=== PATIENT | female | born 1995 | race Caucasian/White ===

== ENCOUNTER 2023-02-02 08:04 | Outpatient (OUT) | payer MEDICAID, SELFPAY ==
--- NOTE | 2023-02-02 08:09 | US_ITS ---
The [address] [address] Patient Name: ROSALVA HARDIN MRN: [id number] date: 1995 Sex: F Assigned Patient Location: US Current Patient Location: US Accession/Order Number: [id number] Exam Date: 02/02/2023 08:20 Report Date: 02/02/2023 08:58 At the request of: SUZANNE JON Procedure: US OB transvaginal EXAMINATION: US OB transvaginal HISTORY: POSITIVE PREG TEST COMPARISON: No relevant comparison available. FINDINGS: GESTATIONAL SAC: Present and normal appearing. YOLK SAC: Present and normal appearing. POLE: Present and normal appearing. CARDIAC: Present. UTERUS: Normal size and appearance. OVARIES: Right: Normal. Left: Normal. CERVIX: 3.4 cm in length and closed. CUL-DE-SAC: Normal. OTHER: None. AGE BY LMP: 9 weeks 2 days HOLDEN BY LMP: 09/05/2023 AGE BY US CRL: 8 weeks 2 days HOLDEN BY US CRL: 09/12/2023 IMPRESSION: 1. Single live intrauterine . Electronically authenticated by: BRYAN ESPINO Date: 02/02/2023 08:58
== END 2023-02-02 08:05 ==
PROVIDERS: Visit Provider Obstetrics & Gynecology
DX: Z34.91 Encounter for supervision of normal pregnancy, unspecified, first trimester (principal); Z3A.09 9 weeks gestation of pregnancy
CPT/HCPCS: 76817

== ENCOUNTER 2023-02-09 16:27 | Outpatient (OUT) | payer MEDICAID, SELFPAY ==
[2023-02-09 17:11] LABS: Basophils Percent Auto 0.3 % (0.2-2.0); Eosinophils Absolute Auto 0.3 10^3/uL (0.0-0.7); Eosinophils Percent Auto 3.4 % (0.9-7.0); Hematocrit 36.3 % (36.0-48.0); Hemoglobin 12.2 g/dL (12.0-16.0); Immature Granulocytes Abs Auto 0.04 10^3/uL (0.00-0.03); Immature Granulocytes Pct Auto 0.4 % (0.0-0.5); Lymphocytes Absolute Auto 1.7 10^3/uL (1.2-3.8); Lymphocytes Percent Auto 17.6 % (20.5-60.0); Mean Corpuscular HGB Conc 33.6 g/dL (29.9-35.2); Mean Corpuscular Hemoglobin 30.5 pg (26.7-34.0); Mean Corpuscular Volume 90.8 fL (81.0-99.0); Mean Platelet Volume 9.6 fL (9.5-13.5); Monocytes Absolute Auto 0.9 10^3/uL (0.3-0.8); Monocytes Percent Auto 8.6 % (1.7-12.0); Neutrophils Absolute Auto 6.9 10^3/uL (1.4-6.5); Neutrophils Percent Auto 69.7 % (43.0-75.0); Platelet Count 225 10^3/uL (150-450); Red Cell Distribution Width 11.9 % (11.0-15.0); White Blood Count 9.9 10^3/uL (4.0-11.0)
[2023-02-09 17:33] LABS: Estimated Average Glucose 77 mg/dL; Glycohemoglobin A1C 4.3 % (4.5-6.2)
[2023-02-09 17:42] LABS: Thyroid Stimulating Hormone 1.029 uIU/mL (0.358-3.740)
[2023-02-11 07:07] LABS: Rubella Antibodies, IgG 2.44 index (Immune >0.99)
[2023-02-11 08:09] LABS: HBsAg Screen Negative (Negative); HCV Ab Non Reactive (Non Reactive); HIV Ab/p24 Ag Screen Non Reactive (Non Reactive)
[2023-02-11 09:09] LABS: Rapid Plasma Reagin, Quant Non Reactive (NonRea<1:1)
== END 2023-02-09 16:28 ==
PROVIDERS: Visit Provider Obstetrics & Gynecology
DX: Z34.01 Encounter for supervision of normal first pregnancy, first trimester (principal); N92.6 Irregular menstruation, unspecified
CPT/HCPCS: 36415; 83036; 84443; 85025; 86592; 86762; 86803; 86850; 86900; 86901; 87340; 87389

== ENCOUNTER 2023-03-08 16:21 | Emergency (ER) | payer MEDICAID, SELFPAY ==
[2023-03-08 16:25] VITALS: BP 135/90; PULSE 135; RESP 18; TEMP 36.7; O2SAT 100; BMI 25.7
[2023-03-08 16:29] VITALS: O2SAT 100
[2023-03-08 16:31] VITALS: BP 135/90; PULSE 77; PULSE 87; RESP 14; RESP 16; O2SAT 100; O2SAT 99
--- NOTE | 2023-03-08 16:33 | ECG_ITS ---
[facility] Test Date: 2023-03-08 Pat Name: Priyanka Shukla Department: Room: - Gender: Female [employer]ter: : 1995 Requested By: [id number] Order Number: [id number] Reading MD: KAYLEEN EISENBERG Measurements Intervals [place] Rate: 91 P: 58 NH: 130 QRS: 68 QRSD: 88 T: -9 QT: 336 QTc: 385 Interpretive Statements 1100 Sinus rhythm [address] depression [address] & [place] abnormality 9150 abnormal ECG No previous ECG available for comparison Electronically Signed On 03-09-2023 7:14:41 EDT by KAYLEEN EISENBERG
--- NOTE | 2023-03-08 16:34 | ED.GENADUL1 ---
HPI - General Adult General Chief complaint: Arrhythmia/Palpitations Stated complaint: HEART PALPITATIONS, 13 WEEKS Time Seen by Provider: 03/08/23 16:24 Source: patient Mode of arrival: walk-in Limitations: no limitations History of Present Illness HPI narrative: 27-year-old female who is thirteen weeks presents for palpitations. She feels an extra beat occasionally, about once an hour and she's had this for about a week. She doesn't drink much caffeine in all, she states she keeps an eye on that. No syncope or presyncope. No fever or vomiting. No vaginal bleeding. Related Data Allergies Allergy/AdvReac Type Severity Reaction Status Date / Time No Known Drug Allergies Allergy Verified 03/08/23 16:25 Review of Systems ROS Narrative A ten point review of systems is negative except as noted above. PFSH PFSH Social History Smoking status: Current every day smoker Exam Narrative Exam Narrative: Nurses note and vital signs reviewed and patient is not hypoxic. General: The patient appears well and in no apparent distress. Patient is resting comfortably on cart. Skin: Warm, dry, no pallor noted. There is no rash noted. Head: Normocephalic, atraumatic Eye: Normal conjunctiva, no drainage Ears, Nose, Mouth, and Throat: oral mucosa is moist. Nares patent. Cardiovascular: Regular Rate and Rhythm Respiratory: Patient is in no distress, no accessory muscle use, lungs are clear to auscultation, no wheezing, rales or rhonchi Back: non-tender GI: soft Musculoskeletal: The patient has no evidence of calf tenderness, no pitting edema, symmetrical pulses noted bilaterally Neurological: A&O, normal speech Psychiatric: Cooperative Constitutional Vital Signs - 24 hr 03/08/23 16:25 03/08/23 16:29 03/08/23 16:31 Temperature 98.1 F Pulse Rate 87 Pulse Rate [Monitor] 135 H Respiratory Rate 18 14 Blood Pressure 135/90 H Blood Pressure [Left Arm] 135/90 H Pulse Oximetry 100 100 99 Oxygen Delivery Method Room Air Course Vital Signs Vital signs: Vital Signs Temperature 98.1 F 03/08/23 16:25 Pulse Rate 135 H 03/08/23 16:25 Respiratory Rate 18 03/08/23 16:25 Blood Pressure 135/90 H 03/08/23 16:25 Pulse Oximetry 100 03/08/23 16:25 Oxygen Delivery Method Room Air 03/08/23 16:25 Temperature 98.1 F 03/08/23 16:25 Pulse Rate 87 03/08/23 16:31 Respiratory Rate 14 03/08/23 16:31 Blood Pressure 135/90 H 03/08/23 16:31 Pulse Oximetry 99 03/08/23 16:31 Oxygen Delivery Method Room Air 03/08/23 16:25 Medical Decision Making MDM Narrative Medical decision making narrative: we've had the patient on heart monitor and she's had no dysrhythmias and she hasn't had any symptoms either. Blood work is essentially normal and she'll be discharged home. Treatment diagnosis and follow-up were discussed with the patient. Differential Diagnosis Differential Diagnosis: PVCs, anxiety Lab Data Lab results reviewed: Yes I reviewed the patient's lab results Labs: Lab Results 03/08/23 Range/Units 16:42 WBC 10.0 (4.0-11.0) 10^3/uL RBC 3.61 L (4.20-5.40) 10^6/uL Hgb 11.1 L (12.0-16.0) g/dL Hct 31.9 L (36.0-48.0) % MCV 88.4 (81.0-99.0) fL MCH 30.7 (26.7-34.0) pg MCHC 34.8 (29.9-35.2) g/dL RDW 12.1 (11.0-15.0) % Plt Count 235 (150-450) 10^3/uL MPV 9.5 (9.5-13.5) fL Neut % (Auto) 65.1 (43.0-75.0) % Lymph % (Auto) 21.0 (20.5-60.0) % Taylor % (Auto) 8.5 (1.7-12.0) % Eos % (Auto) 4.6 (0.9-7.0) % Baso % (Auto) 0.3 (0.2-2.0) % Neut # (Auto) 6.5 (1.4-6.5) 10^3/uL Lymph # (Auto) 2.1 (1.2-3.8) 10^3/uL Taylor # (Auto) 0.9 H (0.3-0.8) 10^3/uL Eos # (Auto) 0.5 (0.0-0.7) 10^3/uL Baso # (Auto) 0.0 (0.0-0.1) 10^3/uL Abs Immat Gran (auto) 0.05 H (0.00-0.03) 10^3/uL Imm/Tot Granulo (auto) 0.5 (0.0-0.5) % Sodium 136 (136-145) mmol/L Potassium 3.9 (3.5-5.1) mmol/L Chloride 103 (98-107) mmol/L Carbon Dioxide 26.9 (21.0-32.0) mmol/L Anion Gap 10.0 BUN 9.0 (7.0-18.0) mg/dL Creatinine 0.52 L (0.55-1.02) mg/dL Est GFR ( Amer) >60 (>=60) Est GFR (Non-Af Amer) >60 (>=60) BUN/Creatinine Ratio 17.3 Glucose 90 (74-106) mg/dL Calcium 8.9 (8.5-10.1) mg/dL ECG Data Attestation: I personally reviewed and interpreted this ECG as follows: ( EKG on my interpretation shows sinus rhythm with a rate of 91) Discharge Plan Discharge Chief Complaint: Arrhythmia/Palpitations Clinical Impression: Palpitations Patient Disposition: Home, Self-Care Time of Disposition Decision: 17:16 Condition: Good Mode of Transportation: Private Vehicle Instructions: Heart Palpitations (ED) Stand Alone Forms: Portal Instructions Referrals: [facility] [Primary Care Provider] - 1 week
[2023-03-08 16:58] LABS: Basophils Percent Auto 0.3 % (0.2-2.0); Eosinophils Absolute Auto 0.5 10^3/uL (0.0-0.7); Eosinophils Percent Auto 4.6 % (0.9-7.0); Hematocrit 31.9 % (36.0-48.0); Hemoglobin 11.1 g/dL (12.0-16.0); Immature Granulocytes Abs Auto 0.05 10^3/uL (0.00-0.03); Immature Granulocytes Pct Auto 0.5 % (0.0-0.5); Lymphocytes Absolute Auto 2.1 10^3/uL (1.2-3.8); Mean Corpuscular HGB Conc 34.8 g/dL (29.9-35.2); Mean Corpuscular Hemoglobin 30.7 pg (26.7-34.0); Mean Corpuscular Volume 88.4 fL (81.0-99.0); Mean Platelet Volume 9.5 fL (9.5-13.5); Monocytes Absolute Auto 0.9 10^3/uL (0.3-0.8); Monocytes Percent Auto 8.5 % (1.7-12.0); Neutrophils Absolute Auto 6.5 10^3/uL (1.4-6.5); Neutrophils Percent Auto 65.1 % (43.0-75.0); Platelet Count 235 10^3/uL (150-450); Red Blood Count 3.61 10^6/uL (4.20-5.40); Red Cell Distribution Width 12.1 % (11.0-15.0)
[2023-03-08] MEDS: 0.9 % SODIUM CHLORIDE 1,000 ML 1000 ML IV (16:59)
[2023-03-08 17:02] LABS: BUN Creatinine Ratio 17.3; Calcium 8.9 mg/dL (8.5-10.1); Carbon Dioxide 26.9 mmol/L (21.0-32.0); Chloride 103 mmol/L (98-107); Estimated GFR (African America >60 (>=60); Estimated GFR (Non-African Ame >60 (>=60); Glucose 90 mg/dL (74-106); Potassium 3.9 mmol/L (3.5-5.1); Sodium 136 mmol/L (136-145)
[2023-03-08 17:36] VITALS: BP 107/66
== END 2023-03-08 18:03 | disposition home or self-care (01) ==
PROVIDERS: Emergency Provider Emergency Medicine
DX: O26.891 Other specified pregnancy related conditions, first trimester (principal); R00.2 Palpitations; O99.331 Smoking (tobacco) complicating pregnancy, first trimester; F17.210 Nicotine dependence, cigarettes, uncomplicated; Z3A.12 12 weeks gestation of pregnancy
CPT/HCPCS: 36415; 80048; 85025; 93005; 99284

== ENCOUNTER 2023-03-14 10:50 | Outpatient (RCR) | payer OTHER, SELFPAY | END 2023-04-14 15:56 | disposition home or self-care (01) | LOC: PT 10:50 | PROVIDERS: Visit Provider Nurse Practitioner Family | DX: S83.282D Other tear of lateral meniscus, current injury, left knee, subsequent encounter (principal) | CPT/HCPCS: 97110; 97162 ==

== ENCOUNTER 2023-04-16 21:37 | Outpatient (REF) | payer BC, SELFPAY ==
[2023-04-20 14:14] LABS: Age Gdln ACOG Testing Note (.); IGP, rfx Aptima HPV ASCU Note (.)
== END 2023-04-16 21:38 | disposition home or self-care (01) ==
LOC: LAB 21:37
PROVIDERS: Visit Provider Physician Assistant
DX: Z01.419 Encounter for gynecological examination (general) (routine) without abnormal findings (principal)
CPT/HCPCS: G0145

== ENCOUNTER 2023-04-19 16:32 | Outpatient (OUT) | payer BC, SELFPAY ==
[2023-04-26 00:07] LABS: AFP Value 60.8 ng/mL (.); Gestat. Age Based On As provided (.); Maternal Age At EDD 26.5 yr (.); OSBR Risk 1 IN See interpretation. (.); Results Report (.)
== END 2023-04-19 16:33 | disposition home or self-care (01) ==
PROVIDERS: Visit Provider Obstetrics & Gynecology
DX: Z34.92 Encounter for supervision of normal pregnancy, unspecified, second trimester (principal)
CPT/HCPCS: 36415; 82105

== ENCOUNTER 2023-05-18 09:58 | Outpatient (OUT) | payer BC, SELFPAY ==
--- NOTE | 2023-05-18 10:03 | US_ITS ---
[address] [address] Patient Name: ROSALVA HARDIN MRN: [id number] date: 1995 Sex: F Assigned Patient Location: US Current Patient Location: Accession/Order Number: [id number] Exam Date: 05/18/2023 10:04 Report Date: 05/18/2023 18:14 At the request of: PONCE ADLER Procedure: US OB cervical length EXAMINATION: US OB anatomy, US OB cervical length HISTORY: Second trimester Z34.92 COMPARISON: No relevant comparison available. TECHNIQUE: Transabdominal sonographic examination was performed for obstetrical and evaluation. FINDINGS: Number: 1 Heart Rate: 146.7 bpm H.B. /min Amniotic Fluid Volume: position: Cephalic presentation, longitudinal lie Placental Location: ANTERIOR, grade 0. Placental edge is 4.2 cm from the internal os Cervix Length: 4.4 cm , closed Normal anatomy: Lateral ventricles, cerebellum, posterior fossa, nose, lips, orbits, four-chamber heart, RVOT, LVOT, diaphragm, stomach, kidneys, abdominal cord insertion, bladder, umbilical arteries, three-vessel cord, spine, extremities BIOMETRY: BPD: 5.6 cm 23 weeks 1 days , 40% HC: 21.8 cm 23 weeks 6 days, 59% AC: 20.4 cm 25 weeks 0 days, 88% FL: 4.2 cm 23 weeks 4 days, 47% EFW:676.5 grams; 1 lb. 8 oz., 86% FL/AC: 20.4 FL/BPD: 74.1 HC/AC: 1.1 GESTATIONAL AGE: Age by EDC: 23 weeks 2 days Age by current US: 23 weeks 6 days HOLDEN by current US: 09/08/2023 HOLDEN by EDC: 09/12/2023 US/US OB cervical length IMPRESSION: Normal anatomy scan Closed cervix measuring 4.4 cm *Reference: [employer] Practice Guideline for the performance of Obstetric Ultrasound Examinations, June 03, 2007. Electronically authenticated by: RONNY NARANJO Date: 05/18/2023 18:14
--- NOTE | 2023-05-18 10:03 | US_ITS ---
[address] [address] Patient Name: ROSALVA HARDIN MRN: [id number] date: 1995 Sex: F Assigned Patient Location: US Current Patient Location: US Accession/Order Number: [id number] Exam Date: 05/18/2023 10:04 Report Date: 05/18/2023 18:14 At the request of: PONCE ADLER Procedure: US OB anatomy EXAMINATION: US OB anatomy, US OB cervical length HISTORY: Second trimester Z34.92 COMPARISON: No relevant comparison available. TECHNIQUE: Transabdominal sonographic examination was performed for obstetrical and evaluation. FINDINGS: Number: 1 Heart Rate: 146.7 bpm H.B. /min Amniotic Fluid Volume: position: Cephalic presentation, longitudinal lie Placental Location: ANTERIOR, grade 0. Placental edge is 4.2 cm from the internal os Cervix Length: 4.4 cm , closed Normal anatomy: Lateral ventricles, cerebellum, posterior fossa, nose, lips, orbits, four-chamber heart, RVOT, LVOT, diaphragm, stomach, kidneys, abdominal cord insertion, bladder, umbilical arteries, three-vessel cord, spine, extremities BIOMETRY: BPD: 5.6 cm 23 weeks 1 days , 40% HC: 21.8 cm 23 weeks 6 days, 59% AC: 20.4 cm 25 weeks 0 days, 88% FL: 4.2 cm 23 weeks 4 days, 47% EFW:676.5 grams; 1 lb. 8 oz., 86% FL/AC: 20.4 FL/BPD: 74.1 HC/AC: 1.1 GESTATIONAL AGE: Age by EDC: 23 weeks 2 days Age by current US: 23 weeks 6 days HOLDEN by current US: 09/08/2023 HOLDEN by EDC: 09/12/2023 US/US OB anatomy IMPRESSION: Normal anatomy scan Closed cervix measuring 4.4 cm *Reference: [employer] Practice Guideline for the performance of Obstetric Ultrasound Examinations, June 03, 2007. Electronically authenticated by: RONNY NARANJO Date: 05/18/2023 18:14
== END 2023-05-18 09:59 | disposition home or self-care (01) ==
LOC: US 09:59
PROVIDERS: Visit Provider Physician Assistant
DX: Z34.92 Encounter for supervision of normal pregnancy, unspecified, second trimester (principal)
CPT/HCPCS: 76805; 76817

== ENCOUNTER 2023-05-21 12:51 | Outpatient (RCR) | payer OTHER, SELFPAY | END 2023-06-01 15:02 | disposition home or self-care (01) | LOC: PT 12:51 | DX: S83.92XD Sprain of unspecified site of left knee, subsequent encounter (principal); M79.605 Pain in left leg | CPT/HCPCS: 97110; 97161 ==

== ENCOUNTER 2023-06-13 08:19 | Outpatient (OUT) | payer BC, SELFPAY ==
[2023-06-13 09:40] LABS: Basophils Percent Auto 0.2 % (0.2-2.0); Eosinophils Absolute Auto 0.3 10^3/uL (0.0-0.7); Eosinophils Percent Auto 2.2 % (0.9-7.0); Hematocrit 31.4 % (36.0-48.0); Hemoglobin 10.5 g/dL (12.0-16.0); Immature Granulocytes Abs Auto 0.13 10^3/uL (0.00-0.03); Lymphocytes Absolute Auto 1.7 10^3/uL (1.2-3.8); Lymphocytes Percent Auto 13.4 % (20.5-60.0); Mean Corpuscular HGB Conc 33.4 g/dL (29.9-35.2); Mean Corpuscular Hemoglobin 31.4 pg (26.7-34.0); Mean Platelet Volume 9.5 fL (9.5-13.5); Monocytes Absolute Auto 0.9 10^3/uL (0.3-0.8); Neutrophils Absolute Auto 9.5 10^3/uL (1.4-6.5); Neutrophils Percent Auto 76.2 % (43.0-75.0); Platelet Count 207 10^3/uL (150-450); Red Blood Count 3.34 10^6/uL (4.20-5.40); Red Cell Distribution Width 13.1 % (11.0-15.0); White Blood Count 12.5 10^3/uL (4.0-11.0)
[2023-06-13 09:52] LABS: Glucose 1 Hour 89 mg/dL
== END 2023-06-13 08:20 | disposition home or self-care (01) ==
LOC: LAB 08:21
PROVIDERS: Visit Provider Obstetrics & Gynecology
DX: Z34.92 Encounter for supervision of normal pregnancy, unspecified, second trimester (principal)
CPT/HCPCS: 36415; 82950; 85025

== ENCOUNTER 2023-08-16 20:35 | Outpatient (REF) | payer BC, SELFPAY | END 2023-08-16 20:36 | disposition home or self-care (01) | LOC: LAB 20:35 | PROVIDERS: Visit Provider Physician Assistant | DX: Z34.93 Encounter for supervision of normal pregnancy, unspecified, third trimester (principal) | CPT/HCPCS: 87081 ==

== ENCOUNTER 2023-08-17 11:05 | Outpatient (OUT) | payer BC, MEDICAID, SELFPAY ==
--- NOTE | 2023-08-17 11:12 | US_ITS ---
[address] [address] Patient Name: ROSALVA HARDIN MRN: [id number] date: 1995 Sex: F Assigned Patient Location: US Current Patient Location: Accession/Order Number: [id number] Exam Date: 08/17/2023 11:15 Report Date: 08/17/2023 12:08 At the request of: SUZANNE JON Procedure: US OB growth EXAMINATION: US OB growth HISTORY: Size Inconsistent With Dates COMPARISON: No relevant comparison available. TECHNIQUE: Transabdominal sonographic examination was performed for obstetrical and evaluation. FINDINGS: Number: 1 Heart Rate: 135.7 bpm H.B. /min position: Cephalic presentation, longitudinal lie Amniotic Fluid Volume: 10.2 cm. Largest fluid pocket 5.4 cm Placental Location: Blank BIOMETRY: BPD: 8.8 cm 35 weeks 5 days , 43% HC: 33.4 cm 38 weeks 1 days, 66% AC: 33.8 cm 37 weeks 5 days, 92% FL: 7.2 cm 36 weeks 5 days , 59% EFW:3171.1 grams; 7 lbs. 0 oz., 79% FL/AC: 21.2 FL/BPD: 81.2 HC/AC: 1.0 GESTATIONAL AGE: Age by EDC: 36 weeks 2 days Age by current US: 37 weeks 1 days HOLDEN by current US: 09/06/2023 HOLDEN by EDC: 09/12/2023 US/US OB growth IMPRESSION: Normal interval growth *Reference: [employer] Practice Guideline for the performance of Obstetric Ultrasound Examinations, June 03, 2007. Electronically authenticated by: RONNY NARANJO Date: 08/17/2023 12:08
== END 2023-08-17 11:06 | disposition home or self-care (01) ==
LOC: US 11:05
PROVIDERS: Visit Provider Obstetrics & Gynecology
DX: O26.849 Uterine size-date discrepancy, unspecified trimester (principal); Z3A.36 36 weeks gestation of pregnancy
CPT/HCPCS: 76816

== ENCOUNTER 2023-09-09 10:52 | Inpatient (IN) | payer MEDICAID, SELFPAY ==
[2023-09-09] VITALS (34 sets, daily range): BP systolic 98–143; BP diastolic 50–92; PULSE 86–118; RESP 15–32; TEMP 36.1–37.2; O2SAT 96–100
--- OUTSIDE RECORDS SUMMARY | 2023-09-09 10:57 | XMS_ITS | CCD ---
Author Name Unknown Address [address] [place] [address] Organization [facility] Care Team Providers Care Environmental Management Specialist Name Role Phone Kyle Pepe Attending Unavailable Kyle Pepe Admitting Unavailable Shannon Glez Primary Care Unavailable MD Shannon Glez Primary Care Provider [phone] MD Kyle Pepe Admit Provider MD Kyle Pepe Attending Provider FIONA GRIER Primary Care Unavailable LIZ, DR CRAVEN Admitting Unavailable LIZ, DR CRAVEN Attending Unavailable SRINIVAS, DR BRYAN Hernandez Consulting Unavailable INDIA SAGASTUME Consulting Unavailable LIZ, DR CRAVEN Consulting Unavailable DAMI CHAPIN Admitting Unavailable DAMI CHAPIN Attending Unavailable [facility] Primary Care Unavaila liz NARANJO, DR RONNY Gan Consulting Unavailable DAMI CHAPIN Consulting Unavailable DANAY, DR PALACIOS Admitting Unavailable DANAY, DR PALACIOS Attending Unavailable FIONA GRIER Primary Care Unavailable DANAY, DR PALACIOS Consulting Unavailable FIONA GRIER Primary Care Unavailable LIZ, DR CRAVEN Admitting Unavailable LIZ, DR CRAVEN Attending Unavailable SRINIVAS, DR BRYAN Hernandez Consulting Unavailable LIZ, DR CRAVEN Consulting Unavailable AUDREY MORGAN Referring Unavailable AUDREY MORGAN Attending Unavailable RONNY SAHA Attending Unavailable RONNY SAHA Attending Unavailable DAMI CHAPIN Referring Unavailable Elvis Quinn Referring Unavaila Elvis Perez Attending UnavailElvis Peterson Admitting Unavaila Sai Godoy Attending Unavailable ANN GRIERIN Maday Referring Unavailable FIONA GRIER Attending Unavailable ANNA, PEYTON Nassar Admitting Unavailable Sunshine Mejias Attending Unavailable Katherin PETERSEN Attending Unavailable Papi Lilly Attending Unavailable SUZANNE JON Attending Unavailable PONCE ADLER Attending Unavailable SUZANNE JON Attending Unavailable PONCE ADLER Attending Unavailable PONCE ADLER Attending Unavailable PONCE ADLER Attending Unavailable Medications Current Medications Medication Drug Class(es) Dates Sig (Normalized) Sig (Original) DULoxetine 30 mg delayed release oral capsule (1 source) Serotonin and Norepinephrine Reuptake Inhibitor Start: 07-03-2022 take 30 mg by mouth once daily at bedtime Duloxetine Active 30 MG PO Daily at bedtime July 03, 2022 12:00am 1.5 ml fremanezumab-vfrm 150 mg/ml prefilled syringe (1 source) Start: 06-30-2022 Fremanezumab-Vfr m (Ajovy Autoinjector) 225 mg/1.5 mL Auto-Injector Active 225 MG SUBCUT every week June 30, 2022 12:00am traZODone hydrochloride 50 mg oral tablet (1 source) Serotonin Reuptake Inhibitor Start: 07-03-2022 take 50 mg by mouth once daily at bedtime Trazodone Active 50 MG PO Daily at bedtime July 03, 2022 12:00am Problems Active Problems Problem Classification Problem Date Documented Da te Episodic/Chronic Anxiety disorders (3 sources) Anxiety disorder, unspecified; Translations: [Anxiety] Onset: 06-30-2022 06-30-2022 Chronic E Codes: Natural/environment (1 source) Exposure to other specified factors, initial encounter; Translations: [EXPOSURE OTHER SPEC FACTORS INITIAL] Onset: 09-08-2022 Episodic Joint disorders and dislocations; trauma-related (3 sources) Unspecified internal derangement of left knee; Translations: [Other disorders of patella, left knee] Onset: 11-13-2022 Chronic Mood disorders (1 source) Bipolar disorder, unspecified; Translations: [Bipolar disorder, unspecified] Onset: 06-30-2022 Chronic Other non-traumatic joint disorders (3 sources) Pain in left knee; Translations: [PAIN IN LEFT KNEE] Onset: 09-06-2022 Episodic Sprains and strains (4 sources) Sprain of unspecified site of left knee, initial encounter; Translations: [Unspecified sprain of right wrist, initial encounter] Onset: 04-06-2022 Episodic Suicide and intentional self-inflicted injury (6 sources) Poisoning by unspecified drugs, medicaments and biological substances, intentional self-harm, initial encounter; Translations: [Suicidal ideations] Onset: 06-30-2022 06-30-2022 Episodic Past or Other Problems Problem Classification Problem Date Documented Date Episodic/Chronic E Codes: Fall (1 source) Fall on same level from slipping, tripping and stumbling with subsequent striking against unspecified object, initial encounter; Translations: [FALL SAME LVL SLIP STRK UNS OBJ INT] Onset: 04-06-2022 Episodic Immunizations and screening for infectious disease (1 source) Encounter for screening for human papillomavirus (HPV); Translations: [ENC SCREENING HUMAN PAPILLOMAVIRUS] Onset: 03-21-2022 Episodic Other non-traumatic joint disorders (4 sources) Pain in left wrist; Translations: [PAIN IN LEFT WRIST] Onset: 04-04-2022 Episodic Other screening for suspected conditions (not mental disorders or infectious disease) (4 sources) Encounter for screening for malignant neoplasm of cervix; Translations: [ENC SCREENING MALIG NEOPLASM CERV] Onset: 03-20-2022 Episodic Results Test Name Value Interpretation Reference Range Facility Family Medicine Office/Clini c Noteon 06-06-2023 Family Medicine Office/Clinic Note Chief Complaint EST cough congestion HPI Staff 28 year old female presents with being 26 weeks with congestion cough and sore throat states she is so congested that she hears it from her ears?! states she doesnt know what to take due to started a week ago History of Present Illness I have reviewed and verified the staff HPI to be accurate for this encounter. Portions of this record have been created with voice recognition software. Occasional wrong-word or ?fpgga-o-eyos? substitutions may have occurred due to the inherent limitations of voice recognition software. 28-year-old female who is currently 26 weeks gestation G2, P0 states 1 prior which she states she had a blighted ovum. Patient complaint today of sinus congestion cough in which she states she has been intermittent over the past several weeks. She states in the past 6 to 7 days she has noted sinus congestion and pressure in bilateral ears. She states initially she had sore throat however that resolved. She does note cough. Patient states she was coughing more so this morning but improves throughout the course of the day. She states some sinus pressure and bilateral ear pressure. She wants to make sure that she does not have a sinus infection but also states she does not know what xege-yrm-abuybuu medications she is able to take. She denies any abdominal pain nausea vomiting or diarrhea denies any pelvic pain vaginal pain or vaginal bleeding. She states overall she has felt pretty good so far during this . She denies any nausea vomiting diarrhea or abdominal pain. She states at the time of symptom onset her boss had similar symptoms but denies any other recent sick contacts or recent travel. She does note she did take a home COVID-19 test a couple days ago that was negative and she does not have concern for COVID-19 today. She denies fever chills or weakness. She has no other concerns at this time. Review of Systems PHQ Score Initial Depression Screen Score: 0 ROS negative unless otherwise stated in HPI. Physical Exam Vitals & Measurements T: 37 ?C(Oral) HR: 84(Peripheral) BP: 114/76 SpO2: 99% HT: 63 in HT: 159 cm WT: 76 kg WT: 167.2 lb BMI: 30.06 General: Pleasant female, no acute distress Eyes: Bilateral conjunctival within normal limits no injection Ears: Bilateral tympanic membranes are within normal limits no erythema or bulging. Bilateral external auditory canals are within normal limits no erythema or edema. Nose: mild nasal mucosa inflammation and edema Mouth: No tonsillar erythema or exudate. Uvula is midline. No signs of peritonsillar abscess. No trismus or drooling. Neck: no adenopathy Lungs: Lung sounds are clear bilaterally. No wheezing rhonchi or crackles on exam. Cardio: S1, S2, regular rhythm. No murmurs gallops or rubs. Abdomen: abdomen soft Musculoskeletal: not assessed Extremity: not assessed Neurologic: not assessed Skin: No rashes, ulcerations, or suspicious lesions Mental Status: Alert and oriented x3. Normal mood and affect Assessment/Plan I discussed with pt that flonase is safe in , but to always confirm with OB, in addition to asking about plain robitussin for cough. Pt is of understanding. She understands to return if needed for any worsening or concerning symptoms. Seek OB if spike high fever, develop chest pain, SOB, or trouble breathing. 1. Viral URI with cough (J06.9: Acute upper respiratory infection, unspecified) Discussed exam and hx are consistent with viral illness. Advised of typical duration. Discussed antibiotics unfortunately do not treat viral illnesses, it will take time to run course- usually 7-14 days. Fluids/rest encouraged, PRN tylenol/ibuprofen for any pain. May use flonase for symptomatic tx. Contact round cutter operator to confirm flonase is safe usage in addition to plain robitussin. Follow up with PCP if not improving over next --- days or significantly worsening symptoms. Patient verbalized understanding of tx plan. Ordered: fluticasone nasal, 1 spray(s), Nasal, BID for 7 day(s), 16 gm, Refill(s) 0, each nostril, [facility], 159, cm, 06/06/23 11:45:00 EDT, Height/Length Dosing, 76, kg, 06/06/23 11:45:00 EDT, Weight Dosing Follow-up With When Contact Information Newton DUNCAN, Shannon [address] [place] [address]- Additional Instructions: Patient Education Upper Respiratory Infection, Adult Problem List/Past Medical History Ongoing Acute medial meniscus tear of left knee Anxiety Chlamydia Episodic mood disorder. Lower back pain Posttraumatic stress disorder Suicide attempt Historical No qualifying data Procedure/Surgical History Dilation and curettage. Medications Flonase 0.05 mg/inh [place], 1 spray(s), Nasal, BID Allergies No Known Allergies Social History Alcohol - Low Risk, 12/09/2022 Current, 1-2 times per month, Household alcohol concerns: No., 12/09/2022 Substance Abuse - Low Risk, 12/09/2022 (more content not included)... Normal [facility] Comment on above: Result Comment: Elec tronically Signed By: Maxx WHALEN, Papi Green\.br\Date and Time Signed: 06/06/23 13:07 EDT Patient Educationon 06-06-20 Patient Education Infectious Disease Upper Respiratory Infection, Adult An upper respiratory infection (URI) is a common viral infection of the nose, throat, and upper air passages that lead to the lungs. The most common type of URI is the common cold. URIs usually get better on their own, without medical treatment. What are the causes? A URI is caused by a virus. You may catch a virus by: ? Breathing in droplets from an infected person's cough or sneeze. ? Touching something that has been exposed to the virus (is contaminated) and then touching your mouth, nose, or eyes. What increases the risk? You are more likely to get a URI if: ? You are very young or very old. ? You have close contact with others, such as at work, school, or a health care facility. ? You smoke. ? You have long-term (chronic) heart or lung disease. ? You have a weakened disease-fighting system (immune system). ? You have nasal allergies or asthma. ? You are experiencing a lot of stress. ? You have poor nutrition. What are the signs or symptoms? A URI usually involves some of the following symptoms: ? Runny or stuffy (congested) nose. ? Cough. ? Sneezing. ? Sore throat. ? Headache. ? Fatigue. ? Fever. ? Loss of appetite. ? Pain in your forehead, behind your eyes, and over your cheekbones (sinus pain). ? Muscle aches. ? Redness or irritation of the eyes. ? Pressure in the ears or face. How is this diagnosed? This condition may be diagnosed based on your medical history and symptoms, and a physical exam. Your health care provider may use a swab to take a mucus sample from your nose (nasal swab). This sample can be tested to determine what virus is causing the illness. How is this treated? URIs usually get better on their own within 7?10 days. Medicines cannot cure URIs, but your health care provider may recommend certain medicines to help relieve symptoms, such as: ? Usdx-yjb-wnoysuw cold medicines. ? Cough suppressants. Coughing is a type of defense against infection that helps to clear the respiratory system, so take these medicines only as recommended by your health care provider. ? Fever-reducing medicines. Follow these instructions at home: Activity ? Rest as needed. ? If you have a fever, stay home from work or school until your fever is gone or until your health care provider says your URI cannot spread to other people (is no longer contagious). Your health care provider may have you wear a face mask to prevent your infection from spreading. Relieving symptoms ? Gargle with a mixture of salt and water 3?4 times a day or as needed. To make salt water, completely dissolve ??1 tsp (3?6 g) of salt in 1 cup (237 mL) of warm water. ? Use a cool-mist humidifier to add moisture to the air. This can help you breathe more easily. Eating and drinking ? Drink enough fluid to keep your urine pale yellow. ? Eat soups and other clear broths. General instructions ? Take hkoe-fik-qojyjnz and prescription medicines only as told by your health care provider. These include cold medicines, fever reducers, and cough suppressants. ? Do not use any products that contain nicotine or tobacco. These products include cigarettes, chewing tobacco, and vaping devices, such as e-cigarettes. If you need help quitting, ask your health care provider. ? Stay away from secondhand smoke. ? Stay up to date on all immunizations, including the yearly (annual) flu vaccine. ? Keep all follow-up visits. This is important. How to prevent the spread of infection to others URIs can be contagious. To prevent the infection from spreading: ? Wash your hands with soap and water for at least 20 seconds. If soap and water are not available, use hand general inspector. ? Avoid touching your mouth, face, eyes, or nose. ? Cough or sneeze into a tissue or your sleeve or elbow instead of into your hand or into the air. Contact a health care provider if: ? You are getting worse instead of better. ? You have a fever or chills. ? Your mucus is brown or red. ? You have yellow or brown discharge coming from your nose. ? You have pain in your face, especially when you bend forward. ? You have swollen neck glands. ? You have pain while swallowing. ? You have white areas in the back of your throat. Get help right away if: ? You have shortness of breath that gets worse. ? You have severe or persistent: ? Headache. ? Ear pain. ? Sinus pain. ? Chest pain. ? You have chronic lung disease along with any of the following: ? Making high-pitched whistling sounds when you breathe, most often when you breathe out (wheezing). ? Prolonged cough (more than 14 days). ? Coughing up blood. ? A change in your usual mucus. ? You have a stiff neck. ? You have changes in your: ? Vision. ? Hearing. ? Thinking. ? Mood. These symptoms may be an emergency. Get help (more content not included)... Normal [facility] Follow-Upon 06-04-2023 Follow-Up [id number] Priyanka Hardin 1995 F Date Provider Department Center 06/04/2023 RONNY AZAR MP ORTHO MPORTHO No family history on file Level of Service:07879 [place] OFFICE/OUTPATIENT ESTABLISHED MOD MDM 30-39 MIN () Reason for Visit and Comments: Pain [136] Normal [facility] Office Visiton 04-24-2023 Follow-up visit [id number] Priyanka Hardin 1995 F Date Provider Department Center 04/24/2023 RONNY AZAR MP No family history on file Level of Service:39773 [place] OFFICE/OUTPATIENT NEW MODERATE MDM 45-59 MINUTES Reason for Visit and Comments: Pain [136] - BWC Injury, meniscus tear injured 09/06/2022 [facility] ST - Assessments[facility] ST - Assessments [id number] #1.00CD:127 Normal [facility] Coding Summary.on 01-01-2023 Coding Summary. CD:[id number] W w+PGhlYWQ+VK7QKUMaR60 dlHXryC6uD9BWZMfQOeom SJRAMLlSOcHbdyOgZA9mp XNjZXJu IC8+LG4pESJiZnyvwRXve 9Z6wZX0D71hth2jOQdbzJ I4GEXzQvEmvyjgd2zyrKx 6IDcuNmluOyBt OHWjvA98DVW8eK33Ox47e CTsiKWez1gacMa1TdAiKL NnLJX8kEjvLPawn2XhDRQ vB77xpEEiv4W4 GMJkoHtgoWCwGrVtsYU6c F4zKPzkaqwrk7knnzroEg b7kf09rNSas6W9hPF8S9Q jwcY9LNQdnBAq TklvwCZErV3cjdhkg3tiq gbrAoNnDKAhZPr3HMz9JJ OxnLmmKjViKK73IKM9CRC fzoJoS2XeNKOa cQzzCnR2f8O9Hi0FC7ERU haaI4LIHMRHXJovqFZ+PC 34el35R0AvUceeFgk3LJK rHHI8pVY9vW8q CRByYExvv3A9vQD0J0Xyz rNjiy4gx0vmEELmRUrhN2 8gxEVvq8M5MJTlsPD5XUY wbViePgZpxS52 Oyc+WJRzlRnnt6WyKxlqz 7ohd7dcuBt7OgktUMCnqh MlyXoiWQU9e6WgRu7uXBC klFC1iJH4cG0q JrSsRmT5NTsnX101BcDkd WTzZbazI40zK3CgyRR+PH RlZej4VDZmpQwaPX1eU0N hZGRpbmctbGVm jKxdGL2lEPQdfozaKENgu L2jPPItY8u2ViFeZsE2EE ppH7NtCQFmvbdkGp73zV2 dCfJiIiB4JHjh I0SgeaG8GYAkiUIeHWuxU TS4A97sr8O7IKCnYAZdCZ T7yPY1tH5buXhapdcryPD mdDsgdmVydGlj BRaaYJvyI640WSYhkWysT kNvZGluZyBEYXRlOiAgMD UvMDEvMjAyMzwvdGQ+PHR sSZQ5oNzrZJYc iIVnWJnuMy3ahVcxqFhtV X4sXGDeybilQBZqaC3nKQ BqjFLwtHyrRJ2uYQGmctm yc831ScCfGAJ5 JFIjpKGuA2GsnV1lUeRvO QGxLOKuY8MbdBHjBJpkU4 14XBrnAzT2RDTptjDtD6X sLWFsaWduOiB0 w8S1Go3Pw4IsmjgqK8Gln SCtNaJxOlzrBEx7O8PxMw wvdHI+JA29QUPrVQ79CUr 0IIS1lVsyXXru BBJrF6JruL8fBnLbOZCrQ GRkOyc+PHRhYmxlIHdpZH RoPScxMDAlJyBzdHlsZT0 wFf4sDZCzYEJt mKgtbIErFrGax3rkTNZtP GqhTH0raRtnO4RvsDI7BF Kzg7b9Wa19M37nP3BzqSV +MPXjoSP0qHX0 dY5jSsMaVuK1CMlkZ401I vUyxZIaHdiwp6rfn1sfhJ q9AyV7DBTsqhIziJdiVDD 8m9KkBr74U21m IHdpZHRoPSIxNSUiIHZhb Pilxx0bdK7dJl6+PGNvbC M7sDH0rI9sZqXzZjD9JXh eP264AxRprBTq Kmulp2bop2nozMy5HdXbS HFobvRagRccRXZ1p1ElNu 43K8UjhGeuu7DsUuo1gb5 4sBXvl7W8hIL6 Y1KaTBEhjvjktDKffXljM D1bHIFudwdaNQHnsR3rKI XjB2i9JsTqVrL1LWfsB3Z phvP1KRLhsNCs RGNymXNKpX4ajzamq3nvn zopYbDdWKUeWKt1OYi4EK AhsXuuUrUdJIJ1NyS8BTS 0rAKogJ5rrEsv djzozM5yQgw+GGD1rELlg UHPCD8wMdhhjCU+PHRkIH I6nOcsXMimBPWrnW7tYDN cK2o9KzYySwN7 XBkwU0KmjxF0YYBqqBXnU FTxxBQFmK3ukivty7sltq boAsMiLLRkYBq7AAn5ZZN saWduOiBsZWZ0 PpS9YMW3mZFzxM3enPzct yllpU4tXrb+QmlydGggRG D0RKt2B6KlDnf7AVLrsUr xHX1utGHbYYyp Cc9baMfvpOagXI6kSBUox lcuo631AeNix1lvNEIvoW IjFShbYTN2Q22zr4V4XLJ pHPQsSSG4jZB3 iA0ujIqzgecxjOTgeTiep aVfuGywXAtyEVotI557VB CbhNkhNbOoXAa2G4DsYlr 2NQVojSseJV7t uMHvZTgiNe6hlRmriVfvP I7hBMMrkibne080GeWcj2 faTSIooZYiOPitIYY8R95 eq4Z2SLAiGSYk YYV7fHV7gF5xsKomelwrb GVmdDsgdmVydGljYWwtYW yvL381VSLgfJzhNgYeiZm 2D9BvDue9XAPj zOrnNJ4dxOPlJRgeHi7jv IhodShnWA1mEEIzxayhi3 30XhKyj3zbJMDnpETfQSd bLDP3T63rz8X8 KVLvGOHiHJU4iKU3cS0zh GlnbjogbGVmdDsgdmVydG sbQDasUJmrG303DMAtyVx nPlBhdGllbnQg AVtaNGc2J3ZjLntgvAU+P R76JCPtTN06zBNniXZuo9 taaIe2UuEcQEEqRZP1pFx mZWqjq2JjJIPi F66uaKRwe4A3IIVjbSdnp HQuAaKyqMQ0iV0iOTdzar tgq9wzeqsaAibqe1fcdn4 9rF40L98fKFvk ZHRoPSIzMCUiIHZhbGlnb q4bfI3dHg6+YMSpeQC5oB L3mO6lRRLiCbV4XXzfX72 9InRvcCIvPjxj x2xrx8njoPx2FxX8NQCee oTxyWatOXP0n4TgYo64T3 9sIHdpZHRoPSIyMCUiIHZ shLmjxk4rxX3k Ii8+GEFbjRK2oQH0uL8zR jHvIeU9HFwfJ751HnGrpP HiXeikX28dL8QqxYK+PHR uKhr3DPDehRer KD9wbFBlUMejHl4sEAY5E pZfOnOdTZeyB3BcCRDwkp pyfyrqhMK1QCIoLXRboM6 1Kq9kiAssGYQv gCOKgI2eylwad5iisnhoZ wUcWSZdEZn8ILo2VYKzdF xzXqYuTWU8UdB0YPD9uYY nwO3wwHptzmpz gK3bE0DvZARqkihtWn48h O0pZzHhMyN3IHbcBbh+Sk 8XRURfPHNRJPIMPCMUEU8 7EX08xWNgw7V1 fCT2G1VnRODqhshbjwlsq QE3WPZsADQshF83cIFuSX mrXx5ru2T2w314FGIyOPN jiZ43Ky9ntKmc DBFqzLNNlP3gmkbdy3nty qwmEvDnPTEkBFa9FMy0BV WwbMdbYwFuGCZ2EnT7SWT 6vMBrzJ9fdDeh nqcloV6xHkk+MDcvMjcvM Fx6MgnkbED+SNTzQQC8iK zuRZvcIMZoqC9oNUHzT7n 5LbCmRyZ5FUeu P8GnCYTexoolIk35vI2lN oYoFbX1ZDvlS3UqeiV9RS HxmPRvWYsnXQR9K11qt8D 2KJMnGBKhVPU8 mSO6qB1pnOyxbglwaQCdg DsgdmVydGljYWwtYWxpZ2 62IOHraSedHdF6XSugXDU nEQ27GU48pQSw m1F7eSH4Q8DcPBIlsfwjp oreqBU3LDDrOLMhmA02jG WiNRncWj8jf9P2e292YIJ oCSGqlA98Ta9i kTjiVWSlvXTYqR5coaxdo 9byrgxvNfJtEXHmAZu6SK u6QMAifResBaExTHW4BsH 1FNF0cWAdrA3o hGpcuiviiB1dOhx+RmVtY RedNS08VK98kIKmu4L7sE Y0G9OeCSVrymceegqkaYG 5JDLiFDQtuY32 rMKnVXzbLl3wo1O3j936I NKuGVHcvG13Wi1ijQlgUF PooMXGfS3yaathk5doaoy gIzAwMDAwMDt0 IAm3QQPmnGivTbQaWWE1L bS6OUH7iLAymM9wfXplek svmU0kNxg+UmVjdXJyaW5 bFZ52KE16L6Ul PjwvdGFibGU+PHRhYmxlI HdpZHRoPScxMDAlJyBzdH hiUZ7wRd6kQCDwXYBjeAf nwKCnDoCgl9dn ZBVwRMylXZ0nzVslL7Mpl BG9GKFbl3n5Si28R00eW5 JvdXA+YPYlgYH6aTT2tH4 sIvXwHvW0ZObc I909BmKmdMTdNejla6wgr 0porJm6IfYrMRZyiuXzfG qoVHM4a7DyRs86F66iXSt pZHRoPSIyMCUi FKUnmAsabs7pnT7kPc6+P NBnnCU2aFT7dH6fYxNeEm Y9ROvgM842MbBxzFEwJuk vB36tQ1WtqTK+ BGPnNdo6TMMdlDiyJH3fg BEgDTptXp5nGOJ5KcHrZj MkSEwoS4MrPAJrjtyyhvf yhOF9EIFuYLQa lL73Ae3mqJqcQk7cZSFxS JD0XCHtoZDiJ5FwgK7yHn ByJBOkQXVjP4IotOVeCWi fG409DGvsCxA9 SEGeuhKpK6YzSDSbtCecE oA6s9L5Mx6YcQcuuSIcAF 2vJhGdPVk3K4OkRyv3OLB ciKokEI4xiNBt TFsoNr0gkCsppCdaUQ4zP QBdexqda692BqNwy7hmQL AcwSKuVDeaKRW8E22du4N 4IOUnIJXpUEN8 rVM5aJ2jqLhtjhgkiVRce DsgdmVydGljYWwtYWxpZ2 45WSXxnBcjLcISYmu2P9Q vYlp5PVLbnHfg PJ2hnLJcBOsdFf2mlTfqb EvaJU5tKUGngbqlw762Om Art0usHTIykUOsCUfvFIB 1E65co1D1NOKm CLLqNDE5pKT0hE5bbIiow jogbGVmdDsgdmVydGljYW jqSZwxZ798GVDoiAwdRw5 JOmr3H6LfMtg7 HBRxoKhtKF4neBJoWKxrO q9woSryiVudUR6oVZZjcp gqo211CuAex1ycZYBcfOL sNXsoMYZ4P36h j1C7KBFxHMErPTK1bCJ5g C7hvQjavvxylFEvfRdyer ClyHepBGyaHRnqX458AXJ vcDsnPlBheWVy OjwvdGQ+IO37ok26B2DbA zmbCwc6KDDpLYF1qXD6jJ 5xTLBeLPatn1F8dPD1W1Y qcgBwou4sf7tb YXBzZTog (more content not included)... Normal [facility] Consent for Treatmenton 12-03 Consent for Treatment [id number]#1 .00CD:127 Normal [facility] ST - Orderson 12-22-2022 ST - Orders [id number]# 1.00CD:127 Normal [facility] ST - Otheron 12-22-2022 ST - Other [id number]# 1.00CD:127 Normal [facility] Family Medicine Office/Clini c Noteon 12-09-2022 Family Medicine Office/Clinic Note Chief Complaint EST muffled hearing, ear pain and pressure HPI Staff Priyanka is a 27 year old female who presents today for muffled hearing, ear pain, and pressure. Symptoms started- 10 days ago Headache- yes Body aches-no Earache- present in left ear as well as a lot of pressure in her nasal passages and eyes Runny/stuffy nose- present Sore throat- not any longer Cough- present Scratchy tickly throat- tickly yes Chest symptoms- congested yes ARGUELLO- yes Orthopnea- sometimes per pt Lung Hx asthma, bronchitis, chest colds- pt has a family hx of asthma between her dad and sister but she has never been tested. Fever/chills- present GI symptoms- nausea and a little bit of diarrhea COVID exposure- no Pt was seen by Sunshine Mejias on 12/04/22 for cold symptoms and dx with acute nasopharyngitis. Pt was advised to f/u with PCP if sx were not improving. Pt was also advised she could use Mucinex DM and Claritin-D for symptom management. AILYN 7 score - 15 History of Present Illness I have reviewed and verified the staff HPI to be accurate for this encounter. Patient presents in office for concern of ongoing nasal congestion, nasal drainage, sinus pressure. Symptoms started 1-1/2 weeks ago. Had sore throat at start of illness but not currently. Has had cough. Denies fever or chills. Denies GI symptoms. Patient complains of left ear pain and pressure, muffled hearing. Patient was seen 5 days ago at 5 days of symptoms and diagnosed with upper respiratory infection. Has been using Mucinex DM and Claritin-D as discussed at that appointment without improvement of symptoms. Physical Exam Vitals & Measurements T: 36.9 ?C(Oral) HR: 83(Peripheral) BP: 114/70 SpO2: 99% HT: 63 in HT: 160 cm WT: 58.9 kg WT: 129.58 lb BMI: 23.01 General: Well developed, well nourished, in no acute distress Ears: Bilateral canals without erythema or edema. Bilateral TMs clear, pearly, intact, without erythema. Moderate clear effusion posterior to left TM. Nose: moderate nasal mucosa inflammation and edema mild yellow nasal drainage. Positive maxillary sinus tenderness with palpation Mouth: Mild pharyngeal erythema, no tonsillar enlargement, no exudate, no petechiae, no palatal inflammation Neck: no adenopathy Lungs: clear to auscultation throughout, no wheezing, no rales. No respiratory distress Cardio: regular rate and rhythm, no murmur Mental Status: Alert and oriented x3. Normal mood and affect Assessment/Plan 1. Acute maxillary sinusitis, unspecified (J01.00: Acute maxillary sinusitis, unspecified) Given duration of symptoms and exam, will cover for sinusitis with augmentin, probiotic supp encouraged. Finish entire course. Fluids/rest, PRN tylenol/ibuprofen for pain and/or fever encouraged. May use claritin D, flonase for symptomatic tx. Follow up with PCP if not improving over next 5-7 days with ATB or significantly worsening. Patient and/or parent verbalized understanding of treatment plan. Ordered: amoxicillin-clavulana te, = 1 tab(s), Oral, q12hr, X 7 day(s), # 14 tab(s), Refills(s) 0, Pharmacy: [facility], 160, cm, 12/09/22 13:50:00 EDT, Height/Length Dosing, 58.9, kg, 12/09/22 13:50:00 EDT, Weight Dosing Follow-up No qualifying data available Patient Education Sinusitis, Adult Problem List/Past Medical History Ongoing Acute medial meniscus tear of left knee Anxiety Chlamydia Episodic mood disorder. Lower back pain Posttraumatic stress disorder Suicide attempt Historical No qualifying data Procedure/Surgical History Dilation and curettage. Medications Augmentin 875 mg oral tablet, 1 tab(s), Oral, q12hr duloxetine 30 mg oral delayed release capsule traZODONE 50 mg Tab Allergies No Known Allergies Social History Alcohol - Low Risk, 12/09/2022 Current, 1-2 times per month, Household alcohol concerns: No., 12/09/2022 Substance Abuse - Low Risk, 12/09/2022 Current, Marijuana, 12/09/2022 Tobacco - Denies Tobacco Use, 06/01/2015 Never (less than 100 in lifetime) Tobacco Use:. Never Smokeless Tobacco Use:. Household tobacco concerns: No., 12/09/2022 Never (less than 100 in lifetime) Tobacco Use:. Never Smokeless Tobacco Use:., 12/04/2022 Family History Asthma: Father and Sister. Ovarian cancer: Aunt. Immunizations Vaccine Date Status Comments influenza virus vaccine, inactivated - Not Given Postpone due to refusal SARS-CoV-2 mRNA (tozinameran 5y-11y) vac - Not Given Postpone due to refusal SARS-CoV-2 (COVID-19) Ad26 vaccine - Not Given Postpone due to refusal influenza, whole 07/29/2013 Recorded diphtheria/pertussis, acel/tetanus adult 02/12/2009 Recorded meningococcal conjugate vaccine 02/12/2009 Recorded human papillomavirus vaccine 02/12/2009 Recorded influenza, whole 08/13/2008 Recorded hepatitis A adult vaccine 08/13/2008 Recorded Hep A, unspecified formulation 03/20/2007 Recorded poliovirus vaccine, inactivated 04/01/2002 Recorded measles/mumps/rubella virus vacci (more content not included)... Normal [facility] Comment on above: Result Comment: Elec tronically Signed By: TRINITY TODD, Katherin Murphy\.br\Date and Time Signed: 12/09/22 14:16 EDT Patient Educationon 12-10-19 Patient Education Infectious Disease Sinusitis, Adult Sinusitis is inflammation of your sinuses. Sinuses are hollow spaces in the bones around your face. Your sinuses are located: ? Around your eyes. ? In the middle of your forehead. ? Behind your nose. ? In your cheekbones. Mucus normally drains out of your sinuses. When your nasal tissues become inflamed or swollen, mucus can become trapped or blocked. This allows bacteria, viruses, and fungi to grow, which leads to infection. Most infections of the sinuses are caused by a virus. Sinusitis can develop quickly. It can last for up to 4 weeks (acute) or for more than 12 weeks (chronic). Sinusitis often develops after a cold. What are the causes? This condition is caused by anything that creates swelling in the sinuses or stops mucus from draining. This includes: ? Allergies. ? Asthma. ? Infection from bacteria or viruses. ? Deformities or blockages in your nose or sinuses. ? Abnormal growths in the nose (nasal polyps). ? Pollutants, such as chemicals or irritants in the air. ? Infection from fungi (rare). What increases the risk? You are more likely to develop this condition if you: ? Have a weak body defense system (immune system). ? Do a lot of swimming or diving. ? Overuse nasal sprays. ? Smoke. What are the signs or symptoms? The main symptoms of this condition are pain and a feeling of pressure around the affected sinuses. Other symptoms include: ? Stuffy nose or congestion. ? Thick drainage from your nose. ? Swelling and warmth over the affected sinuses. ? Headache. ? Upper toothache. ? A cough that may get worse at night. ? Extra mucus that collects in the throat or the back of the nose (postnasal drip). ? Decreased sense of smell and taste. ? Fatigue. ? A fever. ? Sore throat. ? Bad breath. How is this diagnosed? This condition is diagnosed based on: ? Your symptoms. ? Your medical history. ? A physical exam. ? Tests to find out if your condition is acute or chronic. This may include: ? Checking your nose for nasal polyps. ? Viewing your sinuses using a device that has a light (endoscope). ? Testing for allergies or bacteria. ? Imaging tests, such as an MRI or CT scan. In rare cases, a bone biopsy may be done to rule out more serious types of fungal sinus disease. How is this treated? Treatment for sinusitis depends on the cause and whether your condition is chronic or acute. ? If caused by a virus, your symptoms should go away on their own within 10 days. You may be given medicines to relieve symptoms. They include: ? Medicines that shrink swollen nasal passages (topical intranasal decongestants). ? Medicines that treat allergies (antihistamines). ? A spray that eases inflammation of the nostrils (topical intranasal corticosteroids). ? Rinses that help get rid of thick mucus in your nose (nasal saline washes). ? If caused by bacteria, your health care provider may recommend waiting to see if your symptoms improve. Most bacterial infections will get better without antibiotic medicine. You may be given antibiotics if you have: ? A severe infection. ? A weak immune system. ? If caused by narrow nasal passages or nasal polyps, you may need to have surgery. Follow these instructions at home: Medicines ? Take, use, or apply rxgm-ybo-ybxhygt and prescription medicines only as told by your health care provider. These may include nasal sprays. ? If you were prescribed an antibiotic medicine, take it as told by your health care provider. Do not stop taking the antibiotic even if you start to feel better. Hydrate and humidify ? Drink enough fluid to keep your urine pale yellow. Staying hydrated will help to thin your mucus. ? Use a cool mist humidifier to keep the humidity level in your home above 50%. ? Inhale steam for 10?15 minutes, 3?4 times a day, or as told by your health care provider. You can do this in the bathroom while a hot shower is running. ? Limit your exposure to cool or dry air. Rest ? Rest as much as possible. ? Sleep with your head raised (elevated). ? Make sure you get enough sleep each night. General instructions ? Apply a warm, moist washcloth to your face 3?4 times a day or as told by your health care provider. This will help with discomfort. ? Wash your hands often with soap and water to reduce your exposure to germs. If soap and water are not available, use hand general inspector. ? Do not smoke. Avoid being around people who are smoking (secondhand smoke). ? Keep all follow-up visits as told by your health care provider. This is important. Contact a health care provider if: ? You have a fever. ? Your symptoms get worse. ? Your symptoms do not improve within 10 days. Get help right away if: ? You have a severe headache. ? You have persistent vomiting. ? You have severe pain or swell (more content not included)... Normal [facility] Provider Letteron 12-09-2022 Provider Letter December 09, 2022 PRIYANKA HARDIN [address] [place] [address] PRIYANKA HARDIN 1995 To Whom It May Concern, Please excuse above patient from work. Date of Illness:12-09-2022 May Return to Work On:next scheduled work day Restrictions: _ Comments: _ Sincerely, [facility] [address] [place] [address], [place] [address] [facility] Family Medicine Office/Clini c Noteon 12-04-2022 Family Medicine Office/Clinic Note Chief Complaint EST cough, sore throat, headache, sinus congestion, diarrhea, chills HPI Staff Pt 27 yo female presents with sore throat, cough, eye/ear pain, drainage Onset- , x5 days. Headache- yes pressure Earache- yes both muffled Sinus Congestion- yes Rhinorrhea- yes Sore Throat- yes, a lot of PND Cough- yes productive wheezing- no Dyspnea on exertion- yes due to coughing spells Lung Hx (asthma, recurring bronchitis/chest colds, COPD)- no Fevers/chills- no chills GI symptoms- yes diarrhea 1-2x daily appetite decreased tolerating fluids Treatment- dayquil/nyquil, cough drops History of Present Illness I have reviewed and verified the staff HPI to be accurate for this encounter. Physical Exam Vitals & Measurements T: 36.8 ?C(Oral) HR: 63(Peripheral) BP: 100/74 SpO2: 99% HT: 63 in HT: 160 cm WT: 59.6 kg WT: 131.12 lb BMI: 23.28 General: Well developed, well nourished, in no acute distress Ears: not assessed Nose: not addressed Mouth: not assessed Neck: not assessed Lungs: not assessed Cardio: not assessed Abdomen: not assessed Mental Status: Alert and oriented x3. Normal mood and affect Assessment/Plan 1. Acute nasopharyngitis (J00: Acute nasopharyngitis [common cold]) Rapid strep test negative in office. Discussed exam and hx are consistent with viral illness. Advised of typical duration. Discussed antibiotics unfortunately do not treat viral illnesses, it will take time to run course- usually 7-14 days. Fluids/rest encouraged, PRN tylenol/ibuprofen for any pain. May use Mucinex DM and Claritin-D for symptomatic tx. Follow up with PCP if not improving over next 7-10 days or significantly worsening symptoms. Patient verbalized understanding of tx plan. Sore throat (J02.9: Acute pharyngitis, unspecified) Ordered: Rapid Strep POC 60084 Follow-up With When Contact Information Shannon Glez [place] [address]- Additional Instructions: Patient Education Antibiotic Resistance Upper Respiratory Infection, Adult Problem List/Past Medical History Ongoing Anxiety Chlamydia Episodic mood disorder. Lower back pain None Posttraumatic stress disorder Suicide attempt Historical No qualifying data Procedure/Surgical History Dilation and curettage. Medications duloxetine 30 mg oral delayed release capsule traZODONE 50 mg Tab Allergies No Known Allergies Social History Alcohol - Denies Alcohol Use, 06/01/2015 Current, 1-2 times per month, 11/08/2020 Substance Abuse - Denies Substance Abuse, 06/01/2015 Marijuana, 06/29/2022 Tobacco - Denies Tobacco Use, 06/01/2015 Never (less than 100 in lifetime) Tobacco Use:. Never Smokeless Tobacco Use:., 12/04/2022 Never (less than 100 in lifetime) Tobacco Use:. Never Smokeless Tobacco Use:., 12/27/2021 Family History Ovarian cancer: Aunt. Immunizations Vaccine Date Status Comments influenza virus vaccine, inactivated - Not Given Postpone due to refusal SARS-CoV-2 mRNA (tozinameran 5y-11y) vac - Not Given Postpone due to refusal SARS-CoV-2 (COVID-19) Ad26 vaccine - Not Given Postpone due to refusal influenza, whole 07/29/2013 Recorded diphtheria/pertussis, acel/tetanus adult 02/12/2009 Recorded meningococcal conjugate vaccine 02/12/2009 Recorded human papillomavirus vaccine 02/12/2009 Recorded influenza, whole 08/13/2008 Recorded hepatitis A adult vaccine 08/13/2008 Recorded Hep A, unspecified formulation 03/20/2007 Recorded poliovirus vaccine, inactivated 04/01/2002 Recorded measles/mumps/rubella virus vaccine 04/01/2002 Recorded DTaP, unspecified formulation 04/01/2002 Recorded varicella virus vaccine 03/02/2000 Recorded poliovirus vaccine, inactivated 03/02/2000 Recorded measles/mumps/rubella virus vaccine 03/02/2000 Recorded haemophilus b conj (PRP-OMP) vaccine 03/02/2000 Recorded DTaP, unspecified formulation 03/02/2000 Recorded hepatitis B pediatric vaccine 1997 Recorded haemophilus b conj (PRP-OMP) vaccine 1997 Recorded DTaP, unspecified formulation 1997 Recorded poliovirus vaccine, inactivated 1997 Recorded Hib, unspecified formulation 1997 Recorded DTaP, unspecified formulation 1997 Recorded poliovirus vaccine, inactivated 1997 Recorded hepatitis B pediatric vaccine 1997 Recorded haemophilus b conj (PRP-OMP) vaccine 1997 Recorded DTaP, unspecified formulation 1997 Recorded hepatitis B adult vaccine 1997 Recorded Lab Results Ambulatory Point of Care Results Rapid Strep POC Result: Negative (12/04/22 12:18:00) SUBMITTED BEFORE PE DONE General: Well developed, well nourished, in no acute distress Ears: No deformity or lesion of external ear. Canals and TM appear normal bilaterally. TM?s intact, not inflamed, with normal light reflex. Hearing grossly normal to conversational speech Nose: mild nasal mucosa inflammation and edema mild discomfort o (more content not included)... Normal [facility] Comment on above: Result Comment: Elec tronically Signed By: EFRA Mejias APRN, [place] X\.br\Date and Time Signed: 12/04/22 12:31 EDT Patient Educationon 12-05-19 Patient Education Infectious Disease Antibiotic Resistance Antibiotics are medicines used to treat infections that are caused by bacteria. Antibiotic resistance means that the medicine no longer works against the bacteria. Resistance can develop if you use antibiotics the wrong way. When antibiotics are given in response to illnesses caused by viruses, like colds or the flu, many normal bacteria in the body are killed. Some bacteria that are not killed may develop resistance to the antibiotic. These bacteria may grow and cause infections that are resistant to some other antibiotics. If this happens, the bacteria can continue to grow and cause infection. What are the causes? Antibiotic resistance happens when bacteria come into contact with an antibiotic over and over again. Over time, the bacteria become resistant to the antibiotic. What increases the risk? This condition is more likely to develop in people who: ? Are repeatedly given antibiotics to treat viral infections. ? Do not take their antibiotic medicine as prescribed, such as not finishing all of the medicine. ? Need to take antibiotics often because of a long-term medical condition. ? Take medicines that weaken their body's defense system (immune system). ? Have surgery. ? Are elderly. ? Need a procedure that replaces some of the work that healthy kidneys do (dialysis). ? Have an organ transplant. ? Are being treated for cancer. ? Have a type of infection that is more likely to be caused by resistant bacteria. These include certain: ? Skin infections. ? STIs (sexually transmitted infections). ? Respiratory infections. ? Infections of the lining of the brain and spinal cord (meningitis). ? Gastrointestinal infections. ? Eat foods from animals that were treated with antibiotics. Antibiotic-resistant bacteria can be passed through the food. ? Live with or care for someone with an antibiotic-resistant infection. ? Are hospitalized for a long time?or live in a long-term care facility. What are the signs or symptoms? The main symptom of this condition is having an infection that does not improve with normal treatment. The specific signs and symptoms that you have will depend on the type of infection, but they may include: ? A fever. ? Warmth, redness, and tenderness around a wound or incision. ? Brown, yellow, or green drainage from a wound or incision. ? A bad smell coming from a wound or incision. ? Nausea, vomiting, and abdominal pain. How is this diagnosed? This condition may be diagnosed by: ? Your medical history. Your health care provider may suspect antibiotic resistance if your condition does not improve after you have been treated for an infection. ? You may also have other tests, including: ? Analysis of a fluid or stool sample. This is done to identify bacteria under a microscope and determine what type of antibiotic will work against them (culture and sensitivity). ? Other blood tests and imaging tests. These are done to check if your infection has spread or has become more serious. How is this treated? Treatment for this condition depends on the nature of the specific infection. ? Treatment may include oral antibiotics that kill more types of bacteria (broad spectrum). ? Serious antibiotic-resistant infections may need to be treated in the hospital. In severe cases, this may include: ? Surgery to remove infected or damaged tissue. ? Antibiotics or other medicines given through an IV tube. Follow these instructions at home: Taking antibiotics correctly ? Understand when antibiotics are needed and when they are not needed. ? Do not ask for an antibiotic prescription if you have been diagnosed with a viral illness. Antibiotic medicine will not make your illness go away faster. Common viral illnesses include an ear infection, a sinus infection, the stomach flu, or bronchitis. ? Do not take antibiotics that are left over from a previous prescription. ? Do not take antibiotics that were prescribed for someone else. ? If you are prescribed an antibiotic: ? Take it exactly as told by your health care provider. Do not stop taking the medicine even if you start to feel better. ? If you have been taking it for more than 10 days, ask your health care provider or pharmacist if you should keep taking it. ? Do not save unused antibiotics to use at a later date. Get rid of unused medicine as told by your health care provider or pharmacist. Preventing infection ? If you have an infection, avoid close contact with people around you. ? Avoid using personal items that are used by other people, such as towels, razors, or bedding. ? Regularly disinfect doorknobs, food preparation surfaces, and bathrooms with bleach-containing products or solutions. ? Wash your hands with soap and water: ? After using the bathroom. ? Before and after caring for a wound or incision. ? Before and after (more content not included)... [facility] Patient Letter FTon 2022 Patient Letter [facility] December 04, 2022 PRIYANKA HARDIN [address] [place] [id number] Please excuse PRIYANKA HARDIN from work . Date and/or Time of Absence: From: 12/04/22 To: 12/05/22 Restrictions: None Comments: Please excuse due to an acute illness. Provider Signature: Sunshine Mejias APRN, PRODUCTION SOUND MIXER-C Nurse Practitioner [address] [place] [address] [facility] CNOVon 11-13-2022 [facility] Office Visit (LOORRM ) PRIYANKA HARDIN ([id number]) 1995 F Date Time Provider Department 11/13/22 9:30 AM AUDREY MORGAN During your visit today, we recorded the following information about you: Weight Height 59 kg 1.6 m Allergies As of Date: 11/13/2022 (Not on File) Date Reviewed: 11/13/2022 Reviewed by: Monie Salmon MA - Fully Assessed Reason for Visit: New [[id number]] Primary Visit Diagnosis:Acute pain of left knee [M25.562] Other Visit Diagnosis:Internal derangement of left knee [M23.92] Problem List As Of Date: 11/13/2022 (None) Encounter Status:Closed by AUDREY MORGAN II on 11/14/22 Normal [facility] XR KNEE 4V AP/PA BOTH+LAT/ME R LTon 11-13-2022 XR KNEE 4V AP/PA BOTH+LAT/LETHA LT * * *Final Report* * * DATE OF EXAM: Nov 13 2022 9:44AM LZX 5202 - XR KNEE 4V AP/PA BOTH+LAT/LETHA LT / PROCEDURE REASON: Internal derangement of left knee * * * * Physician Interpretation * * * * EXAMINATION / TECHNIQUE: XR KNEE 4V AP/PA BOTH+LAT/LETHA LT PATIENT/TECHNOLOGIST PROVIDED HISTORY: Recent fall on steps, unable to fully straighten the knee CLINICAL INFORMATION ( PROVIDED BY ORDERING CLINICIAN) : Internal derangement of left knee COMPARISON: None RESULT: Left knee: Medial Compartment: Subjective: No degenerative changes. KL Grade 0: No radiographic features of OA are present. Lateral Compartment: Subjective: No degenerative changes. KL Grade 0: No radiographic features of OA are present. Patellofemoral Compartment: Subjective: No degenerative changes. KL Grade 0: No radiographic features of OA are present. Other: No acute fracture or dislocation. No joint effusion. IMPRESSION: Normal radiographs. 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 TECHNIQUE: A complete multi-planar MRI was performed. FINDINGS: MEDIAL COMPARTMENT MEDIAL MENISCUS: No visible tear or significant degeneration. CARTILAGE: No visible defect. BONES: 3.3 x 1.1 x 3.2 cm area of bone edema in the lateral femoral condyle MCL AND MEDIAL CAPSULE: Normal medial collateral ligament and medial capsule. LATERAL COMPARTMENT LATERAL MENISCUS: Oblique tear anterior horn extending to the inferior articular surface best seen on sagittal image 8. CARTILAGE: No visible defect. BONES: No marrow pathology, fracture, or significant arthropathy. LCL/POSTEROLAT COMPLEX: Normal lateral collateral ligament, fascicles, lateral capsule and ligaments. ANTERIOR COMPARTMENT PATELLA: 0.8 cm area of bone edema inferior medial patella CARTILAGE: No visible defect. TENDONS: Normal. EFFUSION: Small joint effusion. ACL: Increased signal distal insertion consistent with stranding PCL: Normal appearing ligament. MENISCOFEMORAL: Normal meniscofemoral ligaments. OTHER: Negative. IMPRESSION: Bone edema pattern consistent with transient lateral patellar subluxation Small joint effusion Oblique tear anterior horn of the lateral meniscus extending to the inferior articular surface Electronically authenticated by: RONNY NARANJO Date: 2022-10-11 19:17 Normal [facility] ED Noteon 07-12-2022 ED Note [id number]# 1.00CD:127 Normal [facility] Comment on above: Other Comment: WRONG FOLDER Outside Recordson 07-12-2022 Outside Records [id number]# 1.00CD:127 Normal [facility] Coding Summary.on 07-03-2022 Coding Summary. CD:[id number] G h0bWw+PGhlYWQ+LC7RLKB uF56ttEWjtN4DO2pYXQ5O CLRPXQKQMS7ZNZ4rkWC4K WumB7YfwaBj VnnppDYvAY50VLv6QRB3k BiwYCmwrM4aiVSfE4s1Gu RcZI74zX70JFanJSGaRcJ 3LjZpbjsgbWFy Q4ecXgTrsKPfWza+PHRhY mxlIHdpZHRoPScxMDAlJy YnkBfxOK2tZg4aONNzHPI vbGxhcHNlOiBj p3zfZJRvJVotQH3naAvxH 0HksXY5SOVou6n7Mx93iR I+LUJeUEW1fUtrNOvgd26 3XmHuo8miXLH7 zVXkOYotOLM1X96sv0T0N BSuDMBzDHY0uEE3qW0cjH yppsfxG2EgmHWnLhZ1KLB 8jSAwqV8ybDwh dwmdlV1tXhw+P65JMD3HA ZOPJF2XUzq8X8ZuSyoeuQ I+QU21SUYqVE83dGLysMK sd6kvmKe7NeAu JGEbTWJ2sIavIUwcf4TfZ IEaX23ziWWym1G5EOLuhM kckLQvDxKvjKS2yD2rVOo ksbqmi6azesof Eyjdi6ruzo03tG36V09iP QwkQLPbBAD3FKTcRLZqoH cqrg8veA3aAa6+UTodf7s ry5sgaXx3ZhMk PUFjdaTorEfsDMZ9p7IuD v17G7CfjKaan3IqOiq4ur 77xNYlo0Z5fKH0SDslQQP uaR6pTGviYpS2 VUOeCvWfxG40nZNoBTsiP j6gjHndmAbpJU3fSAUjsf xmVKScfZ4hRMUciCRvaNe wWL3tRUOygxmy w710MaTsNNL2CCEzsRRgK 5ZsxQ4gCbNaZBJvGOGpV6 ShsZYvBSxzL906RUgkIzV 6ECAtexVcX4At PAAseUsoHwH3q2D4Rw3Dm 1UktaqySGP7WZjuYJZtZg GsSlCsRwQ5N9OtYwv1ZVK aiMxyBE2tU8De BVNlyghwohvzlVQ3TBRmQ NBfnD51gTHiSHbkMh9vo1 D6x731RIBlQVLwtB53Zt4 udDogMTBwdCBU vM7scblhr7aukcvoXuElB UBfXLk5JDp7CWPpzNihQl NaRHL3UsR0SFY2qXVioU2 jaTamhiqvwE5w Oyc+E00hlN9yAWN7FPH6j hdoTQEimdMmHT70EU71H0 RyPjwvdGFibGU+PGRpdiB hoWrnJW9tMmPt c5uhs0OgQUwbV1BxQLTaD NmzFkl1TFCtZZZ4aBA4tP 8nNPLnTChgh5R3jXA7N8D wanBnxg0kc9kp VZFtYLlaA18smAMbf6L5P NCxyCR6EKQvgJjcAgLznZ 93Oyc+PZJpzGotg3UfPep jf2nxb2iwvWr4 MbHrPABytnRgaFluLXJ8r 6DvHn41B17eOIncEWKuBW AyIQQaNCKkpEnxvl5qlR3 wIi8+PGNvbCB3 zHY0dX8wKDIoAlI5ASomX 648MeYvmKFjLihpm2ufe5 greCc3BuXyOKEtskZzwGm yBQG7t0ScWp39 O15fFYmuBGUzDKPjXMDoU ZYeoIperh7xsJ0uLb2+PC 8hp3zmmc95aF35dCH+PHR sOXG1aBdePYdj QOCheB4xBFnkLkT8KNXwX hDvuX55qCMoUOnrWf9rsE gruNqpKM5zJBBrurrlg86 8RcWgb8gqFLEn nMBkYYleGWF9M74qe3V9A EHcENHaACY5fLF5fA3paM lnbjogbGVmdDsgdmVydGl xXZguFIizB645 IHRvcDsnPlBhdGllbnQgT uYbUGz5X6PfUkd7OTXugK rzFL5hfXBzWXbsZr3vaRb kxBqoII7cWTYv cwrsi418DsCyt0wdDTTtm KUpPUuhFGU6U56qt0Q6NO XeVFZgOYR3zEH1aD2tzQz nbjogbGVmdDsg gsAlzYwiRZlyBFcgA159W HRvcDsnPkJpcnRoIERhdG D2JO25NX65sNVgg4V9vKQ 2S0QhTHMaovvs sdnuvST6HSOsINAkmT58C q9xbAauHe7rYWAeLFD7BA OfrIWxZ5NlnS6uBlAnJGY uYOTmY6DnhVWx CPvmV073IXmvKjV8ZJHqj sKlS5RaKGYehIxuDuV4j1 [id number] vg0J3qKR9W5Rh QWJwoefwzsaatBA3JYIrN TUnaL13It6zfLhyUy6yHA HeCDV3SOCczDBlS3SkfE9 yOiAjMDAwMDAw K1KjwXHwTDhvF514YWavO cD4JFVzwsYlJ0FgJYZogF ozSgZ4x8Z9Hv7MDJh9KX5 9CA83gKJyx1R0 rMZ2B4OcDVLthyoflvqot DL4LVHxKHAtpR30Bu8zoV tpQo0cFXXzVAH9MNYhvIP zT7VsdH4hAcSf BMVxIERgX8YeoOXkEJtaS 383CAyyFsZ3XPGtcbUpZ6 NrPEFczFsvChW9m8C3Nh5 WQHLpHW72LID8 wIH1QF50GL64R9ZuOfcmb GFibGU+PHRhYmxlIHdpZH RoPScxMDAlJyBzdHlsZT0 nSl5tNUWkMVZu jPyugJYbIiEyl3ufMBLhB AchBE5eaImeZ8QqoFO1AQ Fso7z6Au21F40dL3BlxLT +NHKiwXM5bHG2 yV4eZvBxKqA9JSnsK589Q wOiuUKwTiifd8isy9fzyR m3XoE6IAHemxLymLysWNE 0t1RaXn96X37s IHdpZHRoPSIxNSUiIHZhb Oeamt8glQ8kTi8+PGNvbC F3dOW3bW6cLsCfVtK2BMp dU663BeDxxNXw Lxaaw3fdy6pbqUl0PbHnV LGopyUauAyoBUA3x7BxKu 13Q7BnvDnwv4UpThb7mw1 6eWJej0C3xCZ7 T8KqHBJcffljuYZkjEzfP Q9nNSRxwotaNZAnqN3xGX VlP1d9HiLjMsF8JOlgQ7D usiH8GKIjuOYx AGvkDMK9Y48gb1C1TRMkO SVoJWH6qRZ8dB9heAmohd ogbGVmdDsgdmVydGljYWw aZItaS663ZKVx oJdnSAEeqZ0zSVHluYWxe OsuUU8fVURevdgsNzvZOa YSDUJRRNdVO8DlERyrrKM +DJZpMUB9wPfa AJxdRTIuhE4rZDVuQ0k0U kLlIpG8EKzfP1HpTGFykr otBq14qC0lUeGiTtH5EBg eX8SzmpW9QOFm vNMaYXqiCGA4D16sv6P6U WOrEJPrMVU3wHQ0iS8buD lnbjogbGVmdDsgdmVydGl xVAevEEyzK992 IYJlnSngWyB4SzN3ZiN9F Hh6N4RtLkx0CZGyiBgjMQ 4ufVQzRJcjTf8dgIelqDn rOU4eZCLfvwii OKFpeG7bUXTitXSweXafA S9aHIKcfqqcl245QcInTY Q9PCAczPElZ2TqfX5cAcX cESPsYXYkI1Aq pTGiXUxzG556AWzwHvI8Q IPfndUxP2ZuTTMozUfaYx P6m2Y0Xs1gZQZEHUAzmld vdGQ+PHRkIHN0 mPlfELawSNOyrQ7dWOOaM 8p1EkFbAqN0SHvaT8FtPG MslhvvOs77bQ7dOhHoRpF 1TTonB0GzjoP4 APSdmYIwCRbdUDH3K63ab 7A6IUCfIBWwIIY8fTJ0hG 1hbGlnbjogbGVmdDsgdmV ydGljYWwtYWxp B396GPPfkWviObMpqGHqA TwvdGQ+SPCjUCO3hIyxIH heOOUelB1lBIVhD3e8ScS rIgJ9VEzxC6Xq DJHophttSz99cA1kNzRjF yO9ERnwE5ZmfmQ9TXWmaT QcMVmcNRK2K26qi9V6RCC kXIPpXVA9qYQ1 lE1svMojmcfasTHsfUkqs cNpmGknZBxqFAokS473AI DteJzxKrGtHWCuNV5ffVb vdGQ+IA39tw32 C0TdNxbnZsw7KLTvNDV4o XT5qP5hZQXjMPwit5U8lW D8G8JxxaVzmj2eg3seHFV bVScoF00gkOMk i8M2RHIspSN8EXXavFtiO lSvvD75Vyb+PGNvbGdyb3 CjPdwxr2ate4oszZf0KsO wJSIgdmFsaWdu EJZ8l3YoSj81K20iJNqdI HRoPSIzMCUiIHZhbGlnbj 5qzR8eFi0+LSGplGP0zDE 1cF1kVpNiYoB5 CYzpK338TqUtiEKjCaght 0srt6ivsGp3FvVzOXEkgk GfmPgcLBI3k7PfLh91U3J hbIbjv5QwIol8 fq98uMTnd5M7cZQ7I4ElN JYsxbeklTScfZtmVB3iUG VvhekwNDAklP2hHQXyP0e 7YuQjKnE1MXjl K3MglvW8SZKbtINwUNHvs ZFXyZ8vjtimu0jhrgtbUk FmHUIlCYq3IMd6CEWvzUi oUaUsKAP9EpP0 QWO7cISanZ7ibCqhgguqj G9wOyc+ZIb5j8gcnXIgUM 0bhQV2RN90DP24nORmi0C 3eOO2G6JgKOVg rssirxjcbHJ2CWLfFKCmb J04Nx8gaGppDk9gVKIhOG N2GUHngRRtY5IgrS0jAmM yGQEvKRLsQ2Im oWZvCKcdW065NKbjKdZ9X MNqaaBoY9KvWPHnoPxhPj Q7h0W0Lz7UCA47BS99LG1 4xDOvt2J2yCS7 U6DpXTBjguwqwbujaCO7Y IJkTEBoiD88Ii0uqMgdVa 7hIHScXPM8BBYvuJAxD7M vfB3fIpEuVJOg DGQwR5TooPFvVKhnM497P SekSbI0AAConoZxF9VrSG CknIhnLuP5f3M3Wm9TRh7 7JI04IC34aFZc d8I2nTZ7B5QzEPQqylxeu fpofQK4OQTsQFVwnQ31Nm 2pmWwrIq9yYVZsQRC2KEE jgOObQ1JpmO4t HeAxLXOuFOMoP7ZamDGxL YcnA656NFpdUqH4VFAvwe WnI9RhRRPquVktQgZ4y3M 9Dw8LHNjguwm6 P0FfYfpylRH+CP33FNIeR K16sSTonXJol3drkBr3Ia WmZOIxDJS9aOimSZoip5C dAGIdP81mhBAa c2U6 (more content not included)... Normal [facility] Cholesterol [Mass/volume] in Serum or PlasmaOrdered By: Kyle Pepe on 06-30-2022 Cholesterol [Mass/Vol] 135 mg/dL 140-200 [facility] Comment on above: Chol less than 200 m g/dl low riskChol 201-239 mg/dl borderline riskChol 240 mg/dl and greater high risk Cholesterol in LDL Calc [Mas s/Vol]Ordered By: Kyle Pepe on 06-30-2022 Cholesterol in LDL [Mass/Vol] 66 mg/dL 0-100 [facility] Comment on above: LDL ATP III CLASSIFI CATIONLDL less than 100 mg/dL OptimalLDL 100-129 mg/dL Near or above optimalLDL 130-159 mg/dL Borderline highLDL 160-189 mg/dL HighLDL greater than 189 mg/dL Very high Cholesterol in VLDL Calc [Ma ss/Vol]Ordered By: Kyle Pepe on 06-30-2022 Cholesterol in VLDL [Mass/Vol] 4 mg/dL [facility] ED Clinical Summaryon 2021 ED Clinical Summary [place] [id number] ED Clinical Summary Person Information Name: PRIYANKA HARDIN [facility] Age: 27 Years : 1995 Sex: Female Language: Cymro PCP: Shannon Glez MD Marital Status: Single Visit Id: Visit Reason: Suicidal ideation; SI Speciality: Acuity: 2 Enc Type: Emergency Med Service: Emergency Arrival: 06/29/2022 17:33:15 Discharge: 06/29/2022 23:40:23 LOS: 000 06:07 Checkin: 06/29/2022 17:33:15 Checkout: 06/29/2022 23:40:23 [facility] Type[facility] EVENTS: Event Name Event Status Request Date/Time Start Date/Time Complete Date/Time Arrive Complete 06/29/2022 17:33:15 06/29/2022 17:33:15 06/29/2022 17:33:15 Document Home Meds Request 06/29/2022 17:33:15 Triage Complete 06/29/2022 17:33:15 06/29/2022 17:40:51 06/29/2022 17:40:51 Bed Assign Complete 06/29/2022 17:33:48 06/29/2022 17:33:48 06/29/2022 17:33:48 Dr Exam Complete 06/29/2022 17:33:48 06/29/2022 17:39:41 06/29/2022 17:39:41 RN Exam Complete 06/29/2022 17:33:48 06/29/2022 17:46:34 06/29/2022 17:46:34 Registration Complete 06/29/2022 17:39:41 06/29/2022 18:34:54 06/29/2022 18:34:54 Dr Exam Complete 06/29/2022 17:44:19 06/29/2022 17:44:19 06/29/2022 17:44:19 Consult Request 06/29/2022 17:47:41 EKG Complete 06/29/2022 17:47:41 06/29/2022 19:06:29 Pending Labs Complete 06/29/2022 17:47:41 06/29/2022 18:53:47 Lab Complete 06/29/2022 17:47:41 06/29/2022 18:53:47 Urine Collect Complete 06/29/2022 17:47:41 06/29/2022 18:08:44 Patient Care Request 06/29/2022 17:47:41 Pending Labs Complete 06/29/2022 18:08:17 06/29/2022 18:08:17 06/29/2022 18:31:26 Lab Complete 06/29/2022 18:08:17 06/29/2022 18:08:17 06/29/2022 18:31:26 Pending Labs Complete 06/29/2022 18:13:49 06/29/2022 18:13:49 06/29/2022 18:13:55 Lab Complete 06/29/2022 18:13:49 06/29/2022 18:13:49 06/29/2022 18:13:55 Reg Complete Request 06/29/2022 18:34:54 Reg Bed Request Complete 06/29/2022 18:34:54 06/29/2022 18:34:54 06/29/2022 18:34:54 Pending Labs Complete 06/29/2022 18:46:06 06/29/2022 19:32:35 Lab Complete 06/29/2022 18:46:06 06/29/2022 19:32:35 Discharge Complete 06/29/2022 23:43:15 06/29/2022 23:43:15 06/29/2022 23:43:15 Transfer Complete 06/29/2022 23:43:15 06/29/2022 23:43:15 06/29/2022 23:43:15 ADDRESS: [address] [facility] [id number] PHYS DOC NOTES: MEDICAL INFORMATION: Prescriptions Given: Medications to Continue with No Changes Other Medications diphenhydrAMINE (Benadryl 25 mg Cap) 1-2 cap(s) By Mouth 3 times a day as needed as needed for itching. Refills: 0. famotidine (Pepcid 20 mg Tab) 1 Tablets By Mouth 2 times a day. Refills: 0. PATIENT EDUCATION INFORMATION: Instructions: Follow up: DIAGNOSIS: 1:Suicidal ideation Normal [facility] ED Patient Education Noteon 06-30-2022 ED Patient Education Note Normal [facility] ED Patient Summaryon 022 ED Patient Summary [address] [address] Patient Discharge Instructions Person Information Name: PRIYANKA HARDIN Age: 27 Years Arrival Date: 06/29/2022 17:33:15 Discharge Diagnosis: 1:Suicidal ideation Primary Care Physician: Shannon Glez MD Provider Information Primary Provider: Sai Vasquez DO Advanced Screed Person:Arnoldo Wellington PA-C The exam and treatment you received in the Emergency Department were for an urgent problem and are not intended as complete care. It is important that you follow up with a doctor, nurse practitioner, or physician?s finance assistant for ongoing care. If your symptoms become worse or you do not improve as expected and you are unable to reach your usual health care provider, you should return to the Emergency Department. We are available 24 hours a day. PRIYANKA HARDIN has been given the following list of patient education materials, prescriptions and follow-up instructions: Follow-up Instructions: In the event that this physician does not participate in your insurance network, please consult with your insurance company to find a nearby participating provider. Patient Education Materials: A MESSAGE TO ALL PATIENTS REGARDING OPIOIDS PRESCRIPTION OPIOIDS: WHAT YOU NEED TO KNOW Prescription opioids can be used to help relieve rsbghpgz-nc-usqsms pain and are often prescribed following a surgery or injury, or for certain health conditions. These medications can be an important part of the treatment but also come with serious risks. It is important to work with your healthcare provider to make sure you are getting the safest, most effective care. WHAT ARE THE RISKS AND SIDE EFFECTS OF OPIOID USE? Prescription opioids carry serious risks of addiction and overdose, especially with prolonged use. An opioid overdose, often marked by slowed breathing, can cause sudden . The use of prescription opioids can have a number of side effects as well, even when taken as directed: ? Tolerance?meaning you might need to take more of the medication for the same pain relief ? Physical dependence?meaning you have symptoms of withdrawal when a medication is stopped ? Increased sensitivity to pain ? Constipation ? Nausea, vomiting, and dry mouth ? Sleepiness and dizziness ? Confusion ? Depression ? Low levels of testosterone that can result in lower sex drive, energy, and strength ? Itching and sweating RISKS ARE GREATER WITH: ? History of drug misuse, substance use disorder, or overdose ? Mental health conditions (such as depression or anxiety) ? Sleep apnea ? Older age (65 years and older) ? Avoid alcohol while taking prescription opioids. Also, unless specifically advised by your health care provider, medications to avoid include: ? Benzodiazepines (such as Xanax or Valium) ? Muscle relaxants (such as Soma or Flexeril) ? Hypnotics (such as Ambien or Lunesta) ? Other prescription opioids KNOW YOUR OPTIONS Talk to your health care provider about ways to manage your pain that don?t involve prescription opioids. Some of these options may actually work better and have fewer risks and side effects. Options may include: ? Pain relievers such as acetaminophen, ibuprofen, and naproxen ? Some medication that are also used for depression or seizures ? Physical therapy and exercise ? Cognitive behavioral therapy, a psychological, goal-directed approach, in which patients learn how to modify physical, behavioral, and emotional triggers of pain and stress. IF YOU ARE PRESCRIBED OPIOIDS FOR PAIN: ? Never take opioids in greater amounts or more often than prescribed. ? Follow up with your primary health care provider. o Work together to create a plan on how to manage your pain. o Talk about ways to help manage your pain that don?t involve prescription opioids. o Talk about any and all concerns and side effects. ? Help prevent misuse and abuse o Never sell or share prescription opioids. o Never use another person?s prescription opioids. ? Store prescription opioids in a secure place and out of reach of others (this may include visitors, children, friends, and family). ? Safely dispose of unused prescription opioids: Find your community drug take-back program or your pharmacy mail-back program, or flush them down the toilet, following guidance from the Food and Drug Administration (www.fda.gov/Drugs/Re sourcesForYou). ? Visit www.cdc.gov/drugoverd ose to learn about the risks of opioids abuse and overdose. ? If you believe you may be struggling with addiction, tell your health primary care nurse practitioner and ask for guidance or call [facility]?S netFactor Helpline at 1-639-132-CTHJ. n Source: US Department of Health and Human Services/Center for Disease Control & Prevention [facility] Medications Given: Medication Dose Rou (more content not included)... Normal [facility] EMS Documentationon 06-30-20 EMS Documentation [id number]#1 .00CD:127 Normal [facility] Lipid Panelon 06-30-2022 Cholesterol [Mass/Vol] 135 mg/dL Low 140-200 [facility] Comment on above: Result Comment: Chol less than 200 mg/dl low risk Chol 201-239 mg/dl borderline risk Chol 240 mg/dl and greater high risk Performed By: #### T SH3 wRFLX, [id number], LIPID #### [facility] [address] [place] [id number] [place] Cholesterol in HDL [Mass/Vol] 65 mg/dL Normal 35-85 [facility] Comment on above: Result Comment: HDL CHOL ATP-III CLASSIFICATION Cardiovascular Risk HDL > or equal to 60 mg/dL LOW HDL < 40 mg/dL HIGH Performed By: #### T SH3 wRFLX, [id number], LIPID #### [facility] [address] [place] [id number] [facility] Cholesterol.total/Choles terol in HDL [Mass ratio] 2.1 {ratio} Normal <5.0 [facility] Comment on above: Performed By: #### T SH3 wRFLX, [id number], LIPID #### [facility] [address] LDL Cholesterol,Calculated 66 mg/dL Normal 0-100 [facility] Comment on above: Result Comment: LDL ATP III CLASSIFICATION LDL less than 100 mg/dL Optimal LDL 100-129 mg/dL Near or above optimal LDL 130-159 mg/dL Borderline high LDL 160-189 mg/dL High LDL greater than 189 mg/dL Very high Performed By: #### T SH3 wRFLX, [id number], LIPID #### [facility] [address] Triglyceride w/Reflex 20 mg/dL Low 35-149 [facility] Comment on above: Result Comment: TRIG ATP III CLASSIFICATION TRIG less than 150 mg/dL Normal TRIG 150-199 mg/dL Borderline high TRIG 200-500 mg/dL High TRIG greater than 500 mg/dL Very high Standard traceable to the Center for Disease Conrtrol and Prevention (CDC) test method. Performed By: #### T SH3 wRFLX, [id number], LIPID #### [facility] [address] VLDL CHOLESTEROL 4 mg/dL Normal [facility] Comment on above: Performed By: #### T SH3 wRFLX, [id number], LIPID #### [facility] [address] No Panel InformationOrdered By: Kyle Pepe on 06-30-2022 25-Hydroxy Vitamin D Total 22.3 ng/mL 30-100 [facility] Comment on above: VITAMIN D STATUS 25( [place])VITAMIN D RANGE (ng/mL) Deficient <20 Insufficient 20 to <30Sufficient 30 to 100Reference: Constantino MF,Claudio NC, Martin IBRAHIM, et al. Evaluation,treatment, and prevention of vitamin D deficiency; an Endocrine Society clinical practice guideline. JCEM. 2010; 96(7):1911-30. Serum or plasma high density lipoprotein (HDL) cholesterol measurementOrdered By: Kyle Pepe on 06-30-2022 Cholesterol in HDL [Mass/Vol] 65 mg/dL 35-85 [facility] Comment on above: HDL CHOL ATP-III CLA SSIFICATION Cardiovascular RiskHDL > or equal to 60 mg/dL LOWHDL < 40 mg/dL HIGH Serum or plasma total choles terol/high density lipoprotein (HDL) cholesterol mass ratOrdered By: Kyle Pepe on 06-30-2022 Cholesterol.total/Choles terol in HDL [Mass ratio] 2.1 {ratio} <5.0 [facility] TSH DL <= 0.005 mIU/L QnOrde red By: Kyle Pepe on 06-30-2022 TSH Qn 1.66 m[IU]/L 0.45-5.33 [facility] Thyroid Stim Hormone w/Rflxo n 06-30-2022 Thyroid Stim Hormone w/Rflx 1.66 u[iU]/mL Normal 0.45-5.33 [facility] Comment on above: Performed By: #### T SH3 wRFLX, [id number], LIPID #### [address] Transfer Documentson 022 Transfer Documents [id number]# 1.00CD:127 Normal [facility] Triglyceride [Mass/volume] i n Serum or PlasmaOrdered By: Kyle Pepe on 06-30-2022 Triglyceride [Mass/Vol] 20 mg/dL 35-149 [facility] Comment on above: TRIG ATP III CLASSIF ICATIONTRIG less than 150 mg/dL NormalTRIG 150-199 mg/dL Borderline highTRIG 200-500 mg/dL High TRIG greater than 500 mg/dL Very highStandard traceable to the Center for Disease Conrtrol and Prevention (CDC) test method. Valuables Checkliston 2021 Valuables Checklist [id number]# 1.00CD:127 Normal [facility] Vitamin D 25 Hydroxy Totalon 06-30-2022 Vitamin D 25 Hydroxy Total 22.3 ng/mL Low 30-100 [facility] Comment on above: Result Comment: NOEMÍ MIN D STATUS 25([place])VITAMIN D RANGE (ng/mL) Deficient <20 Insufficient 20 to <30 Sufficient 30 to 100 Reference: Constantino MF,Claudio NC, Martin IBRAHIM, et al. Evaluation,treatment, and prevention of vitamin D deficiency; an Endocrine Society clinical practice guideline. JCEM. 2010; 96(7):1911-30. PERFORMED BY: [facility] [address] [place] [id number] PATHOLOGIST LAY OUT INSPECTOR JUNIE ARMENDARIZ M.D. Performed By: #### T SH3 wRFLX, [id number], LIPID #### [facility] [address] [place] [address] [facility] Acetamnphn Lvlon 06-29-2022 Acetaminophen [Mass/Vol] ug/mL Low 15-30 [facility] Comment on above: Performed By: #### 2 113902, 2184854, 6740642, 16835298, 4916700, 6330836 ####[facility] [address] [place] [address] Auto Diffon 06-29-2022 Basophils/100 WBC (Bld) 0.6 % Normal 0.0-2.0 F [facility] Comment on above: Order Comment: Order Added by Discern Expert. Performed By: #### 2 659761, 3214125, 5811119, 78730351, 1708442, 9753581 ####[facility] [address] [place] [address] Basophils/Leukocytes Auto (Bld) [Pure # fraction] 0.1 E9/L Normal 0.0-0.2 [facility] Comment on above: Order Comment: Order Added by Discern Expert. Performed By: #### 2 389999, 7831873, 6819008, 66138330, 3008242, 2338167 ####[facility] [address] [place] [address] Eosinophils/100 WBC (Bld) 2.9 % Normal 0.0-8.0 [facility] Comment on above: Order Comment: Order Added by Discern Expert. Performed By: #### 2 008087, 7152772, 6816109, 03242622, 6180729, 4372032 ####[facility] [address] [place] [address] Eosinophils/Leukocytes Auto (Bld) [Pure # fraction] 0.3 E9/L Normal 0.0-0.5 [facility] Comment on above: Order Comment: Order Added by Discern Expert. Performed By: #### 2 092167, 4824226, 5237181, 70745547, 6591512, 8813794 ####[place] [address] [place] [address] Lymphocytes/100 WBC (Bld) 24.2 % Normal 14.0-50.0 [facility] Comment on above: Order Comment: Order Added by Discern Expert. Performed By: #### 2 075984, 8997877, 1696125, 95763740, 6887973, 6516877 ####[address] [address] Lymphocytes/Leukocytes Auto (Bld) [Pure # fraction] 2.3 E9/L Normal 1.0-4.0 [facility] Comment on above: Order Comment: Order Added by Discern Expert. Performed By: #### 2 073060, 7831979, 8268569, 87707255, 8725130, 8429947 ####[place] [address] [place] [address] Monocytes/100 WBC (Bld) 6.5 % Normal 4.0-14.0 [facility] Comment on above: Order Comment: Order Added by Discern Expert. Performed By: #### 2 988997, 8225474, 3644395, 20622656, 6483008, 0551230 ####[place] [address] [place] [address] Monocytes/Leukocytes Auto (Bld) [Pure # fraction] 0.6 E9/L Normal 0.2-1.0 [facility] Comment on above: Order Comment: Order Added by Discern Expert. Performed By: #### 2 051316, 8001593, 5243108, 02576301, 4070092, 9923196 ####[place] [address] [place] [address] Neutrophils/100 WBC (Bld) 65.8 % Normal 36.0-75.0 [facility] Comment on above: Order Comment: Order Added by Discern Expert. Performed By: #### 2 051272, 2472080, 2586056, 09902938, 9614432, 4211949 ####[place] [address] [place] [address] Neutrophils/Leukocytes Auto (Bld) [Pure # fraction] 6.4 E9/L Normal 2.0-7.5 [facility] Comment on above: Order Comment: Order Added by Discern Expert. Performed By: #### 2 584058, 2532207, 0230775, 79346552, 8402510, 0879791 ####[address] [address] CBC w/ Auto Diffon Erythrocyte distribution width (RBC) [Ratio] 11.9 % Normal 10.9-14.2 [facility] Comment on above: Performed By: #### 2 427342, 5465372, 7008544, 81190755, 9006973, 1300832 ####[address] [address] Hematocrit (Bld) [Volume fraction] 37.9 % Normal 34.0-46.0 [facility] Comment on above: Performed By: #### 2 393599, 8875518, 9006077, 38613996, 1904560, 9345163 ####[place] [address] [place] [address] Hemoglobin (Bld) [Mass/Vol] 13.2 g/dL Normal 12.0-16.0 [facility] Comment on above: Performed By: #### 2 774569, 0147061, 0587827, 56035173, 4153105, 4931911 ####[place] [address] [place] [address] MCH (RBC) [Entitic mass] 30.8 pg Normal 27.0-34.0 [facility] Comment on above: Performed By: #### 2 187864, 4973362, 6500898, 69923281, 3355548, 3048482 ####[place] [address] [place] [id number] MCHC (RBC) [Mass/Vol] 34.8 g/dL Normal 31.4-36.0 [facility] Comment on above: Performed By: #### 2 761276, 9480546, 0097661, 57373858, 3614457, 9683990 ####[place] [address] [place] [id number] MCV (RBC) [Entitic vol] 88.4 fL Normal 80.0-100.0 F [facility] Comment on above: Performed By: #### 2 468671, 0826324, 3034621, 97478635, 9198556, 4620904 ####[place] [id number] Platelet mean volume (Bld) [Entitic vol] 8.7 fL Normal 6.4-10.8 [facility] Comment on above: Performed By: #### 2 469556, 3952002, 7393708, 61402489, 6492338, 3566678 ####[place] [id number] Platelets (Bld) [#/Vol] 256.0 E9/L Normal 150.0-500.0 [facility] Comment on above: Performed By: #### 2 401918, 3719285, 7288484, 48182203, 0412197, 6215526 ####[place] [address] RBC (Bld) [#/Vol] 4.3 E12/L Normal 4.3-5.9 [facility] Comment on above: Performed By: #### 2 635932, 6223683, 0762604, 06237903, 1897881, 6705260 ####[place] [address] WBC corrected for nucl RBC Auto (Bld) [#/Vol] 9.7 E9/L Normal 4.0-11.0 [facility] Comment on above: Performed By: #### 2 227076, 4522325, 4153650, 91258808, 6694512, 3855220 ####[facility] [address] [place] [address] CMPon 06-29-2022 Albumin [Mass/Vol] 4.7 g/dL Normal 3.3-5.0 [facility] Comment on above: Performed By: #### 2 855326, 1146253, 5485555, 46955200, 7688110, 9935307 ####[facility] [address] [place] [address] Albumin/Globulin (S) [Mass conc ratio] 1.3 Normal 1.1-2.2 [facility] Comment on above: Performed By: #### 2 363318, 6669577, 7589705, 47316314, 2360936, 8982098 ####[facility] [address] [place] [address] ALP [Catalytic activity/Vol] 59 Int._Unit/L Normal 21-98 [facility] Comment on above: Performed By: #### 2 861450, 7989210, 3967035, 25892889, 5019141, 7982662 ####[facility] [address] [place] [address] ALT No additional P-5'-P [Catalytic activity/Vol] 17 Int._Unit/L Normal 6-46 [facility] Comment on above: Performed By: #### 2 [id number], 9621186, 0192089, 14388838, 1535925, 7651346 ####[facility] [address] [place] [address] AST [Catalytic activity/Vol] 20 Int._Unit/L Normal 5-43 [facility] Comment on above: Performed By: #### 2 136487, 7790309, 8365674, 03505684, 5618954, 7311749 ####[facility] [address] [place] [address] Bilirubin [Mass/Vol] 1.1 mg/dL Normal 0.0-1.1 [facility] Comment on above: Performed By: #### 2 676967, 3779442, 0926832, 84512966, 3054637, 7797826 ####[facility] [address] [place] [address] Creatinine [Mass/Vol] 0.7 mg/dL Normal 0.5-1.3 [facility] Comment on above: Performed By: #### 2 369528, 0745159, 7458121, 06519206, 5970347, 3831796 ####[facility] [address] [place] [address] Globulin (S) [Mass/Vol] 3.6 g/dL Normal 1.4-4.0 [facility] Comment on above: Performed By: #### 2 305768, 7756224, 2983323, 19885164, 6275629, 7046687 ####[facility] [address] [place] [address] Protein [Mass/Vol] 8.3 g/dL High 6.0-7.8 [facility] Comment on above: Performed By: #### 2 356135, 6619301, 5407979, 60437064, 2147792, 1264209 ####[facility] [address] [place] [address] Urea nitrogen [Mass/Vol] 9 mg/dL Normal 5-21 [facility] Comment on above: Performed By: #### 2 181011, 9780486, 1939996, 46298021, 5825372, 2508035 ####[facility] [address] [place] [address] Urea nitrogen/Creatinine [Mass ratio] 13 No Units Normal 10-20 [facility] Comment on above: Performed By: #### 2 267108, 5131060, 1149505, [id number], 0938554, [id number] ####[facility] [address] [place] [place] [address] Anion gap [Moles/Vol] 14 mmol/L Normal 6-16 [facility] Comment on above: Performed By: #### 2 876824, 0928491, 3958791, 16686430, 6682517, 9772079 ####[facility] [address] [place] [address] Calcium [Mass/Vol] 9.9 mg/dL Normal 8.9-11.1 [facility] Comment on above: Performed By: #### 2 287326, 8105497, 9014057, 67947360, 4243543, 5263068 ####[facility] [address] [place] [address] Chloride [Moles/Vol] 102 mmol/L Normal 101-111 [facility] Comment on above: Performed By: #### 2 513117, 5614332, 6770361, 23870236, 4843871, 8362999 ####[facility] [address] [facility] [place] [address] CO2 [Moles/Vol] 24 mmol/L Normal 21-31 [facility] Comment on above: Performed By: #### 2 583033, 6167636, 8011784, 66504130, 2823113, 3166012 ####[facility] [address] [facility] [place] [address] Glucose [Mass/Vol] 103 mg/dL Normal 55-199 [facility] Comment on above: Result Comment: If t his glucose result represents a fasting glucose, interpretation should refer to the following reference range: 55-99 mg/dL Performed By: #### 2 311431, 9374061, 7065439, 90479014, 8789730, 0126501 ####[facility] [address] [place] [address] Potassium [Moles/Vol] 4.1 mmol/L Normal 3.5-5.3 [facility] Comment on above: Performed By: #### 2 359565, 7822279, 5671191, 54657201, 4672298, 3396584 ####[facility] [address] [place] [address] Sodium [Moles/Vol] 136 mmol/L Normal 135-145 [facility] Comment on above: Performed By: #### 2 399137, 4921734, 7078347, 66700263, 6963233, 3441417 ####[facility] [address] [place] [address] Consent for Treatmenton 06-04 Consent for Treatment [id number]:127 Normal [facility] ED Note-Physicianon 06-29-20 ED Note-Physician Basic Information Time Seen: Arnoldo Wellington PA-C 06/29/2022 17:39 Chief Complaint pt arrives via [facility] for suicidal ideations. pt states she took 6 200mg ibuprofen around History of Present Illness 27-year-old female comes to the ED for evaluation of suicidal ideation. She has a history of depression. States she has tried to harm her self in the past. She describes increased stress recently and today she took 6 200 mg ibuprofen tablets. When asked if she was try to harm herself she states sort of . She does follow with counseling. She denies any acute medical complaints. She has no chest pain, abdominal pain, nausea or vomiting. She denies any other coingestions. Review of Systems A 10 point review of systems is negative except as noted above. Medical and Surgical History: Reviewed and noted Social history: Lives at home Tobacco: Denies Physical Exam Vitals & Measurements T: 37.0 ?C(Oral) HR: 78(Peripheral) BP: 129/75 SpO2: 100% HT: 160 cm WT: 59.5 kg BMI: 23.24 Nurses notes and vital signs reviewed and patient is not hypoxic. General: The patient appears well, resting comfortably. Skin: Warm, dry. Head: Atraumatic. Neck: No JVD. Eye: Normal conjunctiva. Ears, Nose, Mouth, and Throat: Moist mucous membranes. Cardiovascular: Strong distal pulses. Chest wall: Respiratory: Respirations are nonlabored. Back: Normal range of motion. Musculoskeletal: Normal ROM with no gross deformity. Gastrointestinal: Urological: Neurological: Awake and alert. No focal deficits. Follows commands. Psychiatric: Cooperative. Suicidal Medical Decision Making Patient presents with suicidal ideations and drug ingestion taking a total of 1200 mg of ibuprofen prior to arrival. She is cooperative. Medical work-up ordered and pending, case discussed with the oncoming physician for follow-up and disposition. Patient was evaluated by [facility]. She was accepted for placement at [facility] by Dr. Pepe. Assessment/Plan 1. Suicidal ideation (R45.851: Suicidal ideations) Orders: Acetaminophen Level CBC w/ Auto Diff Communication Order Comprehensive Metabolic Panel Consult to Mental Health Drug Screen Urine ECG 12 Lead Adult Ethanol Level Salicylate Level U Beta Hcg Qual Disposition Plan Patient Discharge Condition Fair Discharge Disposition Transfer to Discharge Prescription List Prescriptions No active prescription medications Follow-up No qualifying data available Problem List/Past Medical History Ongoing Chlamydia Lower back pain None Historical No qualifying data Procedure/Surgical History Dilation and curettage. Medications Inpatient No active inpatient medications Home Abilify, Not taking Benadryl 25 mg Cap, 1-2 cap(s), Oral, TID, PRN, Not taking busPIRone 10 mg Tab Lamictal Latuda 40 mg oral tablet Pepcid 20 mg Tab, 20 mg= 1 tab(s), Oral, BID, Not taking Allergies No Known Allergies Social History Alcohol - Denies Alcohol Use, 06/01/2015 Current, 1-2 times per month, 11/08/2020 Substance Abuse - Denies Substance Abuse, 06/01/2015 Marijuana, 06/29/2022 Tobacco - Denies Tobacco Use, 06/01/2015 Never (less than 100 in lifetime) Tobacco Use:. Never Smokeless Tobacco Use:., 12/27/2021 Family History Ovarian cancer: Aunt. Lab Results WBC: 9.7 E9/L (06/29/22 18:01:00) RBC: 4.3 E12/L (06/29/22 18:01:00) HGB: 13.2 gm/dL (06/29/22 18:01:00) Hct: 37.9 % (06/29/22 18:01:00) MCV: 88.4 fL (06/29/22 18:01:00) MCH: 30.8 pg (06/29/22::00) MCHC: 34.8 gm/dL (06/29/22::00) RDW: 11.9 % (06/29/22::00) Platelet: 256 E9/L (06/29/22::00) MPV: 8.7 fL (06/29/22::) Neutro Auto: 65.8 % (06/29/22::) Lymph Auto: 24.2 % (06/29/22::00) Guthrie Auto: 6.5 % (06/29/22::) Eos Auto: 2.9 % (06/29/22::) Basophil Auto: 0.6 % (06/29/22:) Neutro Absolute: 6.4 E9/L (06/29/22::) Lymph Absolute: 2.3 E9/L (06/29/22::) Guthrie Absolute: 0.6 E9/L (06/29/22::00) Eos Absolute: 0.3 E9/L (06/29/22::00) Basophil Absolute: 0.1 E9/L (06/29/22:) Glucose Lvl: 103 mg/dL (06/29/22::00) BUN: 9 mg/dL (06/29/22::) Creatinine: 0.7 mg/dL (06/29/22::) eGFR: >60 (06/29/22:) eGFR AA: >60 (06/29/22::) BUN/Creat Ratio: 13 (06/29/22::) Sodium Lvl: 136 mmol/L (06/29/22::00) Potassium Lvl: 4.1 mmol/L (06/29/22::00) Chloride: 102 mmol/L (06/29/22::00) CO2: 24 mmol/L (06/29/22::00) AGAP: 14 mEq/L (06/29/22:01:00) Calcium Lvl: 9.9 mg/dL (06/29/22 18:01:00) Alk Phos: 59 Int._Unit/L (06/29/22 18:01:00) ALT: 17 Int._Unit/L (06/29/22 18:01:00) AST: 20 Int._Unit/L (06/29/22 18:01:00) Total Protein: 8.3 gm/dL High (06/29/22 18:01:00) Albumin Lvl: 4.7 gm/dL (06/29/22 18:01:00) Globulin: 3.6 gm/dL (06/29/22 18:01:00) A/G Ratio: 1.3 (06/29/22 18:01:00) Bili Total: 1.1 mg/dL (06/29/22 18:01:00) Acetaminoph Lvl: <10 Low (10 (more content not included)... Normal [facility] Comment on above: Result Comment: Elec tronically Signed By: Arnoldo Wellington PA-C\.br\Date and Time Signed: 06/29/22 18:19 EDT\.br\Electronically Co-Signed By: Lili Hollis DO\.br\Date and Time Co-Signed: 06/29/22 20:35 EDT\.br\Electronically Co-Signed By: Sai Vasquez DO\.br\Date and Time Co-Signed: 06/30/22 19:05 EDT Ethanolon 06-29-2022 Ethanol [Mass/Vol] mg/dL Normal <=7 [facility] Comment on above: Performed By: #### 2 [id number] ####[facility] [address] [place] [address] Rapid COVID Antigen ([facility])on 06-29-2022 Rapid COV Int NEG Ctl Pass Normal [facility] Comment on above: Performed By: #### 2 [id number] ####[facility] [address] [place] [address] Rapid COV Int POS Ctl Pass Normal [facility] Comment on above: Performed By: #### 2 [id number] ####[address] [place] [address] SARS-CoV+SARS-CoV-2 (COVID-19) Ag IA.rapid Ql (Resp) Not detected Normal Not Detected [facility] Comment on above: Result Comment: The [employer]? System for Rapid Detection of SARS-CoV-2 is a chromatographic digital immunoassay intended for the direct and qualitative detection of SARS-CoV-2 nucleocapsid antigens in nasal swabs from individuals who are suspected of COVID-19 by their healthcare provider within the first five days of the onset of symptoms. Negative results should be treated as presumptive, do not rule out SARS-CoV-2 infection and should not be used as the sole basis for treatment or patient management decisions, including infection control decisions. Negative results should be considered in the context of a patient?s recent exposures, history and the presence of clinical signs and symptoms consistent with COVID-19, and confirmed with a molecular assay, if necessary, for patient management. For in vitro diagnostic use. In the [place], only for use under an Emergency Use Authorization. In the [place], this test has not been FDA cleared or approved; this test has been authorized by FDA under an EUA for use by authorized laboratories; use by laboratories certified under the CLIA, 42 U.S.C. ?263a, that meet requirements to perform moderate, high, or waived complexity tests and at the Point of Care (POC), i.e., in patient care settings operating under a CLIA Certificate of Waiver, Certificate of Compliance, or Certificate of Accreditation. This test has been authorized only for the detection of proteins from SARS-CoV-2, not for any other viruses or pathogens; and, in the [place], this test is only authorized for the duration of the declaration that circumstances exist justifying the authorization of emergency use of in vitro diagnostics for detection and/or diagnosis of the virus that causes COVID-19 under Section 564(b)(1) of the Act, 21 U.S.C. ? 360bbb-3(b)(1), unless the authorization is terminated or revoked sooner. Performed By: #### 2 [id number] ####[address] [place] [address] ADMITTED TO INTENSIVE CARE UNIT FOR CONDITION OF INTEREST:FIND:PT: NO Normal [facility] Comment on above: Performed By: #### 2 [id number] ####[facility] [address] [place] [address] EMPLOYED IN A HEALTHCARE SETTING:FIND:PT: NO Normal [facility] Comment on above: Performed By: #### 2 [id number] ####[facility] [address] [place] [address] FIRST TEST FOR CONDITION OF INTEREST:FIND:PT: YES Normal [facility] Comment on above: Performed By: #### 2 [id number] ####[facility] [address] [place] [address] HAS SYMPTOMS RELATED TO CONDITION OF INTEREST:FIND:PT: NO Normal [facility] Comment on above: Performed By: #### 2 [id number] ####[facility] [address] [place] [address] HOSPITALIZED FOR CONDITION OF INTEREST:FIND:PT: NO Normal [facility] Comment on above: Performed By: #### 2 [id number] ####[facility] [address] [place] [address] STATUS:FIND:PT: NO Normal [facility] Comment on above: Performed By: #### 2 [id number] ####[facility] [address] [place] [address] RESIDES IN A CONGREGATE CARE SETTING:FIND:PT: NO Normal [facility] Comment on above: Performed By: #### 2 [id number] ####[facility] [address] [place] [address] Salicylateon 06-29-2022 Salicylates [Mass/Vol] mg/dL Low 6-29 [facility] Comment on above: Performed By: #### 2 595441, 8933989, 6039615, 93147344, 2178709, 3222860 ####[facility] [address] [place] [address] U BetaHcg Qualon 06-29-2022 HCG.beta subunit (U) [Moles/Vol] Negative Normal [facility] Comment on above: Performed By: #### 2 [id number] ####[facility] [address] [place] [address] U Drug Screenon 06-29-2022 Amphetamines Screen method >1000 ng/mL Ql (U) Negative Normal Negative [facility] Comment on above: Result Comment: Nega tive Cutoff: <1000 ng/mL Performed By: #### 2 [id number] ####[facility] [address] [place] [address] Barbiturates Screen Ql (U) Negative Normal Negative [facility] Comment on above: Result Comment: Nega tive Cutoff: <200 ng/mL Performed By: #### 2 [id number] ####[facility] [address] [place] [address] Benzodiazepines Ql (U) Negative Normal Negative [facility] Comment on above: Result Comment: Nega tive Cutoff: <200 ng/mL Performed By: #### 2 [id number] ####[facility] [address] [place] [address] Cocaine Ql (U) Negative Normal Negative [facility] Comment on above: Result Comment: Nega tive Cutoff: <300 ng/mL Performed By: #### 2 [id number] ####[facility] [address] [place] [address] Opiates Screen Ql (U) Negative Normal Negative [facility] Comment on above: Result Comment: Nega tive Cutoff: <300 ng/mL Performed By: #### 2 [id number] ####[facility] [address] [place] [address] Phencyclidine Screen method >25 ng/mL Ql (U) Negative Normal Negative [facility] Comment on above: Result Comment: Nega tive Cutoff: <25 ng/mL These drug screen results are to be used for medical (i.e., treatment) purposes only. Unconfirmed drug screening results must not be used for non-medical purposes (e.g., employment testing, legal testing). Performed By: #### 2 [id number] ####[facility] [address] [place] [address] Tetrahydrocannabinol Screen method >50 ng/mL Ql (U) Negative Normal Negative [facility] Comment on above: Result Comment: Nega tive Cutoff: <50 ng/mL Performed By: #### 2 [id number] ####[facility] [address] [place] [address] eGFRon 06-29-2022 GFR/1.73 sq M.predicted among blacks MDRD (S/P/Bld) [Vol rate/Area] mL/min/{1.73_m2} Normal >=59 [facility] Comment on above: Order Comment: Order added by Discern Expert. Result Comment: eGFR is race adjusted. AA=. Performed By: #### 2 185476, 2464076, 0535197, 95863698, 0615017, 2710228 ####[address] [place] [address] GFR/1.73 sq M.predicted among non-blacks MDRD (S/P/Bld) [Vol rate/Area] mL/min/{1.73_m2} Normal >=59 [facility] Comment on above: Order Comment: Order added by Discern Expert. Result Comment: [employer] vadim kidney disease could be indicated at eGFR's of less than 60 mL/min/1.73m2. Kidney failure is indicated at less than 15 mL/min/1.73m2. Performed By: #### 2 740328, 4951273, 6421919, 96454042, 7644837, 5964297 ####[facility] [address] [place] [address] Coding Summary.on 06-16-2022 Coding Summary. CD:[id number] G h0bWw+PGhlYWQ+WS9DVWG mT69gmZGnsD8KL1zUPT7L KUPBMWEJYU6MNW8zvVW9S SmnT9IzdnPa YvophKPfMS25IVx3OKL1m GchEJgcfN1qeMToY0q0Ia ZiHC21yB59EIdwRMHdEhJ 3LjZpbjsgbWFy X8ghEvGmtHMdHcj+PHRhY mxlIHdpZHRoPScxMDAlJy TdeJfaYF2dOm5uOEIiEYK vbGxhcHNlOiBj s9fjKGCfIIqoZV6buHgtE 1XosBG2JQLcv1n3Dv67iM I+CKVbCBT9wVdaYEvor97 6JaAga2raZDD7 xLMyDPooTBG6C61kf0Q3O BZpOZEfXJD2fAH7uH5agP wcgpopW8KeeGWePaW4ZSM 1vCOczC3gfKkz vkbciZ7hOgf+U90OZF4HE DNYWM5KRnv4R3BzJxsvjK I+NI87SFEkRH61iYDkgRK yv6yheCo1SaOf TXBaJRT5eYkmSGqts1RxL HQpH91edZMaz0H5MAHhqQ augBTuKuTubAD7cI6xXCc esswil2bylvyr Bekga8tvua83bI21J09mB OliJCWtBMV0OYLbYXGjaR uefb8zxD5nDo4+WRksw5u qz1xrtZu6WzBm QFHiiyIpyJyoVVD1l5BdE h62V1ZksDuvq2SkPuo5vs 71gILfj3P3aQK9UUxxZYG qaK2yHPqqNuG3 DONcZeBbwU87iVFmQOrsQ c0abGidaHvaJA9kWOTxku hfLBMikF7kBZKqsQVdrWx tDP0xNVVfewfe q561MeJvAIK7YBWxkBOnN 7FtlH0gAjUvFJJtWUMyL1 OexTFyXZjlY541QCwfStH 4HUOftpGqU7Va FHLnjDxaSyK3u6S5Dp3Pp 1QqgfaiXAC9ECivFECmEt L1CdLbNiB0L3ArSeo4HPG sqGkvLW8gB2Dz LJPttbfaqewyeIZ9NJEzH XRsuU54xFNqYZgdCp6gq6 Y1o960DPLjBQBbzA11Ym2 udDogMTBwdCBU yS8yeqvly4tsawsiVsBdZ VCqYKi7IQm5AZLxoCmzOf IqHQQ9XuR2BXI4xOSoaE0 xmUiibicusU2f Oyc+X37voH9ySQY1BWU0c jdoSXRoheVhBU54IG80J8 RyPjwvdGFibGU+PGRpdiB xjRlpIF9aPhRd v4bhj6CkEOcsZ3IyVVTgK NuqPzk9SFMzPYT5cLW8iJ 1vKZMmLGmip8P6lFC5B9P icrGaeq4lu4az TWNyGTouF61qiJIqp7Y8Q JRbjTQ5AJQvjZomVzLzbH 93Oyc+NCRqiNapd8QlCdb rj7npf4smsSo4 IxQkGMFlriMqxFuaRZZ0h 0UlKp12O58zQJymJFGaIQ WlUQSxJWNtyCwszr1sxI6 wIi8+PGNvbCB3 xLH5yE8hFUFsRiY3YHtgF 572GvVivVYuJudki5rrr7 ydfOv3UqKjVVOrucNqvRp xEWA3i6LmJc84 N68sDIpcXWHaDFMpGBQyU XQuoCqqgw1fzU8fSe2+PC 6fo6bzmf68fT30rXD+PHR lNQR6zTsuVMpw CFPgoO7jWEibVhQ2XTZzT nOhaO77gHYnELrbXn2nsI uqtRniBN6yYBJokbtdm06 7OkQuq7wzBRHa oCQhMAqsXMA4T61yz6V8U WZoQNUkXNZ1hYA4sC6fvP lnbjogbGVmdDsgdmVydGl rAZfyWSznQ014 IHRvcDsnPlBhdGllbnQgT zRnBEb0I3GkDhb3KEPeuI gwKN6wcEDwCMlxSx2mnVk geBibEK2gUGWk zuthn008AlIhj2tlJQRvs ZHdAWirSSF5K69yo4I6TX RzCUAnICC2dAI5wE4hmPy nbjogbGVmdDsg kiYbfRicNBiiVHvuH490X HRvcDsnPkJpcnRoIERhdG Z8HX73SN90rOOfs9M3wZC 8H6ThYWQifaid lwxkzEP3GOUbDKZnaG62K q9idLraMf2uDKSwRUL2YV MndSVxS0GqrP1wXbCgSJO zJIPwC5LhsOWe ZOcgA997FUvhIcJ5XEWwe gSnR7SdTSVtoWsrZuV4j3 N5Ee7EQ5C2YB48CF53gSP we0Y6hMX3N9Ni TYDrcbhyickefGW8DSCaD NNmeV12Zu6qrJppNn0tXZ GpKGU2WJPjlNKrW5RivP8 yOiAjMDAwMDAw J9TigTPkMWwaN296VZxaC tD4GWPdbaDhA5FzIUOqlG pjMkL9f6L3Jp3IQPq0SA2 1CQ02pHMdt2B4 iOJ1W1YmWTHjuspjpjfmu LB2NHJkAEOjiI99Ma6rdA ruHg8jVFPzQAO4NZCatZH nC1OmrG4tSpXj CYTaDDBmM8ImrTDhUJhjB 094SByhWuC2TJLquvNhY0 KmFONbyHwvQyA6h2J9Xt7 IPKKlJX64XRB3 sYE5EC97ZU88U1ZcSfutf GFibGU+PHRhYmxlIHdpZH RoPScxMDAlJyBzdHlsZT0 wUs9sGRWgQLMv oLuesRGtPkGuc9elYVDxO PqyES9egNhvH9LgaKI8MF Vop8s8Ws34N34wM0GleTS +TRZyaXU5zGQ3 jN1nFpAdCvU9UEtnN920Y wGaeRUuKgljp3jru2gbsP y3ErG8WDJslxSplKktNXW 8j7QcIm37G21l IHdpZHRoPSIxNSUiIHZhb Yukjt3isW4gHr6+PGNvbC O8bTK7cM2xElEcEnF3PRh oY628VcXbrGDh Ctwfo1pvf9ykcHj0MnMsC BLnmjPuxZhgSYZ8x5CqHj 04F6EtxTprx0CpLbm8xt2 2gDXjy2E4sPQ1 I6DkERTmewyxjMLvaOmjH S5hODOxzbcjDMCcsL9eDJ IhQ9n9YsNjZwA4GRfdW5N rozQ5YUCnmBYa YXngWRV4G78bi4H9JAUyQ TRdZAJ6bUF8nY0zqFzibp ogbGVmdDsgdmVydGljYWw nQKakP357FFRf cWcdSJKznK0jWXCcoXUvp EewUP6iHFKrxpxcKpzNTq FXBPZXKLwBY4VfWWkonLK +GLRoDAD3gRsc EDoiKLMgnR1gZNQdW1e9G kToCaJ0WGfyB7IkDJRbpe xbBw45fR8cWhCwWuM7CAv iZ2GfmaS3XZKf qRVdYZioJGP3D69sz9F5K STwYUOaOGO5xRT7wV4wqC lnbjogbGVmdDsgdmVydGl aYRksUVuyE811 NWIwgIooFmM7QiR4OpE3S Tr8I6RgIrb9YDMejOtkWT 7pwQFoTOxfSv2woWksjJs zLM1wXUPtylpn LYYczJ5eNPWljCGybFiuH Y4vYHQgotjar872XyIeZF N0DUKhsDDzD5KomJ3bTdR hWMOnGURqR0Dz mXNhWNzwW915BQxsOjB5L PUctcDvE8JiTMXzkUuuSw W1b6U8Sl2pQGTZBHScaou vdGQ+PHRkIHN0 cPtiBRpcNBHhcG3mQNRbQ 0l6SbEzMwR3UApaO4QaRB FiadbtXy58cQ4cDkSoYlC 4UMeoK1IvjkS8 NMIwzMKyGGgqBPZ6O19ih 7S0NDBjVHUhYEN5dHW3kK 1hbGlnbjogbGVmdDsgdmV ydGljYWwtYWxp Y183YMObyWemEpOdtWKxR TwvdGQ+OKOtNXD8xPfhIB cuBCXnkC5nWLEjM9i8SbE pHaM7SPnkT8Gm BXYewxbeBt51uE6vJxPbI oW6LLizU4JbdbL3QPUbqP EqDIlqULF2H78eq5I4DJV rIDTkIGK4lMI4 lE7qwKfykquebXNooExsn vJxjZcwRFmuMXywK146ZQ LueYkrIh93yXZpoJionfY 8T9YsEozwiUL+ MF62QMXsLL67eOCifRVvs 4flmOk8PlYpOBNqDQH3bX imGUbnm9MeIIQdT52cfKH yp5I9POWfdAem wVAuUxTkpVS1hL6dAFvyb cdem6efkfudXqqvv4vltx 69aN28J23yUArqVXRpEBO zMCUiIHZhbGln ux7vbA8tEt0+TAGwhOV5f XE3uU7bMrCfRcH9HPjqV5 41HnUbrCFeBuugb8pqm9o fkZi9FnSqBIMq yvDkyAavQGN9c0KgAv56L 29sIHdpZHRoPSIyMCUiIH YjjQpvtq6lyQ2nOu8+PC9 gl8abkh95vR25 dHI+VURdDMJ8uNdmZZjpN BKxhH2pXRdzXlF8DFDzCr KwxC14uOQrGXdxYq7piXa vtTmoQS8hRKXt bmvlh524MrOsh9puEVQmv NUdGIaqNUF1V54dc2C8PD OaGFZrHIU3aSG5qC2uuIq nbjogbGVmdDsg kyIsrVqqGYekAAozS304F RWwiYxyVrXlkINpC6huuq GLSN7zJaddnJF+PHRkIHN 0eWxlPSdwYWRk lA9bSLWhG4e1QzHnEbR0Z CiaL0FwdeY5HSXhrIZsDP CqzJGQyM6ficghu9ifjuc gIzAwMDAwMDt0 VMc6OJQmxHthByCmBLI6P eS5JNJ2jKLqrW9ctEmxsy eomS4aXyc+RklOOjwvdGQ +NUSrZLD9bQyh XBdwMUXvqL9vPJYgA6f6G yDeMsH9XTrdV6CkyqM7GO ZadCCvRZZeqYGVdD6tbib ca7yoqpjaLtCw EKOoCRq6IRq8AHPiuZexV eDgGCJ6HaK7IKK6nUUcpL 8sfKpwitnzlX3wKni+TVJ OOjwvdGQ+PHRk SBX6wEvaNLwkMTFwjC4jN CFuI3i1ScYmHbT7GAvdO7 JfhoQ3BMNakAYgOKDwfAZ CiU2pposey3yj jnhoDgErOULySZw9OVf6Q IJfqQhlEbWlSAQ7ScK2BZ E6hAPelQ9eeBtdrzitnS8 wOyc+RST9WEK1 DZ75BT33U5DhRahdwTVau +PHRhYmxlIHdpZHRoPS gfBEMgLdCmyDluWY5pXy6 yZGVyLWNvbGxh cHNl (more content not included)... Normal [facility] CT Head or Brain w/ + w/o Co ntraston 06-12-2022 CT Head or Brain w/ + w/o Contrast Exam Date/Time: 06/12/2022 11:32 EDT Reason for Exam: R27.0 Report IMPRESSION: NEGATIVE HEAD CT WITHOUT AND WITH CONTRAST. EXAM: CT Head or Brain w/ + w/o Contrast DATE: 06/12/2022 CLINICAL HISTORY: R27.0. COMPARISON: Maxillofacial CT 06/01/2015. TECHNIQUE: Spiral imaging was obtained of the head before and after uneventful intravenous administration of approximately 100 mL of Isovue [address] scans at this facility use dose modulation, iterative reconstruction, and/or weight based dosing when appropriate to reduce radiation dose to as low as reasonably achievable. FINDINGS: There is no intracranial hemorrhage, mass effect, abnormal enhancement, midline shift, extra-axial collection, evidence of hydrocephalus, skull fracture, or a recent ischemic infarct identified. There is no significant atrophy, or white matter changes, for age. The mastoid air cells and visualized paranasal sinuses are essentially clear. FINAL REPORT Dictated: 06/12/2022 11:37 am Calvin Christie MD Signed (Electronic Signature): 06/12/2022 11:37 am Signed by: Calvin Christie MD Transcribed by: PABLO Technologist: ANTHONY Technical Comments GFR (mL/min/1/73m2) n/a Contrast: Isovue 300 Contrast amount in ml's: 100 Normal [facility] Consent for Treatmenton 06-03 Consent for Treatment [id number] 210 [id number]:127 Normal [facility] URon 04-04-2022 , QUAL Negative Normal NEGATIVE [facility] Comment on above: Performed By: #### P REGU #### [facility] [address] [place], [place] [address] Dr. Jorge Perez PAP ACOG PANEL 2: 21 to 29on 03-24-2022 . . Normal [facility] Comment on above: Performed By: #### [id number] #### [facility] [address] [place] [address] Dr. Jorge Perez DIAGNOSIS: Comment Normal [facility] Comment on above: Result Comment: NEGA TIVE FOR INTRAEPITHELIAL LESION OR MALIGNANCY. THIS SPECIMEN WAS RESCREENED PART OF [employer] PROGRAM. Performed By: #### [id number] #### [facility] [address] [place] [address] [address] Jorge Perez Methodology: Comment Normal [facility] Comment on above: Result Comment: This liquid based ThinPrep(R) pap test was screened with the use of an image guided system. Performed By: #### [id number] #### [facility] [address] [place] [address] Dr. Jorge Perez Note: Comment Normal [facility] Comment on above: Result Comment: The Pap smear is a screening test designed to aid in the detection of premalignant and malignant conditions of the uterine cervix. It is not a diagnostic procedure and should not be used as the sole means of detecting cervical cancer. Both false-positive and false-negative reports do occur. . Performed By: #### [id number] #### [facility] [address] [place] [address] Dr. Jorge Perez Performed by: Comment Normal [facility] Comment on above: Result Comment: Reymundo Fraire Back Shoe Operator (ASCP) Performed By: #### [id number] #### [facility] [address] [place] [address] Dr. Jorge Perez QC reviewed by: Comment Normal [facility] Comment on above: Result Comment: Gurpreet Khanna Back Shoe Operator (ASCP) Performed By: #### [id number] #### [facility] [address] [place] [address] Dr. Jorge Perez Reflex Criteria: Comment Normal [facility] Comment on above: Result Comment: The HPV DNA reflex criteria were not met with this specimen result therefore, no HPV testing was performed. . Performed By: #### [id number] #### [facility] [address] [place] [address] Dr. Jorge Perez Specimen adequacy: Comment Normal [facility] Comment on above: Result Comment: Sati sfactory for evaluation. Endocervical and/or squamous metaplastic cells (endocervical component) are present. Performed By: #### [id number] #### [facility] [address] [place], [place] [address] Dr. Jorge Perez Age Gdln ACOG Testing 21-29 Normal [facility] Comment on above: Performed By: #### [id number] #### [facility] [address], [place] [address] Dr. Jorge Perez Vital Signs Date Time Vital Sign Value Performing Clinician Faci lity 07-03-2022 07:30-0400 Body temperature 97.8 [degF] MD Shannon Glez Work Phone: [facility] 07-03-2022 07:30-0400 Diastolic blood pressure 81 mm[Hg] MD Shannon Glez Work Phone: [facility] 07-03-2022 07:30-0400 Heart rate 93 /min MD Shannon Glez Work Phone: [facility] 07-03-2022 07:30-0400 Respiratory rate 16 /min MD Shannon Glez Work Phone: [facility] 07-03-2022 07:30-0400 SaO2% (BldA) [Mass fraction] 98 % MD Shannon Glez Work Phone: [facility] 07-03-2022 07:30-0400 Systolic blood pressure 120 mm[Hg] MD Shannon Glez Work Phone: [facility] 06-30-2022 15:55-0400 Body height 160.02 cm MD Shannon Glez Work Phone: [facility] 06-30-2022 03:18-0400 Body weight 57.15 kg MD Shannon Glez Work Phone: [facility] Encounters Encounter Date Encounter Type Care Provider Facility Start: 09-05-2023 End: 09-05-2023 ambulatory PONCE ADLER Not Available Start: 08-29-2023 End: 08-29-2023 ambulatory SUZANNE LIZO Not Available Start: 08-22-2023 End: 08-22-2023 ambulatory PONCE ADLER Not Available Start: 08-16-2023 End: 08-16-2023 ambulatory PONCE MÁRQUEZEY Not Available Start: 08-01-2023 End: 08-01-2023 ambulatory SUZANNE LIZO Not Available Start: 07-16-2023 End: 07-16-2023 ambulatory PONCE ADLER Not Available Start: 06-06-2023 End: 06-07-2023 ambulatory Papi Lilly Facility:[facility] [place] Start: 06-04-2023 ambulatory [facility] Start: 04-24-2023 End: 04-24-2023 ambulatory [facility] Start: 12-25-2022 End: 03-26-2023 ambulatory FIONA GRIER Facility:[facility] Start: 12-09-2022 End: 12-10-2022 ambulatory Katherin PETERSEN Facility:[facility] [place] Start: 12-04-2022 End: 12-05-2022 ambulatory Sunshine Mejias Facility:[facility] [place] Start: 11-13-2022 End: 11-13-2022 ambulatory AUDREY MORGAN Facility:[facility] Start: 10-11-2022 End: 10-12-2022 ambulatory DAMI CHAPIN Facility: Start: 09-06-2022 End: 09-06-2022 ambulatory FIONA GRIER Facility: Start: 06-30-2022 End: 07-03-2022 Evaluation and management of inpatient Kyle Pepe Facility:[facility] Start: 06-30-2022 End: 07-03-2022 Evaluation and management of inpatient MD Shannon Glez Work Phone: [facility] [place] [address] Start: 06-29-2022 End: 06-30-2022 Emergency department patient visit Sai Vasquez Facility:[facility] Start: 06-12-2022 End: 06-13-2022 ambulatory Elvis Quinn Facility:[facility] Start: 04-04-2022 End: 08-02-2022 ambulatory FIONA GRIER Facility:[facility] Start: 03-20-2022 End: 03-20-[address] PALACIOS DANAY Facility:[facility] Plan of Treatment Date Care Activity Detail Author Start: 07-03-2022 [facility] Start: 06-30-2022 Referral to Dryer Feeder [facility] Start: 06-30-2022 Hospital admission [facility] Patient Education Anxiety, Adult (DC) [facility] Behavioral Health [place] Instructions [facility] Work Phone: Patient referral [facility] Work Phone: Payers Date Payer Category Payer Unknown [id number] 2022 Medicaid [id number] 2022 Medicaid [id number] 2022 Unknown [id number] 2022 Self-pay 1995 Unknown [id number] 2.16.84 [id number] 1997 Unknown [id number] 2.16.84 0.1.321258.3.579.2.593 1997 Unknown [id number] 2.16.84 0.1.069577.3.579.2.593 1997 Unknown [id number] 2.16.84 0.1.515484.3.579.2.593 1997 Unknown [id number] 2.16.8 40.1.412463.3.579.2.727 1997 Unknown [id number] 2.16.8 40.1.588066.3.579.2.727 1997 Unknown [id number] 2.16.8 40.1.790200.3.579.2.727 1997 Unknown [id number] 2.16.8 40.1.976215.3.579.2.727 1997 Unknown [id number] 2.16.8 40.1.693756.3.579.2.727 1997 Unknown [id number] 2.16.8 40.1.824725.3.579.2.727 1997 Unknown [id number] 2.16.840 .1.052416.3.579.2.9 1997 Unknown [id number] 2.16.840 .1.965786.3.579.2.9 1997 Unknown [id number] 2.16.840 .1.480209.3.579.2.1258 1997 Unknown [id number] 2.16.840 .1.941557.3.579.2.9 1997 Unknown [id number] 2.16.840 .1.096270.3.579.2.9 1997 Unknown [id number] 2.16.840. 1.388057.3.579.2.1259 1959 Unknown [id number] 1959 Unknown [id number] Unknown [id number] 2.16.8 40.1.937456.3.579.2.531 Social History Date Type Detail Facility Start: 06-30-2022 Tobacco smoking stat us [facility] Never smoked tobacco (finding) [facility] Start: 1995 Sex Assigned At Female F [facility] Goals Date Patient Goal Desired Activity /State Functional Status Date Assessment Result Facility 07-03-2022 Functional status Patient at Baseline [facility] Work Phone: Mental Status Date Assessment Result Facility 07-03-2022 Cognitive function Cognitive Sta tus Patient at Baseline [facility] Work Phone: Clinical Notes 04-04-2022 to 06-04-2023 Note Date & Type Note Facility 06-04-2023 Note -------- Attestation signed by Ronny Saha MD at 06/04/2023 1:04 PM I personally saw and examined the patient on the same date of service as resident/fellow . I discussed the findings and therapeutic plan with the resident/fellow . I agree with the documentation, except for any edits/updates below. Teaching Physician's Revisions: No revisions -------- Subjective Chief complaint: Chief Complaint Patient presents with Left Knee - Pain 06/04/23 Patient returns today for follow up. She states that since her last appointment she started physical therapy, which provides minimal relief. She still endorses L knee swelling, worse at night. She denies another patellar dislocation event. She states her knee still feels difficult to straighten all of the way. ROS: Denies fevers, chills, and other constitutional symptoms. Denies shortness of breath. 04/24/23 Priyanka Hardin is a 28 y.o. year old female presenting for evaluation of left knee pain that first started after an injury in September. 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 On the way to ER is reduced on its own. Since then she has pain with ambulation and edema in the left knee worse with walking. She saw an Ortho in [facility] and MRI completed which she was informed read as bony contusion and small medial meniscus tear, which we could not see on review of films. She completed PT with no improvement in pain. She is 20 weeks at today's evaluation. ROS: Denies fevers, chills, and other constitutional symptoms. Denies shortness of breath. Patient History History reviewed. No pertinent surgical history. Past Medical History: Diagnosis Date Anxiety Objective General: There is no height or weight on file to calculate BMI. There were no vitals filed for this visit. No acute distress, comfortable Respiratory: Unlabored breathing with normal rate, no cough Cardiovascular: Warm well perfused extremities Psych: Appropriate mood behavior right knee exam: Inspection- Effusion: moderate suprapatellar effusion Palpation- Patellar tendon: not tender Quad tendon: not tender Patella: Stable, No crepitus Active ROM: L knee 20- 120 degrees Meniscal exam- Medial joint line: tender Lateral joint line: not tender Natalee: negative medial, lateral Stability- ACL: Marko negative Collateral Ligaments: Stable to varus and valgus stress at 0 and 30 degrees PCL: Posterior drawer negative Strength Quadriceps: 5/5 Imaging: Previous MRI reviewed MRI of left knee taken in October of 2022 which shows bony contusion over lateral femoral condyle consistent with knee dislocation. No other acute soft tissue or bony pathology noted. Assessment/Plan Priyanka Hardin is a 28 y.o. year old female with Patellar maltracking, left - with continued L knee effusion and symptoms despite conservative management, we recommend submitting a C9 for L knee lateral retinacular release to improve patellar tilt. -we will submit C9 for L knee lateral retinacular release -will contact patient once approved. Raúl Kline MD Orthopaedic Surgery PGY-2 06/04/23 11:41 AM By using the attestations below, the signing clinician agrees that I have read and verify that the documentation has been personally reviewed by me and ensure that the documentation accurately reflects the encounter. GC: I personally saw this patient on the day of the encounter, performed the dougherty portion(s) of the service and participated in the management and confirm the resident's documentation. Please note there may be an additional personal documentation from me. [facility] 04-24-2023 Note -------- Attestation signed by Ronny Saha MD at 04/24/2023 1:14 PM I personally saw and examined the patient on the same date of service as resident/fellow . I discussed the findings and therapeutic plan with the resident/fellow . I agree with the documentation, except for any edits/updates below. Teaching Physician's Revisions: No revisions Priyanka's MRI L knee shows 2 things: evidence of a recent dislocation, and lateral patellar maltracking. I would recommend PT. She also has a large effusion. I would recommend aspiration. C-9 for L knee PT C-9 for L knee aspiration -------- Subjective Chief complaint: Chief Complaint Patient presents with Left Knee - Pain [facility] Injury, meniscus tear injured 09/06/2022 04/24/23 Priyanka Hardin is a 28 y.o. year old female presenting for evaluation of left knee pain that first started after an injury in September. 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 On the way to ER is reduced on its own. Since then she has pain with ambulation and edema in the left knee worse with walking. She saw an Ortho in [facility] and MRI completed which she was informed read as bony contusion and small medial meniscus tear, which we could not see on review of films. She completed PT with no improvement in pain. She is 20 weeks at today's evaluation. ROS: Denies fevers, chills, and other constitutional symptoms. Denies shortness of breath. Patient History History reviewed. No pertinent surgical history. Past Medical History: Diagnosis Date Anxiety Objective General: Body mass index is 26.57 kg/m???. There were no vitals filed for this visit. No acute distress, comfortable Respiratory: Unlabored breathing with normal rate, no cough Cardiovascular: Warm well perfused extremities Psych: Appropriate mood behavior right knee exam: Inspection- Effusion: moderate Palpation- Patellar tendon: not tender Quad tendon: not tender Patella: Stable, No crepitus ROM: 90-160 degrees Meniscal exam- Medial joint line: tender Lateral joint line: not tender Natalee: negative medial, lateral Stability- ACL: Marko negative Collateral Ligaments: Stable to varus and valgus stress at 0 and 30 degrees PCL: Posterior drawer negative Strength Quadriceps: 5/5 Imaging: We have personally reviewed the following images and our independent interpretation is as follows: MRI of left knee taken in October of 2022 which shows bony contusion over lateral femoral condyle consistent with knee dislocation. No other acute soft tissue or bony pathology noted. Assessment/Plan Priyanka Hardin is a 28 y.o. year old female with Sprain of left knee, unspecified ligament, initial encounter Discussed the nature of the disease as well as treatment options including conservative vs surgical interventions Conservative interventions including: Physical therapy, ice, rest, and elevation -C9 for PT specifically to target lateral retinaculum stretching and L hip external rotator strengthening -C9 for dx patellar tracking disorder -C9 for dx recurrent left knee instability -C9 for aspiration of L knee -Return to clinic for aspiration when able By using the attestations below, the signing clinician agrees that I have read and verify that the documentation has been personally reviewed by me and ensure that the documentation accurately reflects the encounter. GC: I personally saw this patient on the day of the encounter, performed the dougherty portion(s) of the service and participated in the management and confirm the resident's documentation. Please note there may be an additional personal documentation from me. [facility] 11-13-2022 Note HNO ID: [id number] Author: RT Jarad(R) Service: ? Author Type: Technologist Type: Progress Notes Filed: 11/13/2022 9:43 AM Note Text: Radiology Service Progress Note PATIENT NAME: Priyanka Hardin DATE OF SERVICE: November 13, 2022 TIME: 9:43 AM PATIENT IDENTITY VERIFICATION COMPLETED USING TWO (2) IDENTIFIERS: Name and Date of confirmed by patient verbally. FALL SCREENING: Has the patient had 2 falls in the last year or 1 fall with injury or currently using an Ambulatory Assistive Device (Walker, Cane, Wheelchair, Crutches, etc.)? No PATIENT GENDER DATA: Female. status: : No status: NO. PATIENT RELEVANT IMPLANT DATA REVIEWED: Not Applicable RADIOLOGY DEPARTMENT: General X-ray: Exam(s) Completed: Lower Extremity X-Ray(s): Knee, AP / Lat / Tunne / Merchant Left and Wt. Bearing PERIPHERAL IV DATA: Not applicable SIGNED BY: RT Jarad(R) November 13, 2022 9:43 AM [facility] 09-06-2022 Note PROCEDURE: XR KNEE L T 4V or > HISTORY: Pain in left knee ; acute COMPARISON: None. FINDINGS: BONES:No fracture, acute abnormality, or significant arthropathy. SOFT TISSUES:No visible soft tissue swelling. EFFUSION:None visible. OTHER: Negative. IMPRESSION: 1. Normal examination. Electronically authenticated by: BRYAN ESPINO Date: 2022-09-06 13:41 [facility] 07-03-2022 Discharge summary Note Date/Time July 03, 2022 11:08am [facility] [address] [place] [address] Discharge Summary Signed Patient: Priyanka Hardin MR#: [id number] : 1995 Acct:[id number] Age/Sex: 27 / F Adm Date: 2 Loc: Room: [address] [place] [address]: Kyle Pepe MD Copies to: MD Shannon Gillespie MD~ Providers Date of Discharge: 07/03/22 Discharging Provider: Kyle Pepe Primary Care Provider: Shannon Glez Consults: 06/30/22 03:27 Consult to Case Management Routine Discharge Diagnosis (1) Suicide attempt by drug overdose: (2) Suicidal ideation: (3) Anxiety: Final Diagnosis Final Discharge Diagnosis: MDD, recurrent Summary Hospital Course Hospital course: According to admission note: Ms. Hardin is a 27 year old female that [facility]. Patient states she took 6 Motrin pills and called emergency services immediately after as she became afraid of what would happen.? Patient endorses suicidal ideation with multiple plans and history of self-harm by scratching herself.? She endorses several life stressors and statesher best friend of 13 years is no longer her friend.? She states her boyfriend is a good support system and waited in the emergency room with her last night.? Patient states she has had depression and anxiety on and off for years.? She reports history of paranoia and constantly feels like everyone is watching her talking about her.? When asked how she is feeling patient says tired and states she wants to feel better.? Patient was previously on Abilify, Lamictal, Latuda but did not take consistently and states she did not feel like they helped.? She last took medications in November. She sees Psych nurse practitioner and the therapist at [facility] in [place].Patient states she has been diagnosed with generalized anxiety disorder in the past.? She states her doctor is working her up for unspecified bipolar disorder.? Patient does endorse some manic symptoms but states they only last for short period of time. Past psych history: Anxiety, some discussion about possible bipolar diagnosis Past hospitalizations: Denies Past suicide attempts: Denies Previous medications: She was previously on Lamictal Latuda and Abilify.? She has also tried Zoloft in the past Medical history: Migraines Alcohol and drug use: Occasional social alcohol use Abuse/Childhood trauma: Reports childhood trauma Living: With boyfriend Employment: [employer] Patient was started on Cymbalta. She tolerated the medication without any problems and did not report any side effects. Her depression improved during hospitalization and she no longer reported any suicidal ideation. She did not exhibit any behavior concerning for suicidality. She did not have a complicatedstaff. She was visible in the common area and often seem to be in good spirits and socializing appropriately. She attended groups and learn coping skills during hospitalization. On the day of discharge she reported she is feeling better. She denied any depression or suicidality. She was comfortable discharge plan home and stated that she follow-up with outpatient services. Time spent discussing smoking cessation with patient: 3 to 10 minutes Condition Condition at Discharge: Stable Status at Discharge Cognitive/behavioral status at discharge: Mental Status Exam: Appearance: grossly normal Mental Status: mental status grossly normal Mood: Euthymic mood Affect: Normal affect Speech and Movement: speech and movement normal and speech clear Attitude: cooperative Thought Process: normal Thought Content: Denied hallucinations, no homicidality and no suicidality Insight: Good Judgment: Good Functional status at discharge: independent ambulation Overall status at discharge: patient is back to baseline Time Spent with Patient Time spent providing/coordinating discharge services (# min): 30 Exam Physical Exam Vital Signs: Temp Pulse Resp BP Pulse Ox O2 Del Method 97.8 F 93 H 16 120/81 98 Room Air 07/03/22 07:30 07/03/22 07:30 07/03/22 07:30 07/03/22 07:30 07/03/22 07:30 07/03/22 09:00 Discharge Plan Discharge Plan Patient Disposition: Home Activity: No Activity Restriction Diet: Regular Additional Instructions: Regular diet. No activity restrictions. Instructions: Anxiety, Adult (DC), [facility] Behavioral Health DC Instructions Stand Alone Forms: Work/School Release Form Prescriptions: New trazodone 50 mg Tablet 50 mg PO QHS PRN (Reason: Insomnia) Qty: 30 0RF duloxetine 30 mg Capsule,Delayed Release(Dr/Ec) 30 mg PO QHS 30 Days Qty: 30 0RF Continued Ajovy Autoinjector 225 mg/1.5 mL Auto-Injector 225 mg SUBCUT QWEEK Follow Up: Pending Sale To [facility] [Outside] [facility] [Outside] - 07/07/22 10:45 am (Psychiatry: 07/07/22 @ 10:45am with Fiona Grier CNP Therapy: Sunday07/14/22 @ 11:00am with [place] ) Documented By: Kyle Pepe MD 07/03/22 1106 Signed By: <Electronically signed by Kyle Pepe MD> 07/03/22 9262 [facility] Work Phone: 1(967) 585-331610-30-2022 Progress note Author Kyle Pepe [facility] July 02, 2022 12:56pm Note Date/Time July 02, 2022 1 2:55pm [facility] [address] [place] [address] Psychiatry Progress Note Signed Patient: Priyanka Hardin MR#: [id number] : 1995 Acct:[id number] Age/Sex: 27 / F Adm Date: 2 Loc: Room: [address] [place] [address] Type : ADM IN Attending Dr: Kyle Pepe MD Copies to: ~ Date of Service: 07/02/2022 Subjective Subjective Narrative: Ms. Hardin reported that she is doing okay. She reported that she slept fairly well last night. She denied any side effects from current medications. She denied any suicidal thoughts at this time. She stated that she lives with her boyfriend but her mom would be able to pick her up. Mental Status Exam: Appearance: grossly normal Mental Status: mental status grossly normal Mood: Euthymic mood Affect: Normal affect Speech and Movement: speech and movement normal and speech clear Attitude: cooperative Thought Process: normal Thought Content: Denied hallucinations, no homicidality and no suicidality Insight: Good Judgment: Good Exam Physical Exam Vital Signs: Temp Pulse Resp BP Pulse Ox O2 Del Method 98.8 F 67 16 98/64 L 99 Room Air 07/02/22 07:30 07/02/22 07:30 07/02/22 07:30 07/02/22 07:30 07/01/22 19:56 07/01/22 19:56 Assessment/Plan Assessment/Plan (1) Suicide attempt by drug overdose: Code(s): T50.902A - Poisoning by unspecified drugs, medicaments and biological substances, intentional self-harm, initial encounter Status: Acute (2) Suicidal ideation: Code(s): R45.851 - Suicidal ideations Status: Acute (3) Anxiety: Code(s): F41.9 - Anxiety disorder, unspecified Status: Acute Plan Patient doing better at this time. Reported that her mood has been stable Anticipate discharge tomorrow Continue Cymbalta 30 mg daily Monitor suicidal behaviors for safety of self (15-minute face check) Recommend attending groups and psychoeducation for building coping skills Risks, benefits and indications of medications were discussed with the patient Documented By: Kyle Pepe MD 07/02/221253 Signed By: <Electronically signed by Kyle Pepe MD> 07/02/224 [facility] Work Phone: 1(422) 620-807510-29-2022 Progress note Author Kyle Pepe [facility] July 01, 2022 12:46pm Note Date/Time July 01, 2022 9 :01am [facility] [address] [place] [address] Psychiatry Progress Note Signed Patient: Priyanka Hardin MR#: [id number] : 1995 Acct:[id number] Age/Sex: 27 / F Adm Date: 2 Loc: Room: 4Q2555-8 Type : ADM IN Attending Dr: Kyle Pepe MD Copies to: ~ Date of Service: 07/01/2022 Subjective Subjective Narrative: Ms. Hardin is states she is doing well today. Patient reports her depression andanxiety have improved and rates her depression a 1/10. Denies current suicidal thoughts. She was started on Cymbalta 30 mg yesterday and has been taking medication appropriately and denies side effects. Patient has been attending group therapy and mingling with other patients. She reports her appetite has been fine and she has been sleeping well. Mental status exam Appearance: Grossly normal, good hygiene, appropriate eye contact Mental status: Mental status grossly normal Mood: Dysthymic Affect: Flat affect Speech and movement: Speech and movement normal and speech clear Attitude: Cooperative, pleasant Thought process: Normal, linear, goal oriented Thought content: Denies hallucinations no homicidality and no suicidality Insight: Fair Judgment: Fair Patient was personally seen by me on the day of the encounter. I reviewed the history and performed the dougherty elements of the physical examination. I formulated the plan of care and confirmed this with the resident as noted below. Patient reported that she is tolerating the medications. She reported that her depression has been improving and is usually not too bad when she is around a lot of people. She currently lives at home with her boyfriend which she stated is safe and supportive. She stated that she slept okay overnight with trazodone. Denied any suicidality. Exam Physical Exam Vital Signs: Temp Pulse Resp BP Pulse Ox O2 Del Method 97.9 F 87 16 117/80 97 Room Air 07/01/22 07:30 07/01/22 07:30 07/01/22 07:30 07/01/22 07:30 07/01/22 07:30 07/01/22 07:30 Assessment/Plan Assessment/Plan (1) Suicide attempt by drug overdose: Code(s): T50.902A - Poisoning by unspecified drugs, medicaments and biological substances, intentional self-harm, initial encounter Status: Acute (2) Suicidal ideation: Code(s): R45.851 - Suicidal ideations Status: Acute (3) Anxiety: Code(s): F41.9 - Anxiety disorder, unspecified Status: Acute Plan Patient reports improvement in anxiety and depression and rates her anxiety 2/10. Denies current suicidal thoughts. She has been attending group therapy. She follows with outpatient counseling at [facility]. Continue Cymbalta 30 mg daily Monitor suicidal behaviors for safety of self (15-minute face check) Recommend attending groups and psychoeducation for building coping skills Risks, benefits and indications of medications were discussed with the patient Documented By: Areli Barbosa DO RES 07/01/22 0901 Signed By: <Electronically signed by DO CHERRY Barbosa> 07/01/22 1041 <Electronically signed by Kyle Pepe MD> 07/01/22 1246 [facility] Work Phone: [phone] History and physical note Author Kyle Pepe [facility] June 30, 2022 4:32pm Note Date/Time June 30, 2022 9 :25am [facility] [address] [place] [address] Psychiatry H&P Signed Patient: Priyanka Hardin MR#: [id number] : 1995 Acct:[id number] Age/Sex: 27 / F Adm Date: 2 Loc: Room: [address] [place] [address] Type: ADM IN Attending Dr: Kyle Pepe MD Copies to: MD Shannon Gillespie MD, DO, RES~ Date of Service: 06/30/2022 HPI History of Present Illness History of present illness: Ms. Hardin is a 27 year old female that was admitted to [facility] for attempted overdose. Patient states she took 6 Motrin pills and called emergency services immediately after as she became afraid of what would happen. Patient endorses suicidal ideation with multiple plans and history of self-harm by scratching herself. She endorses several life stressors and states her best friend of 13 years is no longer her friend. She states her boyfriend is a good support system and waited in the emergency room with her last night. Patient states shehas had depression and anxiety on and off for years. She reports history of paranoia and constantly feels like everyone is watching her talking about her. When asked how she is feeling patient says tired and states she wants to feel better. Patient was previously on Abilify, Lamictal, Latuda but did not take consistently and states she did not feel like they helped. She last took medications in November. She sees Psych nurse practitioner and the therapist at [facility].Patient states she has been diagnosed with generalized anxiety disorder in the past. She states her doctor is working her up for unspecified bipolar disorder. Patient does endorse some manic symptoms but states they onlylast for short period of time. Past psych history: Anxiety, some discussion about possible bipolar diagnosis Past hospitalizations: Denies Past suicide attempts: Denies Previous medications: She was previously on Lamictal Latuda and Abilify. She has also tried Zoloft in the past Medical history: Migraines Alcohol and drug use: Occasional social alcohol use Abuse/Childhood trauma: Reports childhood trauma Living: With boyfriend Employment: [employer] Mental status exam Appearance: Grossly normal Mental status: Mental status grossly normal Mood: Dysthymic Affect: Flat affect Speech and movement: Speech and movement normal and speech clear Attitude: Cooperative Thought process: Normal Thought content: Denies hallucinations no homicidality and no suicidality Insight: Fair Judgment: Fair Review of systems: Constitutional: Denies chills and denies fevers Eyes: Denies changes in vision ENT: Denies abnormal hearing Cardiovascular: Denies chest pain Respiratory: Denies chest congestion and cough Gastrointestinal: Denies changes in bowel movements Genitourinary: Denies dysuria Musculoskeletal: Denies myalgias Integumentary: Denies dry skin Neurologic: Denies abnormal gait denies abnormal movements Psychiatric: Denies depression, denies suicidal ideation, denies homicidal ideation Physical exam: General: No acute distress, comfortable, cooperative Nutritional: Normal weight Orientation: Alert, awake, oriented x3 Head: Normocephalic, atraumatic, hearing grossly normal bilaterally Eyes: No scleral icterus, conjunctive a normal, pupils equal Neck: Normal to visual inspection and full range of motion Respiratory: Speaking in complete sentences, no distress, symmetric chest rise Cardiovascular: Regular rate Skin: Intact, no rash, no trauma Neuro: Cranial nerves grossly intact, no focal deficit CNII: Visual walter intact CNIII,IV,: EOM intact, no nystagmus. Pupils equal, round, reactive to light and accommodation. CNV: Sensation intact to light touch. CNVII: Raises eyebrows, smile/frown, puff out cheeks symmetrically. CNVIII: Hearing intact bilaterally. CNIX,X: Voice normal, soft palate elevation normal, symmetrical. CNXI: Shoulder shrug strong, equal bilaterally. CNXII: Tongue protrusion midline, movement symmetrical. Psychiatric: Flat affect Patient was personally seen by me on the day of the encounter. I reviewed the history and performed the dougherty elements of the physical examination. I formulated the plan of care and confirmed this with the resident as noted below. Patient presenting due to concern for depression and suicidal ideation. She does report being on medications in the past that she stated were not helpful. She does not report any sustained periods of obie in the past. She is open to medications at this time. She reported that she saw neurologist in the past andhas been diagnosed with anxiety induced migraines. PMFSH Vaccinated for COVID-19?: No Medical History (Updated 06/30/22 @ 12:10 by Areli Barbosa DO, RES) No pertinent past medical history Surgical History H/O dilation and curettage Family History (Updated 06/30/22 @ 01:55 by Mary Gong RN) Other No significant family history Social History Smoking Status: Never smoker Substance Use Type: Marijuana Meds Medications and Allergies Allergies No Known Allergies Allergy (Verified 06/30/22 00:24) Home Medications fremanezumab-vfrm 225 mg/1.5 mL subcutaneous auto-injector (Ajovy) 225 mg subcutQWEEK 06/30/22 [History Confirmed 06/30/22] Exam Physical Exam Vital Signs: Temp Pulse Resp BP Pulse Ox O2 Del Method 97.8 F 55 L 18 100/61 98 Room Air 06/30/22 07:30 06/30/22 07:30 06/30/22 07:30 06/30/22 07:30 06/30/22 07:30 06/30/22 07:30 Assessment/Plan (1) Suicide attempt by drug overdose: Code(s): T50.902A - Poisoning by unspecified drugs, medicaments and biological substances, intentional self-harm, initial encounter Status: Acute (2) Suicidal ideation: Code(s): R45.851 - Suicidal ideations Status: Acute (3) Anxiety: Code(s): F41.9 - Anxiety disorder, unspecified Status: Acute Plan Patient admitted for attempted overdose. Denies suicidal thoughts at the moment. Patient states her doctor is working her up for possible bipolar diagnosis. Patient has questionable manic episodes but the sound like they onlylast 1 day. Does not seem to meet criteria for manic episode at this time We will start Cymbalta 30 mg at bedtime Admit to for management of depression to ensure safety due to SI Monitor suicidal behaviors for safety of self (15-minute face check) Recommend attending groups and psychoeducation for building coping skills Risks, benefits and indications of medications were discussed with the patient No abnormal movements noted on exam. AIMS is 0 Documented By: Areli Barbosa DO, RES 06/30/22 0922 Signed By: <Electronically signed by RES Areli Barbosa> 06/30/22 1211 <Electronically signed by Kyle Pepe MD> 06/30/22 1632 [facility] Work Phone: [phone]) 845-613708-02-2022 NotePROCEDURE: XR WRIST LT MIN 3 V HISTORY: Bone injury ; acute left wrist pain after falling COMPARISON: None. FINDINGS: BONES:No fracture, acute abnormality, or significant arthropathy. SOFT TISSUES:No visible soft tissue swelling. EFFUSION:None visible. OTHER: Negative. IMPRESSION: 1. No acute bone abnormality. Electronically authenticated by: BRYAN ESPINO Date: 2022-04-04 14:16[facility] Onset Date Resolution Status Anxiety acute Suicidal ideation acute Suicide attempt by drug overdose acute [facility] Work Phone: Hospital Discharge instructions Additional Instructions Regular diet. No activity restrictions.[facility] Work Phone: Summary Purpose Family History No Family History Records Found Relationship Condition Age at Onset Recorded Date/T bette Not Specified No pertinent family history Unknown Advance Directives No Advanced Directives Records Found Advance Directive Response Recorded Date/ Time Advance Directives No June 29, 2022 10:30pm Chief Complaint and Reason for Visit Chief Complaint Bipolar Reason for Visit Anxiety Suicidal ideation Suicide attempt by drug overdose Additional Source Comments INFORMATION SOURCE (unrecogn ized section and content) DATE CREATED AUTHOR 07/03/2022 [facility] DATE CREATED AUTHOR AUTHOR'S ORGANIZ ATION 10/12/2022 [facility] DATE CREATED AUTHOR AUTHOR'S ORGANIZ ATION 11/15/2022 [facility] DATE CREATED AUTHOR AUTHOR'S ORGANIZ ATION 06/09/2023 [facility] DATE CREATED AUTHOR AUTHOR'S ORGANIZ ATION 06/10/2023 Rex Ramos [facility] DATE CREATED AUTHOR AUTHOR'S ORGANIZ ATION 09/06/2023 [facility] Care Teams (unrecognized sec tion and content) Team Status: Inactive Member Role Status Dates Shannon Glez MD Primary Care Provider Active Kyle Pepe MD Admit Provider, Attending Provider Active Team Status: Active Member Role Status Dates Shannon Glez MD Primary Care Provider Active FOR RECORDS PERTAINING TO PATIENTS WHO ARE OR HAVE BEEN ENROLLED IN A CHEMICAL DEPENDENCY/SUBSTANCEABUSE PROGRAM, SOME INFORMATION MAY BE OMITTED. This clinical summary was aggregated from multiple sources. Caution should be exercised in using it in the provision of clinical care. This summary normalizes information from multiple sources, and as a consequence, information in this document may materially change the coding, format and clinical context of patient data. In addition, data may be omitted in some cases. CLINICAL DECISIONS SHOULD BE BASED ON THE PRIMARY CLINICAL RECORDS. [facility] provides no warranty or guarantee of the accuracy or completeness of information in this document.
--- NOTE | 2023-09-09 12:30 | PM.OBHP ---
OB - H&P: HPI History of Present Illness Chief complaint: 39 weeks, contractions : 2 Para: 0 Date of last menstrual period: LMP AGREES WITH 8 WEEK OB ULTRASOUND TO CONFIRM ED Gestational age based on last menstrual period: HOLDEN 09/12/23 EGA 39.4 Indications for induction: other Narrative: SROM, THICK MECONIUM History of Present Dating criteria: LMP confirmed by 1st trimester US care: good care Ultrasounds: normal 1st trimester US and normal mid trimester US Medical complications OB: none Labs Blood type: O (+) positive Rubella: immune RPR/VDLR: nonreactive GBS status: negative HBsAG: negative Narrative: HAD CT IN NOVEMBER 2022, HAD D AND C FOR BLIGHTED OVUM Review of Systems ROS PRESENTED WITH GROSS SROM, THICK MECONIUM, WAS A SCHEDULED INDUCTION FOR UPCOMING WEEK Status of ROS: 10 or more systems reviewed and unremarkable except as noted in history and below [facility] Social History Smoking status: Current every day smoker Meds Home Medications and Allergies Home Medications Medication Instructions Recorded Confirmed Type omeprazole 20 mg capsule,delayed 20 mg PO DAILY 09/09/23 09/09/23 History release vits no.130-ferrous fum 1 tab PO DAILY 09/09/23 09/09/23 History 27 mg iron-folic acid 800 mcg tablet ( Vitamin) Allergies Allergy/AdvReac Type Severity Reaction Status Date / Time No Known Drug Allergies Allergy Verified 03/08/23 16:25 Exam Constitutional Documenting provider has reviewed patient's vital signs: yes Common normals: no apparent distress, average body habitus, oriented x3, no limitations, healthy appearing and alert General appearance: cooperative and comfortable Orientation/consciousness: Yes awake, Yes oriented to person, Yes oriented to place and Yes oriented to time HENMT Common normals: normocephalic and head/scalp atraumatic Eye Pupil: PERRL and accommodation reflex normal Neck & C-Spine Common normals: full ROM and no meningeal signs Respiratory Common normals: normal respiratory effort and no retractions Cardio Common normals: regular rate and regular rhythm GI Common normals: Normal to inspection, nondistended, normoactive bowel sounds present, soft to palpation and non-tender Common normals: no CVA tenderness Back & Pelvis Common normals: thoracic and lumbar spine normal to inspection Extremity Common normals: normal to inspection, full ROM and no calf tenderness Neuro Common normals: CN's II-XII intact bilaterally, moves all extremities, no focal motor deficits and no sensory deficits noted Sensorium/orientation: awake, alert, oriented to person, oriented to place and oriented to time Psych Common normals: mental status grossly normal, thought process normal, cooperative, affect normal and speech normal OB - A/P Assessment and Plan (1) SROM (spontaneous rupture of membranes): Assessment and Plan: ADMIT FOR LABOR, GBS NEGATIVE (2) Meconium in amniotic fluid: Assessment and Plan: IN LATENT PHASE LABOR PRESENTLY, WANTS TO AVOID EPIDURAL IF ABLE (3) Uterine contractions: Assessment and Plan: TERM , LATENT PHASE, WILL NOT AUGMENT UNLESS INDICATED (4) Vaginal discharge during , antepartum: Assessment and Plan: WILL DO VAGINAL CULTURE FOR BACTERIA APPEARANCE NOT CLEAR BUT BROWN TINGED. LIKELY OLD BLOOD OR MECONIUM HOWEVER WANT DOCUMENTATION Plan ADMIT FOR LABOR PIT AUGMENATION IF INDICATED VAGINAL CULTURE FOR BACTERIA GBS NEGATIVE WOULD LIKE TO AVOID EPIDURAL IF ABLE TO
[2023-09-09 12:58] LABS: Basophils Percent Auto 0.2 % (0.2-2.0); Eosinophils Absolute Auto 0.1 10^3/uL (0.0-0.7); Eosinophils Percent Auto 0.5 % (0.9-7.0); Hematocrit 32.2 % (36.0-48.0); Hemoglobin 10.9 g/dL (12.0-16.0); Immature Granulocytes Abs Auto 0.09 10^3/uL (0.00-0.03); Immature Granulocytes Pct Auto 0.5 % (0.0-0.5); Lymphocytes Absolute Auto 1.4 10^3/uL (1.2-3.8); Lymphocytes Percent Auto 7.8 % (20.5-60.0); Mean Corpuscular HGB Conc 33.9 g/dL (29.9-35.2); Mean Corpuscular Hemoglobin 29.8 pg (26.7-34.0); Mean Platelet Volume 10.4 fL (9.5-13.5); Monocytes Absolute Auto 1.2 10^3/uL (0.3-0.8); Neutrophils Absolute Auto 14.8 10^3/uL (1.4-6.5); Platelet Count 268 10^3/uL (150-450); Red Blood Count 3.66 10^6/uL (4.20-5.40); Red Cell Distribution Width 13.1 % (11.0-15.0); White Blood Count 17.6 10^3/uL (4.0-11.0)
[2023-09-09 13:06] LABS: Amphetamine Screen Urine NEGATIVE (NEGATIVE); Barbiturates Screen Urine NEGATIVE (NEGATIVE); Benzodiazepines Screen Urine NEGATIVE (NEGATIVE); Buprenorphine Screen Urine NEGATIVE (NEGATIVE); Cannabinoid Screen Urine NEGATIVE (NEGATIVE); Cocaine Screen Urine NEGATIVE (NEGATIVE); Methadone Screen Urine NEGATIVE (NEGATIVE); Methamphetamines Screen Urine NEGATIVE (NEGATIVE); Opiate Screen Urine NEGATIVE (NEGATIVE); Oxycodone Screen Urine NEGATIVE (NEGATIVE); Phencyclidine Screen Urine NEGATIVE (NEGATIVE); Tricyclic Antidepressant Urine NEGATIVE (NEGATIVE)
[2023-09-09] MEDS: 0.9 % SODIUM CHLORIDE 1,000 ML 125 ML IV ×3 (18:55→21:14)
[2023-09-09] MEDS: ROPIVACAINE HCL/PF 400 MG/200 ML PREMIX 6 MG EPIDURAL (20:55)
--- NOTE | 2023-09-09 21:09 | PM.OBPN ---
OB - PN: Subj Subjective Interval history: This 28 year old presented this am with SROM and thick meconium. She was a scheduled induction for next week. At the initial evaluation, SROM was confirmed. In addition she had a vaginal discharge which was copious, brown wren mucoid in appearance though not foul smelling. Her GBS is neg. The heart tracing through most of the day has been CAT I. However, I was called by Karon when the patient was observed to have a low grade temp, she was flushed, and the tracing was demonstrating variables with accels however the baseline has significantly shifted upwards from 120 - 130's to 150's to 160's. Her contractions are every 2 min to five min and pitocin is not running. Her epidural was just placed. On my exam her cervix is 5 - 6 cm / 75 % / -1/ posterior/vertex. Even if pitocin is begun, she is remote from delivery and I am concerned chorioamnionitis is present as evidenced by maternal low grade temp, elevated WBC and significant rise in the baseline though it remains a CAT I. I discussed my findings and impressions with the patient and her . They understand that even if pitocin was started to augment labor, and the baby tolerated pitocin which is an unknown, we are likely many hours from delivery. My concern is that the baby will become impacted negatively by prolonged exposure to bacteria if chorio is present as I believe and the safest plan is to proceed with primary LTCS within the hour of being called. The patient and her stated understanding and agreement with plan and voiced no concerns or questions. Of note, the patient just prior to my arrival reported that she was naseous and vomited and just did not feel well . Patient comments: other (complains of nausea, vomiting and just doesn't feel well ) infant status: other (baby not born yet, tracing though reactive has demonstrated a marked increase in baseline in presence of low grade temp in mom and elevated WBC all concerning for chorioamnionitis) Exam Constitutional Vital Signs, click to edit/add: Last Vital Signs Temp 98.8 F 09/09/23 20:26 Pulse 105 H 09/09/23 21:06 Resp 18 09/09/23 20:26 BP 138/80 09/09/23 21:06 Pulse Ox 99 09/09/23 20:26 O2 Del Method Room Air 09/09/23 12:00 Documenting provider has reviewed patient's vital signs: yes Common normals: oriented x3 General appearance: other (mother reports not feeling well, has nausea and vomiting has low grade temp) Orientation/consciousness: Yes awake HENMT Common normals: normocephalic and head/scalp atraumatic Eye Pupil: PERRL and accommodation reflex normal Neck & C-Spine Common normals: full ROM and supple Respiratory Common normals: normal respiratory effort Cardio Common normals: regular rate and regular rhythm GI Common normals: soft to palpation and non-tender Common normals: no CVA tenderness Back & Pelvis Common normals: no thoracic nor lumbar tenderness Extremity Common normals: normal to inspection, full ROM and no calf tenderness Neuro Common normals: CN's II-XII intact bilaterally, moves all extremities, no focal motor deficits and no sensory deficits noted Psych Common normals: mental status grossly normal, thought process normal and cooperative Attitude: calm and engaged Speech: normal speech Mood and affect: euthymic mood Thought process: normal thought process Thought content: normal thought content Insight: insight good Judgement: judgment good Results Labs Labs: Short CBC 09/09/23 Range/Units 12:30 WBC 17.6 H (4.0-11.0) 10^3/uL Hgb 10.9 L (12.0-16.0) g/dL Hct 32.2 L (36.0-48.0) % Plt Count 268 (150-450) 10^3/uL OB - PN: A/P Assessment and Plan (1) SROM (spontaneous rupture of membranes): Assessment and Plan: GBS negative, thick meconium, in labor (2) Meconium in amniotic fluid: Assessment and Plan: Orthopedic Shoe Maker informed, continuous monitoring (3) Uterine contractions: Assessment and Plan: transitioning from latent to active phase labor likely, however not in good labor pattern, did request epidural (4) Vaginal discharge during , antepartum: Assessment and Plan: mom developed low grade temp, baby has had a marked increase in baseline, mom flush with nausea and vomiting, concerned chorioamnionitis present, remote from delivery even if pitocin was started and tolerated Plan Will proceed with a Class B primary LTCS. Dr. Mathews on his way. Surgical team en route. Anesthesia notified. Time Spent with Patient Time: Total time spent is greater than 50% in coordination of care (as documented) at patient's floor/unit and/or counseling patient: Total time spent with greater than 50% in coordination of care (as documented) at patient's floor/unit and/or counseling patient: 25 - 35 minutes
[2023-09-09] MEDS: FAMOTIDINE/PF 20 MG/2 ML VIAL IV (21:45)
[2023-09-09] MEDS: METOCLOPRAMIDE HCL 10 MG/2 ML VIAL IVP (21:45)
[2023-09-09] MEDS: CITRIC ACID/SODIUM CITRATE 30 ML SOLUTION ORACIT SHOHL'S SOLN PO (21:45)
[2023-09-09] MEDS: CEFAZOLIN SODIUM/DEXTROSE,ISO 2 GM/50 ML PIGGYBACK IV (22:10)
[2023-09-09] MEDS: LACTATED RINGER'S SOLUTION 1,000 ML 50 ML IV ×2 (22:30→23:07)
--- NOTE | 2023-09-09 23:04 | P.OBPRC_ITS ---
Procedure Pre-op/Post-op diagnoses: Pre-Op/Post-Op Diagnoses Operation Date: 09/09/23 22:00 <No data on this case meets the specified criteria> Procedure: Procedures Operation Date: 09/09/23 22:00 Actual Procedure Side Surgeon p with delivery of viable baby girl Not Applicable Niharika Dickerson MD Aircraft Electrician: Monie Danielson Estimated blood loss (mL): 500 Disposition: floor Anesthesia type: Epidural Complications: NONE Narrative: PATIENT HAD LUJAN AND OR PERINEAL PREP IN ROOM. SHE WAS BROUGHT TO OR, POSITIONED IN SUPINE POSITION WITH WEDGE UNDER RIGHT FLANK. MONITORS WERE PLACED, THE EPIDURAL WAS DOSED AND HEART TONES WERE ASSESSED. PATIENT WAS PREPPED AND DRAPED IN STERILE FASHION. TIME OUT WAS PERFORMED. A PFANNENSTIEL SKIN INCISION WAS MADE 2 FB'S ABOVE THE PUBIC BONE AND THIS INCISION WAS CARRIED DOWN TO THE FASCIA. THE FASCIA WAS NICKED IN THE MIDLINE WITH THE SCALPEL AND THE OPENING WIDENED TO THE FULL EXTENT OF THE SKIN INCISION WITH THE OLVERA SCISSORS. THE SUPERIOR AND INFERIOR FASCIAL BORDER WAS DISECTED AWAY FROM THE MUSCLE WITH THE BOVIE ON 40 CUTTING CURRENT AND BLUNT DISECTION. THE HEMOSTAT WAS USED TO SEPARATE THE RECTI, THE PERITONEUM WAS TENTED AND OPENED WITH THE TIPS OF THE HEMOSTAT AND BLUNTLY OPENED WITH THE FINGER. THIS OPENING WAS WIDENED MANUALLY AND THE BLADDER BLADE WAS POSITIONED. THE BLADDER WAS SAFELY UNDER THE BLADE AND THE LOWER UTERINE SEGMENT WAS INCISED TWO INCHES AND THIS OPENING WAS MANUALLY WIDENED. MECONIUM STAINED FLUID WAS OBSERVED. THERE WAS NO NUCHAL CORD. THE BABY WAS LARGE AND A VACUUM SUCTION NEEDED TO BE APPLIED T IMES ONE TIME. IT WAS POSITIONED IN THE MIDLINE ANTERIOR TO THE POSTERIOR FONTANELLE AND POSTERIOR TO THE ANTERIOR FONTANELLE AND THE HEAD WAS DELIVERED WITH ONE GENTLE TRACTION AND FUNDAL PRESSURE. THE SHOULDERS AND TORSO WERE THEN DELIVERED. THE WAS A SINGLE CRY THE UMBILICAL CORD WAS DOUBLY CLAMPED AND CUT. THE BABY WAS HANDED TO THE RN FOR THE HAND COOPER HELPER TO ASSESS IN THE OR. SEE THEIR RECORDS FOR THE SCORES OF 7 AND 9. A SAMPLE OF CORD WAS OBTAINED. CORD BLOOD WAS OBTAINED. THE PLACENTA WAS MANUALLY REMOVED INTACT AND SENT TO PATHOLOGY. THE INSTRUMENT, LAP SPONGE AND NEEDLE COUNT WERE CORRECT TIMES TWO. THE UTERUS WAS EXTERNALIZED AND THE HYSTEROTOMY WAS CLOSED IN A SINGLE LAYER USING O VICRYL SUTURE AND RUNNING LOCKED STITCH. DISCRETE BLEEDING POINTS WERE OVER SEWN WITH A MATTRESS STITCH OF THE SAME SUTURE. THE POSTERIOR CUL DE SAC WAS IRRIGATE AND SUCTION EVACUATED WERE THE LATERAL GUTTERS. THE ANTERIOR CUL DE SAC WAS ASSESSED AND CLEARED OF CLOT. THE UTERUS WAS RETURNED TO ITS NORMAL ANATOMIC POSITION AND REASSESSED. THE SURGICAL CLOSURE WAS HEMOSTATIC. COAGULATION POWDER WAS SPRINKLED OVER THE SURGICAL CLOSURE OF THE UTERUS. THE AMOUNT IN THE SMALL CONTAINER WAS USED. THE FASCIA WAS CLOSED WITH O VICRYL WITH A RUNNING STITCH LOCKING THE FIRST AND LAST STITCH. THE SUB CU FAT WAS CLOSED WITH 3 - 0 VICRYL USING SIMPLE INTERRUPTED STITCHES. THE SKIN WAS CLOSED WITH 4 - 0 VICRYL USING A SUBCUTICULAR STITCH. STERI STRIPS AND A STERILE DRESSING WAS APPLIED. THE PATIENT WAS BROUGHT BACK TO [facility] FOR RECOVERY IN HEMODYNAMICALLY STABLE CONDITION.
[2023-09-09] MEDS: BUPIVACAINE LIPOSOME/PF 266 MG/13.3 ML VIAL INJ (23:20)
[2023-09-09] MEDS: 0.9 % SODIUM CHLORIDE 10 ML VIAL IV (23:20)
[2023-09-09] MEDS: BUPIVACAINE HCL 0.5% PF 50 MG/10 ML VIAL INJ (23:20)
[2023-09-09] MEDS: OXYTOCIN/0.9 % SODIUM CHLORIDE 20 UNITS/1,000 ML PLAST..BAG 125 UNIT IV (23:48)
[2023-09-10] VITALS (37 sets, daily range): BP systolic 93–132; BP diastolic 50–81; PULSE 81–103; RESP 7–25; TEMP 36.2–38.2; O2SAT 97–99
--- NOTE | 2023-09-10 00:30 | PC.NURSE ---
Pt received a tap block procedure following section for pain control per PERSONAL DEVELOPMENT COACH. When RN received report, PERSONAL DEVELOPMENT COACH states pt feeling more numb is to be expected. Pt has feeling at umbilicus but was unable to feel touch at the thigh level.
--- NOTE | 2023-09-10 01:48 | PC.NURSE ---
Celia-care completed at this time. Pads changed. Pt able to lift in bottom when changing pads. Pt moving lower extremities at this time. Pt states her lower extremities feel tingling .
[2023-09-10] MEDS: CEFAZOLIN SODIUM/DEXTROSE,ISO 2 GM/50 ML PIGGYBACK IV (04:58)
[2023-09-10 06:28] LABS: Basophils Percent Auto 0.2 % (0.2-2.0); Hematocrit 25.9 % (36.0-48.0); Hemoglobin 8.6 g/dL (12.0-16.0); Immature Granulocytes Abs Auto 0.12 10^3/uL (0.00-0.03); Immature Granulocytes Pct Auto 0.6 % (0.0-0.5); Lymphocytes Absolute Auto 0.9 10^3/uL (1.2-3.8); Lymphocytes Percent Auto 4.5 % (20.5-60.0); Mean Corpuscular HGB Conc 33.2 g/dL (29.9-35.2); Mean Corpuscular Hemoglobin 29.8 pg (26.7-34.0); Mean Corpuscular Volume 89.6 fL (81.0-99.0); Mean Platelet Volume 10.3 fL (9.5-13.5); Monocytes Absolute Auto 1.3 10^3/uL (0.3-0.8); Monocytes Percent Auto 6.7 % (1.7-12.0); Neutrophils Absolute Auto 17.5 10^3/uL (1.4-6.5); Platelet Count 208 10^3/uL (150-450); Red Blood Count 2.89 10^6/uL (4.20-5.40); Red Cell Distribution Width 13.2 % (11.0-15.0); White Blood Count 19.9 10^3/uL (4.0-11.0)
[2023-09-10] MEDS: DOCUSATE SODIUM 100 MG CAPSULE PO ×2 (10:11→20:19)
[2023-09-10] MEDS: ENOXAPARIN SODIUM 40 MG/0.4 ML SYRINGE SUBQ (10:12)
[2023-09-10] MEDS: KETOROLAC TROMETHAMINE 30 MG/ML VIAL IVP ×2 (10:44→20:19)
[2023-09-10] MEDS: ACETAMINOPHEN 500 MG TABLET 1000 MG PO (14:42)
--- NOTE | 2023-09-10 15:54 | SWNOTE1 ---
SW consulted for mental health and financial concerns. SW met with pt, father of baby, and 2 sister in laws. Pt and father of baby live together and this is first child. They do have everything they need for baby at home. She is breast feeding and it is going well. They do have a good support system as well. No concerns at this time. SW did ask about any financial concerns and pt voiced they are figuring things out. SW let them know to reach out as SW could help with resources. Pt is going to think about it and let SW know. SW also asked about pt's mental health as well. Pt is going to resume her Cymbalta , as she was taking it before she was . Pt voiced she is feeling well. SW also spoke with her about post depression and reaching out to her support system, pt voiced understanding.
[2023-09-10] MEDS: SIMETHICONE 80 MG TAB.CHEW PO (16:08)
--- NOTE | 2023-09-10 16:12 | PC.NURSE ---
encouraged to ambulate hallway. simehicone given. pt reports passing gas couple times
--- NOTE | 2023-09-10 18:04 | PM.OBPN ---
OB - PN: Subj Subjective Interval history: This 28 year old presented this am with SROM and thick meconium. She was a scheduled induction for next week. At the initial evaluation, SROM was confirmed. In addition she had a vaginal discharge which was copious, brown wren mucoid in appearance though not foul smelling. Her GBS is neg. The heart tracing through most of the day has been CAT I. However, I was called by Karon when the patient was observed to have a low grade temp, she was flushed, and the tracing was demonstrating variables with accels however the baseline has significantly shifted upwards from 120 - 130's to 150's to 160's. Her contractions are every 2 min to five min and pitocin is not running. Her epidural was just placed. On my exam her cervix is 5 - 6 cm / 75 % / -1/ posterior/vertex. Even if pitocin is begun, she is remote from delivery and I am concerned chorioamnionitis is present as evidenced by maternal low grade temp, elevated WBC and significant rise in the baseline though it remains a CAT I. I discussed my findings and impressions with the patient and her . They understand that even if pitocin was started to augment labor, and the baby tolerated pitocin which is an unknown, we are likely many hours from delivery. My concern is that the baby will become impacted negatively by prolonged exposure to bacteria if chorio is present as I believe and the safest plan is to proceed with primary LTCS within the hour of being called. The patient and her stated understanding and agreement with plan and voiced no concerns or questions. Of note, the patient just prior to my arrival reported that she was naseous and vomited and just did not feel well . Patient comments: no complaints infant status: doing well Exam Constitutional Vital Signs, click to edit/add: Last Vital Signs Temp 97.2 F L 09/10/23 16:06 Pulse 81 09/10/23 05:30 Resp 16 09/10/23 16:06 BP 119/60 09/10/23 16:01 Pulse Ox 97 09/10/23 05:30 O2 Del Method Room Air 09/10/23 11:52 Documenting provider has reviewed patient's vital signs: yes Common normals: no apparent distress Respiratory Common normals: normal respiratory effort and clear to auscultation bilaterally Cardio Common normals: regular rate and regular rhythm GI Common normals: Normal to inspection, nondistended, normoactive bowel sounds present Extremity Common normals: no clubbing, cyanosis or edema Results Labs Labs: Short CBC 09/10/23 Range/Units 06:09 WBC 19.9 H (4.0-11.0) 10^3/uL Hgb 8.6 L (12.0-16.0) g/dL Hct 25.9 L (36.0-48.0) % Plt Count 208 (150-450) 10^3/uL Urinary Catheter Management Urinary Catheter Management Urethral: Cath placed during this visit: yes Urethral indwelling: No Insertion date: 09/09/23 Insertion time: 21:00 OB - PN: A/P Assessment and Plan (1) SROM (spontaneous rupture of membranes): (2) Meconium in amniotic fluid: (3) Uterine contractions: (4) Vaginal discharge during , antepartum: Plan - day: 1 Plan: routine postop care Time Spent with Patient Time: Total time spent is greater than 50% in coordination of care (as documented) at patient's floor/unit and/or counseling patient: Total time spent with greater than 50% in coordination of care (as documented) at patient's floor/unit and/or counseling patient: less than 15 minutes
[2023-09-11] VITALS (7 sets, daily range): BP systolic 96–117; BP diastolic 52–74; PULSE 91–93; RESP 16–18; TEMP 36.7–36.9
[2023-09-11] MEDS: KETOROLAC TROMETHAMINE 30 MG/ML VIAL IVP ×4 (01:56→22:56)
--- NOTE | 2023-09-11 07:32 | W.PC.ACHO ---
Registration Status: ADM IN Primary Language: Iranian Preferred Language: Iranian Active Medications Generic Name Dose Route Start Last Admin Trade Name Freq PRN Reason Stop Dose Admin Acetaminophen 1,000 mg 09/10/23 08:30 09/10/23 14:42 Acetaminophen 500 Mg Tablet PO 1,000 mg Q6H PRN Administration Pain Al Hydroxide/Mg Hydroxide 2,400 mg 09/09/23 23:29 Magnesium Hydroxide 2,400 Mg/10 Ml Oral.Susp PO Q6H PRN Dyspepsia Carboprost Tromethamine 250 mcg 09/09/23 12:46 Carboprost Tromethamine 250 Mcg/Ml 1 Ml Vial IM 09/11/23 12:46 Q15M PRN Bleeding Docusate Sodium 100 mg 09/10/23 09:00 09/10/23 20:19 Docusate Sodium 100 Mg Capsule PO 100 mg BID JACQUELINE Administration Duloxetine HCl 30 mg 09/10/23 09:00 Duloxetine Hcl 30 Mg Capsule.Dr PO QD JACQUELINE Enoxaparin Sodium 40 mg 09/10/23 10:30 09/10/23 10:12 Enoxaparin Sodium 40 Mg/0.4 Ml Syringe SUBQ 40 mg Q24H JACQUELINE Administration Fentanyl Citrate 100 mcg 09/09/23 19:46 Fentanyl Citrate/Pf 100 Mcg/2 Ml Vial EPIDURAL ONCE PRN epidural Fentanyl Citrate 100 mcg 09/09/23 19:46 Fentanyl Citrate/Pf 100 Mcg/2 Ml Vial EPIDURAL ONCE PRN epidural Sodium Chloride 1,000 mls @ 125 mls/hr 09/09/23 13:00 09/09/23 21:14 Sodium Chloride 0.9% 1,000 Ml IV 125 mls/hr .Q8H JACQUELINE Administration Oxytocin/Sodium Chloride 10 units in 500 mls @ 6 mls/hr 09/09/23 20:00 09/09/23 21:25 Pitocin 10 Unit/500 Ml-Ns IV Not Given CONT JACQUELINE Protocol 2 MILLIUNIT/MIN Ropivacaine/Sodium Chloride 400 mg in 200 mls @ 6 mls/hr 09/09/23 21:30 09/09/23 20:55 Naropin 0.2% 400 Mg/200 Ml Bag EPIDURAL 6 mls/hr Q24H JACQUELINE Administration Lactated Ringer's 1,000 mls @ 50 mls/hr 09/09/23 23:15 09/09/23 22:30 Lactated Ringers IV 50 mls/hr .Q20H JACQUELINE Administration Lactated Ringer's 1,000 mls @ 50 mls/hr 09/09/23 23:15 09/09/23 23:07 Lactated Ringers IV 50 mls/hr .Q20H JACQUELINE Administration Ibuprofen 800 mg 09/09/23 23:29 Ibuprofen 400 Mg Tablet PO Q8H PRN Pain Ketorolac Tromethamine 30 mg 09/10/23 08:30 09/11/23 01:56 Ketorolac Tromethamine 30 Mg/Ml Vial IVP 30 mg Q6H PRN Administration pain Lidocaine 5 ml 09/09/23 12:46 Lidocaine Viscous 2% 15 Ml Solution TOPICAL 09/11/23 12:47 ONCE PRN Pain Lidocaine 1 ml 09/09/23 12:46 Lidocaine Hcl 1% 200 Mg/20 Ml Mdv INJ 09/11/23 12:47 ONCE PRN Pain Methylergonovine Maleate 0.2 mg 09/09/23 12:46 Methylergonovine Maleate 0.2 Mg/Ml Ampule IM 09/11/23 12:46 ONCE PRN Uterine Contractility/Contract Methylergonovine Maleate 0.2 mg 09/09/23 12:46 Methylergonovine Maleate 0.2 Mg Tablet PO 09/11/23 12:46 Q4H PRN Uterine Contractility/Contract Misoprostol 600 mcg 09/09/23 12:46 Misoprostol 100 Mcg Tablet PO 09/11/23 12:46 ONCE PRN Uterine Bleeding Misoprostol 800 mcg 09/09/23 12:46 Misoprostol 100 Mcg Tablet SL 09/11/23 12:46 ONCE PRN Uterine Bleeding Misoprostol 1,000 mcg 09/09/23 12:46 Misoprostol 100 Mcg Tablet MT 09/11/23 12:46 ONCE PRN Uterine Bleeding Ondansetron HCl 4 mg 09/09/23 12:46 Ondansetron Pf 4 Mg/2 Ml Vial IV Q6H PRN Nausea And Vomiting Ondansetron HCl 4 mg 09/09/23 12:46 Ondansetron 4 Mg Rapdis Tablet SL Q6H PRN Nausea And Vomiting Ondansetron HCl 4 mg 09/09/23 23:29 Ondansetron Pf 4 Mg/2 Ml Vial IV Q6H PRN Nausea And Vomiting Oxycodone/Acetaminophen 1 tab 09/09/23 23:29 Oxycodone Hcl/Acetaminophen 5mg/325mg PO Q4H PRN Pain Scale 4-6 Oxytocin 10 unit 09/09/23 12:46 Oxytocin 10 Unit/Ml Vial IM 09/11/23 12:46 ONCE PRN Bleeding Simethicone 80 mg 09/09/23 23:29 09/10/23 16:08 Simethicone 80 Mg Tab.Chew PO 80 mg QID PRN Administration Abdominal Distention Respiratory Oxygen Delivery Method Room Air Oxygen Delivery Method Room Air Oxygen Delivery Method Room Air Oxygen Delivery Method Room Air Cardiology Heart Sounds Strong,Regular Heart Sounds Strong,Regular Bowels Bowel Pattern No Bowel Movement Bowel Pattern No Bowel Movement Bowel Pattern No Bowel Movement Bowel Pattern No Bowel Movement Renal Bladder Pattern Continent Bladder Pattern Continent Bladder Pattern Continent Catheter Urinary Catheter Date of 09/09/23 Insertion [Urethral] Urinary Catheter Time of 21:00 Insertion [Urethral]
--- NOTE | 2023-09-11 07:52 | PM.OBPN ---
OB - PN: Subj Subjective Interval history: This 28 year old presented this am with SROM and thick meconium. She was a scheduled induction for next week. At the initial evaluation, SROM was confirmed. In addition she had a vaginal discharge which was copious, brown wren mucoid in appearance though not foul smelling. Her GBS is neg. The heart tracing through most of the day has been CAT I. However, I was called by Karon when the patient was observed to have a low grade temp, she was flushed, and the tracing was demonstrating variables with accels however the baseline has significantly shifted upwards from 120 - 130's to 150's to 160's. Her contractions are every 2 min to five min and pitocin is not running. Her epidural was just placed. On my exam her cervix is 5 - 6 cm / 75 % / -1/ posterior/vertex. Even if pitocin is begun, she is remote from delivery and I am concerned chorioamnionitis is present as evidenced by maternal low grade temp, elevated WBC and significant rise in the baseline though it remains a CAT I. I discussed my findings and impressions with the patient and her . They understand that even if pitocin was started to augment labor, and the baby tolerated pitocin which is an unknown, we are likely many hours from delivery. My concern is that the baby will become impacted negatively by prolonged exposure to bacteria if chorio is present as I believe and the safest plan is to proceed with primary LTCS within the hour of being called. The patient and her stated understanding and agreement with plan and voiced no concerns or questions. Of note, the patient just prior to my arrival reported that she was naseous and vomited and just did not feel well . Patient comments: no complaints infant status: doing well Exam Constitutional Vital Signs, click to edit/add: Last Vital Signs Temp 97.8 F 09/10/23 19:55 Pulse 81 09/10/23 05:30 Resp 16 09/11/23 00:28 BP 96/52 09/11/23 00:25 Pulse Ox 97 09/10/23 05:30 O2 Del Method Room Air 09/11/23 00:28 Common normals: no apparent distress, oriented x3 and alert HENMT Common normals: normocephalic Eye Common normals: EOMs intact bilaterally Neck & C-Spine Common normals: full ROM Lymph Lymphatic: no lymphadenopathy noted Chest Common normals: inspection of chest normal Respiratory Common normals: normal respiratory effort and clear to auscultation bilaterally Auscultation: clear to auscultation bilaterally Cardio Common normals: regular rate and regular rhythm GI Common normals: Normal to inspection, nondistended, normoactive bowel sounds present and non-tender Common normals: no CVA tenderness Back & Pelvis Common normals: no CVA tenderness Extremity Common normals: normal to inspection and full ROM Neuro Common normals: oriented x3 and moves all extremities Sensorium/orientation: awake, alert, oriented to person, oriented to place and oriented to time Psych Common normals: mental status grossly normal, thought process normal and cooperative Urinary Catheter Management Urinary Catheter Management Urethral: Cath placed during this visit: yes Urethral indwelling: No Insertion date: 09/09/23 Insertion time: 21:00 OB - PN: A/P Assessment and Plan (1) SROM (spontaneous rupture of membranes): (2) Meconium in amniotic fluid: (3) Uterine contractions: (4) Vaginal discharge during , antepartum: Plan - Plan: routine postop care Time Spent with Patient Time: Total time spent is greater than 50% in coordination of care (as documented) at patient's floor/unit and/or counseling patient: Total time spent with greater than 50% in coordination of care (as documented) at patient's floor/unit and/or counseling patient: less than 15 minutes
[2023-09-11] MEDS: DOCUSATE SODIUM 100 MG CAPSULE PO ×2 (08:57→22:58)
[2023-09-11] MEDS: ACETAMINOPHEN 500 MG TABLET 1000 MG PO (13:19)
[2023-09-11] MEDS: ENOXAPARIN SODIUM 40 MG/0.4 ML SYRINGE SUBQ (17:07)
[2023-09-11] MEDS: DULOXETINE HCL 30 MG CAPSULE.DR PO (22:58)
[2023-09-12 00:49] VITALS: BP 124/69; PULSE 107; RESP 18; TEMP 36.6
[2023-09-12] MEDS: IBUPROFEN 400 MG TABLET 800 MG PO (04:46)
--- NOTE | 2023-09-12 08:06 | P.OBPN_ITS ---
OB - PN: Subj Subjective Interval history: This 28 year old presented this am with SROM and thick meconium. She was a scheduled induction for next week. At the initial evaluation, SROM was confirmed. In addition she had a vaginal discharge which was copious, brown wren mucoid in appearance though not foul smelling. Her GBS is neg. The heart tracing through most of the day has been CAT I. However, I was called by Karon when the patient was observed to have a low grade temp, she was flushed, and the tracing was demonstrating variables with accels however the baseline has significantly shifted upwards from 120 - 130's to 150's to 160's. Her contractions are every 2 min to five min and pitocin is not running. Her epidural was just placed. On my exam her cervix is 5 - 6 cm / 75 % / -1/ posterior/vertex. Even if pitocin is begun, she is remote from delivery and I am concerned chorioamnionitis is present as evidenced by maternal low grade temp, elevated WBC and significant rise in the baseline though it remains a CAT I. I discussed my findings and impressions with the patient and her . They understand that even if pitocin was started to augment labor, and the baby tolerated pitocin which is an unknown, we are likely many hours from delivery. My concern is that the baby will become impacted negatively by prolonged exposure to bacteria if chorio is present as I believe and the safest plan is to proceed with primary LTCS within the hour of being called. The pat richa and her stated understanding and agreement with plan and voiced no concerns or questions. Of note, the patient just prior to my arrival reported that she was naseous and vomited and just did not feel well . Patient comments: no complaints and pain well controlled [place] infant status: doing well Exam Constitutional Vital Signs, click to edit/add: Last Vital Signs Temp 97.9 F 09/12/23 00:49 Pulse 107 H 09/12/23 00:49 Resp 18 09/12/23 00:49 BP 124/69 09/12/23 00:49 Pulse Ox 97 09/10/23 05:30 O2 Del Method Room Air 09/12/23 00:49 Documenting provider has reviewed patient's vital signs: yes Common normals: no apparent distress Respiratory Common normals: normal respiratory effort and clear to auscultation bilaterally Cardio Common normals: regular rate and regular rhythm GI Common normals: Normal to inspection, nondistended, normoactive bowel sounds present Extremity Common normals: normal to inspection and no calf tenderness Urinary Catheter Management Urinary Catheter Management Urethral: Cath placed during this visit: yes Urethral indwelling: No Insertion date: 09/09/23 Insertion time: 21:00 OB - PN: A/P Assessment and Plan (1) SROM (spontaneous rupture of membranes): (2) Meconium in amniotic fluid: (3) Uterine contractions: (4) Vaginal discharge during , antepartum: Plan - day: 3 Plan: routine postop care, discharge home and follow up 6 weeks Time Spent with Patient Time: Total time spent is greater than 50% in coordination of care (as documented) at patient's floor/unit and/or counseling patient: Total time spent with greater than 50% in coordination of care (as documented) at patient's floor/unit and/or counseling patient: less than 15 minutes
[2023-09-12 08:21] VITALS: BP 132/71; PULSE 80; RESP 18; TEMP 36.7
[2023-09-12] MEDS: DOCUSATE SODIUM 100 MG CAPSULE PO (08:23)
--- NOTE | 2023-09-20 | DS_ITS ---
DISCHARGE DATE: 09/20/2023 PRIMARY DIAGNOSES: 1. Spontaneous rupture of membranes. 2. Meconium stained amniotic fluid. 3. Uterine contractions. PROCEDURE: section. HOSPITAL COURSE: As expected. Please see chart for full details. LABORATORY DATA: Please see chart. COMPLICATIONS: None. DISCHARGE CONDITION: Stable. CONSULTATION: Anesthesia. DISCHARGE INSTRUCTIONS: 1. Diet: Regular. 2. Medications: a. Percocet 5/325 one to two p.o. every 4-6 hours p.r.n. pain. b. Motrin 800 one p.o. every 8 hours p.r.n. pain. 3. Followup in one week. Restrictions: Pelvic rest for 6 weeks. No heavy lifting. May drive when pain free and no longer on narcotics. MTDD
== END 2023-09-12 12:30 | disposition home or self-care (01) | DRG 540 ==
PROVIDERS: Admitting Provider Obstetrics & Gynecology; Visit Provider Obstetrics & Gynecology
PROC: 10D00Z1 Extraction of Products of Conception, Low, Open Approach (ICD-10-PCS; CPT 59514; principal; 2023-09-09 22:00)
DX: O42.02 Full-term premature rupture of membranes, onset of labor within 24 hours of rupture (principal); O76 Abnormality in fetal heart rate and rhythm complicating labor and delivery; Z3A.39 39 weeks gestation of pregnancy; Z37.0 Single live birth; O75.2 Pyrexia during labor, not elsewhere classified; O99.334 Smoking (tobacco) complicating childbirth; O36.63X0 Maternal care for excessive fetal growth, third trimester, not applicable or unspecified; D72.829 Elevated white blood cell count, unspecified; N89.8 Other specified noninflammatory disorders of vagina; O99.892 Other specified diseases and conditions complicating childbirth; F17.200 Nicotine dependence, unspecified, uncomplicated; O77.0 Labor and delivery complicated by meconium in amniotic fluid
CPT/HCPCS: 36415; 51702; 59050; 64486; 80307; 85025; 86900; 86901; 87070; 88307; 96372; 96374; 96375; 96376; J0131; J0665; J0690; J1100; J1650; J1885; J2274; J2371; J2405; J2590; J2765; J2795

== ENCOUNTER 2023-09-14 07:52 | Outpatient (OUT) | payer MEDICAID, SELFPAY ==
--- OUTSIDE RECORDS SUMMARY | 2023-09-14 07:57 | XMS_ITS | CCD ---
Author Name Unknown Address [address] [place] [address] Organization [facility] Care Team Providers Care Jail Guard Name Role Phone Kyle Pepe Attending Unavailable Kyle Pepe Admitting Unavailable Shannon Glez Primary Care Unavailable MD Shannon Glez Primary Care Provider MD Kyle Pepe Admit Provider MD Kyle Pepe Attending Provider FIONA GRIER Primary Care Unavailable LIZ, DR CRAVEN Admitting Unavailable LIZ, DR CRAVEN Attending Unavailable SRINIVAS, DR BRYAN Hernandez Consulting Unavailable [place] SAGASTUME Consulting Unavailable LIZ, DR CRAVEN Consulting Unavailable DAMI CHAPIN Admitting Unavailable DAMI CHAPIN Attending Unavailable [facility] Primary Care Unavaila liz NARANJO, DR [...] with voice recognition software. Occasional wrong-word or ?ecazi-z-aava? substitutions may have occurred due to the [...] also states she does not know what ccmt-zzn-kilhxft medications she is able to take. She [...] May use flonase for symptomatic tx. Contact handkerchief maker to confirm flonase is safe usage in addition to plain robitussin. Follow up with PCP if not improving over next --- days or significantly worsening symptoms. Patient verbalized understanding of tx plan. Ordered: fluticasone nasal, 1 spray(s), Nasal, BID for 7 day(s), 16 gm, Refill(s) 0, each nostril, [facility], 159, cm, 06/06/23 11:45:00 EDT, Height/Length Dosing, 76, kg, 06/06/23 11:45:00 EDT, Weight Dosing Follow-up With When Contact Information Newton DUNCAN, Shannon Murphy [employer] [place] [address]- Additional Instructions: Patient Education Upper Respiratory Infection, Adult Problem List/Past Medical History Ongoing Acute medial meniscus tear of left knee Anxiety Chlamydia Episodic mood disorder. Lower back pain Posttraumatic stress disorder Suicide attempt Historical No qualifying data Procedure/Surgical History Dilation and curettage. Medications Flonase 0.05 mg/inh Reva, 1 spray(s), Nasal, BID Allergies No Known Allergies Social History Alcohol - Low Risk, 12/09/2022 Current, 1-2 times per month, Household alcohol concerns: No., 12/09/2022 Substance Abuse - Low Risk, 12/09/2022 (more content not included)... [facility] Comment on above: Result Comment: Elec [...] to help relieve symptoms, such as: ? Szfg-joc-jriwpmj cold medicines. ? Cough suppressants. Coughing is [...] other clear broths. General instructions ? Take poyx-itf-jhryumy and prescription medicines only as told by [...] and water are not available, use hand manager operations and procurement. ? Avoid touching your mouth, face, eyes, [...] Get help (more content not included)... [facility] Follow-Upon 06-04-2023 Follow-Up [id number] Priyanka Hardin 1995 F Date Provider Department Center 06/04/2023 RONNY AZAR MP ORTHO MPORTHO No family history on file Level of Service:22865 [place] OFFICE/OUTPATIENT ESTABLISHED MOD MDM 30-39 MIN () Reason for Visit and Comments: Pain [136] Normal [facility] Office Visiton 04-24-2023 Follow-up visit [id number] Priyanka Hardin 1995 F Date Provider Department Center 04/24/2023 RONNY AZAR MP No family history on file Level of Service:33391 [place] OFFICE/OUTPATIENT NEW MODERATE MDM 45-59 MINUTES Reason for Visit and Comments: Pain [136] - BWC Injury, meniscus tear injured 09/06/[address] [facility] ST - Assessmentson ST - Assessments [id number] #1.00CD:127 [facility] Coding Summary.on 01-01-2023 Coding Summary. CD:[id number] W w+PGhlYWQ+XZ0TZLPdD71 uvKLtrU9gP2EJKAjQJgbo WTCRYQhDPcCsjqWdQE7nq XNjZXJu IC8+TN8iCHZxIpdpfLFpj 1K2iES6V19sia1lAYrgeS T7LUBsSdYtmydot6sdhQp 6IDcuNmluOyBt DVAtwJ02JUG4wS89Ff33j NYxoWWzq4adiGh4EzHkAP XbUYO8sFzjCUyuj8EuGYK qF93fqMVgm5H1 YPGveMyeaYDsKvOxkKP5m Y5iMIgldbuyc2opkxlmPk j3bg36lLTix0P3pYE4P8D zbuH3NDQhxOKo MnokdNECqC3stltgw3kvf cdjDoZeAOJoZZy0UNk7AT FxrZmzMqDkRQ98DOF9NSB xapMoJ4BzUPPw nTodZuC3j9I0Ig7EP4YDS mbxO7YSNGIFOOgxlVD+PC 74jd94R9AwVgxiIww9SCW bVJF5qDX1tR5q PUEbXYhub4O2tSN3S8Gmi iHjpf8ud7smUBUkXAnvB7 0yxRHic0V7TTFjoRV6LAG uuJxtLoFfwY79 Oyc+RLSwdTczd7JgUqsql 5wcn7eqpMv6IsxaROAeyz VwdPpfZOM6h0HtHc0pYFB cuLZ4gHL6mJ5x GcHzCiS5QWbpF545FxKyy NMmYtfmK46cB7WyhZE+PH XdOyd2BHYioHgaWQ5uQ4C hZGRpbmctbGVm gZirKG1tBAXofnljEHNkt P5uPGVrT4q8TqCuFwI9ZQ wwX3VxKBNdarrkLh00cO9 qCsMyReQ1SRkg E6GbfwG5ZEUagAQiSOchO DR7Q20ld7H1LLMeBAQzJJ A3qQX3jC3awIlhjyfdqIV mdDsgdmVydGlj AUrmUJeqB820YLKolLpgX kNvZGluZyBEYXRlOiAgMD UvMDEvMjAyMzwvdGQ+PHR pAHG8rXlhDPSm hWRbWZelRd0aqVxgjFucO I7pHFMwhqbmEJIllG4oVQ UhyFTxiIzkLB7sHJKfpvn cs434UlWtDDK2 OCJumBWyJ0JiuR1nZqYcP PWtBHRkL9GyxGKiHAriL3 62RVbhUnW3FTBgtmEqW8P sLWFsaWduOiB0 a5S0Sv6Iq2FqwupeA4Pjv KVgGtItXljuFTr9B9FsBh wvdHI+ZP45WWUyMP49YBi 1TFS3aLosJVmv FBLkV9RnuA1uBmIvWYKxT GRkOyc+PHRhYmxlIHdpZH RoPScxMDAlJyBzdHlsZT0 wVf4uIIJsZBZj eOpqrWSfNfDkl6qaYZFxH LphZK0yzZorX8WbaWG1SF Tvz5t1Av61I98yN4YbfBA +ZVJrgUD3vNI1 fX5eOoBmYlE6WHunX669C kNqeMCgBtwwd2rar0zmbE d0TcL0QNOyjxJnkPovFKP 5c6LbVg30Y10a IHdpZHRoPSIxNSUiIHZhb Xbugr1rcC1aAd8+PGNvbC J6oDE9uK5uJpIbAvU5INs uS037IfTehRQt Soirw8dsd5vjiOe3SyEsD AWgsjPolYthLNQ4a8BdEd 38T9LubWwpt2DkPxe3kn1 2wQXpg0A5vIM7 C4PlDFAwsputvWIhuPyaH P7mBNEkwnydKFJywF5vTC YrL0x1JeAuEpM9GMimF2G asgD3GINfsJQm JLOanBABmW2snzhjt4mus ymyRaRjEUGuKQx5JId7VS PdsCxhMaWtNDN8WeR1UPK 8wERkjF4yhBmb wxmhbL6rBzu+DEU7fQLbv NLWFB7uProytMJ+PHRkIH Y7nIfqVJcuQBNoxQ2sEOE eD2h5GvOaOwP3 OLgrQ3NxzpK5ZTJibBPaW RXxvIWGpX7dojgxo1lowz ivEqGlKNNpPOs9UKj1YTR saWduOiBsZWZ0 ErW5XXA6qVDvlP4knQsan cqtyB1pGor+QmlydGggRG B0QFm6N4JhQfy8FBVrdMw pCO1iwYKrBRxp Fp7lsYanjUfnFN6aJRGwp qqtm100GvBor6xlGBSujF TjRSotPSH9D68uw7T1YVX zYSXqQHG9eQA5 zQ0joKwjpmqjuETduCxpq eJytOwtGHanREikL780PS OyjXhhUtDaSKb5Q5UhIjr 8QMAyxVxoYY7h kSSmBLcoIs7jaWkglBhtR F0vSZOgypnxn343OjPzs1 zhTVSwpSEmQTetIYF8W21 ih7O7SUEpMRQw RMP0iEK4vD4lsIolhodqn GVmdDsgdmVydGljYWwtYW bmF957VACvdKrsXqQrzEc 1G8HfOns6MGUy yQyrDM5drJPiFJhmEo6yw HhjtMzfFN7aWHWhvphdy4 10VoCxg1pyDBCptUWtPUd qUZZ9N83gw7W8 AWFgQOLaRUS5vNM0cK1ey GlnbjogbGVmdDsgdmVydG fvTUwbUQraD135FJNtmKp nPlBhdGllbnQg JVqlQZp0X7GyHzmrbMX+P X95GELpBF96dUYoiNLxd7 srqGl2FmOwFYHtWXU7uKx qASnol0IjBRHr C81fsZDaz3T7ADGknLclx PVqJoBtaKD6kI1nXIdjof dof0fynmuuJaxch7wzid5 8fW65D98pBItw ZHRoPSIzMCUiIHZhbGlnb q1auL6oMr0+TYBldCI8pS M4bO5mUQNaJuP4AZgtU56 9InRvcCIvPjxj k9pvr4qgfZm1NwM4RXZpp vEndEryWUN0c0LdMb95W8 9sIHdpZHRoPSIyMCUiIHZ gtCpvaf4zfE1i Ii8+MEYovML1mQY2hH3pY oWeVqZ9CDxwS984MrUssX IrOunbJ68tG5XakIR+PHR zVdn5DABklTwl IU5uiNXcCKjzWv8rZMM9J vPgKuPaRYdyG8FeTNNfup ctgnkmnAO4ZXFgIWQraQ5 7Lp0cgLabPZRn nSJUzG6feakrd8gzvonpA oJxXLErSTo5SHg3QFBoiG egGxLcCUG3JqO6LDO1sEA odL5vuTzqlbhd wZ3aN5AoPBTvsnluRs28a F1eTrCeSxD6KXclFqs+Sk 4YASKlSIVWSSCZQMEFUN7 6ZJ40lGIxg2T8 pHG0I3EpCXJsbnziuyzvi KC3ZUElKFLfaS37lLVqLA vgNi5nu9L7x497QKCgJRL asS77On5fmBtt ZGXnbAGBpW6redqte7kzg zwuFgWgVEJjSVr4XHx4BR YikZebXzNsTHH8TdL5GGR 7pEBzmG7wmDuq uenehB6vVnm+MDcvMjcvM Zb5XhkvzIU+FLHmPRG2tJ meALfkATHieV3hOTFoD7g 0NmLgQeL2CTwg Y2ZiCAFmabvgDm90pW6cH oMsOrW2ABjyK8BoqsH9HP TblPUxFYqvVVY9P30si7S 4IPLaBJZtNKU0 wTM7wZ6fyWuhfniudSFpp DsgdmVydGljYWwtYWxpZ2 53YOIrjNmlWkB9GXncMXW tNY95VP52yUOi p4N6pMQ7P1XrSUEkwkfnh eddkAP7MHFdZJUyfA38kM JeCIgwCp5ru9E0l847NLK iLOPjfK59Xw5j cUswSTUtaKPRvQ1gnqecb 6madewgGpQkTIJtSUf1YF f4NRRahNrhPjQeDIG2CtM 7ORC3qZUjcV5k tMsrrjeyeM5aOog+RmVtY GfcDA76AN14kWWyb4D2fX J4L5UxYAKigmjqcbmwfGD 3IUCmXAIhuC91 kDMlVWerTx8tc3L5n140F PUjEHRdtS39Uj9seDfeMA JupMUSrF9zrdfxs8sodvu gIzAwMDAwMDt0 OCs4QBXtdCryQuVuQEX6J nA1ZCE7nAWcnA6mcLembe aidV6jEfk+UmVjdXJyaW5 cCL10DV24O7Uz PjwvdGFibGU+PHRhYmxlI HdpZHRoPScxMDAlJyBzdH ytVE8yQy8iNODcJSDrdMn yoJZiIfLci3gr KCNsJMwyYZ0pjWfxR3Stg TV8VBMvj9j7Di64V37hG0 JvdXA+HXZcqPI5qPQ1zI9 gCuLbSlU6FWxp S084QnXckYPzOrunf4fwt 2hjnIk5GlGfHYHflrIxlH zhDLR2z0QfTh00J28yISr pZHRoPSIyMCUi YMQjpVtngr5peQ2kHk5+P YMpfBH0rFK7jG2hOyYlHu W5KAdfH265NpFgwWClMlc tZ75oM0DdvYI+ ABMzFjl2MPPeiCamMR7hy ICrYHipJd8xGMM2MyZlRc ZaMMgaG3UgRGSpcagfuti oyRL7OTJmOIAp jJ85Yp9xuWpnCo6vKULvG PJ3OKLtjYJwL3HmdD2gBs JrTYRiQKHrS2EkxFTpCKn xL844UEegKcQ2 INNfsgKrV2MbQFQkeYifC kX5x8W8Sr0NzOieuNCdZI 3sGdDaIMi3T5RfKjy4RUE mxMiyAY5rwOCj JWmzLw6rkTfouRpgPG8dS LWsrzvfo758LkYkg2dnGD YnfCAnRRgfLET2R73la0F 0RQJtYPMsJWS1 sXP5uB4txZoncrsjuBRdd DsgdmVydGljYWwtYWxpZ2 77AYEisZznXwCFNyk7A8Q gJkf3BEClpNrh QO7voHHvMPxoSg6whBksu RqvZK8oWJVbwtfzj331Yr Mqk8mkGYKgaBFbMVvdRBV 1S82oq4R5ZJEo JZCpHXD6fYZ0zR2gdMnjp jogbGVmdDsgdmVydGljYW roUEoaC421USTnqAgrDg4 EToo8H1TxPri0 KKJptIwyLJ4vpYBmADstT h7ilAzvkWixQM2vNPRgbn eun135JbNll0suWTPgfLG iXZlkAMI8Z79z d5F4VDRxOQDaAVL6kXI9p A2yfEslkawrvRZvxFzeev XeyHolOMnmIIgzO312IWO vcDsnPlBheWVy OjwvdGQ+MS79ni33D7IcZ tlpLtg0NRYsPTY6fOE8wG 0nVGYqFKami0H1hUW1S2F tppZbvv0gr8vj YXBzZTog (more content not included)... [facility] Consent for Treatmenton 12-03 Consent for Treatment [id number]#1 .00CD:[address] [facility] [address] - Orderson 12-22-2022 ST - Orders [id number]# 1.00CD:[address] [facility] [address] - Otheron 12-22-2022 ST - Other [id number]# 1.00CD:127 [facility] Family Medicine Office/Clini c Noteon 12-09-2022 [...] day(s), # 14 tab(s), Refills(s) 0, Pharmacy: [facility] 1985, 160, cm, 12/09/22 13:50:00 EDT, [...] virus vacci (more content not included)... [facility] Comment on above: Result Comment: Elec [...] home: Medicines ? Take, use, or apply eevi-obg-wztyqej and prescription medicines only as told by [...] and water are not available, use hand manager operations and procurement. ? Do not smoke. Avoid being around [...] or swell (more content not included)... [facility] Provider Letteron 12-09-2022 Provider Letter December 09, 2022 PRIYANKA HARDIN [address] [place] [address] PRIYANKA HARDIN 1995 To Whom It May Concern, Please excuse above patient from work. Date of Illness:12-09-2022 May Return to Work On:next scheduled work day Restrictions: _ Comments: _ Sincerely, [facility] [address] [place] [address], [place] [address] [facility] Family Medicine Office/Clini c Noteon 12-04-2022 Family [...] Acute pharyngitis, unspecified) Ordered: Rapid Strep POC 34280 Follow-up With When Contact Information Shannon [place] [address]- Additional Instructions: Patient Education Antibiotic Resistance Upper [...] o (more content not included)... [facility] Comment on above: Result Comment: Elec tronically [...] Before and after (more content not included)... [facility] Patient Letter FTon 2022 Patient Letter [facility] December 04, 2022 PRIYANKA HARDIN [address] [place] [id number] Please excuse PRIYANKA HARDIN from work . Date and/or Time of Absence: From: 12/04/22 To: 12/05/22 Restrictions: None Comments: Please excuse due to an acute illness. Provider Signature: Sunshine Mejias APRN, CONCESSION CASHIER-C Nurse Practitioner [address] [place] [address] [place] [address] [facility] CNOVon 11-13-2022 [facility] Office Visit (LOORRM ) PRIYANKA HARDIN ([id number]) 1995 F Date Time Provider Department 11/13/22 9:30 AM AUDREY MORGAN During your visit today, we recorded the following information about you: Weight Height 59 kg 1.6 m Allergies As of Date: 11/13/2022 (Not on File) Date Reviewed: 11/13/2022 Reviewed by: Monie Salmon MA - Fully Assessed Reason for Visit: New [[id number]] Primary Visit Diagnosis:Acute pain of left knee [M25.562] Other Visit Diagnosis:Internal derangement of left knee [M23.92] Problem List As Of Date: 11/13/2022 (None) Encounter Status:Closed by AUDREY MORGAN II on 11/14/22 Normal [facility] XR KNEE 4V AP/PA BOTH+LAT/ME R [...] dislocation. No joint effusion. IMPRESSION: Normal radiographs. Treating Engineer Helper[facility] Transcribe Date/Time: Nov 13 2022 9:55A Dictated by : EBENEZER HORAN MD This examination was interpreted and the report reviewed and electronically signed by: OPAL WARE MD on Nov 13 2022 9:51PM EST [id number] Normal [facility] MRI KNEE LT WO CONon 023 [...] by: RONNY NARANJO Date: 2022-10-11 19:17 Normal [facility] ED Noteon 07-12-2022 ED Note [id number]# 1.00CD:127 [facility] Comment on above: Other Comment: WRONG FOLDER Outside Recordson 07-12-2022 Outside Records [id number]# 1.00CD:127 [facility] Coding Summary.on 07-03-2022 Coding Summary. CD:[id number]:[id number] G h0bWw+PGhlYWQ+LD3PDLN oS91chFKnhE1DY3sSWI4G WCJMBVCYMC1RXJ7imHE8J FdvR5CjyeXm KnjfgMZcAA67NDq8MRK1u KroXPzabO3agEGqX7z1On AsRC12zT43MPqvNKAaAyP 3LjZpbjsgbWFy K4cqYiYzwVKaFdn+PHRhY mxlIHdpZHRoPScxMDAlJy PgpQslVD8wSy3mGWMlSKM vbGxhcHNlOiBj h8yiJJAaEBwiIJ2vuSksS 2HpmJV5ZPVru9b1Ba15nB I+XMSiBCY1bHkzUUvef59 9XrNml5irMRI0 kRKvZRyaFGP6B67lf9T1Y DTxKQBnVRO0ePU7dS4zpN mkznvnR0ZqfPRjJnR2NOG 2kSFizK6baMek lwnokT5yOdn+N07CHE7RI QRCYW9PUxg7N8HcOyoppA I+BW22IHZuOL98gEDnoXJ jy7gpzDx9LzCg AUJrIXG0iLxfJLngu0UnO QTkN37wnRBru5Y4PMTdxA rnmHQfMxMtiOV1nS0gFZd eubplq0wuauiz Cetkj5csfx09zU92C87dG UotKOMiZQJ1EMImCLMkuC cvhn9suH7mOa9+FInht0t lo2tfsLo1XbTo FBJtlrQsrUzoHAN1t6JbB n03G7FnfGqyz2OdQlz9sn 00yXTda7W0sPU3GDkqCKC acC2vIYlzLwE6 OGFeJnVypV73kBOxCZwgY w6qxNvjqDdvMN6yZXXuql ryHDFnlV4vLFCuaWSpsFw iBA0rQBJslvbr k406EjNnXWT8ARMfqPNsK 5AwmH2bRfTaOKWkIYNeC6 VbmMFoGTakX692OUtvKzI 7QWGvooBoM9Zc HFVwzXraGtX7g7X3Wo1Ni 8WsedhfPYN0YAbhKXDmDm QaFlCzPeB1M1AvFvj5IZM pwClzYJ5tD5If NJRntxkfcocdwCQ6EAQpP TJlqJ69xDGgUDwzUz7ti5 Y4z166IUTbFJNbsN83Xh7 udDogMTBwdCBU iZ7kqqehq4dvpxgoCiUuV XRdSDg1XMt7GNOygLzdOw TyZKP3WvJ9VSP5wPCulJ0 ziRxkkxycfB3s Oyc+U79mlQ8wAFH6NAZ2a jlvNLQyakXyTP76FL78C1 RyPjwvdGFibGU+PGRpdiB jfTwjUP8fPyOa o0bxu5SfLUptM9DkCVMbB VanHdy4SPVsKCV0kGW7rP 9aVXHhBKlxu1E0dFR5Q5R slgKrcy4ny3mt QDPrXCnxO63fdGOah1Y8S PRkqTV0EVXwfOphToOspU 93Oyc+YBXneYvto9KhAfd fa1ava6xcqUd6 OgMoBBKkjjUrpGpyCOK1b 9PtSj21Y53mOTgjNDMdSC McMNBnGSDbmMmnfz2hfL1 wIi8+PGNvbCB3 kQG3nE5xTCUwNjA2LSfaR 005LhJomOKgDvvsp7yqv6 vphEj6FwLiNPIypmGqaLm hGWM9q5PqTb46 O59lFXmyNDRcYOSeEVLiG LZmyOohhb4khQ9kSq7+PC 6tb5kash64hX85gXN+PHR nMNC1jUspAGsa OGSorY5dKRdfHrY3ZGLaC vOszE79vHLxNEmlHc8kjQ tzrQfoCV8kFDAzlgvyq80 5VkUyl9qpZRDp fUTxAXruYNC8M48jn3O9E RZaRQUaSQZ0xLW3oR3inL lnbjogbGVmdDsgdmVydGl jYAymAYrrB821 IHRvcDsnPlBhdGllbnQgT aPeOPo5R5JaKki0TWJqxI shAM2xoONiEQbzIk5xlOx kaCluTG7fVTId skdam386DbMwb5brHOQoo TVfPQunODW2L54yl5F1FK HuZFCvCWP4cZY9kR8hjPw nbjogbGVmdDsg qyOvjCoyRBetXJceA549V HRvcDsnPkJpcnRoIERhdG C1VC40MJ98hCEzt0J3vLQ 2O3UbBGNmuwws bouyrSW5GELcVZUxzL37Z q0ekIhhCb7pZDGgISC6TP JzaTTiC4NxrO2cMwDkBRC aWMZzI6DguOGc MGtgQ121NWwnJyP5GZCmm jXyA8ToYKUzsIshTlA1h6 N7Ve1KO4L6UP21NG93gJS an7G6eCT3W3Jj LEJkawiozqgtaZL7HGZuJ AHnaK96Fp0rlZqxCk0oXF BeDYY3TNHjaXRaG0TiiA8 yOiAjMDAwMDAw H9HkqZEiWOsjP392CVvhE yS8VPJkokOvJ3HhUOJwhG ctUoR2k8Y2Hk4LSIy0RT8 1ZD88jOKjg4O9 vXM4Q2XuEEWbcdnqxbwjp WZ5TMNoAVSfuH99Ss5dpH egIg6oICDmNBM9GHNhwFU jT1KkyI5tEjHk SGPsSGYlL3TwlUNgEQnrV 969BHijWkG6QXWmpbYhL6 GiZDAczYwvCzI5u7P8Wj4 MBBFaUP26VWH4 oUC2RI12OR44R6LzMphmi GFibGU+PHRhYmxlIHdpZH RoPScxMDAlJyBzdHlsZT0 aHm7fVFZiZXNp rDuiiJQgKxQlk8pwNGUbI SdpFJ6dwFvsZ2EprII4KE Tok4a4Hg01P18dE9RzaQS +KNGeaUG7bTX5 zM1oMoSdQyL5ZFtpK619H rWhrUXrTjbqx6otp9affT f0HkC5KBBdsaXxxQtjZES 8t0AxUy43K14i IHdpZHRoPSIxNSUiIHZhb Fexlj1ftP3nDd9+PGNvbC X8yCB4hI5hSmUdIfG0NGy zA052MlJbpURe Rmoab9zbb7bacIh0RqJaU TMryiTzrScaFIL7j3QeAd 03I9KkiEzke6ZtKqn3uv1 7vOXgq5G1uZP9 C0HpNQPrwwutqJLdgDecU X4nDHTibvoxPVHppK5uNT TnA2w3IcOzEjX3RNxpH0Z rdnP9ETClfJZw LXctHEF2F88hu4I4MRWlI SBfOVA2oCQ7aB3mhOpobj ogbGVmdDsgdmVydGljYWw cTFzyO213PUCa wOecMVUpbE9zGSUocTBjk XdlRT4qIOQgmcviLagRCa YEFULKDMcPP6DyGGzfhCZ +LGMqXQS2nYss IHeoKPJhxD3eYDQbZ7f8K cXlEuF5JKqgX3FiGVXuwf krVp23wL5aWoHmNrY9HHi pP8AqblS0TSVx qNYgXVvqPAD5J09rx4Y3T LGcJKNqLQR8zWW9sT2ynB lnbjogbGVmdDsgdmVydGl oEJnkELvgE805 NKWzeNsqUdS9RaH4DkF6S Qw7A9CxPzc6RQQptSrsAN 0tcPJoVMmlOg0onYwhlPx aSG6aYHLyjhnj FSRpjU0oWAPcdCVosUofD H1sCHQatezaq263KcTsDW U7BIBdrWGwL0OprU2tYvE zUVAeZCPpP4Nj gKGyGPaaT258HUueCpU9Z KSxreCsQ9QbMIUhxItbRl D3s6T4Fq3qZNPVIWHyzsh vdGQ+PHRkIHN0 hLlqJAmsCSTpcN7bTBRjT 0l3XoMqQnD3MOuyM2YoVA UsrxviOc04oQ1bFyIdJrT 1BFxaU8MqrdF1 QIKcqEKzNOpuKUU4T96fr 8P5TQRwVTRpIDL6vCV0vA 1hbGlnbjogbGVmdDsgdmV ydGljYWwtYWxp W829QKPimBuzVcUvyRJdN TwvdGQ+BNOyLZN9rIthVE tdALEykG4zSUAnS5i1OfV gYeU8PTnrS5Ty XDTlsgwnUi77fC4iMpJpB hY4CJytL4KrhhD1VQVtqF BhSQwnGRT5D51xe7N6SXY bOWUnDFT0cPB8 jR5keVzmcuusrOFogUnji pXjxXseWRwaSEnnP783MO VheVrlLaEbWBPwWS2fpVf vdGQ+HE88xs43 S9AlCfvzLmf5DVIhNNI6d IF8uZ7oMCZnBPuwz3P6iS I5E8RyjiIrpr5zd7iuDCP qYNznY40jsCOj x8H4GHZtaPO0SUPmnKbeM iRebQ55Lyf+PGNvbGdyb3 EqYjyzs0oej3toqIr9FdR wJSIgdmFsaWdu EZI4i2GlBo89D57rTEryA HRoPSIzMCUiIHZhbGlnbj 7qeL5rSi1+SKTydRI4sBM 3eK5eOqFaNuV8 EKgzI223OlLqtGRtZekna 8gjm9oscPb2TqHiYZYirx RsoZdnJVP5s9EpFb17V8J qnCgmo4JxGps4 xf04xHBfm0W3lBK0U7HiC LHjsnlbpNWgfMkvPN3aYV AprpchDHAozW5zHPOpC2l 1HdBpSsM8CKap B8SpglA5DANfgQDvTWGgr UROfP6yylmpy5qqzjgvLv DaQCYrXAc8LSm5IVSebYp eRgJuVYT8GzN4 JUZ2yUJytZ0miGzbyxzdr G9wOyc+GNu7c9qnlANoUL 0zlFR0KC40NO06jUXby0O 8bJH5E3GdELHk duxkqngjwOD8NEPkULOem U29Fq3dxOlsKa1fUVZeEW P6FDEctEKnU8QzxJ3tJkT vHOEhQMPwM5Dp gTNlPMhhZ709DMrtOrX3T MIszlObL1UkKELbyDygSz E4h4O9Yf4TJT86FF39XU9 3mLHrc9X6yXX3 L8SmTYYkwugbxvoeoKB8N UZzEQXrnT29Pw7ntTbiBj 1dZUHlWSN5FZSbvYJdK3D mrD8aAaVrHMKb DEVrI4XgeMBzFVpdS862Q GnuOsH6KYGplcPdC5TtCT QcfTsnDzM5s5A7Wp1IWd5 2UF22GD51cFEf h7K2iOR1G1MtZYQeftske bslgFC7QVMgNOVpkY09Ae 0jtGbfAj3mVKMjDOK8JMM oqMThK7ZfvV2s WsTqLRWgJXAzB4SffCJrS KpqZ955SNcyRdX2TZSfle UvX9JmNIWjrKcgWvB1j0F 6Jt7JKJleadp7 Q2PhRbmbsJJ+KQ53GHZbZ E71rUYqjOOma0gcaCd4Nc NbVVQqXHE2mRioFJrrv7D jHYQiX80pcLOp c2U6 (more content not included)... [facility] Cholesterol [Mass/volume] in Serum or PlasmaOrdered By: Kyle Pepe on 06-30-2022 Cholesterol [Mass/Vol] 135 mg/dL 140-200 [facility] Comment on above: Chol less than 200 m g/dl low riskChol 201-239 mg/dl borderline riskChol 240 mg/dl and greater high risk Cholesterol in LDL Calc [Mas s/Vol]Ordered By: Kyle Pepe on 06-30-2022 Cholesterol in LDL [Mass/Vol] 66 mg/dL 0-100 [facility] Comment on above: LDL ATP III CLASSIFI CATIONLDL less than 100 mg/dL OptimalLDL 100-129 mg/dL Near or above optimalLDL 130-159 mg/dL Borderline highLDL 160-189 mg/dL HighLDL greater than 189 mg/dL Very high Cholesterol in VLDL Calc [Ma ss/Vol]Ordered By: Kyle Pepe on 06-30-2022 Cholesterol in VLDL [Mass/Vol] 4 mg/dL [facility] ED Clinical Summaryon 2021 ED Clinical Summary [place] [id number] ED Clinical Summary Person Information Name: PRIYANKA HARDIN [facility] Age: 27 Years : 1995 Sex: Female Language: Yakut PCP: Shannon Glez MD Marital Status: Single [...] 06/29/2022 23:43:15 06/29/2022 23:43:15 ADDRESS: [place] [facility] [id number] PHYS DOC NOTES: MEDICAL INFORMATION: Prescriptions Given: Medications to Continue with No Changes Other Medications diphenhydrAMINE (Benadryl 25 mg Cap) 1-2 cap(s) By Mouth 3 times a day as needed as needed for itching. Refills: 0. famotidine (Pepcid 20 mg Tab) 1 Tablets By Mouth 2 times a day. Refills: 0. PATIENT EDUCATION INFORMATION: Instructions: Follow up: DIAGNOSIS: 1:Suicidal ideation [facility] ED Patient Education Noteon 06-30-2022 ED Patient Education Note [facility] ED Patient Summaryon 022 ED Patient Summary [address] [address] Patient Discharge Instructions Person Information Name: PRIYANKA HARDIN Age: 27 Years Arrival Date: 06/29/2022 17:33:15 Discharge Diagnosis: 1:Suicidal ideation Primary Care Physician: Shannon Glez MD Provider Information Primary Provider: Sai Vasquez DO Advanced Order Management Specialist:Arnoldo Wellington PA-C The exam and treatment you received in the Emergency Department were for an urgent problem and are not intended as complete care. It is important that you follow up with a doctor, nurse practitioner, or physician?s elder assistant for ongoing care. If your symptoms [...] opioids can be used to help relieve qgyvxemh-jf-tzbnwn pain and are often prescribed following a [...] be struggling with addiction, tell your health health care specialist and ask for guidance or call [facility]?S [employer] Helpline at [phone]. a Source: [place] Department of Health and Human Services/Center for Disease Control & Prevention [facility] Medications Given: Medication Dose Rou (more content not included)... [facility] EMS Documentationon 06-30-20 EMS Documentation [id number]#1 .00CD:127 [facility] Lipid Panelon 06-30-2022 Cholesterol [Mass/Vol] 135 mg/dL Low 140-200 [facility] Comment on above: Result Comment: Chol less than 200 mg/dl low risk Chol 201-239 mg/dl borderline risk Chol 240 mg/dl and greater high risk Performed By: #### T SH3 wRFLX, [id number], LIPID #### [facility] [address] [place] [id number] [place] Cholesterol in HDL [Mass/Vol] 65 mg/dL Normal 35-85 [facility] Comment on above: Result Comment: HDL CHOL ATP-III CLASSIFICATION Cardiovascular Risk HDL > or equal to 60 mg/dL LOW HDL < 40 mg/dL HIGH Performed By: #### T SH3 wRFLX, [id number], LIPID #### [facility] [address] [place] [id number] [facility] Cholesterol.total/Choles terol in HDL [Mass ratio] 2.1 {ratio} Normal <5.0 [facility] Comment on above: Performed By: #### T SH3 wRFLX, [id number], LIPID #### [facility] [address] LDL Cholesterol,Calculated 66 mg/dL Normal 0-100 [facility] Comment on above: Result Comment: LDL ATP III CLASSIFICATION LDL less than 100 mg/dL Optimal LDL 100-129 mg/dL Near or above optimal LDL 130-159 mg/dL Borderline high LDL 160-189 mg/dL High LDL greater than 189 mg/dL Very high Performed By: #### T SH3 wRFLX, [id number], LIPID #### [facility] [address] Triglyceride w/Reflex 20 mg/dL Low 35-149 [facility] Comment on above: Result Comment: TRIG ATP III CLASSIFICATION TRIG less than 150 mg/dL Normal TRIG 150-199 mg/dL Borderline high TRIG 200-500 mg/dL High TRIG greater than 500 mg/dL Very high Standard traceable to the Center for Disease Conrtrol and Prevention (CDC) test method. Performed By: #### T SH3 wRFLX, [id number], LIPID #### [facility] [address] VLDL CHOLESTEROL 4 mg/dL Normal [facility] Comment on above: Performed By: #### T SH3 wRFLX, [id number], LIPID #### [facility] [address] No Panel InformationOrdered By: Kyle Pepe on 06-30-2022 25-Hydroxy Vitamin D Total 22.3 ng/mL 30-100 [facility] Comment on above: VITAMIN D STATUS [...] HDL [Mass/Vol] 65 mg/dL 35-85 [facility] Comment on above: HDL CHOL ATP-III CLA SSIFICATION Cardiovascular RiskHDL > or equal to 60 mg/dL LOWHDL < 40 mg/dL HIGH Serum or plasma total choles terol/high density lipoprotein (HDL) cholesterol mass ratOrdered By: Kyle Pepe on 06-30-2022 Cholesterol.total/Choles terol in HDL [Mass ratio] 2.1 {ratio} <5.0 [facility] TSH DL <= 0.005 mIU/L QnOrde red By: Kyle Pepe on 06-30-2022 TSH Qn 1.66 m[IU]/L 0.45-5.33 [facility] Thyroid Stim Hormone w/Rflxo n 06-30-2022 Thyroid Stim Hormone w/Rflx 1.66 u[iU]/mL Normal 0.45-5.33 [facility] Comment on above: Performed By: #### T SH3 wRFLX, [id number], LIPID #### [address] Transfer Documentson 022 Transfer Documents [id number]# 1.00CD:127 [facility] Triglyceride [Mass/volume] i n Serum or PlasmaOrdered By: Kyle Pepe on 06-30-2022 Triglyceride [Mass/Vol] 20 mg/dL 35-149 [facility] Comment on above: TRIG ATP III CLASSIF ICATIONTRIG less than 150 mg/dL NormalTRIG 150-199 mg/dL Borderline highTRIG 200-500 mg/dL High TRIG greater than 500 mg/dL Very highStandard traceable to the Center for Disease Conrtrol and Prevention (CDC) test method. Valuables Checkliston 2021 Valuables Checklist [id number]# 1.00CD:127 Normal [facility] Vitamin D 25 Hydroxy Totalon 06-30-2022 Vitamin D 25 Hydroxy Total 22.3 ng/mL Low 30-100 [facility] Comment on above: Result Comment: NOEMÍ MIN D STATUS 25(OH)VITAMIN D RANGE (ng/mL) Deficient <20 Insufficient 20 to <30 Sufficient 30 to 100 Reference: Constantino MF,Claudio NC, Martin IBRAHIM, et al. Evaluation,treatment, and prevention of vitamin D deficiency; an Endocrine Society clinical practice guideline. JCEM. 2010; 96(7):1911-30. PERFORMED BY: [facility] [address] [id number] PATHOLOGIST HOG DROPPER JUNIE ARMENDARIZ M.D. Performed By: #### T SH3 wRFLX, [id number], LIPID #### [facility] [address] [place] [address] [facility] Acetamnphn Lvlon 06-29-2022 Acetaminophen [Mass/Vol] ug/mL Low 15-30 [facility] Comment on above: Performed By: #### 2 381747, 8428247, 6121474, 04923669, 7995980, 7522024 ####[facility] [address] [place] [address] Auto Diffon 06-29-2022 Basophils/100 WBC (Bld) 0.6 % Normal 0.0-2.[address] [facility] Comment on above: Order Comment: Order Added by Discern Expert. Performed By: #### 2 278094, 7361577, 5198738, 24068869, 8437969, 1320802 ####[facility] [address] [place] [address] Basophils/Leukocytes Auto (Bld) [Pure # fraction] 0.1 E9/L Normal 0.0-0.2 [facility] Comment on above: Order Comment: Order Added by Discern Expert. Performed By: #### 2 945049, 0351140, 9214835, 80571979, 8500963, 6684629 ####[facility] [address] [place] [address] Eosinophils/100 WBC (Bld) 2.9 % Normal 0.0-8.0 [facility] Comment on above: Order Comment: Order Added by Discern Expert. Performed By: #### 2 414801, 2692138, 6734930, 32627845, 1921318, 5050878 ####[facility] [address] [place] [address] Eosinophils/Leukocytes Auto (Bld) [Pure # fraction] 0.3 E9/L Normal 0.0-0.5 [facility] Comment on above: Order Comment: Order Added by Discern Expert. Performed By: #### 2 733190, 7083418, 2802635, 89190675, 6700789, 4200501 ####[address] [place] [address] Lymphocytes/100 WBC (Bld) 24.2 % Normal 14.0-50.0 [facility] Comment on above: Order Comment: Order Added by Discern Expert. Performed By: #### 2 734288, 6571302, 9706682, 41962244, 9541634, 7918182 ####[address] [address] Lymphocytes/Leukocytes Auto (Bld) [Pure # fraction] 2.3 E9/L Normal 1.0-4.0 [facility] Comment on above: Order Comment: Order Added by Discern Expert. Performed By: #### 2 570576, 3180111, 8510831, 08841177, 3928246, 5512992 ####[address] [place] [address] Monocytes/100 WBC (Bld) 6.5 % Normal 4.0-14.0 [facility] Comment on above: Order Comment: Order Added by Discern Expert. Performed By: #### 2 658095, 2868248, 3555132, 03298563, 6241739, 8015336 ####[address] [place] [address] Monocytes/Leukocytes Auto (Bld) [Pure # fraction] 0.6 E9/L Normal 0.2-1.0 [facility] Comment on above: Order Comment: Order Added by Discern Expert. Performed By: #### 2 374181, 1247607, 6899664, 42124887, 9561212, 8831866 ####[address] [place] [address] Neutrophils/100 WBC (Bld) 65.8 % Normal 36.0-75.0 [facility] Comment on above: Order Comment: Order Added by Discern Expert. Performed By: #### 2 656860, 9053165, 2575856, 31098804, 0290775, 5114720 ####[address] [place] [address] Neutrophils/Leukocytes Auto (Bld) [Pure # fraction] 6.4 E9/L Normal 2.0-7.5 [facility] Comment on above: Order Comment: Order Added by Discern Expert. Performed By: #### 2 845963, 6596070, 3181979, 11785613, 1806485, 1137258 ####[address] [address] CBC w/ Auto Diffon Erythrocyte distribution width (RBC) [Ratio] 11.9 % Normal 10.9-14.2 [facility] Comment on above: Performed By: #### 2 089409, 2468280, 4942225, 83991667, 9169179, 0095936 ####[address] [address] Hematocrit (Bld) [Volume fraction] 37.9 % Normal 34.0-46.0 [facility] Comment on above: Performed By: #### 2 128750, 1858153, 9511906, 83020502, 8928949, 9288543 ####[address] [place] [address] Hemoglobin (Bld) [Mass/Vol] 13.2 g/dL Normal 12.0-16.0 [facility] Comment on above: Performed By: #### 2 593081, 4403756, 0881428, 02099071, 0930929, 9375371 ####[address] [place] [address] MCH (RBC) [Entitic mass] 30.8 pg Normal 27.0-34.0 [facility] Comment on above: Performed By: #### 2 563646, 1333170, 4527410, 19337576, 2442713, 8130639 ####[address] [place] [id number] MCHC (RBC) [Mass/Vol] 34.8 g/dL Normal 31.4-36.0 [facility] Comment on above: Performed By: #### 2 026676, 3827346, 7660404, 44991286, 4024739, 5580249 ####[address] [place] [address] MCV (RBC) [Entitic vol] 88.4 fL Normal 80.0-100.[address] [facility] Comment on above: Performed By: #### 2 947413, 3171568, 8663967, 62886004, 8041176, 3349560 ####[address] Platelet mean volume (Bld) [Entitic vol] 8.7 fL Normal 6.4-10.8 [facility] Comment on above: Performed By: #### 2 738192, 8627042, 2405792, 36381739, 0128209, 9985071 ####[address] [address] Platelets (Bld) [#/Vol] 256.0 E9/L Normal 150.0-500.0 [facility] Comment on above: Performed By: #### 2 693274, 0363906, 0381079, 33797815, 0035268, 7999222 ####[address] [address] RBC (Bld) [#/Vol] 4.3 E12/L Normal 4.3-5.9 [facility] Comment on above: Performed By: #### 2 242423, 2228475, 6975527, 69032320, 7574753, 9274106 ####[address] [address] WBC corrected for nucl RBC Auto (Bld) [#/Vol] 9.7 E9/L Normal 4.0-11.0 [facility] Comment on above: Performed By: #### 2 847905, 8582368, 0973705, 78140587, 6883077, 2068406 ####[facility] [address] [place] [address] CMPon 06-29-2022 Albumin [Mass/Vol] 4.7 g/dL Normal 3.3-5.0 [facility] Comment on above: Performed By: #### 2 246748, 0658862, 3872152, 28407397, 0354057, 6387496 ####[facility] [address] [place] [address] Albumin/Globulin (S) [Mass conc ratio] 1.3 Normal 1.1-2.2 [facility] Comment on above: Performed By: #### 2 064792, 8431314, 9778316, 80040635, 9694618, 4646465 ####[facility] [address] [place] [address] ALP [Catalytic activity/Vol] 59 Int._Unit/L Normal 21-98 [facility] Comment on above: Performed By: #### 2 690502, 7164096, 5027219, 35378706, 3785442, 4603805 ####[facility] [address] [place] [address] ALT No additional P-5'-P [Catalytic activity/Vol] 17 Int._Unit/L Normal 6-46 [facility] Comment on above: Performed By: #### 2 874691, 9039382, 8973397, 07885207, 6802411, 2441288 ####[facility] [address] [place] [address] AST [Catalytic activity/Vol] 20 Int._Unit/L Normal 5-43 [facility] Comment on above: Performed By: #### 2 134613, 2162174, 6504389, 93854677, 9724183, 9535367 ####[facility] [address] [place] [address] Bilirubin [Mass/Vol] 1.1 mg/dL Normal 0.0-1.1 [facility] Comment on above: Performed By: #### 2 668460, 3025918, 3263102, 52082848, 5382297, 7555831 ####[facility] [address] [place] [address] Creatinine [Mass/Vol] 0.7 mg/dL Normal 0.5-1.3 [facility] Comment on above: Performed By: #### 2 046154, 4674319, 6551118, 01221328, 2343659, 4785904 ####[facility] [address] [place] [address] Globulin (S) [Mass/Vol] 3.6 g/dL Normal 1.4-4.[address] [facility] Comment on above: Performed By: #### 2 864530, 0916421, 2798301, 25190631, 5686922, 8860128 ####[facility] [address] [place] [address] Protein [Mass/Vol] 8.3 g/dL High 6.0-7.8 [facility] Comment on above: Performed By: #### 2 718458, 4948399, 2207160, 36276200, 7013117, 8665365 ####[facility] [address] [place] [address] Urea nitrogen [Mass/Vol] 9 mg/dL Normal 5-21 [facility] Comment on above: Performed By: #### 2 944458, 5840746, 4762088, 33880888, 1894763, 6398198 ####[facility] [address] [place] [address] Urea nitrogen/Creatinine [Mass ratio] 13 No Units Normal 10-20 [facility] Comment on above: Performed By: #### 2 694759, 4494383, 5457406, 59981056, 2098412, 5433650 ####[facility] [address] [place] [address] Anion gap [Moles/Vol] 14 mmol/L Normal 6-16 [facility] Comment on above: Performed By: #### 2 169010, 4151486, 7817695, 97494039, 6407775, 1490485 ####[facility] [address] [place] [address] Calcium [Mass/Vol] 9.9 mg/dL Normal 8.9-11.1 [facility] Comment on above: Performed By: #### 2 511598, 0863344, 5625188, 66434067, 3664476, 1314235 ####[facility] [address] [place] [address] Chloride [Moles/Vol] 102 mmol/L Normal 101-111 [facility] Comment on above: Performed By: #### 2 073671, 0397988, 1634120, 37192394, 8572405, 2134709 ####[facility] [address] [place] [address] CO2 [Moles/Vol] 24 mmol/L Normal 21-31 [facility] Comment on above: Performed By: #### 2 621482, 9100792, 3847521, 40197323, 3382999, 5118376 ####[facility] [address] [place] [address] Glucose [Mass/Vol] 103 mg/dL Normal 55-199 [facility] Comment on above: Result Comment: If t his glucose result represents a fasting glucose, interpretation should refer to the following reference range: 55-99 mg/dL Performed By: #### 2 534524, 9608465, 4004838, 68964210, 7672577, 6826364 ####[facility] [address] [place] [address] Potassium [Moles/Vol] 4.1 mmol/L Normal 3.5-5.3 [facility] Comment on above: Performed By: #### 2 775609, 4974964, 2472614, 03184288, 1912138, 7379533 ####[facility] [address] [place] [address] Sodium [Moles/Vol] 136 mmol/L Normal 135-145 [facility] Comment on above: Performed By: #### 2 074958, 5674042, 3803360, 67579436, 6105366, 9925540 ####[facility] [address] [place] [address] Consent for Treatmenton 06-04 Consent for Treatment [id number]#1 .00CD:127 Normal [facility] ED Note-Physicianon 06-29-20 ED Note-Physician Basic Information Time Seen: Arnoldo Wellington PA-C 06/29/2022 17:39 Chief Complaint pt arrives via [facility] for suicidal ideations. pt states she took [...] follow-up and disposition. Patient was evaluated by [facility]. She was accepted for placement at [facility] by Dr. Pepe. Assessment/Plan 1. Suicidal ideation [...] % (06/29/22::) Lymph Auto: 24.2 % (06/29/22::00) [place] Auto: 6.5 % (06/29/22::) Eos Auto: 2.9 % (06/29/22::) Basophil Auto: 0.6 % (06/29/22:) Neutro Absolute: 6.4 E9/L (06/29/22::) Lymph Absolute: 2.3 E9/L (06/29/22::) [place] Absolute: 0.6 E9/L (06/29/22::00) Eos Absolute: 0.3 [...] Low (10 (more content not included)... Normal [facility] Comment on above: Result Comment: Elec tronically Signed By: Arnoldo Wellington PA-C\.br\Date and Time Signed: 06/29/22 18:19 EDT\.br\Electronically Co-Signed By: Lili Hollis DO\.br\Date and Time Co-Signed: 06/29/22 20:35 EDT\.br\Electronically Co-Signed By: Sai Vasquez DO\.br\Date and Time Co-Signed: 06/30/22 19:05 EDT Ethanolon 06-29-2022 Ethanol [Mass/Vol] mg/dL Normal <=7 [facility] Comment on above: Performed By: #### 2 058894 ####[facility] [address] [place] [address] Rapid COVID Antigen ([facility])on 06-29-2022 Rapid COV Int NEG Ctl Pass Normal [facility] Comment on above: Performed By: #### 2 [id number] ####[facility] [address] [place] [address] Rapid COV Int POS Ctl Pass Normal [facility] Comment on above: Performed By: #### 2 [id number] ####[address] [place] [address] SARS-CoV+SARS-CoV-2 (COVID-19) Ag IA.rapid Ql (Resp) Not detected Normal Not Detected [facility] Comment on above: Result Comment: The POW? System for Rapid Detection of SARS-CoV-2 is [...] or revoked sooner. Performed By: #### 2 [id number] ####[address] [place] [address] ADMITTED TO INTENSIVE CARE UNIT FOR CONDITION OF INTEREST:FIND:PT: NO Normal [facility] Comment on above: Performed By: #### 2 [id number] ####[facility] [address] [place] [address] EMPLOYED IN A HEALTHCARE SETTING:FIND:PT: NO Normal [facility] Comment on above: Performed By: #### 2 [id number] ####[facility] [address] [place] [address] FIRST TEST FOR CONDITION OF INTEREST:FIND:PT: YES Normal [facility] Comment on above: Performed By: #### 2 [id number] ####[facility] [address] [place] [address] HAS SYMPTOMS RELATED TO CONDITION OF INTEREST:FIND:PT: NO Normal [facility] Comment on above: Performed By: #### 2 [id number] ####[facility] [address] [place] [address] HOSPITALIZED FOR CONDITION OF INTEREST:FIND:PT: NO Normal [facility] Comment on above: Performed By: #### 2 [id number] ####[facility] [address] [place] [address] STATUS:FIND:PT: NO Normal [facility] Comment on above: Performed By: #### 2 [id number] ####[facility] [address] [place] [address] RESIDES IN A CONGREGATE CARE SETTING:FIND:PT: NO Normal [facility] Comment on above: Performed By: #### 2 [id number] ####[facility] [address] [place] [address] Salicylateon 06-29-2022 Salicylates [Mass/Vol] mg/dL Low 6-29 [facility] Comment on above: Performed By: #### 2 374953, 9903585, 4263669, 54494065, 3292102, 5886534 ####[facility] [address] [place] [address] U BetaHcg Qualon 06-29-2022 HCG.beta subunit (U) [Moles/Vol] Negative Normal [facility] Comment on above: Performed By: #### 2 4558292 ####[facility] [address] [place] [address] U Drug Screenon 06-29-2022 Amphetamines Screen method >1000 ng/mL Ql (U) Negative Normal Negative [facility] Comment on above: Result Comment: Nega tive Cutoff: <1000 ng/mL Performed By: #### 2 123409 ####[facility] [address] [place] [address] Barbiturates Screen Ql (U) Negative Normal Negative [facility] Comment on above: Result Comment: Nega tive Cutoff: <200 ng/mL Performed By: #### 2 729216 ####[facility] [address] [place] [address] Benzodiazepines Ql (U) Negative Normal Negative [facility] Comment on above: Result Comment: Nega tive Cutoff: <200 ng/mL Performed By: #### 2 351657 ####[facility] [address] [place] [address] Cocaine Ql (U) Negative Normal Negative [facility] Comment on above: Result Comment: Nega tive Cutoff: <300 ng/mL Performed By: #### 2 1975[address] ####[facility] [address] [place] [address] Opiates Screen Ql (U) Negative Normal Negative [facility] Comment on above: Result Comment: Nega tive Cutoff: <300 ng/mL Performed By: #### 2 289995 ####[facility] [address] [place] [address] Phencyclidine Screen method >25 ng/mL Ql (U) Negative Normal Negative [facility] Comment on above: Result Comment: Nega tive Cutoff: <25 ng/mL These drug screen results are to be used for medical (i.e., treatment) purposes only. Unconfirmed drug screening results must not be used for non-medical purposes (e.g., employment testing, legal testing). Performed By: #### 2 173923 ####[facility] [address] [place] [address] Tetrahydrocannabinol Screen method >50 ng/mL Ql (U) Negative Normal Negative [facility] Comment on above: Result Comment: Nega tive Cutoff: <50 ng/mL Performed By: #### 2 491711 ####[facility] [address] [place] [address] eGFRon 06-29-2022 GFR/1.73 sq M.predicted among blacks MDRD (S/P/Bld) [Vol rate/Area] mL/min/{1.73_m2} Normal >=59 [facility] Comment on above: Order Comment: Order added by Discern Expert. Result Comment: eGFR is race adjusted. AA=. Performed By: #### 2 634158, 2605380, 4811842, 69633432, 2646642, 7360633 ####[address] [place] [address] GFR/1.73 sq M.predicted among non-blacks MDRD (S/P/Bld) [Vol rate/Area] mL/min/{1.73_m2} Normal >=59 [facility] Comment on above: Order Comment: Order added by Discern Expert. Result Comment: Womens Volleyball Coach vadim kidney disease could be indicated at eGFR's of less than 60 mL/min/1.73m2. Kidney failure is indicated at less than 15 mL/min/1.73m2. Performed By: #### 2 573973, 4401248, 4567743, 41394588, 8891244, 7206253 ####[facility] [address] [place] [address] Coding Summary.on 06-16-2022 Coding Summary. CD:[id number]:[id number] G h0bWw+PGhlYWQ+VX7WBLY zY95asLKrfC8PH2hTNA5G DFOSRZPXWG4OWA4bdQR4U HmxV4QmbvWs RfavyOZvLH36PPh5TFE5f VudOCbtlS0dgKUiB6j7Hb WkEE71mV90PTrcEXBvHfU 3LjZpbjsgbWFy L7kqHfUedQWyDam+PHRhY mxlIHdpZHRoPScxMDAlJy CnxVduJE7oWy3tSZOzMQX vbGxhcHNlOiBj z5oiSXNtGGufRJ3urGnfY 5GfqZB7XDAce4s2Sv46bP I+CVZlUGW5zWojCKacr38 2StWbj2wwOMT7 tCFsGUijXWM4A83cs0C6K FUuQFPdGQE0tUW1xF0giH krmzkzC9MiwPXfNsH0SVR 1kTLhmN3tnDvd klqtqT1wLuj+Q72ZUT9PK DYWKX3XUlb9T7YlOjhymJ I+TU61SADcVI43xRUbtDD sf1zgsIv8ZeNb WRPlFJP5qUmwSSywd0NbY EXeC92jhHIua3I7SCUepN nagCWyUyKeaSD5uT6cKBy nmhieq7fsojbv Rapdu2qjdt30gW30E39pK XdhPHNcQLX3ZUXgQOOigH cxat8piK8yIq9+CQasq5v to4jjlKz0SwMv MHUbtwFszCkoCEX8v1DmK n34P3AxkQnry2ZxQfy3wl 25zSVzf4I0bWA4XZqxYHI azZ4tBUntGdJ4 KLVzHpNcmK49wSSzGScdX y4etZlzeEzhRI2gDLJhke hqGNEkeZ3kLPCqlODiwJk vHC8aCZJbsxjf x639GqTmJGU7FKLrzOYdO 2YmgI0vPpAmJEXfZPEiZ9 HikNCkOZaiK863DAulPjX 5SDQtquHiM7Rx XHResVprCkT4z0S4Mv8Sw 6RyrgusGEQ3LWroYNQnMd G5QcRpJuH7A0AfWja5PCN wzOjjRZ7eK0Zd QXVyylstxilavAE7ELOeY TFcjV29mTQfMEosIb7ac3 W0y681YAYtARAnpS55Pu7 udDogMTBwdCBU fL5xxlgss0gixakqFsYkB KFpGKc9YCc8HFWspAfoOh ZuQST9PjE6FUV9fVOcrY3 naPlzkaeylM5o Oyc+B02rcL0pNZZ8IBJ1z oioDYFnbtCjXT73CE55A3 RyPjwvdGFibGU+PGRpdiB vsWtwYA2pXzRo k3gdb1SsOMxaQ0NhXJQwG WcfScs8UUSpUBY1hGP8fL 0yPITfLTfon6U3mGM0L9W uliGozb8rt9ia NJTuGOxeX10jsVAim6H2G ABdpND4QPJxwDfqIhKdqR 93Oyc+FWWoaIyoz2KpXkw ns8kcp6wwpOe4 QtDbFWSutjDrcHvqRDX0i 7RzJn84O34lKPelHYFyWY XbINAxQHGijQwdog3jjY2 wIi8+PGNvbCB3 pDN8cX3tQXZlHrI2ACcqZ 056JqAimMPqEsjva7tmy0 mewNq9JmCeYXMziqZbvFv rRBU7v3XyXu10 J01vJQxuMZQwZVQgJDWsV XLzfQyraf6gxZ0qNo9+PC 4yv1neqr68uC60qVH+PHR xXDZ5eXhnKRmt AXVxaQ2sDYusBjR9ZFRnX dAkbW00uTXxWQseNx5jrE aejHrhCR8rTVPbzomdc75 1KkBps0dfQDGg dTTeTZwiWOZ4X15pj8X0T CBfPQXfSKV5hBY6mE9xgH lnbjogbGVmdDsgdmVydGl fUBsqGJdlZ760 IHRvcDsnPlBhdGllbnQgT hAtUQp0G7FwNsk8EQZzpI baGW1geOBiKEwhFj5pbSa xkDzzNM2dIGAr jinpb019EqFdg8doHWPyw SBvEYozWAD4R03iq2I7NB XwWZGbDBE3zDR5vN0wvBu nbjogbGVmdDsg kpVpmSebYMwrMJqwM385S HRvcDsnPkJpcnRoIERhdG O6AZ92TB33tSPsn2N6rSV 0W3MlYKUfkxag qdkmrQF7VJHlHRDzwR03Q m2tlXvoVv6tDCGyIIA5EV FwkBBjU1LazH0tEiCqHRB eDJMaV9CvrVBs AHooN068PHwtAsJ0EGWpo dElS3JdXQIugCljIeK2a5 N8Dw5JT0W0JB28BG53cHG cn3U8xRK4R0Py LTTwpsxejicknUG9RQNeQ ULbfR45Fp3cnGznGj7rIQ IwAHY6WRNydAMrR8EmsD0 yOiAjMDAwMDAw J2PigKPzAKrtZ601YBdnF aD9ZLWbnkVqR1DiAMCqzU xyKkP8j5D7Bn0SMDx9JY4 5VW79qXEeg8Q8 dWC0F5OgJBAtuoquukehq XE4PIHgFTSksV79Dx2yuO hbZs3lHLKiWBG2ETClpPE vN6QmpX7cYwFe CUVwHOYyO6BrpTUjMMmcW 209SVkuDiK9FXRwvoMxM8 JnCJGweJpwEeR5u1G1Lb0 TVMQvGC84ZTF7 iPR6GU71RX86H2FhKrqyc GFibGU+PHRhYmxlIHdpZH RoPScxMDAlJyBzdHlsZT0 pXk4iFDUeNFPo uYwaiQJfEiQbs8itRREuU VhuMW0olIyrY9UzrXG9LS Uds7w6Jo62J00hU7StwDJ +YAEsbWI1uVT7 gD8oNjRyGaU6HYolS535R lIpzAUtOlzxt6jln0wzrE c9PpI1QPVjgbLcyBglKKC 0e7SbSk18D25k IHdpZHRoPSIxNSUiIHZhb Hwnrg9cfH2wEh3+PGNvbC T5jOZ6tO5sBiDvVmA2SLp vE356IqDzyWMb Qpexx1mcc6ikcIs9EsMyF IOgnxMjiKpxTAM6j7JhSr 35N0SlvUpic9ElSno7oa7 8hBWut1R9zJM9 D3LnDXQrevibrYTnwJbnT G7jVEHcmrhdNIQawI9aZI UgD6o8TcQhJxC6NMdgO0J juuD6PCUfuLPn KWfyUCD6N07dp5Z0YXBpY PYcYCU5hYK1gR2ntUouak ogbGVmdDsgdmVydGljYWw nFHrxK090PMSr yGxfMBNwwE4nTZOwbPShq HsqFH7hZLKhttyoUfuKMh MKEQWQIZvNL6KzLQynfLQ +ULWmSJK7uOpb OLorOXHptS3zSXKuT7u3H iLxTyV8NQgjY4ZoPSLnyo caKo17tL2zUsIsWfJ9IMa mV5BnxrW5UHIr sKVsKWkuEGN5Q92ds0Q9S ROiTTObVOT7zTG9hW2qaH lnbjogbGVmdDsgdmVydGl cLHsxYHmxJ085 UEBknSpgIrZ2RpB1JgC8T Nc9U0PfBvf4PAExkLzvUG 1eeAJdDQkoHz3poLkjcGm qOQ8wZSMojros NJQtvN4lYMAsvGHqwZvvW V1dDRDtdhvka929PbDxBP B4NEZtlDJpC2LcfX6iWvR uOQRqUTGkL8Tu wNTiSWwzT862LUegVxH7Z YKsdoDiB1LmDWPdyXfiCc R0e3U1Ts2aZHSATADbnqy vdGQ+PHRkIHN0 xQrnBBqgMCIkcO8pNNJwW 9v6DdAjZaW2PPteD4XbYQ GxrajpCt88eZ7hZlIfZwR 9WOjtP0JthgI1 DLMbwPAqQPewKAS3R54vd 6U1CQLsYVZvPDL9bTA4uD 1hbGlnbjogbGVmdDsgdmV ydGljYWwtYWxp B451DSDnoLrhJqDbcKKdG TwvdGQ+VXPaSUR1pLmhWP ahNKHgmB2jXMAwJ0l9TpJ bYvT5FSqfE0Ic RIIbptoiIv52mT5jOkTuO dV9XWdcJ3BmixI4JHUibY BhHOmlRPP0N01dn7Z1PHI wBULdBIX1bMX8 wQ1hnArooqvyoNQmmAxqb lWnrWpsQNpdBDzqJ244AH LxjIzyUf50dWBhhPmsznR 3P9GdYvhwrOI+ ST84YNAyTR48rGBlbWMom 1oshTm8UdRhSOLwUFO4wA bhHUaat1KaZVIhR03tzII fl9F5IKBpuJwl eOJlYiHqoVD0fP1uOBtru bdem6ghysfuCqxgy4vdaz 32vO99D44bOIbePUDpGBC zMCUiIHZhbGln ru6hnI6eIv6+AZAxkWC5p NC7xU3sEkXaMrL9YCctC9 84XgQqpFLqQebrt9wsg3i xvNf5OcDlMDIg vkUntZezUQX6i1XfYf37P 29sIHdpZHRoPSIyMCUiIH GdpOdtlh7lyI8lJu6+PC9 pp3vndy03iH76 dHI+ZKFvZQJ6jYgtDDwzE JPyhQ4mDBmgTsW1MGWbKk NntS08oUWuAQosEe0ceGj zoVofMF0rPDKc grxgz863AqEpr2iyEYMkl NQwZDxbGLH0U68el1U2AP ObCOLoTPZ9mVN1hM6moFp nbjogbGVmdDsg hfLjqQuiSZstKEigD814U WYzsHvsWlJcdPRjQ8lhbn EKNM7wDvdudZM+PHRkIHN 0eWxlPSdwYWRk pU9yLMPsX1a2NzViKwB2R VaeJ4PazoL7UGWtyFBdQC MdeLAYdY8eacohn1xzcfs gIzAwMDAwMDt0 FXa9WJOwcQscXgJhRSB9A qT6RXW7tRJslG7gfYxiwh awxP8sExx+RklOOjwvdGQ +WRZdUKJ5vXzc IMfxZJVscJ0dPVSiM1b7V rQjFaZ5VLphV1IehyA1YL PqaMRiIUSujRPDpF6ffel bo5rpqjhnTfHm SWDbVQa0XVk1WLUkvSmrM vJyDAY6IrL3ZQC8qEEdjQ 6snVlgdrdkrE9wZau+TVJ OOjwvdGQ+PHRk GON8hBjgIWpyPZAejO2yZ RMmP0c4ZyYzTgJ3QZzwS4 IkmvZ8YZLyrSRtRPLlbQK LxT8mzzget5ja fjqaOcVcMFGwZHr6QMp0X KSvcXydKrEsYMG0YtP6II O1oUSwoD3zmKzbpeifoD8 wOyc+YRW8VSY9 LX98BH57S4KgCljmjKLka +PHRhYmxlIHdpZHRoPS ufHPLeGyDxdDjxFA2rFa0 yZGVyLWNvbGxh cHNl (more content not included)... Normal [facility] CT Head or Brain w/ + [...] 300 Contrast amount in ml's: 100 Normal [facility] Consent for Treatmenton 06-03 Consent for Treatment [id number] 210 [id number] Normal [facility] URon 04-04-2022 , QUAL Negative Normal NEGATIVE [facility] Comment on above: Performed By: #### P REGU #### [facility] [address] [place], [place] [address] Dr. Jorge Perez PAP ACOG PANEL 2: 21 to 29on 03-24-2022 . . Normal [facility] Comment on above: Performed By: #### [id number] #### [facility] [address] [place] [address] Dr. Jorge Perez DIAGNOSIS: Comment Normal [facility] Comment on above: Result Comment: NEGA TIVE FOR INTRAEPITHELIAL LESION OR MALIGNANCY. THIS SPECIMEN WAS RESCREENED PART OF OUR WEAVING INSPECTOR PROGRAM. Performed By: #### [id number] #### [facility] [address] [place] [address] [address] Jorge Perez Methodology: Comment Normal [facility] Comment on above: Result Comment: This liquid based ThinPrep(R) pap test was screened with the use of an image guided system. Performed By: #### [id number] #### [facility] [address] [place] [address] Dr. Jorge Perez Note: Comment Normal [facility] Comment on above: Result Comment: The Pap smear is a screening test designed to aid in the detection of premalignant and malignant conditions of the uterine cervix. It is not a diagnostic procedure and should not be used as the sole means of detecting cervical cancer. Both false-positive and false-negative reports do occur. . Performed By: #### [id number] #### [facility] [address] [place] [address] Dr. Jorge Perez Performed by: Comment Normal [facility] Comment on above: Result Comment: [employer]ent ([employer]) Performed By: #### [id number] #### [facility] [address] [place] [address] Dr. Jorge Perez QC reviewed by: Comment Normal [facility] Comment on above: Result Comment: Gurpreet Khanna Entertainment & Media Correspondent (ASCP) Performed By: [id number] #### [facility] [address] [place] [address] Dr. Jorge Perez Reflex Criteria: Comment Normal [facility] Comment on above: Result Comment: The HPV DNA reflex criteria were not met with this specimen result therefore, no HPV testing was performed. . Performed By: #### [id number] #### [facility] [address] [place] [address] Dr. Jorge Perez Specimen adequacy: Comment Normal [facility] Comment on above: Result Comment: Sati sfactory for evaluation. Endocervical and/or squamous metaplastic cells (endocervical component) are present. Performed By: #### [id number] #### [facility] [address] [place], [place] [address] Dr. Jorge Perez Age Gdln ACOG Testing 21-29 Normal [facility] Comment on above: Performed By: #### [id number] #### [facility] [address] [place], [place] [address] Dr. Jorge Perez Vital Signs Date Time Vital Sign Value Performing Clinician Faci lity 07-03-2022 07:30-0400 Body temperature 97.8 [degF] MD Shannon Glez Work Phone: [facility] 07-03-2022 07:30-0400 Diastolic blood pressure 81 mm[Hg] MD Shannon Glez Work Phone: [facility] 07-03-2022 07:30-0400 Heart rate 93 /min MD Shannon Glez Work Phone: [facility] 07-03-2022 07:30-0400 Respiratory rate 16 /min MD Shannon Glez Work Phone: [facility] 07-03-2022 07:30-0400 SaO2% (BldA) [Mass fraction] 98 % MD Shannon Glez Work Phone: [facility] 07-03-2022 07:30-0400 Systolic blood pressure 120 mm[Hg] MD Shannon Glez Work Phone: [facility] 06-30-2022 15:55-0400 Body height 160.02 cm MD Shannon Glez Work Phone: [facility] 06-30-2022 03:18-0400 Body weight 57.15 kg MD Shannon Glez Work Phone: [facility] Encounters Encounter Date Encounter Type Care [...] 06-06-2023 End: 06-07-2023 ambulatory Papi Lilly Facility:[facility] [place] Start: 06-04-2023 ambulatory [facility] Start: 04-24-2023 End: 04-24-2023 ambulatory [facility] Start: 12-25-2022 End: 03-26-2023 ambulatory FIONA GRIER Facility:[facility] Start: 12-09-2022 End: 12-10-2022 ambulatory Katherin PETERSEN Facility:[facility] [place] Start: 12-04-2022 End: 12-05-2022 ambulatory Sunshine Mejias Facility:[facility] [place] Start: 11-13-2022 End: 11-13-2022 ambulatory AUDREY MORGAN Facility:[facility] Start: 10-11-2022 End: 10-12-2022 ambulatory DAMI CHAPIN Facility: Start: 09-06-2022 End: 09-06-2022 ambulatory FIONA GRIER Facility: Start: 06-30-2022 End: 07-03-2022 Evaluation and management of inpatient Kyle Pepe Facility:[facility] Start: 06-30-2022 End: 07-03-2022 Evaluation and management of inpatient MD Shannon Glez Work Phone: [facility] [place] [address] Start: 06-29-2022 End: 06-30-2022 Emergency department patient visit Sai Vasquez Facility:[facility] Start: 06-12-2022 End: 06-13-2022 ambulatory Elvis Quinn Facility:[facility] Start: 04-04-2022 End: 08-02-2022 ambulatory FIONA GRIER Facility:[facility] Start: 03-20-2022 End: 03-20-[address] PALACIOS DANAY Facility:[facility] Plan of Treatment Date Care Activity Detail Author Start: 07-03-2022 [facility] Start: 06-30-2022 Referral to Media/Instructional Designer [facility] Start: 06-30-2022 Hospital admission [facility] Patient Education Anxiety, Adult (DC) [facility] Behavioral Health DC Instructions [facility] Work Phone: Patient referral [facility] Work Phone: Payers Date Payer Category Payer Unknown [id number] 2022 Medicaid [id number] 2022 Medicaid [id number] 2022 Unknown [id number] 2022 Self-pay 1997 Unknown [id number] 2.16.84 [id number] 1997 Unknown [id number] 2.16.84 0.1.146795.3.579.2.593 1997 Unknown [id number] 2.16.84 0.1.581776.3.579.2.593 1997 Unknown [id number] 2.16.84 0.1.719696.3.579.2.593 1997 Unknown [id number] 2.16.8 40.1.423148.3.579.2.727 1997 Unknown [id number] 2.16.8 40.1.417944.3.579.2.727 1997 Unknown [id number] 2.16.8 40.1.758938.3.579.2.727 1997 Unknown [id number] 2.16.8 40.1.834835.3.579.2.727 1997 Unknown [id number] 2.16.8 40.1.459006.3.579.2.727 1997 Unknown [id number] 2.16.8 40.1.832648.3.579.2.727 1997 Unknown [id number] 2.16.840 .1.122353.3.579.2.9 1997 Unknown [id number] 2.16.840 .1.321592.3.579.2.9 1997 Unknown [id number] 2.16.840 .1.991571.3.579.2.1258 1997 Unknown [id number] 2.16.840 .1.236024.3.579.2.9 1997 Unknown [id number] 2.16.840 .1.685493.3.579.2.9 1997 Unknown [id number] 2.16.840. 1.344857.3.579.2.1259 1959 Unknown [id number] 1959 Unknown [id number] Unknown [id number] 2.16.8 40.1.413299.3.579.2.531 Social History Date Type Detail Facility Start: 06-30-2022 Tobacco smoking stat us MNIS Never smoked tobacco (finding) [facility] Start: 1995 Sex Assigned At Female F [facility] Goals Date Patient Goal Desired Activity /State Functional Status Date Assessment Result Facility 07-03-2022 Functional status Patient at Baseline [facility] Work Phone: Mental Status Date Assessment Result Facility 07-03-2022 Cognitive function Cognitive Sta tus Patient at Baseline [facility] Work Phone: Clinical Notes 04-04-2022 [...] an injury in September. 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 On the way to ER is reduced on its own. Since then she has pain with ambulation and edema in the left knee worse with walking. She saw an Ortho in [facility] and MRI completed which she was informed [...] be an additional personal documentation from me. [facility] 04-24-2023 Note -------- Attestation signed by Ronny [...] Patient presents with Left Knee - Pain [facility] Injury, meniscus tear injured 09/06/2022 04/24/23 Priyanka Hardin is a 28 y.o. year old female presenting for evaluation of left knee pain that first started after an injury in September. 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 On the way to ER is reduced on its own. Since then she has pain with ambulation and edema in the left knee worse with walking. She saw an Ortho in [facility] and MRI completed which she was informed [...] be an additional personal documentation from me. [facility] 11-13-2022 Note HNO ID: [id number] Author: RT Jarad(R) Service: ? Author Type: [...] RT Jarad(R) November 13, 2022 9:43 AM [facility] 09-06-2022 Note PROCEDURE: XR KNEE L T 4V or > HISTORY: Pain in left knee ; acute COMPARISON: None. FINDINGS: BONES:No fracture, acute abnormality, or significant arthropathy. SOFT TISSUES:No visible soft tissue swelling. EFFUSION:None visible. OTHER: Negative. IMPRESSION: 1. Normal examination. Electronically authenticated by: BRYAN ESPINO Date: 2022-09-06 13:41 [facility] 07-03-2022 Discharge summary Note Date/Time July 03, 2022 11:08am [facility] [address] [place] [address] Discharge Summary Signed Patient: Priyanka Hardin MR#: [id number] : 1995 Acct:[id number] Age/Sex: 27 / F Adm Date: 2 Loc: Room: [address] [place] [address]: Kyle Pepe MD Copies to: [...] 27 year old female that was admitted[facility] for attempted overdose. Patient states she took [...] Psych nurse practitioner and the therapist at [facility] in [place].Patient states she has been diagnosed with generalized [...] Reports childhood trauma Living: With boyfriend Employment: [employer] Patient was started on Cymbalta. She [...] No activity restrictions. Instructions: Anxiety, Adult (DC), [facility] Behavioral Health DC Instructions Stand Alone Forms: Work/School Release Form Prescriptions: New trazodone 50 mg Tablet 50 mg PO QHS PRN (Reason: Insomnia) Qty: 30 0RF duloxetine 30 mg Capsule,Delayed Release(Dr/Ec) 30 mg PO QHS 30 Days Qty: 30 0RF Continued Ajovy Autoinjector 225 mg/1.5 mL Auto-Injector 225 mg SUBCUT QWEEK Follow Up: [facility] [Outside] [facility] [Outside] - 07/07/22 10:45 am (Psychiatry: 07/07/22 @ 10:45am with Fiona Grier CNP Therapy: Sunday07/14/22 @ 11:00am with [place] ) Documented By: Kyle Pepe MD 07/03/22 110 Signed By: <Electronically signed by Kyle Pepe MD> 07/03/22 0169 [facility] Work Phone: 1(488) 945-349610-30-2022 Progress note Author Kyle Pepe [facility] July 02, 2022 12:56pm Note Date/Time July 02, 2022 1 2:55pm [facility] [address] [place] [address] Psychiatry Progress Note Signed Patient: Pryianka Hardin MR#: [id number] : 1995 Acct:[id number] Age/Sex: 27 / F Adm Date: 2 Loc: Room: [address] [place] [address] Type : ADM IN Attending Dr: Kyle [...] By: <Electronically signed by Kyle Pepe MD> 07/02/228 [facility] Work Phone: 1(450) 412-846710-29-2022 Progress note Author Kyle Pepe [facility] July 01, 2022 12:46pm Note Date/Time July 01, 2022 9 :01am [facility] [address] [place] [address] Psychiatry Progress Note Signed Patient: Priyanka Hardin MR#: [id number] : 1995 Acct:[id number] Age/Sex: 27 / F Adm Date: 2 Loc: Room: 1A8060-6 Type : ADM IN Attending Dr: Kyle [...] therapy. She follows with outpatient counseling at [facility]. Continue Cymbalta 30 mg daily Monitor suicidal behaviors for safety of self (15-minute face check) Recommend attending groups and psychoeducation for building coping skills Risks, benefits and indications of medications were discussed with the patient Documented By: Areli Barbosa DO RES 07/01/22 0901 Signed By: <Electronically signed by DO CHERRY Barbosa> 07/01/22 1041 <Electronically signed by Kyle Pepe MD> 07/01/22 1246 [facility] Work Phone: 1(802) 109-555110-28-2022 History and physical note Author Kyle Pepe [facility] June 30, 2022 4:32pm Note Date/Time June 30, 2022 9 :25am [facility] [address] [place] [address] Psychiatry H&P Signed Patient: Priyanka Hardin MR#: [id number] : 1995 Acct:[id number] Age/Sex: 27 / F Adm Date: 2 Loc: Room: [address] [place] [address] Type: ADM IN Attending Dr: Kyle Pepe MD Copies to: MD Shannon Gillespie MD, DO, RES~ Date of Service: 06/30/2022 HPI History of Present Illness History of present illness: Ms. Hardin is a 27 year old female that was admitted to [facility] for attempted overdose. Patient states she took [...] Psych nurse practitioner and the therapist at [facility].Patient states she has been diagnosed with [...] Reports childhood trauma Living: With boyfriend Employment: [employer] Mental status exam Appearance: Grossly normal [...] Documented By: Areli Barbosa DO, RES 06/30/22 0971 Signed By: <Electronically signed by RES Areli Barbosa> 06/30/22 1211 <Electronically signed by Kyle Pepe MD> 06/30/22 1632 [facility] Work Phone: 1(355) 689-726508-02-2022 NotePROCEDURE: XR WRIST LT MIN 3 V HISTORY: Bone injury ; acute left wrist pain after falling COMPARISON: None. FINDINGS: BONES:No fracture, acute abnormality, or significant arthropathy. SOFT TISSUES:No visible soft tissue swelling. EFFUSION:None visible. OTHER: Negative. IMPRESSION: 1. No acute bone abnormality. Electronically authenticated by: BRYAN ESPINO Date: 2022-04-04 [facility]16[facility] Onset Date Resolution Status Anxiety acute Suicidal ideation acute Suicide attempt by drug overdose acute [facility] Work Phone: Hospital Discharge instructions Additional Instructions Regular diet. No activity restrictions.[facility] Work Phone: Summary Purpose Family History [...] section and content) DATE CREATED AUTHOR 07/03/[address] [facility] DATE CREATED AUTHOR AUTHOR'S ORGANIZ ATION 10/12/2022 [facility] DATE CREATED AUTHOR AUTHOR'S ORGANIZ ATION 11/15/2022 [facility] DATE CREATED AUTHOR AUTHOR'S ORGANIZ ATION 06/09/2023 [facility] DATE CREATED AUTHOR AUTHOR'S ORGANIZ ATION 06/10/2023 Rex Ramos [facility] DATE CREATED AUTHOR AUTHOR'S ORGANIZ ATION 09/06/2023 [facility] Care Teams (unrecognized sec tion and [...] BE BASED ON THE PRIMARY CLINICAL RECORDS. [facility] [employer] provides no warranty or guarantee of the accuracy or completeness of information in this document.
--- NOTE | 2023-09-14 14:56 | PC.NURSE ---
Priyanka, S.O. and 5 day old daughter Rosanna arrive for follow up. Parents report we are doing ok Both tired but feeling better each day as new routine figured out. Priyanka doing well S/P C/S. States taking percocet every 8-9 hours. Denies use of motrin or Tylenol for pain control. Discussed use of both and appropriate dosing for each. Verbalized understanding. Incision clear, no redness or drainage noted. Slight edema noted above incision line, no redness or added warmth. States appetite could be better , encouraged to focus on protein, fruits and veggies for healing. Edema of lower legs evident. Encouraged left sided rest and increase in water intake. Verbalized understanding. Bilateral breasts tender, engorged today with noticed softening after feed. States feeds baby every 1-3 hours as demands, usually 1 breast per feed, occasionally both. Discussed complete emptying of breasts to aid in supply. Bilateral nipples tender with healing of excoriated areas evident. NB Rosanna quiet and content in car seat. Color slight jaundiced. Resp unlabored. Assessment WNL and VVS. Bili 11.1 by transcutaneous meter. Parents report 4 wets and 2 green stools today. Has previously been seen at PCP office with NB earlier today. No concerns noted. Baby to breast, off and on during latch until settles into feed. Slight lip tie noted, lip able to roll up easily. Does not appear to impact breast feeding at this time. Family to return 09/19/2023 for further support as requested. Leaves ambulatory without complaints.
[2023-09-14 15:02] VITALS: BP 134/81; PULSE 103; RESP 20; TEMP 36.9; O2SAT 97
== END 2023-09-14 14:50 | disposition home or self-care (01) ==
LOC: FBCO 07:54
PROVIDERS: Visit Provider Obstetrics & Gynecology
DX: Z39.2 Encounter for routine postpartum follow-up (principal)

== ENCOUNTER 2023-09-19 08:52 | Outpatient (OUT) | payer MEDICAID, SELFPAY ==
--- OUTSIDE RECORDS SUMMARY | 2023-09-19 09:00 | XMS_ITS | CCD ---
Author Name Unknown Address [address] [place] [address] Organization [facility] Care Team Providers Care Marble Installation Helper Name Role Phone Kyle Pepe Attending Unavailable Kyle Pepe Admitting Unavailable Shannon Glez Primary Care Unavailable MD Shannon Glez Primary Care Provider [phone] MD Kyle Pepe Admit Provider [phone] MD Kyle Pepe Attending Provider FIONA GRIER Primary Care Unavailable LIZ, DR CRAVEN Admitting Unavailable LIZ, DR CRAVEN Attending Unavailable SRINIVAS, DR BRYAN Hernandez Consulting Unavailable INDIA SAGASTUME Consulting Unavailable LIZ, DR CRAVEN Consulting Unavailable DAMI CHAPIN Admitting Unavailable DAMI CHAPIN Attending Unavailable [facility] Primary Care Unavaila liz [...] with voice recognition software. Occasional wrong-word or ?hdyyx-r-znds? substitutions may have occurred due to the [...] also states she does not know what fzmn-jcq-moiiteb medications she is able to take. She [...] May use flonase for symptomatic tx. Contact general medical practitioner to confirm flonase is safe usage in addition to plain robitussin. Follow up with PCP if not improving over next --- days or significantly worsening symptoms. Patient verbalized understanding of tx plan. Ordered: fluticasone nasal, 1 spray(s), Nasal, BID for 7 day(s), 16 gm, Refill(s) 0, each nostril, [facility], 159, cm, 06/06/23 11:45:00 EDT, Height/Length Dosing, 76, kg, 06/06/23 11:45:00 EDT, Weight Dosing Follow-up With When Contact Information Newton DUNCAN, Shannon [place] [address]- Additional Instructions: Patient Education Upper Respiratory Infection, Adult Problem List/Past Medical History Ongoing Acute medial meniscus tear of left knee Anxiety Chlamydia Episodic mood disorder. Lower back pain Posttraumatic stress disorder Suicide attempt Historical No qualifying data Procedure/Surgical History Dilation and curettage. Medications Flonase 0.05 mg/inh Oriska, 1 spray(s), Nasal, BID Allergies No Known Allergies Social History Alcohol - Low Risk, 12/09/2022 Current, 1-2 times per month, Household alcohol concerns: No., 12/09/2022 Substance Abuse - Low Risk, 12/09/2022 (more content not included)... Normal [facility] Comment on above: Result Comment: [...] to help relieve symptoms, such as: ? Ejrp-dnx-wxbrieo cold medicines. ? Cough suppressants. Coughing is [...] other clear broths. General instructions ? Take clui-zio-nppiivs and prescription medicines only as told by [...] and water are not available, use hand can filling and closing machine tender. ? Avoid touching your mouth, face, eyes, [...] Get help (more content not included)... Normal [facility] Follow-Upon 06-04-2023 Follow-Up [id number] Priyanka Hardin 1995 F Date Provider Department Center 06/04/2023 RONNY AZAR MP ORTHO MPORTHO No family history on file Level of Service:79042 MS OFFICE/OUTPATIENT ESTABLISHED MOD MDM 30-39 MIN () Reason for Visit and Comments: Pain [136] Normal [facility] Office Visiton 04-24-2023 Follow-up visit [id number] Priyanka Hardin 1995 F Date Provider Department Center 04/24/2023 RONNY AZAR MP No family history on file Level of Service:06344 MS OFFICE/OUTPATIENT NEW MODERATE MDM 45-59 MINUTES Reason for Visit and Comments: Pain [136] - BWC Injury, meniscus tear injured 09/06/2022 [facility] ST - Assessmentson ST - Assessments [id number] #1.00CD:127 Normal [facility] Coding Summary.on 01-01-2023 Coding Summary. CD:[id number] W w+PGhlYWQ+DA2CDVRsL01 ohZHatV5mP5KIQXoAYgmk XYABRLjGUxDhrhQkLO8rs XNjZXJu IC8+FL8zQEMrConhsVCil 9V4tCI2O11tjt2gVEnecR F5NXOjApCkcnfcf8gkdWu 6IDcuNmluOyBt KSOhuC52EBW5dG84Tq42i QSlcYDve5iktLo2BgWnEJ SqBPN4yAxaHOooz2RnPUC kT71rqQIcf1N0 WZUwsHvbjRGmAxDacJS6m F3qXCmwweqih2kqrimgHw x2qf49dDXxd7V1pJY2K1U rreY2DSWkzFMf XjuvjVWMeG9odkspw9tqx wljIeAgCEEoWYd0LBx7WV EdlLukCbPvEN01YYR6ZMM trqZuC0AfILXr cZaaGnR4u2F6Wm1GS9WYV yjlF0VIWDHBFHmsjVJ+PC 22ra81X3RdHlnaXcn8PIW fHLN9hJM5cS8x RHMlZXosg1M8mEK6D8Bfi xZiko2bh4fzSHDuMLxhE4 8ysRVsk0T5TGMgqGQ8TLI mfYzwZaXssN87 Oyc+JMZtlYfvm3DbSrpsn 5aim7ofaYz0NhqiSAVfln TcaRrbMZO7c7RdQp5tDQZ ujMF6vHD8xZ4h YjEtFlJ2ZJbxG468TfDye OToQtkjQ54dT7NjpVD+PH RnUbs0CCFdtMgsML5rL7F hZGRpbmctbGVm rEqdJX0zBTHecqddMRXvl S1aIKAlV0v1QmThZdW0ES icS3VfOMFkymktCo43bD0 nDnUuEjU0GFbe B2ZmrvT7UEXknSNkVZvxX BO0Y40wl4J7LWMcUQOhUW O8kIP2qL1yyZjrrnlyiQR mdDsgdmVydGlj JRpaOResO969QPJlnBnxQ kNvZGluZyBEYXRlOiAgMD UvMDEvMjAyMzwvdGQ+PHR kGLY7nYlaOJSj uCXkFBvmFa9gqNzxpCdeB A8kHCMdruehASWwkL1aKC HqsERsxVcjCS4tUTHpjky lm268VlHoVMV4 QIJpoWPkG2EdeE1pNpHmR TEeNUSfG8SevGOaCJmkN8 29TGldNhR2KGLslnAxA8H sLWFsaWduOiB0 p6D6Hr8Aq1HbktsnY3Uqn MIaLoSiPoikWEj8T4XkKe wvdHI+CC15NUOqUN10MFx 1OUM4xOxzLMod TWLyG7MxvZ4gLvNpGDLlC GRkOyc+PHRhYmxlIHdpZH RoPScxMDAlJyBzdHlsZT0 tLj8bPOEiEAKy dFcvxLZuQzUac5syMIJzG QfwOD6jyWesV0KvoLE7WS Qki8p9Xf52Q69dL5HuxYG +EWVzgBV4vLO4 zS8nYwBeBwQ7GPtlP647A sGhuKNpWocgv2wie9zkqZ l3BuW6TCFitwLhkLknCQO 1p4NtMa99E57l IHdpZHRoPSIxNSUiIHZhb Pnxef2ypU7bYl1+PGNvbC B7xWU8nG0kFnDlTqT2SSj gP497UcFtoLGx Rbacf4fpn5gdrIg2MvHqL GFwrxLlkJbwSAZ5m5WuTu 15Z3TliBhxi3IqTca8dq8 9oUCpu3U8hBA8 W4SmRUDevlybtHQefYatU O5tDSXppurcQVUliZ5bNU MbZ6h6TiWwKmV3GPgxO6K pegI1ZBNulZZg ETNepUXEyF0jxuzku1nkp ikvYiRlEOVkJOn7ZOn2UA ZrjFunUbYgIQQ9ErH1ORK 0kEMzpS4grEuw halvsO4mCva+BVG5iSKhc MRHUF0eBoekiIM+PHRkIH K8vRvqLBrxXRResD7oCWW aS6v0OhIjSiY6 FUepW8QlajJ9RAIlyXChE PWahNMOeP7ughcym0sugy feCbDcIFHqUXv4QLj5LGY saWduOiBsZWZ0 XbH4AAC1xTTxcY8zuZtfg iyppA7uHfe+QmlydGggRG V2FPb5Z7IsGhs3KURehNd gGS1ztJJaZKom Uw0osJpvzCetJS2vWFPuo qute701GgDhx1qcCEZptI HwHFluYAS8K46ct3M2VWJ hPYPnPGL2vXF5 mG5gbJarqpxmxAZdmLnam kBlkRizBRzqVFegB800AZ VapXvcXcGiQLz9A2VrXzx 8NPCumJzpRD4d kEUuFRwlZw0xlWlrjIebV X0nIYOwetxcn711QmVcx0 jsOOCioOEdHRxaTGN4E46 zg5Q3UNPcVPYm DTY9vFA4fZ2rtBrppbnji GVmdDsgdmVydGljYWwtYW zpM191EEXcbWzvSqKajTh 2U0UyHpu4LOMy cSfdVV5deEUaLAzwTg2bt BjftQpcKN8eMCImrrmco4 65LbPek5dpLEVeqMTrZEk jIXP1S66cf3G1 OKFiLVXhHSE6xQV1gX8zv GlnbjogbGVmdDsgdmVydG ddJUyvACbdB502FMIfkIj nPlBhdGllbnQg UHtmAKk9J2WrExpqpUM+P R02IZUzXC77lNKgbPZqh0 uvvXi3NlLbNQMsUTZ8oVn eMJtno9JaOHUe M90ucLKeu5G0ZRNbgXyvu EPwWdTvjGL5qM3dROepgb zod3mtgpzbSkhqt2iggn1 5nE08I48oXNtb ZHRoPSIzMCUiIHZhbGlnb v2qeV8sJi6+ANHlcRX9wC G7lM9iSZPiExW4VXabU93 9InRvcCIvPjxj w8tzc1zqwNc1SnZ4TAAhi bMluLyaLCG5i7BrWw24T3 9sIHdpZHRoPSIyMCUiIHZ yvLppbn4yjR6z Ii8+EVZvkUX4cPO5tS9oI fRkKiK0TPdiU399OmOhnB XrGdelD25hZ0VzhMG+PHR kZxp7HVHamBjg JE5pcFGtTTwbRb5kWJU7W xYaKzDvMLhbU0WeXMErta leamaymQA8RUYiIXRbcZ5 8Vw2qwNocQGRy vCUZsY3qmqomm6rdushoU bExFAJcMVj8ADt8BULfrQ dfZdTzWJN9KuO4ETE1iJY hlC3rbSfwhhpk pC9cP3IoBLMcmyptEj97p Q2oByXrAiV9JFljKtk+Sk 7TDONmEITPGQBGBSCEQE4 4CD73bGBit8D0 wFG1U2GbGZHgpranlqieg CD4ZMKaXUCskQ43dWIzUQ dzUg9wv1Y4r578ZYQsIKU meS03Jt4dbNqe PORlfVZHfB1rsgpel4gfg rmnFeDjSHSlORw7LAs7FD UmlBsjExPbOLA7QmW7NQH 3gMLldG0enRne bjxnnV1hMnd+MDcvMjcvM Uw0UgkhpMH+ARJlEEC4iK rsVJqeRWFixN5bZROeN1d 6IcAwQcP0LDlc B4XfFHLqvbftDh47aZ0aE nQmCaV5SLkzD8RkbrN6ME NwsAIlDXlnYMT5M44vp1J 9LCFmMJTfXZF7 xWF0zE4dtRmjkillxHBgy DsgdmVydGljYWwtYWxpZ2 66GJOspRaoKrN6WDokKHR lKT37JJ30gBFg z0Z5eAN3J3HjRTFsuvuqi nzraNN9LLVlJSBwqL11pF UoSDkbFq6pp2L2h878YXF gWHFlzK58Ra6r sGylCKAzoLNScA3jjizln 2ayltegIaBwZBAcFAa8IJ e4OXDijWhiVyIbOIJ3QrY 7WVD3dHXzwH9x lHberofziS0gYqj+RmVtY LfgJW68KD60rKYnl5F9bA T8N0OgRGTnwxasstankUK 9NCGyNIBnzU49 jWJnZFndCb6ih3P1m202H KAdTGTkhZ20Kt2jnXugEK SyaMZNmZ3wbpgdw5kujcn gIzAwMDAwMDt0 WOz9PDSpxNhnWtYxQDH6G aK3PXV1rQEptL6tbBnvcj egtM2hTaz+UmVjdXJyaW5 jTF93NU56V3Xo PjwvdGFibGU+PHRhYmxlI HdpZHRoPScxMDAlJyBzdH vtLU3bPn4sEKHrNXOmsVh vmPRiGbQjn0pp ATUiXRizNE9heImeW1Pgy VQ3FGMch3d4Nk08O00uG8 JvdXA+ICNqmVL2rVD4uD1 oEuDjZdK7PMbf C492ByZmbWToTkrgd2ccg 3jtgGx7BsOmLPWrjiJppW cqBON1r9EvAx71H89tWWo pZHRoPSIyMCUi OOFecEvfdq5wbH5tZv1+P WLhyIP0zHF1qQ9uYpSgRx X9OSoxQ493JiXprZXjIet wT81hU3DmwLM+ OSScEty7WEBprDwkGE3sj SIgEVawMq9eAWK8NoGkRq VsAEyhA1IqTRUjzhlkvyn vsLI3JXOsUNGd aH00Tx1obXjhQz5gRFHjX WC6JOHppQReN0OqvB3wEk CfCNVwBVRoS7OxeMUtCXy fL553KDrbRmV9 VAExhoYzX2SlICEtkYjgB eY2r2G0Ru1GdMityDGySA 1uEeElNGj1Z1LfOfu6TQJ okJcxXA5hlVGx QVnuVc8otJtclKjqXL0gV QKuohjoc977EcUkn8kzUW YblJSuFYpuJQV5I03ti1L 1LZIzAREbHJJ3 oWK1cC4jrKrfopmddIGxg DsgdmVydGljYWwtYWxpZ2 62JOFtkXabVtMPQwb3T9K dHxa3IOZqwFtq LW2xiFScBQxdOo6anVivu VrlSO4cBFZaoednl878Qq Usr0ayVSHcoNCuMNpzDIA 0J14zu6G9MBIs VPToBOQ7jJF9qV0okAsip jogbGVmdDsgdmVydGljYW laPGcrW450RCGfaPqrRm4 UIod8F6BzQhe2 JCCptChtXY5kwETtUFxbJ k1jjYrqgSmwJY1jUEZoaj voa748GpMgm9cxAKNjoVM gNMxmAUN5D20n b3I7TWJjAMPwUZY6bLM4m J0qgTsnsgkroCCvwGhnos LrvRvnAJayGPylY608CFP vcDsnPlBheWVy OjwvdGQ+XC29ex23E3ChW bpzEmn0TSQySYK3nQJ7wT 0qXUKtXMlwf0T8iHE1W0B khyZmqx3gn0wl YXBzZTog (more content not included)... Normal [facility] Consent for Treatmenton 12-03 Consent for Treatment [id number]#1 .00CD:127 Normal [facility] ST - Orderson 12-22-2022 ST - Orders [id number]# 1.00CD:127 Normal [facility] ST - Otheron 12-22-2022 ST - Other [id number]# 1.00CD:127 Normal [facility] Family Medicine Office/Clini c Noteon 12-09-2022 Family [...] day(s), # 14 tab(s), Refills(s) 0, Pharmacy: [facility] 1985, 160, cm, 12/09/22 13:50:00 [...] virus vacci (more content not included)... Normal [facility] Comment on above: Result Comment: [...] home: Medicines ? Take, use, or apply ygvk-cdg-larhung and prescription medicines only as told by [...] and water are not available, use hand can filling and closing machine tender. ? Do not smoke. Avoid being around [...] or swell (more content not included)... Normal [facility] Provider Letteron 12-09-2022 Provider Letter December 09, 2022 PRIYANKA HARDIN [address] [place] [address] PRIYANKA HARDIN 1995 To Whom It May Concern, Please excuse above patient from work. Date of Illness:12-09-2022 May Return to Work On:next scheduled work day Restrictions: _ Comments: _ Sincerely, [facility] [address] [place] [address], [place] [address] [facility] Family Medicine Office/Clini c Noteon 12-04-2022 Family [...] Acute pharyngitis, unspecified) Ordered: Rapid Strep POC 66391 Follow-up With When Contact Information [place] [address] [place] [address]- Additional Instructions: Patient Education Antibiotic Resistance Upper [...] o (more content not included)... Normal [facility] Comment on above: Result Comment: Elec tronically [...] Before and after (more content not included)... [facility] Patient Letter FTon 2022 Patient Letter [facility] December 04, 2022 PRIYANKA HARDIN [address] [place] [id number] Please excuse PRIYANKA HARDIN from work . Date and/or Time of Absence: From: 12/04/22 To: 12/05/22 Restrictions: None Comments: Please excuse due to an acute illness. Provider Signature: Sunshine Mejias APRN, LAW FIRM RECEPTIONIST-C Nurse Practitioner [address] [place] [address] [place] [address] [facility] CNOVon 11-13-2022 [facility] Office Visit (LOORRM ) PRIYANKA HARDIN ([id number]) 1995 F Date Time Provider Department 11/13/22 9:30 AM AUDREY MORGAN During your visit today, we recorded the following information about you: Weight Height 59 kg 1.6 m Allergies As of Date: 11/13/2022 (Not on File) Date Reviewed: 11/13/2022 Reviewed by: Monie Salmon MA - Fully Assessed Reason for Visit: New [[id number]] Primary Visit Diagnosis:Acute pain of left knee [M25.562] Other Visit Diagnosis:Internal derangement of left knee [M23.92] Problem List As Of Date: 11/13/2022 (None) Encounter Status:Closed by AUDREY MORGAN II on 11/14/22 Normal [facility] XR KNEE 4V AP/PA BOTH+LAT/ME R LTon [...] dislocation. No joint effusion. IMPRESSION: Normal radiographs. Flash Developer: [facility] Transcribe Date/Time: Nov 13 2022 9:55A Dictated by : EBENEZER HORAN MD This examination was interpreted and the report reviewed and electronically signed by: OPAL WARE MD on Nov 13 2022 9:51PM EST [id number] Normal [facility] MRI KNEE LT WO CONon 023 MRI [...] by: RONNY NARANJO Date: 2022-10-11 19:17 Normal [facility] ED Noteon 07-12-2022 ED Note [id number]# 1.00CD:127 Normal [facility] Comment on above: Other Comment: WRONG FOLDER Outside Recordson 07-12-2022 Outside Records [id number]# 1.00CD:127 Normal [facility] Coding Summary.on 07-03-2022 Coding Summary. CD:[id number] G h0bWw+PGhlYWQ+FP5HXFS wK01pqLZweN1GJ1dQIF7J ALSKNPNSVH6UBC3juTF4Y HdrC4ZehbXq PncrrNQsGM37UHx1JSO5s MbnQFefxD4yfJFlD5a2Wp KhWD39eV06FJukYNWySmM 3LjZpbjsgbWFy A4upUnGlvAOcLyt+PHRhY mxlIHdpZHRoPScxMDAlJy NpfYpeJB1lYk8eOHFzUAJ vbGxhcHNlOiBj b0dhKHMyHNvuHO5riYsbK 5JclEF2JRJcc3l1Bd36cS I+PJZkYZF2bRlgURngg38 8GcIan6mrNHL9 xHFjHSjtEAR9Q70im9Q0W MZiUTSoLJI5lWE4xR1kaY gypwgcM8MpzWHdYvZ7OIJ 7xCKmpH7wnBpc zqkqmP5fSud+W70VJG2WJ VGQOI4NSbf2F8HfDkgicO I+IM66FFQoPL40aVKztVA sn7xvxJa4XbKp QRDxPAW7gEwxNRquv3HdU QRbG94vtMZjk6H4AEEvcZ auxUOgFnWxrKH7hP2cGSm drhgnb4cfndiz Cfhkp2qxek68pK95S44xR JjuGYKlPPM9LKXoLELzaG bjnu9gzW4fEm8+MXkwn2u bn0scgBu3PvMs SFDdchLixWosIWC3o0EcM i86P4SisAwnu0HeFbl8tr 27cYWzl4Q7gMO3DUzrJKG vkP6tGRtoOtS9 LFGuAcUoyS41wWSrLIldA l6qrFiueBcnOR6vNBIifd zwVMAguV2qVMWgeETteXa tOF2yUJNkohxw u651GuPkZTC5YBZmuEKgS 4CybR2rCnCvTPDjTNBrU8 LzgPUbBCpvZ735UUqnXrS 8FLZbcrFmO6Bw NEFehDgdHaC8j1C7Xr7Cy 5FrghexJGZ0JPxrYKNlQf DfJhUqBaS8X6TwOik8MZO utVouBR3oW1Ii DTVaoivypbfgwHA3TMFhK NCtdO01zUWzAWqnDj0fb9 D0p377ERAgFPCbjZ15Mf4 udDogMTBwdCBU gT9ixlcgs6auyucpTmNqF YLhEOi1ZBk9PIKnfArqGz GwAXS2DfT9CYR0aPWrzQ5 vnTenafdzvQ2q Oyc+H13liC1wWZR9BNX1y zaxGDPqkvUzVI21NI20R8 RyPjwvdGFibGU+PGRpdiB tfTdhPB1qAhNd o6dxj3LqPCznU5KhKBBsG EkyYow8GVJiRRI4dWQ9nP 7qXNWuNQkzt6Y6yRS0Z3T fqaLbdr0zy9lz VFXeVPdlR36dkZNzu7H9E XDkiLZ8VPFcyAotUlWztW 93Oyc+NNFueOvtd5WrWeu jq9qnk8npsYb7 FtZzNGWtddSdiToyNGE1h 3AjAf21E51tXXeuGVIdEA ZsRMKpLISfzIelta9mqC4 wIi8+PGNvbCB3 yNT8aP7yUFTiDtX3NGusX 398QsEmmKLtWogrx0kde3 ihrMf0QbEuWVEwcaRdxEf mTMI9e6UwUc03 O96xUBbaFDMoHJHeEUFwU AJozLjrks9yjA0lJy6+PC 0rs4cild92kD92lLQ+PHR aPRU2qLvvMBbw RFMjeP3bJWjwYgT9BFTpF lGpmK31qNMyOGhjTl3iuY pazLkeJQ6kFAUppgpdk02 4JkWgv4usKIYk uGKbCPwcIXE0G94wz8Y2X NIjCMNrDFA1xJY3lU1xoC lnbjogbGVmdDsgdmVydGl qCFxzJAswH191 IHRvcDsnPlBhdGllbnQgT rKkAXf7O4HjUhh8YMMoyD siDI1cwLBtHTsdGk2zqSe uoZvxIG8bKUNn mfmnk649JtPfq1rkAMExo EDnTUluCSS7A64dd5V6RE BdDHHbQMT0gCD9fE4smWq nbjogbGVmdDsg fbNtvEitOIxoIYkrF765R HRvcDsnPkJpcnRoIERhdG Y5ZG86UM98cZLvx4D8eXF 6C0SfEWGlmliu fnnucHH9MZRxAJHdgX30M n2prSqvEk7tKRWiEYX2VK SzdZJtX1NoeE0nBmFgVWT kULAbD4JkmMOy YFggM115SVlxKoW5KUIxh aSqL6DwCJQnpQovIyR7k1 K9Jl2ZA6L7TK53GG69bZA zd0G4jAA7Q3Ly VGYqafdehzqgiRF3VDRgZ FVqyF64Lc9rgGdgCv4tHB UfRHB2XJAotEWwV3RgfS5 yOiAjMDAwMDAw X9EwaMJzXZifK029KYdnH wL2FSImktHgS3FyBLDtsF oqXqW9i4D4Eu0IKSy4CJ3 2BH95gYWit8T7 vZE5U5PvTHFvbnexmxevt AF9IIArFFFraH02Ik9szJ knEq3vDAXhECA8ESUtlEK fT6BeoS3aTcPo FXKfPQTrS7DvpKGmVCbxS 412AIdpXaC7WHXtawUkG9 TcCUQfiHfiQkE8x7J0Bb9 LTAKiMV89LQT6 vHL3HC17ZP24Z9WvUgusj GFibGU+PHRhYmxlIHdpZH RoPScxMDAlJyBzdHlsZT0 jFk4kUJKpWMBq pHtotXBtToToa6wdBOTeF UfvWO3fkZfzB7MomVH7XP Yut0e7Si06Q61wA1YkmPI +WGBzcQL5tAZ9 aE3bKcLbSxM9UYebA848C kOvcBDhVirnx2jbp7rivZ n7OqB1EFXqqzRelTxtVAL 9j1NuRm01O85o IHdpZHRoPSIxNSUiIHZhb Yqhuh3ocM9yTx5+PGNvbC K9eAR7wE1wZvDmLsY7YTw wL051RuLjvSMk Dkgdj4wde2oaxJw5MzUjV EOboxXxrHrhXFJ3w3CrNd 24M6YaqNryy2XeDnv2el8 1oBVja6H7iBG8 T3KxCQXnitsekMTblToqC Z3rBJWvwsqfAEQubV9gHH CaM2w4NnXrWqX9IPhtU7W hdzJ8GNQfdUEp ZHxmSTH1X53xt2G9BVZhS RXpARA7hEU3lH7leVlydj ogbGVmdDsgdmVydGljYWw mXDfvM543EPWu bUrrNQTjuI1jIXRiqRNdz VglWZ8tCYTvmakiByjMMc BSEPEAIIsCA6FnCInpcGO +RAMvZKL3bEqg KNfcVMBucH6oPWQqA3r9Y kLrArV1PDhrL4TjAHFmaq gyAl65vM5oWjHbToX5BYw gM6DqmbR4RPFu yPKbLXacUZU9L15pv4A6R ETgJROoXJO8oVK9vR0cbS lnbjogbGVmdDsgdmVydGl vWFygYHgkL133 YEYmyTwfHeJ9YxD4KkA3Q Rc5P3AbXnl7BIDvgRppTQ 7atOXeNGisNo1ayIphvNm pYD2fUCLehnwm VQPwhB0gISYsiXHauSxsM X1uCKNjyyzyl691AyElBA F1EUYglBJjF0BysL3rLhE fIVWbBBMzO3Iq uNZvYZyxS124GBccDvZ5A NRcfjQoS5ViZLHamCwlWg O1h9C1Wk2rVQGFCNXzkfk vdGQ+PHRkIHN0 gGlqOJhiVLPvlW7oRDDpN 5u4RjFoEmB4XEqnS9LtLW YsiwzhMs51cG6sEzUcTnZ 4KAsvW2DejcK6 QEEhcWFuZTetTWE4A37ih 9K3RHZoPUGbZRU0oWH7dT 1hbGlnbjogbGVmdDsgdmV ydGljYWwtYWxp S223MLWjdJfoTmGogVHaC TwvdGQ+DOXxJRE8dGzjUI hoVDZodH5vHQWbY7z2JzO kWzJ5NNzuY0Fv RLTsowayOk27qX0wVvLgH yK6CGpxX5YhpgP7ZFSijU KyYNnqMAL4Z12fv9W5QWQ pYXZmCCZ3gFY4 gU4drEfqbtkgmYHthAxws bMarHdmANscPNxoY863TX YuxVwsAiAjHUHpWB2jcVf vdGQ+DM62dx24 G2ZrApgpSuz5BAVcERS8x BQ2zL6jEXPgXRmqj0G2cM W1G5SniaVrud4et4yxYCU uXZlfI12xpFQm f7J5TJYueCJ3MCSqkPveO hJzdJ15Rfz+PGNvbGdyb3 YuRqodp8nry6xcwLk9PgO wJSIgdmFsaWdu ZGS5d3RwZr33E60lZSteK HRoPSIzMCUiIHZhbGlnbj 1pyA1uCp7+ZZMbdVC4zBI 2gN5mIjDuPvG4 BWrnT408HpYpsSGzVfhzs 2ula6eobEo8NpBoKZTjqz XbnZkgFEB7y1SlRx90Z9N ieHzed8UtSaf4 id99nZMrs5B8sHT0Z6PzI GAqnprxkYWhjFefJZ5nLD NvdxzwTCHldL1lZWShY6p 2SbShBiT6FVnt E1UbhyF8UISnpNJrPKKse VUVyS2anafcj1batglcIl NsIPPeFCe0KCh7OOPnsSa uUeMtPLS4SfJ3 LVO4nQSqzN5duQgorsfex G9wOyc+MIz5f0lzwYHjGS 1vqNL8VC76WV79iLQiu6U 5oUX8D2EiHKLd mrhzpspmqRG5LYZdRDOhh Z26Tu7slXshTs4yADHnES H3OOKntOJaC6NhuZ5cLqF lKBSiTQQxQ4Mj xFPzJHksC911BKzgCtK5H MPyqsKaK1JbUZTybVknKd E4m6N3De6UQF60TW22GH1 2dIKxo0S2uGO1 Q7VaZEGvwlvngtkmhHQ4R LFfGKSkwC17Ri1ktZynFy 5nQMVzMPE7XKAjjFElN2B yvL8gPaOmTKMv VVXlH0RrdYJdNCnbH380W DnaQcA1MRGgmhMsQ4VtDM XfcIcpUiN5l1O0Kf2PHa1 3SW05FT17eFJt j7O5sCW5J4KlADXkldxag jwmsIF8TBFpYRQztL58Kj 9xnIzbBn2qNHImDLU4RBD ryFJoI3XheA3m CrGbXQNlIJUyF3NdyZAyI LeaC333WMglIfZ4TXIvez OaN3YcXQXeiMcnCgE2l8Y 7Eg5FMFatkaw1 T7YzIxjwhOZ+JR61CICrP Z14eSWqyXDas1twrJp3Td CwVABuTWF0bYxoJQquu8H jWZVaW17czWZy c2U6 (more content not included)... Normal [facility] Cholesterol [Mass/volume] in Serum or PlasmaOrdered By: Kyle Pepe on 06-30-2022 Cholesterol [Mass/Vol] 135 mg/dL 140-200 [facility] Comment on above: Chol less than 200 m g/dl low riskChol 201-239 mg/dl borderline riskChol 240 mg/dl and greater high risk Cholesterol in LDL Calc [Mas s/Vol]Ordered By: Kyle Pepe on 06-30-2022 Cholesterol in LDL [Mass/Vol] 66 mg/dL 0-100 [facility] Comment on above: LDL ATP III CLASSIFI CATIONLDL less than 100 mg/dL OptimalLDL 100-129 mg/dL Near or above optimalLDL 130-159 mg/dL Borderline highLDL 160-189 mg/dL HighLDL greater than 189 mg/dL Very high Cholesterol in VLDL Calc [Ma ss/Vol]Ordered By: Kyle Pepe on 06-30-2022 Cholesterol in VLDL [Mass/Vol] 4 mg/dL [facility] ED Clinical Summaryon 2021 ED Clinical Summary [place] [id number] ED Clinical Summary Person Information Name: PRIYANKA HARDIN Amber/[facility] Age: 27 Years : 1995 Sex: Female Language: [place] Zealander PCP: Shannon Glez MD Marital Status: Single [...] 06/29/2022 23:43:15 06/29/2022 23:43:15 ADDRESS: [place] [facility] [id number] PHYS DOC NOTES: MEDICAL INFORMATION: Prescriptions Given: Medications to Continue with No Changes Other Medications diphenhydrAMINE (Benadryl 25 mg Cap) 1-2 cap(s) By Mouth 3 times a day as needed as needed for itching. Refills: 0. famotidine (Pepcid 20 mg Tab) 1 Tablets By Mouth 2 times a day. Refills: 0. PATIENT EDUCATION INFORMATION: Instructions: Follow up: DIAGNOSIS: 1:Suicidal ideation Normal [facility] ED Patient Education Noteon 06-30-2022 ED Patient Education Note Normal [facility] ED Patient Summaryon 022 ED Patient Summary [address] [address] Patient Discharge Instructions Person Information Name: PRIYANKA HARDIN Age: 27 Years Arrival Date: 06/29/2022 17:33:15 Discharge Diagnosis: 1:Suicidal ideation Primary Care Physician: Shannon Glez MD Provider Information Primary Provider: Sai Vasquez DO [employer]:Arnoldo Wellington PA-C The exam and treatment you received in the Emergency Department were for an urgent problem and are not intended as complete care. It is important that you follow up with a doctor, nurse practitioner, or physician?s hospital aides and assistants teacher for ongoing care. If your symptoms become [...] opioids can be used to help relieve tpcavmwe-em-cortgy pain and are often prescribed following a [...] be struggling with addiction, tell your health care companion and ask for guidance or call [facility]?S [employer] Helpline at [phone]. l Source: [place] Department of Health and Human Services/Center for Disease Control & Prevention [facility] Medications Given: Medication Dose Rou (more content not included)... Normal [facility] EMS Documentationon 06-30-20 EMS Documentation [id number]#1 .00CD:127 Normal [facility] Lipid Panelon 06-30-2022 Cholesterol [Mass/Vol] 135 mg/dL Low 140-200 [facility] Comment on above: Result Comment: Chol less than 200 mg/dl low risk Chol 201-239 mg/dl borderline risk Chol 240 mg/dl and greater high risk Performed By: #### T SH3 wRFLX, [id number], LIPID #### [facility] [address] [place] [id number] [place] Cholesterol in HDL [Mass/Vol] 65 mg/dL Normal 35-85 [facility] Comment on above: Result Comment: HDL CHOL ATP-III CLASSIFICATION Cardiovascular Risk HDL > or equal to 60 mg/dL LOW HDL < 40 mg/dL HIGH Performed By: #### T SH3 wRFLX, [id number], LIPID #### [facility] [address] [place] [id number] [facility] Cholesterol.total/Choles terol in HDL [Mass ratio] 2.1 {ratio} Normal <5.0 [facility] Comment on above: Performed By: #### T SH3 wRFLX, [id number], LIPID #### [facility] [address] LDL Cholesterol,Calculated 66 mg/dL Normal 0-100 [facility] Comment on above: Result Comment: LDL ATP III CLASSIFICATION LDL less than 100 mg/dL Optimal LDL 100-129 mg/dL Near or above optimal LDL 130-159 mg/dL Borderline high LDL 160-189 mg/dL High LDL greater than 189 mg/dL Very high Performed By: #### T SH3 wRFLX, [id number], LIPID #### [facility] [address] Triglyceride w/Reflex 20 mg/dL Low 35-149 [facility] Comment on above: Result Comment: TRIG ATP III CLASSIFICATION TRIG less than 150 mg/dL Normal TRIG 150-199 mg/dL Borderline high TRIG 200-500 mg/dL High TRIG greater than 500 mg/dL Very high Standard traceable to the Center for Disease Conrtrol and Prevention (CDC) test method. Performed By: #### T SH3 wRFLX, [id number], LIPID #### [facility] [address] VLDL CHOLESTEROL 4 mg/dL Normal [facility] Comment on above: Performed By: #### T SH3 wRFLX, [id number], LIPID #### [facility] [address] No Panel InformationOrdered By: Kyle Pepe on 06-30-2022 25-Hydroxy Vitamin D Total 22.3 ng/mL 30-100 [facility] Comment on above: VITAMIN D STATUS [...] Cholesterol in HDL [Mass/Vol] 65 mg/dL 35-85 [facility] Comment on above: HDL CHOL ATP-III CLA SSIFICATION Cardiovascular RiskHDL > or equal to 60 mg/dL LOWHDL < 40 mg/dL HIGH Serum or plasma total choles terol/high density lipoprotein (HDL) cholesterol mass ratOrdered By: Kyle Pepe on 06-30-2022 Cholesterol.total/Choles terol in HDL [Mass ratio] 2.1 {ratio} <5.0 [facility] TSH DL <= 0.005 mIU/L QnOrde red By: Kyle Pepe on 06-30-2022 TSH Qn 1.66 m[IU]/L 0.45-5.33 [facility] Thyroid Stim Hormone w/Rflxo n 06-30-2022 Thyroid Stim Hormone w/Rflx 1.66 u[iU]/mL Normal 0.45-5.33 [facility] Comment on above: Performed By: #### T SH3 wRFLX, [id number], LIPID #### [address] Transfer Documentson 022 Transfer Documents [id number]# 1.00CD:127 Normal [facility] Triglyceride [Mass/volume] i n Serum or PlasmaOrdered By: Kyle Pepe on 06-30-2022 Triglyceride [Mass/Vol] 20 mg/dL 35-149 [facility] Comment on above: TRIG ATP III CLASSIF ICATIONTRIG less than 150 mg/dL NormalTRIG 150-199 mg/dL Borderline highTRIG 200-500 mg/dL High TRIG greater than 500 mg/dL Very highStandard traceable to the Center for Disease Conrtrol and Prevention (CDC) test method. Valuables Checkliston 2021 Valuables Checklist [id number]# 1.00CD:127 Normal [facility] Vitamin D 25 Hydroxy Totalon 06-30-2022 Vitamin D 25 Hydroxy Total 22.3 ng/mL Low 30-100 [facility] Comment on above: Result Comment: NOEMÍ MIN D STATUS 25(OH)VITAMIN D RANGE (ng/mL) Deficient <20 Insufficient 20 to <30 Sufficient 30 to 100 Reference: Constantino MF,Claudio NC, Martin IBRAHIM, et al. Evaluation,treatment, and prevention of vitamin D deficiency; an Endocrine Society clinical practice guideline. JCEM. 2010; 96(7):1911-30. PERFORMED BY: [facility] [address] [id number] PATHOLOGIST ASSISTANT CORPORATE SECRETARY JUNIE ARMENDARIZ M.D. Performed By: #### T SH3 wRFLX, TBSD91DY, LIPID #### [facility] [address] [place] [address] [facility] Acetamnphn Lvlon 06-29-2022 Acetaminophen [Mass/Vol] ug/mL Low 15-30 [facility] Comment on above: Performed By: #### 2 239287, 2095579, 5987981, 12418276, 0762286, 8113156 ####[facility] [address] [place] [address] Auto Diffon 06-29-2022 Basophils/100 WBC (Bld) 0.6 % Normal 0.0-2.0 [facility] Comment on above: Order Comment: Order Added by Discern Expert. Performed By: #### 2 844510, 2755791, 6542696, 67427087, 1188845, 3218689 ####[facility] [address] [place] [address] Basophils/Leukocytes Auto (Bld) [Pure # fraction] 0.1 E9/L Normal 0.0-0.2 [facility] Comment on above: Order Comment: Order Added by Discern Expert. Performed By: #### 2 932577, 9555505, 3567810, 07153727, 7695443, 5183316 ####[facility] [address] [place] [address] Eosinophils/100 WBC (Bld) 2.9 % Normal 0.0-8.0 [facility] Comment on above: Order Comment: Order Added by Discern Expert. Performed By: #### 2 648485, 7017202, 8776207, 60324280, 4942850, 2963996 ####[facility] [address] [place] [address] Eosinophils/Leukocytes Auto (Bld) [Pure # fraction] 0.3 E9/L Normal 0.0-0.5 [facility] Comment on above: Order Comment: Order Added by Discern Expert. Performed By: #### 2 309737, 3404541, 2954596, 32114072, 0814529, 4293879 ####[address] [place] [address] Lymphocytes/100 WBC (Bld) 24.2 % Normal 14.0-50.0 [facility] Comment on above: Order Comment: Order Added by Discern Expert. Performed By: #### 2 704312, 2788576, 6347949, 95079660, 6259374, 4844735 ####[address] [address] Lymphocytes/Leukocytes Auto (Bld) [Pure # fraction] 2.3 E9/L Normal 1.0-4.0 [facility] Comment on above: Order Comment: Order Added by Discern Expert. Performed By: #### 2 957550, 8784376, 1174214, 97868847, 0021218, 4558632 ####[address] [place] [address] Monocytes/100 WBC (Bld) 6.5 % Normal 4.0-14.0 [facility] Comment on above: Order Comment: Order Added by Discern Expert. Performed By: #### 2 645008, 8278197, 4829963, 55275611, 1805801, 4699964 ####[address] [place] [address] Monocytes/Leukocytes Auto (Bld) [Pure # fraction] 0.6 E9/L Normal 0.2-1.0 [facility] Comment on above: Order Comment: Order Added by Discern Expert. Performed By: #### 2 891616, 2620746, 7041756, 82078176, 4799262, 4339841 ####[address] [place] [address] Neutrophils/100 WBC (Bld) 65.8 % Normal 36.0-75.0 [facility] Comment on above: Order Comment: Order Added by Discern Expert. Performed By: #### 2 879603, 4874393, 2497762, 38357563, 9775506, 0625067 ####[address] [place] [address] Neutrophils/Leukocytes Auto (Bld) [Pure # fraction] 6.4 E9/L Normal 2.0-7.5 [facility] Comment on above: Order Comment: Order Added by Discern Expert. Performed By: #### 2 448719, 4432998, 0311450, 34737043, 1175347, 0112131 ####[address] [address] CBC w/ Auto Diffon Erythrocyte distribution width (RBC) [Ratio] 11.9 % Normal 10.9-14.2 [facility] Comment on above: Performed By: #### 2 249489, 2608311, 0208373, 48755606, 2273781, 0333744 ####[address] [address] Hematocrit (Bld) [Volume fraction] 37.9 % Normal 34.0-46.0 [facility] Comment on above: Performed By: #### 2 763871, 0796623, 7339865, 29103632, 4107352, 9804289 ####[address] [place] [address] Hemoglobin (Bld) [Mass/Vol] 13.2 g/dL Normal 12.0-16.0 [facility] Comment on above: Performed By: #### 2 368933, 0312778, 6998803, 12881443, 6604262, 7362867 ####[address] [place] [address] MCH (RBC) [Entitic mass] 30.8 pg Normal 27.0-34.0 [facility] Comment on above: Performed By: #### 2 669409, 8736279, 2190683, 75674972, 2635502, 6611896 ####[address] [place] [address]457 MCHC (RBC) [Mass/Vol] 34.8 g/dL Normal 31.4-36.0 [facility] Comment on above: Performed By: #### 2 054604, 5282049, 6260770, 78269357, 9047983, 5364580 ####[address] [place] 9[address]457 MCV (RBC) [Entitic vol] 88.4 fL Normal 80.0-100.0 [facility] Comment on above: Performed By: #### 2 346994, 4577224, 2419393, 13377603, 1488215, 1542909 ####[place] [address] Platelet mean volume (Bld) [Entitic vol] 8.7 fL Normal 6.4-10.8 [facility] Comment on above: Performed By: #### 2 666392, 3168928, 8728735, 99108364, 9219755, 0126252 ####[place] [address] Platelets (Bld) [#/Vol] 256.0 E9/L Normal 150.0-500.0 [facility] Comment on above: Performed By: #### 2 457304, 4280023, 7147350, 24774177, 9334325, 8680594 ####[place] [address] RBC (Bld) [#/Vol] 4.3 E12/L Normal 4.3-5.9 [facility] Comment on above: Performed By: #### 2 934096, 7715036, 7434232, 91952466, 7265118, 8257732 ####[place] [address] WBC corrected for nucl RBC Auto (Bld) [#/Vol] 9.7 E9/L Normal 4.0-11.0 [facility] Comment on above: Performed By: #### 2 556547, 1427993, 1519465, 14329768, 3202512, 1808909 ####[facility] [address] [place] [address] CMPon 06-29-2022 Albumin [Mass/Vol] 4.7 g/dL Normal 3.3-5.0 [facility] Comment on above: Performed By: #### 2 526993, 8222697, 0365629, 11192874, 3114476, 0365340 ####[facility] [address] [place] [address] Albumin/Globulin (S) [Mass conc ratio] 1.3 Normal 1.1-2.2 [facility] Comment on above: Performed By: #### 2 469284, 7296508, 8957665, 45306481, 3609445, 5229486 ####[facility] [address] [place] [address] ALP [Catalytic activity/Vol] 59 Int._Unit/L Normal 21-98 [facility] Comment on above: Performed By: #### 2 527717, 4238026, 9997210, 38202378, 7227293, 4802473 ####[facility] [address] [place] [address] ALT No additional P-5'-P [Catalytic activity/Vol] 17 Int._Unit/L Normal 6-46 [facility] Comment on above: Performed By: #### 2 099649, 6604562, 9810370, 21243133, 1339208, 3269924 ####[facility] [address] [place] [address] AST [Catalytic activity/Vol] 20 Int._Unit/L Normal 5-43 [facility] Comment on above: Performed By: #### 2 866995, 2988485, 0991140, 06650486, 5161273, 1380842 ####[facility] [address] [place] [address] Bilirubin [Mass/Vol] 1.1 mg/dL Normal 0.0-1.1 [facility] Comment on above: Performed By: #### 2 067980, 3777776, 5177894, 66884189, 0147310, 4017544 ####[facility] [address] [place] [address] Creatinine [Mass/Vol] 0.7 mg/dL Normal 0.5-1.3 [facility] Comment on above: Performed By: #### 2 502774, 7033080, 3008263, 98222139, 5820900, 2327515 ####[facility] [address] [place] [address] Globulin (S) [Mass/Vol] 3.6 g/dL Normal 1.4-4.0 [facility] Comment on above: Performed By: #### 2 482006, 5568968, 4202340, 53388377, 7857817, 9186701 ####[facility] [address] [place] [address] Protein [Mass/Vol] 8.3 g/dL High 6.0-7.8 [facility] Comment on above: Performed By: #### 2 399251, 6122023, 0719540, 27226581, 2787645, 1351305 ####[facility] [address] [place] [address] Urea nitrogen [Mass/Vol] 9 mg/dL Normal 5-21 [facility] Comment on above: Performed By: #### 2 114028, 8744144, 3574317, 24448180, 2435503, 3235363 ####[facility] [address] [place] [address] Urea nitrogen/Creatinine [Mass ratio] 13 No Units Normal 10-20 [facility] Comment on above: Performed By: #### 2 674600, 6744346, 2164125, 43630853, 6641445, 5359714 ####[facility] [address] [place] [address] Anion gap [Moles/Vol] 14 mmol/L Normal 6-16 [facility] Comment on above: Performed By: #### 2 654414, 8772858, 7052911, 42446713, 7046779, 5941461 ####[facility] [address] [place] [address] Calcium [Mass/Vol] 9.9 mg/dL Normal 8.9-11.1 [facility] Comment on above: Performed By: #### 2 590221, 4614254, 6900023, 98019256, 7981738, 4846095 ####[facility] [address] [place] [address] Chloride [Moles/Vol] 102 mmol/L Normal 101-111 [facility] Comment on above: Performed By: #### 2 881885, 3008879, 3116208, 08405120, 3962224, 7984487 ####[facility] [address] [place] [address] CO2 [Moles/Vol] 24 mmol/L Normal 21-31 [facility] Comment on above: Performed By: #### 2 644857, 5561003, 8432490, 51680429, 6653345, 1346992 ####[facility] [address] [place] [address] Glucose [Mass/Vol] 103 mg/dL Normal 55-199 [facility] Comment on above: Result Comment: If t his glucose result represents a fasting glucose, interpretation should refer to the following reference range: 55-99 mg/dL Performed By: #### 2 966353, 6279424, 6405317, 84676325, 8311673, 7899225 ####[facility] [address] [place] [address] Potassium [Moles/Vol] 4.1 mmol/L Normal 3.5-5.3 [facility] Comment on above: Performed By: #### 2 187921, 7545211, 8774025, 82473256, 1866899, 3630928 ####[facility] [address] [place] [address] Sodium [Moles/Vol] 136 mmol/L Normal 135-145 [facility] Comment on above: Performed By: #### 2 041586, 5941086, 5071819, 75145387, 7440737, 9779843 ####[facility] [address] [place] [address] Consent for Treatmenton 06-04 Consent for Treatment [id number]#1 .00CD:127 Normal [facility] ED Note-Physicianon 06-29-20 ED Note-Physician Basic Information Time Seen: Arnoldo Wellington PA-C 06/29/2022 17:39 Chief Complaint pt arrives via [facility] for suicidal ideations. pt states she took [...] follow-up and disposition. Patient was evaluated by [facility]. She was accepted for placement at [facility] by Dr. Pepe. Assessment/Plan 1. Suicidal [...] % (06/29/22::) Lymph Auto: 24.2 % (06/29/22::00) Dickey Auto: 6.5 % (06/29/22::) Eos Auto: 2.9 % (06/29/22::) Basophil Auto: 0.6 % (06/29/22:) Neutro Absolute: 6.4 E9/L (06/29/22::) Lymph Absolute: 2.3 E9/L (06/29/22::) Dickey Absolute: 0.6 E9/L (06/29/22::00) Eos Absolute: 0.3 [...] Low (10 (more content not included)... Normal [facility] Comment on above: Result Comment: Elec tronically Signed By: Arnoldo Wellington PA-C\.br\Date and Time Signed: 06/29/22 18:19 EDT\.br\Electronically Co-Signed By: Lili Hollis DO\.br\Date and Time Co-Signed: 06/29/22 20:35 EDT\.br\Electronically Co-Signed By: Sai Vasquez DO\.br\Date and Time Co-Signed: 06/30/22 19:05 EDT Ethanolon 06-29-2022 Ethanol [Mass/Vol] mg/dL Normal <=7 [facility] Comment on above: Performed By: #### 2 146912 ####[facility] [address] [place] [address] Rapid COVID Antigen ([facility])on 06-29-2022 Rapid COV Int NEG Ctl Pass Normal [facility] Comment on above: Performed By: #### 2 [id number] ####[facility] [address] [place] [address] Rapid COV Int POS Ctl Pass Normal [facility] Comment on above: Performed By: #### 2 [id number] ####[address] [place] [address] SARS-CoV+SARS-CoV-2 (COVID-19) Ag IA.rapid Ql (Resp) Not detected Normal Not Detected [facility] Comment on above: Result Comment: [employer]? System for Rapid Detection of SARS-CoV-2 is [...] or revoked sooner. Performed By: #### 2 [id number] ####[address] [place] [address] ADMITTED TO INTENSIVE CARE UNIT FOR CONDITION OF INTEREST:FIND:PT: NO Normal [facility] Comment on above: Performed By: #### 2 [id number] ####[facility] [address] [place] [address] EMPLOYED IN A HEALTHCARE SETTING:FIND:PT: NO Normal [facility] Comment on above: Performed By: #### 2 701596009 ####[facility] [address] [place] [address] FIRST TEST FOR CONDITION OF INTEREST:FIND:PT: YES Normal [facility] Comment on above: Performed By: #### 2 [id number] ####[facility] [address] [place] [address] HAS SYMPTOMS RELATED TO CONDITION OF INTEREST:FIND:PT: NO Normal [facility] Comment on above: Performed By: #### 2 [id number] ####[facility] [address] [place] [address] HOSPITALIZED FOR CONDITION OF INTEREST:FIND:PT: NO Normal [facility] Comment on above: Performed By: #### 2 [id number] ####[facility] [address] [place] [address] STATUS:FIND:PT: NO Normal [facility] Comment on above: Performed By: #### 2 853283959 ####[facility] [address] [place] [address] RESIDES IN A CONGREGATE CARE SETTING:FIND:PT: NO Normal [facility] Comment on above: Performed By: #### 2 [id number] ####[facility] [address] [place] [address] Salicylateon 06-29-2022 Salicylates [Mass/Vol] mg/dL Low 6-29 [facility] Comment on above: Performed By: #### 2 209340, 0095739, 0665709, 26274108, 0691287, 0729339 ####[facility] [address] [place] [address] U BetaHcg Qualon 06-29-2022 HCG.beta subunit (U) [Moles/Vol] Negative Normal [facility] Comment on above: Performed By: #### 2 5209321 ####[facility] [address] [place] [address] U Drug Screenon 06-29-2022 Amphetamines Screen method >1000 ng/mL Ql (U) Negative Normal Negative [facility] Comment on above: Result Comment: Nega tive Cutoff: <1000 ng/mL Performed By: #### 2 435101 ####[facility] [address] [place] [address] Barbiturates Screen Ql (U) Negative Normal Negative [facility] Comment on above: Result Comment: Nega tive Cutoff: <200 ng/mL Performed By: #### 2 250190 ####[facility] [address] [facility] [place] [address] Benzodiazepines Ql (U) Negative Normal Negative [facility] Comment on above: Result Comment: Nega tive Cutoff: <200 ng/mL Performed By: #### 2 210608 ####[facility] [address] [facility] [place] [address] Cocaine Ql (U) Negative Normal Negative [facility] Comment on above: Result Comment: Nega tive Cutoff: <300 ng/mL Performed By: #### 2 652177 ####[facility] [address] [facility] [place] [address] Opiates Screen Ql (U) Negative Normal Negative [facility] Comment on above: Result Comment: Nega tive Cutoff: <300 ng/mL Performed By: #### 2 299329 ####[facility] [address] [place] [address] Phencyclidine Screen method >25 ng/mL Ql (U) Negative Normal Negative [facility] Comment on above: Result Comment: Nega tive Cutoff: <25 ng/mL These drug screen results are to be used for medical (i.e., treatment) purposes only. Unconfirmed drug screening results must not be used for non-medical purposes (e.g., employment testing, legal testing). Performed By: #### 2 427341 ####[facility] [address] [place] [address] Tetrahydrocannabinol Screen method >50 ng/mL Ql (U) Negative Normal Negative [facility] Comment on above: Result Comment: Nega tive Cutoff: <50 ng/mL Performed By: #### 2 402467 ####[facility] [address] [place] [address] eGFRon 06-29-2022 GFR/1.73 sq M.predicted among blacks MDRD (S/P/Bld) [Vol rate/Area] mL/min/{1.73_m2} Normal >=59 [facility] Comment on above: Order Comment: Order added by Discern Expert. Result Comment: eGFR is race adjusted. AA=. Performed By: #### 2 828639, 2474581, 7195027, 37085649, 8185396, 8046308 ####[address] [place] [address] GFR/1.73 sq M.predicted among non-blacks MDRD (S/P/Bld) [Vol rate/Area] mL/min/{1.73_m2} Normal >=59 [facility] Comment on above: Order Comment: Order added by Discern Expert. Result Comment: Bankruptcy Attorney vadim kidney disease could be indicated at eGFR's of less than 60 mL/min/1.73m2. Kidney failure is indicated at less than 15 mL/min/1.73m2. Performed By: #### 2 866784, 4994532, 5684800, 75055818, 6486976, 4759734 ####[facility] [address] [place] [address] Coding Summary.on 06-16-2022 Coding Summary. CD:[id number] G h0bWw+PGhlYWQ+EE1ZTYF sQ06jmQYmvZ2BT8wDAV2R YPMRNKYCJX4HFP6fyWQ4Y TbzZ6StwoXr MmojpQYlSQ94GIn1CFD3s DstFNzijH0gpCWmO9o2Dm PyHM69zZ28LWmxVPXkHoP 3LjZpbjsgbWFy A9zrYtNytFJgYdr+PHRhY mxlIHdpZHRoPScxMDAlJy LgjTzvRO2hJm1cSUAaHSM vbGxhcHNlOiBj m6ghKWUeLJcnJB0ypFciM 9ZjjXZ1UVAcw2v1Rz04lK I+JNQnXJQ4iTtjHCkgv60 9EoWyc5szNEB4 oSCaMPivTSG8R66xu7N0T PVfLDYwCAH8aGE2wK2ujU qjrmrvY4BjbLApQlZ5QYG 4nZUodC4emDcr thtqaU0jWjj+B65FHB9UM XVNTN4JWqe5Z7QxStlwqK I+HB00JOQdLI38pESbkTI om8wfkBy3OmUp MDZkIZE5qPebMLxog2JeH BQxQ95egWRfk0F6XBHpbK rfcABvYxRmxOZ7bS1jQLz rbmzgj9tbfwgx Werga3hzya60fH21S60mW GkgVBJxGQY8NLQqPPZrzH bgse8qpO5gVv2+IRash4a kr7mfwTs3LjJd WSSpghBhgYznHTO5t5NmS f65Q5XpkAqol0LsRya0qz 74hLTtg4Y6hDH2ZBitIYC buP0sHRgyRvL2 VSZrKiShmW76hAVyCIelN o6iuHizvMloZH0vKNPiaz qaOCVufL9dZYAnlQFpsJp hKL6dTNFosemm t856OvPfKUA7JYXolAOuD 0BrrF0cDbPxMMPfWCKwV6 MhvQNzWSuiA211YYozVhX 2EBZfpvFgD6Jt DASopXoeSvI6y9Z9Ei6Lg 9PbtmdxWRY9SYjdLGRiUp U5OoAkGcA9I3MdNan6BJH ieWsjAC8eE8Hk GNYjlcgpunaxwKG8KHMvB HOtvY51iCBqYJplBy6vr3 J9l545TBHcJSTevZ28Mz1 udDogMTBwdCBU wD8inqnzl2mektcbQkLmC VMlGGs3FAi0WUKgbJhiHh ByOKM6BxB2ZOK4aRNxcU9 ivEeyzmwldL1m Oyc+O30qcM8bYZR0ZOU9n ogcXARrvePqTZ79JJ85N9 RyPjwvdGFibGU+PGRpdiB juKlnFN0wFgRf x6zhj3CtYHlkB0VeZLBkL QyrOxo3RUCmYQW6hNG9tF 8mIDXgMVfkd7R8sRC6R9L iczDqvy2wf8ql DTOwEKvvN06vvDPuh1D8K TXawPF9YQRmxFplTzPzvE 93Oyc+VMKbgFpzr0CcYib xj8dyu6rejOc0 PfEiLLIgjaJmkRpcQVO8d 1CpPl68T25pQFepAEItYO BdIPNeSUTwxAmsda4lbP3 wIi8+PGNvbCB3 kTY9bK9wSRWuIpP2HLkdD 734KnEjvEHlNmbki4xgd9 hfwSf2EjXoEDKpbdAsiPq dBMW2j8FaUd59 Z93iUYsiGJTpVPIdSTYqN TYesUqanb2vlH3eFx6+PC 1fc1kqjz80eB50wLV+PHR rJNU9lHfnXPvq CZHlmB2lTMrqFeF4AFAvF hZfpL54nJCxVHhlVd4orS dpiBraWS2wZGNlkxhwv26 5CnLqc6lkQWTx zDJkTZaaPDK4N73ui4N5M LKzVSAoRAK3sFT9jJ6lvF lnbjogbGVmdDsgdmVydGl wLBbhZSdzJ743 IHRvcDsnPlBhdGllbnQgT fCdWHo2C4BpItx0QAZwbK owMV7qyIPqUVoiKd5ihMe dtYbdCP0pAVRh lbowy364ClHed4ctCGHps OXuKFdsFXL5G62ht0U6KT JoPRSsXAT7vNU4nM6tmBj nbjogbGVmdDsg apNirFmlLEriDZquM823Q HRvcDsnPkJpcnRoIERhdG X7IA33CM63kLDba0F7lIH 2J7ReCKIzinpu ierhnBQ5XFWrGDOgjL15X s3dyCqfBq9nRDGgKES0WB BizYIyV2SchX4pYmRvPNH aHFAlE9TfkBFj CZmvP875RUjxQhM7GWBft gJwD7QrLPLylDkiYoH0i1 F8Pz1BB9T4ST29CQ69tZB pz2E6lZG4K8Yi SEExqttytddftZE8EOFtE QRyyX58Ym7vuKauVv7iDY WkOQB0ZAKssFWzW2VhoA2 yOiAjMDAwMDAw Y7VlzKTvYNzmL576HTedU sR8YCWsfqWmU5VlVZLipZ xqQfA7e7D0Eb4IDQt4PP6 5AW83wMJrj9J5 xQD7N9EfRXFugofgakjtg SK2UWIzUSBhdN65Zm1pcY xqMo4eQZSdUVW0AEJbyTZ sE5QgcE6sIgOz FNEwDAKrR8PuqKSgUGitB 985VLmuUvW2YCAkrbAqC0 BnWMPeoAudDlJ1l6U3Cb5 JAHRkRK97VKF3 fSR5HV63OF84F4RlIhwcs GFibGU+PHRhYmxlIHdpZH RoPScxMDAlJyBzdHlsZT0 oYi3hVFLsLSBe rKggnQVsNtHpl4ehWZJrE CttDK0swRsdZ7KixAM8GL Lzg0g2Xi07Z13iL1BxuYS +MORiuZI1tFS1 kM2tHeTtAtM8WAixC326D dZioYNxSrvow5xyw6yvsA c3IrY0MHIwlxHcsZnnHRB 2u3HsDq24K13v IHdpZHRoPSIxNSUiIHZhb Weywk2voK4rGj6+PGNvbC X8aBH3cR8gAhZkSuN3ZVl pI495CsVvpIJu Lptnu7abx4lvfEd8DkFxA KYnohPhrUusWQT8n0DjIi 16V5WdgJzvy7HzVtq6br5 2bNNaa5N3zXT9 X4PrVWZnaxsfjEJqiHgxC U8gTJYitqgeRMTxrH3eJJ IgB7m6YySkUfN1ZQopQ9U lwtV6MHQatUHp RLwvFGC0A70il4J2QGAwQ KHnXAI1gIQ0wA7zbQhryn ogbGVmdDsgdmVydGljYWw yCAupZ812QWYs tLukXUPuzQ1yCMHcnNHps WzbMP9sWEMozfkrLhsLPr CJYIKTVFrTB5YtSHilvVP +ZBWwRVC1pYnq FHejIZFajM0qITZpB3f9B oOlUiO7QIuvS4FgWEAmhf xnYb26fG1xYrXuZrT8ZWd bY7NlpnE1JGJf gEGkIHdmJVC2S77tz5E3C VGrWLVfAZI3kAQ9gK4wiG lnbjogbGVmdDsgdmVydGl cSPneWNgcX443 ZMXalEcySlR7NbZ5JgO9V Gh4N8FxQpq7UTJfyOxrTI 7eqLQxDSnqPk1qeQimdFi yYJ3aOOBuligb ZLUgcG5gVUJkwRVihRseI Y7xABVcrpjld717FsUuMJ K5PKUwyQFhI2YyeU1oVoU xCZLkNHGcA3Ua rFHyVRsuB785RLwtAhR3I HCawbXyD3YjRPGwbIouLi N2d7Z0Ri0jNTNSWAYjgke vdGQ+PHRkIHN0 qEoqAHrzOOXdsR5rLWRaE 0b9JgLoMgC1LHbvT8YkPD DtuwlyTx99eZ4zZbUnNaN 0IOohT0PagwG9 NIQfdZOgLMkeLMK1L79ve 8W0WJAaLZRiRJX5qWS1pZ 1hbGlnbjogbGVmdDsgdmV ydGljYWwtYWxp B382CJZvxEkoZhBrmPLfL TwvdGQ+FVGtGTE1jMwyKW peVLJzwL9wHDAlI3v3RyR cXtO0HXogQ4Lk IMJjeizsCw75xC0lKyGrX eG7JRxnJ7IumuB6FRSoeS KkIYzqCUK8U32ys2Q2WIN uJWOfBFJ0pHG5 iP2fgNowfqpgtUThtZesz hQdzFeyIQiaXBqsO107AC RizUtfFw81tVAjyZubsbB 6T8HvIgloxBP+ EV70XPUhLV17oFNamFTjt 9gnxXz5SzFwOCEwJUU3bX qhOZrvn5HhOQUtM47yvLZ tz5U8WJBtqXuh kESuJxEbjGS4zM8nJZdez uhce5lassnoLcxrn0byhl 85iX04X82zFYceSXKqZXM zMCUiIHZhbGln zz9hyC7uXl4+IOVfgMP5b GL2rW0nMeLiMpU6DFywH0 33FiGpcEEmUxkro0ool5r ndCb7LtWcINLb bzFlxVppQOE1p3SrBy04P 29sIHdpZHRoPSIyMCUiIH BycJeeha5kuP9nQk8+PC9 se9hsgl93eM67 dHI+OHFsRBL6lMzhDVmvY XEskF7hWMwuCzH0MKHlQy TttN91fMXoPOttCl8kgRp olCbkMR8dYREf galzg267HmDob7viVMTwb SFiRAmsXIX0E03it1C7NV KtQVXiKJT0vYN5oK3hcTu nbjogbGVmdDsg niPrtEjeWMigSUdiF356Q GVajSmhWnFklYUxF2ecii PCIK3lXjhplYZ+PHRkIHN 0eWxlPSdwYWRk zV2sRHZjM8a7ZqZaHzE6A DmjT7DqukY2WXHqsBTbRI MbuIQVzO4vaucjg2kuupf gIzAwMDAwMDt0 KYc1XAHneDndNwMhLFU1Q dC4TPD4bCIruA0ltOwkgu bysU2jKko+RklOOjwvdGQ +VHCrXKU0aHoo UUayXGNdvP6jHCPpP8q9G gQoWlD3IJnyN6IlvxG5GI EawNKpAIOuqODDhZ8xqsq tf7prpgqrDnIi HVRyKQq0UVe4REBgbQxsS oGzTOV4SfM2OWD0vGCruX 4arUjcgaqzlK9gDku+TVJ OOjwvdGQ+PHRk ZSD8oPvkJWzoAMYawN5yD YHtD4k4UyLlGfU5VInuA8 HshkS4JMXjiEDpPZIezSA RsV1wymesn3gc tjtnTnPtTXBoXZs7XFc6J NUrxVysRqBsESB2SxS8TO I0aVAjpX7waSwjizqcrA9 wOyc+FTW0LHC5 OW51NU56Z2DfMasybITkh +PHRhYmxlIHdpZHRoPS ngILWjNzTjdTvpGO9iPp5 yZGVyLWNvbGxh cHNl (more content not included)... [facility] [facility] CT Head or Brain w/ + w/o [...] 300 Contrast amount in ml's: 100 Normal [facility] Consent for Treatmenton 06-03 Consent for Treatment [id number]:127 Normal [facility] URon 04-04-2022 , QUAL Negative Normal NEGATIVE [facility] Comment on above: Performed By: #### P REGU #### [facility] [address] [place], [place] [address] Dr. Jorge Perez PAP ACOG PANEL 2: 21 to 29on 03-24-2022 . . Normal [facility] Comment on above: Performed By: #### [id number] #### [facility] [address] [place] [address] Dr. Jorge Perez DIAGNOSIS: Comment Normal [facility] Comment on above: Result Comment: NEGA TIVE FOR INTRAEPITHELIAL LESION OR MALIGNANCY. THIS SPECIMEN WAS RESCREENED PART OF OUR PEER SPECIALIST PROGRAM. Performed By: #### 4 [id number] #### [facility] [address] [address] [address] Jorge Perez Methodology: Comment Normal [facility] Comment on above: Result Comment: This liquid based ThinPrep(R) pap test was screened with the use of an image guided system. Performed By: #### 4 [id number] #### [facility] [address] [place] [address] Dr. Jorge Perez Note: Comment Normal [facility] Comment on above: Result Comment: The Pap smear is a screening test designed to aid in the detection of premalignant and malignant conditions of the uterine cervix. It is not a diagnostic procedure and should not be used as the sole means of detecting cervical cancer. Both false-positive and false-negative reports do occur. . Performed By: #### 4 [id number] #### [facility] [address] [place] [address] Dr. Jorge Perez Performed by: Comment Normal [facility] Comment on above: Result Comment: Reymundo Fraire Heritage Consultant (ASCP) Performed By: #### 4 [id number] #### [facility] [address] [place] [address] Dr. Jorge Perez QC reviewed by: Comment Normal [facility] Comment on above: Result Comment: Gurpreet Khanna Heritage Consultant (ASCP) Performed By: #### 4 [id number] #### [facility] [address] [place] [address] Dr. Jorge Perez Reflex Criteria: Comment Normal [facility] Comment on above: Result Comment: The HPV DNA reflex criteria were not met with this specimen result therefore, no HPV testing was performed. . Performed By: #### 4 [id number] #### [facility] [address] [place] [address] Dr. Jorge Perez Specimen adequacy: Comment Normal [facility] Comment on above: Result Comment: Sati sfactory for evaluation. Endocervical and/or squamous metaplastic cells (endocervical component) are present. Performed By: #### 4 [id number] #### [facility] [address] [place], [place] [address] Dr. Jorge Perez Age Gdln ACOG Testing 21-29 Normal [facility] Comment on above: Performed By: #### 4 [id number] #### [facility] [address] [place], [place] [address] Dr. Jorge Perez Vital Signs Date Time Vital Sign Value Performing Clinician Faci lity 07-03-2022 07:30-0400 Body temperature 97.8 [degF] MD Shannon Glez Work Phone: [facility] 07-03-2022 07:30-0400 Diastolic blood pressure 81 mm[Hg] MD Shannon Glez Work Phone: [facility] 07-03-2022 07:30-0400 Heart rate 93 /min MD Shannon Glez Work Phone: [facility] 07-03-2022 07:30-0400 Respiratory rate 16 /min MD Shannon Glez Work Phone: [facility] 07-03-2022 07:30-0400 SaO2% (BldA) [Mass fraction] 98 % MD Shannon Glez Work Phone: [facility] 07-03-2022 07:30-0400 Systolic blood pressure 120 mm[Hg] MD Shannon Glez Work Phone: [facility] 06-30-2022 15:55-0400 Body height 160.02 cm MD Shannon Glez Work Phone: [facility] 06-30-2022 03:18-0400 Body weight 57.15 kg MD Shannon Glez Work Phone: [facility] Encounters Encounter Date Encounter Type Care [...] 06-06-2023 End: 06-07-2023 ambulatory Papi Lilly Facility:[facility] [place] Start: 06-04-2023 ambulatory [facility] Start: 04-24-2023 End: 04-24-2023 ambulatory [facility] Start: 12-25-2022 End: 03-26-2023 ambulatory FIONA GRIER Facility:[facility] Start: 12-09-2022 End: 12-10-2022 ambulatory Katherin PETERSEN Facility:[facility] [place] Start: 12-04-2022 End: 12-05-2022 ambulatory Sunshine Mejias Facility:[facility] [place] Start: 11-13-2022 End: 11-13-2022 ambulatory AUDREY MORGAN Facility:[facility] Start: 10-11-2022 End: 10-12-2022 ambulatory DAMI CHAPIN Facility: Start: 09-06-2022 End: 09-06-2022 ambulatory FIONA GRIER Facility: Start: 06-30-2022 End: 07-03-2022 Evaluation and management of inpatient Kyle Pepe Facility:[facility] Start: 06-30-2022 End: 07-03-2022 Evaluation and management of inpatient MD Shannon Glez Work Phone: [facility] [place] [address] Start: 06-29-2022 End: 06-30-2022 Emergency department patient visit Sai Vasquez Facility:[facility] Start: 06-12-2022 End: 06-13-2022 ambulatory Elvis Quinn Facility:[facility] Start: 04-04-2022 End: 08-02-2022 ambulatory FIONA GRIER Facility:[facility] Start: 03-20-2022 End: 03-20-[address] PALACIOS DANAY Facility:[facility] Plan of Treatment Date Care Activity Detail Author Start: 07-03-2022 [facility] Start: 06-30-[address] Operator [facility] Start: 06-30-2022 Hospital admission [facility] Patient Education Anxiety, Adult (DC) [facility] Behavioral Health [place] Instructions [facility] Work Phone: Patient referral [facility] Work Phone: Payers Date Payer Category Payer Unknown [id number] 2022 Medicaid [id number] 2022 Medicaid [id number] 2022 Unknown [id number] 2022 Self-pay 1997 Unknown [id number] 2.16.84 0.1.329728.3.579.2.593 1997 Unknown [id number] 2.16.84 0.1.302702.3.579.2.593 1997 Unknown [id number] 2.16.84 0.1.045706.3.579.2.593 1997 Unknown [id number] 2.16.84 0.1.434036.3.579.2.593 1997 Unknown [id number] 2.16.8 40.1.724345.3.579.2.727 1997 Unknown [id number] 2.16.8 40.1.278448.3.579.2.727 1997 Unknown [id number] 2.16.8 40.1.121188.3.579.2.727 1997 Unknown [id number] 2.16.8 40.1.082950.3.579.2.727 1997 Unknown [id number] 2.16.8 40.1.902631.3.579.2.727 1997 Unknown [id number] 2.16.8 40.1.996393.3.579.2.727 1997 Unknown [id number] 2.16.840 .1.666360.3.579.2.9 1997 Unknown [id number] 2.16.840 .1.185780.3.579.2.9 1997 Unknown [id number] 2.16.840 .1.498000.3.579.2.1258 1997 Unknown [id number] 2.16.840 .1.955944.3.579.2.9 1997 Unknown [id number] 2.16.840 .1.767426.3.579.2.9 1997 Unknown [id number] 2.16.840. 1.112863.3.579.2.1259 1959 Unknown [id number] 1959 Unknown [id number] Unknown [id number] 2.16.8 40.1.700241.3.579.2.531 Social History Date Type Detail Facility Start: 06-30-2022 Tobacco smoking stat us NCIS Never smoked tobacco (finding) [facility] Start: 1995 Sex Assigned At Female F [facility] Goals Date Patient Goal Desired Activity /State Functional Status Date Assessment Result Facility 07-03-2022 Functional status Patient at Baseline [facility] Work Phone: Mental Status Date Assessment Result Facility 07-03-2022 Cognitive function Cognitive Sta tus Patient at Baseline [facility] Work Phone: Clinical Notes 04-04-2022 [...] injury in September. 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 On the way to ER is reduced on its own. Since then she has pain with ambulation and edema in the left knee worse with walking. She saw an Ortho in [facility] and MRI completed which she was informed [...] be an additional personal documentation from me. [facility] 04-24-2023 Note -------- Attestation signed by [...] Patient presents with Left Knee - Pain [facility] Injury, meniscus tear injured 09/06/2022 04/24/23 Priyanka Hardin is a 28 y.o. year old female presenting for evaluation of left knee pain that first started after an injury in September. 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 On the way to ER is reduced on its own. Since then she has pain with ambulation and edema in the left knee worse with walking. She saw an Ortho in [facility] and MRI completed which she was informed [...] be an additional personal documentation from me. [facility] 11-13-2022 Note HNO ID: [id number] Author: RT Jarad(R) Service: ? Author Type: [...] RT Jarad(R) November 13, 2022 9:43 AM [facility] 09-06-2022 Note PROCEDURE: XR KNEE L T 4V or > HISTORY: Pain in left knee ; acute COMPARISON: None. FINDINGS: BONES:No fracture, acute abnormality, or significant arthropathy. SOFT TISSUES:No visible soft tissue swelling. EFFUSION:None visible. OTHER: Negative. IMPRESSION: 1. Normal examination. Electronically authenticated by: BRYAN ESPINO Date: 2022-09-06 13:41 [facility] 07-03-2022 Discharge summary Note Date/Time July 03, 2022 11:08am [facility] [address] [place] [address] Discharge Summary Signed Patient: Priyanka Hardin MR#: [id number] : 1995 Acct:[id number] Age/Sex: 27 / F Adm Date: 2 Loc: Room: [address] [place] [address]: Kyle Pepe MD Copies to: [...] 27 year old female that [facility] for [facility] overdose. Patient states she [...] Psych nurse practitioner and the therapist at [facility] in [place].Patient states she has been diagnosed with generalized [...] Reports childhood trauma Living: With boyfriend Employment: [employer] Patient was started on Cymbalta. She tolerated [...] No activity restrictions. Instructions: Anxiety, Adult (DC), [facility] Behavioral Health DC Instructions Stand Alone Forms: Work/School Release Form Prescriptions: New trazodone 50 mg Tablet 50 mg PO QHS PRN (Reason: Insomnia) Qty: 30 0RF duloxetine 30 mg Capsule,Delayed Release(Dr/Ec) 30 mg PO QHS 30 Days Qty: 30 0RF Continued Ajovy Autoinjector 225 mg/1.5 mL Auto-Injector 225 mg SUBCUT QWEEK Follow Up: [facility] [Outside] [facility] ([place]) [Outside] - 07/07/22 10:45 am (Psychiatry: 07/07/22 @ 10:45am with Fiona Grier CNP Therapy: Sunday07/14/22 @ 11:00am with Payton ) Documented By: Kyle Pepe MD 07/03/22 110 Signed By: <Electronically signed by Kyle Pepe MD> 07/03/22 1175 [facility] Work Phone: 1(301) 520-260610-30-2022 Progress note Author Kyle Pepe [facility] July 02, 2022 12:56pm Note Date/Time July 02, 2022 1 2:55pm [facility] [address] [place] [address] Psychiatry Progress Note Signed Patient: Priyanka Hardin MR#: [id number] : 1995 Acct:[id number] Age/Sex: 27 / F Adm Date: 2 Loc: Room: [address] [place] [address] Type : ADM IN Attending Dr: Kyle [...] By: <Electronically signed by Kyle Pepe MD> 07/02/223 [facility] Work Phone: 1(401) 469-729610-29-2022 Progress note Author Kyle Pepe [facility] July 01, 2022 12:46pm Note Date/Time July 01, 2022 9 :01am [facility] [address] [place] [address] Psychiatry Progress Note Signed Patient: Priyanka Hardin MR#: [id number] : 1995 Acct:[id number] Age/Sex: 27 / F Adm Date: 2 Loc: Room: 6O5647-5 Type : ADM IN Attending Dr: Kyle [...] therapy. She [facility] Continue Cymbalta 30 mg daily Monitor suicidal behaviors for safety of self (15-minute face check) Recommend attending groups and psychoeducation for building coping skills Risks, benefits and indications of medications were discussed with the patient Documented By: Areli Barbosa DO RES 07/01/22 0901 Signed By: <Electronically signed by DO CHERRY Barbosa> 07/01/22 1041 <Electronically signed by Kyle Pepe MD> 07/01/22 1246 [facility] Work Phone: 1([phone]) 876-900910-28-2022 History and physical note Author Kyle Pepe [facility] June 30, 2022 4:32pm Note Date/Time June 30, 2022 9 :25am [facility] [address] [place] [address] Psychiatry H&P Signed Patient: Priyanka Hardin MR#: [id number] : 1995 Acct:[id number] Age/Sex: 27 / F Adm Date: 2 Loc: Room: [address] [place] [address] Type: ADM IN Attending Dr: Kyle Pepe MD Copies to: MD Shannon Gillespie MD, DO, RES~ Date of Service: 06/30/2022 HPI History of Present Illness History of present illness: Ms. Hardin is a 27 year old female that was admitted to [facility] for attempted overdose. Patient states she [...] Psych nurse practitioner and the therapist at [facility].Patient states she has been diagnosed with [...] Reports childhood trauma Living: With boyfriend Employment: [employer] Mental status exam Appearance: Grossly normal Mental [...] Documented By: Areli Barbosa DO, RES 06/30/22 0954 Signed By: <Electronically signed by RES Areli Barbosa> 06/30/22 1211 <Electronically signed by Kyle Pepe MD> 06/30/22 1632 [facility] Work Phone: 1([phone]) 701-409108-02-2022 NotePROCEDURE: XR WRIST LT MIN 3 V HISTORY: Bone injury ; acute left wrist pain after falling COMPARISON: None. FINDINGS: BONES:No fracture, acute abnormality, or significant arthropathy. SOFT TISSUES:No visible soft tissue swelling. EFFUSION:None visible. OTHER: Negative. IMPRESSION: 1. No acute bone abnormality. Electronically authenticated by: BRYAN ESPINO Date: 2022-04-04 14:16[facility] Diagnosis Onset Date Resolution Status Anxiety acute Suicidal ideation acute Suicide attempt by drug overdose acute [facility] Work Phone: Hospital Discharge instructions Additional Instructions Regular diet. No activity restrictions.[facility] Work Phone: Summary Purpose Family History No [...] section and content) DATE CREATED AUTHOR 07/03/2022 [facility] DATE CREATED AUTHOR AUTHOR'S ORGANIZ ATION 10/12/2022 [facility] DATE CREATED AUTHOR AUTHOR'S ORGANIZ ATION 11/15/2022 [facility] DATE CREATED AUTHOR AUTHOR'S ORGANIZ ATION 06/09/2023 [facility] DATE CREATED AUTHOR AUTHOR'S ORGANIZ ATION 06/10/2023 Rex Ramos [facility] DATE CREATED AUTHOR AUTHOR'S ORGANIZ ATION 09/06/2023 [facility] Care Teams (unrecognized sec tion and content) Team Status: Inactive Member Role Status Dates Shannon Glez MD Primary Care Provider Active yKle Pepe MD Admit Provider, Attending Provider Active [...] BE BASED ON THE PRIMARY CLINICAL RECORDS. [facility] [employer] provides no warranty or guarantee of the accuracy or completeness of information in this document.
--- NOTE | 2023-09-19 16:21 | PC.NURSE ---
Wisam Mathew and 10 day old baby return for support. States feeding are much better, nipples almost healed and getting better sleep Breasts full, states at last feeding I dropped my cup to bra and milk just started spraying while trying to latch her Baby has weight gain and parents are proud of baby. Support and validation given to mom for efforts at . Heavy wet and mod yellow stool diaper changed. Baby to breast using good positioning and latching skills. Audible swallows noted as feeds well. Released latch after 22 min of active nursing. Parents state will call for further help as needed. Feels confident in ability to continue . Rosanna- BW 8-14, today's weight 8-10, doing well.
== END 2023-09-19 08:53 | disposition home or self-care (01) ==
LOC: FBCO 08:57
PROVIDERS: Visit Provider Obstetrics & Gynecology
DX: Z39.1 Encounter for care and examination of lactating mother (principal)

== ENCOUNTER 2024-02-25 21:29 | Emergency (ER) | payer MEDICAID, SELFPAY ==
[2024-02-25 21:39] VITALS: BP 130/78; PULSE 79; TEMP 37.4; O2SAT 98; BMI 24.8
--- OUTSIDE RECORDS SUMMARY | 2024-02-25 21:39 | XMS_ITS | CCD ---
Author Organization [facility] CliniSyct Care Team Providers Care Toggler Name Role Phone Kyle Pepe Attending Unavailable [...] CHAPIN Admitting Unavailable DAMI CHAPIN Attending Unavailable [facility] Primary Care Unavaila liz NARANJO, [...] MORGAN Referring Unavailable AUDREY MORGAN Attending Unavailable Elvis Quinn Referring Unavaila Elvis Perez Attending Unavaila Elvis Perez Admitting Unavaila Sai Godoy Attending Unavailable FIONA GRIER Referring Unavailable FIONA GRIER Attending Unavailable PEYTON GRIER Admitting Unavailable Sunshine Mejias Attending Unavailable Katherin PETERSEN Attending Unavailable Papi Lilly Attending Unavailable Unavailable Primary Care Provider UnavailSUZANNE Fleming Attending Unavailable MAMIE ADLER Attending Unavailable MAMIE ADLER Attending Unavailable MAMIE ADLER Attending Unavailable MAMIE ADLER Attending Unavailable SUZANNE JON Attending Unavailable NAYELY, MAMIE Attending Unavailable NAYELY, MAMIE Attending Unavailable MAMIE ADLER Attending Unavailable EMMIE, RONNY Attending Unavailable EMMIE, RONNY Attending Unavailable EMMIE, RONNY Attending Unavailable DAMI CHAPIN Referring Unavailable Medications Current Medications Medication Drug Class(es) Dates Sig (Normalized) Sig (Original) cephalexin 500 mg oral capsule (1 source) Cephalosporin Antibacterial Start: 10-11-2023 End: 10-16-2023 take 1 capsule by mouth in the morning cephalexin (Keflex) 500 MG capsule Indications: S/P Take 1 capsule (500 mg) by mouth in the morning and 1 capsule (500 mg) before bedtime. Do all this for 5 days. 10 capsule 0 10/11/2023 10/16/2023 Active DULoxetine 30 mg delayed release oral capsule (1 source) Serotonin and Norepinephrine Reuptake Inhibitor Start: 07-03-2022 take 30 mg by mouth once daily at bedtime Duloxetine Active 30 MG PO Daily at bedtime July 03, 2022 12:00am fluconazole 100 mg oral tablet (1 source) Azole Antifungal Start: 10-08-2023 End: 10-18-2023 take 1 tablet by mouth in the morning fluconazole (Diflucan) 100 MG tablet Indications: Thrush Take 1 tablet (100 mg) by mouth in the morning for 10 days. 10 tablet 0 10/08/2023 10/18/2023 Active 1.5 ml fremanezumab-vfrm 150 mg/ml prefilled syringe (1 source) Start: 06-30-2022 Fremanezumab-Vfrm (WavecraftovLiquidM Autoinjector) 225 mg/1.5 mL Auto-Injector Active 225 MG SUBCUT every week June 30, 2022 12:00am Pbkyfenj-Ydk-Zd-FA (, w/Iron & FA,) 27-0.8 MG tablet (1 source) Start: 01-01-2023 Qwwgyezj-Oks-Ew-F A (, w/Iron & FA,) 27-0.8 MG tablet 1 (one) time each day at the same time. 0 01/01/2023 Active traZODone hydrochloride 50 mg oral tablet (1 [...] Test Name Value Interpretation Reference Range Facility 36on 01-29-2024 36 Called and spoke keila h patient. Explained that we need to get the additional diagnosis approved first and that was uploaded to the [facility] website on 01/04/24 along with her medical. She stated that she will contact someone at the [facility] and confirmed that they received it. [facility] 36 Patient wants to kno w if her C-9 for knee surgery was approved? States she hasn't heard back,. I dont see any documentation in her chart please advise. [facility] Office Visiton 12-31-2023 Follow-up visit [id number] Priyanka Hardin 1995 F Date Provider Department Center 12/31/2023 RONNY AZAR MP ORTHO MPORTHO No family history on file Level of Service:35005 [place] OFFICE/OUTPATIENT ESTABLISHED MOD MDM 30 MIN () Reason for Visit and Comments: Follow-up [[id number]] [facility] Family Medicine Office/Clini c Noteon 06-06-2023 Family [...] with voice recognition software. Occasional wrong-word or ?gdfhc-v-gjic? substitutions may have occurred due to the [...] also states she does not know what ajwb-bmb-agzfpmq medications she is able to take. She [...] May use flonase for symptomatic tx. Contact toy packer to confirm flonase is safe usage in addition to plain robitussin. Follow up with PCP if not improving over next --- days or significantly worsening symptoms. Patient verbalized understanding of tx plan. Ordered: fluticasone nasal, 1 spray(s), Nasal, BID for 7 day(s), 16 gm, Refill(s) 0, each nostril, [facility], 159, cm, 06/06/23 11:45:00 EDT, Height/Length Dosing, 76, kg, 06/06/23 11:45:00 EDT, Weight Dosing Follow-up With When Contact Information Newton DUNCAN, [address] [place] [address]- Additional Instructions: Patient Education Upper Respiratory Infection, Adult Problem List/Past Medical History Ongoing Acute medial meniscus tear of left knee Anxiety Chlamydia Episodic mood disorder. Lower back pain Posttraumatic stress disorder Suicide attempt Historical No qualifying data Procedure/Surgical History Dilation and curettage. Medications Flonase 0.05 mg/inh Zelienople, 1 spray(s), Nasal, BID Allergies No Known Allergies Social History Alcohol - Low Risk, 12/09/2022 Current, 1-2 times per month, Household alcohol concerns: No., 12/09/2022 Substance Abuse - Low Risk, 12/09/2022 (more content not included)... [facility] Comment on above: Result Comment: Elec [...] to help relieve symptoms, such as: ? Dxwl-fzc-jqaqyxb cold medicines. ? Cough suppressants. Coughing is [...] other clear broths. General instructions ? Take zfil-kpa-yolclbb and prescription medicines only as told by [...] and water are not available, use hand tank tender. ? Avoid touching your mouth, face, [...] Get help (more content not included)... Normal [facility] Follow-Upon 06-04-2023 Follow-Up [id number] Priyanka Hardin 1995 F Date Provider Department Center 06/04/2023 RONNY AZAR MP ORTHO MPORTHO No family history on file Level of Service:46710 [place] OFFICE/OUTPATIENT ESTABLISHED MOD MDM 30-39 MIN () Reason for Visit and Comments: Pain [136] Normal [facility] Office Visiton 04-24-2023 Follow-up visit [id number] Priyanka Hardin 1995 F Date Provider Department Center 04/24/2023 RONNY AZAR MP No family history on file Level of Service:52241 [place] OFFICE/OUTPATIENT NEW MODERATE MDM 45-59 MINUTES Reason for Visit and Comments: Pain [136] - BWC Injury, meniscus tear injured 09/06/[address] [facility] [address] - Assessmentson ST - Assessments [id number] #1.00CD:127 Normal [facility] Coding Summary.on 01-01-2023 Coding Summary. CD:[id number] W w+PGhlYWQ+DH6UDVZpE21 oyADyhX0qV6ORDYhFRmqt JBASMQgGQzOaqmMwOE5dq XNjZXJu IC8+VG4iHRWwKyjebBTrz 1X1tAP6E57kcy2wNBuckV A0BWAaWkMputddb3zxuKd 6IDcuNmluOyBt PPBhzN82QPF6fV56In69h ZCteONrq3ketGv6EyQhLC YeWJE2yQebNDfnk0WyYFZ pU32qpOZci8L6 HNKlnOebpROoUaOrfDL8h J0oGEawahqch4jeehsbXx g5eg17mWYea3I4eVK2Q6E qxcQ5CGNlkRKi JvahbEMBnT4piwikd1qnd lsrEjZlENJdJHi0RHp0AW IhiUqrNfVpGA25NFQ0BMD zrhLkN4SbTCVs kRkcVmT2b6O4Uy9RF1EIX xarA1VFYSYNVMxjxFH+PC 92rk94E0TjSyfiPvk1UQL xMAU4sWF2qE3s EDLqZPvym0X4oKR0L1Rmo oYdui7ce4nxJMIuXElqZ8 0buFAzf0T3VDCxdKZ8PCK abWrfMtUiwD23 Oyc+HKLolWxvy3JtOdsca 3suk4tneYr4JviwHFBnni AevWtlPXR3i7KdUm8bAGY ifCU1uFA3vA5o QpTlQuX5SXeiV186MrLwz MGhMhevX70yE9DhaLB+PH FeBdv4JHEshTtoJC0jG0M hZGRpbmctbGVm gFknPG0eRLAflqkbHNNee H1wSEXyU6z3HhUyWgT5GX vjS8BnBFWluaruZb09mA1 hDyFiCyM1RUfl Y0HyaeD0KPXnnTZtXRyrU DA6A92xq9V5OVYaKKKyBO P5vJX8lY8otFxjfcpxyAY mdDsgdmVydGlj ZDjfPVnyM324SFZnoYwoX kNvZGluZyBEYXRlOiAgMD UvMDEvMjAyMzwvdGQ+PHR wLUS9tNifKZDs eNWsORmrMa0hvGtwvNwaA U1hZJKngcpeXKFogO6eHB VayTQpqMkjUJ5kYFHupjm sl027XxVtIRB9 SVSllUKjS7NssY7eSrLxW MNaHBMvU5AkkBHyLTycC3 54HOvdTgP9OVOvqxKaX1W sLWFsaWduOiB0 s6I2Fn6Bu0BmvyxpZ5Bah KAjTpBcPhmzWBu1R5EkMu wvdHI+DG79EJCvOS46OHb 5TMD0uLgiNRnp HOMqR2LcxD8dKpQoQPUlC GRkOyc+PHRhYmxlIHdpZH RoPScxMDAlJyBzdHlsZT0 dBp2lBGBaONGc iRzgiWCoDmYkt5idECFxQ VbwIC4nfJbvE1GkuUC5ZC Wds5p8Gf84E53pD0AtxIL +JRAyrCL9dBN4 zG4rBbUtWoX9JNbcX924A aNzcVZkAgsxj3uuz7nggM a2WoT8QLQgljPbbMtiSPW 3u2OiSg76B61u IHdpZHRoPSIxNSUiIHZhb Ember2pxU3iDi8+PGNvbC G1lTG5cX4pAdDbKhB2QQn mR340DfLspVDt Wjsoy5xnl2exgRt7UiNkO SNokmBtbKegTQA5i0EwDo 15H9WhsZfkq9XeVnt8cb1 5pFQxk5D2wQW5 R8LqCYJpmbxroULzqOelQ E5cEOBtsuaeXCMwbU8cHY SpT6j5TgGaEiV8KDgpI2Q gyzI8JOSthHVs OZHlzLIVeQ9lgslub4rmb iyiErJiRIJqMTj6RMk2YR YrqKqpMeTvCZP8XtS1FVO 3aJMcrA8veHry sitxyF1iHsg+RSJ2lPVay VOIDM6qCcoqlDL+PHRkIH Q7oPoaZHzeTCWjvN5nEPO hP8n0JlPoAhJ3 AWhcJ2UncxF4ZWUlzACgR WPjfVVQyR0sztszt5ovlh coNaFmBUBlZOg2OEl7YMD saWduOiBsZWZ0 AbQ1RXJ2dAMtcQ8cdJnso hyqgW6iXog+QmlydGggRG O6VPd7B3ClDrv3CBChvUr iUW9duVVxVFlx Bm2dzEsjcKufMV2aUCXlc eopj626CcHtr4vfSGVxtN IvKGskHPR4Q69tb4Q0HYN wCAYjHQY3aVV9 pR9rfFmoakvpcWSldKrgd vSxoQrbDEhvBIayK073PN EvjUpkOkJaDHo6H6ZoBav 9GKDbhSwvKA2r oAEvGLkjNv4etJxxzGbzS B0yOMYkymjji860BvUuk3 kvNZDuzKPsVRomZGM8G03 kw8R4TUXdARNg TXC2qUX9dW3dmUmedqdih GVmdDsgdmVydGljYWwtYW pkZ136SKIllNmvIaFriLa 3L7QiRhi6UCSe xDtnLZ9fnCTxYVccFi7ii FobtIteDR6iNEPflbyvo1 89JcHgt3aqGMBzgARnOUs aQKH0V81eq2R9 CZBjNFGfIKU4xBU1nO1fb GlnbjogbGVmdDsgdmVydG vxRWkzDStrH843FANrwTr nPlBhdGllbnQg YVspSAt1G5VeElnchYU+P A87MKKdUC98sDOqnQEuj6 bmaRd4FlYsAHFhCLM1uNx mTPwij3OcWUHb W74fwVWdg1U2MIIgbXuxx CKcOaEnbGI4hD1kILvnge cvo2jabeajXdhvb1bxnw0 3mQ96H79vREvj ZHRoPSIzMCUiIHZhbGlnb w8ywD8uNy7+RJIykKH8aN G2yY2yRUHfLeM8LXmhL89 9InRvcCIvPjxj j6man6oygJb5AaO9VGUjf mIveZltYGB3a6GhWr59M1 9sIHdpZHRoPSIyMCUiIHZ fcNedmv9zrP0y Ii8+VVNlnEJ5hPH4zY8mT nNoPyY3KBclB212YnGelP WhQoitP04aQ7DxvQX+PHR lLzx1ROUoeAvu ZP9loYNdYZstZd7fZYF9A iVkMxHaGLjcD7YpWVGccs uefwfykZD8SVWhPBTwcE1 9Dl9tpSxdVNSb dRSVnZ3srrvmv4hpyzkwE gLlBRTlQTw3DMu4QAOpqY zxMbOyIGB4NdX1EAQ5wUV wuE3utFcjarxa xI3vT7RlPFRdvzdgJc83h E3kTpWfZrW0BGghGro+Sk 2IKDQbFXYYDQCNVFGRWH9 3GA36pFOfm8Y5 fWG8R7UqLIOinwipphgee UF5KLRvOWEbmZ94cTHzSO yaUz4kd0H6v503UOBkRML fpL92Jb0rxFcf VWPqlNTFhN8qnhfhf5xpg tvxQbBdJNTwXPf2NRc9CC IttTziUcZmUGI4DjU1BGL 0hJEqfN4tlWqm yledpW7zPzk+MDcvMjcvM Zh5CmfozMH+THZtLYG1cS leCFgsQIKqeS4hFFIiZ1o 8QiKhXxO2NMin E1YoOFSmekyjBc32aU2cG hSuZkK2LUudQ4DudyD2WW SbxOYnVRtxUIL4E69fo4D 2ZLZnVPPmHMC7 aCI1bM9msTpasghhdWGch DsgdmVydGljYWwtYWxpZ2 84JYNuhSnpBhG2CRijBMW yCN14VL42tZNq v0K8mCM4X9MqCFZbbjifo fmurXK6PWZtKPKrzR15qH OaVParNz6kq4B5b434IPD aGSObeE89Ye5h yAblDFTkePPEhO8cuysjz 9zjvrpbOrGmEKAwCCy7LC c0KXHxaBpqRnHyAIC0OpY 7VZS7hFGcwM6w wEjxabnmvS0eIsy+RmVtY QwwEG64FH03vTJco7P5pW K9H2EjMSIdhbkypmdaaAF 2VURmGRRbvN72 nUHsQAuiYy8yr8K3b071Z GMkJCQyeN17Xq6utXasXA OckHZHgF4apgfdl9pddwy gIzAwMDAwMDt0 ABx0LQRdhCxvXtHjPOJ6G rC7UJP0tHVkuQ3bcBykhi uwnX1iKpg+UmVjdXJyaW5 uWZ99KE71E7Au PjwvdGFibGU+PHRhYmxlI HdpZHRoPScxMDAlJyBzdH ysBC4mGt2qZDEwGXVepWt flEXeTyVzh9se JRAtYBinZS3rjQrnV2Mjo LJ8CJOfu8l9Rd65V86hN4 JvdXA+VAXnlQE5pKA0tB8 yEePeNoQ2SVke Y070NrMtyRJmLsfcr5dej 6ilwWd7RwJfDGTxfyJlsU sdSZC0q3TnUx58W79tUIm pZHRoPSIyMCUi WLFsoFtzii4vyG0gPz1+P ABhgNN5bCQ2lN4mEoWsCv H6LYhmP654AdRggEVsFmq yC22dA4IzxCU+ OILsWbh0RHObfUvtIB1zm MBlJIdbJu4rVPP1KzJcWp ChQFotO5VyTQAxchnwbvl ezFN2TIXhGUOy lR96Gy0dlTiyUz3sKONnM YO8CMKpdSRcW7AnrN7eCa HnQBUbMAXcB4EuqPZyRGc hC523ODkuRuV5 UOQbwlSbK1QcMVUoiAewH dN0z4N9Nd5JhXkrqUXpQQ 7vGyEuUWh2M7KrFei2KRM piDpdNW8dqEAe BSbuGt5hjIvvxAzvPO3vZ DGhtzgfb403BuQag5vuJU UwyCRqMCpyOUP0N36qz5K 5AJUfUPDjNXZ4 bPN1yS6hcFayhqwnfSSez DsgdmVydGljYWwtYWxpZ2 48QDIzcEigZcPXKpf9J9F yCqk4BIGxcNdi WR4neUKnZSsyJu5qeQlde KtlNV3tRBNzuohdm777Jf Xoy5vvCOAinSQuCRhcZZT 6J47aq1P1OLRs UYOuIHD9hOQ7yS6wxLljo jogbGVmdDsgdmVydGljYW ahTCzuP249ICTyeJxcEz8 FFir2A3NyDuo9 EVDfgVfgYC1zgOAjDMpxG y9bqAereXjpEK0vAEUadk ggz078FdHdp4gwHNBadIR mJXnxVEI1L29u b9F9RIAvERCkYHZ0wJO0h X5amXytdcbyyZHmzXlakl JgdKjlLYebYAlbN436QZH vcDsnPlBheWVy OjwvdGQ+XL75df49Y1GmI auzLye5SDBiSNE6hNH7jK 9eFFLdRGjkb2T1zQJ9Z9Z qtbExzz8ua1ei YXBzZTog (more content not included)... Normal [facility] Consent for Treatmenton 12-03 Consent for Treatment [id number]#1 .00CD:127 Normal [facility] ST - Orderson 12-22-2022 ST - Orders [id number]# 1.00CD:127 Normal [facility] ST - Otheron 12-22-2022 ST - Other [id number]# 1.00CD:127 Normal [facility] Family Medicine Office/Clini c Noteon 12-09-2022 [...] day(s), # 14 tab(s), Refills(s) 0, Pharmacy: [facility] 1985, 160, cm, 12/09/22 13:50:00 [...] virus vacci (more content not included)... Normal [facility] Comment on above: Result Comment: Elec [...] home: Medicines ? Take, use, or apply xdvy-nkv-voqslve and prescription medicines only as told by [...] and water are not available, use hand tank tender. ? Do not smoke. Avoid being [...] or swell (more content not included)... Normal [facility] Provider Letteron 12-09-2022 Provider Letter December 09, 2022 PRIYANKA HARDIN [address] [place] [address] PRIYANKA HARDIN 1995 To Whom It May Concern, Please excuse above patient from work. Date of Illness:12-09-2022 May Return to Work On:next scheduled work day Restrictions: _ Comments: _ Sincerely, [facility] [address] [place] [address], [place] [address] [facility] Family Medicine Office/Clini c Noteon 12-04-2022 Family [...] Acute pharyngitis, unspecified) Ordered: Rapid Strep POC 80699 Follow-up With When Contact Information Shannon [place] [address]- Additional Instructions: Patient Education Antibiotic Resistance Upper [...] o (more content not included)... Normal [facility] Comment on above: Result Comment: Elec [...] Before and after (more content not included)... [facility] Patient Letter FTon 2022 Patient Letter [facility] [place] December 04, 2022 PRIYANKA HARDIN [address] [place] [id number] Please excuse PRIYANKA HARDIN from work . Date and/or Time of Absence: From: 12/04/22 To: 12/05/22 Restrictions: None Comments: Please excuse due to an acute illness. Provider Signature: Sunshine Mejias APRN, R DEVELOPER-C Nurse Practitioner [address] [place] [address] [facility] CNOVon 11-13-2022 [facility] Office Visit (LOORRM ) PRIYANKA HARDIN ([id number]) 1995 F Date Time Provider Department 11/13/22 9:30 AM AUDREY MORGAN During your visit today, we recorded the following information about you: Weight Height 59 kg 1.6 m Allergies As of Date: 11/13/2022 (Not on File) Date Reviewed: 11/13/2022 Reviewed by: Monie Salmon MA - Fully Assessed Reason for Visit: New [[id number]] Primary Visit Diagnosis:Acute pain of left knee [M25.562] Other Visit Diagnosis:Internal derangement of left knee [M23.92] Problem List As Of Date: 11/13/2022 (None) Encounter Status:Closed by AUDREY MORGAN II on 11/14/22 Normal [facility] XR KNEE 4V AP/PA BOTH+LAT/ME R [...] dislocation. No joint effusion. IMPRESSION: Normal radiographs. Machine Operators[facility] Transcribe Date/Time: Nov 13 2022 9:55A Dictated by : EBENEZER HORAN MD This examination was interpreted and the report reviewed and electronically signed by: OPAL WARE MD on Nov 13 2022 9:51PM EST [id number] Normal [facility] MRI KNEE LT WO CONon 023 [...] by: RONNY NARANJO Date: 2022-10-11 19:17 Normal [facility] ED Noteon 07-12-2022 ED Note [id number]# 1.00CD:127 Normal [facility] Comment on above: Other Comment: WRONG FOLDER Outside Recordson 07-12-2022 Outside Records [id number]# 1.00CD:127 Normal [facility] Coding Summary.on 07-03-2022 Coding Summary. CD:[id number] G h0bWw+PGhlYWQ+MW2BIGQ lZ96gtJAtnZ6AF5cLXO0N FGXZDKSJMY1QWL5xrLK5Q BknG1MjyaSi JwukyQSlBQ55KSo7NGO7e KkrCZpwqS6wgPZpF3l6An CnTN90xA04OSpgOJRaCaM 3LjZpbjsgbWFy T3nsLuIblYHfTdy+PHRhY mxlIHdpZHRoPScxMDAlJy HqwIdqUX7bFh4kYNDsAFX vbGxhcHNlOiBj z9ecTSFdQWehYG8ueTobT 8PliVZ0YJRlq5n4Cg30mP I+SBRpBJR6lUeyQFjnu19 4FrEkt9upVEF3 cJRvXYymAFN5S81gz7Z4A RMlQBJvGIK9vJX3uO6liB fkxqevD1WxtESkEnP9NVL 7yOQnwA2bsYyn zcouiE2sTec+H31XNO1DF XUUJF8IXql3U6PlNjeyeE I+FN39LIGdVO86pMCdnDB an1vdsQq2YpFl YVQuKIJ5jStaKSheq7YkF DPzL16haBAbd4U0QZTuyT jnzUCvIbVusUS2zR6uYTu mpaimb5vcvxzt Gpoub1rdjh71iI79V06pH WqzTZCjMTU4BJUuINFmcV dbll4dsW9xWn4+EMikx0q sd0wcfRh2TaBw NINvghGgyCfaIEO6g7XvS n78J9JafUsuh5SeCdq7kf 71bGAxf6B9iDI5CLjqBWB auO9hCFkuAjA6 FOCkNgPftX75yMVxAFexR x4peInukBnwVE3gKFMddx exNVUuhZ7jCDVlfROqtLi zHU0iIJQnetqx e791KpMfJUC2FDXcoVGrU 5HiyY3eQkQcBXAjRHDdE9 WlaBZwQQrgA187GAlpDtR 5JRFmghAdE9Dy KKStlVtqXyS9y1M6Us0Kl 8GhztyhGXT0GTgoBUTkPt PsCcYvRgW7F4SwXqd7RID udDylBX9jG1Zm UDMuxghfhamihLY5MCYhF HWrcI06eVKuJNmeOc8ss7 X4f278KXQfLRCwdS92Pw2 udDogMTBwdCBU wN6vxltsj0dghgrnJiPoF QBbDZm7UNo1RJZkdUysOu JbXCN6UlH6YRT1nTWlhE7 bhBabvuwscQ1x Oyc+T71asY4zAYM8KKG3w zxqOAXfhqPtUG63RY26I2 RyPjwvdGFibGU+PGRpdiB weWslIA7mIiVj f3bhj2IjLVzcV5EmXXNtL GrhZgf0BRXmHVI9yNH2kO 1uIEKtMQypk7F8uGW0O1N urxDfpw8mq6kp YPRaVSdsN46wlBTwu0V1C XQpoIN1LTEjmVkzAtXxaE 93Oyc+BHXfgRepv7BtXrv te3oui9cihHx0 GsLdTMRioeGnyZkoZLP0a 9WeCd09T98nFDidFBPaLS EwFFYlXMSnmUdlvp2nkR1 wIi8+PGNvbCB3 cRA9tI1bYPLcWcU3JOtgC 164MkQexKRaGcwze3rjy6 rgjUf4AcZkUMVqgiZlqYe jIOC2u8SoGf01 B67qLWzbDPUdASKaVPRtO LKaeDtbfr0jnH6hWg7+PC 0zu9fsxj64tG35iUV+PHR iDSX5aTrjDLyz KEUbqR3kTZcsWtQ4YZDsB jKoeD79bEJoHDfwLf1elF dguRowSX4rXVXspxobc59 2UlJii1bxYWMr dFQvTCyyDJM2L18cp9V8X KEkWQAjPCJ0zSB5fA5bfN lnbjogbGVmdDsgdmVydGl mORqhXQeuU961 IHRvcDsnPlBhdGllbnQgT pXcBCr3L7GgDnu8RNPqpU srAG0dvBBiMWbvWj9jlGj beKknCB0jBHOe hohpk316QbDaq7iaIQRmo XBsQTqlNNH2C24uk4S9IJ ZlUXHkMNC4nCK1jR1prFj nbjogbGVmdDsg kuPdiKoeYXgcAGrpD556V HRvcDsnPkJpcnRoIERhdG V9YC52HH12yQSzl7F2uXD 8T7QmDJFktzim tdbwlRN5XLXyRHKylG88G v5bhVxiRy0rFUPmEPN6VK JboNCaK4WwcV4oEzQkJIU nFKHvU1GpcFLv YHkwM745SPpuNmV8MORlk aKcH9RkAVNbtOroPtD2s6 V4Yl9JU9G5SJ01ZS16wOK pj2F5dPA2O1Zz PVUiaqxjyavgqJU8TIDmU BFxeJ91Qu4slZidFo8oII PjQFK5CVXwdNScH6XneN2 yOiAjMDAwMDAw N7QvnXIlDGazZ626MZhpP xU9EQJuytDfA5EaTFZavX egIfX3d5C8Dl9MKWb1YD6 2II25gNVfz3X2 lWT6W4RnUCRsreqrcyvwf ZQ8BOXmJEHrxZ23Oq6lqH ceFt7yJMVaWUR4CYZxwDT jV5PkpX1hBtHi MNFbOOAxT4AdmPCdGSgdD 219YGqpUjT0ZWKurqDmH4 ZbHRYulXwxFcD1g9S1Kd1 XGZVdCM52PNS8 tFJ5PO26DL15Q5MyGkwea GFibGU+PHRhYmxlIHdpZH RoPScxMDAlJyBzdHlsZT0 sEb4kFQRdKGMd wRiskNXeWoZgg0arIFRfF FizEH9yyIfdA4NxyRD9SE Rig0h9Mw29T43wW4VpaAY +VYZdpVH3cNM7 nV3tIhBmNkV9DBtyR492F rKiaGGmYkumc6ree2xhlX k0VbU3EBTgkpEhkFrcJNJ 4c4IwBr43T53f IHdpZHRoPSIxNSUiIHZhb Odjhe4ugS0iJt0+PGNvbC J8kQT0sJ4uBrApPfS1CVt pJ207NjBzoSYa Dtcrc3hee5xbyDg5YwQsX IWknuVnbDczYKI2x4MbGh 61C0GbdXpvn3YdGmp0md3 8kGAlr9F8sJN0 O6LzUYRbhfwgtVGlnVmwJ W4lOUSgktedRWIbfF0rZP KsT5s4VyLoAtQ3KHncB8J qdnT6PFKgqRUe UPohKCA9I10lz5E5CBJnS IWaYUD9cBK9gC4daRddeo ogbGVmdDsgdmVydGljYWw gTXxpF807VCOp dWieUDCdyE2zYNLeaAXke PrzSZ6tVIXfgbgjCjcIMa JFFGKCWAvUK4AdKGlfwUS +CPHaGZD1mZbr DBjdFOGbpL4tNGZyZ7v1C oBkAaA4YOkuI9CjXSTvpj hvSb52hD6yCcBiUfV8OTq uW4JhkuS5NWEi vDGdGVsrREW3Z56xk6R7W SHdEDAcCXZ6jTT3wJ2kdB lnbjogbGVmdDsgdmVydGl aKEwyKCznY303 PEUgnJtsWwN9BhM1WyM3D Dm4E8FnDze5NBDsjVvuTK 4gvJInJWtcKb5ouEufqFz wLF1cUDOzrieg VDGkyE0pJWMozCJmtWkzF X7bUWJhcdhjr744RbFgNZ S2UPJcxDMxO9ObbL9cSiC eGUMfKVPzN7Ly hOWjHEolX685MCgqKdB9X KUynuWfB5HzFRHdmSjkUn F7t8I2Lv7dJMRTALPttja vdGQ+PHRkIHN0 nKzzSSmlYXKgsE7lHYAvJ 4c3AyAkMkR9TBxxK1LwKY AbslzhEf25zX6hXdJaKxX 9NDadT7EvkgW4 CXNbbFJvZTgwFQF1D17jm 8T3QVJbYEZmWIR9pII7tI 1hbGlnbjogbGVmdDsgdmV ydGljYWwtYWxp H246ZBVplKeeDkNdlSJpE TwvdGQ+FXKsPVW2cTsyQM sfDPWfnF2sZEYjM4w6EkG aXpS9IFnhN2Ge QHHvbbtuWb35uV7rRgRxR mH4QBusK9SbpeE1UEPbiX TpPPhpGOV5M34fs5S8WBZ kNZNaKEL2mSA1 aN2sgFxaacovrIKciDhdi bGauAigOMmhXEdxP214MK GvpCznUxDmKXVhMN3mnJx vdGQ+OV83cn83 M6HuNuksLmi3FUWqDCZ9i AC4vN9lRYAyOTukq9D6jB P7X0NwuhAgik9eg3waUAV vNBndQ68xgTYs u8W0LBJgeXB3DKMqnSkcW pBdeZ37Ukv+PGNvbGdyb3 DyWlwdn4cns1ykuRv0KhA wJSIgdmFsaWdu FAQ8y2IjQj53F20lXXmvL HRoPSIzMCUiIHZhbGlnbj 0moK8gRt9+ASVekZY8dCB 5pH9pMeXhMdM3 HEmrF468XuXrhIXaPvsrx 2vsx8kupNf1EpFqSETmub HpsTmvROZ3d2YrMf02A5Q exLfbg4KpTmf2 ok87dCMez6L8oPL9D5AkB MRvjvmbuNHcmVosCG2lHO UxinmdUZCoiO9vEAPaB6b 3EfOxNlT4ZNdq K7TvcjB4MSYvlCZoPEYtb TISmP4wcnwfj8zqjdjpHr HxACYcCAx1VYq5MYNaeDv wFpZoCTO2TaL8 ZRF4fZYqaQ8siXesrjpxs G9wOyc+IJe0f5cccNBrPG 7czDG7SN83XR46vSSli7X 3kGO4H7OcZNNb bjkuqijtyII1MKKtECIlr F96Oe1ntUpiJo5aDMXjAI C2XBEqmGIxA3YasE6lNeL vRYEaUHZfC0Nq oKBpYEgcJ036FJieHfQ8P NBebzTcP6ApAJBsnKnzLo A6x4T1Cd8SOI72SC51MT5 8bZHha9G4lHE1 B0XuTAHnucheqdhoaPG5P YMxSAFkjM52Jh5inBxzLe 5yXKEgYPI3TJQdnFDnM4E joC0cFnOoLKUw QVBvP1YemYPlLRolR448X IbuXrR6BHZlzqDiF9BaOS DaaGjtEyE7c7C4Ms6BQf9 8IQ08CM28lXJu t0T9cZJ8R7UqXCEtixhgl yiodNY8TEJmPQSvkN04Nq 5gyFgjRf2zKPThUKU6TLR lmKUuQ2UddC2k KeOeBOAcAYKjG6SaxLQfL MmwD808NRgbNnN7SMJjti RhK3ZsAXSnsOryJzF2q6B 5Qc3OOTuoxti1 Y9QgLimdbCZ+WS03IHJcM Y52zNVhmADlk8brdDx5Us LsZEEiMMM8mXvlBQgzx6Y fQUSpN54xnGNp c2U6 (more content not included)... Normal [facility] Cholesterol [Mass/volume] in Serum or PlasmaOrdered By: Kyle Pepe on 06-30-2022 Cholesterol [Mass/Vol] 135 mg/dL 140-200 [facility] Comment on above: Chol less than 200 m g/dl low riskChol 201-239 mg/dl borderline riskChol 240 mg/dl and greater high risk Cholesterol in LDL Calc [Mas s/Vol]Ordered By: Kyle Pepe on 06-30-2022 Cholesterol in LDL [Mass/Vol] 66 mg/dL 0-100 [facility] Comment on above: LDL ATP III CLASSIFI CATIONLDL less than 100 mg/dL OptimalLDL 100-129 mg/dL Near or above optimalLDL 130-159 mg/dL Borderline highLDL 160-189 mg/dL HighLDL greater than 189 mg/dL Very high Cholesterol in VLDL Calc [Ma ss/Vol]Ordered By: Kyle Pepe on 06-30-2022 Cholesterol in VLDL [Mass/Vol] 4 mg/dL [facility] ED Clinical Summaryon 2021 ED Clinical Summary [place] [id number] ED Clinical Summary Person Information Name: PRIYANKA HARDIN [facility] Age: 27 Years : 1995 Sex: Female Language: Irish PCP: Shannon Glez MD Marital Status: Single [...] 06/29/2022 23:43:15 06/29/2022 23:43:15 ADDRESS: [place] [facility] [id number] PHYS DOC NOTES: MEDICAL INFORMATION: Prescriptions Given: Medications to Continue with No Changes Other Medications diphenhydrAMINE (Benadryl 25 mg Cap) 1-2 cap(s) By Mouth 3 times a day as needed as needed for itching. Refills: 0. famotidine (Pepcid 20 mg Tab) 1 Tablets By Mouth 2 times a day. Refills: 0. PATIENT EDUCATION INFORMATION: Instructions: Follow up: DIAGNOSIS: 1:Suicidal ideation Normal [facility] ED Patient Education Noteon 06-30-2022 ED Patient Education Note Normal [facility] ED Patient Summaryon 022 ED Patient Summary [address] [address] Patient Discharge Instructions Person Information Name: PRIYANKA HARDIN Age: 27 Years Arrival Date: 06/29/2022 17:33:15 Discharge Diagnosis: 1:Suicidal ideation Primary Care Physician: Shannon lGez MD Provider Information Primary Provider: Sai Vasquez DO Advanced Custodial Manager:Arnoldo Wellington PA-C The exam and treatment you received in the Emergency Department were for an urgent problem and are not intended as complete care. It is important that you follow up with a doctor, nurse practitioner, or physician?s res habilitation assistant for ongoing care. If your symptoms [...] opioids can be used to help relieve [id number] pain and are often prescribed following a [...] be struggling with addiction, tell your health healthcare administration intern and ask for guidance or call [facility] Helpline at [phone]. w Source: [place] Department of Health and Human Services/Center for Disease Control & Prevention [facility] Medications Given: Medication Dose Rou (more content not included)... Normal [facility] EMS Documentationon 06-30-20 EMS Documentation [id number] Normal [facility] Lipid Panelon 06-30-2022 Cholesterol [Mass/Vol] 135 mg/dL Low 140-200 [facility] Comment on above: Result Comment: Chol less than 200 mg/dl low risk Chol 201-239 mg/dl borderline risk Chol 240 mg/dl and greater high risk Performed By: #### T SH3 [id number], [id number], LIPID #### [facility] [address] [id number] [place] Cholesterol in HDL [Mass/Vol] 65 mg/dL Normal 35-85 [facility] Comment on above: Result Comment: HDL CHOL ATP-III CLASSIFICATION Cardiovascular Risk HDL > or equal to 60 mg/dL LOW HDL < 40 mg/dL HIGH Performed By: #### T SH3 wRFLX, [id number], LIPID #### [facility] [id number] [facility] Cholesterol.total/Choles terol in HDL [Mass ratio] 2.1 {ratio} Normal <5.0 [facility] Comment on above: Performed By: #### T SH3 wRFLX, [id number], LIPID #### [facility] [address] LDL Cholesterol,Calculated 66 mg/dL Normal 0-100 [facility] Comment on above: Result Comment: LDL ATP III CLASSIFICATION LDL less than 100 mg/dL Optimal LDL 100-129 mg/dL Near or above optimal LDL 130-159 mg/dL Borderline high LDL 160-189 mg/dL High LDL greater than 189 mg/dL Very high Performed By: #### T SH3 wRFLX, [id number], LIPID #### [facility] [address] Triglyceride w/Reflex 20 mg/dL Low 35-149 [facility] Comment on above: Result Comment: TRIG ATP III CLASSIFICATION TRIG less than 150 mg/dL Normal TRIG 150-199 mg/dL Borderline high TRIG 200-500 mg/dL High TRIG greater than 500 mg/dL Very high Standard traceable to the Center for Disease Conrtrol and Prevention (CDC) test method. Performed By: #### T SH3 wRFLX, [id number], LIPID #### [facility] [address] VLDL CHOLESTEROL 4 mg/dL Normal [facility] Comment on above: Performed By: #### T SH3 wRFLX, [id number], LIPID #### [facility] [address] No Panel InformationOrdered By: Kyle Pepe on 06-30-2022 25-Hydroxy Vitamin D Total 22.3 ng/mL 30-100 [facility] Comment on above: VITAMIN D STATUS [...] Cholesterol in HDL [Mass/Vol] 65 mg/dL 35-85 [facility] Comment on above: HDL CHOL ATP-III CLA SSIFICATION Cardiovascular RiskHDL > or equal to 60 mg/dL LOWHDL < 40 mg/dL HIGH Serum or plasma total choles terol/high density lipoprotein (HDL) cholesterol mass ratOrdered By: Kyle Pepe on 06-30-2022 Cholesterol.total/Choles terol in HDL [Mass ratio] 2.1 {ratio} <5.0 [facility] TSH DL <= 0.005 mIU/L QnOrde red By: Kyle Pepe on 06-30-2022 TSH Qn 1.66 m[IU]/L 0.45-5.33 [facility] Thyroid Stim Hormone w/Rflxo n 06-30-2022 Thyroid Stim Hormone w/Rflx 1.66 u[iU]/mL Normal 0.45-5.33 [facility] Comment on above: Performed By: #### T SH3 wRFLX, [id number], LIPID #### [address] Transfer Documentson 022 Transfer Documents [id number]# 1.00CD:127 Normal [facility] Triglyceride [Mass/volume] i n Serum or PlasmaOrdered By: Kyle Pepe on 06-30-2022 Triglyceride [Mass/Vol] 20 mg/dL 35-149 [facility] Comment on above: TRIG ATP III CLASSIF ICATIONTRIG less than 150 mg/dL NormalTRIG 150-199 mg/dL Borderline highTRIG 200-500 mg/dL High TRIG greater than 500 mg/dL Very highStandard traceable to the Center for Disease Conrtrol and Prevention (CDC) test method. Valuables Checkliston 2021 Valuables Checklist [id number]# 1.00CD:127 Normal [facility] Vitamin D 25 Hydroxy Totalon 06-30-2022 Vitamin D 25 Hydroxy Total 22.3 ng/mL Low 30-100 [facility] Comment on above: Result Comment: NOEMÍ MIN D STATUS 25(OH)VITAMIN D RANGE (ng/mL) Deficient <20 Insufficient 20 to <30 Sufficient 30 to 100 Reference: Constantino MF,Claudio NC, Martin IBRAHIM, et al. Evaluation,treatment, and prevention of vitamin D deficiency; an Endocrine Society clinical practice guideline. JCEM. 2010; 96(7):1911-30. PERFORMED BY: [facility] [address] [place] [address] PATHOLOGIST PLATE DRYING MACHINE TENDER JUNIE ARMENDARIZ M.D. Performed By: #### T SH3 wRFLX, [id number], LIPID #### [facility] [address] [place] [address] [facility] Acetamnphn Lvlon 06-29-2022 Acetaminophen [Mass/Vol] ug/mL Low 15-30 [facility] Comment on above: Performed By: #### 2 428922, 6319187, 6604759, 98576040, 1858021, 4553121 ####[facility] [address] [place] [address] Auto Diffon 06-29-2022 Basophils/100 WBC (Bld) 0.6 % Normal 0.0-2.0 [facility] Comment on above: Order Comment: Order Added by Discern Expert. Performed By: #### 2 776886, 6442433, 1123025, 61163409, 8913980, 4546325 ####[facility] [address] [place] [address] Basophils/Leukocytes Auto (Bld) [Pure # fraction] 0.1 E9/L Normal 0.0-0.2 [facility] Comment on above: Order Comment: Order Added by Discern Expert. Performed By: #### 2 911947, 9748680, 0955743, 49947763, 0334590, 8318232 ####[facility] [address] [place] [address] Eosinophils/100 WBC (Bld) 2.9 % Normal 0.0-8.0 [facility] Comment on above: Order Comment: Order Added by Discern Expert. Performed By: #### 2 632375, 6955757, 4552157, 27871831, 8041395, 6855585 ####[facility] [address] [place] [address] Eosinophils/Leukocytes Auto (Bld) [Pure # fraction] 0.3 E9/L Normal 0.0-0.5 [facility] Comment on above: Order Comment: Order Added by Discern Expert. Performed By: #### 2 755906, 9921225, 0552924, 08034589, 4104871, 3461221 ####[address] [place] [address] Lymphocytes/100 WBC (Bld) 24.2 % Normal 14.0-50.0 [facility] Comment on above: Order Comment: Order Added by Discern Expert. Performed By: #### 2 575955, 4634431, 6550626, 79627415, 6959003, 1139522 ####[address] [address] Lymphocytes/Leukocytes Auto (Bld) [Pure # fraction] 2.3 E9/L Normal 1.0-4.0 [facility] Comment on above: Order Comment: Order Added by Jey Expert. Performed By: #### 2 142400, 3059859, 3781455, 95595540, 5422046, 1568821 ####[address] [place] [address] Monocytes/100 WBC (Bld) 6.5 % Normal 4.0-14.0 [facility] Comment on above: Order Comment: Order Added by Discern Expert. Performed By: #### 2 900172, 6703921, 6790931, 48729712, 8698578, 6247632 ####[address] [place] [address] Monocytes/Leukocytes Auto (Bld) [Pure # fraction] 0.6 E9/L Normal 0.2-1.0 [facility] Comment on above: Order Comment: Order Added by Jey Expert. Performed By: #### 2 251201, 7954847, 7352526, 41915951, 2519466, 8613618 ####[address] [place] [address] Neutrophils/100 WBC (Bld) 65.8 % Normal 36.0-75.0 [facility] Comment on above: Order Comment: Order Added by Discern Expert. Performed By: #### 2 592795, 9908229, 1623631, 35690945, 1154912, 4732127 ####[address] [place] [address] Neutrophils/Leukocytes Auto (Bld) [Pure # fraction] 6.4 E9/L Normal 2.0-7.5 [facility] Comment on above: Order Comment: Order Added by Discern Expert. Performed By: #### 2 870705, 4011587, 1218895, 46510452, 5990541, 1152023 ####[address] [address] CBC w/ Auto Diffon Erythrocyte distribution width (RBC) [Ratio] 11.9 % Normal 10.9-14.2 [facility] Comment on above: Performed By: #### 2 131956, 7301532, 1188300, 71669396, 6533056, 1477856 ####[address] [place] [address] Hematocrit (Bld) [Volume fraction] 37.9 % Normal 34.0-46.0 [facility] Comment on above: Performed By: #### 2 027493, 7529707, 7079211, 64584866, 1827396, 4926490 ####[address] [place] [address] Hemoglobin (Bld) [Mass/Vol] 13.2 g/dL Normal 12.0-16.0 [facility] Comment on above: Performed By: #### 2 520134, 8407145, 8381588, 54459811, 7485422, 9307997 ####[address] [place] [address] MCH (RBC) [Entitic mass] 30.8 pg Normal 27.0-34.0 [facility] Comment on above: Performed By: #### 2 507940, 5697420, 7334967, 69700864, 5652414, 6704488 ####[address] [place] [id number] MCHC (RBC) [Mass/Vol] 34.8 g/dL Normal 31.4-36.0 [facility] Comment on above: Performed By: #### 2 582311, 7415066, 3389922, 87571146, 2789795, 8238493 ####[address] [place] [id number] MCV (RBC) [Entitic vol] 88.4 fL Normal 80.0-100.0 [facility] Comment on above: Performed By: #### 2 629518, 1949856, 4030616, 31267502, 6335970, 6137964 ####[address] Platelet mean volume (Bld) [Entitic vol] 8.7 fL Normal 6.4-10.8 [facility] Comment on above: Performed By: #### 2 260783, 2300923, 6483924, 35961002, 2986546, 2685902 ####[address] Platelets (Bld) [#/Vol] 256.0 E9/L Normal 150.0-500.0 [facility] Comment on above: Performed By: #### 2 990627, 6472039, 2720127, 15220235, 3288669, 9038756 ####[address] [place] [id number] RBC (Bld) [#/Vol] 4.3 E12/L Normal 4.3-5.9 [facility] Comment on above: Performed By: #### 2 698640, 4028914, 5632496, 72370233, 1913505, 6842456 ####[address] [address] WBC corrected for nucl RBC Auto (Bld) [#/Vol] 9.7 E9/L Normal 4.0-11.0 [facility] Comment on above: Performed By: #### 2 209895, 8059120, 2065642, 03413572, 3356802, 2509500 ####[facility] [address] [place] [address] CMPon 06-29-2022 Albumin [Mass/Vol] 4.7 g/dL Normal 3.3-5.0 [facility] Comment on above: Performed By: #### 2 744931, 0944776, 3449960, 26424275, 6976293, 4859795 ####[address] [place] [address] Albumin/Globulin (S) [Mass conc ratio] 1.3 Normal 1.1-2.2 [facility] Comment on above: Performed By: #### 2 540966, 6294989, 1343652, 46916812, 6743874, 6673491 ####[address] [place] [address] ALP [Catalytic activity/Vol] 59 Int._Unit/L Normal 21-98 [facility] Comment on above: Performed By: #### 2 060672, 8802990, 7062519, 05121663, 4368494, 6849822 ####[facility] [address] [place] [address] ALT No additional P-5'-P [Catalytic activity/Vol] 17 Int._Unit/L Normal 6-46 [facility] Comment on above: Performed By: #### 2 681164, 4009411, 5142573, 17321048, 7445930, 1945538 ####[facility] [address] [place] [address] AST [Catalytic activity/Vol] 20 Int._Unit/L Normal 5-43 [facility] Comment on above: Performed By: #### 2 097240, 7964518, 1677395, 08662718, 8205907, 1492769 ####[facility] [address] [place] [address] Bilirubin [Mass/Vol] 1.1 mg/dL Normal 0.0-1.1 [facility] Comment on above: Performed By: #### 2 302805, 7094052, 3767185, 62753479, 4382423, 7388417 ####[facility] [address] [place] [address] Creatinine [Mass/Vol] 0.7 mg/dL Normal 0.5-1.3 [facility] Comment on above: Performed By: #### 2 086268, 7218522, 4790370, 88738560, 3123547, 5464341 ####[facility] [address] [place] [address] Globulin (S) [Mass/Vol] 3.6 g/dL Normal 1.4-4.0 [facility] Comment on above: Performed By: #### 2 307526, 8413022, 9098837, 72078866, 8296268, 0505295 ####[facility] [address] [place] [address] Protein [Mass/Vol] 8.3 g/dL High 6.0-7.8 [facility] Comment on above: Performed By: #### 2 332956, 2983348, 7257279, 71645209, 1528071, 0932689 ####[facility] [address] [place] [address] Urea nitrogen [Mass/Vol] 9 mg/dL Normal 5-21 [facility] Comment on above: Performed By: #### 2 103935, 5989700, 2104596, 69433082, 7139761, 4951358 ####[facility] [address] [place] [address] Urea nitrogen/Creatinine [Mass ratio] 13 No Units Normal 10-20 [facility] Comment on above: Performed By: #### 2 203851, 0553819, 4914161, 96312491, 4713298, 3519020 ####[facility] [address] [place] [address] Anion gap [Moles/Vol] 14 mmol/L Normal 6-16 [facility] Comment on above: Performed By: #### 2 797896, 2598265, 6024541, 72457615, 5707999, 5792820 ####[facility] [address] [place] [address] Calcium [Mass/Vol] 9.9 mg/dL Normal 8.9-11.1 [facility] Comment on above: Performed By: #### 2 825053, 4753145, 1442172, 18574239, 0492969, 1175453 ####[facility] [address] [place] [address] Chloride [Moles/Vol] 102 mmol/L Normal 101-111 [facility] Comment on above: Performed By: #### 2 468162, 5384860, 4473825, 39311839, 9905026, 7614469 ####[facility] [address] [place] [address] CO2 [Moles/Vol] 24 mmol/L Normal 21-31 [facility] Comment on above: Performed By: #### 2 382380, 6358332, 9819686, 54038255, 7478805, 6568797 ####[facility] [address] [place] [address] Glucose [Mass/Vol] 103 mg/dL Normal 55-199 [facility] Comment on above: Result Comment: If t his glucose result represents a fasting glucose, interpretation should refer to the following reference range: 55-99 mg/dL Performed By: #### 2 596845, 3946636, 7687340, 18187942, 2890588, 0478911 ####[facility] [address] [place] [address] Potassium [Moles/Vol] 4.1 mmol/L Normal 3.5-5.3 [facility] Comment on above: Performed By: #### 2 349574, 2071256, 7639877, 93627542, 6933765, 6282961 ####[facility] [address] [place] [address] Sodium [Moles/Vol] 136 mmol/L Normal 135-145 [facility] Comment on above: Performed By: #### 2 120636, 9564124, 8243404, 45442396, 4832716, 5540653 ####[facility] [address] [place] [address] Consent for Treatmenton 06-04 Consent for Treatment [id number]#1 .00CD:127 Normal [facility] ED Note-Physicianon 06-29-20 ED Note-Physician Basic Information Time Seen: Arnoldo Wellington PA-C 06/29/2022 17:39 Chief Complaint pt arrives via [facility] for suicidal ideations. pt states she took [...] follow-up and disposition. Patient was evaluated by [facility]. She was accepted for placement at [facility] by Dr. Pepe. Assessment/Plan 1. Suicidal [...] % (06/29/22::) Lymph Auto: 24.2 % (06/29/22::00) [place] Auto: 6.5 % (06/29/22::) Eos Auto: 2.9 % (06/29/22) Basophil Auto: 0.6 % (06/29/22:) Neutro Absolute: 6.4 E9/L (06/29/22::) Lymph Absolute: 2.3 E9/L (06/29/22::) [place] Absolute: 0.6 E9/L (06/29/22:00) Eos Absolute: 0.3 E9/L (06/29/22::00) Basophil Absolute: 0.1 E9/L (06/29/22:) Glucose Lvl: 103 mg/dL (06/29/22::00) BUN: 9 mg/dL (06/29/22::) Creatinine: 0.7 mg/dL (06/29/22::) eGFR: >60 (06/29/22:) eGFR AA: >60 (06/29/22::) BUN/Creat Ratio: 13 (06/29/22::) Sodium Lvl: 136 mmol/L (06/29/22::00) Potassium Lvl: 4.1 mmol/L (06/29/22::00) Chloride: 102 mmol/L (06/29/22::00) CO2: 24 mmol/L (06/29/22::00) AGAP: 14 mEq/L (10/27/22 18:01:00) Calcium Lvl: 9.9 mg/dL (06/29/22 18:01:00) Alk Phos: 59 Int._Unit/L (06/29/22 18:01:00) ALT: 17 Int._Unit/L (06/29/22 18:01:00) AST: 20 Int._Unit/L (06/29/22 18:01:00) Total Protein: 8.3 gm/dL High (06/29/22 18:01:00) Albumin Lvl: 4.7 gm/dL (06/29/22 18:01:00) Globulin: 3.6 gm/dL (06/29/22 18:01:00) A/G Ratio: 1.3 (06/29/22 18:01:00) Bili Total: 1.1 mg/dL (06/29/22 18:01:00) Acetaminoph Lvl: <10 Low (10 (more content not included)... Normal [facility] Comment on above: Result Comment: Elec tronically Signed By: Arnoldo Wellington PA-C\.br\Date and Time Signed: 06/29/22 18:19 EDT\.br\Electronically Co-Signed By: Lili Hollis DO\.br\Date and Time Co-Signed: 06/29/22 20:35 EDT\.br\Electronically Co-Signed By: Sai Vasquez DO\.br\Date and Time Co-Signed: 06/30/22 19:05 EDT Ethanolon 06-29-2022 Ethanol [Mass/Vol] mg/dL Normal <=7 [facility] Comment on above: Performed By: #### 2 813750 ####[facility] [address] [place] [address] Rapid COVID Antigen ([facility])on 06-29-2022 Rapid COV Int NEG Ctl Pass Normal [facility] Comment on above: Performed By: #### 2 [id number] ####[facility] [address] [place] [address] Rapid COV Int POS Ctl Pass Normal [facility] Comment on above: Performed By: #### 2 [id number] ####[address] [place] [address] SARS-CoV+SARS-CoV-2 (COVID-19) Ag IA.rapid Ql (Resp) Not detected Normal Not Detected [facility] Comment on above: Result Comment: The [employer]? System for Rapid Detection of SARS-CoV-2 is [...] or revoked sooner. Performed By: #### 2 [id number] ####[facility] [address] [place] [id number] ADMITTED TO INTENSIVE CARE UNIT FOR CONDITION OF INTEREST:FIND:PT: NO Normal [facility] Comment on above: Performed By: #### 2 [id number] ####[facility] [address] [place] [address] EMPLOYED IN A HEALTHCARE SETTING:FIND:PT: NO Normal [facility] Comment on above: Performed By: #### 2 [id number] ####[facility] [address] [place] [address] FIRST TEST FOR CONDITION OF INTEREST:FIND:PT: YES Normal [facility] Comment on above: Performed By: #### 2 [id number] ####[facility] [address] [place] [address] HAS SYMPTOMS RELATED TO CONDITION OF INTEREST:FIND:PT: NO Normal [facility] Comment on above: Performed By: #### 2 [id number] ####[facility] [address] [place] [address] HOSPITALIZED FOR CONDITION OF INTEREST:FIND:PT: NO Normal [facility] Comment on above: Performed By: #### 2 [id number] ####[facility] [address] [place] [address] STATUS:FIND:PT: NO Normal [facility] Comment on above: Performed By: #### 2 [id number] ####[facility] [address] [place] [address] RESIDES IN [facility]:FIND:PT: NO Normal [facility] Comment on above: Performed By: #### 2 [id number] ####[facility] [address] [place] [address] Salicylateon 06-29-2022 Salicylates [Mass/Vol] mg/dL Low 6-29 [facility] Comment on above: Performed By: #### 2 328422, 7322058, 5380191, 44405538, 3354571, 9401974 ####[facility] [address] [place] [address] U BetaHcg Qualon 06-29-2022 HCG.beta subunit (U) [Moles/Vol] Negative Normal [facility] Comment on above: Performed By: #### 2 0548724 ####[facility] [address] [place] [address] U Drug Screenon 06-29-2022 Amphetamines Screen method >1000 ng/mL Ql (U) Negative Normal Negative [facility] Comment on above: Result Comment: Nega tive Cutoff: <1000 ng/mL Performed By: #### 2 963104 ####[facility] [address] [place] [address] Barbiturates Screen Ql (U) Negative Normal Negative [facility] Comment on above: Result Comment: Nega tive Cutoff: <200 ng/mL Performed By: #### 2 899190 ####[facility] [address] [facility] [place] [address] Benzodiazepines Ql (U) Negative Normal Negative [facility] Comment on above: Result Comment: Nega tive Cutoff: <200 ng/mL Performed By: #### 2 521609 ####[facility] [address] [place] [address] Cocaine Ql (U) Negative Normal Negative [facility] Comment on above: Result Comment: Nega tive Cutoff: <300 ng/mL Performed By: #### 2 434599 ####[facility] [address] [facility] [place] [address] Opiates Screen Ql (U) Negative Normal Negative [facility] Comment on above: Result Comment: Nega tive Cutoff: <300 ng/mL Performed By: #### 2 617985 ####[facility] [address] [place] [address] Phencyclidine Screen method >25 ng/mL Ql (U) Negative Normal Negative [facility] Comment on above: Result Comment: Nega tive Cutoff: <25 ng/mL These drug screen results are to be used for medical (i.e., treatment) purposes only. Unconfirmed drug screening results must not be used for non-medical purposes (e.g., employment testing, legal testing). Performed By: #### 2 730528 ####[facility] [address] [place] [address] Tetrahydrocannabinol Screen method >50 ng/mL Ql (U) Negative Normal Negative [facility] Comment on above: Result Comment: Nega tive Cutoff: <50 ng/mL Performed By: #### 2 099474 ####[facility] [address] [place] [address] eGFRon 06-29-2022 GFR/1.73 sq M.predicted among blacks MDRD (S/P/Bld) [Vol rate/Area] mL/min/{1.73_m2} Normal >=59 [facility] Comment on above: Order Comment: Order added by Discern Expert. Result Comment: eGFR is race adjusted. AA=. Performed By: #### 2 096444, 3513710, 5884823, 74121098, 5859593, 4443767 ####[facility] [address] [place] [address] GFR/1.73 sq M.predicted among non-blacks MDRD (S/P/Bld) [Vol rate/Area] mL/min/{1.73_m2} Normal >=59 [facility] Comment on above: Order Comment: Order added by Discern Expert. Result Comment: Stone Splitter vadim kidney disease could be indicated at eGFR's of less than 60 mL/min/1.73m2. Kidney failure is indicated at less than 15 mL/min/1.73m2. Performed By: #### 2 381149, 4062769, 1331332, 73174686, 1234649, 8648542 ####[facility] [address] [place] [address] Coding Summary.on 06-16-2022 Coding Summary. CD:[id number] G h0bWw+PGhlYWQ+UK6INRO lW69wzCJjlQ8QG9tCFU9G FVYIPMYFNP6ARH1rbJR0P VqrB0QmrvWc PrjabIXvRM07RXg2GFA9f NvgXSineA6gvNNdQ7f6Ph RpIS97fQ36XFwfIAZdKiX 3LjZpbjsgbWFy U0krUaQsfYSrEcl+PHRhY mxlIHdpZHRoPScxMDAlJy QaaFdpQZ6lWf7aRDEhOOP vbGxhcHNlOiBj m0vmGOKgDKazQB5ozGrtG 4GrmXT2LNJdq2v9Cr82lK I+UYCxMJT4xBjoGNzxy54 7BjMee5dqCWY9 sPYdQRjqUIB5G91xi7R6P BFxKLMrTZP4xAF0mD8vsH lydpkeH5XneGHlXwW9YVU 5dJWcqA1lvVnt wwitaF2cPiq+U32WCE1XM IRNZG8NCcz5Q2NsZuozeP I+VL44IAHyLA76mPRpfBB hk2gvkUs1VcBq SGZsZLW9rEwrZVeah4GzF VYdY74hlKFyn4F4WANayN mnsFKoPwJwzMS0hD1oRNq xfjzdm5zososq Kpkqw1yloy56yK39C51nR GroAHQmBPT5IHGpIWKjsZ xexz5ynR7pCf1+TRnnx3h ez7qdiBy2QdDm BDTgukKdiVanQOE4g1RmB m40U4BkvDxhx6YlAuk8ee 96mNVrb5Q2mZT6BXjvJZK nkU0tSWiwPiB9 FBLhNlAqcP78pRWaNPhaZ l3jvSscpXooVD2eJQRzvy npWPLggV9yRRDpfWRzvCc gCJ9iAUKquhly x815AqYkHCL5LMTmpFToE 3NwrB9pEzSmVOShBBJeY2 KyrRRuDQojQ258NWmtJwJ 5XAUayiPdJ1Bn UPOwjBguJeO0b2O3No6Xa 0BhqdvwOGN0OAkyALQcTg S4EzCmEbX6G4AqGqu8LFS sgQusHC8aA2Ko MMYjxkjwdfdweHC7SMFdG BLcvV09fNNySGdqOk7by1 Q5x172CTTcVNEteZ74Nu6 udDogMTBwdCBU pH4jcqjav8sbmdetFfKbT ELkLKj2DAq4KRFjhAovWx GtOAA7UnZ0RCC2uCGboT3 ooXhrcjyusF7v Oyc+P53niP5nBID1ITT0n bngHOPixrDlAR71XS92D2 RyPjwvdGFibGU+PGRpdiB ckLhjAQ5fWvPu h1epk1CzQWtuL3FeCSEaK JghNkw6AKQaFMJ2eLW1dG 3gGOHlMAahq6C6gGZ9M4L oikWlog1xp2xd IFYeHHnaW00hlRRlf5Y7D YFwtGS1LQHdzLyoOmBbqA 93Oyc+NTDpzOhxo5NoKws bw1cpn9zuvDq2 ExXrFSGasjQumFwmTNN7j 8VqCq99L55eFVsaANUrAG AiKTRzHWMrxEglic0ouN0 wIi8+PGNvbCB3 jYH8oA0rYHMvAsP4WOytD 916OjHytCCqBxxnx1mxk2 mbiNv5SjWoAJPidaOqnIl pIHG0z9PbEy97 S33dUTgnKNNlKWAvSCGoB AHtcGjvfg4cdG2jMq6+PC 3og2funn55aX70xSI+PHR yKHG6mCowJAwz IDRfwG7lLZpvEwO5FOZnJ tGtzM36vGJsFHmxGl8dzY fvmAtcIW4jBZNngoveo12 7NfGhf3tjYMLg tLPfGQyxBSB8B33wf1F4N PSsXUDdBNX0tZT8iA8bmM lnbjogbGVmdDsgdmVydGl bOVndDTnlA085 IHRvcDsnPlBhdGllbnQgT bZnFAf1F5ZgXpn9FJNbmL jeSC3lpISeUDlbNi2opCh neQkjPD3jUXCl mjwow869KfQjm3dmESDbo OZcABomTSU0Z10ey9S3HO XfNFHuWLK4dFG1jT3iwEp nbjogbGVmdDsg wuFeoDxoXCbaOSakN894Y HRvcDsnPkJpcnRoIERhdG C7HL66MQ06uYUld4F3sWW 4E1PkORUbkarl frafuHL5FGJkGLCrqN48U b2skUttUx9lGZPiDBZ1GR LpjPWeI8CgzI8rWzOjHXH tJZPoG7YfqPRe NAmnQ283CIofAuR4RYKzq cZfF4HpHAXwnGqbTzL1b4 Q9Fe0QS1Z5FX66BM88aZI ng7O4jKE3Z8Yf PYTgdsdfwaroeMW0IBBjD VQleR06Cc4lnIgvSb2uJH SvWFJ2INEmvFGsY5AwsE3 yOiAjMDAwMDAw I0ClnMUlFGqyE068MWrvQ sD3ZNCbmhTkJ8RoFMJcbR ovHyY4l8A3Lc0UEKy3FV5 0LN43fXXhk6R2 aWV4X3RsLXDjdarzgouab XX1FSNoTMDfeM74Ds9dvV uuQo5uOTHiXLF6SVWjdUD nC5RgwD8hVmZp SUQzHGCrT3VnnFLqUVxoX 215DLemXlY4HDFzizBcA7 OtABTwxBtmSrO9o6V9Tw2 VRDImUM11RGP3 oZG2DA06HF82L0JzJbdul GFibGU+PHRhYmxlIHdpZH RoPScxMDAlJyBzdHlsZT0 tKo3uNZEuFCKg kKfyqTKfBfYuc6tfIHOgM PpxQX6bkIspP9JtgEA4SE Svz6h4Ii99H77kV0BgwSA +YLBilGL2bSY0 pJ2xXnJyUvT0UVtzV616Z xVagGFeKypta5evo0dayQ p4WmI8PLWrziHwuJeuYMB 8w4AlTd73M17h IHdpZHRoPSIxNSUiIHZhb Gmimp3waT0xHm9+PGNvbC C9iEL9vH2yVjBwKbD0SDn dH201TgSdzWWo Xpboi7ssj5bcrAd2HoMxS DQrgcCamYcgHUP6n4CoMw 11W1NwbNjgm2BmGvc3iq0 7uRDro8U0nAJ1 Q3CvHUHeqcqlmTIhtFvqG H0lHSSooxffLRCdkY9sSE FhB5a3GnEySnK8FRtqH4W xpuI7STLwaRHc BAluQHL2W59eb9R3ECVwY ESpHTG7fGY4tY2hwIjjwl ogbGVmdDsgdmVydGljYWw yUIvqE015GACl yCeqVGDuoU3wMBCkxKLal AwuRI0eTCCsbbvjEdfLNg FMOYSNVHfSW7WqRKjwwAO +BAAvIRT0sExe URhbZEByrZ1bLWKxM9d5R fKuVkR3MXscY1ExPVCvpf elIn41nY0wGaNePwT2IAp jI2CzdrM9FVHo qCEjUNqrPIY3M05as2L9P WQePHAuSRZ3yTZ3qA7zcQ lnbjogbGVmdDsgdmVydGl uPWmiCUkcT329 ARGlsMaaYnF1GtQ3OyF5A Ou2U3RfNai5QLPvgDpgPW 2dsPKaEOcuGa5wgVhamEz qIC4kPJLnbzzh PICcqE3aCVFsrLNwiDxiA W3nROOfwyxdz114VtEjNX I0RWSpiVOwE5AgkX9pMtX yBIAkTJCpM5Fl iBSdVOiqC734OXzxWiW7M CZkmqVwT0ObTOQxlIriBf G4l1R0Bv3fKFPZTLEupjm vdGQ+PHRkIHN0 qZdfODfsCVNtzM3yJLWrI 3y1ScLnHnD4LXncI2JaZX RsdoyqSq06vW6lLxStYaQ 7EZdhP7UtnwV3 XBBdrXXnWYiaORL8I00qs 0R0ACErXMApJLJ2aMU9cX 1hbGlnbjogbGVmdDsgdmV ydGljYWwtYWxp S714EXSakHwhIaHdwYElS TwvdGQ+GTZyFEP4wMsbRE tpWJIizZ7fVPTlT4j9OsI oDlD4JNunU3Mj KWRzqbxkQy17eO2fXkEyO bG8EEliW5SuovB1EIJczE LsERlcXNS3F02ze2M1ZDU bCKPiQSN5hAA8 nZ4vkAdvaitijDIbvAifu yLytNavQFtkXYlgX580UH OccNdnSl10lUEayHkjuzD 0O4RjUtnldIX+ RB27FJZcTO47rGRqlQLnf 0zhhDi9FlBmHVYlNHC6zI ovHEoqk6PlOBCiC88oyCI ft1B7YNScoKim eEGxFlPqgRQ8bX2nLHuub kwsu7suryorBwcze8awyu 14sF53M33tQVpqIPAbWSU zMCUiIHZhbGln jj9jbQ2lUf2+DPUniEC3x VZ3yM5oGkLsMkO1KWhoT7 05PjJbzTBtEijfy5zqd3q njQx4QaDqVCUx shDpzVknSWT7z6VtOr98S 29sIHdpZHRoPSIyMCUiIH CfyIouyg7rqA0aOn4+PC9 sl4otwp77kI81 dHI+BDOaDCQ1vShuIOoyS MVbcB9nOKgbSbI9KGUeAs JzhI61sJBeRVvfJr4vcZx dgOgzGG3dELXj hqfga141XrZzx4fzZVIpl YCcZFxrAFR4P53rr9H4TY QxFITjSIL8vTO7kG3puPt nbjogbGVmdDsg yiUczDvmFDxxRPxeL664D ZXlhQyqLfFzyPXyN8tltq NPVI9nEanikDN+PHRkIHN 0eWxlPSdwYWRk pY6iWTBjS2p4LoLeGoR1C DhwL9PxugA4SECwuPQgBQ SbfYCFrC1uahouj4hwsfc gIzAwMDAwMDt0 HIg5DYOxxAjaExNpJGS5R mO9WXF8zKSgnT8vjFtopz fbwS2kRzf+RklOOjwvdGQ +KSSaRZB5rLwg JJoiEGFzxM9hJBAaB1r7V pPrYbW5HHccR7TmimJ1PU OalUNzWJLmpESPtN4aqhz tq6ocvqieSpHs EVWxAFf1HIb8AVYbmFymO eQaRCH2NrR1WUR4eIZxiC 0ueYospqmhpS5sJpu+TVJ OOjwvdGQ+PHRk IRD2wNktKRoxCXDjgC7tZ XLwZ2r0OuPdZwE5HCwoO7 TsajQ7BBLasXDxTQBotMP LtZ3xrksuh2ev jtrhGhViEMDbEIh6RKi5G OTqzJdpVwVbNIO0YpI9HV O5wJGxsV6toPnvabirqY7 wOyc+LEP7HBM2 GH40JA22J8ObTbdheBLnw +PHRhYmxlIHdpZHRoPS jsYBOqYzRopJifFW6xBk6 yZGVyLWNvbGxh cHNl (more content not included)... Normal [facility] CT Head or Brain w/ + [...] 300 Contrast amount in ml's: 100 Normal [facility] Consent for Treatmenton 06-03 Consent for Treatment [id number] Normal [facility] URon 04-04-2022 , QUAL Negative Normal NEGATIVE [facility] Comment on above: Performed By: #### P REGU #### [facility] [address] [place], [place] [address] Dr. Jorge Perez PAP ACOG PANEL 2: 21 to 29on 03-24-2022 . . Normal [facility] Comment on above: Performed By: #### [id number] #### [facility] [address] [place] [address] Dr. Jorge Perez DIAGNOSIS: Comment Normal [facility] Comment on above: Result Comment: NEGA TIVE FOR INTRAEPITHELIAL LESION OR MALIGNANCY. THIS SPECIMEN WAS RESCREENED PART OF OUR MORTGAGE OR LOAN UNDERWRITER PROGRAM. Performed By: #### [id number] #### [facility] [address] [place] [address] Dr. Jorge Perez Methodology: Comment Normal [facility] Comment on above: Result Comment: This liquid based ThinPrep(R) pap test was screened with the use of an image guided system. Performed By: #### 4 [id number] #### [facility] [address] [place] [address] Dr. Jorge Perez Note: Comment Normal [facility] Comment on above: Result Comment: The Pap smear is a screening test designed to aid in the detection of premalignant and malignant conditions of the uterine cervix. It is not a diagnostic procedure and should not be used as the sole means of detecting cervical cancer. Both false-positive and false-negative reports do occur. . Performed By: #### 4 [id number] #### [facility]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
--- NOTE | 2024-02-25 21:58 | ED_ITS ---
HPI - Skin/Abscess/Foreign Bdy General Chief complaint: Skin/Abscess/Foreign Body Stated complaint: LACERATION/PUNCTURE Time Seen by Provider: 02/25/24 21:36 Source: patient Mode of arrival: walk-in Limitations: no limitations History of Present Illness HPI narrative: This 28-year-old female who is right-hand dominant presents for evaluation of a laceration to the medial aspect of her left forearm. The patient states she was using a very sharp knife to cut an onion and the knife slipped and cut her on the left mid forearm. She has no numbness or tingling. She has an approximately 2 cm elliptical laceration to the skin only of the left medial forearm. There is no numbness or tingling in her hands or arms. She does not know the date of her last tetanus shot. Related Data Home Medications ?Medication ?Instructions ?Recorded ?Confirmed omeprazole 20 mg capsule,delayed 20 mg PO DAILY 09/09/23 09/09/23 release vits no.130-ferrous fum 1 tab PO DAILY 09/09/23 09/09/23 27 mg iron-folic acid 800 mcg tablet ( Vitamin) Previous Rx's ?Medication ?Instructions ?Recorded ibuprofen 800 mg tablet 800 mg PO Q8H PRN pain 14 days #40 09/12/23 tabs oxycodone-acetaminophen 5 mg-325 1 tab PO Q6H PRN pain 7 days #28 09/12/23 mg tablet (Percocet) tabs Allergies Allergy/AdvReac Type Severity Reaction Status Date / Time No Known Drug Allergies Allergy Verified 02/25/24 21:43 Review of Systems ROS Status of ROS 10 or more systems reviewed and unremark able except as noted in history and below PFSH COUNTS INCLUDE 234 BEDS AT THE [facility] Social History Smoking status: Current every day smoker Exam Narrative Exam Narrative: Vital signs and Nursing Notes reviewed: Patient is afebrile with a normal pulse, normal blood pressure, she is not hypoxic with pulse ox of 98% on room air General: Awake, alert, oriented, no acute distress, lying comfortably on the stretcher HEENT: Normocephalic atraumatic, mucous membranes are moist and pink, eyes are clear Chest: Lungs are clear to auscultation with good air entry, there is no wheezing rhonchi or rales appreciated no accessory muscle use, patient is speaking in complete sentences-no chest wall tenderness to palpation CVS: Regular rate and rhythm S1-S2, no murmurs rubs or gallops, pulses are brisk and equal bilaterally Extremities: 2 cm elliptical laceration to the medial aspect of the left mid forearm. No active bleeding noted Skin: 2 Centimeter elliptical laceration to the medial aspect of the left forearm without active bleeding. Patient is able to make a fist, distal sensation is intact. Pulses are brisk and equal Neuro: No focal deficits Constitutional Vital Signs, click to edit/add: Last Vital Signs Temp 99.3 F 02/25/24 21:39 Pulse 79 02/25/24 21:39 Resp 16 02/25/24 21:39 BP 130/78 02/25/24 21:39 Pulse Ox 98 02/25/24 21:39 O2 Del Method Room Air 02/25/24 21:39 Course Vital Signs Vital signs: Vital Signs Temperature 99.3 F 02/25/24 21:39 Pulse Rate 79 02/25/24 21:39 Respiratory Rate 16 02/25/24 21:39 Blood Pressure 130/78 02/25/24 21:39 Pulse Oximetry 98 02/25/24 21:39 Oxygen Delivery Method Room Air 02/25/24 21:39 Temperature 99.3 F 02/25/24 21:39 Pulse Rate 79 02/25/24 21:39 Respiratory Rate 16 02/25/24 21:39 Blood Pressure 130/78 02/25/24 21:39 Pulse Oximetry 98 02/25/24 21:39 Oxygen Delivery Method Room Air 02/25/24 21:39 MDM - Skin/Abscess/Foreign Bdy MDM Narrative Medical decision making narrative: Procedure note: Laceration repair left forearm. The skin was infiltrated with 1% lidocaine and the wound was irrigated with sterile saline. 6, 3-0 Ethilon sutures were placed into the wound edges with good wound edge approximation. Patient tolerated procedure well. Tetanus was updated. Bacitracin dressing was applied by the nursing staff. Wound care and suture care was explained to the patient. Discharge Plan Discharge Stand Alone Forms: Portal Instructions Chief Complaint: Skin/Abscess/Foreign Body Clinical Impression: Forearm laceration Patient Disposition: Home, Self-Care Time of Disposition Decision: 22:21 Condition: Good Prescriptions / Home Meds: No Action omeprazole 20 mg capsule,delayed release(DR/EC) 20 mg PO DAILY Vitamin 27 mg iron- 800 mcg tablet 1 tab PO DAILY ibuprofen 800 mg tablet 800 mg PO Q8H PRN (Reason: pain) 14 Days Qty: 40 0RF oxycodone-acetaminophen [Percocet] 5-325 mg tablet 1 tab PO Q6H PRN (Reason: pain) 7 Days Qty: 28 0RF Print Language: French Additional Instructions: Sutures can be removed in the next 10 to 12 days by your family physician, urgent care or return to the emergency department. Keep the laceration site covered with a clean dry dressing and apply topical antibiotic ointment once to twice a day Referrals: [facility] [Primary Care Provider] - 1 week
[2024-02-25] MEDS: ADACEL DIPH,PERTUSS(ACELL),TET VAC/PF 0.5 ML ADULT SYRINGE IM (22:06)
[2024-02-25] MEDS: BACITRACIN 0.9 GM PACKET 1 PACKET TOPICAL (22:39)
[2024-02-25] MEDS: LIDOCAINE HCL 2% 400 MG/20 ML MDV 5 ML INJ (22:39)
== END 2024-02-25 22:40 | disposition home or self-care (01) ==
PROVIDERS: Emergency Provider Emergency Medicine
DX: S51.812A Laceration without foreign body of left forearm, initial encounter (principal); Z23 Encounter for immunization; W26.0XXA Contact with knife, initial encounter; F17.200 Nicotine dependence, unspecified, uncomplicated
CPT/HCPCS: 12001; 90471; 90715; 99283

== ENCOUNTER 2024-11-09 18:22 | Emergency (ER) | payer MEDICAID, SELFPAY ==
--- OUTSIDE RECORDS SUMMARY | 2024-11-09 18:36 | XMS_ITS | CCD ---
Author Organization [facility] CliniSypa Care Team Providers Care Gmat Instructor Name Role Phone Kyle Pepe Attending Unavailable Kyle Pepe Admitting Unavailable Shannon Glez Primary Care Unavailable MD Shannon Glez Primary Care Provider MD Kyle Pepe Admit Provider [phone] MD Kyle Pepe Attending Provider [phone] FIONA GRIER Primary Care Unavailable LIZ, DR CRAVEN Admitting Unavailable LIZ, DR CRAVEN Attending Unavailable SRINIVAS, DR BRYAN Hernandez Consulting Unavailable INDIA SAGASTUME Consulting Unavailable LIZ, DR CRAVEN Consulting Unavailable DAMI CHAPIN Admitting Unavailable DAMI CHAPIN Attending Unavailable [facility] Primary Care Unavaila liz NARANJO, DR [...] ADLER Attending Unavailable SUZANNE JON Attending Unavailable MAMIE ADLER Attending Unavailable MAMIE ADLER Attending Unavailable MAMIE ADLER Attending Unavailable RONNY SAHA Attending Unavailable EMMIE, RONNY Attending Unavailable RONNY SAHA Attending Unavailable DAMI CHAPIN Referring Unavailable Unavailable Primary Care Provider Unavailabl e Medications Current Medications Medication Drug Class(es) Dates [...] prefilled syringe (1 source) Start: 06-30-2022 Fremanezumab-Vfrm (Ajovy Autoinjector) 225 mg/1.5 mL Auto-Injector Active 225 MG SUBCUT every week June 30, 2022 12:00am Xobhexqb-Kip-Yk-FA (, w/Iron & FA,) 27-0.8 MG tablet (1 source) Start: 01-01-2023 Gmodrqws-Lcl-Qk-F A (, w/Iron & FA,) 27-0.8 MG [...] 09-08-2022 Episodic Joint disorders and dislocations; trauma-related (4 sources) Unspecified internal derangement of left knee; [...] DOL and confirmed that they received it. [place] [facility] Patient wants to kno w if her C-9 for knee surgery was approved? States she hasn't heard back,. I dont see any documentation in her chart please advise. [place] Office Visiton 12-31-2023 Follow-up visit [id number] Priyanka Hardin 1995 F Date Provider Department Center 12/31/2023 RONNY AZAR MP ORTHO MPORTHO No family history on file Level of Service:61282 [place] OFFICE/OUTPATIENT ESTABLISHED MOD MDM 30 MIN () Reason for Visit and Comments: Follow-up [506000] [place] [facility]/Clini c Noteon 06-06-2023 Family [...] with voice recognition software. Occasional wrong-word or ?vtmtz-r-ikfz? substitutions may have occurred due to the [...] also states she does not know what jkrr-wpb-evllcaq medications she is able to take. She [...] May use flonase for symptomatic tx. Contact professional security officer to confirm flonase is safe usage in addition to plain robitussin. Follow up with PCP if not improving over next --- days or significantly worsening symptoms. Patient verbalized understanding of tx plan. Ordered: fluticasone nasal, 1 spray(s), Nasal, BID for 7 day(s), 16 gm, Refill(s) 0, each nostril, [facility], 159, cm, 06/06/23 11:45:00 EDT, Height/Length Dosing, 76, kg, 06/06/23 11:45:00 EDT, Weight Dosing Follow-up With When Contact Information Newton DUNCAN, Shannon Murphy [place] [address]- Additional Instructions: Patient Education Upper Respiratory Infection, Adult Problem List/Past Medical History Ongoing Acute medial meniscus tear of left knee Anxiety Chlamydia Episodic mood disorder. Lower back pain Posttraumatic stress disorder Suicide attempt Historical No qualifying data Procedure/Surgical History Dilation and curettage. Medications Flonase 0.05 mg/inh [place], 1 spray(s), Nasal, BID Allergies No Known Allergies Social History Alcohol - Low Risk, 12/09/2022 Current, 1-2 times per month, Household alcohol concerns: No., 12/09/2022 Substance Abuse - Low Risk, 12/09/2022 (more content not included)... [facility] Comment on above: Result [...] to help relieve symptoms, such as: ? Cmjr-ivm-xsatpsy cold medicines. ? Cough suppressants. Coughing is [...] other clear broths. General instructions ? Take uemq-hvn-flqvisr and prescription medicines only as told by [...] and water are not available, use hand computing architect. ? Avoid touching your mouth, face, eyes, [...] Get help (more content not included)... [facility] Follow-Upon 06-04-2023 Follow-Up [id number] HardinPriyanka 1995 F Date Provider Department Center 06/04/2023 RONNY AZAR MP ORTHO MPORTHO No family history on file Level of Service:33073 [place] OFFICE/OUTPATIENT ESTABLISHED MOD MDM 30-39 MIN () Reason for Visit and Comments: Pain [136] [facility] Office Visiton 04-24-2023 Follow-up visit [id number] Priyanka Hardin 1995 F Date Provider Department Center 04/24/2023 RONNY AZAR MP ORTHO MPORTHO No family history on file Level of Service:51922 [place] OFFICE/OUTPATIENT NEW MODERATE MDM 45-59 MINUTES Reason for Visit and Comments: Pain [136] - BWC Injury, meniscus tear injured 09/06/[address] [place] [address] - [facility] - Assessments [id number] #1.00CD:127 [facility] Coding Summary.on 01-01-2023 Coding Summary. CD:[id number] W w+PGhlYWQ+WH1ZTBLfC12 htFTyiP4iD1PWZSzCNfhd JCCPBLkDQrDvokXgNH0hq XNjZXJu IC8+RS7dMMXaTkyvuXCyf 0W2lWV2I13idq3hMZyycX K7GYMwIhMlrlsrk0wwuCm 6IDcuNmluOyBt YWLzpT45BAQ9tU80Ho66r EVveSTmx4ztqCu3XaCxDM YbPVN8jDwnKIrui6RvBGX dM80lzDOxe3O6 ZXAdbEckwXMgHaTfvZE9l Z1zCYywxlglz7htpnvsGk l3da60zMBpz1Z1lKX7V5K cedO8SSNkkBMa IcrclYTRgW8ahgpwd2xui pzgVgLxZBOgJFy0IAw4RI XzbScdKhLoPZ93PBO0GGY kkoPnX3YaVYRh cLhvMeA6b7Z3Qn7US8KAX zncA8ZAVRLCHTeoiSH+PC 36sj82K1ZbAtvfTeo6PLQ fFGC9dSR4sL8p WIEqISmhf1F7vOU5C3Gtw mJvuk9xw9frEOHgXMqvF8 2gnSAic8S2QDWpsAU6TMA ecDedXiWlzS63 Oyc+SOWqxBnub7RpQzvyb 5xiv5qmcOp5ImegYMKnti TrfYjySJO0b3ZeFr6aIWO ndAG1qIW3xQ5j UoYyCvG1BVppD621GyUtc WTxIhdfD70bV4YbsVV+PH TxEsu5TSVjvJvwOG5eV1H hZGRpbmctbGVm eJcoSM7gAQEucpltBTCvi Y5aXSVuR0t1GxPsEpR1OV ctV9HoKBHlqxobNp53hN7 iIwXsZpS4FMkp K9TsdfQ2NYPzyFTlOFowP XQ7M89bh4D2KDEgXLNnFA R4pRI3uG8xpImtctonuJW mdDsgdmVydGlj LQcuLDvbG721BZUeqCkbK kNvZGluZyBEYXRlOiAgMD UvMDEvMjAyMzwvdGQ+PHR jXLX5zKehLTOj jEWpBPimCx5yiWoluOmjA Z0hYBHshazgTIIuaB4aMP VtlAAbyBmyUS9pZEMtmgp ar088AxKxTMJ5 MYCglLOrX4SggN2sIgKjY SQjRKXxV3MmmOJbGXyrQ9 03HMpqUyA6CBHspnKeZ8D sLWFsaWduOiB0 p3M0Ke9Gu7SmhceeA7Kpt PBcXwRxUabdQLh3J3EhAk wvdHI+DM74AQXmXH89FBi 5LMW3cQnwPGyl WZJhL0OpxG3fAzIzMZCyH GRkOyc+PHRhYmxlIHdpZH RoPScxMDAlJyBzdHlsZT0 jKn6tGPEpRYSz wHktuGYyIeUvt6maJGZpF AgtKT0jnAsnY6GauQR6UC Xfq4u1Js15W09rO5XxbUQ +JAHayMT8xAA0 zX2mNpLxErF8NInmM758J yWugYLfFriis8wcp9ksqZ r3QzH6PPBvyiStiJmbAMR 1u9OpAx12G75r IHdpZHRoPSIxNSUiIHZhb Kmvtu7dfX0zTf1+PGNvbC K3nGE7lZ7eTwYwXjC5UQv cU789McZzcEEp Ldcpv3cxq9ckdOx7GmYpL ABcpiRdgOomCDI0p1EnOw 58C7AfaRstg5IoItm3uj6 3wETqu5X7kNV7 M6YjIZHajwipvORxrJiwH L0tPPPmnrlbLZMruQ0hHI SdG1f5EaBhMfL2IRrvA0S kmxV6PGYyhNVo GATsrLRCaE9yfrkqa9hjr sobAsUlEMDeCFl7QPo9EY QgfGdpDkTbINW1WiJ0WOH 9eNMkgM5lqQmd tdoxmV2vXme+SJS5bKVmu HLVJF9sSbvomCT+PHRkIH R0mHewYNqxGCRugM9xTUJ wH1v6XkKyZwB9 OKvaS1VyspS3KXTtdXBbB KAegBYIdI2qhkopi7etht dgAsNlVHHuAVo5ORy8UWR saWduOiBsZWZ0 VcR1FAY2kQHcuE4moAuuc gixwX3mHvw+QmlydGggRG F0MFn3Q5OzHac0PKFfeJm rYR1vqYRuNBlt Se8sfZlqmGsnCW2kXKIxq khac385FfHve5njKZAgiB AcAQwwZTL1Q18vx9C2SSV lXNQvIEZ4oLU9 oZ6drYtyqfsgzBNejZbko aSowIrfOBdmEDpeQ690HA GhjNquBaJoOPp0P2BoUkn 7IXFcfXlkRD7z mJXpBHvvAe1ziBvysGitH K5kNNKsofywr097RyEof4 zqDBZirUGsVPzuAJT3K15 em2B0GENqUOQc ZHZ2zQP9mJ9gwAybxfikx GVmdDsgdmVydGljYWwtYW wwP362GHEvuYvkOuFsyNh 3W9MiOhp6EBHh qWnrUD3qrFKwBCacKw3ve PoupIgaED7dPCBeawwet6 75YkIhh2znKICurGDjUMg dSEK9L77xa1T1 QKHgRRZoLXS8bLI1dD5uw GlnbjogbGVmdDsgdmVydG tsKJaqFZcrC857LVAzoJo nPlBhdGllbnQg EWqwGPj8J6PhAkxvcSL+P F21LKYbOU10yONctGEmm0 xelPl8GrGrUJZbVWQ6jVh dSByxq2BlDHSh I16pkOYug1Q7KLPfgNbjo TIeJbRzwXH8uX2hSJgmav nmt9jcbudmIjufo8bwdg3 6cW73A76cNPpl ZHRoPSIzMCUiIHZhbGlnb x5ouJ8xQt5+ZPEtjHN5cD Q9gZ3wFUYhNoT5GSyhK83 9InRvcCIvPjxj q3hid9cmnYe6RfX2SMCub eDhuMwvYZG1p9YiNr66T0 9sIHdpZHRoPSIyMCUiIHZ yfHsxbv0pwH7b Ii8+PPMwgZL2xDC0bE8hC oJjDmU6TXvcN640OvSwoM QpYlckL33oV5GfeVD+PHR jYff8CSNaaWud LX6fxYYtIOvgBd4jMSL4W jKxNdFoJPcsE1KgYMFqdv ugjquziML6ZAFfFVOyvL4 9Rj1avGokGCQl qIHByP5umzmhr0ojabmeD hRoBNRfADj0TIw9UPNnhM uhCvPuDJI0AxM0BLL5xCI gyH6cfVjqygqm yF3sF6ZaQFQekawoQg96j D3kTkCeCiJ8JGbuGln+Sk 0MNOEiUROSPEDEPAOSGK4 1SN94oXRqb6L9 uSN9P4SeTUHojapeupcyj BH8XWIuGBKdaS94jMGsND bjNw1ua2D4p890JSUwZHD nvA21Wv1irPgz IEAlbVSMnW7knyaec9mwn llzFtQwMPAcZCg2ALa6QN AyoZmyTeGmUWJ8KbF4IYD 6sRHceM3vnOjn tfsgpE1pYsn+MDcvMjcvM Ri4UfnppFO+RKRdAIH1aR mhYDagALVmjO3bBPGxA5m 0BmZcBaI4UHne B2JiIETdvqhmOu15nG9oY pUfGaT1JOimQ9BiqlB5CS KyeITvLCmuKKG6T77em4U 0AFAkTTPnKLQ0 fFF5hI3lgNwaokcecGUvk DsgdmVydGljYWwtYWxpZ2 04EYFqfAowAsJ2LVjcZQF qAG50QL56qSAr i9S6jHR8O0BkBJEyhnynr oqtuMZ8DCVrYOEkeC77mU SwSNidXv0ef4J9b126BGF fTRIssA48Xg3r oXogZVGbsNVSwQ6tywdxn 8cmrcwlXbUuVEEeXUx7BV b5XGWkkZfrRwHlZBS8IvW 8KNX6zKBxlL7j zCywmcpcjV8jUvq+RmVtY TmeQZ48IL07kSUet5H0bO S8R6BeECMmseyzdtiabUN 1NMMlVGZpiW45 uFCuDTpdRd2bb9K9l374X QKxZNFtcY14Jv6osLnrJE QcuDXMfN5tryhzt4wrjaj gIzAwMDAwMDt0 UKm7FKZhuEsuEwRuQFV5Q vX2KTH4bIUrgV2paWychg xwyP6uAex+UmVjdXJyaW5 vAR01JA39E3Mg PjwvdGFibGU+PHRhYmxlI HdpZHRoPScxMDAlJyBzdH kwUT7sMj1dRXGkWGGjsEv yoUOyIsRot4eb KDWvNYsxTI7lgPiuU8Kqm CV8NPVky2m1Rd00G65jX3 JvdXA+PCAcwOZ6jYB4sC4 mDaHdJzD5OEat I817VdIfhVLgXtnhz4skv 5mvqZe7SrEeUQEypoYtdP lhWAB7b7BlTr13O97gKOj pZHRoPSIyMCUi HHDsaFttos4jmQ3nIe2+P JQgqIQ3fCX2sI6wTyJiPo W2GBnbS652YiDmsMXrIdl bF66zI5NbtKT+ OYOrCwt7XUBztYvwGZ5gs KXhIAxvZy0xVER5LfYrDj KjIKyxO6ZfWLKekuvhbbh oqKD5LFBwXDAu wW11Mn7riZdbOd1lPMHdV LO9MPFmnEInV7SkuJ1yVt IuQYCcWPSlJ5ZdkGCyOEs gD188RPsfKqW0 XVSguaUuN7FzUVYejHzlF rF5a0T4Ck7HiIgkbYDtAR 5xOcMxQPe1G4OlWkq6OUQ yjOnmYD7bbJXq PVsrNb0eqHznhMhzMX8nG YGfukayv595TyAyn1yoSL UcuDPkDHyiPWK0V65bd6F 1SORkPGPgIGF3 kVF2hJ5rtAxbnefkdBNyn DsgdmVydGljYWwtYWxpZ2 39CQBvuLrbZyEXGet1L1B tKox3DQApkGxr PJ9cbJDzVQgdPb2mvOgcm ClxPE6bEAAlovcqc631Sk Zvd3yzXLAyqEFpLWejFRY 3P70nr6L9EIIb PNAlWKL5lIF0mY1nwIywp jogbGVmdDsgdmVydGljYW csINixN204PBApnLcgXi7 MIqe6S9HrBch0 RAUcbWsfYZ8hjRExNXqsX e2eeChxpYzsJT5pNSWadm jft259HaSrv6moCSAsgXK aZJuzGHQ1H21t d4Q9FHUeDWLaLDP3cJV3s A5uxQsqcyiwtMJwgNxbqp XjwLiwRUdpOQyzJ611DPX vcDsnPlBheWVy OjwvdGQ+TY89yo01W3NtO ayxHyw1FCOhTVK9eWG3wB 2kMTOpZDenb3M2wKM0Q8C eqoFczz9si5rv YXBzZTog (more content not included)... [facility] Consent for Treatmenton 12-03 Consent for Treatment [id number]#1 .00CD:127 [facility] [address] - Orderson 12-22-2022 ST - Orders [id number]# 1.00CD:127 [facility] ST - Otheron 12-22-2022 ST - Other [id number]# 1.00CD:[address] [facility] Family Medicine Office/Clini c Noteon 12-09-2022 [...] day(s), # 14 tab(s), Refills(s) 0, Pharmacy: [facility] 1985, 160, cm, 12/09/22 13:50:00 EDT, [...] virus vacci (more content not included)... [facility] Comment on above: Result [...] home: Medicines ? Take, use, or apply zejg-fku-ejjjogy and prescription medicines only as told by [...] and water are not available, use hand computing architect. ? Do not smoke. Avoid being around [...] or swell (more content not included)... [facility] Provider Letteron 12-09-2022 Provider Letter December 09, 2022 PRIYANKA HARDIN [address] [place] [address] PRIYANKA HARDIN 1995 To Whom It May Concern, Please excuse above patient from work. Date of Illness:12-09-2022 May Return to Work On:next scheduled work day Restrictions: _ Comments: _ Sincerely, [facility] [address] [place] [address], [place] [address] [facility] Family Medicine Office/Clini c Noteon 12-04-2022 [...] Acute pharyngitis, unspecified) Ordered: Rapid Strep POC 85194 Follow-up With When Contact Information Newton DUNCAN, [address] [place] [address]- Additional Instructions: Patient Education Antibiotic Resistance Upper [...] discomfort o (more content not included)... [facility] Comment on above: Result [...] Before and after (more content not included)... [facility] Patient Letter FTon 2022 Patient Letter [facility] [place] December 04, 2022 PRIYANKA HARDIN [address] [place] [id number] Please excuse PRIYANKA HARDIN from work . Date and/or Time of Absence: From: 12/04/22 To: 12/05/22 Restrictions: None Comments: Please excuse due to an acute illness. Provider Signature: Sunshine Mejias APRN, ANIMATION ARTIST-C Nurse Practitioner [address] [place] [address] [place] [address] [facility] CNOVon 11-13-2022 [facility] Office Visit (LOORRM ) PRIYANKA HARDIN ([id number]) 1995 F Date Time Provider Department 11/13/22 9:30 AM AUDREY MORGAN During your visit today, we recorded the following information about you: Weight Height 59 kg 1.6 m Allergies As of Date: 11/13/2022 (Not on File) Date Reviewed: 11/13/2022 Reviewed by: Monie Salmon MA - Fully Assessed Reason for Visit: New [192429] Primary Visit Diagnosis:Acute pain of left knee [M25.562] Other Visit Diagnosis:Internal derangement of left knee [M23.92] Problem List As Of Date: 11/13/2022 (None) Encounter Status:Closed by AUDREY MORGAN II on 11/14/22 [facility] XR KNEE 4V AP/PA BOTH+LAT/ME R [...] dislocation. No joint effusion. IMPRESSION: Normal radiographs. Manager Community Development[facility] Transcribe Date/Time: Nov 13 2022 9:55A Dictated by : EBENEZER HORAN MD This examination was interpreted and the report reviewed and electronically signed by: OPAL WARE MD on Nov 13 2022 9:51PM EST [id number] [facility] XR Knee - left 4 Viewson IMPRESSION: Normal radiographs. Manager Community Development: [facility] Transcribe Date/Time: Nov 13 2022 9:55A Dictated by : EBENEZER HORAN MD This examination was interpreted and the report reviewed and electronically signed by: OPAL WARE MD on Nov 13 2022 9:51PM EST DIVISION OF RADIOLOGY * * *Final Report* * * DATE [...] acute fracture or dislocation. No joint effusion. DIVISION OF RADIOLOGY Provider, [facility] - 11/13/2022 * * *Final Report* * * DATE [...] acute fracture or dislocation. No joint effusion. IMPRESSION IMPRESSION: Normal radiographs. Manager Community Development: [facility] Transcribe Date/Time: Nov 13 2022 9:55A Dictated by : EBENEZER HORAN MD This examination was interpreted and the report reviewed and electronically signed by: OPAL WARE MD on Nov 13 2022 9:51PM EST [facility] Radiology Study observation (narrative) [facility] X[facility] Knee - left 4 ViewsOrdere d By: [facility] Provider on 11-13-2022 [facility] MRI KNEE LT WO CONon 023 MRI [...] by: RONNY NARANJO Date: 2022-10-11 19:17 [facility] ED Noteon 07-12-2022 ED Note [id number]# 1.00CD:127 [facility] Comment on above: Other Comment: WRONG FOLDER Outside Recordson 07-12-2022 Outside Records [id number]# 1.00CD:127 [facility] Coding Summary.on 07-03-2022 Coding Summary. CD:[id number] G h0bWw+PGhlYWQ+TU5HMBB oV67zvDRcmN6XP2pKKP9L YYFUPDKTGA9HFZ2rhKX8V RnnC5DtfbWo AlvvxIJyIS89FMr1WOT7f GnuYVacwM7boUJcV7e1Et HvNL23sX11CAnvZDPrYqR 3LjZpbjsgbWFy T5xaHwWstJAkYoj+PHRhY mxlIHdpZHRoPScxMDAlJy ObfZnxOZ5iPu8vYFVcOFG vbGxhcHNlOiBj v0yyBTItZHtrZH4ohIwbY 4FxcGJ1UJNui5d3Hw89pY I+CYYiTXZ4kTrgOUraq46 9HzErj7nbZTM4 fKNpYEmcXMO3M77xv3C5L THbEDIcNPS0mSX3fZ2pxE fbgejqG5OcsJQiKwJ3BQR 5sOFvqM5hiCee mvcmxA7eAkw+J99VGQ1IZ JBKWX6GYkq4E0CeYotsfE I+UQ92ZZIyZA94oMScbAL qf6cjcUy6TeDm UISyYHV0pBmmCJzef0SfJ PFdT72hjVLfa8S4WTCtaG eyaCAjVyXysPK0mO1aNCq krlozg4elmqzb Qcmhc2jepi58tU00N42eC UcbWKCzPCP4KDVhGNJjlF xyxu0psQ8rQt5+QEznv0z mq1ezyUa7TlEm OYWwrhVpuNllNEA2q1HxD v80J7DivUrbb8FmOvc0ke 58fWFpw6E2yEA2XMqlNGR jqZ8wFElsWrI4 NTNfTgJdpN95eKOwSMhmC m1lxQdzmRzpFA6uPVJfik ciIRAqvL1mDIIvoMTbwOt sZT8pSDSfvvzh q640ZiWtJRE1NRJhkGXjT 3GenO1aPnHjETYmPREvD8 OnpGDqKZvwA748SWtsSsD 2ORQtuxZgQ2Zw PLNkzNjtAhL1s9T8Ik8Uw 8ScptufZOU5AVdkDAUrMo UvSiJaSjU2Q1OgJpz8TJR nnCneGE2cA3Oo VSVbvrrjywalmBF7NQMiF KDytB26oQMoDEymVi2ll0 N0o151JLQgECNumT22Yo9 udDogMTBwdCBU zF1nmgnsw2zyhyejTqSkP ZWmRLa2JDq7OTPgkYmwGf PxCGS4LtV1NOO5aFSnxP5 hmLoyswwbiY6f Oyc+F37yhG3tZVN4UFD4x xstSUDrpjWzID45GF86E0 RyPjwvdGFibGU+PGRpdiB nlHovWF1oGsXs s4ajx7PsIIrfD5UpVGEtP AbvOmh1GWLfCLY0zAK7rQ 6bLRWwONdqf1M2kHZ0X0K hvwHcvq1ii5vf DTViLUbsX45knYBnv6W0Q NZseIZ2BUGsnZwzSnUhyD 93Oyc+FKNjtBalo9JyMze tj8art3zorOl3 KmVyYUYvquRyoFdfABQ6j 6OjUs51K82cZMcgBYFpJQ JjNJAkDIYhcWacwe7coQ2 wIi8+PGNvbCB3 gGE5xA8jKIVaHpJ8RBnmQ 892XlAekYSvWzlrf7yck9 oiiPk8AjWjSPIcopAdwRc yILD5w7ZpZt92 P59dFOtyYJDpYBLwWFNgN MVguQhcin2wpK9wCj6+PC 8xv8lunk65kM44aMC+PHR zHTZ4xSmmQXqm UZCkuX4pHYhbOoT2PMPvJ jIcuF55qYEkEZuoOr0lyG pjjEnoFD1iMXQybjnim01 1MrFkh4pkNZFu vRKpXCflOKU4X27ss6J0W CBrLMUmQWB4bXF3qS9lsF lnbjogbGVmdDsgdmVydGl rTWfwKDlxA590 IHRvcDsnPlBhdGllbnQgT aPrOGx1A9JoGut8PJOcvU xyZK4koREqTUpsKe0tlZo dwXipTU6wKGTh hhqtr427JfOfu5gcYPWja IRvAWnkXEV7S65az2V0YP QvQMBkKFB2yDZ3pW7scTx nbjogbGVmdDsg aeIlmAkyFVcjTMrsA336Q HRvcDsnPkJpcnRoIERhdG A1EF78EK16qECin6G6qHO 5F5FqQWJwtfmo fbrlyTM0LZTzVFLyfM35G h1xuLgdPu9qIEZzLDT9MQ RxaNSwE0JzcN5lRjDjJFA lWYJsB7QfmCXd TPhdU304IIzmXrR8AXYsb rBeX3CjFAMujSryIsG5r4 D0Js9LE6N7MU71PV17oUB jb7Y5gCY8N9Qs DAWjezbtuaopzRL8TOMeU PFzoA51Mz5rbOknNl6vJT FnSHG7NKCyeBFmK0IhcX6 yOiAjMDAwMDAw I5TwfPTeGErxK519MGmlE qG9NGHuavKfG3CmMVJkoX fdXzK0k3P0Qt6FVAe9RR8 3UC73zJMgf0F7 tIT3S9DaRKJpwpwbstdvx WP6RWHmVNCqhQ13By4xgR fiXs6bDGRlAMR9YOKzlTC kG6XauE6oPyAg YUZwDTDpF2DdoZQkEOexU 233VXgvPlS4TZOwonHnO3 UjMABukUkfQbT9z5T4Or3 PALWrZL15WRG0 dQJ5AA26VK37T8JmWwzgy GFibGU+PHRhYmxlIHdpZH RoPScxMDAlJyBzdHlsZT0 vKd5lSABeOARb iLaxxFXoPqJoe2xcAFPcS KcuOX1aeEzqA8AvaTZ8TP Sci0r2Of35L74lK7ObmWZ +QNSdzYA7mHO7 iQ8oVeYiZlV7JWshH381N kEizYVvPkail9zbb5uidH o4MkX0EQSjrhDjlUpuKQR 9e6TbCt93Z44d IHdpZHRoPSIxNSUiIHZhb Adjcj2gdY9tRy0+PGNvbC R9fQN4zU4kGeRbLpJ6JPm tP085TwGpzGIp Qneis1yhs3jsqJu8UjUgV ELnruVgiDkxOJL1t2MnOk 94A5MtsVdle6HdTii5xg1 1vPYqy5C3tZM6 B6BhNZRkymgdyRMchVstQ N4mPDPauixpFKLpqR3rTZ YpL2q4NpRaSfG4MQcwH0Y bsvE7UKTmjTJn HSpuCOD9X55yl3U8RUJqY DQgEFJ4vMS6rB1hrBhoep ogbGVmdDsgdmVydGljYWw lVOzpO530ZMPn sCnaIIJfcI9jVIDcnNOse CffRW9hWIJxtrszSljSTl ZBHHQRRQyVR0HvHLykkOM +VWZkXVY8jSed XXhiUYKxjC1fVARaO2m4D ySaEeC0TGzgS3GrUMOisz thTb37gS6qXeLhUcF2RQe sE5TlhgS2SYUo jLXeJBlfQAQ5D07yv6Q2A CHpIWVdARI9hTH3jO1wnU lnbjogbGVmdDsgdmVydGl qOSyfTOyzD251 UAKxuVrvJvG9OfR1QoJ0K Ao6S3JvTdd5UDEopYcqNR 2jiPWlTYrlMf6bhZepfTi gOZ9cOBJsdnsn HXWvmN7mOECgyUPpxOjcM L6tJUMdkxnda556VbPzXU Q8RHKhpRCcU2BzzU7vYyK zSNMkAKFuP2Ly oGYaNBdxB833FOglLxL9G RVuqcPqC6UpGFFznPifSc U3e7D0Xx6jFRZZIEYnbai vdGQ+PHRkIHN0 jVkhOSucLQEpfU2bHERyI 9h6JtGkQiX7HAqeT6OoVA RqwwbbIc85nF4kSoTeSpU 5LGrkM9ZvkfK5 IFGajRGyYGkuLMS3V91ay 8V3WQQgKKEeRLT9nQE0aJ 1hbGlnbjogbGVmdDsgdmV ydGljYWwtYWxp C440TQVceZusVzRhoNIgA TwvdGQ+MEArQVU5eVhwFZ jqFHHgmP3dCYAbS1x4KsV iZdS6GZvvL1Fx ZTAhccrfZu55nX5vDmQpJ eW5EOyhV9GxvuT7FYEioT YuERxlHKK5E47pn5V0SVR vWVMxFVJ3jZH5 wV9kpLdqtpbzvXFrmVjtf kJbgFbvDLmvDOwjT491FW WfnOdjMyDpGPKkRG5zbTz vdGQ+SH37oj84 F9TyWgbzQay3EWClKVC1g XY9iO3aIXGcRNblu0G0fM P6L7UebjSjej3dh2roBBC cHSdbQ17rkSLw m6D3HCSeoNB8ZFQyvWlyV gKawE59Rts+PGNvbGdyb3 ZjLqvkv3mry5kvvUk0MhE wJSIgdmFsaWdu SUM7v6JoCr05I48aKPfoZ HRoPSIzMCUiIHZhbGlnbj 2kuK7tGv2+JCHdeDG6aYX 2lZ2gCnXgXyV3 CYvkY777QhEndPQwXfljj 9vse6icuOo5LsCvHCPcdg UugQbjTXK0l1ObOi47E7U kbZdbi3JgHrq3 sf85gIRhn7L0wYZ1R1WgW MPfywrgiFUowSjcBO1fBX MoitkzPFCluA4rVXPmH6k 1DmFjUeK6PJji J3CdvsM2DDJvaFYkGNLkg IVSdT1rkkgdl2gpdmpuEn DkMNUrSNp8LMd3XKNgbVv xKtYqDNX8IvD9 UVC8dNHmzB3ubAzmxkgvf G9wOyc+UAl3q7mnrKSxHL 8npPN8HZ62ZL79tMZtr5Y 9kGP9N0EnTLBu ohyzzfwblKV3CBWfMOVhd T74Se6tvKhmQn1xYYAfRS P5NVAloNGiK8WzfU3bZkP aPNKkFPVmX6Sn nXNrJHpeE872KJqkPwB6C HEqxaXaJ7LmGBFgrNecAz Z5f2T8Bi3PAT32AN43MS1 8hQIhe8W4rJX3 N4CsXEYyvkdoxsufzAF5M XVkZLCmxN98Qf1dyFyvAm 7sFCDpXKU4NUXjtQTfS1W coB6xNxPzKNNp YXDpG6YsyJYzOZimT088H VbqKtW0LIRsvgMwR2SaCZ ZrhEdvIwT3r2C6Dn5YXl8 4RA70BV46gFYz q6G2kPP7U8PrMECzqxqow yrxvKD9AGRtJIXirE56Jq 3uiRscPj6sJGJlUBW6CIO kgGPbZ7IfmX6x LrLoHPZfJKBaS4JdnOZwX PntD007QBtxNoB1CPTkpl ZbJ3HbQRUrlHnbCpX1l8I 1Eb5SZYwpdlk5 C1LuSlciuME+YF51RJNuV W75tZFauJKmn1idvMd5Sk AaFKOxHEW4fZnpTGgls1E qYGShS02xoQRx c2U6 (more content not included)... [facility] Cholesterol [Mass/volume] in Serum or PlasmaOrdered By: Kyle Pepe on 06-30-2022 Cholesterol [Mass/Vol] 135 mg/dL 140-200 [facility] Comment on above: Chol less than 200 m g/dl low riskChol 201-239 mg/dl borderline riskChol 240 mg/dl and greater high risk Cholesterol in LDL Calc [Mas s/Vol]Ordered By: Kyle Pepe on 06-30-2022 Cholesterol in LDL [Mass/Vol] 66 mg/dL 0-100 [facility] Comment on above: LDL ATP III CLASSIFI CATIONLDL less than 100 mg/dL OptimalLDL 100-129 mg/dL Near or above optimalLDL 130-159 mg/dL Borderline highLDL 160-189 mg/dL HighLDL greater than 189 mg/dL Very high Cholesterol in VLDL Calc [Ma ss/Vol]Ordered By: Kyle Pepe on 06-30-2022 Cholesterol in VLDL [Mass/Vol] 4 mg/dL [facility] ED Clinical Summaryon 2021 ED Clinical Summary [place] [id number] ED Clinical Summary Person Information Name: [facility] Age[facility] 27 [facility] : 1995 Sex: Female Language: Maltese PCP: Shannon Glez MD Marital Status: Single [...] 06/29/2022 23:43:15 06/29/2022 23:43:15 06/29/2022 23:43:15 ADDRESS: [address] [place] [id number] PHYS DOC NOTES: MEDICAL INFORMATION: Prescriptions Given: Medications to Continue with No Changes Other Medications diphenhydrAMINE (Benadryl 25 mg Cap) 1-2 cap(s) By Mouth 3 times a day as needed as needed for itching. Refills: 0. famotidine (Pepcid 20 mg Tab) 1 Tablets By Mouth 2 times a day. Refills: 0. PATIENT EDUCATION INFORMATION: Instructions: Follow up: DIAGNOSIS: 1:Suicidal ideation [facility] ED Patient Education Noteon 06-30-2022 ED Patient Education Note [facility] ED Patient Summaryon 022 ED Patient Summary [address] [address] Patient Discharge Instructions Person Information Name: PRIYANKA HARDIN Age: 27 Years Arrival Date: 06/29/2022 17:33:15 Discharge Diagnosis: 1:Suicidal ideation Primary Care Physician: Shannon Glez MD Provider Information Primary Provider: Sai Vasquez DO Advanced Editor:Arnoldo Wellington PA-C The exam and treatment you received in the Emergency Department were for an urgent problem and are not intended as complete care. It is important that you follow up with a doctor, nurse practitioner, or physician?s geriatric nursing assistant for ongoing care. If your symptoms become worse or you do not improve as expected and you are unable to reach your usual health care provider, you should return to the Emergency Department. We are available 24 hours a day. WILFRED PRIYANKA M has been given the following list of [...] opioids can be used to help relieve exouwyxg-yc-kllidw pain and are often prescribed following a [...] be struggling with addiction, tell your health day care teacher and ask for guidance or call [facility] National Helpline at 1-343-184-ZWRJ. e Source: [place] Department of Health and Human Services/Center for Disease Control & Prevention [facility] Medications Given: Medication Dose Rou (more content not included)... [facility] EMS Documentationon 06-30-20 EMS Documentation [id number] [email or web address] [facility] Lipid Panelon 06-30-2022 Cholesterol [Mass/Vol] 135 mg/dL Low 140-200 [facility] Comment on above: Result Comment: Chol less than 200 mg/dl low risk Chol 201-239 mg/dl borderline risk Chol 240 mg/dl and greater high risk Performed By: #### T SH3 wRFLX, [id number], LIPID #### [address] Cholesterol in HDL [Mass/Vol] 65 mg/dL Normal 35-85 [facility] Comment on above: Result Comment: HDL CHOL ATP-III CLASSIFICATION Cardiovascular Risk HDL > or equal to 60 mg/dL LOW HDL < 40 mg/dL HIGH Performed By: #### T SH3 wRFLX, [id number], LIPID #### [facility] [facility] [address] [place] [address] [place] Cholesterol.total/Choles terol in HDL [Mass ratio] 2.1 {ratio} Normal <5.0 [facility] Comment on above: Performed By: #### T SH3 wRFLX, [id number], LIPID #### [facility] [address] LDL Cholesterol,Calculated 66 mg/dL Normal 0-100 [facility] Comment on above: Result Comment: LDL ATP III CLASSIFICATION LDL less than 100 mg/dL Optimal LDL 100-129 mg/dL Near or above optimal LDL 130-159 mg/dL Borderline high LDL 160-189 mg/dL High LDL greater than 189 mg/dL Very high Performed By: #### T SH3 wRFLX, [id number], LIPID #### [facility] [address] [place] [address] [facility] Triglyceride w/Reflex 20 mg/dL Low 35-149 [facility] Comment on above: Result Comment: TRIG ATP III CLASSIFICATION TRIG less than 150 mg/dL Normal TRIG 150-199 mg/dL Borderline high TRIG 200-500 mg/dL High TRIG greater than 500 mg/dL Very high Standard traceable to the Center for Disease Conrtrol and Prevention (CDC) test method. Performed By: #### T SH3 wRFLX, [id number], LIPID #### [facility] [address] [place] [address] [place] VLDL CHOLESTEROL 4 mg/dL Normal [facility] Comment on above: Performed By: #### T SH3 wRFLX, [id number], LIPID #### [facility] [address] [place] [address] [facility] No Panel InformationOrdered By: Kyle Pepe on 06-30-2022 25-Hydroxy Vitamin D Total 22.3 ng/mL 30-100 [facility] Comment on above: VITAMIN D STATUS [...] Cholesterol in HDL [Mass/Vol] 65 mg/dL 35-85 [facility] Comment on above: HDL CHOL ATP-III CLA SSIFICATION Cardiovascular RiskHDL > or equal to 60 mg/dL LOWHDL < 40 mg/dL HIGH Serum or plasma total choles terol/high density lipoprotein (HDL) cholesterol mass ratOrdered By: Kyle Pepe on 06-30-2022 Cholesterol.total/Choles terol in HDL [Mass ratio] 2.1 {ratio} <5.0 [facility] TSH DL <= 0.005 mIU/L QnOrde red By: Kyle Pepe on 06-30-2022 TSH Qn 1.66 m[IU]/L 0.45-5.33 [facility] Thyroid Stim Hormone w/Rflxo n 06-30-2022 Thyroid Stim Hormone w/Rflx 1.66 u[iU]/mL Normal 0.45-5.33 [facility] Comment on above: Performed By: #### T SH3 wRFLX, [id number], LIPID #### [facility] [address] [place] [address] Transfer Documentson 022 Transfer Documents [id number]# 1.00CD:127 Normal [facility] Triglyceride [Mass/volume] i n Serum or PlasmaOrdered By: Kyle Pepe on 06-30-2022 Triglyceride [Mass/Vol] 20 mg/dL 35-149 [facility] Comment on above: TRIG ATP III CLASSIF ICATIONTRIG less than 150 mg/dL NormalTRIG 150-199 mg/dL Borderline highTRIG 200-500 mg/dL High TRIG greater than 500 mg/dL Very highStandard traceable to the Center for Disease Conrtrol and Prevention (CDC) test method. Valuables Checkliston 2021 Valuables Checklist [id number]# 1.00CD:127 Normal [facility] Vitamin D 25 Hydroxy Totalon 06-30-2022 Vitamin D 25 Hydroxy Total 22.3 ng/mL Low 30-100 [facility] Comment on above: Result Comment: NOEMÍ MIN D STATUS 25(OH)VITAMIN D RANGE (ng/mL) Deficient <20 Insufficient 20 to <30 Sufficient 30 to 100 Reference: Constantino MF,Claudio NC, Martin IBRAHIM, et al. Evaluation,treatment, and prevention of vitamin D deficiency; an Endocrine Society clinical practice guideline. JCEM. 2010; 96(7):1911-30. PERFORMED BY: [place] [address] PATHOLOGIST IRRADIATED [employer]UEL HANDLER JUNIE ARMENDARIZ M.D. Performed By: #### T SH3 wRFLX, [id number], LIPID #### [facility] [address] Acetamnphn Lvlon 06-29-2022 Acetaminophen [Mass/Vol] ug/mL Low 15-30 [facility] Comment on above: Performed By: #### 2 996178, 0326047, 2969440, 28044522, 9091257, 6649633 ####[facility] [address] [place] [address] Auto Diffon 06-29-2022 Basophils/100 WBC (Bld) 0.6 % Normal 0.0-2.0 [facility] Comment on above: Order Comment: Order Added by Discern Expert. Performed By: #### 2 815879, 7186174, 2453338, 29241938, 4822139, 4955901 ####[facility] [address] [place] [address] Basophils/Leukocytes Auto (Bld) [Pure # fraction] 0.1 E9/L Normal 0.0-0.2 [facility] Comment on above: Order Comment: Order Added by Discern Expert. Performed By: #### 2 345286, 5997459, 8886259, 16980017, 7370495, 7487498 ####[facility] [address] [place] [address] Eosinophils/100 WBC (Bld) 2.9 % Normal 0.0-8.0 [facility] Comment on above: Order Comment: Order Added by Discern Expert. Performed By: #### 2 411302, 0928835, 8827426, 67706752, 3179281, 7965525 ####[address] [place] [address] Eosinophils/Leukocytes Auto (Bld) [Pure # fraction] 0.3 E9/L Normal 0.0-0.5 [facility] Comment on above: Order Comment: Order Added by Jey Expert. Performed By: #### 2 835300, 2454839, 4218762, 42533898, 4446454, 6028004 ####[address] [place] [address] Lymphocytes/100 WBC (Bld) 24.2 % Normal 14.0-50.0 [facility] Comment on above: Order Comment: Order Added by Jey Expert. Performed By: #### 2 874839, 8386323, 3778829, 17301074, 8462006, 9442387 ####[address] [place] [address] Lymphocytes/Leukocytes Auto (Bld) [Pure # fraction] 2.3 E9/L Normal 1.0-4.0 [facility] Comment on above: Order Comment: Order Added by Jey Expert. Performed By: #### 2 644411, 6444911, 4430599, 07972677, 4016887, 2665824 ####[facility] [address] [place] [address] Monocytes/100 WBC (Bld) 6.5 % Normal 4.0-14.0 [facility] Comment on above: Order Comment: Order Added by Jey Expert. Performed By: #### 2 534215, 8209238, 2581541, 58351864, 5702699, 1285835 ####[address] [place] [address] Monocytes/Leukocytes Auto (Bld) [Pure # fraction] 0.6 E9/L Normal 0.2-1.0 [facility] Comment on above: Order Comment: Order Added by Discern Expert. Performed By: #### 2 866416, 0433492, 6864308, 27240832, 2792505, 6091997 ####[address] [place] [address] Neutrophils/100 WBC (Bld) 65.8 % Normal 36.0-75.0 [facility] Comment on above: Order Comment: Order Added by Discern Expert. Performed By: #### 2 731688, 0805203, 7445066, 38701102, 4009741, 5180846 ####[address] [address] Neutrophils/Leukocytes Auto (Bld) [Pure # fraction] 6.4 E9/L Normal 2.0-7.5 [facility] Comment on above: Order Comment: Order Added by Discern Expert. Performed By: #### 2 665754, 1393712, 3046798, 48158781, 3825603, 0787107 ####[address] [place] [address] CBC w/ Auto Diffon Erythrocyte distribution width (RBC) [Ratio] 11.9 % Normal 10.9-14.2 [facility] Comment on above: Performed By: #### 2 012764, 3435030, 7450418, 01034282, 2196847, 8684631 ####[address] [place] [address] Hematocrit (Bld) [Volume fraction] 37.9 % Normal 34.0-46.0 [facility] Comment on above: Performed By: #### 2 008279, 4009083, 9700268, 83290680, 3263439, 0679481 ####[facility] [address] [place] [address] Hemoglobin (Bld) [Mass/Vol] 13.2 g/dL Normal 12.0-16.0 [facility] Comment on above: Performed By: #### 2 146370, 0399367, 7715875, 40497640, 7247805, 1335173 ####[facility] [address] [place] [address] MCH (RBC) [Entitic mass] 30.8 pg Normal 27.0-34.0 [facility] Comment on above: Performed By: #### 2 198937, 9710113, 2686353, 96436502, 4166161, 0694966 ####[address] [address] MCHC (RBC) [Mass/Vol] 34.8 g/dL Normal 31.4-36.0 [facility] Comment on above: Performed By: #### 2 839803, 4149112, 4997580, 58012736, 6477925, 2419976 ####[address] [address] MCV (RBC) [Entitic vol] 88.4 fL Normal 80.0-100.0 [facility] Comment on above: Performed By: #### 2 367529, 2378877, 3463908, 24910257, 9084699, 1689688 ####[address] [address] Platelet mean volume (Bld) [Entitic vol] 8.7 fL Normal 6.4-10.8 [facility] Comment on above: Performed By: #### 2 618037, 3042039, 1638171, 88507247, 9418859, 0346976 ####[address] [place] [address] Platelets (Bld) [#/Vol] 256.0 E9/L Normal 150.0-500.0 [facility] Comment on above: Performed By: #### 2 934162, 6101192, 4790772, 53141654, 2769147, 2986796 ####[address] [place] [address] RBC (Bld) [#/Vol] 4.3 E12/L Normal 4.3-5.9 [facility] Comment on above: Performed By: #### 2 306079, 4416392, 2086821, 52437188, 9973125, 9658314 ####[address] [place] [address] WBC corrected for nucl RBC Auto (Bld) [#/Vol] 9.7 E9/L Normal 4.0-11.0 [facility] Comment on above: Performed By: #### 2 085586, 2253383, 4912390, 29355998, 3755506, 3346007 ####[address] [place] [address] CMPon 06-29-2022 Albumin [Mass/Vol] 4.7 g/dL Normal 3.3-5.0 [facility] Comment on above: Performed By: #### 2 797817, 1769033, 0738616, 55238881, 7950953, 6915821 ####[address] [place] [address] Albumin/Globulin (S) [Mass conc ratio] 1.3 Normal 1.1-2.2 [facility] Comment on above: Performed By: #### 2 733115, 5320083, 6598711, 46551051, 6555037, 7137956 ####[address] [place] [address] ALP [Catalytic activity/Vol] 59 Int._Unit/L Normal 21-98 [facility] Comment on above: Performed By: #### 2 315349, 8557145, 1624014, 79781354, 4802363, 4046779 ####[facility] [address] [place] [address] ALT No additional P-5'-P [Catalytic activity/Vol] 17 Int._Unit/L Normal 6-46 [facility] Comment on above: Performed By: #### 2 968948, 3296022, 4298893, 88746158, 6598233, 2949605 ####[facility] [address] [place] [address] AST [Catalytic activity/Vol] 20 Int._Unit/L Normal 5-43 [facility] Comment on above: Performed By: #### 2 418985, 8304747, 0621364, 02106504, 2488131, 5237126 ####[facility] [address] [place] [address] Bilirubin [Mass/Vol] 1.1 mg/dL Normal 0.0-1.1 [facility] Comment on above: Performed By: #### 2 494007, 6980136, 8735543, 75763179, 8562225, 2457941 ####[facility] [address] [place] [address] Creatinine [Mass/Vol] 0.7 mg/dL Normal 0.5-1.3 [facility] Comment on above: Performed By: #### 2 561965, 8215458, 4593126, 28376833, 1566553, 1995219 ####[facility] [address] [place] [address] Globulin (S) [Mass/Vol] 3.6 g/dL Normal 1.4-4.0 [facility] Comment on above: Performed By: #### 2 576553, 2451686, 5503573, 32384247, 3227519, 4124639 ####[facility] [address] [place] [address] Protein [Mass/Vol] 8.3 g/dL High 6.0-7.8 [facility] Comment on above: Performed By: #### 2 537176, 3230481, 6927391, 28715627, 0164127, 1048610 ####[facility] [address] [place] [address] Urea nitrogen [Mass/Vol] 9 mg/dL Normal 5-21 [facility] Comment on above: Performed By: #### 2 322817, 1655502, 0646906, 87885310, 9069459, 2630937 ####[facility] [address] [place] [address] Urea nitrogen/Creatinine [Mass ratio] 13 No Units Normal 10-20 [facility] Comment on above: Performed By: #### 2 948847, 8167293, 0502639, 32070777, 2802783, 5118039 ####[facility] [address] [place] [address] Anion gap [Moles/Vol] 14 mmol/L Normal 6-16 [facility] Comment on above: Performed By: #### 2 042378, 5661278, 2453622, 19613079, 0319162, 7212836 ####[facility] [address] [place] [address] Calcium [Mass/Vol] 9.9 mg/dL Normal 8.9-11.1 [facility] Comment on above: Performed By: #### 2 456150, 0178401, 8191855, 94625697, 4946179, 6113482 ####[facility] [address] [place] [address] Chloride [Moles/Vol] 102 mmol/L Normal 101-111 [facility] Comment on above: Performed By: #### 2 703545, 1771009, 9599276, 85481579, 8867791, 4053014 ####[facility] [address] [place] [address] CO2 [Moles/Vol] 24 mmol/L Normal 21-31 [facility] Comment on above: Performed By: #### 2 377321, 9053834, 7501308, 34898492, 8097607, 2335874 ####[facility] [address] [place] [address] Glucose [Mass/Vol] 103 mg/dL Normal 55-199 [facility] Comment on above: Result Comment: If t his glucose result represents a fasting glucose, interpretation should refer to the following reference range: 55-99 mg/dL Performed By: #### 2 705904, 9355934, 3546262, 62552062, 5353933, 4912679 ####[facility] [address] [place] [address] Potassium [Moles/Vol] 4.1 mmol/L Normal 3.5-5.3 [facility] Comment on above: Performed By: #### 2 351095, 7071675, 2066019, 09027061, 3525829, 1863722 ####[facility] [address] [place] [address] Sodium [Moles/Vol] 136 mmol/L Normal 135-145 [facility] Comment on above: Performed By: #### 2 827520, 0796237, 0425200, 60692783, 9263784, 4039367 ####[facility] [address] [place] [address] Consent for Treatmenton 06-04 Consent for Treatment [id number] [facility] [id number]#1 .00CD:127 Normal [facility] ED Note-Physicianon 06-29-20 ED Note-Physician Basic Information Time Seen: Arnoldo Wellington PA-C 06/29/2022 17:39 Chief Complaint pt arrives via [facility] for suicidal ideations. pt states she took [...] follow-up and disposition. Patient was evaluated by P. She was accepted for placement at [facility] by Dr. Pepe. Assessment/Plan 1. Suicidal [...] Aunt. Lab Results WBC: 9.7 E9/L (06/29/22 18::00) RBC: 4.3 E12/L (06/29/22 18:01:00) HGB: 13.2 gm/dL (06/29/22 18:01:00) Hct: 37.9 % (06/29/22::00) MCV: 88.4 fL (06/29/22::00) MCH: 30.8 pg (06/29/22::00) MCHC: 34.8 gm/dL (06/29/22::00) RDW: 11.9 % (06/29/22::00) Platelet: 256 E9/L (06/29/22::00) MPV: 8.7 fL (06/29/22::00) Neutro Auto: 65.8 % (06/29/22::00) Lymph Auto: 24.2 % (06/29/22::00) Sauk Auto: 6.5 % (06/29/22::00) Eos Auto: 2.9 % (06/29/22::00) Basophil Auto: 0.6 % (06/29/22::00) Neutro Absolute: 6.4 E9/L (06/29/22::00) Lymph Absolute: 2.3 E9/L (06/29/22::00) Sauk Absolute: 0.6 E9/L (06/29/22:01:00) Eos Absolute: 0.3 E9/L (06/29/22:01:00) Basophil Absolute: 0.1 E9/L (06/29/22::00) Glucose Lvl: 103 mg/dL (06/29/22 18:01:00) BUN: 9 mg/dL (06/29/22:01:00) Creatinine: 0.7 mg/dL (06/29/22:01:00) eGFR: >60 (06/29/22:01:00) eGFR AA: >60 (06/29/22 18:01:00) BUN/Creat Ratio: 13 (06/29/22 18:01:00) Sodium Lvl: 136 mmol/L (06/29/22 18:01:00) Potassium Lvl: 4.1 mmol/L (06/29/22 18:01:00) Chloride: 102 mmol/L (06/29/22 18:01:00) CO2: 24 mmol/L (06/29/22 18:01:00) AGAP: 14 mEq/L (06/29/22 18:01:00) Calcium Lvl: 9.9 mg/dL (06/29/22 18:01:00) Alk Phos: 59 Int._Unit/L (06/29/22 18:01:00) ALT: 17 Int._Unit/L (06/29/22 18:01:00) AST: 20 Int._Unit/L (06/29/22 18:01:00) Total Protein: 8.3 gm/dL High (06/29/22 18:01:00) Albumin Lvl: 4.7 gm/dL (06/29/22 18:01:00) Globulin: 3.6 gm/dL (06/29/22 18:01:00) A/G Ratio: 1.3 (06/29/22 18:01:00) Bili Total: 1.1 mg/dL (06/29/22 18:01:00) Acetaminoph Lvl: <10 Low (10 (more content not included)... Normal [facility] Comment on above: Result Comment: Elec tronically Signed By: Arnoldo Wellington PA-C\.br\Date and Time Signed: 06/29/22 18:19 EDT\.br\Electronically Co-Signed By: Lili Hollis DO\.br\Date and Time Co-Signed: 06/29/22 20:35 EDT\.br\Electronically Co-Signed By: Sai Vasquez DO\.br\Date and Time Co-Signed: 06/30/22 19:05 EDT Ethanolon 06-29-2022 Ethanol [Mass/Vol] mg/dL Normal <=7 [facility] Comment on above: Performed By: #### 2 316757 ####[facility] [address] [place] [address] Rapid COVID Antigen ([facility])on 06-29-2022 Rapid COV Int NEG Ctl Pass Normal [facility] Comment on above: Performed By: #### 2 [id number] ####[facility] [address] [place] [address] Rapid COV Int POS Ctl Pass Normal [facility] Comment on above: Performed By: #### 2 [id number] ####[facility] [address] [place] [address] SARS-CoV+SARS-CoV-2 (COVID-19) Ag IA.rapid Ql (Resp) Not detected Normal Not Detected [facility] Comment on above: Result Comment: The Qoture System for Rapid Detection of SARS-CoV-2 is [...] or revoked sooner. Performed By: #### 2 [id number] ####[place] [address] ADMITTED TO INTENSIVE CARE UNIT FOR CONDITION OF INTEREST:FIND:PT: NO Normal [facility] Comment on above: Performed By: #### 2 [id number] ####[place] [address] EMPLOYED IN A HEALTHCARE SETTING:FIND:PT: NO Normal [facility] Comment on above: Performed By: #### 2 [id number] ####[place] [address] FIRST TEST FOR CONDITION OF INTEREST:FIND:PT: YES Normal [facility] Comment on above: Performed By: #### 2 [id number] ####[place] [address] HAS SYMPTOMS RELATED TO CONDITION OF INTEREST:FIND:PT: NO Normal [facility] Comment on above: Performed By: #### 2 [id number] ####[place] [address] HOSPITALIZED FOR CONDITION OF INTEREST:FIND:PT: NO Normal [facility] Comment on above: Performed By: #### 2 [id number] ####[place] [address] STATUS:FIND:PT: NO Normal [facility] Comment on above: Performed By: #### 2 [id number] ####[place] [address] RESIDES IN A CONGREGATE CARE SETTING:FIND:PT: NO Normal [facility] Comment on above: Performed By: #### 2 [id number] ####[facility] [address] [place] [address] Salicylateon 06-29-2022 Salicylates [Mass/Vol] mg/dL Low 6-29 [facility] Comment on above: Performed By: #### 2 294118, 4452089, 8095701, 23663454, 9367784, 4081265 ####[facility] [address] [place] [address] U BetaHcg Qualon 06-29-2022 HCG.beta subunit (U) [Moles/Vol] Negative Normal [facility] Comment on above: Performed By: #### 2 5693501 ####[facility] [address] [place] [address] U Drug Screenon 06-29-2022 Amphetamines Screen method >1000 ng/mL Ql (U) Negative Normal Negative [facility] Comment on above: Result Comment: Nega tive Cutoff: <1000 ng/mL Performed By: #### 2 656332 ####[facility] [address] [place] [address] Barbiturates Screen Ql (U) Negative Normal Negative [facility] Comment on above: Result Comment: Nega tive Cutoff: <200 ng/mL Performed By: #### 2 589924 ####[facility] [address] [place] [address] Benzodiazepines Ql (U) Negative Normal Negative [facility] Comment on above: Result Comment: Nega tive Cutoff: <200 ng/mL Performed By: #### 2 925439 ####[facility] [address] [place] [address] Cocaine Ql (U) Negative Normal Negative [facility] Comment on above: Result Comment: Nega tive Cutoff: <300 ng/mL Performed By: #### 2 772922 ####[facility] [address] [place] [address] Opiates Screen Ql (U) Negative Normal Negative [facility] Comment on above: Result Comment: Nega tive Cutoff: <300 ng/mL Performed By: #### 2 538366 ####[facility] [address] [place] [address] Phencyclidine Screen method >25 ng/mL Ql (U) Negative Normal Negative [facility] Comment on above: Result Comment: Nega tive Cutoff: <25 ng/mL These drug screen results are to be used for medical (i.e., treatment) purposes only. Unconfirmed drug screening results must not be used for non-medical purposes (e.g., employment testing, legal testing). Performed By: #### 2 088112 ####[address] [place] [address] Tetrahydrocannabinol Screen method >50 ng/mL Ql (U) Negative Normal Negative [facility] Comment on above: Result Comment: Nega tive Cutoff: <50 ng/mL Performed By: #### 2 052238 ####[address] [place] [address] eGFRon 06-29-2022 GFR/1.73 sq M.predicted among blacks MDRD (S/P/Bld) [Vol rate/Area] mL/min/{1.73_m2} Normal >=59 [facility] Comment on above: Order Comment: Order added by Discern Expert. Result Comment: eGFR is race adjusted. AA=. Performed By: #### 2 493047, 6606338, 6332175, 39648102, 8336254, 3699630 ####[address] [place] [address] GFR/1.73 sq M.predicted among non-blacks MDRD (S/P/Bld) [Vol rate/Area] mL/min/{1.73_m2} Normal >=59 [facility] Comment on above: Order Comment: Order added by Discern Expert. Result Comment: Police Chief vadim kidney disease could be indicated at eGFR's of less than 60 mL/min/1.73m2. Kidney failure is indicated at less than 15 mL/min/1.73m2. Performed By: #### 2 611798, 0675279, 7403406, 35085552, 5068059, 5165028 ####[place] [address] [address] Coding Summary.on 06-16-2022 Coding Summary. CD:[id number] G h0bWw+PGhlYWQ+TE4RROE rM50zeVEqbN8WL5bCXT3O FDDUOJWAQY6GDL0amQY4H VjuX5PjvvGy WrjyrLRlGA54RDi6SDW9e DtlFUmqvI2wpULbA9k0Ej GnCX28uE43TXznDLClUjR 3LjZpbjsgbWFy X1uzJfEsfADlHhm+PHRhY mxlIHdpZHRoPScxMDAlJy KnmEpbDB9iSd3hCSXhXCN vbGxhcHNlOiBj b8szNVPbWFdeDF0laCfyG 2OpnZY8ILDux4h0Qz27dT I+HTPaMTJ0gJjfETmgj57 2BaYzp5ekOVG0 hDGnZZblVYJ9Z25qk9K4Z SVxUDDkNXZ9vDH3cN5eeY nexyjvS5ElaDHeFfW6NWI 7uEYwpU6yiJmg esupuK5kCtz+M36LWH2PV LUFGX1CSai7B9XkQdrqcJ I+CG85VRSyRC06vHOzlVL xs4zyfYv5FlNj HKImUGT6oAoqGNhsw0UaK RCcY39bhSEia5Q3QCPrmC hdxJSpFrEnmPO3yB0xPBx ksguqz3xvsafd Bfmhg4zzfd56yU97W30vX GjtNZJoOOY5SXShLYNrsZ nyyr1zeL9pGq4+LDhhk5v ev3aveTo2FmSt TXMtghXyyNpeWKB6z4PxR w10S6RzySzpl1TdJgc9zs 96zLUdf8Z8wAQ9MZdgKKQ zzF4bWLpgMuO3 FYYoFnLvvZ79yGDaLJvyM w2cdRfxbZzuHG5wVGRptk xfTCPgcB4sFEPpfKKisBp eJZ3yNLKbxwjl o180RzUqIXF7VFVwfDTmD 7GzvO2iOxHqHXKoIBUvL4 RxtROaGGmtR931FSfbMoZ 8ITCasuAvL1Sd FZNybJtuKnL3u3I7Hg3Ha 9XjnytlVFO7LBznSRJpYf R1IrPzKgE7M4KpCwm4CFD ehKsdCK3qV5Zc EWGexxcxcjtdfHW9GYUtL OVupM24gDLbMJwjPg0vr4 O7a366VFWtKZFvoT03Zm9 udDogMTBwdCBU cT1ebuush0doaereGfPlG BOdPLg1WUf0JJCcxMylUs VlGQU0FsM9XMI4zMFabM2 irUtzabzpcY7d Oyc+T51sbN9oEND2FDQ9y ftqCDUkfqWeFU10CX30H5 RyPjwvdGFibGU+PGRpdiB tvQgwWY4rEoVm x2dmg7YoDUriJ9ZaJBMxU EidOrl0SHAsOVZ8aDG2oQ 8qKYZoODjqk5L2bJJ8J5E iwbCaux9el8gq NOXsQEtdL53xiSOro1T7S AInxEB3KROjbZanNpZouK 93Oyc+UKBumDlgz2SkDub tw7slr9utqOu5 GaShFPOablKdlShxAIL6z 2FhMv58J85bWTueQQXrMH LtIYEnZERzqTrlzm3jpR9 wIi8+PGNvbCB3 nDN2mR2rYUIdJhR2JIseZ 535TmQhnSMoAbmla0ubs9 wmmHi7ZzRzXTPouoKnmPt zKMQ5i5ElNx45 D08mUZinJLSiWTWkNZBbF VXyzWjsdr5viG4pXu5+PC 0dw4txjw03iG32wDO+PHR uKTT4oNulCDyc OAVwhQ8dYGaoFzR4OWOvL xLrwW32rJAwJFbiUm7ziN ecdOfkCW0xAXChzgmpw25 7XjFro6nmESQl tLUdKUzvLEM2X22qe1J5M EHnRKNySLH2hFL5vD0zhO lnbjogbGVmdDsgdmVydGl oMManYUhqC887 IHRvcDsnPlBhdGllbnQgT vTuHCx7M2XrNxl8PKDarU icIL3hdURcPHlnDs2ohPj uhNvcAT0aQQVa tqtlc715KdUfl7hfBWYlt WJdZUqiKFD2I16wb7Z9IG OuUYJrPUO0kLG8aF0awBu nbjogbGVmdDsg yhGbwKhsBPtcGUxkS087K HRvcDsnPkJpcnRoIERhdG D2XD14QX87aLQfx9T9iJR 5I2KpUISixndi uxkqzAH4KRWfMLIozY65N v8ewHgoXz8oHOEyENR9DM LdeVJzT4AqvM4qTdHiVYT iKHHtI5UuzXMa GQuyE357ELogNkN7HNRsm nBsB9PzCZIdhQusHtP6d8 Y8Dd8AN2S2WM03OL17xQV tb7O0rEQ8A3Mm OLCrpbdccxnqmBE1AHJyY VVllZ37Eo4mbRipSj0sEV EsGEA6TAJqoENdT1OcdT0 yOiAjMDAwMDAw N9HbtHVjYVleF433IIirG kV1CCZvxhHoW9KcOGOtlD osJzK6s4G0Te2WAZt2YB2 7UT75pHSsd6D3 iCV2A7LyHPUjsxpdghwtf IJ7QPWeOCPqkN28Sw6pbH jyHz7kOFAtKZC8BJAbwVF qI3RhhS1sGuRa ECUhYXMwW6OwkWEoXDebQ 817BNfmNuP5WGTftkHlK1 HoSQPbsRctMgT7h5A1Jb9 RLOQcVO98ARX7 ePG5LZ21QD47T2DjMyjbl GFibGU+PHRhYmxlIHdpZH RoPScxMDAlJyBzdHlsZT0 uPx0sDUKlSHQn xSvdvMPqUqPoi7qoBVSsX CeiKE9vhSovU0ZfiFX6BW Fnl3q9Es61N44xQ1GrbMY +TOWrqKX5oHY5 iT9jQrVeItQ5FMyaN752U aVrpDPmVvgfb6efw9fcmY m2DsC3BHXerqFrkKtwAAF 8t6PqWg33N24p IHdpZHRoPSIxNSUiIHZhb Wdvzq7czH0vMc6+PGNvbC I3hPD2gQ1gTtKlYfP5WWn kG660CvMcwCIe Wxkws9qgt5fsrLj1DwPtP GFdelXqsEwyZLD8l2HwGw 25U0JltXins2AoRxu0fw7 8oVEqt0K9zXK5 T6OtVNDemnwkxWSxzPibK L2hSYLclygcRWPaqC1yIG IfS0m8MrRbTsF0IDhfI0C bsnQ7LOGmwKAq [id number] NJoSGW2pXR4gF9otDmutr ogbGVmdDsgdmVydGljYWw sGNsdO033QDLa pIrjWZLlhZ7aQOVezELva RtlGT9pNVFxwbobXjuKHo IUNYGKKIhBW0RqKFaqyHX +KNVfIKW5yJck YHpnMWMboU4uBEVjA1q1Y pApZoY8STaiT7ToLIJafr jkBe97tI4fRsQuDhA8JBw fO9AhmwV7FIBn gSKhTRlxZQU7C45tu4G4J CRlXBXgRJS5eGO2vH8ddU lnbjogbGVmdDsgdmVydGl xKSgqGPjuL286 VCEtdBdzUrX9SqN9FvE5E Po1Q5ImEcm4ZGSwzAgxWJ 9djSNtWRrjQm3izPwkaWx yUF5mUOBdaank UMJqvQ3qPNMpiHXlxDkuY J9gDKRlfmogx822CmXwPW C4XFMblNEwA9SgxD7vOpA tGDNfYRZdJ9Dm tSLaXBtpZ169HRuuFbS2X SCwtmKaP2RgZKCfbQcsGd V3f4V3Ll5dYZZDENUmyeb vdGQ+PHRkIHN0 pPanSEixYLHjqV9gYPMoI 3n3WjExVbD7QHoeU9LwSZ MiihycBx93iO3eZeZhMuS 9YPzgG7RfxhS0 BXNupKVhYHesKQD5I74za 1P8RQZqXBBrWAR2fWB0gI 1hbGlnbjogbGVmdDsgdmV ydGljYWwtYWxp B685HBRhxLhjClHfiCEeG TwvdGQ+IOJnKDP0eRpuSY hiWPHrcC4lGSCzE3f1VjQ yLkC1EFjeD5Qi BPAoaffqQh53mI3cFuHiK gL6OZadX5IpzfB9IKYhhF ByBXyhHJV6K58hs8I3XCT tZBAoCRJ0zFS5 rY0mfQnejsualHCgrQqwa oNsfJsgLTmpICnqE594ZV NjmHyxJz83zJJhhMltpxG 1F1WgMmhrdAB+ KD23ARJeYF64rYAdaELqr 7rkqQv4KoXgRTCzBPL4fT meUKspt4UvDKAvT34mkVO qy0G6XALhiPzb eIPjQvMamZR7yJ2eTKmim mkxi5wujcieQyjct9msij 59yQ70N97yBTtoOSIxNJD zMCUiIHZhbGln xw7fqS5dFb9+IGVanCT4y ED2lD6xCaBvWcM1QXgzI9 31OgZpdERxSodqy8tpp2a tmRl7UyFnWDWp jrBqdBieKPV9x6AmSm43W 29sIHdpZHRoPSIyMCUiIH FyvElhgk1xcJ6hEh1+PC9 nj7xrsr68kX53 dHI+OEZoGUG4rBxxXOkvE VNbzE0eWPsgEcI0WWTuHy IklU80uVSdUTpdEn5feMy evFatGM7kRFIy rfopw185McFft7wcISLng HThHCmuBUK0E91ew1W5PB OkDPBnPGB7aHE0lZ4gkGj nbjogbGVmdDsg ocRgzHcmMGtrISraC116E FVgzXvbPuDmsDDmQ8chlg LQYF6iMyydySK+PHRkIHN 0eWxlPSdwYWRk pF9tLGCnP8o7SaNqOhL5S UtvK6ShscS3HWQdkTHsHS IobGXQqM7ydteab7iuhbi gIzAwMDAwMDt0 NUv7YHOatZwdVcJrCHM3Z eQ3FAJ3rBJlfX3bzLgcsz bqeB1eDun+RklOOjwvdGQ +UTPwFLM7cDpf OEeiCEGxqG3bKVZlU9j4V hGtWtX8WPauK3AglxG6YC ArbLWfBOMjkNSZjA6ycyo at0ohcdmmNzGn GQCkFAy5IXn5LJPbrNnlQ sVuBRH9XjY0DHL0sYYtzO 8vxQkxtgdhoE1bNlf+TVJ OOjwvdGQ+PHRk DNI6cOvmQNfdWVJjvY6xA FOvO6s5YsCeUtQ6WOueH4 QomaQ1ROAgdUNuJVMnaNZ ByN2gcazkh5zl ruxwBnKfUMToBLr7BDo0U QByrKsgZgDsGMI9VkL7FN K6bMIwcY3yrOwavenrwH7 wOyc+BEC3IAV2 YQ85GP20M7HaRnskiKKdf +PHRhYmxlIHdpZHRoPS edDIOaBdQyiXakFH3rIh0 yZGVyLWNvbGxh cHNl (more content not included)... Normal [facility] CT Head or Brain w/ [...] 300 Contrast amount in ml's: 100 Normal [facility] Consent for Treatmenton 06-03 Consent for Treatment [id number] Normal [facility] URon 04-04-2022 , QUAL Negative Normal NEGATIVE [facility] Comment on above: Performed By: #### P REGU #### [facility] [address] [place] [address] Dr. Jorge Perez PAP ACOG PANEL 2: 21 to 29on 03-24-2022 . . Normal [facility] Comment on above: Performed By: #### [id number] #### [facility] [address] [place] [address] Dr. Jorge Perez DIAGNOSIS: Comment [facility] Comment on above: Result Comment: NEGA TIVE FOR INTRAEPITHELIAL LESION OR MALIGNANCY. THIS SPECIMEN WAS RESCREENED PART OF OUR BALING MACHINE OPERATOR PROGRAM. Performed By: #### 4 [id number] #### [facility] [address] [place] [address] Dr. Jorge Perez Methodology: Comment Normal [facility] Comment on above: Result Comment: This liquid based ThinPrep(R) pap test was screened with the use of an image guided system. Performed By: #### [id number] #### [facility] [address] [place] [address] Dr. Jorge Perez Note: Comment [facility] Comment on above: Result Comment: The Pap smear is a screening test designed to aid in the detection of premalignant and malignant conditions of the uterine cervix. It is not a diagnostic procedure and should not be used as the sole means of detecting cervical cancer. Both false-positive and false-negative reports do occur. . Performed By: #### 4 [id number] #### [facility] [address] [place] [address] Dr. Jorge Perez Performed by: Comment Normal [facility] Comment on above: Result Comment: Reymundo Fraire Regional Hr Manager (ASCP) Performed By: #### [id number] #### [facility] [address] [place] [address] Dr. Jorge Perez QC reviewed by: Comment Normal [facility] Comment on above: Result Comment: Gurpreet Khanna Regional Hr Manager (ASCP) Performed By: #### 4 [id number] #### [facility] [address] [address] [address] Jorge Perez Reflex Criteria: Comment Normal [facility] Comment on above: Result Comment: The HPV DNA reflex criteria were not met with this specimen result therefore, no HPV testing was performed. . Performed By: #### 4 [id number] #### [facility] [address] [address] [address] Jorge Perez Specimen adequacy: Comment Normal [facility] Comment on above: Result Comment: Sati sfactory for evaluation. Endocervical and/or squamous metaplastic cells (endocervical component) are present. Performed By: #### [id number] #### [facility] [address] [place] [address] Dr. Jorge Perez Age Gdln ACOG Testing 21-29 Normal [facility] Comment on above: Performed By: #### 4 [id number] #### [facility] [address] [address] [address] Jorge Perez Vital Signs Date Time Vital Sign Value Performing Clinician Facility 10-11-2023 15:40-0500 Body mass index (BMI) [Ratio] 27.81 kg/m2 Mamie OSBORNE Work Phone: [facility] 10-11-2023 15:40-0500 Body weight 71.22 kg Mamie OSBORNE Work Phone: [facility] 10-11-2023 15:40-0500 Diastolic blood pressure 70 mm[Hg] Mamie OSBORNE Work Phone: [facility] 10-11-2023 15:40-0500 Systolic blood pressure 118 mm[Hg] Mamie OSBORNE Work Phone: [facility] 07-03-2022 07:30-0400 Body temperature 97.8 [degF] MD Shannon Glez Work Phone: [facility] 07-03-2022 07:30-0400 Diastolic blood pressure 81 mm[Hg] MD Shannon Glez Work Phone: [facility] 07-03-2022 07:30-0400 Heart rate 93 /min MD Shannon Glez Work Phone: [facility] 07-03-2022 07:30-0400 Respiratory rate 16 /min MD Shannon Glez Work Phone: [facility] 07-03-2022 07:30-0400 SaO2% (BldA) [Mass fraction] 98 % MD Shannon Glez Work Phone: [facility] 07-03-2022 07:30-0400 Systolic blood pressure 120 mm[Hg] MD Shannon Glez Work Phone: [facility] 06-30-2022 15:55-0400 Body height 160.02 cm MD Shannon Glez Work Phone: [facility] 06-30-2022 03:18-0400 Body weight 57.15 kg MD hSannon Glez Work Phone: [facility] Encounters Encounter Date Encounter Type Care Provider Facility Start: 12-31-2023 ambulatory RONNY [facility] Start: 10-25-2023 End: 10-25-2023 ambulatory MAMIE NAYELY Not Available Start: 10-11-2023 End: 10-11-2023 ambulatory MAMIE NAYELY Not Available Start: 10-11-2023 End: 10-11-2023 Office outpatient visit 10 minutes Mamie Nayely OSBORNE Work Phone: [facility] Comment on [...] Available Start: 07-16-2023 End: 07-16-2023 ambulatory MAMIE ADLER Not Available Start: 06-06-2023 End: 06-07-2023 ambulatory Papi Lilly Facility:[facility] Start: 06-04-2023 ambulatory [facility] Start: 04-24-2023 End: 04-24-2023 ambulatory [facility] Start: 12-25-2022 End: 03-26-2023 ambulatory FIONA GRIER Facility:[facility] Start: 12-09-2022 End: 12-10-2022 ambulatory Katherin PETERSEN Facility:[facility] Start: 12-04-2022 End: 12-05-2022 ambulatory Sunshine Mejias Facility:[facility] Start: 11-13-2022 End: 11-13-2022 ambulatory AUDERY MORGAN Facility:[facility] Start: 11-13-2022 End: 11-13-2022 Subsequent hospital visit by physician Arden Morgan 1 Work Phone: Radiology Comment on above: Internal derangement of left knee [M23.92] Start: 10-11-2022 End: 10-12-2022 ambulatory DAMI CHAPIN Facility: Start: 09-06-2022 End: 09-06-2022 ambulatory FIONA GRIER Facility: Start: 06-30-2022 End: 07-03-2022 Evaluation and management of inpatient Kyle Pepe Facility:[facility] Start: 06-30-2022 End: 07-03-2022 Evaluation and management of inpatient MD Shannon Glez Work Phone: [facility] Start: 06-29-2022 End: 06-30-2022 Emergency department patient visit Sai Vasquez Facility:[facility] Start: 06-12-2022 End: 06-13-2022 ambulatory Elvis Quinn Facility:[facility] Start: 04-04-2022 End: 04-04-2022 ambulatory FIONA GRIER Facility: Start: 03-20-2022 End: 03-20-[address] SUZANNE JON Facility:[facility] Procedures Date Procedure Procedure Detail Performing Clinician Start: 11-13-2022 Radiologic exam knee complete 4/more views Audrey Morgan MD Work Phone: H/O: section S/P Mamie OSBORNE Work Phone: Plan of Treatment Date Care Activity Detail Author Start: 02-13-2026 Urine microalbumin profile DTaP,Tdap,Td Vaccine (8 - Td or Tdap) [facility] Start: 05-04-2024 Covid-19 Vaccine ( season) Covid-19 Vaccine () [facility] Start: 05-04-2024 Influenza vaccination Influenza Vaccine (#1) [facility] Start: 10-25-2023 End: 10-25-2023 ambulatory 10/25/2023 2:30 PM EST Visit [facility] [address] [id number] Mamie Adler PA [address] [place] [address] [facility] Start: 07-03-2022 [facility] Start: 06-30-2022 Referral to Organizational Research Consultant [facility] Start: 06-30-2022 Hospital admission [facility] Start: 2018 Screening for malignant neoplasm of cervix Cervical Cancer Screening [facility] Start: 2015 Anxiety Screening Anxiety Screening [facility] Start: 2015 Depression Screening Depression Screening [facility] Start: 2015 Hepatitis C screening Hepatitis C Screening [facility] Start: 2015 HIV screening HIV Screening [facility] Patient Education Anxiety, Adult (DC) [facility] Behavioral Health DC Instructions [facility] Work Phone: Patient referral [facility] Work Phone: Immunizations Immunization Date Immunization Notes Care Provider Fa cility 07-29-2013 influenza virus vacc ine, unspecified formulation Xr 1 Work Phone: [facility] Payers Date Payer Category Payer Unknown [id number] 2022 Medicaid [id number] 2022 Medicaid [id number] 2022 Medicaid [id number] 2022 Unknown [id number] 2022 Self-pay 1997 Unknown [id number] 2.16.84 0.1.862383.3.579.2.593 1997 Unknown [id number] 2.16.84 0.1.459444.3.579.2.593 1997 Unknown [id number] 2.16.84 0.1.802066.3.579.2.593 1997 Unknown [id number] 2.16.84 0.1.532072.3.579.2.593 1997 Unknown [id number] 2.16.8 40.1.098372.3.579.2.727 1997 Unknown [id number] 2.16.8 40.1.418691.3.579.2.727 1997 Unknown [id number] 2.16.8 40.1.218100.3.579.2.727 1997 Unknown [id number] 2.16.8 40.1.805499.3.579.2.727 1997 Unknown [id number] 2.16.8 40.1.397186.3.579.2.727 1997 Unknown [id number] 2.16.8 40.1.267961.3.579.2.727 1997 Unknown [id number] 2.16.84 0.1.821148.3.579.2.1259 1997 Unknown [id number] 2.16.84 0.1.149960.3.579.2.1259 1997 Unknown [id number] 2.16.84 0.1.716723.3.579.2.1259 1997 Unknown [id number] 2.16.840 .1.593118.3.579.2.9 1997 Unknown [id number] 2.16.840 .1.185663.3.579.2.9 1997 Unknown [id number] 2.16.840 .1.741372.3.579.2.1258 1997 Unknown [id number] 2.16.840 .1.649612.3.579.2.1258 1997 Unknown [id number] 2.16.840 .1.617330.3.579.2.1258 1997 Unknown [id number] 2.16.840. 1.796749.3.579.2.1259 1959 Unknown [id number] 1959 Unknown [id number] Unknown [id number] 2.16.8 40.1.173849.3.579.2.531 Social History Date Type Detail Facility Start: 06-30-2022 End: 02-02-2023 Tobacco smoking status PAIS Never smoked tobacco (finding) [facility] Start: 1995 Sex Assigned At Female [facility] Start: 02-02-2023 Tobacco use and exposure Smokeless tobacco non-user [facility] Start: 10-11-2023 Alcohol intake Lifetime non-drinker (finding) [facility] Start: 11-13-2022 End: 07-13-2023 History of Social function [facility] Start: 11-13-2022 End: 07-13-2023 Alcohol Use Disorder Identification Test [...] At Not on file [facility] Start: 03-15-2023 Gender identity Identifies as female gender (finding) [facility] Tobacco smoking stat us NHIS Tobacco smoking consumption unknown [facility] National Score (1-10 0), lower number is lower risk 66 [facility] Goals Date Patient Goal Desired Activity /State Functional Status Date Assessment Result Facility 07-03-2022 Functional status [facility] Work Phone: Mental Status Date Assessment Result Facility 07-03-2022 Cognitive function Cognitive Sta tus Patient at [facility] Work Phone: Clinical Notes 04-04-2022 to 12-31-2023 INDIA Forman - 10/11/2023 3:20 PM EST Note Date & Type Note Facility 12-31-2023 Note Orthopedic Surgery Subjective Chief complaint: Chief Complaint Patient presents with Left Knee - Follow-up 01/02/24 Priyanka Hardin is a 28 y.o. year old female presenting for [facility] follow-up evaluation of her left knee. She [...] a 28 y.o. year old female with [facility] injury of left knee sprain with evidence [...] MD Orthopedic Surgery Resident Orthopedic Surgery Pager: [phone] 01/02/24 8:20 AM By using the attestations [...] be an additional personal documentation from me. [facility] 10-11-2023 History of Present illness Narrative Reason [...] calculated from the following: Height as of 23: 5' 3 . Weight as of this [...] of: INDIA Forman documented in this encounter [facility] 06-04-2023 Note Attestation signed by Ronny Saha [...] an injury in September. 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 On the way to ER is reduced on its own. Since then she has pain with ambulation and edema in the left knee worse with walking. She saw an Ortho in [facility] and MRI completed which she was informed [...] be an additional personal documentation from me. [facility] 04-24-2023 Note Attestation signed by Ronny Saha [...] Patient presents with Left Knee - Pain [facility] Injury, meniscus tear injured 09/06/2022 04/24/23 Priyanka Hardin is a 28 y.o. year old female presenting for evaluation of left knee pain that first started after an injury in September. 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 On the way to ER is reduced on its own. Since then she has pain with ambulation and edema in the left knee worse with walking. She saw an Ortho in [facility] and MRI completed which she was informed [...] be an additional personal documentation from me. [facility] 11-13-2022 Note HNO ID: [id number] Author: RT Jarad(R) Service: ? Author Type: [...] RT Jarad(R) November 13, 2022 9:43 AM [facility] 09-06-2022 Note PROCEDURE: XR KNEE L T 4V or > HISTORY: Pain in left knee ; acute COMPARISON: None. FINDINGS: BONES:No fracture, acute abnormality, or significant arthropathy. SOFT TISSUES:No visible soft tissue swelling. EFFUSION:None visible. OTHER: Negative. IMPRESSION: 1. Normal examination. Electronically authenticated by: BRYAN ESPINO Date: 2022-09-06 13:41 [facility] 07-03-2022 Discharge summary Note Date/Time July 03, 2022 11:08am [facility] [address] [place] [address] Discharge Summary Signed Patient: Priyanka Hardin MR#: [id number] : 1995 Acct:[id number] Age/Sex: 27 / F Adm Date: 2 Loc: Room: [address] [place] [address]: Kyle Pepe MD Copies to: [...] 27 year old female that was admittedto S. for attempted overdose. Patient states she took [...] therapist at [facility] in [place].Patient states she has been diagnosed with generalized [...] Reports childhood trauma Living: With boyfriend Employment: [employer] Patient was started on Cymbalta. She [...] mg SUBCUT QWEEK Follow Up: [facility] [Outside] [facility] [Outside] - 07/07/22 10:45 am (Psychiatry: 07/07/22 @ 10:45am with Fiona Grier CNP Therapy: Sunday07/14/22 @ 11:00am with [place] ) Documented By: Kyle Pepe MD 07/03/22 1107 Signed By: <Electronically signed by Kyle Pepe MD> 07/03/[address] [facility] Work Phone: 1(390) 914-172910-30-2022 Progress note Author Kyle Pepe [facility] July 02, 2022 12:56pm Note Date/Time July 02, 2022 1 2:55pm [facility] [address] [place] [address] Psychiatry Progress Note Signed Patient: Priyanka Hardin MR#: [id number] : 1995 Acct:[id number] Age/Sex: 27 / F Adm Date: 2 Loc: Room: [address] [place] [address] Type : ADM IN Attending Dr: Kyle [...] By: <Electronically signed by Kyle Pepe MD> 07/02/[address] [facility] Work Phone: 1(288) 515-277110-29-2022 Progress note Author Kyle Pepe [facility] July 01, 2022 12:46pm Note Date/Time July 01, 2022 9 :01am [facility] [address] [place] [address] Psychiatry Progress Note Signed Patient: Priyanka Hardin MR#: [id number] : 1995 Acct:[id number] Age/Sex: 27 / F Adm Date: 2 Loc: Room: [address] [place] [address] Type : ADM IN Attending Dr: Kyle [...] therapy. She follows with outpatient counseling at [facility]. Continue Cymbalta 30 mg daily Monitor suicidal behaviors for safety of self (15-minute face check) Recommend attending groups and psychoeducation for building coping skills Risks, benefits and indications of medications were discussed with the patient Documented By: Areli Barbosa DO, RES 07/01/22 0901 Signed By: <Electronically signed by DO CHERRY Barbosa> 07/01/22 1041 <Electronically signed by Kyle Pepe MD> 07/01/[address] [facility] Work Phone: 1(603) 743-172610-28-2022 History and physical note Author Kyle Pepe [facility] June 30, 2022 4:32pm Note Date/Time June 30, 2022 9 :25am [facility] [address] [place] [address] Psychiatry H&P Signed Patient: Priyanka Hardin MR#: [id number] : 1995 Acct:[id number] Age/Sex: 27 / F Adm Date: 2 Loc: Room: [address] [place] [address] Type: ADM IN Attending Dr: Kyle Pepe MD Copies to: MD Shannon Gillespie MD, DO, RES~ Date of Service: 06/30/2022 HPI History of Present Illness History of present illness: Ms. Hardin is a 27 year old female that was admitted to [facility] for attempted overdose. Patient states she [...] Psych nurse practitioner and the therapist at [facility].Patient states she has been diagnosed with [...] Reports childhood trauma Living: With boyfriend Employment: [employer] Mental status exam Appearance: Grossly normal [...] History (Updated 06/30/22 @ 01:55 by Mary Gong, MARLENY) Other No significant family history Social History [...] Documented By: Areli Barbosa DO, RES 06/30/22 0925 Signed By: <Electronically signed by RES Areli Barbosa> 06/30/22 1211 <Electronically signed by Kyle Pepe MD> 06/30/[address] [facility] Work Phone: 1(970) 361-376708-02-2022 NotePROCEDURE: XR WRIST LT MIN 3 V HISTORY: Bone injury ; acute left wrist pain after falling COMPARISON: None. FINDINGS: BONES:No fracture, acute abnormality, or significant arthropathy. SOFT TISSUES:No visible soft tissue swelling. EFFUSION:None visible. OTHER: Negative. IMPRESSION: 1. No acute bone abnormality. Electronically authenticated by: BRYAN ESPINO Date: 2022-04-04 14[facility]16[facility] Diagnosis Onset Date Resolution Status Anxiety acute Suicidal ideation acute Suicide attempt by drug overdose acute [facility] Work Phone: Evaluation note* Diagnosis S/P [facility] Diagnosis Internal derangement of left knee Unspecified internal derangement of knee documented in this encounter [facility] Discharge instructions Additional Instructions Regular diet. No activity restrictions.[facility] Work Phone: Reason for referral (narrative)* Diagnostic Procedure Only (Routine) - Closed Specialty Diagnoses / Procedures Referred By Contac t Referred To Contact XR IMAGING Diagnoses Internal derangement of left knee Procedures XR KNEE GENERAL 4V AP BOTH/PA BOTH/LAT/MERC LEFT RADIOLOGIC EXAM KNEE COMPLETE 4/MORE VIEWS Audrey Morgan MD [address] [place] [address] [place] [address] Referral ID Status Reason Start Date Expiration Date V isits Requested Visits Authorized [id number] Closed Auto-Generate d Referral 10/22/2022 09/02/2023 1 1 [facility] Diagnostic Procedure Only (Routine) - Closed Specialty Diagnoses / Procedures Referred By Contac t Referred To Contact XR IMAGING Diagnoses Internal derangement of left knee Procedures XR KNEE GENERAL 4V AP BOTH/PA BOTH/LAT/MERC LEFT RADIOLOGIC EXAM KNEE COMPLETE 4/MORE VIEWS Audrey Morgan MD [address] [place] [address] [place] [address] Referral ID Status Reason Start Date Expiration Date V isits Requested Visits Authorized [id number] Closed Auto-Generate d Referral 10/22/2022 09/02/2023 1 1 [facility] Summary Purpose Family History Relationship Condition Age at Onset Recorded Date/T bette Not Specified No pertinent family history Unknown Advance Directives Advance Directive Response Recorded Date/ Time Advance Directives No June 29, 2022 10:30pm Chief Complaint and Reason for Visit Chief Complaint Bipolar Reason for Visit Anxiety Suicidal ideation Suicide attempt by drug overdose Additional Source Comments INFORMATION SOURCE (unrecogn ized section and content) DATE CREATED AUTHOR 07/03/2022 [facility] DATE CREATED AUTHOR AUTHOR'S ORGANIZ ATION 10/12/2022 [facility] DATE CREATED AUTHOR AUTHOR'S ORGANIZ ATION 11/15/2022 [facility] DATE CREATED AUTHOR AUTHOR'S ORGANIZ ATION 06/10/2023 [facility] DATE CREATED AUTHOR AUTHOR'S ORGANIZ ATION 11/02/2023 [facility] DATE CREATED AUTHOR AUTHOR'S ORGANIZ ATION 01/30/2024 [facility] Care Teams (unrecognized sec tion and content) Team Status: Inactive Member Role Status Dates Shannon Glez MD Primary Care Provider Active Kyle Pepe MD Admit Provider, Attending Provider Active Team Status: Active Member Role Status Dates Shannon Glez MD Primary Care Provider Active Reason for Visit (unrecogniz ed section and content) Reason Comments Post-op Visit Incision check Source Comments (unrecognize d section and content) In the event this informatio n is protected by the Federal Confidentiality of Alcohol and Drug Abuse Patient Records regulations: The Federal rules restrict any use of the information to criminally investigate or prosecute any alcohol or drug abuse patient.[facility] FOR RECORDS PERTAINING TO PATIENTS WHO ARE [...] BE BASED ON THE PRIMARY CLINICAL RECORDS. [facility] [employer] [facility] provides no warranty or guarantee of the accuracy or completeness of information in this document.
[2024-11-09 19:06] VITALS: BP 120/73; PULSE 95; TEMP 37.3; O2SAT 99; BMI 23.0
[2024-11-09] MEDS: ONDANSETRON 4 MG RAPDIS TABLET SL (19:40)
--- NOTE | 2024-11-09 19:57 | ED.GENADUL1 ---
HPI HPI - General Adult General Chief complaint: Nausea/Vomiting/Diarrhea Stated complaint: Flu Time Seen by Provider: 11/09/24 19:43 Source: patient Mode of arrival: walk-in Limitations: no limitations History of Present Illness HPI narrative: Patient is a 29-year-old female who is presenting to the ER today with chief complaint of nausea, vomiting diarrhea. Patient stated that she started with flulike symptoms today. 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 Patient did not go to work today. Patient was at home with her baby today, patient denies any body wash the baby until tonight when her boyfriend came home so that she can come to the ER for evaluation. Patient has no headache or neck pain. Patient chief concern is getting a work note for work today. Patient states that she is not , not concerned about and is not 1 to be checked. Patient just finished her last menses 1 to 2 weeks ago. Patient has no rash. No recent traveling. No other acute complaints Nurses note and vital signs reviewed and patient is not hypoxic. Patient looks extremely well, was sitting in the conference room in a chair, playing on her cell phone, smiling when I walk into the room. General: The patient appears well and in no apparent distress. Patient is resting comfortably on cart. Patient is not toxic, lethargic, or listless Skin: Warm, dry, no pallor noted. There is no rash noted. No petechiae, purpura. Head: Normocephalic, atraumatic Eye: Normal conjunctiva, no drainage, EOMI. PERRL Ears, Nose, Mouth, and Throat: oral mucosa is moist. Nares patent. Mouth without vesicles. Cardiovascular: Regular Rate and Rhythm, no murmur, gallop, rub Respiratory: Patient is in no distress, no accessory muscle use, lungs are clear to auscultation, no wheezing, rales or rhonchi Back: non-tender, no CVA tenderness bilaterally to percussion. No CT LS midline pain GI: Soft, no tenderness to palpation, no masses appreciated. No rebound, guarding, or rigidity noted. No distention. No peritoneal signs Musculoskeletal: Patient has full range of motion of all of the extremities, no motor, sensory, or focal neurological deficits Neurological: A&O x4, normal speech Psychiatric: Cooperative Related Data Home Medications ?Medication ?Instructions ?Recorded ?Confirmed omeprazole 20 mg capsule,delayed 20 mg PO DAILY 09/09/23 09/09/23 release vits no.130-ferrous fum 1 tab PO DAILY 09/09/23 09/09/23 27 mg iron-folic acid 800 mcg tablet ( Vitamin) Previous Rx's ?Medication ?Instructions ?Recorded ibuprofen 800 mg tablet 800 mg PO Q8H PRN pain 14 days #40 09/12/23 tabs oxycodone-acetaminophen 5 mg-325 1 tab PO Q6H PRN pain 7 days #28 09/12/23 mg tablet (Percocet) tabs Allergies Allergy/AdvReac Type Severity Reaction Status Date / Time No Known Drug Allergies Allergy Verified 11/09/24 19:06 Opioid HPI Opioid Management Most Recent Opioid Data: Last Pain Scale 2 02/25/24 21:46 02/25/24 Ur Phencyclidine Scrn Negative (NEGATIVE) 09/09/23 11:00 09/09/23 PFSH PFSH Social History Smoking status: Current every day smoker Little interest or pleasure in doing things: not at all Feeling down, depressed, or hopeless: not at all Exam Constitutional Vital Signs, click to edit/add: Last Vital Signs Temp 99.1 F 11/09/24 19:06 Pulse 95 H 11/09/24 19:06 Resp 18 11/09/24 19:06 BP 120/73 11/09/24 19:06 Pulse Ox 99 11/09/24 19:06 O2 Del Method Room Air 11/09/24 19:06 Course Vital Signs Vital signs: Vital Signs Temperature 99.1 F 11/09/24 19:06 Pulse Rate 95 H 11/09/24 19:06 Respiratory Rate 18 11/09/24 19:06 Blood Pressure 120/73 11/09/24 19:06 Pulse Oximetry 99 11/09/24 19:06 Oxygen Delivery Method Room Air 11/09/24 19:06 Temperature 99.1 F 11/09/24 19:06 Pulse Rate 95 H 11/09/24 19:06 Respiratory Rate 18 11/09/24 19:06 Blood Pressure 120/73 11/09/24 19:06 Pulse Oximetry 99 11/09/24 19:06 Oxygen Delivery Method Room Air 11/09/24 19:06 Medical Decision Making MDM Narrative Medical decision making narrative: Patient was given a Zofran. Patient was sent home with a prescription for Zofran. Patient will follow-up with PCP, no questions at discharge. Patient was given a work note. Education on treating flulike symptoms was discussed at bedside and on discharge paper. Discharge Plan Discharge Stand Alone Forms: Work/School Release Chief Complaint: Nausea/Vomiting/Diarrhea Clinical Impression: Nausea & vomiting, Diarrhea Patient Disposition: Home, Self-Care Condition: Fair Prescriptions / Home Meds: No Action omeprazole 20 mg capsule,delayed release(DR/EC) 20 mg PO DAILY Vitamin 27 mg iron- 800 mcg tablet 1 tab PO DAILY ibuprofen 800 mg tablet 800 mg PO Q8H PRN (Reason: pain) 14 Days Qty: 40 0RF oxycodone-acetaminophen [Percocet] 5-325 mg tablet 1 tab PO Q6H PRN (Reason: pain) 7 Days Qty: 28 0RF Print Language: New Zealander Instructions: Acute Nausea and Vomiting (ED), Acute Diarrhea (ED) Additional Instructions: Increase fluids, Gatorade, Powerade, water. Use Zofran if needed to help increase fluids Follow-up with PCP if no improvement in the next 2 or 3 days. Referrals: [facility] [Primary Care Provider] - 1 week Discharge Date/Time: 11/09/24 20:00
== END 2024-11-09 20:00 | disposition home or self-care (01) ==
PROVIDERS: Emergency Provider Emergency Medicine
DX: R11.2 Nausea with vomiting, unspecified (principal); R19.7 Diarrhea, unspecified; F17.200 Nicotine dependence, unspecified, uncomplicated
CPT/HCPCS: 99283; Q0162

== ENCOUNTER 2025-03-13 13:13 | Outpatient (OUT) | payer MEDICAID, SELFPAY ==
--- OUTSIDE RECORDS SUMMARY | 2023-10-17 04:00 | XMS_ITS ---
Author Organization 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 Name Role Phone Hao Moreno Primary Care Provider Payton Garcia [phone] REASON FOR VISIT BH f/u weekly Encounters Encounter Location Date Provider Diagnosis [place] [place] [address] 10/17/2023 Payton Garcia Plan Of Treatment No Information Progress Notes * ROSALVA HARDIN MDOB: 7 (29 yo F)Acc No.[id number]:10/17/2023 BH F/U - Patient Patient: Thom ROSALVA BYRD Provider: Thom Garcia :1995 A ge:28 Y S ex:Female Date:10/17/2023 Address[id number] Pcp:Hao Moreno Subjective: * Chief Complaints: * 1 . BH f/u weekly. Objective: Therapeutic Interventions: Assessment: Plan: * Images: Care Plan Details* * Electronic signature of MIRIAN Son on 03/13/2025 at 01:18 PM EDT Sign off status: Pending * Provider: Thom Garcia Date: 10/17/2023 Generated for Fatoumata neville/Preet/eTransmitting on: 0 03/13/2025 01:18 PM EDT
--- OUTSIDE RECORDS SUMMARY | 2025-02-27 10:00 | XMS_ITS | Encounter Summary ---
Demographics Address [address] [place] [address] Home Phone Mobile Phone Email Address Preferred Language en Marital Status Unmarried Confucianism Affiliation Unknown Race White Ethnic Group Not or Lati no Author Organization [facility] Address [address] [address] Care Team Providers Care Fisher Trawl Line Name Role Phone Unavailable Primary Care Provider Unavailabl e Encounter Details Date Type Department Care Team (Late Contact Info) Description 02/27/2025 10:00 AM EDT Ancillary Procedure [facility] [address] [place] [id number] Missed menses Social History Tobacco Use Types Packs/Day Years Used Date Smoking Tobacco: Never Smokeless Tobacco: Never Alcohol Use Standard Drinks/Week Comments Never 0 (1 standard drink = 0.6 oz pure alcohol) Alcohol: 1 or 2 drinks on typical day/monthly or less. AUDIT-C Answer Date Recorded Q1: How often do you have a drink containing alc ohol? Monthly or less 07/13/2023 Q2: How many drinks containi ng alcohol do you have on a typical day when you are drinking? 1 or 2 07/13/2023 Q3: How often do you have si x or more drinks on one occasion? Never 07/13/2023 Estimated Date of Delivery Comme nts Yes 09/30/2025 Based on last me nstrual period of 12/24/2024 (Exact Date) Sex and Gender Information Value Date Recorded Sex Assigned at Not on file Legal Sex Female 7:27 PM EDT Gender Identity Female 11/15/2022 7:27 PM EDT Sexual Orientation Not on file documented as of this encounter Plan of Treatment Upcoming Encounters Date Type Department Care Team (Late Contact Info) Description 03/23/2025 11:10 AM EDT Routine [facility] [address] [place] [address] Sanjeev Casey, DO [address] [place] [address] documented as of this encounter Procedures Procedure Name Priority Date/Time Associated Diagnosis Comments US OB TRANSVAGINAL Routine 02/27/2025 10 :30 AM EDT Missed menses documented in this encounter Results * US OB transvaginal (02/27/2025 10:30 AM EDT) Anatomical Region Laterality Modality Body Ultrasound 03/01/2025 10:0 6 PM EDT Narrative 03/01/2025 10:06 PM EDT EXAM: US OB TRANSVAGINAL HISTORY: Dating. COMPARISON: None available. TECHNIQUE: Two-dimensional transvaginal grayscale ultrasound imaging of the pelvis was performed. Color Doppler evaluation of the ovaries was also performed. FINDINGS: The uterus demonstrates a normal homogeneous echotexture. The cervix measures 3.3 cm in length and the cervical os is closed. The right ovary measures 3.5 x 2.1 x 2.7 cm and demonstrates a normal echotexture. There is normal color Doppler flow. There are prominent vessels visualized within the right adnexa. The left ovary measures 2.5 x 1.2 x 2.3 cm and demonstrates a normal echotexture. There is normal color Doppler flow. Trace fluid is present within the cul-de-sac. There is a single, live intrauterine gestation identified with a heart rate of 166 beats per minute and a crown-rump length measurement of 2.5 cm, correlating to a gestational age of 9 weeks 1 days (+/- 6 days). There is no subchorionic hemorrhage visualized. A yolk sac is visualized. IMPRESSION: 1. Single, live intrauterine gestation 9 weeks, 2 days by LMP. Today's ultrasound measurements correlate with a gestational age of 9 weeks 1 days (+/- 6 days). HOLDEN by today's ultrasound is 10/01/2025. 2. Normal color Doppler evaluation of the bilateral ovaries. Interpreted by: Electronically signed by DULCE THEODORE II, MD, PHD at 01-Mar-2025 10:04:28 PM [facility] Procedure Note Dulce Theodore MD - 03/01/2025 EXAM: US OB TRANSVAGINAL HISTORY: Dating. COMPARISON: None available. TECHNIQUE: Two-dimensional transvaginal grayscale ultrasound imaging ofthe pelvis was performed. Color Doppler evaluation of the ovaries was alsoperformed. FINDINGS: The uterus demonstrates a normal homogeneous echotexture. The cervixmeasures 3.3 cm in length and the cervical os is closed. The right ovary measures 3.5 x 2.1 x 2.7 cm and demonstrates a normalechotexture. There is normal color Doppler flow. There are prominentvessels visualized within the right adnexa. The left ovary measures 2.5 x 1.2 x 2.3 cm and demonstrates a normalechotexture. There is normal color Doppler flow. Trace fluid is present within the cul-de-sac. There is a single, live intrauterine gestation identified with a fetalheart rate of 166 beats per minute and a crown-rump length measurement of2.5 cm, correlating to a gestational age of 9 weeks 1 days (+/- 6 days).There is no subchorionic hemorrhage visualized. A yolk sac isvisualized. IMPRESSION: 1. Single, live intrauterine gestation 9 weeks, 2 days by LMP. Today'sultrasound measurements correlate with a gestational age of 9 weeks 1 days(+/- 6 days). HOLDEN by today's ultrasound is 10/01/2025. 2. Normal color Doppler evaluation of the bilateral ovaries. Interpreted by: Electronically signed by DULCE THEODORE II, MD, PHD [id number] 10:04:28 PM [facility] us Sanjeev NASSAR OB US PROCEDURES Final Resul t documented in this encounter Visit Diagnoses Diagnosis Missed menses documented in this encounter
--- OUTSIDE RECORDS SUMMARY | 2025-02-27 10:30 | XMS_ITS | Encounter Summary ---
Demographics Address [address] [place] [address] Home Phone Mobile Phone Email Address Preferred Language en Marital Status Unmarried Latter-Day Affiliation Unknown Race White Ethnic Group Not or Lati no Author Organization [facility] Address [address] [place] [address] Care Team Providers Care Paste Mixer Liquid Name Role Phone Unavailable Primary Care Provider Unavailabl e Reason for Visit * Reason Comments Amenorrhea Encounter Details Date Type Department Care Team (Late st Contact Info) Description 02/27/2025 10:30 AM EDT Initial [facility] [address] [place] [id number] GA: 9w2d Social History Tobacco Use Types Packs/Day Years [...] on file documented as of this encounter Last Filed Vital Signs Vital Sign Reading Time Taken Comments Blood Pressure 116/70 02/27/2025 11:13 AM EDT Pulse - - Temperature - - Respiratory Rate - - Oxygen Saturation - - Inhaled Oxygen Concentration - - Weight 61.7 kg (136 lb 2 oz) 02/27/2025 11:13 AM EDT Height - - Body Mass Index 24.11 02/02/2023 9:28 AM EDT documented in this encounter Progress Notes * Suzanna Moses MA - 02/27/2025 10:30 AM EDT Reason for Appointment: Patient ID: Priyanka Shukla is a 29 y.o. female who presents for Amenorrhea Patient presents today for a Nurse OB Intake appointment. Patient is 9w2d with a Estimated Date of Delivery: 09/30/25 OB History Para Term AB Living 2 1 1 1 SAB IAB Ectopic Multiple Live Births 1 # Outcome Date GA Lbr Chai/2nd Weight Sex Type Anes PTL Lv 2 Current 1 Term 09/09/23 39w4d 8 lb 14 oz F CS-LTranv INGE Complications: Uterine Rupture Current Medications: has a current medication list which includes the following prescription(s): famotidine and (w/iron & fa). Medical History: Active Ambulatory Problems Diagnosis Date Noted No Active Ambulatory Problems Resolved Ambulatory Problems Diagnosis Date Noted No Resolved Ambulatory Problems Past Medical History: Diagnosis Date Anxiety Blighted ovum ([facility]) 2020 BMI 21.0-21.9, adult Chlamydia 11/08/2020 Low [...] 2020 PAP SMEAR 11/14/2018 No Known Allergies Vitals: Estimated body mass index is 24.11 kg/m?? as calculated from the following: Height as of 02/02/23: 5' 3 . Weight as of this encounter: 136 lb 2 oz. BP: 116/70 Patient's last menstrual period was 12/24/2024 (exact date). Assessment/Plan Diagnoses and all orders for this visit: Missed menses - US OB transvaginal; Future - Type and screen; Future - ABO/Rh; Future - CBC and differential - Hemoglobin A1c - RPR - Rubella antibody, IgG - Hepatitis B surface antigen - Hepatitis C antibody - HIV-1 and HIV-2 antibodies - Urine culture - POCT , urine manually resulted - POCT urinalysis dipstick manually resulted , unspecified gestational age ([facility]) - Type and screen; Future - ABO/Rh; Future - CBC and differential - Hemoglobin A1c - RPR - Rubella antibody, IgG - Hepatitis B surface antigen - Hepatitis C antibody - HIV-1 and HIV-2 antibodies - Rapid drug screen, urine; Future Encounter for supervision of normal first in first trimester ([facility]) - Rapid drug screen, urine; Future Gastroesophageal reflux in ([facility]) - famotidine (Pepcid) 20 MG tablet; Take 1 tablet (20 mg) by mouth Daily Nurse Note: OB Intake: Patient presents today for first OB visit. Patients history has been reviewed in great detail including any potential risks. Patient signed consent forms and patient desires testing in both trimesters. Patient currently has no complaints and has been advised to drink 6-8 glasses of water a day, eatno raw or undercooked meat, and stay away from [facility]. Patient has also been advised to not change litter boxes and eat 6 small meals a day. Patient has been consulted regarding the do's and don'ts ofpregnancy. Patient was given labs and all questions and concerns were answered. Follow Up: Patient is to have labs drawn at directed and return to office for initial OB appointment with provider. Patient may call office as needed with any concerns or questions. Nurse Visit Completed by: Suzanna Moses MA documented in this encounter Plan of Treatment Upcoming Encounters Date Type Department Care Team (Late st Contact Info) Description 03/23/2025 11:10 AM EDT Routine [facility] [address] [place] [phone] Sanjeev Casey, [address] [place] [address] Scheduled Orders Name Type Priority Associated Diagnoses Orde r Schedule Type and screen Lab Routine Missed menses , unspecified gestational age ([facility]) Expected: 02/27/2025 (Approximate), Expires: 02/27/2026 ABO/Rh Lab Routine Missed menses , unspecified gestational age ([facility]) Expected: 02/27/2025 (Approximate), Expires: 02/27/2026 CBC and differential Lab Routine Missed menses , unspecified gestational age ([facility]) Ordered: 02/27/2025 Hemoglobin A1c Lab Routine Missed menses , unspecified gestational age ([facility]) Ordered: 02/27/2025 RPR Lab Routine Missed menses , unspecified gestational age ([facility]) Ordered: 02/27/2025 Rubella antibody, IgG Lab Routine Missed menses , unspecified gestational age ([facility]) Ordered: 02/27/2025 Hepatitis B surface antigen Lab Routine Missed menses , unspecified gestational age ([facility]) Ordered: 02/27/2025 Hepatitis C antibody Lab Routine Missed menses , unspecified gestational age ([facility]) Ordered: 02/27/2025 HIV-1 and HIV-2 antibodies Lab Routine Missed menses , unspecified gestational age ([facility]) Ordered: 02/27/2025 Urine culture Microbiology Routine Missed menses Ordered: 02/27/2025 Rapid drug screen, urine Lab Routine , unspecified gestational age ([facility]) Encounter for supervision of normal first in first trimester ([facility]) Expected: 02/27/2025 (Approximate), Expires: 02/27/2026 documented as of this encounter Procedures Procedure Name Priority Date/Time Associated Diagnosis Comments POCT , URINE Routine 02/27/2025 11:11 AM EDT Missed menses POCT URINALYSIS DIPSTICK Routine 02/27/2025 11:11 AM EDT Missed menses documented in this encounter Results * (ABNORMAL) POCT urinalysis dipstick manually resulted (02/27/2025 11:11 AM EDT) Color, UA Yellow Clarity, UA Clear Glucose, UA Negative Negative - 2000(110) ++++ mg/dL Bilirubin, UA Negative Negative - 4(70) +++ mg/dL Ketones, UA Negative Negative - 160(16) ++++ mg/dL Spec Grav, UA 1.020 1 - 1.03 Blood, UA Negative Negative - 50 Enrique/mcL pH, UA 8.5 5 - 9 Protein, UA Trace Negative - 2000(20) ++++ mg/dL Urobilinogen, UA 0.2 0.2 - 12 mg/dL Leukocytes, UA Negative Negative - 500+++ Lizzeth/mcL Nitrite, UA Negative Negative - Positive Urine 02/27/2025 11:1 1 AM EDT us Sanjeev Carmela DO POINT OF CARE TEST ENTER/EDIT OR DERABLES Final Result * (ABNORMAL) POCT , urine manually resulted (02/27/2025 11:11 AM EDT) Preg Test, Ur Positive Negative Urine 02/27/2025 11:1 1 AM EDT us Sanjeev Carmela DO POINT OF CARE TEST ENTER/EDIT OR DERABLES Final Result * US OB transvaginal (02/27/2025 10:30 AM [...] II, MD, PHD at 01-Mar-2025 10:04:28 PM [facility] Procedure Note Dulce Theodore MD - [...] signed by DULCE THEODORE II, MD, PHD [id number] 10:04:28 PM [facility] us Sanjeev Casey DO IMG OB US PROCEDURES Final Resul t documented in this encounter Visit Diagnoses Diagnosis Missed menses Missed menses , unspecified gestational age ([facility]) Encounter for supervision of normal first in first trimester ([facility]) Gastroesophageal reflux in ([facility]) documented in this encounter
--- OUTSIDE RECORDS SUMMARY | 2025-03-13 13:18 | XMS_ITS | Clinical Summary ---
Author Organization [facility] Address [address] [place], [place] [id number] Care Team Providers Care General Manager In Training Name Role Phone Unavailable Primary Care Provider Unavailabl e Medications No known medications Active Problems No known active problems Social History Tobacco Use Types Packs/Day Years Used Date Smoking Tobacco: Never Assessed Area Deprivation Index Answer Date Alcides rded National Score (1-100), lower number is lower ri sk 66 11/13/2022 State Score (1-10), lower number is lower risk N ot on file 11/13/2022 Data from: https://www.neighborhoodatlas.medicine.[facility].edu/. Last address used for calculation [address] [place] [address] 11/13/2022 Comments Unknown Sex and Gender Information Value Date Recorded Sex Assigned at Not on file Legal Sex Female 12:22 PM EST Gender Identity Not on file Sexual Orientation Not on file Last Filed Vital Signs Vital Sign Reading Time Taken Comments Blood Pressure - - Pulse - - Temperature - - Respiratory Rate - - Oxygen Saturation - - Inhaled Oxygen Concentration - - Weight 59 kg (130 lb) 11/14/2022 8:31 AM EDT Height 160 cm (5' 3 ) 11/14/2022 8:31 AM EDT Body Mass Index 23.03 11/14/2022 8:31 AM EDT Plan of Treatment Health Maintenance Due Date Last Done Comments Anxiety Screening 2015 Depression Screening 2015 HIV Screening 2015 Hepatitis C Screening 2015 Cervical Cancer Screening 2018 Covid-19 Vaccine (2023-2 5 season) 2024 Influenza Vaccine (#1) 2025 07/29/2013, 2007 DTaP,Tdap,Td Vaccine (8 - Td or Tdap) 02/13/2026 02/14/2016, 02/12/2009, 04/01/2002, Additional history exists Hepatitis B Vaccine Completed 02/14/2016, 1997, 1997, Additional history exists Insurance [employer] [place]
--- OUTSIDE RECORDS SUMMARY | 2025-03-13 13:18 | XMS_ITS | Clinical Summary ---
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 No 12/31/2023 Within the last year, have y ou been humiliated or emotionally abused in other ways by your partner or ex-partner? No Within the last year, have y ou been kicked, hit, slapped, or otherwise physically hurt by your partner or ex-partner? No 12/31/2023 Within the last year, have y ou been raped or forced to have any kind of sexual activity by your partner or ex-partner? No 12/31/2023 PHQ-2 Answer Date Recorded Patient Health Questionnaire-2 Score 0 12/31/2023 Comments Yes Sex and Gender Information Value Date Recorded Sex Assigned at Not on file Legal Sex Female 4:32 PM EDT Gender Identity Not on file Sexual Orientation Not on file Last Filed Vital Signs Vital Sign Reading Time Taken Comments Blood Pressure - - Pulse - - Temperature - - Respiratory Rate - - Oxygen Saturation - - Inhaled Oxygen Concentration - - Weight 68 kg (150 lb) 04/24/2023 10:54 AM EDT Height 160 cm (5' 3 ) 04/24/2023 10:54 AM EDT Body Mass Index 26.57 04/24/2023 10:54 AM EDT Plan of Treatment Health Maintenance Due Date Last Done Comments Varicella Vaccines (2 of 2 - 2-dose childhood series) 2001 03/02/2000 Depression Screening 2009 Pap Smear 2018 Adult Tetanus 2019 02/12/2009 COVID-19 Vaccine ( season) 2024 Influenza Vaccine (#1) 2025 07/29/2013, 2007 Zoster Vaccines (1 of 2) 2047 03/02/2000 HIB Vaccines Completed 03/02/2000, 01/1998, 1997, Additional history exists IPV Vaccines Completed 04/01/2002, 02/03, 1997, Additional history exists HPV Vaccines Completed 02/12/2009, 10/05, 08/13/2008 Meningococcal Vaccine Aged Out 02/12/2009 No lissa haley eligible based on patient's age to complete this topic Meningococcal B Vaccine Aged Out No l onger eligible based on patient's age to complete this topic Pneumococcal Vaccine: Pediatrics (0 to 5 Years) and At-Risk Patients (6 to 64 Years) Aged Out No longer eligible based on patient's age to complete this topic Rotavirus Vaccines Aged Out No longer eligible based on patient's age to complete this topic Insurance [employer] Care Teams Chief Resource Officer Relationship Specialty Start Date End Date None, Provided, PCP - General 04/24/23
--- OUTSIDE RECORDS SUMMARY | 2025-03-13 13:18 | XMS_ITS | Encounter Summary ---
Demographics Address [address] [place] [address] Home Phone Mobile Phone Email Address Preferred Language en Marital Status Unmarried Adventism Affiliation Unknown Race White Ethnic Group Not or Lati no Author Organization [facility] Address [address] [place] [address] Care Team Providers Care Automotive Engineering Technician Name Role Phone Unavailable Primary Care Provider Unavailabl e Encounter Details Date Type Department Care Team (Late st Contact Info) Description 05/18/2023 Clinisync Result Encounter [facility] External Department Unsolicited Mamie Adler PA [address] [place] [address] Social History Tobacco Use Types Packs/Day Years Used Date Smoking Tobacco: Never Smokeless Tobacco: Never Alcohol Use Standard Drinks/Week Comments Never 0 (1 standard drink = 0.6 oz pure alcohol) Alcohol: 1 or 2 drinks on typical day/monthly or less. Comments Yes Sex and Gender Information Value Date Recorded Sex Assigned at Not on file Legal Sex Female 7:27 PM EDT Gender Identity Female 11/15/2022 7:27 PM EDT Sexual Orientation Not on file COVID-19 Exposure Response Date Recorded In the last 10 days, have yo u been in contact with someone who was confirmed or suspected to have Coronavirus/COVID-19? No / Unsure 05/14/2023 9:56 AM EDT documented as of this encounter Plan of Treatment Upcoming Encounters Date Type Department Care Team (Late st Contact Info) Description 03/23/2025 11:10 AM EDT Routine [facility] [address] [facility] [place] [address] Sanjeev Casey DO [address] [facility] [place] [address] documented as of this encounter Procedures Procedure Name Priority Date/Time Associated Diagnosis Comments US OB CERVICAL LENGTH 05/18/2023 6:14 PM EDT documented in this encounter Results * US OB CERVICAL LENGTH (05/18/2023 6:14 PM EDT) Anatomical Region Laterality Modality Other 05/18/2023 6:14 PM EDT Narrative 05/18/2023 6:14 PM EDT [address] [address] Ultrasound Report Signed Patient: PRIYANKA HARDIN MR#: [id number] : 1995 Acct:[id number] Age/Sex: 28 / F ADM Date: 05/18/23 Loc: US Attending Dr: Mamie Adler Ordering Physician: Mamie Adler Date of Service: 05/18/23 Procedure(s): US OB cervical length Accession Number(s): [id number] cc: Mamie Adler; [facility] [address] [address] Patient Name: PRIYANKA HARDIN MRN: [id number] date: 1995 Sex: F Assigned Patient Location: US Current Patient Location: US Accession/Order Number: [id number] Exam Date: 05/18/2023 10:04 Report Date: 05/18/2023 18:14 At the request of: MAMIE ADLER Procedure: US OB cervical length EXAMINATION: US OB anatomy, US OB cervical length HISTORY: Second trimester Z34.92 COMPARISON: No relevant comparison available. TECHNIQUE: Transabdominal sonographic examination was performed for obstetrical and evaluation. FINDINGS: Number: 1 Heart Rate: 146.7 bpm H.B. /min Amniotic Fluid Volume: position: Cephalic presentation, longitudinal lie Placental Location: ANTERIOR, grade 0. Placental edge is 4.2 cm from the internal os Cervix Length: 4.4 cm , closed Normal anatomy: Lateral ventricles, cerebellum, posterior fossa, nose, lips, orbits, four-chamber heart, RVOT, LVOT, diaphragm, stomach, kidneys, abdominal cord insertion, bladder, umbilical arteries, three-vessel cord, spine, extremities BIOMETRY: BPD: 5.6 cm 23 weeks 1 days , 40% HC: 21.8 cm 23 weeks 6 days, 59% AC: 20.4 cm 25 weeks 0 days, 88% FL: 4.2 cm 23 weeks 4 days, 47% EFW:676.5 grams; 1 lb. 8 oz., 86% FL/AC: 20.4 FL/BPD: 74.1 HC/AC: 1.1 GESTATIONAL AGE: Age by EDC: 23 weeks 2 days Age by current US: 23 weeks 6 days HOLDEN by current US: 09/08/2023 HOLDEN by EDC: 09/12/2023 US/US OB cervical length IMPRESSION: Normal anatomy scan Closed cervix measuring 4.4 cm *Reference: AIUM Practice Guideline for the performance of Obstetric Ultrasound Examinations, June 03, 2007. Electronically authenticated by: RONYN NARANJO Date: 05/18/2023 18:14 Dictated By: Ronny Naranjo M.D. Signed By: 05/18/231816 DD/ 13 TD/TT: Infection Control Practitioner: Procedure Note Radiology, Radiologist, MD - 05/25/2023 [place] [address] Ultrasound Report Signed Patient: PRIYANKA HARDIN MMR#: [id number] : 1995Acct:[id number] Age/Sex: 28 / FADM Date: 05/18/23 Loc: US Attending Dr: Mamie Adler Ordering Physician: Mamie Adler Date of Service: 05/18/23 Procedure(s): US OB cervical length Accession Number(s): [id number] cc: Mamie Adler; [facility] The [place] [id number] Patient Name: PRIYANKA HARDIN MRN: [id number] date: 1995 Sex: F Assigned Patient Location: US Current Patient Location: US Accession/Order Number: [id number] Exam Date: 05/18/2023 10:04 Report Date: 05/18/2023 18:14 At the request of: MAMIE ADLER Procedure: US OB cervical length EXAMINATION: US OB anatomy, US OB cervical length HISTORY: Second trimester Z34.92 COMPARISON: No relevant comparison available. TECHNIQUE: Transabdominal sonographic examination was performed for obstetrical and evaluation. FINDINGS: Number: 1 Heart Rate: 146.7 bpm H.B. /min Amniotic Fluid Volume: position: Cephalic presentation, longitudinal lie Placental Location: ANTERIOR, grade 0. Placental edge is 4.2 cm from the internal os Cervix Length: 4.4 cm , closed Normal anatomy: Lateral ventricles, cerebellum, posterior fossa, nose,lips, orbits, four-chamber heart, RVOT, LVOT, diaphragm, stomach, kidneys,abdominal cord insertion, bladder, umbilical arteries, three-vessel cord, spine, extremities BIOMETRY: BPD: 5.6 cm 23 weeks 1 days , 40% HC: 21.8 cm 23 weeks 6 days, 59% AC: 20.4 cm 25 weeks 0 days, 88% FL: 4.2 cm 23 weeks 4 days, 47% EFW:676.5 grams; 1 lb. 8 oz., 86% FL/AC: 20.4 FL/BPD: 74.1 HC/AC: 1.1 GESTATIONAL AGE: Age by EDC: 23 weeks 2 days Age by current US: 23 weeks 6 days HOLDEN by current US: 09/08/2023 HOLDEN by EDC: 09/12/2023 US/US OB cervical length IMPRESSION: Normal anatomy scan Closed cervix measuring 4.4 cm *Reference: AIUM Practice Guideline for the performance of Obstetric Ultrasound Examinations, June 03, 2007. Electronically authenticated by: RONNY NARANJO Date: 05/18/2023 18:14 Dictated By: Ronny Naranjo M.D. Signed By:05/18/231816 DD/ 13 TD/TT: Infection Control Practitioner: us Mamie OSB[facility]NE [facility] Final Result documented in this encounter Visit Diagnoses Not on filedocumented in this encounter
--- OUTSIDE RECORDS SUMMARY | 2025-03-13 13:18 | XMS_ITS | Encounter Summary ---
Demographics Address [address] [place] [address] Home Phone Mobile Phone Email Address .MedAdherence Preferred Language en Marital Status Unmarried Muslim Affiliation Unknown Race White Ethnic Group Not or Lati no Author Organization [facility] Address [address] [place] [address] Care Team Providers Care Medical Receptionist Medical Assistant Name Role Phone Unavailable Primary Care Provider Unavailabl e Encounter Details Date Type Department Care Team (Late st Contact Info) Description 04/12/2023 Abstract [facility] OB [address] [facility] [place] [address] Mamie Pascual PA [address] [facility] [address] [place], [facility] Social History Tobacco Use Types Packs/Day Years [...] AM EDT Routine [facility] BCP OB [address] [facility] [place] [address] Sanjeev Casey DO [address] [place], [place] [address] [address] [place], [facility] documented as of this encounter Visit Diagnoses Not on filedocumented in this encounter
--- OUTSIDE RECORDS SUMMARY | 2025-03-13 13:18 | XMS_ITS | Encounter Summary ---
Demographics Address [address] [place] [address] Home Phone Mobile Phone Email Address Preferred Language en Marital Status Unmarried Restorationism Affiliation Unknown Race White Ethnic Group Not or Lati no Author Organization [facility] Address [address] [place] [address] Care Team Providers Care Angiography Technologist Name Role Phone Unavailable Primary Care Provider Unavailabl e Encounter Details Date Type Department Care Team (Late st Contact Info) Description 05/18/2023 Clinisync Result Encounter [facility] External Department Unsolicited Mamie Adler PA [address] [place] [address] Social History Tobacco Use Types Packs/Day Years [...] AM EDT Routine [facility] BCP OB [address] [facility] [place] [address] Sanjeev Casey DO [address] [facility] [place] [address] documented as of this encounter Procedures Procedure Name Priority Date/Time Associated Diagnosis Comments US OB ANATOMY 05/18/2023 6:14 PM EDT documented in this encounter Results * US OB ANATOMY (05/18/2023 6:14 PM EDT) Anatomical Region Laterality Modality Other 05/18/2023 6:14 PM EDT Narrative 05/18/2023 6:14 PM EDT The [address] [address] Ultrasound Report Signed Patient: PRIYANKA HARDIN MR#: [id number] : 1995 Acct:[id number] Age/Sex: 28 / F ADM Date: 05/18/23 Loc: US Attending Dr: Mamie Adler Ordering Physician: Mamie Adler Date of Service: 05/18/23 Procedure(s): US OB anatomy Accession Number(s): [id number] cc: Mamie Adler; [facility] The [address] [address] Patient Name: PRIYANKA HARDIN MRN: [id number] date: 1995 Sex: F Assigned Patient Location: US Current Patient Location: US Accession/Order Number: [id number] Exam Date: 05/18/2023 10:04 Report Date: 05/18/2023 18:14 At the request of: MAMIE ADLER Procedure: US OB anatomy EXAMINATION: US OB anatomy, US OB cervical [...] 09/08/2023 HOLDEN by EDC: 09/12/2023 US/US OB anatomy IMPRESSION: Normal anatomy scan Closed cervix measuring 4.4 cm *Reference: AIUM Practice Guideline for the performance of Obstetric Ultrasound Examinations, June 03, 2007. Electronically authenticated by: RONNY NARANJO Date: 05/18/2023 18:14 Dictated By: Ronny Naranjo M.D. Signed By: 05/18/231816 DD/ 13 TD/TT: Procedure Tech: Procedure Note Radiology, Radiologist, MD - 05/25/2023 [place] [address] Ultrasound Report Signed Patient: PRIYANKA HARDIN MMR#: [id number] : 1995Acct:[id number] Age/Sex: 28 / FADM Date: 05/18/23 Loc: US Attending Dr: Mamie Adler Ordering Physician: Mamie Adler Date of Service: 05/18/23 Procedure(s): US OB anatomy Accession Number(s): [id number] cc: Mamie Adler; [facility] The [place] [id number] Patient Name: PRIYANKA HARDIN MRN: [id number] date: 1995 Sex: F Assigned Patient Location: US Current Patient Location: US Accession/Order Number: [id number] Exam Date: 05/18/2023 10:04 Report Date: 05/18/2023 18:14 At the request of: MAMIE ADLER Procedure: US OB anatomy EXAMINATION: US OB anatomy, US OB cervical [...] 09/08/2023 HOLDEN by EDC: 09/12/2023 US/US OB anatomy IMPRESSION: Normal anatomy scan Closed cervix measuring 4.4 cm *Reference: AIUM Practice Guideline for the performance of Obstetric Ultrasound Examinations, June 03, 2007. Electronically authenticated by: RONNY NARANJO Date: 05/18/2023 18:14 Dictated By: Ronny Naranjo M.D. Signed By:05/18/231816 DD/ 13 TD/TT: Procedure Tech: us Mamie [facility] Final Result documented in this encounter Visit Diagnoses Not on filedocumented in this encounter
--- OUTSIDE RECORDS SUMMARY | 2025-03-13 13:19 | XMS_ITS | Encounter Summary ---
Demographics Address [address] [facility] [place] [address] Home Phone Mobile Phone Email Address Preferred Language en Marital Status Unmarried Muslim Affiliation Unknown Race White Ethnic Group Not or Lati no Author Organization [facility] Address [address] [place] [address] Care Team Providers Care Sociology Faculty Member Name Role Phone Unavailable Primary Care Provider Unavailabl e Encounter Details Date Type Department Care Team (Late st Contact Info) Description 08/17/2023 Clinisync Result Encounter [facility] External Department Unsolicited Sanjeev Casey, DO [address] [facility] [place] [address] Social History Tobacco Use Types Packs/Day Years [...] more drinks on one occasion? Never 07/13/2023 Comments Yes Sex and Gender Information Value Date Recorded Sex Assigned at Not on file Legal Sex Female 7:27 PM EDT Gender Identity Female 11/15/2022 7:27 PM EDT Sexual Orientation Not on file documented as of this encounter Plan of Treatment Upcoming Encounters Date Type Department Care Team (Late st Contact Info) Description 03/23/2025 11:10 AM EDT Routine [facility] BCP OB [address] [facility] [place] [address] Sanjeev Casey DO [address] [facility] [place] [address] documented as of this encounter Procedures Procedure Name Priority Date/Time Associated Diagnosis Comments US OB GROWTH 08/17/2023 12:08 PM EST documented in this encounter Results * US OB GROWTH (08/17/2023 12:08 PM EST) Anatomical Region Laterality Modality Other 08/17/2023 12:0 8 PM EST Narrative 08/17/2023 12:11 PM EST [address] [address] Ultrasound Report Signed Patient: PRIYANKA HARDIN MR#: [id number] : 1995 Acct:[id number] Age/Sex: 28 / F ADM Date: 08/17/23 Loc: US Attending Dr: Sanjeev Casey D.O. Ordering Physician: Sanjeev Casey D.O. Date of Service: 08/17/23 Procedure(s): US OB growth Accession Number(s): [id number] cc: [facility] ; Sanjeev Casey D.O. [address] [address] Patient Name: PRIYANKA HARDIN MRN: [id number] date: 1995 Sex: F Assigned Patient Location: US Current Patient Location: US Accession/Order Number: [id number] Exam Date: 08/17/2023 11:15 Report Date: 08/17/2023 12:08 At the request of: SANJEEV CASEY Procedure: US OB growth EXAMINATION: US OB growth HISTORY: Size Inconsistent With Dates COMPARISON: No relevant comparison available. TECHNIQUE: Transabdominal sonographic examination was performed for obstetrical and evaluation. FINDINGS: Number: 1 Heart Rate: 135.7 bpm H.B. /min position: Cephalic presentation, longitudinal lie Amniotic Fluid Volume: 10.2 cm. Largest fluid pocket 5.4 cm Placental Location: Blank BIOMETRY: BPD: 8.8 cm 35 weeks 5 days , 43% HC: 33.4 cm 38 weeks 1 days, 66% AC: 33.8 cm 37 weeks 5 days, 92% FL: 7.2 cm 36 weeks 5 days , 59% EFW:3171.1 grams; 7 lbs. 0 oz., 79% FL/AC: 21.2 FL/BPD: 81.2 HC/AC: 1.0 GESTATIONAL AGE: Age by EDC: 36 weeks 2 days Age by current US: 37 weeks 1 days HOLDEN by current US: 09/06/2023 HOLDEN by EDC: 09/12/2023 US/US OB growth IMPRESSION: Normal interval growth *Reference: AIUM Practice Guideline for the performance of Obstetric Ultrasound Examinations, June 03, 2007. Electronically authenticated by: RONNY NARANJO Date: 08/17/2023 12:08 Dictated By: Ronny Naranjo M.D. Signed By: 08/17/23 1211 DD/ 1208 TD/TT: Precision Aircraft Systems Assembler: Procedure Note Radiology, Radiologist, MD - 08/17/2023 [place] [address] Ultrasound Report Signed Patient: PRIYANKA HARDIN MMR#: [id number] : 1995Acct:[id number] Age/Sex: 28 / FADM Date: 08/17/23 Loc: US Attending Dr: Sanjeev Casey D.O. Ordering Physician: Sanjeev Casey D.O. Date of Service: 08/17/23 Procedure(s): US OB growth Accession Number(s): [id number] cc: [facility] ; Sanjeev Casey D.O. The [address] [address] Patient Name: PRIYANKA HARDIN MRN: [id number] date: 1995 Sex: F Assigned Patient Location: US Current Patient Location: US Accession/Order Number: [id number] Exam Date: 08/17/2023 11:15 Report Date: 08/17/2023 12:08 At the request of: SANJEEV CASEY Procedure: US OB growth EXAMINATION: US OB growth HISTORY: Size Inconsistent With Dates COMPARISON: No relevant comparison available. TECHNIQUE: Transabdominal sonographic examination was performed for obstetrical and evaluation. FINDINGS: Number: 1 Heart Rate: 135.7 bpm H.B. /min position: Cephalic presentation, longitudinal lie Amniotic Fluid Volume: 10.2 cm. Largest fluid pocket 5.4 cm Placental Location: Blank BIOMETRY: BPD: 8.8 cm 35 weeks 5 days , 43% HC: 33.4 cm 38 weeks 1 days, 66% AC: 33.8 cm 37 weeks 5 days, 92% FL: 7.2 cm 36 weeks 5 days , 59% EFW:3171.1 grams; 7 lbs. 0 oz., 79% FL/AC: 21.2 FL/BPD: 81.2 HC/AC: 1.0 GESTATIONAL AGE: Age by EDC: 36 weeks 2 days Age by current US: 37 weeks 1 days HOLDEN by current US: 09/06/2023 HOLDEN by EDC: 09/12/2023 US/US OB growth IMPRESSION: Normal interval growth *Reference: AIUM Practice Guideline for the performance of Obstetric Ultrasound Examinations, June 03, 2007. Electronically authenticated by: RONNY NARANJO Date: 08/17/2023 12:08 Dictated By: Ronny Naranjo M.D. Signed By:08/17/23 1211 DD/ 1208 TD/TT: [employer] Assembler: us Sanjeev Casey DO [facility] Final Result documented in this encounter Visit Diagnoses Not on filedocumented in this encounter
--- OUTSIDE RECORDS SUMMARY | 2025-03-13 13:19 | XMS_ITS | Encounter Summary ---
Demographics Address [address] [place] [address] Home Phone Mobile Phone Email Address Preferred Language en Marital Status Unmarried Nondenominational Affiliation Unknown Race White Ethnic Group Not or Lati no Author Organization [facility] Address [address] [facility] [place] [address] Care Team Providers Care Asset Card Clerk Name Role Phone Unavailable Primary Care Provider Unavailabl e Encounter Details Date Type Department Care Team (Late Contact Info) Description 09/09/2023 Abstract [facility] OB [address] [place] [id number] Sanjeev Casey, DO [address] [facility] [place] [address] Social History Tobacco Use Types Packs/Day Years [...] [address] [facility] [place] [address] Sanjeev Casey, [address] [place] [address] [address] [place], [place] [id number] documented as of this encounter Visit Diagnoses Not on filedocumented in this encounter
--- OUTSIDE RECORDS SUMMARY | 2025-03-13 13:19 | XMS_ITS | Clinical Summary ---
Demographics Address [address] [place] [address] Home Phone Mobile Phone Email Address Preferred Language en Marital Status Unmarried Tenriism Affiliation Unknown Race White Ethnic Group Not or Lati no Author Organization [facility] Address [address] [place] [address] Care Team Providers Care Saw Offbearer Name Role Phone Unavailable Primary Care Provider Unavailabl e Allergies No known active allergies Medications Ojdplijm-Twq-Vj- FA (, w/Iron & FA,) 27-0.8 MG tablet 1 (one) time each day at the same time. 01/01/2023 Active famotidine (Pepcid) 20 MG tabletIndication s:Gastroesophage al Reflux Disease,Heartbur n Take 1 tablet (20 mg) by mouth Daily 30 tablet 3 02/27/2025 Active Encounters Date Type Department Care Team Description 02/27/2025 10:30 AM EDT Initial [facility] BCP OB [address] [place] [address] GA: 9w2d 02/27/2025 10:00 AM EDT Ancillary Procedure [facility] OB [address] [place] [address] Missed menses from Last 3 Months Family History Medical History Relation Name Comments Mental illness Father Cancer Maternal Grandfather Diabetes Maternal Grandfather Mental illness Mother Mental illness Sister 1 Mental illness Sister 2 Relation Name Status Comments Brother Alive Father Alive Maternal Grandfather Mother Alive Sister 1 Alive Sister 2 Alive Social History Tobacco Use Types Packs/Day Years Used Date Smoking Tobacco: Never Smokeless Tobacco: Never Tobacco Cessation:Counseling Given: No Alcohol Use Standard Drinks/Week Comments Never 0 [...] PM EDT Sexual Orientation Not on file Last Filed Vital Signs Vital Sign Reading Time Taken Comments Blood Pressure 116/70 02/27/2025 11:13 AM EDT Pulse - - Temperature - - Respiratory Rate - - Oxygen Saturation - - Inhaled Oxygen Concentration - - Weight 61.7 kg (136 lb 2 oz) 02/27/2025 11:13 AM EDT Height 160 cm (5' 3 ) 02/02/2023 9:28 AM EDT Body Mass Index 24.11 02/02/2023 9:28 AM EDT Plan of Treatment Upcoming Encounters Date Type Department Care Team (Late st Contact Info) Description 03/23/2025 11:10 AM EDT Routine [facility] BCP OB [address] [facility] [place] [address] Sanjeev Casey, DO [address] [place] [address] [place] [address] Procedures Procedure Name Priority Date/Time Associated Diagnosis Comments POCT URINALYSIS DIPSTICK Routine 02/27/2025 11:11 AM EDT Missed menses POCT , URINE Routine 02/27/2025 11:11 AM EDT Missed menses US OB TRANSVAGINAL Routine 02/27/2025 10 :30 AM EDT Missed menses from Last 3 Months Results * (ABNORMAL) POCT , urine manually resulted (02/27/2025 11:11 AM EDT) Preg Test, Ur Positive Negative Urine 02/27/2025 11:1 1 AM EDT us Sanjeev Carmela DO POINT OF CARE TEST ENTER/EDIT OR DERABLES Final Result * (ABNORMAL) POCT urinalysis dipstick manually resulted [...] Positive Urine 02/27/2025 11:1 1 AM EDT [facility] DO POINT OF CARE TEST ENTER/EDIT OR [...] bilateral ovaries. Interpreted by: Electronically signed by UDLCE THEODORE II, MD, PHD at 01-Mar-2025 10:04:28 PM [facility] Procedure Note Dulce Theodore MD - [...] signed by DULCE THEODORE II, MD, PHD [id number] 10:04:28 PM [facility] us Sanjeev Carmela DO IMG OB US PROCEDURES Final Resul t from Last 3 Months Insurance * Guarantor: Priyanka Shukla Account Type Relation to Patient Date of Phone Billing Address Personal/Family Self 1995 [address] [place] [address] [employer] [place]
--- OUTSIDE RECORDS SUMMARY | 2025-03-13 13:19 | XMS_ITS | Patient Health Record ---
Author Organization [facility] Address [address] [place] [address] Care Team Providers Care Decision Science Analyst Name Role Phone Hao Moreno Primary Care Provider [phone] Allergies No Known Allergies Reason For Referral No Information Medications Medication SIG (Take, Route, Frequency, Duration) Notes Start Date End Date Status Cymbalta 30 MG 1 capsule Orally Onc e a day; Duration: 30 day(s) Not-Carloz ing hydrOXYzine HCl 25 MG 1 tablet as needed Orally twice a day (bid); Duration: 30 day(s) 07/24/2022 Not-Taking traZODone HCl 50 MG 1 tablet Orally Once a day; Duration: 30 day(s) Not-Carloz ing Immunizations Vaccine Route Administration Date Status Comme nts DTap (DAPTACEL) Unknown 1997 Administered DTap (DAPTACEL) Unknown 1997 Administered DTap (DAPTACEL) Unknown 1997 Administered DTap (DAPTACEL) Unknown 03/02/2000 Administered DTap (DAPTACEL) Unknown 04/01/2002 Administered Hep A peds/adol Unknown 03/20/2007 Administered Hep B Peds/Adol Unknown 1997 Administered Hep B Peds/Adol Unknown 1997 Administered Hepatitis A ADULT Unknown 08/13/2008 Administered Hepatitis B ADULT Unknown 1997 Administered Hib (ACTHIB) Unknown 1997 Administered Hib (ACTHIB) Unknown 1997 Administered Hib (ACTHIB) Unknown 1997 Administered Hib (ACTHIB) Unknown 03/02/2000 Administered HPV Unknown 08/13/2008 Administered HPV Unknown 10/30/2008 Administered HPV Unknown 02/12/2009 Administered Influenza 3+ PRIVATE Unknown 08/13/2008 Administered Influenza 3+ PRIVATE Unknown 07/29/2013 Administered Meningococcal (MENACTRA) Unknown 02/12/2009 Administere d MMR Unknown 03/02/2000 Administered MMR Unknown 04/01/2002 Administered Polio, IPV Unknown 1997 Administered Polio, IPV Unknown 1997 Administered Polio, IPV Unknown 03/02/2000 Administered Polio, IPV Unknown 04/01/2002 Administered TDAP Unknown 02/12/2009 Administered TDAP Unknown 02/25/2024 Administered Varicella (VARIVAX) Unknown 03/02/2000 Administered Social History Tobacco Use: Social History Observation Description Date Details (start date - stop date) Never Smoker NA - NA Tobacco Screen: Question Answer Notes Are you a: never smoker Sexual Hx: Question Answer Notes Had sex in the last 12 months (vaginal, oral, or anal)? Yes with Men only Use protection? No Prevention Strategies discussed: Other Have you ever had an STD? Yes Chlamydia? Yes Alcohol Screening: Question Answer Notes Did you have a drink contain ing alcohol in the past year? Yes How often did you have a dri nk containing alcohol in the past year? Two to four times a month (2 points) How many drinks did you have on a typical day when you were drinking in the past year? 1 or 2 (0 points) Points 2 Interpretation Negative Depression Screening (PHQ-9): Question Answer Notes Little interest or pleasure in doing things Not at all Feeling down, depressed, or hopeless Not at all Trouble falling or staying asleep, or sleeping t oo much Not at all Feeling tired or having little energy Not at all Poor appetite or overeating Not at all Feeling bad about yourself-o r that you are a failure or have let yourself or your family down Not at all Trouble concentrating on thi ngs, such as reading the newspaper or watching television Not at all Moving or speaking so slowly that other people could have noticed. Or the opposite being so fidgety or restless that you have been moving around a lot more than usual Not at all Thoughts that you would be b adam off , or of hurting yourself in some way Not at all Total Score 0 Tobacco Control (Standard) Question Answer Notes Tobacco use: Nonsmoker Problems Problem Type SNOMED Code ICD Code Onset Dates Problem Status W/U Status Risk Notes Problem Anxiety (76187128) Anxiety (F41.9) Active confirmed Problem Chronic fatigue syndrome (08195098) Chronic fatigue (R53.82) Active confirmed Problem Episodic mood disorder (55070447146018) Episodic mood disorder (F39) Active confirmed Problem Posttraumatic stress disorder (87245470) Post traumatic stress disorder (PTSD) (F43.10) Active confirmed Problem Body mass index 20-24 - normal (681476355) BMI 20.0-20.9, adult (Z68.20) Active confirmed Plan Of Treatment Pending Test Test Name Order Date CBC w/ Auto Diff 02/28/2024 CMP 02/28/2024 Iron 02/28/2024 Insurance Providers Payer Name Payer Address Payer Phone Subscriber Number Group Number Insured Name Patient Relationship to Insured Coverage Start Date Coverage End Date [employer] [place] Medicaid [address] [address] [place] [address] [id number] ROSALVA HARDIN Self - patient is the insured 4 [employer] [address] [place] [address] [phone] [id number] ROSALVA HARDIN Self - patient is the insured 4 z [employer] E-termed 10/03/22 [address] [place] [address] [phone] [id number] ROSALVA HARDIN Self - patient is the insured 0 3 [facility] MEDICAID CFC after [employer] T-termed 10/03/22 [address] [place] [address] [id number] ROSALVA HARDIN Self - patient is the insured 2 3 [employer]IC[employer] D CFC after [employer] 10/03/22 [address] [place] [address] [id number] ROSALVA HARDIN Self - patient is the insured 2 3 [employer]OU NT [employer] E-termed 10/03/22 [address] [place] [address] [id number] ROSALVA HARDIN Self - patient is the insured 2 3 zDENTAL DQ [employer] T[employer]ter[employer] 10/03/22 [address] [place] [address] [id number] ROSALVA HARDIN Self - patient is the insured 2 3 [employer] MEDICAID CFC after [employer] 10/03/22 [address] [place] [address] [id number] ROSALVA HARDIN Self - patient is the insured 2 3 [facility] [address] [place] [address] [id number] ROSALVA HARDIN Self - patient is the insured 3 3 [facility] [address] [place] [address] [id number] ROSALVA HARDIN Self - patient is the insured 3 3 [employer] [place] Medicaid [address] [place] [address] [id number] ROSALVA HARDIN Self - patient is the insured 3 3 [facility] [address] [place] [address] [phone] [id number] ROSALVA HARDIN Self - patient is the insured 3 3 [facility] MED[place]ID [place] [address] [place] [address] [phone] [id number] ROSALVA HARDIN Self - patient is the insured 4 4 Medical (General) History Medical History History ICD Code Anxiety Miscarriage Surgical History Surgery Date(Month/Year) D&C 07/2021 09/2023 Hospitalization History Reason Date(Month/Year) Child
[2025-03-13 14:43] LABS: Hematocrit 34.7 % (36.0-48.0); Hemoglobin 12.4 g/dL (12.0-16.0); Immature Granulocytes Abs Auto 0.04 10^3/uL (0.00-0.03); Immature Granulocytes Pct Auto 0.5 % (0.0-0.5); Lymphocytes Absolute Auto 1.6 10^3/uL (1.2-3.8); Mean Corpuscular HGB Conc 35.7 g/dL (29.9-35.2); Mean Corpuscular Hemoglobin 31.2 pg (26.7-34.0); Mean Corpuscular Volume 87.2 fL (81.0-99.0); Platelet Count 279 10^3/uL (150-450); Red Blood Count 3.98 10^6/uL (4.20-5.40); White Blood Count 8.8 10^3/uL (4.0-11.0)
[2025-03-13 16:24] LABS: Cannabinoid Screen Urine NEGATIVE (NEGATIVE); Methamphetamines Screen Urine NEGATIVE (NEGATIVE); Tricyclic Antidepressant Urine NEGATIVE (NEGATIVE)
[2025-03-14 08:16] LABS: Rubella Antibodies, IgG 2.23 index (Immune >0.99)
[2025-03-14 13:09] LABS: Rapid Plasma Reagin, Quant Non Reactive titer (NonRea<1:1)
== END 2025-03-13 13:14 | disposition home or self-care (01) ==
LOC: LAB 13:17
PROVIDERS: Visit Provider Obstetrics & Gynecology
DX: Z34.01 Encounter for supervision of normal first pregnancy, first trimester (principal)
CPT/HCPCS: 36415; 80307; 83036; 85025; 86592; 86762; 86803; 86850; 86900; 86901; 87086; 87340; 87389

== ENCOUNTER 2025-04-20 15:21 | Outpatient (REF) | payer MEDICAID, SELFPAY ==
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
--- OUTSIDE RECORDS SUMMARY | 2025-04-20 15:25 | XMS_ITS | Patient Health Record ---
Author Organization [employer] [facility] Address [address] [place] [address] Care Team Providers Care Car Mechanic Name Role Phone Hao Moreno Primary Care Provider Allergies No Known Allergies Reason For Referral [...] Vaccine Route Administration Date Status Comme nts Varicella (VARIVAX) Unknown 03/02/2000 Administered TDAP Unknown 02/12/2009 Administered TDAP Unknown 02/25/2024 Administered Polio, IPV Unknown 1997 Administered Polio, IPV Unknown 1997 Administered Polio, IPV Unknown 03/02/2000 Administered Polio, IPV Unknown 04/01/2002 Administered MMR Unknown 03/02/2000 Administered MMR Unknown 04/01/2002 Administered Meningococcal (MENACTRA) Unknown 02/12/2009 Administere d Influenza 3+ PRIVATE Unknown 08/13/2008 Administered Influenza 3+ PRIVATE Unknown 07/29/2013 Administered HPV Unknown 08/13/2008 Administered HPV Unknown 10/30/2008 Administered HPV Unknown 02/12/2009 Administered Hib (ACTHIB) Unknown 1997 Administered Hib (ACTHIB) Unknown 1997 Administered Hib (ACTHIB) Unknown 1997 Administered Hib (ACTHIB) Unknown 03/02/2000 Administered Hepatitis B ADULT Unknown 1997 Administered Hepatitis A ADULT Unknown 08/13/2008 Administered Hep B Peds/Adol Unknown 1997 Administered Hep B Peds/Adol Unknown 1997 Administered Hep A peds/adol Unknown 03/20/2007 Administered DTap (DAPTACEL) Unknown 1997 Administered DTap (DAPTACEL) Unknown 1997 Administered DTap (DAPTACEL) Unknown 1997 Administered DTap (DAPTACEL) Unknown 03/02/2000 Administered DTap (DAPTACEL) Unknown 04/01/2002 Administered Social History Tobacco Use: Social History [...] Status W/U Status Risk Notes Problem Anxiety (26661910) Anxiety (F41.9) Active confirmed Problem Chronic fatigue syndrome (20975069) Chronic fatigue (R53.82) Active confirmed Problem Episodic mood disorder (88650849174363) Episodic mood disorder (F39) Active confirmed Problem Posttraumatic stress disorder (55501545) Post traumatic stress disorder (PTSD) (F43.10) Active confirmed Problem Body mass index 20-24 - normal (615438885) BMI 20.0-20.9, adult (Z68.20) Active confirmed Plan Of Treatment Pending Test Test Name Order Date CBC w/ Auto Diff 02/28/2024 CMP 02/28/2024 Iron 02/28/2024 Insurance Providers Payer Name Payer Address Payer Phone Subscriber Number Group Number Insured Name Patient Relationship to Insured Coverage Start Date Coverage End Date [employer] [place] Medicaid [address] [address] [place] [address] [id number] ROSALVA HARDIN Self - patient is the insured 4 [employer] [address] [place] [address] [id number] ROSALVA HARDIN Self - patient is the insured 4 z [employer] E-termed [address] [place] [address] [id number] ROSALVA HARDIN Self - patient is the insured 0 3 [facility] MEDICAID CFC after [employer] T-termed [address] [place] [address] [id number] ROSALVA HARDIN Self - patient is the insured 2 3 zMEDIC[employer] D CFC after [employer] T[employer]ter[employer] [address] [place] [address] [id number] ROSALVA HARDIN Self - patient is the insured 2 3 [employer]OU NT [employer] E-termed [address] [place] [address] [id number] ROSALVA HARDIN Self - patient is the insured 2 3 zDENTAL DQ [employer] T-termed [address] [place] [address] [id number] ROSALVA HARDIN Self - patient is the insured 2 3 [employer] MEDICAID CFC after [employer] [address] [place] [address] [id number] ROSALVA HARDIN Self - patient is the insured 2 3 [facility] [address] [place] [address] [id number] ROSALVA HARDIN Self - patient is the insured 3 3 [facility] [address] [place] [address] [id number] ROSALVA HARDIN Self - patient is the insured 3 3 [employer] [place] Medicaid [address] [place] [address] [id number] ROSALVA HARDIN Self - patient is the insured 3 3 [facility] [address] [place] [address] [id number] ROSALVA HARDIN Self - patient is the insured 3 3 [facility] MED[place]ID [place] [address] [place] [address] [id number] ROSALVA HARDIN Self - patient is the insured 4 4 Medical (General) History Medical History History ICD Code Anxiety Miscarriage Surgical History Surgery Date(Month/Year) D&C 07/2021 09/2023 Hospitalization History Reason Date(Month/Year) Child
--- OUTSIDE RECORDS SUMMARY | 2025-04-20 15:25 | XMS_ITS ---
Author Organization [facility] Source Produ ction (ClinicalSummary Clone) Address Unknown Care Team Providers Care Panel Machine Operator Name Role Phone Unavailable Primary Care Physician Unavailab le Results * [UNITY] ANEUPLOIDY NIPT Performed by: Placed Component Value Range Date Fraction 4.2% 03/19/2025 03 :03 am UTC Rh(D) NIPT RhD DETECTED 03/19/2025 03:0 3 am UTC Sex Chromosome Aneuploidy NOT DETECTED 03:03 am UTC Monosomy X LOW RISK <1 in 10,000 2024 03:03 am UTC Trisomy 13 LOW RISK <1 in 10,000 2024 03:03 am UTC Trisomy 18 LOW RISK <1 in 10,000 2024 03:03 am UTC Trisomy 21 LOW RISK <1 in 10,000 2024 03:03 am UTC Sex MALE 03/19/2025 03:0 3 am UTC Gestation SALTER 03/19/20 03:03 am UTC For detailed report, see PDF See PDF 03/19/2025 03:03 am UTC 03/19/2025 03:0 3 am UT Social History Observation Value Start Date End Date
--- OUTSIDE RECORDS SUMMARY | 2025-04-20 15:25 | XMS_ITS | Clinical Summary ---
Author Organization [facility] Address [address] [place], [place] [id number] Care Team Providers Care Psychology Fellow Name Role Phone Unavailable Primary Care Provider [...] N ot on file 11/13/2022 Data from: [email or web address] Last address used for calculation [address] [place] [address] 11/13/2022 Comments Unknown Sex and Gender Information [...] C Screening 2015 Cervical Cancer Screening 2018 Influenza Vaccine (#1) 2025 07/29/2013, 2007 DTaP,Tdap,Td Vaccine (8 - Td or Tdap) 02/13/2026 02/14/2016, 02/12/2009, 04/01/2002, Additional history exists HPV Vaccine Completed 02/12/2009, 10/05, 08/13/2008 Hepatitis B Vaccine Completed 02/14/2016, 1997, 1997, Additional history exists Insurance [employer] [place]
--- OUTSIDE RECORDS SUMMARY | 2025-04-20 15:25 | XMS_ITS | Clinical Summary ---
Demographics Address [address] [place] [address] Home Phone Mobile Phone Email Address Preferred Language en Marital Status Unmarried Mosque Affiliation Unknown Race White Ethnic Group Not or Lati no Author Organization [facility] Address [address] [place] [address] Care Team Providers Care Sorority Mother Name Role Phone Unavailable Primary Care Provider Unavailabl e Allergies No known active allergies Medications Gdlmrjuj-Ovt-Qt- FA (, w/Iron & FA,) 27-0.8 MG tablet 1 (one) time each day at the same time. 01/01/2023 Active famotidine (Pepcid) 20 MG tabletIndication s:Gastroesophage al Reflux Disease,Heartbur n Take 1 tablet (20 mg) by mouth Daily 30 tablet 3 02/27/2025 Active Encounters Date Type Department Care Team Description 04/20/2025 11:20 AM EDT Routine MARY AMADOR [address] [place], [place] [address]J[place] [address] Mamie Pascual PA Well woman exam with routine gynecological exam; Second trimester ([facility]); 16 weeks gestation of ([facility]); Vaginal discharge; STD exposure; Screening, , for anatomic survey ([facility]) 04/20/2025 Bamboo flowsheet MARY AMADOR [address] [place], [place] [address] [address] Mamie Pascual PA 03/23/2025 11:10 AM EDT Routine [facility] [place] [address] Sanjeev Casey, DO First trimester ([facility]); 12 weeks gestation of ([facility]) 03/23/2025 Bamboo flowsheet [facility] Jessica AMADOR [address] [place] [address] Sanjeev Casey, DO 03/19/2025 Abstract [facility] Jessica [place] [address] Sanjeev Casey, DO 03/13/2025 Clinisync Result Encounter NOMS External Department Unsolicited Sanjeev Casey, DO 02/27/2025 10:30 AM EDT Initial [facility] Jessica [place] [address] GA: 9w2d 02/27/2025 10:00 AM EDT Ancillary Procedure NOMRoopa AMADOR [address] [place] [address] Missed menses from Last 3 Months Family [...] 12.8 oz) 025 11:40 AM EDT Height 160 cm (5' 3 ) 02/02/2023 9:28 AM EDT Body Mass Index 24.94 02/02/2023 9:28 AM EDT Plan of Treatment Upcoming Encounters Date Type Department Care Team (Late st Contact Info) Description 05/18/2025 8:30 AM EDT Ancillary Procedure [facility]OM[facility]opa AMADOR [address] [facility] [place] [address] 05/18/2025 9:30 AM EDT Routine MARY AMADOR [address] [facility] [place] [address] Sanjeev Casey DO [address] [facility] [place] [address] Procedures Procedure Name Priority Date/Time Associated Diagnosis Comments CULTURE, URINE, ROUTINE Routine 03/23/2025 2:29 PM EDT Missed menses POCT URINALYSIS DIPSTICK Routine 03/23/2025 11:40 AM EDT First trimester ([facility]) HBSAG SCREEN Routine 03/13/2025 1:46 PM EDT RAPID PLASMA REAGIN, QUANT Routine 03/13/2025 1:46 PM EDT HCV ANTIBODY RFX TO QUANT PCR Routine 03/13/2025 1:46 PM EDT ALL RUBELLA IGG AB Routine 03/13/2025 1: 46 PM EDT HIV AB/P24 AG WITH REFLEX Routine 03/13/2025 1:46 PM EDT ALL TYPE AND SCREEN Routine 03/13/2025 1 :46 PM EDT MLR HEMOGLOBIN A1C Routine 03/13/2025 1: 46 PM EDT ALL CBC WITH AUTO DIFF Routine 03/13/2025 1:46 PM EDT BOX TEST Routine 03/13/2025 1:46 PM EDT [facility] DRUG SCREEN RAPID (URINE) Routine 03/13/2025 1:27 PM EDT POCT URINALYSIS DIPSTICK Routine 02/27/2025 11:11 AM EDT Missed menses POCT , URINE Routine 02/27/2025 11:11 AM EDT Missed menses US OB TRANSVAGINAL Routine 02/27/2025 10 :30 AM EDT Missed menses from Last 3 Months Results * Urine culture (03/23/2025 2:29 PM EDT) Urine Urine specimen obtained by clean catch procedure / Unknown Sanjeev Casey DO LAB MICROBIOLOGY - GENERAL ORDER MIS Final Result EXTERNAL LAB * POCT urinalysis dipstick manually resulted (03/23/2025 11:40 AM EDT) Only the most recent of2 resultswithin the time period is included. Color, UA Yellow Clarity, UA Clear Glucose, UA Negative Negative - 2000(110) ++++ mg/dL Bilirubin, UA Negative Negative - 4(70) +++ mg/dL Ketones, UA Negative Negative - 160(16) ++++ mg/dL Spec Grav, UA 1.025 1 - 1.03 Blood, UA Negative Negative - 50 Enrique/mcL pH, UA 6.0 5 - 9 Protein, UA Negative Negative - 2000(20) ++++ mg/dL Urobilinogen, UA 0.2 0.2 - 12 mg/dL Leukocytes, UA Negative Negative - 500+++ Lizzeth/mcL Nitrite, UA Negative Negative - Positive Urine 03/23/2025 11:4 0 AM EDT Result [facility] Sanjeev Carmela DO POINT OF CARE TEST ENTER/EDIT OR DERABLES Final Result * BOX TEST (03/13/2025 1:46 PM EDT) [facility] BOX TEST SENT OUT [facility] B[address]1 [facility] B[address]2 03/13/2025 [facility] 03/13/2025 1:46 PM EDT 03/13/2025 1:52 PM EDT Narrative [facility] - 03/13/2025 2:05 PM EDT [employer] LAB BLOOD ORDERABLES Final Resul t Performing Organization Address [facility] Co de Phone Number [facility] * HBSAG SCREEN (03/13/2025 1:46 PM EDT) [facility] HBSAG SCREEN Negative Negative [facility] Comment: Performed at: [facility] Lab[address] [id number] Negative Developer: Dima Livingston PhD, Phone: [phone] 03/13/2025 1:46 PM EDT 03/13/2025 1:52 PM EDT Narrative [facility] - 03/14/2025 1:09 PM EDT Result [facility] [employer] DO LAB BLOOD ORDERABLES Final Resul t Performing Organization Address City/[facility]/ZIP Co de Phone Number [facility] * RAPID PLASMA REAGIN, QUANT (03/13/2025 1:46 PM EDT) [facility] RAPID PLASMA REAGIN, QUANT Non Reactive NonRea<1: 1 titer [facility] Comment: Please Note: This test does not meet current guidelines for screening and diagnosis of syphilis. This test is intended for following treatment response in patients being treated for syphilis infection. To screen for syphilis infection, a reflex cascade that includes both RPR and a treponema-specific assay should be utilized, such as Treponema pallidum (Syphilis) Screening [place] (009890) or Rapid Plasma Reagin (RPR) Test With Reflex to Quantitative RPR and Confirmatory Treponema pallidum Antibodies (006193). Performed at: [address] [id number] Negative Developer: Dima Livingston PhD, Phone: [phone] 03/13/2025 1:46 PM EDT 03/13/2025 1:52 PM EDT [facility]ative [facility] - 03/14/2025 1:09 PM EDT Sanjeev Carmela DO LAB BLOOD ORDERABLES Final Resul t Performing Organization Address City/[facility] Co de Phone Number [facility] * HIV AB/P24 AG WITH REFLEX (03/13/2025 1:46 PM EDT) HIV AB/P24 AG SCREEN Non Reactive Non Reactive [facility] Comment: HIV-1/HIV-2 antibodies and HIV-1 p24 antigen were NOT detected. There is no laboratory evidence of HIV infection. HIV Negative Performed at: [address] [id number] Negative Developer: Dima Livingston PhD, Phone: [phone] 03/13/2025 1:46 PM EDT 03/13/2025 1:52 PM EDT Narrative [facility] - 03/14/2025 5:11 AM EDT us Sanjeev Carmela DO LAB BLOOD ORDERABLES Final Resul t Performing Organization Address City/[facility]/ZIP Co de Phone Number [facility] * HCV ANTIBODY RFX TO QUANT PCR (03/13/2025 1:46 PM EDT) HCV AB Non Reactive Non Reactive [facility] INTERPRETATION: Comment . [facility] Comment: Not infected with HCV unless early or acute infection is suspected (which may be delayed in an immunocompromised individual), or other evidence exists to indicate HCV infection. Performed at: [facility] Lab[address] [id number] Negative Developer: Dima Livingston PhD, Phone: [phone] 03/13/2025 1:46 PM EDT 03/13/2025 1:52 PM EDT Narrative [facility] - 03/14/2025 8:16 AM EDT us Sanjeev Carmela DO LAB BLOOD ORDERABLES Final Resul t Performing Organization Address City/[facility] Co de Phone Number [facility] * MLR HEMOGLOBIN A1C (03/13/2025 1:46 PM EDT) GLYCOHEMOGLOBIN A1C 4.9 4.5 - 6.2 % [facility] Comment: ADA RECOMMENDED LIMIT 4.0 - 6.0 ADA THERAPEUTIC TARGET < 7.0 ACTION SUGGESTED > 7.0 ESTIMATED AVERAGE GLUCOSE 94 mg/dL TB 03/13/2025 1:46 PM EDT 03/13/2025 1:52 PM EDT Narrative [facility] - 03/13/2025 3:51 PM EDT us Sanjeev Carmela DO [facility] Final Result Performing Organization Address [facility]/ZIP Co de Phone Number [facility] * ALL TYPE AND SCREEN (03/13/2025 1:46 PM EDT) BLOOD TYPE O Positive [facility] ANTIBODY SCREEN NEGATIVE TB 03/13/2025 1:46 PM EDT 03/13/2025 1:52 PM EDT Narrative [facility] - 03/13/2025 4:55 PM EDT [facility] , us Sanjeev Carmela DO CLIN[facility] Final Result Performing Organization Address [facility]/ZIP Co de Phone Number [facility] * ALL RUBELLA IGG AB (03/13/2025 1:46 PM EDT) [facility] RUBELLA ANTIBODIES, IGG 2.23 Immune >0.99 index [facility] Comment: Non-immune <0.90 Equivocal 0.90 - 0.99 Immune >0.99 Performed at: - Lab[address] [id number] Negative Developer: Dima Livingston PhD, Phone: [phone] 03/13/2025 1:46 PM EDT 03/13/2025 1:52 PM EDT Narrative [facility] - 03/14/2025 8:16 AM EDT Sanjeev Casey DO [facility] Final Result [facility] * (ABNORMAL) ALL CBC WITH AUTO DIFF (03/13/2025 1:46 PM EDT) [facility] WBC 8.8 4.0 - 11.0 10 3/uL [facility] TB RBC 3.98(L) 4.20 - 5.40 10 6/uL [facility]H HGB 12.4 12.0 - 16.0 g/dL [facility] TB HCT 34.7(L) 36.0 - 48.0 % [facility]H MCV 87.2 81.0 - 99.0 fL TB TB MCH 31.2 26.7 - 34.0 pg TBH TB MCHC 35.7(H) 29.9 - 35.2 g/dL TB TB RDW 11.9 11.0 - 15.0 % [facility] TBH PLT 279 150 - 450 10 3/uL [facility] TB MPV 9.6 9.5 - 13.5 fL [facility] NEUTROPHILS PERCENT AUTO 74.0 43.0 - 75.0 % [facility] LYMPHOCYTES PERCENT AUTO 18.0(L) 20.5 - 60.0 % [facility] MONOCYTES PERCENT AUTO 4.4 1.7 - 12.0 % [facility]H EO % 3.0 0.9 - 7.0 % [facility] BASOPHILS PERCENT AUTO 0.1(L) 0.2 - 2.0 % [facility] IMMATURE GRANULOCYTES PCT AUTO 0.5 0.0 - 0.5 % [facility] NEUTROPHILS ABSOLUTE AUTO 6.5 1.4 - 6.5 10 3/uL [facility] LYMPHOCYTES ABSOLUTE AUTO 1.6 1.2 - 3.8 10 3/uL [facility] MONOCYTES ABSOLUTE AUTO 0.4 0.3 - 0.8 10 3/uL [facility] TBH EO # 0.3 0.0 - 0.7 10 3/uL [facility] BASOPHILS ABSOLUTE AUTO 0.0 0.0 - 0.1 10 3/uL [facility] IMMATURE GRANULOCYTES ABS AUTO 0.04(H) 0.00 - 0.03 10 3/uL [facility] 03/13/2025 1:46 PM EDT 03/13/2025 1:52 PM EDT Narrative [facility] - 03/13/2025 2:48 PM EDT us Sanjeev Carmela DO [facility] Final Result [facility] * [facility] DRUG SCREEN RAPID (URINE) (03/13/2025 1:27 PM EDT) CANNABINOID SCREEN URINE NEGATIVE NEGATIVE [facility] PHENCYCLIDINE SCREEN URINE NEGATIVE NEGATIVE [facility] COCAINE SCREEN URINE NEGATIVE NEGATIVE [facility] METHAMPHETAMINES SCREEN URINE NEGATIVE NEGATIVE TBH OPIATE SCREEN URINE NEGATIVE NEGATIVE TBH AMPHETAMINE SCREEN URINE NEGATIVE NEGATIVE TBH BENZODIAZEPINES SCREEN URINE NEGATIVE NEGATIVE TBH TRICYCLIC ANTIDEPRESSANT URINE NEGATIVE NEGATIVE TBH METHADONE SCREEN URINE NEGATIVE NEGATIVE TBH BARBITURATES SCREEN URINE NEGATIVE NEGATIVE TBH OXYCODONE SCREEN URINE NEGATIVE NEGATIVE TBH BUPRENORPHINE SCREEN URINE NEGATIVE NEGATIVE [facility] Comment: DRUG CLASS TEST SYSTEM CUT-OFF CONCENTRATIONS ARE FOLLOWS: AMP (Amphetamine): 500 ng/mL BAR (Barbiturates): 200 ng/mL BZO (Benzodiazepines): 150 ng/mL BUP (Buprenorphine): 10 ng/mL LEONEL (Cocaine): 150 ng/mL mAMP (Methamphetamine): 500 ng/mL MTD (Methadone): 200 ng/mL OPI (Opiates): 100 ng/mL OXY (Oxycodone): 100 ng/mL PCP (Phencyclidine): 25 ng/mL THC (Cannabinoids): 50 ng/mL TCA (Trycyclic Antidepressants): 300 ng/mL 03/13/2025 1:27 PM EDT 03/13/2025 1:52 PM EDT Narrative [facility] - 03/13/2025 4:24 PM EDT us Sanjeev Carmela DO CL[facility] Final Result [facility] * (ABNORMAL) POCT , urine manually resulted [...] II, MD, PHD at 01-Mar-2025 10:04:28 PM [facility] Procedure Note Dulce Theodore MD - [...] signed by DULCE THEODORE II, MD, PHD [id number] 10:04:28 PM [facility] us Sanjeev Carmela DO IMG OB US PROCEDURES Final Resul t from Last 3 Months Insurance * Guarantor: Priyanka Shukla Account Type Relation to Patient Date of Phone Billing Address Personal/Family Self 1995 [address] [place] [address] [employer] [place]
--- OUTSIDE RECORDS SUMMARY | 2025-04-20 15:25 | XMS_ITS | Encounter Summary ---
Demographics Address [address] [place] [address] Home Phone Mobile Phone Email Address Preferred Language en Marital Status Unmarried Judaism Affiliation Unknown Race White Ethnic Group Not or Lati no Author Organization [facility] Address [address] [facility] [place] [address] Care Team Providers Care Watch Repairer Apprentice Name Role Phone Unavailable Primary Care Provider Unavailabl e Encounter Details Date Type Department Care Team (Late st Contact Info) Description 05/18/2023 Clinisync Result Encounter NOMS External Department Unsolicited Mamie Adler PA [address] [place] [address] Social History Tobacco Use Types Packs/Day Years [...] 8:30 AM EDT Ancillary Procedure [facility]S Jessica OBGYMaday [address] [place] [phone] 05/18/2025 9:30 AM EDT Routine [facility] [place] [facility] [address] [facility] [place] [address] Sanjeev Casey DO [address] [facility] [place] [address] documented as of this encounter Procedures Procedure Name Priority Date/Time Associated Diagnosis Comments US OB ANATOMY 05/18/2023 6:14 PM EDT documented in this encounter Results * US OB ANATOMY (05/18/2023 6:14 PM EDT) Anatomical Region Laterality Modality Other 05/18/2023 6:14 PM EDT Narrative 05/18/2023 6:14 PM EDT The [address] [address] Ultrasound Report Signed Patient: PRIYANKA HARDIN MR#: [id number] : 1995 Acct:[id number] Age/Sex: 28 / F ADM Date: 05/18/23 Loc: US Attending Dr: Mamie Adler Ordering Physician: Mamie Adler Date of Service: 05/18/23 Procedure(s): US OB anatomy Accession Number(s): [id number] cc: Mamie Adler; FAMILY,HEALTH SER The [address] [address] Patient Name: PRIYANKA HARDIN MRN: [id number] date: 1995 Sex: F Assigned Patient Location: US Current Patient Location: US Accession/Order Number: [id number] Exam Date: 05/18/2023 10:04 Report Date: 05/18/2023 [...] M.D. Signed By: 05/18/231816 DD/ 13 TD/TT: Loft Rigger: Procedure Note Radiology, Radiologist, MD - 05/25/2023 [place] [address] Ultrasound Report Signed Patient: PRIYANKA HARDIN MMR#: [id number] : 1995Acct:[id number] Age/Sex: 28 / FADM Date: 05/18/23 Loc: US Attending Dr: Mamie Adler Ordering Physician: Mamie Adler Date of Service: 05/18/23 Procedure(s): US OB anatomy Accession Number(s): [id number] cc: Mamie Adler; FAMILY,HEALTH SER The [place] [id number] Patient Name: PRIYANKA HARDIN MRN: [id number] date: 1995 Sex: F Assigned Patient Location: US Current Patient Location: US Accession/Order Number: [id number] Exam Date: 05/18/2023 10:04 Report Date: 05/18/2023 18:14 At the request of: MAMIE ADELR Procedure: US OB anatomy EXAMINATION: US OB [...] Naranjo M.D. Signed By:05/18/231816 DD/ 13 TD/TT: Loft Rigger: us Mamie [facility] Final Result documented in this encounter Visit Diagnoses Not on filedocumented in this encounter
--- OUTSIDE RECORDS SUMMARY | 2025-04-20 15:25 | XMS_ITS | Encounter Summary ---
Demographics Address [address] [place] [address] Home Phone Mobile Phone Email Address Preferred Language en Marital Status Unmarried Sabianism Affiliation Unknown Race White Ethnic Group Not or Lati no Author Organization [facility] Address [address] [facility] [place] [address] Care Team Providers Care Finance Consultant Name Role Phone Unavailable Primary Care Provider Unavailabl e Encounter Details Date Type Department Care Team (Late st Contact Info) Description 04/20/2025 Bamboo flowsheet MARY [place] OBCOL[facility] [address] [facility] [place] [address] Mamie Pascual PA [address] [facility] [place] [address] Social History Tobacco Use Types Packs/Day Years [...] Description 05/18/2025 8:30 AM EDT Ancillary Procedure MARY AMADOR [facility] [place] [phone] 05/18/2025 9:30 AM EDT Routine NOMRoopa AMADOR [address] [facility] [place] [phone] Sanjeev Casey DO [address] [place] [address] documented as of this encounter Visit Diagnoses Not on filedocumented in this encounter
--- OUTSIDE RECORDS SUMMARY | 2025-04-20 15:25 | XMS_ITS | Clinical Summary ---
Author Organization [facility] Address [address] [place] [address] Care Team Providers Care Infusion Rn Name Role Phone None, Provided MD Primary Care Provider Unavaila ble Allergies No known active allergies Medications No known medications Active Problems Problem Noted Date Diagnosed Date Patellar maltracking, left 04/24/2023 Sprain of left knee 04/24/2023 Patellar dislocation, left, initial encounter Comments Yes Encounters Date Type Department Care Team Description 03/16/[address] [facility] [address] [place] [address] [place] [address] Jeet Saha MD NEW DOL DIAGNOSIS APPROVED from Last 3 Months Social History Tobacco Use Types Packs/Day Years [...] Insurance [place] [employer] Care Teams Infusion Rn Relationship Specialty Start Date End Date None, Provided, PCP - General 04/24/23
--- OUTSIDE RECORDS SUMMARY | 2025-04-20 15:25 | XMS_ITS | Encounter Summary ---
Demographics Address [address] [place] [address] Home Phone Mobile Phone Email Address Preferred Language en Marital Status Unmarried Jehovah'S Witness Affiliation Unknown Race White Ethnic Group Not or Lati no Author Organization [facility] Address [address] [facility] [place] [address] Care Team Providers Care Assessment Rn Name Role Phone Unavailable Primary Care Provider Unavailabl e Encounter Details Date Type Department Care Team (Late st Contact Info) Description 05/18/2023 Clinisync Result Encounter NOMS External Department Unsolicited Mamie Adler PA [address] [place] [address] Social History Tobacco Use Types Packs/Day Years [...] EDT Ancillary Procedure [facility] Jessica OBGYMaday [address] [place] [phone] 05/18/2025 9:30 AM EDT Routine [facility]S Jessica OBGYN [address] [facility] [place] [address] Sanjeev Casey DO [address] [facility] [place] [address] documented as of this encounter Procedures Procedure Name Priority Date/Time Associated Diagnosis Comments US OB CERVICAL LENGTH 05/18/2023 6:14 PM EDT documented in this encounter Results * US OB CERVICAL LENGTH (05/18/2023 6:14 PM EDT) Anatomical Region Laterality Modality Other 05/18/2023 6:14 PM EDT Narrative 05/18/2023 6:14 PM EDT [address] [address] Ultrasound Report Signed Patient: PRIYANKA HARDIN MR#: [id number] : 1995 Acct:[id number] Age/Sex: 28 / F ADM Date: 05/18/23 Loc: US Attending Dr: Mamie Adler Ordering Physician: Mamie Adlre Date of Service: 05/18/23 Procedure(s): US OB cervical length Accession Number(s): [id number] cc: Mamie Adler; FAMILY,HEALTH SER [address] [address] Patient Name: PRIYANKA HARDIN MRN: [id number] date: 1995 Sex: F Assigned Patient Location: US Current Patient Location: US Accession/Order Number: [id number] Exam Date: 05/18/2023 10:04 Report Date: 05/18/2023 [...] M.D. Signed By: 05/18/231816 DD/ 13 TD/TT: Product Manager Financial Services: Procedure Note Radiology, Radiologist, MD - 05/25/2023 [place] [address] Ultrasound Report Signed Patient: PRIYANKA HARDIN MMR#: [id number] : 1995Acct:[id number] Age/Sex: 28 / FADM Date: 05/18/23 Loc: US Attending Dr: Mamie Adler Ordering Physician: Mamie Adler Date of Service: 05/18/23 Procedure(s): US OB cervical length Accession Number(s): [id number] cc: Mamie Adler; FAMILY,HEALTH SER The [place] [address] Patient Name: PRIYANKA HARDIN MRN: [id number] date: 1995 Sex: F Assigned Patient Location: US Current Patient Location: US Accession/Order Number: [id number] Exam Date: 05/18/2023 10:04 Report Date: 05/18/2023 [...] Naranjo M.D. Signed By:05/18/231816 DD/ 13 TD/TT: Product Manager Financial Services: us Mamie [facility] Final Result documented in this encounter Visit Diagnoses Not on filedocumented in this encounter
--- OUTSIDE RECORDS SUMMARY | 2025-04-20 15:25 | XMS_ITS | Encounter Summary ---
Demographics Address [address] [place] [address] Home Phone Mobile Phone Email Address Preferred Language en Marital Status Unmarried Christianity Affiliation Unknown Race White Ethnic Group Not or Lati no Author Organization [facility] Address [address] [facility] [place] [address] Care Team Providers Care Lab Intern Name Role Phone Unavailable Primary Care Provider Unavailabl e Encounter Details Date Type Department Care Team (Late Contact Info) Description 04/12/2023 Abstract MARY AMADOR [address] [place] [address] [place] [phone] Mamie Pascual PA [address] [place] [address] Dr [place], [place] [address] Social History Tobacco Use Types Packs/Day Years [...] Department Care Team (Late Contact Info) Description 05/18/2025 8:30 AM EDT Ancillary Procedure MARY AMADOR [address] [place], [place] [address] [phone] 05/18/2025 9:30 AM EDT Routine MARY AMADOR [address] [place] [address] [place] [address] Sanjeev Casey, [address] [place], [place] [address] documented as of this encounter Visit Diagnoses Not on filedocumented in this encounter
--- OUTSIDE RECORDS SUMMARY | 2025-04-20 15:25 | XMS_ITS | Encounter Summary ---
Demographics Address [address] [place] [address] Home Phone Mobile Phone Email Address Preferred Language en Marital Status Unmarried Zoroastrianism Affiliation Unknown Race White Ethnic Group Not or Lati no Author Organization [facility] Address [address] [place] [address] Care Team Providers Care Rice Farmer Name Role Phone Unavailable Primary Care Provider Unavailabl e Encounter Details Date Type Department Care Team (Late st Contact Info) Description 08/17/2023 Clinisync Result Encounter [facility] External Department Unsolicited Suzanne Casey, DO [address] [facility] [address] [place] [address] Social History Tobacco Use Types Packs/Day Years [...] 05/18/2025 8:30 AM EDT Ancillary Procedure [facility] [address] [place] [phone] 05/18/2025 9:30 AM EDT Routine [facility] [address] [facility] [place] [address] Suzanne Casey, [address] [facility] [place] [address] documented as of this encounter Procedures Procedure Name Priority Date/Time Associated Diagnosis Comments US OB GROWTH 08/17/2023 12:08 PM EST documented in this encounter Results * US OB GROWTH (08/17/2023 12:08 PM EST) Anatomical Region Laterality Modality Other 08/17/2023 12:0 8 PM EST Narrative 08/17/2023 12:11 PM EST [address] [address] Ultrasound Report Signed Patient: PRIYANKA HARDIN MR#: [id number] : 1995 Acct:[id number] Age/Sex: 28 / F ADM Date: 08/17/23 Loc: US Attending Dr: Suzanne Casey D.O. Ordering Physician: Suzanne Casey D.O. Date of Service: 08/17/23 Procedure(s): US OB growth Accession Number(s): [id number] cc: FAMILY,HEALTH SER ; Suzanne Casey D.O. The [address] [address] Patient Name: PRIYANKA HARDIN MRN: [id number] date: 1995 Sex: F Assigned Patient Location: US Current Patient Location: US Accession/Order Number: [id number] Exam Date: 08/17/2023 11:15 Report Date: 08/17/2023 12:08 At the request of: SUZANNE CASEY Procedure: US OB growth EXAMINATION: US [...] Signed By: 08/17/23 1211 DD/ 1208 TD/TT: Respiratory Care Program Director: Procedure Note Radiology, Radiologist, MD - 08/17/2023 [place] [address] Ultrasound Report Signed Patient: PRIYANKA HARDIN MMR#: [id number] : 1995Acct:[id number] Age/Sex: 28 / FADM Date: 08/17/23 Loc: US Attending Dr: Suzanne Casey D.O. Ordering Physician: Suzanne Casey D.O. Date of Service: 08/17/23 Procedure(s): US OB growth Accession Number(s): [id number] cc: FAMILY,HEALTH SER ; Suzanne Casey D.O. The [address] [address] Patient Name: PRIYANKA HARDIN MRN: [facility]:[id number] date: 1995 Sex: F Assigned Patient Location: US Current Patient Location: US Accession/Order Number: [id number] Exam Date: 08/17/2023 11:15 Report Date: 08/17/2023 12:08 At the request of: SUZANNE CASEY Procedure: US OB growth EXAMINATION: US [...] M.D. Signed By:08/17/23 1211 DD/ 1208 TD/TT: Respiratory Care Program Director: us Suzanne Casey DO [facility] Final Result documented in this encounter Visit Diagnoses Not on filedocumented in this encounter
--- OUTSIDE RECORDS SUMMARY | 2025-04-20 15:25 | XMS_ITS | Encounter Summary ---
Demographics Address [address] [place] [address] Home Phone Mobile Phone Email Address Preferred Language en Marital Status Unmarried Evangelical Affiliation Unknown Race White Ethnic Group Not or Lati no Author Organization [facility] Address [address] [place] [address] Care Team Providers Care Eyeglass Frames Polisher Name Role Phone Unavailable Primary Care Provider Unavailabl e Encounter Details Date Type Department Care Team (Late st Contact Info) Description 03/19/2025 Abstract [facility] [address] [facility] [place] [phone] Sanjeev Casey DO [address] [facility] [address] [place], [facility] Social History Tobacco Use Types Packs/Day Years [...] AM EDT Ancillary Procedure [facility] [address] [facility] [place] [phone] 05/18/2025 9:30 AM EDT Routine [facility] [address] [facility] [phone] Sanjeev Casey DO [address] [facility] [address] [place], [place] [phone] documented as of this encounter Visit Diagnoses Not on filedocumented in this encounter
--- OUTSIDE RECORDS SUMMARY | 2025-04-20 15:25 | XMS_ITS | Encounter Summary ---
Demographics Address [address] [place] [address] Home Phone Mobile Phone Email Address Preferred Language en Marital Status Unmarried Jehovah'S Witness Affiliation Unknown Race White Ethnic Group Not or Lati no Author Organization [facility] Address [address] [place] [address] Care Team Providers Care Back Tender Pulp Drier Name Role Phone Unavailable Primary Care Provider Unavailabl e Encounter Details Date Type Department Care Team (Late Contact Info) Description 09/09/2023 Abstract [facility] [address] [facility] [place] [phone] Sanjeev Casey DO [address] [place] [address] Social History Tobacco Use Types Packs/Day Years [...] 8:30 AM EDT Ancillary Procedure [facility] [address] [facility] [place] [address] 05/18/2025 9:30 AM EDT Routine [facility] [address] [facility] [address] Sanjeev Casey DO [address] [place], [place] [id number] documented as of this encounter Visit Diagnoses Not on filedocumented in this encounter
--- OUTSIDE RECORDS SUMMARY | 2025-04-20 17:06 | XMS_ITS | CCD ---
Demographics Address [address] [place] [address] Home Phone Mobile Phone Preferred Language en Marital Status Unknown Hoahaoism Affiliation Unknown Race White Ethnic Group Not or Lati no Author Organization [facility] Care Team Providers Care Valver Name Role Phone Kyle Pepe Attending Unavailable Kyle Pepe Admitting Unavailable Shannon Glez Primary Care Unavailable MD Shannon Glez Primary Care Provider MD Kyle Pepe Admit Provider MD Kyle Pepe Attending Provider FIONA GRIER Primary Care Unavailable LIZ, DR CRAVEN Admitting Unavailable LIZ, DR CRAVEN Attending Unavailable SRINIVAS, DR BRYAN Hernandez Consulting Unavailable INDIA SAGASTUME Consulting Unavailable LIZ, DR CRAVEN Consulting Unavailable DAMI MATHEWS Admitting Unavailable DAMI MATHEWS Attending Unavailable [facility]ILY[facility] Primary Care Unavaila liz NARANJO, DR RONNY Gan Consulting Unavailable DAMI MATHEWS Consulting Unavailable CARMELA, DR PALACIOS Admitting Unavailable CARMELA, DR PALACIOS Attending Unavailable FIONA GRIER Primary Care Unavailable CARMELA, DR PALACIOS Consulting Unavailable FIONA GRIER Primary [...] Lilly Attending Unavailable Unavailable Primary Care Provider Unavailabl e Unavailable Primary Care Provider Unavailabl e CARMELA, SANJEEV Attending Unavailable Medications Current Medications Medication Drug [...] Daily at bedtime July 03, 2022 12:00am famotidine 20 mg oral tablet (8 sources) Histamine-2 Receptor Antagonist Start: 02-27-2025 End: 06-27-2025 take 1 tablet by mouth once daily famotidine (Pepcid) 20 MG tablet Indications: Gastroesophageal Reflux Disease , Heartburn Take 1 tablet (20 mg) by mouth Daily 30 tablet 3 02/27/2025 06/27/2025 Active fluconazole 100 mg oral tablet (1 source) [...] SUBCUT every week June 30, 2022 12:00am Zkalvfrx-Ifj-Wm-F A (, w/Iron & FA,) 27-0.8 MG tablet (9 sources) Start: 01-01-2023 Negtdixt-Ieg-Sc-FA (, w/Iron & FA,) 27-0.8 MG tablet 1 (one) time each day at the same time. 01/01/2023 Active Start: 01-01-2023 Multi yxn-Bsd-Ql-FA (, w/Iron & FA,) 27-0.8 MG tablet 1 (one) time each day at the same time. 0 01/01/2023 Active traZODone hydrochloride 50 mg oral tablet (1 source) Serotonin Reuptake Inhibitor Start: 07-03-2022 take 50 mg by mouth once daily at bedtime Trazodone Active 50 MG PO Daily at bedtime July 03, 2022 12:00am Problems Active Problems Problem Classification Problem Date Documented Date Episodic/Chronic Anxiety disorders (3 sources) Anxiety disorder, unspecified; Translations: [Anxiety] Onset: 06-30-2022 06-30-2022 Chronic E Codes: Natural/environment (1 source) Exposure to other specified factors, initial encounter; Translations: [EXPOSURE OTHER SPEC FACTORS INITIAL] Onset: 09-08-2022 Episodic Immunizations and screening for infectious disease (3 sources) Encounter for screening for human papillomavirus (HPV); Translations: [Exposure to sexually transmissible disorder] Onset: 03-21-2022 04-20-2025 Episodic Joint disorders and dislocations; trauma-related (2 sources) Unspecified internal derangement of left knee; Translations: [Derangement of left knee] Onset: 11-13-2022 11-13-2022 Chronic Menstrual disorders (1 source) Missed period; Translations: [Irregular menstruation, unspecified] 02-19-2025 Chronic Mood disorders (1 source) Bipolar disorder, unspecified; Translations: [Bipolar disorder, unspecified] Onset: 06-30-2022 Chronic Other complications of (1 source) Gastroesophageal reflux disease in ; Translations: [Diseases of the digestive system complicating , unspecified trimester] 02-27-2025 Episodic Other female genital disorders (2 sources) Vaginal discharge; Translations: [Other specified noninflammatory disorders of vagina] 04-20-2025 Episodic Other non-traumatic joint disorders (3 sources) Pain in left knee; Translations: [PAIN IN LEFT KNEE] Onset: 09-06-2022 Episodic Other and delivery including normal (6 sources) ; Translations: [Encounter for supervision of normal , unspecified, unspecified trimester] 02-27-2025 Episodic Other screening for suspected conditions (not mental disorders or infectious disease) (6 sources) Encounter for screening for malignant neoplasm of cervix; Translations: [Patient encounter status] Onset: 03-20-2022 Episodic Residual codes; unclassified (2 sources) Gestation period, 12 weeks; Translations: [12 weeks gestation of ] 03-23-2025 Episodic Residual codes; unclassified (2 sources) Gestation period, 16 weeks; Translations: [16 weeks gestation of ] 04-20-2025 Episodic Sprains and strains (2 sources) Sprain of unspecified site of left knee, initial encounter; Translations: [Unspecified sprain of right wrist, initial encounter] Onset: 04-06-2022 Episodic Suicide and intentional self-inflicted injury (6 sources) Poisoning by unspecified drugs, medicaments and biological substances, intentional self-harm, initial encounter; Translations: [Suicidal ideations] Onset: 06-30-2022 06-30-2022 Episodic Past or Other Problems Problem Classification Problem Date Documented Da te Episodic/Chronic E Codes: Fall (1 source) Fall on same level from slipping, tripping and stumbling with subsequent striking against unspecified object, initial encounter; Translations: [FALL SAME LVL SLIP STRK UNS OBJ INT] Onset: 04-06-2022 Episodic Other non-traumatic joint disorders (4 sources) Pain in left wrist; Translations: [PAIN IN LEFT WRIST] Onset: 04-04-2022 Episodic Results Test Name Value Interpretation Reference Range Facility Urinalysis macro (dipstick) panel (U)on 03-23-2025 Bilirubin, UA Negative Negative - 4(70) +++ mg/dL [facility] Blood, UA Negative Negative - 50 Enrique/mcL [facility] Clarity, UA Clear [facility] Color, UA Yellow [facility] Glucose, UA Negative Negative - 1999(110) ++++ mg/dL [facility] Interpretation and review of laboratory results Normal [facility] Ketones, UA Negative Negative - 160(16) ++++ mg/dL [facility] Leukocytes, UA Negative Negative - 500+++ Lizzeth/mcL [facility] Nitrite, UA Negative Negative - Positive [facility] pH, UA 6 5 - 9 [facility] Protein, UA Negative Negative - 1999(20) ++++ mg/dL [facility] Spec Grav, UA 1.025 1 - 1.03 [facility] Urobilinogen, UA 0.2 0.2 - 12 mg/dL [facility] 36on 03-16-2025 36 Lvm to call back to schedule an appt [facility] Telephoneon 03-16-2025 Telephone [phone] Rosalva Hardin 1995 F Date Provider Department Center 03/16/2025 RONNY AZAR MP ORTHO MPORTHO No family history on file Reason for Visit and Comments: NEW DOL DIAGNOSIS APPROVED [Other] [facility] BOX TESTon 03-13-2025 BOX TEST SENT OUT [facility] [address] [facility] [address] 03/13/2025 [facility] CLINISYNC [facility] HCG ( test) Ql (U)o n 02-27-2025 Preg Test, Ur Positive Negative [facility] No Panel Informationon 02-27 Interpretation and review of laboratory results Abnormal [facility] US OB TRANSVAGINALon 025 US OB TRANSVAGINAL EXAM: US OB TRANSVAGINAL HISTORY: Dating. COMPARISON: [...] II, MD, PHD at 01-Mar-2025 10:04:28 PM [facility] Normal Not Available Comment on above: Order Comment: US OB TRANSVAGINAL No LMP recorded. Urinalysis macro (dipstick) panel (U)on 02-27-2025 Bilirubin, UA Negative Negative - 4(70) +++ mg/dL [facility] Blood, UA Negative Negative - 50 Enrique/mcL [facility] Clarity, UA Clear [facility] Color, UA Yellow [facility] Glucose, UA Negative Negative - 2000(110) ++++ mg/dL [facility] Ketones, UA Negative Negative - 160(16) ++++ mg/dL [facility] Leukocytes, UA Negative Negative - 500+++ Lizzeth/mcL [facility] Nitrite, UA Negative Negative - Positive [facility] pH, UA 8.5 5 - 9 [facility] Protein, UA Trace Negative - 1999(20) ++++ mg/dL [facility] Spec Grav, UA 1.02 1 - 1.03 [facility] Urobilinogen, UA 0.2 0.2 - 12 mg/dL [facility] Family Medicine Office/Clini c Noteon 06-06-2023 [...] with voice recognition software. Occasional wrong-word or ?hcsvp-g-phao? substitutions may have occurred due to the [...] also states she does not know what xfyi-hzz-eddpipd medications she is able to take. She [...] May use flonase for symptomatic tx. Contact club steward to confirm flonase is safe usage in addition to plain robitussin. Follow up with PCP if not improving over next --- days or significantly worsening symptoms. Patient verbalized understanding of tx plan. Ordered: fluticasone nasal, 1 spray(s), Nasal, BID for 7 day(s), 16 gm, Refill(s) 0, each nostril, [facility] 1985, 159, cm, 06/06/23 11:45:00 EDT, Height/Length Dosing, 76, kg, 06/06/23 11:45:00 EDT, Weight Dosing Follow-up With When Contact Information Newton DUNCAN, [address] [place] [address]- Additional Instructions: Patient Education Upper Respiratory Infection, Adult Problem List/Past Medical History Ongoing Acute medial meniscus tear of left knee Anxiety Chlamydia Episodic mood disorder. Lower back pain Posttraumatic stress disorder Suicide attempt Historical No qualifying data Procedure/Surgical History Dilation and curettage. Medications Flonase 0.05 mg/inh [place], 1 spray(s), Nasal, BID Allergies No Known [...] to help relieve symptoms, such as: ? Himg-xtf-yndosfl cold medicines. ? Cough suppressants. Coughing is [...] other clear broths. General instructions ? Take ggon-vgb-hqodejb and prescription medicines only as told by [...] and water are not available, use hand vehicle check in clerk. ? Avoid touching your mouth, face, eyes, [...] content not included)... [facility] ST - Assessmentson ST - Assessments [id number] #1.00CD:127 [facility] Coding Summary.on 01-01-2023 Coding Summary. CD:[id number] W w+PGhlYWQ+WN4YSZUbO85 xkGQnwQ8tS9RWSXaVPoqe TZWYYWwPOyYfkiJdZC1ws XNjZXJu IC8+HB7fNNCvMycvgOFtn 6K9aAL8E47mau7xFJesnK D9BHOaApLsdetbh1tzqVh 6IDcuNmluOyBt GBQxoM98BKO4vK17Rc54q TBqmJNvx2vchHr9ZoTrTI GxBJH4sEcyVNckb9EzLVZ lV94qjSKgj7R1 OYDfaTfpcCOfYfQczSD8q I7aTHvkcwwnx9sfulufJv i6cv95xJAag9W0iEF2S7T ccuX0WJTsdGMx MrzdlXFNmL3jyjgeg1boa jrfVnFzKBEiFOm1BWi7JR ZncPsqDpRtRB02GUQ6NSW lkwBpV7CnYYYd vAzgNtS4z0P1Fa9AQ6MBY nrgW5RMXSBUAPuwhBK+PC 02fe65W5RoEnhyYtu1ITF kOQX4mQB1iE5q HLZxTBxok2V4gWE9V8Blj sOcwp9cg0deKLNdJUvrF8 9wwQKkw8D6VADfiNC4JTH wtEqqPuQkrF93 Oyc+GQKlmZqse9ZvUmdqs 3aht8euxLf6JbcgCSMoan TbtTckXGZ9w0QvJj5rBIR tqJI7hPT8aW4t HsYcPtV8GEjwF310ViMds CHpYleyO60hS5FcjAU+PH CoFhi6WWNjnGkhFT3uI7N hZGRpbmctbGVm qGpfVV6nYTYihklqWCOox A9wZFTkF2p5XiHsMmR4CU lrM4RfXFUkptxnYy36mK1 nTyHuGhY0FQsg J8QncrM1PEPelOOnGDlqN YM1S49td6Y8AALiUASiDB F5yXX4sI7ewOloweaayEB mdDsgdmVydGlj HCvuCTziA616NLZayTggT kNvZGluZyBEYXRlOiAgMD UvMDEvMjAyMzwvdGQ+PHR mYCJ3bSgsTTIc cLKtVZqtLm4utLdcfHmqT W5pCSPezedmUNEbgP8aXW RqdCCnmNexWI1iOVIyvvr wj908TgYoETH1 HXGxnGExU4YssF1zOfJhA CVqMQOkQ6TelWEuGFseA3 44TFzcOxH4NAGxsdNnB3F sLWFsaWduOiB0 i7P4Qg9Yl2FmjmrmH5Nhi FUjVfJqVrztEAd4U7MoHw wvdHI+AS37QVYwPN08BSc 8ICC4zSeqGDdv RYZtC3XkfU8qRqAbXBLiV GRkOyc+PHRhYmxlIHdpZH RoPScxMDAlJyBzdHlsZT0 wHw2qXEChREUw qJrqwZEsJsDxp3dlAODtS FkeOC1eaCkaP6PboGO2CC Byv0u2Fq45H76lR2DxnVI +YXXesRH3iOJ8 uQ9bRsKwCgY1DMdbS299X sNxvSRtKsgri3tnv7kkmH l1KvQ2EMFsqxRvfSctTKQ 0g0MvNy18P01b IHdpZHRoPSIxNSUiIHZhb Cuwbg7zrV1qOh2+PGNvbC E2pOI4xD6jUsNjVgH6NCc aC316GhGqaLEl Qovju7nue5btnVx4MfJqK JTlisSpyQtbGWJ4c4TrQo 98X3KfjEavh1UrYhl6tk7 7kZPpj4Q3mAN4 E2ZfIMGactqvxECvnEzyD R1dOXBvvhopNMSvqN2rLQ GrI1c2FxQxYwV6JNbbS2N szuB7JLDsqASa HJPeoMTIfI0tuornm1zsn ohaMcXxDXHkQZj4MOi3BV EenXjlMePoIDG7GyU6BAQ 5qJFqpP3gbMis drxpaT1qPtx+CHO8yMOlb AIQOW0eApxcrXH+PHRkIH J0aZvtMCcaANAgtX0tASS kL6s0WmMqGiA4 HBuwC9AsjhW2INYwaLWfG EZtjFJBpV6gweipk0tbwv axXaRvDSJwWDt1JRd8SEB saWduOiBsZWZ0 VfO4MKX7lIJgqK0hrHgwx dsomZ4bZpt+QmlydGggRG J7UIy8R5UnKfb0MHXkwTu gOZ9aiHLdJDxa Uw8bsOhoyBdzOR4dUPFbf sted114GdJck2pjCDCrkU GvUXgnSGC6N75ai9D8XWB eXRGxAFP3nTS3 pM2ncVyhjcduyOVurPqkb lQkfEfeYUvzWQslL307CW IinKihEkHoJZm7F9FcRkt 3LPTrnNvnRG6b zOFoMPejZj5xlAggyNmtR O2fPCNfspmkt393OzKye4 ahKKOtlJWiLAvnTUQ9F85 ur7W5TYIxBETl ZFB5fXS7vJ5dhBkjoyrdb GVmdDsgdmVydGljYWwtYW tgP815TEJmaIzlKaYebSq 2C4AqGdk3KPHr pLstQK3tiLFjOKvcSo1md TlqiKbkXJ6pVGPcolsjp4 21UuXmi7amMDOtwNJxWBr rLFM8L86nq5K1 XTHaPINrZBZ5iOW8kG9mo GlnbjogbGVmdDsgdmVydG tkWTquPAkaT231QJUdmKy nPlBhdGllbnQg DBkmYVf0J5CaDhbnzCJ+P O28XUAsYR45aGUxrOIba6 awcLb3SzJzBJUzGBF8bSp jIZayf9QbHGHr E69zoGTqy4C4MYCbbZvsg IGiGiGkqTO7tY0iFStbqw msv3dvhkcxYfunk8esqy5 9bB36C11uFCaa ZHRoPSIzMCUiIHZhbGlnb i5eeM6pLl4+OSSuiJD6zW I7wV7cSFDmKbT4MKnkM19 9InRvcCIvPjxj n0owl4qcfBe9TmS7QJKyc wZnsHhxIFM4h9VhSs23M9 9sIHdpZHRoPSIyMCUiIHZ nnUrhmz1gtL5k Ii8+RFUepMV7tOY5lM9vY rCpAsQ5PCskR006KcGobL QsNxulK74eR9VesGC+PHR dYow4LIBrkAlk SH6qnGTyEIieEb4vTWV8W kHnCeZdSZdbF3HfKTZgsr xjwqtahON6GRIlKAObiZ5 7Df5sfQveXULh eEXHnZ4fvnshz5xrqijdC gGnTNAnZUm4BWr2OIUqbF mfPyLkJAQ4FmU5JDB5iVV vpI4pfPwgwucb lP8eN0MiYUPstohnFy96t M3nUeWaJnC7TRteRve+Sk 9AQINrIOJERSXFMNWEQK2 3VW07pDCze8P9 fSF0Y0GbKTSbpbwmssjqo FH0TDPgKCAdnB29tPLhZM mtPj7dq7H1k572VIDoNYL guK05Xl1hvLpi QCQzaMADoK8eqoojt4ofr ymiCwGtPXNlOCo9OLg6EI WyiHlfHsMoNCX4DvX7AWS 8vKDgmP3vxMrv pvnmvG4pGwc+MDcvMjcvM Td6BnpbkHI+TPPdDJX6bP jqETziOFUvqY4kKJXoP5l 2WdQfXhH4IUju D7LqKMQwifelAu08vI3gV kQcCvG7REokS1VkdrG7MF YpzBKyARhlNMQ4X96sx3B 1KYMbEQLnXTF9 jGT0zV8ayUyfprlouFDgx DsgdmVydGljYWwtYWxpZ2 33FDXcoSqkYaQ5LZadZHD rNB22IY07iLOq g2T5bRG2P8DnTQGgdokxo mbguNL5ALQsCEQlqC11wP NbKZgrLg1uv4P2u091PYN bABWeyC47Tl6s kRnhAYYueQBExY7uohopt 7gndvnkNjEyITPgAOt8NT t8VQTozZxuScLqEQI9AqU 8VTS3fCNxdC5w bJzoiovztJ2iPrl+RmVtY RitSO62HG65qHCpw6C8aY Z2K8BqXYSrpzbuwmvciCY 6YZBuXTBfhM72 sXJaYMxlOd4qg8O4b409V EHpCAAplK86Dt7acFeeHV WroBPScO9fkxbbz2vzmoi gIzAwMDAwMDt0 WGp6KXCmkCjkJbYaNAH7W gT3CLL5qEXesR7lzInqxq otoT4kJde+UmVjdXJyaW5 kUK50TW42X8Uq PjwvdGFibGU+PHRhYmxlI HdpZHRoPScxMDAlJyBzdH vvOB5tAx1wJDXvDKGbmTk xaKJeExTza6de QKOzEGqmDY1fyVzhK2Amp WG5HTOlq2g3Pr49J44hD1 JvdXA+OMWbqBZ0rNM7uM7 jTlJxIbI1IQem L578AsAhkDUbKydqo7hcv 3oqgSw1HsSpLKCcbhNjpZ mfXNR2v8PwMa60P50jOBu pZHRoPSIyMCUi TZLtbPnkel3cdH1yGi1+P PJwxVR4xYD6xD7rEsVsQe N3ICrdH304UeUblQOrNbd nW25xJ9SphRT+ BPQhOcq5GVXbeRlgXE6mv YNfCSoxYs3bPEW4YuIyBp ItZTxjI5YqPPAqglninko uzWC7MQKgOXSg qP82Yw7nlJobQr3zXQBlC HI1ISCrmZNtK7HanC8rTm EnTIDyCBAxZ5YiwZBsYLv iD029JZucHyX2 WWZmxbApD5SaCGSldXsjN sE8k6Z3Pw1PjGjcsFKkIK 5aKqSqZVm7G6DgQad5VDZ hlJdmBI4eyPKy JRmzPg8fuWpjhSfiBK9dL KZidmxwq020PxSts5skRJ YiuVNfTZzjTBY3J22nq9K 2SGMgKMMjANB0 vJS8yY1cmAbmdcwtpEYdf DsgdmVydGljYWwtYWxpZ2 33THNdnJwvBkYYYgk8I7C jOfs0VSQqvAic VH3rkPPnJKgsJw1pcRnpp LizXA2tBRHuoopuv981Ky Itl7xqUNMufPJyKWwjDYG 0Q59bl5V7CTRr IQOjPRT3eYS0zE1cgLlpt jogbGVmdDsgdmVydGljYW aeWMnhS991DWSsaUhyVb6 UIsn4X3NfGwr3 UAIpaOcyRX9ftAGmJZomB q2juGycrNxcBF7yWCGboy whk962WtWsa3nmHCCdeTS fJGkyYWW3R68j p0E8WXFqZWVdNUL3lWE8l Z6wkNmwftielIYzrQwuad CmdKyvVJwsXHxwA011CHT vcDsnPlBheWVy OjwvdGQ+WJ13ir76R9CuR ayaCig1GTTwWTE7iPJ7iY 1tLHKkLFwaj7S6sNF0O5M oxhXrvl3oj5nx YXBzZTog (more content not included)... [facility] Consent for Treatmenton 12-03 Consent for Treatment [id number]#1 .00CD:127 [facility] ST - Orderson 12-22-2022 ST - Orders [id number]# 1.00CD:127 [facility] ST - Otheron 12-22-2022 ST - Other [id number]# 1.00CD:127 [facility] Family Medicine Office/Clini c Noteon 12-09-2022 Family Medicine Office/Clinic Note Chief Complaint EST muffled hearing, ear pain and pressure HPI Staff Rosalva is a 27 year old female who [...] day(s), # 14 tab(s), Refills(s) 0, Pharmacy: [facility] 1984, 160, cm, 12/09/22 13:50:00 EDT, Height/Length Dosing, [...] Center Comment on above: Result Comment: Elec trovadimally Signed By: Katherin PETERSEN CNP.hattie\Date and Time Signed: 12/09/22 14:16 EDT Patient [...] home: Medicines ? Take, use, or apply eeul-aqy-pxtojtq and prescription medicines only as told by [...] and water are not available, use hand vehicle check in clerk. ? Do not smoke. Avoid being around [...] pain or swell (more content not included)... [facility] Provider Letteron 12-09-2022 Provider Letter December 09, 2022 ROSALVA HARDIN [address] [place] [address] ROSALVA HARDIN 1995 To Whom It May Concern, Please excuse above patient from work. Date of Illness:12-09-2022 May Return to Work On:next scheduled work day Restrictions: _ Comments: _ Sincerely, [facility] [address] [facility], [place] [address] [facility] Family Medicine Office/Clini c Noteon [...] Acute pharyngitis, unspecified) Ordered: Rapid Strep POC [id number] Follow-up With When Contact Information Newton DUNCAN, [address] [place] [address]- Additional Instructions: Patient Education Antibiotic Resistance Upper [...] Given Postpone due to refusal SARS-CoV-2 mRNA (tozaheernameran 5y-11y) vac - Not Given Postpone due [...] above: Result Comment: Elec tronically Signed By: Magalie COTTON, EFRA, Sunshine Maria\.br\Date and Time Signed: 12/04/22 12:31 EDT Patient [...] Before and after (more content not included)... [facility] Patient Letter FTon 2022 Patient Letter [facility] December 04, 2022 ROSALVA HARDIN [address] [place] [address] Please excuse ROSALVA HARDIN from work . Date and/or Time of Absence: From: 12/04/22 To: 12/05/22 Restrictions: None Comments: Please excuse due to an acute illness. Provider Signature: Sunshine Mejias APRN, SPINNING MULE OPERATOR-C Nurse Practitioner [address] [place] [address] [facility] CNOVon 11-13-2022 CN Office Visit (LOORRM ) ROSALVA HARDIN ([id number]) 1995 F Date Time Provider Department 11/13/22 9:30 AM AUDREY MORGAN During your visit today, we recorded the following information about you: Weight Height 59 kg 1.6 m Allergies As of Date: 11/13/2022 (Not on File) Date Reviewed: 11/13/2022 Reviewed by: Monie Salmon MA - Fully Assessed Reason for Visit: New [[id number]] Primary Visit Diagnosis:Acute pain of left knee [M25.562] Other Visit Diagnosis:Internal derangement of left knee [M23.92] Problem List As Of Date: 11/13/2022 (None) Encounter Status:Closed by AUDREY MORGAN II on 11/14/22 [facility] XR KNEE 4V AP/PA BOTH+LAT/ME R [...] dislocation. No joint effusion. IMPRESSION: Normal radiographs. Pharmacist Assistant: [facility] Transcribe Date/Time: Nov 13 2022 9:55A Dictated by : EBENEZER HORAN MD This examination was interpreted and the report reviewed and electronically signed by: OPAL WARE MD on Nov 13 2022 9:51PM EST [id number] Normal [facility] XR Knee - left 4 Viewson IMPRESSION: Normal radiographs. Pharmacist Assistant: [facility] Transcribe Date/Time: Nov 13 2022 9:55A Dictated [...] No joint effusion. DIVISION OF RADIOLOGY Provider, [facility] - 11/13/2022 * * *Final Report* * [...] No joint effusion. IMPRESSION IMPRESSION: Normal radiographs. Pharmacist Assistant: [facility] Transcribe Date/Time: Nov 13 2022 9:55A Dictated by : EBENEZER HORAN MD This examination was interpreted and the report reviewed and electronically signed by: OPAL WARE MD on Nov 13 2022 9:51PM EST [facility] Radiology Study observation (narrative) Latrice muhammad [facility] XR Knee - left 4 ViewsOrdere d By: [facility] Provider on 11-13-2022 [facility] MRI KNEE LT WO CONon [...] the inferior articular surface Electronically authenticated by: ORNNY NARANJO Date: 2022-10-11 19:17 Normal [facility] ED Noteon 07-12-2022 ED Note [id number]# 1.00CD:127 [facility] Comment on above: Other Comment: WRONG FOLDER Outside Recordson 07-12-2022 Outside Records [id number]# 1.00CD:127 [facility] Coding Summary.on 07-03-2022 Coding Summary. CD:[id number] G h0bWw+PGhlYWQ+EP9RFXB bE40jjNMybC8MI2tWQH6U PIOFMFGCIX8KZJ9vsLC7J PocH7PtggFg MkhgoDJkTW13CEt8KYL4y UjtQUbubV4jlZUoQ0b4Tr PfHV40lA43PZbiHDEpPjE 3LjZpbjsgbWFy V0sqVoBnoQAtCzz+PHRhY mxlIHdpZHRoPScxMDAlJy NciIiyND3nQj0iVAVpBZM vbGxhcHNlOiBj f6dgOWDkUDalDT7aaWoiN 3VmjJY3LMRca6f0Lq15qG I+KPXsSKV8mMavXPmtm24 4WfVbe8zvAXY5 pHInZTheFKU3R43xl5Y7A KNfWQTfMTZ1aYT3iG3yhP dyozigP0QhjDEjTyW2WEP 2eCSgnR8tnSjt tczixB8jShp+Q92ADJ0BN HRXSJ5MGzb8I5PzUnasoU I+HU70JUFiII29eLLavXD tc9onyLd9MgUp OXAzDQY3mSuaIYndc5OwO DFeF97ayNCgi2L4EOXniJ mciSSvMkUyjWG6tL4qPIu skekaa1rhilce Vrmqs5kclg74uF41S60nW QbiHZBrOHK4FDCrBBSgvU fagc1qcD9yVd6+TXcjy6z oj9qanNa6IrIs SPEomnTxlDegWIX5o0CoL a46T0NqpZbzf1JtMsf6ne 12vSPjo2H3pBU0ATwtBSA vdQ7dWItjGhF5 XGIxOaTqlM00bUFwFSqjB l7kuPhqiYigUG7zQPBfgv xgYEBetQ6uWWDfcUEdqHo eXS5fBLKoqhpm s154PvJeZDB4QIWbuFRuL 6EawS1wZiCwKTToCUMhE7 MjgAZuWFxhE486ICpsZcD 2LOWebdAxC2Cj MYUniNlkDzN6r1L0Sy4Nc 4TbdyoeYHD3ZAlzCXDkJg WnRxRoGkO6P2MxRgs3HBM mbJheNG9qU7Oa PUCoxxugwynglNN0BCMoZ ZLqjR67pFJvUBmjDw6qe9 H4u690JSZtPAPluB25Uy8 udDogMTBwdCBU dY4hmettv9hdguigJmAbI CMqZVm4ZLw7ROCisOnkHg AjNRR3LjR7MGR4xFOrhK4 kpRbwgvimiZ2u Oyc+L91reQ1tDWM7YYN7c lwxAPTfiiXyZV03RX43T4 RyPjwvdGFibGU+PGRpdiB gbRdtHL6wVuNy j3axn6SlQPybL5JrHPDgM OwvGsj0CAHtMCX8dGL8xB 3qYAZmRZrcb6Y1yAR0U9E ethFljp2kf5fk KLPpXSwlM39zsBWzo4K8E PRlxAU3GMOpcIpaQtTyvM 93Oyc+YFUekWwht3FhSpa yu7fxl4bxuQp0 OaItVCTenzRliRahKSR9f 3IdMl57K75uSJikXPYbIU JaDLDzAJOsbLixwe2bwY9 wIi8+PGNvbCB3 bRF5wP4nFGBcEwL9YJbnK 948PwRtqKUtTcrpl6vre0 ecqIr0JlUoWZVffeCpgBp aDHT8g7YoNo09 X39zKGrrNYCuCUUlRYAeQ BXfoIxkup0ipV2eUm4+PC 8gw9dira09qA51lMO+PHR yKOS1lNydABdl VCVcqR6dXWjgJdI7MCTvG oLrtB19qDTgTSxyDh4orH qwdWyoRK5cYSTwovwdc16 8RwMgl5shFFZy vRPsIKzoXZI0I95og9H9C ZTnDWAoYSM3vFC3wJ3euN lnbjogbGVmdDsgdmVydGl vFTchOIfhH725 IHRvcDsnPlBhdGllbnQgT lYrHXr9P4FiYuc0FWWjeZ soHT3kgGMtDZwxYe9ceCg hmQtcFB1qHNKy ugkte627PfSgq0duQOWzw CXgNRoyUBW3S81sn7Y2EB EaZHZgPVJ0uAD5bD4cpOd nbjogbGVmdDsg lrWjoZrwSVzqUIjjG379J HRvcDsnPkJpcnRoIERhdG I0OH17GJ65cPRao1D9oRC 0B1KoBFJueaks gvhmsMV9COEmZAUydB47P f7sqGcrRx1xWXTwJCV4YQ BgbSKrO1QufS7sFfIhTFH tOJFkC1WtpHPx HGqrB069KWufPpK0ZBWps vCaU1QiOIXnoOfvQxV4a9 O8Pl1NQ1B2AQ63MF21oWE ai6V8qCQ0H8Xk JESbierwotjszKA0BJRyH OVryB53Ib1jiLsnRi6gNB NoYRZ0SYVmwJSyZ6JrzL4 yOiAjMDAwMDAw Y3ZvwLWbXMcdB745LGpcJ kG5CYBghsDxR0ZgKZNgwY coUsC0g1Z4Tp1UTTu9BY0 8PA18bTCwe0T4 wCU3J7MyTXEdyuknxuldi EQ9IYLcDZWioK10Gg7puT hwWw6sJLSrNVB8CHRukWO vA4HzhW1pWmUy CSKgAIZbX5VjsBYbWDpqB 899XWcoRxY2EBIzvqVbX8 QkTHAwbWnqLjL0s2Q5Rw9 VFNWkNG37BYQ6 lLF9DX88WY67L7AkDuyvi GFibGU+PHRhYmxlIHdpZH RoPScxMDAlJyBzdHlsZT0 vWa7aNGNgHGKv bRxriJZgEdKqb0spHTAsX XavCS2wvPylQ2ZrjRT6TG Ldo2t7Sm44S23cO0VgjZH +EBIaqPA5iPA0 xW4aYsHvJdA5IQtwJ990Q jOgqXDvXapxn8ikr7iayP g9RwK6XLVboeRruVmfYNQ 6c8UsJi43S16z IHdpZHRoPSIxNSUiIHZhb Fnxht9qnZ3aZi7+PGNvbC W6oEB7eR8aObOzFhN6AKq eR794DaMpeWMm Mekbf5yfu3tvsXz6LaQyA SQinnFakLjlLYS1z3SgIg 68G9BxwBwph6MxZnw1qi2 9hOQks4Z0xCB7 X4VdICSwwuigaWQumNlgC P1rTCAtpviiKEPelS8bAA QjQ0g3KyOsPqY4VLlzO8M lsfZ0WTNodICj NBvnFNK6B62wl8L1ATFyY YVkZMV3uZK6hR3vmBjskc ogbGVmdDsgdmVydGljYWw vPQsqL473LFTu vCuuPICcwK1uHBHfeRYyh TgkFG8vCCTkzdxgTfxTLd YYBWPCRFxMW2SjNNyuoFJ +GEBiGJT4lFll TIliTIOhyZ9cLJSlG3a9M kAvBwV4BQlmS9GgYCZkuv awQl10aK0lRaOpIbY3YRc lL5PmegU6LJZa lNRpFVedVOY6J95qx6T5N VQvBAYuCOM5ySI0yV8azA lnbjogbGVmdDsgdmVydGl yEYhtZIqlJ869 WSCfrJfaQkM0DpX7YxR5N Xf6N4KjAoc7WXFzyYebLX 0dmIHcTKdrCb3erNizkWh tCI3qBCRaltir PYZkfX3mHRVwiUHedZeiL G0vTANgfmtvp863RiOdYC E3SKJwwRCcB9JtjE9wVmC uEXBdHQCrC3Nx xRTgUIvvV072VGsnLkM4I DEiznOoL9VwEMWhfYjtFx U8f3R1Mv9qZYXNUPJkafc vdGQ+PHRkIHN0 uOllLIuuONRgcJ7pTXCaA 9b2QfTkLcN0IJfxC4CuJD DsrcbxMc27aC1eLxVtZvW 4UNjiR6PmbsN0 RPVadRIpUVuiBDG5V71kw 4Y3JGFzAZNrSWC4wWH0hN 1hbGlnbjogbGVmdDsgdmV ydGljYWwtYWxp Q714JOBxvBdtMnNqwSVeH TwvdGQ+LUAmMOS6hJvvEV neOSQkuN6tQOEnJ4e9NkI gOiN6HZfrM2Vh ZUNraakxOs24dT5bMaQhX zL1AZmiI8IjosG7WSPslC BnLKwyAQU2E66mx2E9UYV aETYfWGA0uXF0 zA3bgAwaglfnqAUywZxpq bUozNysIRdsNJidY401JY NvsRdrLhDpSRCiZE0sfYv vdGQ+XX79dt70 X3LdVavjYrl3KJAeOBM8o PN2fK1gDBOuLKcjs7C9oK U1M9XdipZghj7bk5wuYGE aCErhS81wnNRb q8M0HZXntWU0QIHsdLcnY cBtrG73Uml+PGNvbGdyb3 ZdTlykg6onb7tngSv9RiL wJSIgdmFsaWdu SQA8w5EyXf01Y72zZBurV HRoPSIzMCUiIHZhbGlnbj 4veV5jJw0+JEYlnGR9zPX 8lQ7jZgPsGoP9 TUoyZ779KzPbxZIkBdkzi 9yga8aoyDh4KzPdJDMwda VrfYstBHT2i7XyVo28F9J eeSxdd7UyDkf5 ez37jKWtb6O9vLD8E6DwC MTyqoniuTJfyPlgGG3dZW UusbmkUPFgzO1zPXXoY3d 5SiVcJzB4ZMen D2QrmsB9BNNdpSZrXBJqj NINbJ9effojy4sofckoFo YpIONcXTa8VZl8CJQaiWw uDmRqUNL3LuB9 YXJ0dYNaeO4npBsedkcvw G9wOyc+IIh6v2iwqUTrWB 7zwIV9BG31VL00rYHmu2D 7sAM4G6IrKKZo dyycmmzbvDA8WEEwNYZdb B82Ei3enQqzEn3pLEHcZW L2KGGieMEuR8IvpL2dQxM lGQEtBAEpK1Xf mSSaJLecQ351ERwqVuK6T KJxdyXiD2AiEFTqnPwmMz Q5g8E5Au6BSV62RG71SL0 5bZYxz0T7fGV7 U7YdWSCgdlpgwirjgTF0A WVhVEIqhV51Zg1zjSshWo 8wRTQeDKT0CUMphGKwQ1T iyF5kCmCgHMCb WDVqA4EfoSLtPFyqW828P LrdYkA0FSJxikJqS7VmAV QuxLjcFtU5i7H7Uu4OAg1 6OM14HJ08hVNv a3F0pJL7H3BuKBZbqzxcs eiwsRG4ANWrXJGvxZ27Or 3soPfkQj9vOWPdZFH2ZTL roCRdE6MgyJ6g FhOxTMStOENkD9QtpUSsG UcdZ246RBncRoP8WNDvan LdV3EiKUAnjLsgShY2d1H 7Yu8XFXzxxip4 H8BfUzksbBS+HR37LNWdP D37qBHuiQJhs8bbtMd1Tu MwKKVmFNU9vNqtNEsqf7K yADVtX99tiYZt c2U6 (more content not included)... [facility] Cholesterol [Mass/volume] in Serum or PlasmaOrdered By: Kyle Pepe on 06-30-2022 Cholesterol [Mass/Vol] 135 mg/dL 140-200 [facility] Comment on above: Chol less than 200 m g/dl low riskChol 201-239 mg/dl borderline riskChol 240 mg/dl and greater high risk Cholesterol in LDL Calc [Mas s/Vol]Ordered By: Kyle Pepe on 06-30-2022 Cholesterol in LDL [Mass/Vol] 66 mg/dL 0-100 [facility] Comment on above: LDL ATP III CLASSIFI CATIONLDL less than 100 mg/dL OptimalLDL 100-129 mg/dL Near or above optimalLDL 130-159 mg/dL Borderline highLDL 160-189 mg/dL HighLDL greater than 189 mg/dL Very high Cholesterol in VLDL Calc [Ma ss/Vol]Ordered By: Kyle Pepe on 06-30-2022 Cholesterol in VLDL [Mass/Vol] 4 mg/dL [facility] ED Clinical Summaryon 2021 ED Clinical Summary [address] [address] ED Clinical Summary Person Information Name: ROSALVA HARDIN [place] Age: 27 Years : 1995 Sex: Female Language: French PCP: Shannon Glez MD Marital Status: Single [...] 06/29/2022 23:43:15 06/29/2022 23:43:15 ADDRESS: [place] [facility] [id number] PHYS DOC NOTES: MEDICAL INFORMATION: Prescriptions Given: [...] ED Patient Summaryon 022 ED Patient Summary [address] [address] Patient Discharge Instructions Person Information Name: ROSALVA HARDIN Age: 27 Years Arrival Date: 06/29/2022 17:33:15 Discharge Diagnosis: 1:Suicidal ideation Primary Care Physician: Shannon Glez MD Provider Information Primary Provider: Sai Vasquez DO Advanced Project Inspector:Arnoldo Wellington PA-C The exam and treatment you received in the Emergency Department were for an urgent problem and are not intended as complete care. It is important that you follow up with a doctor, nurse practitioner, or physician?s public health training assistant for ongoing care. If your symptoms become worse or you do not improve as expected and you are unable to reach your usual health care provider, you should return to the Emergency Department. We are available 24 hours a day. ROSALVA HARDIN has been given the following list [...] opioids can be used to help relieve ubovdbpw-jp-haxmel pain and are often prescribed following a [...] be struggling with addiction, tell your health life care planner and ask for guidance or call [facility]?S National Helpline at [phone]-QJTL. d Source: [place] Department of Health and Human Services/Center for Disease Control & Prevention [facility] Medications Given: Medication Dose Rou (more content not included)... [facility] EMS Documentationon 06-30-20 EMS Documentation [id number]#1 .00CD:127 Normal [facility] Lipid Panelon 06-30-2022 Cholesterol [Mass/Vol] 135 mg/dL Low 140-200 [facility] Comment on above: Result Comment: Chol less than 200 mg/dl low risk Chol 201-239 mg/dl borderline risk Chol 240 mg/dl and greater high risk Performed By: #### T SH3 wRFLX, [id number], LIPID #### [facility] [address] [id number] [place] Cholesterol in HDL [Mass/Vol] 65 mg/dL Normal 35-85 [facility] Comment on above: Result Comment: HDL CHOL ATP-III CLASSIFICATION Cardiovascular Risk HDL > or equal to 60 mg/dL LOW HDL < 40 mg/dL HIGH Performed By: #### T SH3 wRFLX, [id number], LIPID #### [facility] [address] [place] [address] [place] Cholesterol.total/Choles terol in HDL [Mass ratio] 2.1 {ratio} Normal <5.0 [facility] Comment on above: Performed By: #### T SH3 wRFLX, [id number], LIPID #### [facility] [address] [id number] [place] LDL Cholesterol,Calculated 66 mg/dL Normal 0-100 [facility] Comment on above: Result Comment: LDL ATP III CLASSIFICATION LDL less than 100 mg/dL Optimal LDL 100-129 mg/dL Near or above optimal LDL 130-159 mg/dL Borderline high LDL 160-189 mg/dL High LDL greater than 189 mg/dL Very high Performed By: #### T SH3 wRFLX, [id number], LIPID #### [facility] [address] Triglyceride w/Reflex 20 mg/dL Low 35-149 [facility] Comment on above: Result Comment: TRIG ATP III CLASSIFICATION TRIG less than 150 mg/dL Normal TRIG 150-199 mg/dL Borderline high TRIG 200-500 mg/dL High TRIG greater than 500 mg/dL Very high Standard traceable to the Center for Disease Conrtrol and Prevention (CDC) test method. Performed By: #### T SH3 wRFLX, [id number], LIPID #### [facility] [address] VLDL CHOLESTEROL 4 mg/dL Normal [facility] Comment on above: Performed By: #### T SH3 wRFLX, [id number], LIPID #### [facility] [address] No Panel InformationOrdered By: Kyle Pepe on 06-30-2022 25-Hydroxy Vitamin D Total 22.3 ng/mL 30-100 [facility] Comment on above: VITAMIN D STATUS 25( [place])VITAMIN D RANGE (ng/mL) Deficient <20 Insufficient 20 to <30Sufficient 30 to 100Reference: Constantino MF,Claudio AGUILAR, Martin IBRAHIM, et al. Evaluation,treatment, and prevention of vitamin D deficiency; an Endocrine Society clinical practice guideline. JCEM. 2010; 96(7):1911-30. Serum or plasma high density lipoprotein (HDL) cholesterol measurementOrdered By: Kyle Pepe on 06-30-2022 Cholesterol in HDL [Mass/Vol] 65 mg/dL 35-85 [facility] Comment on above: HDL CHOL ATP-III CLA SSIFICATION Cardiovascular RiskHDL > or equal to 60 mg/dL LOWHDL < 40 mg/dL HIGH Serum or plasma total choles terol/high density lipoprotein (HDL) cholesterol mass ratOrdered By: Kyle Pepe on 06-30-2022 Cholesterol.total/Choles terol in HDL [Mass ratio] 2.1 {ratio} <5.0 [facility] TSH DL <= 0.005 mIU/L QnOrde red By: Kyle Pepe on 06-30-2022 TSH Qn 1.66 m[IU]/L 0.45-5.33 [facility] Thyroid Stim Hormone w/Rflxo n 06-30-2022 Thyroid Stim Hormone w/Rflx 1.66 u[iU]/mL Normal 0.45-5.33 [facility] Comment on above: Performed By: #### T SH3 wRFLX, [id number], LIPID #### [address] Transfer Documentson 022 Transfer Documents [id number]# 1.00CD:127 [facility] Triglyceride [Mass/volume] i n Serum or PlasmaOrdered By: Kyle Pepe on 06-30-2022 Triglyceride [Mass/Vol] 20 mg/dL 35-149 [facility] Comment on above: TRIG ATP III CLASSIF ICATIONTRIG less than 150 mg/dL NormalTRIG 150-199 mg/dL Borderline highTRIG 200-500 mg/dL High TRIG greater than 500 mg/dL Very highStandard traceable to the Center for Disease Conrtrol and Prevention (CDC) test method. Valuables Checkliston 2021 Valuables Checklist [id number]# 1.00CD:127 [facility] Vitamin D 25 Hydroxy Totalon 06-30-2022 Vitamin D 25 Hydroxy Total 22.3 ng/mL Low 30-100 [facility] Comment on above: Result Comment: NOEMÍ MIN D STATUS 25([place])VITAMIN D RANGE (ng/mL) Deficient <20 Insufficient 20 to <30 Sufficient 30 to 100 Reference: Constantino MF,Claudio AGUILAR, Martin IBRAHIM, et al. Evaluation,treatment, and prevention of vitamin D deficiency; an Endocrine Society clinical practice guideline. JCEM. 2010; 96(7):1911-30. PERFORMED BY: [facility] [address] [id number] PATHOLOGIST SHIPPING ORDER CLERK JUNIE ARMENDARIZ M.D. Performed By: #### T SH3 wRFLX, [id number], LIPID #### [facility] [address] [address] [facility] Acetamnphn Lvlon 06-29-2022 Acetaminophen [Mass/Vol] ug/mL Low [facility] Comment on above: Performed By: #### 2 934968, 8286365, 8906031, 78026336, 3778395, 9055789 ####[facility] [address] [place] [address] Auto Diffon 06-29-2022 Basophils/100 WBC (Bld) 0.6 % Normal 0.0-2.[address] [facility] Comment on above: Order Comment: Order Added by Discern Expert. Performed By: #### 2 369957, 6497376, 3620366, 49944693, 5920992, 2481559 ####[facility] [address] [place] [address] Basophils/Leukocytes Auto (Bld) [Pure # fraction] 0.1 E9/L Normal 0.0-0.2 [facility] Comment on above: Order Comment: Order Added by Discern Expert. Performed By: #### 2 690685, 6865181, 8170502, 56584520, 7677554, 2969450 ####[facility] [address] [place] [address] Eosinophils/100 WBC (Bld) 2.9 % Normal 0.0-8.0 [facility] Comment on above: Order Comment: Order Added by Discern Expert. Performed By: #### 2 591332, 7233629, 8424568, 77455129, 9294145, 8198808 ####[facility] [address] [place] [address] Eosinophils/Leukocytes Auto (Bld) [Pure # fraction] 0.3 E9/L Normal 0.0-0.5 [facility] Comment on above: Order Comment: Order Added by Discern Expert. Performed By: #### 2 446003, 5057132, 8243462, 41543627, 4367672, 4534678 ####[address] [place] [address] Lymphocytes/100 WBC (Bld) 24.2 % Normal 14.0-50.0 [facility] Comment on above: Order Comment: Order Added by Discern Expert. Performed By: #### 2 989154, 5444617, 5369767, 33139702, 4008562, 1688012 ####[address] [place] [address] Lymphocytes/Leukocytes Auto (Bld) [Pure # fraction] 2.3 E9/L Normal 1.0-4.0 [facility] Comment on above: Order Comment: Order Added by Discern Expert. Performed By: #### 2 802484, 6750741, 6537386, 20710003, 7385077, 3983011 ####[address] [place] [address] Monocytes/100 WBC (Bld) 6.5 % Normal 4.0-14.[address] [facility] Comment on above: Order Comment: Order Added by Discern Expert. Performed By: #### 2 258570, 8430145, 5559979, 58414092, 1424143, 8396704 ####[address] [place] [address] Monocytes/Leukocytes Auto (Bld) [Pure # fraction] 0.6 E9/L Normal 0.2-1.0 [facility] Comment on above: Order Comment: Order Added by Discern Expert. Performed By: #### 2 429820, 5875206, 8357470, 54752894, 4130754, 7076941 ####[address] [place] [address] Neutrophils/100 WBC (Bld) 65.8 % Normal 36.0-75.0 [facility] Comment on above: Order Comment: Order Added by Discern Expert. Performed By: #### 2 675672, 8009549, 4599752, 72993786, 3624000, 2101036 ####[facility] [address] [place] [address] Neutrophils/Leukocytes Auto (Bld) [Pure # fraction] 6.4 E9/L Normal 2.0-7.5 [facility] Comment on above: Order Comment: Order Added by Discern Expert. Performed By: #### 2 353673, 5114245, 5181564, 21949344, 1527423, 1980617 ####[facility] [address] [place] [address] CBC w/ Auto Diffon Erythrocyte distribution width (RBC) [Ratio] 11.9 % Normal 10.9-14.2 [facility] Comment on above: Performed By: #### 2 375947, 4677585, 9349276, 75456825, 0116441, 7113129 ####[address] [place] [address] Hematocrit (Bld) [Volume fraction] 37.9 % Normal 34.0-46.0 [facility] Comment on above: Performed By: #### 2 252609, 9603194, 7660670, 33368958, 5075805, 5551380 ####[address] [place] [address] Hemoglobin (Bld) [Mass/Vol] 13.2 g/dL Normal 12.0-16.0 [facility] Comment on above: Performed By: #### 2 626929, 1316328, 9913182, 09131944, 7510131, 8297547 ####[address] [place] [address] MCH (RBC) [Entitic mass] 30.8 pg Normal 27.0-34.0 [facility] Comment on above: Performed By: #### 2 250995, 2680235, 4400470, 61102650, 0731039, 5966443 ####[facility] [address] [place] [address] MCHC (RBC) [Mass/Vol] 34.8 g/dL Normal 31.4-36.0 [facility] Comment on above: Performed By: #### 2 866324, 3621590, 1434888, 44794029, 9542829, 3873463 ####[address] [place] [address] MCV (RBC) [Entitic vol] 88.4 fL Normal 80.0-100.0 [facility] Comment on above: Performed By: #### 2 805761, 4149403, 8638801, 33188912, 7751351, 0946379 ####[address] [address] Platelet mean volume (Bld) [Entitic vol] 8.7 fL Normal 6.4-10.8 [facility] Comment on above: Performed By: #### 2 255445, 2449940, 4690957, 35134984, 7961582, 6870779 ####[address] [address] Platelets (Bld) [#/Vol] 256.0 E9/L Normal 150.0-500.0 [facility] Comment on above: Performed By: #### 2 077630, 1019704, 6669091, 01353626, 9795876, 6554992 ####[address] [place] [address] RBC (Bld) [#/Vol] 4.3 E12/L Normal 4.3-5.9 [facility] Comment on above: Performed By: #### 2 469483, 8980944, 5357115, 88976986, 6128746, 8644600 ####[facility] [address] [place] [address] WBC corrected for nucl RBC Auto (Bld) [#/Vol] 9.7 E9/L Normal 4.0-11.0 [facility] Comment on above: Performed By: #### 2 506729, 9743374, 9168541, 71267987, 2990671, 3780173 ####[facility] [address] [place] [address] CMPon 06-29-2022 Albumin [Mass/Vol] 4.7 g/dL Normal 3.3-5.0 [facility] Comment on above: Performed By: #### 2 419165, 7589337, 2284680, 13823523, 3662942, 0060362 ####[facility] [address] [place] [address] Albumin/Globulin (S) [Mass conc ratio] 1.3 Normal 1.1-2.2 [facility] Comment on above: Performed By: #### 2 379500, 6630879, 7658838, 31757888, 4694693, 9504214 ####[facility] [address] [place] [address] ALP [Catalytic activity/Vol] 59 Int._Unit/L Normal 21-98 [facility] Comment on above: Performed By: #### 2 251214, 5987521, 7067171, 55380565, 6217076, 3705071 ####[facility] [address] [place] [address] ALT No additional P-5'-P [Catalytic activity/Vol] 17 Int._Unit/L Normal 6-46 [facility] Comment on above: Performed By: #### 2 761407, 6042816, 5422898, 60280152, 2130201, 1898865 ####[facility] [address] [place] [address] AST [Catalytic activity/Vol] 20 Int._Unit/L Normal 5-43 [facility] Comment on above: Performed By: #### 2 457152, 9313470, 3604555, 22687271, 0019737, 5264066 ####[facility] [address] [place] [address] Bilirubin [Mass/Vol] 1.1 mg/dL Normal 0.0-1.1 [facility] Comment on above: Performed By: #### 2 211351, 7485164, 9179859, 78806821, 1972512, 0405276 ####[facility] [address] [place] [address] Creatinine [Mass/Vol] 0.7 mg/dL Normal 0.5-1.3 [facility] Comment on above: Performed By: #### 2 303481, 2612132, 4471484, 24021663, 5413383, 3468873 ####[facility] [address] [place] [address] Globulin (S) [Mass/Vol] 3.6 g/dL Normal 1.4-4.0 [facility] Comment on above: Performed By: #### 2 207365, 5934920, 6915855, 65202319, 0381237, 3946085 ####[facility] [address] [place] [address] Protein [Mass/Vol] 8.3 g/dL High 6.0-7.8 [facility] Comment on above: Performed By: #### 2 447614, 2537514, 4461087, 04539291, 1590525, 4066854 ####[facility] [address] [place] [address] Urea nitrogen [Mass/Vol] 9 mg/dL Normal 5-21 [facility] Comment on above: Performed By: #### 2 255233, 2498830, 3677447, 00265175, 2385372, 3111305 ####[facility] [address] [place] [address] Urea nitrogen/Creatinine [Mass ratio] 13 No Units Normal 10-20 [facility] Comment on above: Performed By: #### 2 536816, 4483599, 6090972, 91907851, 5098206, 7851302 ####[facility] [address] [place] [address] Anion gap [Moles/Vol] 14 mmol/L Normal 6-16 [facility] Comment on above: Performed By: #### 2 267446, 7797424, 1993715, 70388385, 7951296, 4180268 ####[facility] [address] [facility] [place] [place] [address] Calcium [Mass/Vol] 9.9 mg/dL Normal 8.9-11.1 [facility] Comment on above: Performed By: #### 2 404196, 0870690, 7408809, 44039749, 8970625, 7483046 ####[facility] [address] [facility] [place] [facility] [place] [address] Chloride [Moles/Vol] 102 mmol/L Normal 101-111 [facility] Comment on above: Performed By: #### 2 214434, 6899444, 3792256, 00061177, 6779836, 9943635 ####[facility] [address] [place] [address] CO2 [Moles/Vol] 24 mmol/L Normal 21-31 [facility] Comment on above: Performed By: #### 2 812939, 6352286, 8359339, 91632976, 2965874, 1790580 ####[facility] [address] [place] [address] Glucose [Mass/Vol] 103 mg/dL Normal 55-199 [facility] Comment on above: Result Comment: If t his glucose result represents a fasting glucose, interpretation should refer to the following reference range: 55-99 mg/dL Performed By: #### 2 979940, 1312514, 9818570, 57460552, 8733335, 9462796 ####[facility] [address] [facility] [place] [facility] [place] [address] Potassium [Moles/Vol] 4.1 mmol/L Normal 3.5-5.3 [facility] Comment on above: Performed By: #### 2 921703, 2927374, 2795787, 14227827, 1761547, 1611680 ####[facility] [address] [place] [address] Sodium [Moles/Vol] 136 mmol/L Normal 135-145 [facility] Comment on above: Performed By: #### 2 207714, 2230225, 8137071, 17077884, 4342327, 3922617 ####[facility] [address] [place] [address] Consent for Treatmenton 06-04 Consent for Treatment [id number] [facility] [id number]#1 .00CD:127 Normal [facility] ED Note-Physicianon 06-29-20 ED Note-Physician Basic Information Time Seen: Arnoldo Wellington PA-C 06/29/2022 17:39 Chief Complaint pt arrives via [facility] for suicidal ideations. pt states she [...] follow-up and disposition. Patient was evaluated by [facility]. She was accepted for placement at [facility] by Dr. Pepe. Assessment/Plan 1. [...] 88.4 fL (06/29/22 18:01:00) MCH: 30.8 pg (06/29/22 18:01:00) MCHC: 34.8 gm/dL (06/29/22 18:01:00) RDW: 11.9 % (06/29/22::00) Platelet: 256 E9/L (06/29/22::00) MPV: 8.7 fL (06/29/22::00) Neutro Auto: 65.8 % (06/29/22::00) Lymph Auto: 24.2 % (06/29/22::00) Ransom Auto: 6.5 % (06/29/22::00) Eos Auto: 2.9 % (06/29/22::00) Basophil Auto: 0.6 % (06/29/22::00) Neutro Absolute: 6.4 E9/L (06/29/22::00) Lymph Absolute: 2.3 E9/L (06/29/22::00) Ransom Absolute: 0.6 E9/L (06/29/22::00) Eos Absolute: 0.3 E9/L (06/29/22::00) Basophil Absolute: 0.1 E9/L (06/29/22::00) Glucose Lvl: 103 mg/dL (06/29/22::00) BUN: 9 mg/dL (06/29/22::00) Creatinine: 0.7 mg/dL (06/29/22::00) eGFR: >60 (06/29/22::) eGFR AA: >60 (06/29/22::00) BUN/Creat Ratio: 13 (06/29/22::00) Sodium Lvl: 136 mmol/L (06/29/22::00) Potassium Lvl: 4.1 mmol/L (06/29/22::00) Chloride: 102 mmol/L (06/29/22::00) CO2: 24 mmol/L (06/29/22::00) AGAP: 14 mEq/L (06/29/22::00) Calcium Lvl: 9.9 mg/dL (06/29/22::00) Alk Phos: 59 Int._Unit/L (06/29/22 18:01:00) ALT: [...] Comment on above: Performed By: #### 2 596098 ####[address] [address] Rapid COVID Antigen ([facility])on 06-29-2022 Rapid COV Int NEG Ctl Pass Normal Fis [facility] Comment on above: Performed By: #### 2 [id number] ####[address] [address] Rapid COV Int POS Ctl Pass Normal [facility] Comment on above: Performed By: #### 2 [id number] ####[address] [address] SARS-CoV+SARS-CoV-2 (COVID-19) Ag IA.rapid Ql (Resp) Not detected Normal Not Detected [facility] Comment on above: Result Comment: The MicroEnsure? System for Rapid Detection of SARS-CoV-2 is [...] other viruses or pathogens; and, in the [facility], this test is only authorized for the duration of the declaration that circumstances exist justifying the authorization of emergency use of in vitro diagnostics for detection and/or diagnosis of the virus that causes COVID-19 under Section 564(b)(1) of the Act, 21 U.S.C. ? 360bbb-3(b)(1), unless the authorization is terminated or revoked sooner. Performed By: #### 2 [id number] ####[facility] [address] [place] [address] ADMITTED TO INTENSIVE CARE UNIT FOR CONDITION OF INTEREST:FIND:PT: NO Normal [facility] Comment on above: Performed By: #### 2 [id number] ####[address] [address] EMPLOYED IN A HEALTHCARE SETTING:FIND:PT: NO Normal [facility] Comment on above: Performed By: #### 2 [id number] ####[address] [address] FIRST TEST FOR CONDITION OF INTEREST:FIND:PT: YES Normal [facility] Comment on above: Performed By: #### 2 [id number] ####[place] [address] HAS SYMPTOMS RELATED TO CONDITION OF INTEREST:FIND:PT: NO Normal [facility] Comment on above: Performed By: #### 2 [id number] ####[place] [address] HOSPITALIZED FOR CONDITION OF INTEREST:FIND:PT: NO Normal [facility] Comment on above: Performed By: #### 2 [id number] ####[place] [address] STATUS:FIND:PT: NO Normal [facility] Comment on above: Performed By: #### 2 [id number] ####[place] [id number] RESIDES IN A [facility] C[facility] SETTING:FIND:PT: NO Normal [facility] Comment on above: Performed By: #### 2 [id number] ####[address] [address] Salicylateon 06-29-2022 Salicylates [Mass/Vol] mg/dL Low 6-29 [facility] Comment on above: Performed By: #### 2 783778, 8626348, 6261952, 70962328, 1908050, 6129128 ####[address] [address] U BetaHcg Qualon 06-29-2022 HCG.beta subunit (U) [Moles/Vol] Negative Normal [facility] Comment on above: Performed By: #### 2 7955039 ####[facility] [address] [place] [address] U Drug Screenon 06-29-2022 Amphetamines Screen method >1000 ng/mL Ql (U) Negative Normal Negative [facility] Comment on above: Result Comment: Nega tive Cutoff: <1000 ng/mL Performed By: #### 2 668905 ####[facility] [address] [place] [address] Barbiturates Screen Ql (U) Negative Normal Negative [facility] Comment on above: Result Comment: Nega tive Cutoff: <200 ng/mL Performed By: #### 2 571349 ####[address] [place] [address] Benzodiazepines Ql (U) Negative Normal Negative [facility] Comment on above: Result Comment: Nega tive Cutoff: <200 ng/mL Performed By: #### 2 941917 ####[facility] [address] [place] [address] Cocaine Ql (U) Negative Normal Negative [facility] Comment on above: Result Comment: Nega tive Cutoff: <300 ng/mL Performed By: #### [id number] ####[facility] [address] [place] [address] Opiates Screen Ql (U) Negative Normal Negative [facility] Comment on above: Result Comment: Nega tive Cutoff: <300 ng/mL Performed By: #### [id number] ####[facility] [address] [place] [address] Phencyclidine Screen method >25 ng/mL Ql (U) Negative Normal Negative [facility] Comment on above: Result Comment: Nega tive Cutoff: <25 ng/mL These drug screen results are to be used for medical (i.e., treatment) purposes only. Unconfirmed drug screening results must not be used for non-medical purposes (e.g., employment testing, legal testing). Performed By: #### 2 [id number] ####[address] [place] [address] Tetrahydrocannabinol Screen method >50 ng/mL Ql (U) Negative Normal Negative [facility] Comment on above: Result Comment: Nega tive Cutoff: <50 ng/mL Performed By: #### 2 [id number] ####[address] [place] [address] eGFRon 06-29-2022 GFR/1.73 sq M.predicted among blacks MDRD (S/P/Bld) [Vol rate/Area] mL/min/{1.73_m2} Normal >=59 [facility] Comment on above: Order Comment: Order added by Discern Expert. Result Comment: eGFR is race adjusted. AA=. Performed By: #### 2 [id number] ####[address] [place] [address] GFR/1.73 sq M.predicted among non-blacks MDRD (S/P/Bld) [Vol rate/Area] mL/min/{1.73_m2} Normal >=59 [facility] Comment on above: Order Comment: Order added by Discern Expert. Result Comment: Locomotive Pipe F[employer] vadim kidney disease could be indicated at eGFR's of less than 60 mL/min/1.73m2. Kidney failure is indicated at less than 15 mL/min/1.73m2. Performed By: #### 2 [id number] ####[address] [place] [address] Coding Summary.on 06-16-2022 Coding Summary. CD:[id number] G h0bWw+PGhlYWQ+XB1UQKU gL32ilTGjaH4FO9jUWN9J XBOEWAFDFQ9FZD3tmAV3S FpoW6VxqhIk SftmoOHsGQ39AKd3LID6w XvdLVljqB3xhRLnV9m9Fx LdDE74aG87BFhxHIUmSqF 3LjZpbjsgbWFy A0nmWeSehTMyRot+PHRhY mxlIHdpZHRoPScxMDAlJy MwvGjoJT5zPf8rCYSdOEC vbGxhcHNlOiBj y7dwNACdCPyqAP5qeGsuS 0AowGW8IXIyi0n3Ok27xE I+RLTsCTR5tIaeWObyx33 6AgXdw1jpSID4 sILkUFhaVSW0R88cs1Q5D BOmENYfBWZ0fPI1eF1gkL vulmkzY5QfuVZtHbI8III 1qPQmfG9xyRet xzsntA3tPin+J77TJK0EM HNJKV0WMbf2G8HdOaeoiR I+TI98DIMzEJ52fYHtbWV ad9yoyWi9YlXz PZPqVER7hAogYKdtq5AbL MPdY38geVTug3J5GRRreG echEIlXbGilQG9uE3eVXi wnehaq1jmgmjc Yjhsb3jeow62nQ73Q93sM LceVSLsFDP4YUAtJNAkgS mksz0yxR6lOn8+ZGzdn0g ku0kztKd4WpLl NRLvhfZejOxzHAA7f1YjS i42I4RfzPmcd7ApDmp6cx 54aZUrt8I6vYV4GHtfZTE voN7nGYcuTfG9 EBRkSlCzdH25mNCtTCoyQ l3wwMwjoKvyHL6eDHOhiq zcUENfmB4jSLVnxSLcuQw xHX0yVABlsoyk w159GdXqUVO7AHUglPQqH 3DaxO2dBwRlBZMoMRZyB5 HsdTDzOIueD091SRepLvH 2ONWpctRyN2Kt CWEceRqjFaZ1e7R2Kx3Oo 1LgbdxpFUE1UDzmCEGeBx H3PmOpQlA1N7AeKpo6TAC bjDflPH6wX8Xd LGNmtodepkjkwDF4XWYwF NMkiP16gNBgDCicRf6sk1 T5e527FZGzDCKdqT68Nj1 udDogMTBwdCBU pG4draytt5xtdzfyKtUiQ NKdERh9RPf3HPVsrPcwPk SwTOU8GwE2NTP5eTSznL9 veWfynuctpZ5v Oyc+H72mbS3eCLF8VLG9z zpoRONxovAvQP48TL56K8 RyPjwvdGFibGU+PGRpdiB vrTenQU2lQzIp c3lnm2XdMJwoN0VsCEIbE UokSdw5HQAqQKV5dTZ8fS 3bCAXvAUjfp2I7oBT8B4R icoCjyg5wl6it WGJiMOavZ63ixLEni8L8M CHljJA6YTVizKxwQzGhtT 93Oyc+UDGszHgcc8TpLzc sm6zvw4gzaBx1 XrEyHNYqonTynUucHEM5x 1IuZn98V61tEKflNWDnMO CpGXZgPNHtbGggoi0llH5 wIi8+PGNvbCB3 kOQ1iT7eYJGoUtC5ZKxaS 170DjQgxJKkGtugt0smo0 zqcDd1SgOsOCEcinAeyXy uILR0v3DbRu27 A06nIYqfYZHtYQNpOJCeL PDesAbpft7tzZ1dDn8+PC 6an4gctq34qF95iXT+PHR yUJU5aXiaVBgr WWOmmQ1aCYtiNiG4EIAbD vXwuZ36gWZtZEgmJl1gsA vvpVylHJ2jDCWuezozx16 9HzPmx8uiMCFz vVLeFXmhWAR3V44od0G1V GVvDULzLSU9cDZ7iR0vmS lnbjogbGVmdDsgdmVydGl jAEzzQVfyL827 IHRvcDsnPlBhdGllbnQgT yVvYGe2X2HuAgz4MKUurA npRJ6tvKYlZEnrRr8axPw sbYxtZQ4tRXMq kifex563WpWpu4llDAVhs LXyTTpsUIO1Z75gb5I3PM JnBJKaTBJ3iIY6mT7htOu nbjogbGVmdDsg ghMgzOysCNbdPQlsV080S HRvcDsnPkJpcnRoIERhdG V8OP52QW75jTQgw3A3bGR 0U0IgHQZwnubv xyblqNV0ZWYqTCUjwS35H g8qlDivRg3lDJHqMNZ8HB MpzYGbL6CxxD6cPxOfPWY jIMSzK8BniCDx KObfH341QWzkVnQ9UNHxk vUxG0YsWMJoxGvqMpD2m2 L3Rm8PG6N8VS60CV06uFH yu8X7cMF8P7Ah XYUjcmpsyjxfaQZ0CDTbJ HIloT46So4cgXfpSl4fZQ HpLOA6UXQhvEKaA5AbeL4 yOiAjMDAwMDAw H9JwbDJpNWmoC201FKrsY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 presents today for a routine obstetrics appointment. Patient is currently 12w5d . Patient states she is doing well but has complaints of being tired due to current . Patient has verbalizes frequent movement. labor precautions was discussed/given and patient was instructed to perform kick counts three times a day. Orders Placed This Encounter Procedures POCT urinalysis dipstick manually resulted Follow Up: Patient is to return to office in 4 week for routine OB appointment. 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 Please schedule follow up. [facility] 02-27-2025 History of Present illness Narrative Reason for Appointment: Patient ID: Rosalva Hardin is a 29 y.o. female who presents for Amenorrhea Patient presents today for a Nurse OB Intake appointment. Patient is 9w2d with a Estimated Date of Delivery: 09/30/25 OB History Para Term AB Living 2 1 1 1 SAB IAB Ectopic Multiple Live Births 1 # Outcome Date GA Lbr Cahi/2nd Weight Sex Type Anes PTL Lv 2 [...] Medical History: Diagnosis Date Anxiety Blighted ovum ([facility]) 2020 BMI 21.0-21.9, adult Chlamydia 11/08/2020 [...] Vitals: Estimated body mass index is 24.11 kg/m as calculated from the following: Height [...] dipstick manually resulted , unspecified gestational age ([facility]) - Type and screen; Future - ABO/Rh; Future - CBC and differential - Hemoglobin A1c - RPR - Rubella antibody, IgG - Hepatitis B surface antigen - Hepatitis C antibody - HIV-1 and HIV-2 antibodies - Rapid drug screen, urine; Future Encounter for supervision of normal first in first trimester ([facility]) - Rapid drug screen, urine; Future Gastroesophageal reflux in ([facility]) - famotidine (Pepcid) 20 MG tablet; Take [...] drink 6-8 glasses of water a day, eat no raw or undercooked meat, and stay away from [facility]. Patient has also been advised to not change litter boxes and eat 6 small meals a day. Patient has been consulted regarding the do's and don'ts of . Patient was given labs and all questions and concerns were answered. Follow Up: Patient is to have labs drawn at directed and return to office for initial OB appointment with provider. Patient may call office as needed with any concerns or questions. Nurse Visit Completed by: Suzanna Moses MA documented in this encounter [facility] 10-11-2023 History of Present illness Narrative Reason for Appointment: Patient ID: Rosalva Hardin is a 28 y.o. female who [...] of: [place]IA Forman documented in this encounter [facility] 11-13-2022 Note HNO ID: [id number] Author: Payton Wilson RT(R) Service: ? Author Type: Technologist Type: Progress Notes Filed: 11/13/2022 9:43 AM Note Text: Radiology Service Progress Note PATIENT NAME: Rosalva Hardin DATE OF SERVICE: November 13, 2022 [...] RT Jarad(R) November 13, 2022 9:43 AM [facility] 09-06-2022 Note PROCEDURE: XR KNEE L T 4V or > HISTORY: Pain in left knee ; acute COMPARISON: None. FINDINGS: BONES:No fracture, acute abnormality, or significant arthropathy. SOFT TISSUES:No visible soft tissue swelling. EFFUSION:None visible. OTHER: Negative. IMPRESSION: 1. Normal examination. Electronically authenticated by: BRYAN ESPINO Date: 2022-09-06 13:41 [facility] 07-03-2022 Discharge summary Note Date/Time July 03, 2022 11:08am [facility] [address] [place] [address] Discharge Summary Signed Patient: Rosalva Hardin MR#: [id number] : 1995 Acct:[id number] Age/Sex: 27 / F Adm Date: 2 Loc: Room: [address] [place] [address]: Kyle Pepe MD Copies to: [...] Psych nurse practitioner and the therapist at [facility] in [place].Patient states she has been diagnosed with generalized [...] Reports childhood trauma Living: With boyfriend Employment: [employer] Patient was started on Cymbalta. She tolerated [...] No activity restrictions. Instructions: Anxiety, Adult (DC), [facility] [place] Instructions Stand Alone Forms: Work/School Release Form Prescriptions: New trazodone 50 mg Tablet 50 mg PO QHS PRN (Reason: Insomnia) Qty: 30 0RF duloxetine 30 mg Capsule,Delayed Release(Dr/Ec) 30 mg PO QHS 30 Days Qty: 30 0RF Continued Ajovy Autoinjector 225 mg/1.5 mL Auto-Injector 225 mg SUBCUT QWEEK Follow Up: [facility] Counseling Hotline [Outside] [facility] ([facility]) [Outside] - 07/07/22 10:45 am (Psychiatry: 07/07/22 @ 10:45am with Fiona Grier [employer] Therapy: Sunday07/14/22 @ 11:00am with Payton ) Documented By: Kyle Pepe MD 07/03/22 1107 Signed By: <Electronically signed by Kyle Pepe MD> 07/03/22 1324 [facility] Work Phone: 1(664) 860-874710-30-2022 Progress note Author Kyle Pepe [facility] July 02, 2022 12:56pm Note Date/Time July 02, 2022 1 2:55pm [facility] [address] [place] [address] Psychiatry Progress Note Signed Patient: Rosalva Hardin MR#: [id number] : 1995 Acct:[id number] Age/Sex: 27 / F Adm Date: 2 Loc: Room: [address] [place] [address] Type : ADM IN Attending Dr: Kyle [...] <Electronically signed by Kyle Pepe MD> 07/02/22 [facility] Work Phone: 1(336) 679-482810-29-2022 Progress note Author Kyle Pepe [facility] July 01, 2022 12:46pm Note Date/Time July 01, 2022 9 :01am [facility] [address] [place] [address] Psychiatry Progress Note Signed Patient: Rosalva Hardin MR#: [id number] : 1995 Acct:[id number] Age/Sex: 27 / F Adm Date: 2 Loc: Room: 2K6422-1 Type : ADM IN Attending Dr: Kyle Pepe MD Copies to: ~ Date of Service: 07/01/2022 Subjective Subjective Narrative: Ms. Hardin is states she is doing well today. Patient reports her depression andanxiety have improved and rates her depression a /10. Denies current suicidal thoughts. She was started [...] therapy. She follows with outpatient counseling at [facility]. Continue Cymbalta 30 mg daily Monitor suicidal behaviors for safety of self (15-minute face check) Recommend attending groups and psychoeducation for building coping skills Risks, benefits and indications of medications were discussed with the patient Documented By: Areli Barbosa DO, RES 07/01/22 0901 Signed By: <Electronically signed by DO CHERRY Barbosa> 07/01/22 1041 <Electronically signed by Kyle Pepe MD> 07/01/22 1246 [facility] Work Phone: [phone]) 697-185310-28-2022 History and physical note Author Kyle Pepe [facility] June 30, 2022 4:32pm Note Date/Time June 30, 2022 9 :25am [facility] [address] [place] [address] Psychiatry H&P Signed Patient: Rosalva Hardin MR#: [id number] : 1995 Acct:[id number] Age/Sex: 27 / F Adm Date: 2 Loc: Room: [address] [place] [address] Type: ADM IN Attending Dr: Kyle Pepe MD Copies to: MD Shannon Gillespie MD, DO, RES~ Date of Service: 06/30/2022 HPI History of Present Illness History of present illness: Ms. Hardin is a 27 year old female that was admitted to [facility] for attempted overdose. Patient states [...] Psych nurse practitioner and the therapist at [facility].Patient states she has been diagnosed with generalized [...] Reports childhood trauma Living: With boyfriend Employment: [employer] Mental status exam Appearance: Grossly normal Mental [...] Documented By: Areli Barbosa DO, RES 06/30/22 0916 Signed By: <Electronically signed by DO CHERRY Barbosa> 06/30/22 1211 <Electronically signed by Kyle Pepe MD> 06/30/22 1632 [facility] Work Phone: [phone]) 882-740208-02-2022 NotePROCEDURE: XR WRIST LT MIN 3 V HISTORY: Bone injury ; acute left wrist pain after falling COMPARISON: None. FINDINGS: BONES:No fracture, acute abnormality, or significant arthropathy. SOFT TISSUES:No visible soft tissue swelling. EFFUSION:None visible. OTHER: Negative. IMPRESSION: 1. No acute bone abnormality. Electronically authenticated by: BRYAN ESPINO Date: 2022-04-04 14:16[facility] Diagnosis Onset Date Resolution Status Anxiety acute Suicidal ideation acute Suicide attempt by drug overdose acute [facility] Work Phone: Evaluation note* Diagnosis S/P documented in this encounter [facility]* Diagnosis Internal derangement of left knee Unspecified internal derangement of knee [facility] Diagnosis Missed menses , unspecified gestational age ([facility]) Encounter for supervision of normal first in first trimester ([facility]) Gastroesophageal reflux in ([facility]) documented in this encounter [facility]* Diagnosis First trimester ([facility]) state, incidental 12 weeks gestation of ([facility]) [facility] Diagnosis Well woman exam with routine gynecological exam Routine gynecological examination Second trimester ([facility]) state, incidental 16 weeks gestation of ([facility]) Vaginal discharge Leukorrhea, not specified as infective STD exposure Screening, , for anatomic survey ([facility]) Encounter for anatomic survey [facility] Additional Instructions Regular diet. No activity restrictions.[facility] Work Phone: Reason for referral (narrative)* Diagnostic Procedure Only (Routine) - Closed Specialty Diagnoses / Procedures Referred By Contac t Referred To Contact XR IMAGING Diagnoses Internal derangement of left knee Procedures XR KNEE GENERAL 4V AP BOTH/PA BOTH/LAT/MERC LEFT RADIOLOGIC EXAM KNEE COMPLETE 4/[place] [address] [place] [address] [place] [address] Referral ID Status Reason Start Date Expiration Date V isits Requested Visits Authorized [id number] Closed Auto-Generate d Referral 10/22/2022 09/02/2023 1 1 [facility] Diagnostic Procedure Only (Routine) - Closed Specialty Diagnoses / Procedures Referred By Contac t Referred To Contact XR IMAGING Diagnoses Internal derangement of left knee Procedures XR KNEE GENERAL 4V AP BOTH/PA BOTH/LAT/MERC LEFT RADIOLOGIC EXAM KNEE COMPLETE 4/[place] [address] [place] [address] [place] [address] Referral ID Status Reason Start Date Expiration Date V isits Requested Visits Authorized [id number] Closed Auto-Generate d Referral 10/22/2022 09/02/2023 1 1 [facility] Summary Purpose Family History Relationship Condition Age [...] section and content) DATE CREATED AUTHOR 07/03/2022 [facility] DATE CREATED AUTHOR AUTHOR'S ORGANIZ ATION 10/12/2022 [facility] DATE CREATED AUTHOR AUTHOR'S ORGANIZ ATION 11/15/2022 [facility] DATE CREATED AUTHOR AUTHOR'S ORGANIZ ATION 06/10/2023 Rex Ramos [facility] DATE CREATED AUTHOR AUTHOR'S ORGANIZ ATION 03/20/2025 [facility] DATE CREATED AUTHOR AUTHOR'S ORGANIZ ATION 03/24/2025 [facility] EPIC Care Teams (unrecognized sec tion and content) Team Status: Inactive Member Role Status Dates Shannon Glez MD Primary Care Provider Active Kyle Pepe MD Admit Provider, Attending Provider Active Team Status: Active Member Role Status Dates Shannon Glez MD Primary Care Provider Active Reason for Visit (unrecogniz ed section and content) Reason Comments Post-op Visit Incision check Reason Comments Amenorrhea Reason Comments Routine Visit Reason Comments Routine Visit Well Women Visit STI Screening Source Comments (unrecognize d section and content) In the event this informatio n is protected by the Federal Confidentiality of Alcohol and Drug Abuse Patient Records regulations: The Federal rules restrict any use of the information to criminally investigate or prosecute any alcohol or drug abuse patient.[facility] FOR RECORDS PERTAINING TO PATIENTS WHO ARE [...] BE BASED ON THE PRIMARY CLINICAL RECORDS. [facility]. provides no warranty or guarantee of the accuracy or completeness of information in this document.
[2025-04-22 11:08] LABS: Age Gdln ACOG Testing Note (.); IGP, rfx Aptima HPV ASCU Note (.)
== END 2025-04-20 15:22 | disposition home or self-care (01) ==
LOC: LAB 15:21
PROVIDERS: Visit Provider Physician Assistant
DX: Z01.419 Encounter for gynecological examination (general) (routine) without abnormal findings (principal)
CPT/HCPCS: 88175

== ENCOUNTER 2025-06-30 09:51 | Outpatient (OUT) | payer MEDICAID, SELFPAY ==
--- OUTSIDE RECORDS SUMMARY | 2025-06-30 09:56 | XMS_ITS | Patient Health Record ---
Author Organization [facility] es Address [address] [place] [address] Care Team Providers Care Water Taxi Captain Name Role Phone Dominic Morenoreilly Primary Care Provider [phone] Allergies No Known Allergies Reason For Referral No Information Medications Medication SIG (Take, Route, Frequency, Duration) Notes Start Date End Date Status Cymbalta 30 MG Capsule Delay ed Release Particles 1 capsule Orally Once a day; Duration: 3 0 day(s) Not-Taking/PRNhydrOXYzine HCl 25 MG Tablet1 tablet as needed Orally twice a day (bid); Duration: 30 day(s)07/24/2022Not-Taking/PRNtraZODone HCl 50 MG Tablet1 tablet Orally Once a day; Duration: 30 day(s)Not-Taking/PRN Immunizations Vaccine Route Administration Date Status Comme nts DTap (DAPTACEL) Unknown 1997 Administered DTap (DAPTACEL)Eluvuws3808/06/1997AdministeredDTap (DAPTACEL)Zczaiug7310/08/1997 AdministeredDTap (DAPTACEL)Wcsgkiu6903/02/2000AdministeredDTap (DAPTACEL)Unknown 04/01/2002AdministeredHepA - Havrix (ped/adol 2 dose)Wrunifo3003/20/2007 AdministeredHepatitis A XUABRUqanico05/11/2008dministeredHepatitis B ADULT Qdktghr46 1997AdministeredHepB - Engerix (Peds/Adol)Fjrdxbf2305/27/1997 AdministeredHepB - Engerix (Peds/Adol)Imaauxn7710/08/1997AdministeredHib - ActHIB Dnnovsj7105/27/1997AdministeredHib - OdhFRCLnhnsfb1997AdministeredHib - UkeZWHXlszdod84/05/1998AdministeredHib - WegMOSNmwttmd88/30/2000AdministeredHPV - Gardasil 4Ewkkbdc47/11/2008dministeredHPV - Gardasil 1Kwuijjb52/27/2009 AdministeredHPV - Gardasil 2Uizqgbo19/12/2009dministeredInfluenza 3+ PRIVATE Zhcriyl0508/13/2008dministeredInfluenza 3+ RUUKKEEEvzafgp91/26/2013dministered Meningococcal (MENACTRA)Wfdlcwi9102/12/20094416QwrcohqpnlzjFJUTkcpozg21/30/2000 KodlrbtwwekkPIEDzurukl01/30/2002AdministeredPolio, VILYloyyog1997 AdministeredPolio, XORWgeqwpr1997AdministeredPolio, RUQIusrutk38/30/2000 AdministeredPolio, JVAQaxifse12/30/3652QhpztxacefngFAJDGnapwef96/12/2009 XejvxvxjjbglVNOPWqznykk22/24/2024AdministeredVaricella (VARIVAX)Unknown 03/02/2000Administered Social History Tobacco Use: Social History Observation Description Date Details (start date - stop date) Never Smoker NA - NA Social History GeneralSocial InfoQuestionAnswerNotesTransition of Care:ER/UC/hospital since last office visit?Yes, report on fileBELLEVUE HOSP- LACERATIONSpecialist seen since last office visit?NoDepression Screening (PHQ-9):Little interest or pleasure in doing thingsNot at allFeeling down, depressed, or hopelessNot at all Trouble falling or staying asleep, or sleeping too muchNot at allFeeling tired or having little energyNot at allPoor appetite or overeatingNot at allFeeling bad about yourself-or that you are a failure or have let yourself or your family downNot at allTrouble concentrating on things, such as reading the newspaper or watching televisionNot at allMoving or speaking so slowly that other people could have noticed. Or the opposite being so fidgetyor restless that you have been moving around a lot more than usualNot at allThoughts that you would be better off , or of hurting yourself in some wayNot at allTotal Score0 Substance abuse/mental health issues of patient/familyPatient -DeniesAbility to understand healthcare/treatmentPatient:GoodTobacco Screen:Are you a:never smoker Sexual Hx:Had sex in the last 12 months (vaginal, oral, or anal)?Yes? withMen only? Use protection?No? Prevention Strategies discussed:OtherHave you ever had an STD?Yes? Chlamydia?YesSocial/Support Concerns:Patient:NoAlcohol Screening:Did you have a drink containing alcohol in the past year?Yes? How often did you have a drink containing alcohol in the past year?Two to four times a month (2 points) ? How many drinks did you have on a typical day when you were drinking in the past year?1 or 2 (0 points)Azaiur2YijspcwjzvrwjyVberclzzJobskuvqf affecting healthPoor/Risky Behaviors:Denies-Communication Barrier:Language Barrier?:No Tobacco Use:Social InfoQuestionAnswerNotesTobacco Control (Standard)Tobacco use: Nonsmoker Problems Problem Type SNOMED Code ICD Code Onset Dates Problem Status W/U Status Risk Notes Problem Anxiety (58126530) Anxiety (F41.9) ActiveconfirmedProblemChronic fatigue syndrome (68762362)Chronic fatigue (R53.82)ActiveconfirmedProblemEpisodic mood disorder (40675371619723)Episodic mood disorder (F39)ActiveconfirmedProblemPosttraumatic stress disorder (22198913)Post traumatic stress disorder (PTSD) (F43.10)ActiveconfirmedProblem Body mass index 20-24 - normal (133433554)BMI 20.0-20.9, adult (Z68.20)Active confirmed Plan Of Treatment Pending Test Test Name Order Date CBC w/ Auto Diff 02/28/2024 CMP 02/28/2024 Iron 02/28/2024 Insurance Providers Payer Name Payer Address Payer Phone Subscriber Number Group Number Insured Name Patient Relationship to Insured Coverage Start Date Coverage End Date BH [employer] [place] Medicaid [address] [address] [facility] [place] [address] [id number] Sara HARDIN - patient is the wbleuwy0210/04/2023H Wrap CFC HumanaPO [address] [place] [id number], ELISSASelrick - patient is the alqftxg1510/04/2023zBH [employer]-termed 10/03/22[address] [place] [id number], ELISSASelrick - patient is the [id number] MEDICAID CFC after [employer]-termed 10/03/22[address] [place] [id number], ELISSASelf - patient is the [id number] CFC after [employer]-termed 10/03/22[address] [place] [id number], ELISSASelrick - patient is the [id number] ADVANTAGE- termed 10/03/22[address] [place] [phone], GLENDABrandonrick - patient is the [id number] DQ [employer]- termed 10/03/22[address] [place] [phone] [id number], GLENDABrandonrick - patient is the [id number] zDental MEDICAID CFC after [employer]-termed 10/03/[address] [place] [id number], ELISSASelf - patient is the [id number] [facility] [address] [place] [phone], ELISSASelf - patient is the insured /[facility]PO [address] [place] [address] [id number], ELISSASelf - patient is the insured /nthem Medical [place] MedicaidPO [address] [place] [id number], ELISSASelf - patient is the insured /09/2022Wrap [facility]PO [address] [place] [address] [id number], ELISSASelf - patient is the insured /[place]ID [address] [place] [phone] [id number], ELISSASelf - patient is the Medical (General) History Medical History History ICD Code Anxiety MiscarriageSurgical History Surgery Date(Month/Year) D&C 07/2021 09/2023 Hospitalization History Reason Date(Month/Year) Child
--- OUTSIDE RECORDS SUMMARY | 2025-06-30 09:56 | XMS_ITS | Clinical Summary ---
Author Organization [facility] Address [address] [place] [address] Care Team Providers Care Electric Meter Tester Helper Name Role Phone None, Provided MD Primary Care Provider Unavaila ble Allergies No known active allergies Medications No known medications Active Problems ProblemNoted DateDiagnosed DatePatellar maltracking, left04/24/2023Sprain of left knee04/24/2023atellar dislocation, left, initial nasfrholk44/22/2023 CommentsYes Social History Tobacco UseTypesPacks/DayYears UsedDateSmoking Tobacco: NeverSmokeless Tobacco: Never Tobacco Cessation:Counseling Given: Not Answered Alcohol UseStandard Drinks/WeekCommentsNever0 (1 standard drink = 0.6 oz pure alcohol)Humiliation, Afraid, Rape, and Kick questionnaireAnswerDate Recorded Within the last year, have you been afraid of your partner or ex-partner?No 12/31/2023Within the last year, have you been humiliated or emotionally abused in other ways by your partner or ex-partner?No12/31/2023Within the last year, have you been kicked, hit, slapped, or otherwise physically hurt by your partner or ex-partner?No12/31/2023Within the last year, have you been raped or forced to have any kind of sexual activity by your partner or ex-partner?No12/31/2023HQ-2 AnswerDate RecordedPatient Health Questionnaire-2 [id number] CommentsYesSex and Gender InformationValueDate RecordedSex Assigned at BirthNot on fileLegal CxgMgcgkd17/08/2023 4:32 PM EDTGender IdentityNot on fileSexual OrientationNot on file Last Filed Vital Signs Vital SignReadingTime TakenCommentsBlood Pressure--Pulse--Temperature-- Respiratory Rate--Oxygen Saturation--Inhaled Oxygen Concentration--Rribow16 kg (150 lb)04/24/2023 10:54 AM WXHJenhik989 cm (5' 3 )04/24/2023 10:54 AM EDTBody Mass Index26.57004/24/2023 10:54 AM EDT Plan of Treatment Health MaintenanceDue DateLast DoneCommentsVaricella Vaccines (2 of 2 - 2-dose childhood series)Depression Owgnchmbi13/27/2009Pap Smear 2018Adult Rcehqgq48COVID-19 Vaccine ( season) 2025Influenza Vaccine (#1), 08/13/2008Zoster Vaccines (1 of 2)HIB ZcfxeqtmAzztdxtbt64/30/2000, 1997, 1997, Additional history existsIPV DpslwannNrdtuaxre34/30/2002, 03/02/2000, 1997, Additional history existsHPV VaccinesCompleted 02/12/2009, 10/30/2008, 08/13/2008Meningococcal VaccineAged Out02/12/2009No longer eligible based on patient's age to complete this topicMeningococcal B VaccineAged OutNo longer eligible based on patient's age to complete this topic Pneumococcal Vaccine: Pediatrics (0 to 5 Years) and At-Risk Patients (6 to 64 Years)Aged OutNo longer eligible based on patient's age to complete this topic Rotavirus VaccinesAged OutNo longer eligible based on patient's age to complete this topic Insurance Care Teams Team MemberRelationshipSpecialtyStart DateEnd Date None, Provided, PCP - General04/24/23
--- OUTSIDE RECORDS SUMMARY | 2025-06-30 09:56 | XMS_ITS | Clinical Summary ---
Author Organization [facility] Address [address] [place] [address] Care Team Providers Care Director Data Architecture Name Role Phone Unavailable Primary Care Provider Unavailabl e Medications No known medications Active Problems No known active problems Social History Tobacco UseTypesPacks/DayYears UsedDateSmoking Tobacco: Never AssessedArea Deprivation IndexAnswerDate RecordedNational Score (1-100), lower number is lower [id number] Score (1-10), lower number is lower riskNot on file 3Data from: https://www.neighborhoodatlas.[facility].edu/. Last address used for [address] [facility]3CommentsUnknownSex and Gender InformationValueDate RecordedSex Assigned at BirthNot on fileLegal UzuIgguui23/15/2023 12:22 PM ESTGender IdentityNot on fileSexual OrientationNot on file Last Filed Vital Signs Vital SignReadingTime TakenCommentsBlood Pressure--Pulse--Temperature-- Respiratory Rate--Oxygen Saturation--Inhaled Oxygen Concentration--Yfxyle71 kg (130 lb)11/14/2022 8:31 AM QYYSvxbdm435 cm (5' 3 )11/14/2022 8:31 AM EDTBody Mass Index23.03011/14/2022 8:31 AM EDT Plan of Treatment Health MaintenanceDue DateLast DoneCommentsAnxiety Kkhuzylvc24/27/2015Depression Aaehevzml72/27/2015HIV Fudllfagt07/27/2015Hepatitis C Iydskreca56/27/2015 Cervical Cancer Eeqrillzp11/27/2018Covid-19 Vaccine (1 - 2024- season) 2025Influenza Vaccine (#1)5109/28/2012, 08/13/2008DTaP,Tdap,Td Vaccine (8 - Td or Tdap)6002/14/2016, 02/12/2009, 04/01/2002, Additional history existsHPV ZjoshurHfhdfrhui38/12/2009, 10/30/2008, 08/13/2008Hepatitis B HmtaddfGuzytfnkz49/13/2016, 1997, 1997, Additional history exists Insurance
--- OUTSIDE RECORDS SUMMARY | 2025-06-30 09:57 | XMS_ITS | Clinical Summary ---
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 Name Role Phone Unavailable Primary Care Provider Unavailabl e Allergies No known active allergies Medications MedicationSigDispense QuantityRefillsLast FilledStart DateEnd DateStatus Fkdhwizl-Ujp-Gi-FA (, w/Iron & FA,) 27-0.8 MG tablet 1 (one) time each day at the same time.01/01/2023ctive famotidine (Pepcid) 20 MG tablet Indications:Gastroesophageal Reflux Disease,HeartburnTake 1 tablet (20 mg) by mouth Daily 30 tablet 5Active Encounters DateTypeDepartmentCare ExhxXtpxyfkpniy40/13/2025 11:30 AM EDTRoutine [facility] [address] [address] [place] [address] Mamie Pascual PA Second trimester ([facility]); 24 weeks gestation of ([facility]); Diabetes mellitus ostexfplt58/13/2025amboo flowsheet [facility]OM[facility]opa [address] [place] [address] Mamie Pascual PA 06/08/20251933Emfpmt82/15/2025 9:30 AM EDTRoutine [facility] Jessica [address] [place] [address] Sanjeev Casey, Second trimester ([facility]); 20 weeks gestation of ([facility])05/18/2025 8:30 AM EDTAncillary [place] [phone] Screening, , for anatomic survey ([facility])04/24/2025[place] [phone] Suzanna Moses MA 04/20/2025 11:20 [place] [address] Mamie Pascual PA Well woman exam with routine gynecological exam; Second trimester ([facility]); 16 weeks gestation of ([facility]); Vaginal discharge; STD exposure; Screening, , for anatomic survey ([facility])5Clinisync Result Encounter NOMS External Department Unsolicited Mamie Pascual PA 04/20/2025External Result Encounter NOMS External Department Unsolicited Mamie Pascual PA 04/20/2025amboo [place] [address] Mamie Pascual PA from Last 3 Months Family History Medical HistoryRelationNameCommentsMental illnessFatherCancerMaternal GrandfatherDiabetesMaternal GrandfatherMental illnessMotherMental illnessSister 1Mental illnessSister 2RelationNameStatusCommentsBrotherAliveFatherAliveMaternal GrandfatherMotherAliveSister 1AliveSister 2Alive Social History Tobacco UseTypesPacks/DayYears UsedDateSmoking Tobacco: NeverSmokeless Tobacco: Never Tobacco Cessation:Counseling Given: No Alcohol UseStandard Drinks/WeekCommentsNever0 (1 standard drink = 0.6 oz pure alcohol)Alcohol: 1 or 2 drinks on typical day/monthly or less.AUDIT-CAnswerDate RecordedQ1: How often do you have a drink containing alcohol?Monthly or less 07/13/2023Q2: How many drinks containing alcohol do you have on a typical day when you are drinking?1 or Q3: How often do you have six or more drinks on one occasion?Never07/13/2023Estimated Date of DeliveryComments Yes09/30/2025ased on last menstrual period of 12/24/2024 (Exact Date)Sex and Gender InformationValueDate RecordedSex Assigned at BirthNot on fileLegal Sex Uuwmwj7511/15/2022 7:27 PM EDTGender EkfggniqJapidz05/15/2023 7:27 PM EDTSexual OrientationNot on file Last Filed Vital Signs Vital SignReadingTime TakenCommentsBlood Cwkuarpt610/801 11:37 AM EDT Pulse--Temperature--Respiratory Rate--Oxygen Saturation--Inhaled Oxygen Concentration--Jbqkfr71.9 kg (156 lb 4 oz)06/15/2025 11:37 AM WEMSbkxnr826 cm (5' 3 )02/02/2023 9:28 AM EDTBody Mass Index27.68002/02/2023 9:28 AM EDT Plan of Treatment DateTypeDepartmentCare Team (Latest Contact Info)Uuoggbkzuwb89/28/2025 11:00 AM EDTRoutine [facility] Jessica OBGYN [address] [place] [phone] Sanjeev Casey DO [address] [place], [place] [phone] Procedures Procedure NamePriorityDate/TimeAssociated DiagnosisCommentsPOCT URINALYSIS KOKVIMNZSeliydt14/13/2025 1:39 PM EDT Second trimester ([facility]) POCT URINALYSIS VTSDVJGBFvwpitg56/15/2025 9:46 AM EDT Second trimester ([facility]) US OB 14+ WEEKS ANATOMY JGDHGvyujxc42/15/2025 9:35 AM EDT Screening, , for anatomic survey ([facility]) RECURRENT VAGINITIS (HTRX)Bvwjkjg0704/20/2025 11:56 AM EDT IGP,APTIMA HPV,AGE HYUQGkzesbt15/18/2025 11:25 AM EDT PAP WVSBZYhfxkey09/18/2025 12:00 AM EDTfrom Last 3 Months Results * POCT urinalysis dipstick manually resulted (06/15/2025 1:39 PM EDT) Only the most recent of2 resultswithin the time period is included. ComponentValueRef RangeTest MethodAnalysis TimePerformed AtPathologist Signature Color, UAYellowClarity, UAClearGlucose, UANegativeNegative - 2000(110) ++++ mg/dLBilirubin, UANegativeNegative - 4(70) +++ mg/dLKetones, UANegativeNegative - 160(16) ++++ mg/dLSpec Grav, UA1.0151 - 1.03Blood, UANegativeNegative - 50 Enrique/mcLpH, UA6.05 - 9Protein, UANegativeNegative - 2000(20) ++++ mg/dL Urobilinogen, UA0.20.2 - 12 mg/dLLeukocytes, UANegativeNegative - 500+++ Lizzeth/mcL Nitrite, UANegativeNegative - PositiveSpecimen (Source)Anatomical Location / LateralityCollection Method / VolumeCollection TimeReceived JcpsVuqkt01/13/2025 1:39 PM EDT Narrative Authorizing ProviderResult TypeResult Status[facility] TEST ENTER/EDIT ORDERABLESFinal Result * US OB 14+ weeks anatomy scan (05/18/2025 9:35 AM EDT)Anatomical Region LateralityModalityBodyUltrasoundSpecimen (Source)Anatomical Location / LateralityCollection Method / VolumeCollection TimeReceived Time05/19/2025 12:14 PM EDT Impressions 05/19/2025 12:20 PM EDT Single, live intrauterine , current sonographic age of 20 weeks and 4 days, with an estimated date of delivery of October 01, 2025 (prior HOLDEN October 01, 2025). * ??Estimated Weight (g) by Percentile is based upon an accurate estimated age based onlast menstrual period. ?? TRANSCRIBED BY: ? ELECTRONICALLY SIGNED BY: Alejandro Guadalupe MD Narrative 05/19/2025 12:20 PM EDT FINDINGS: Comparison made with prior examination February 27, 2025. A single, live intrauterine is present with normal cardiac rate of 144 beats per minute. Normal activity and amniotic fluid volume. Morphology is grossly normal. The cervix is long and closed, 4.3 cm. ??The placenta is anterior, inferior margin 5.5 cm from the closed internal cervical os. ??The current sonographic age is 20 weeks and 4 days, based on the following measurements: ?BPD ? 4.8 cm (20 weeks, 4 days) ?Head Circumference ?17.7 cm (20 weeks, 1 day) ?Abdominal Circumference ?15.6 cm (20 weeks, 5 days) ?Femur Length ?3.4 cm (20 weeks, 6 days) ?Placenta ? Anterior Grade I ? Weight (g) by Percentile ??44.1 % * These measurements result in an estimated date of delivery of October 01, 2025. ?The current estimated weight is 371 grams (0 pounds, 13 ??ounces). ?? Procedure Note Alejandro Guadalupe MD - 05/19/2025 FINDINGS: Comparison made with prior examination February 27, 2025. A single, live intrauterine is present with normal cardiacrate of 144 beats per minute. Normal activity and amniotic fluidvolume. Morphology is grossly normal. The cervix is long and closed, 4.3cm. The placenta is anterior, inferior margin 5.5 cm from the closedinternal cervical os. The current sonographic age is 20 weeks and 4 days,based on the following measurements: BPD 4.8 cm (20 weeks, 4 days) Head Circumference 17.7 cm (20 weeks, 1 day) Abdominal Circumference 15.6 cm (20 weeks, 5 days) Femur Length 3.4 cm (20 weeks, 6 days) Placenta Anterior Grade I Weight (g) by Percentile 44.1 % * These measurements result in an estimated date of delivery of September. The current estimated weight is 371 grams (0 pounds, 13ounces). IMPRESSION: Single, live intrauterine , current sonographic age of 20 weeksand 4 days, with an estimated date of delivery of October 01, 2025 (priorEDD October 01, 2025). * Estimated Weight (g) by Percentile is based upon an accurateestimated age based on last menstrual period. TRANSCRIBED BY: ELECTRONICALLY SIGNED BY: Alejandro Guadalupe MD Authorizing ProviderResult TypeResult StatusAmy Ankur SOTELO OB US PROCEDURES Final Result * RECURRENT VAGINITIS (HTRX) (04/20/2025 11:56 AM EDT)ComponentValueRef Range Test MethodAnalysis TimePerformed AtPathologist SignatureATOPOBIUM VAGINAE0 19.961 - 24.689 ppm04/21/2025 6:38 AM EDTHealthTrackRx at LabPortATOPOBIUM VAGINAENot Eeumgfet35.961 - 24.689 ppm04/21/2025 6:38 AM EDTHealthTrackRx at LabPortBVAB 2,3 (BACTERIAL VAGINOSIS ASSOCIATED BACTERIA 2, 3); MOBILUNCUS SPP 019.961 - 24.689 ppm04/21/2025 6:38 AM EDTHealthTrackRx at LabPortBVAB 2,3 (BACTERIAL VAGINOSIS ASSOCIATED BACTERIA 2, 3); MOBILUNCUS SPPNot Detected 19.961 - 24.689 ppm04/21/2025 6:38 AM EDTHealthTrackRx at LabPortCANDIDA ALBICANS, PARAPSILOSIS, IDYPIOIHEI137.000 - 30.347 ppm04/21/2025 6:38 AM EDT [facility] at LabPortCANDIDA ALBICANS, PARAPSILOSIS, TROPICALISNot Detected 23.000 - 30.347 ppm04/21/2025 6:38 AM EDTHealthTrackRx at LabPortCANDIDA YJNAQLZB229.000 - 31.618 ppm04/21/2025 6:38 AM EDTHealthTrackRx at [facility] INDERJIT GLABRATANot Nssotmxy00.000 - 31.618 ppm04/21/2025 6:38 AM EDT [facility] Health[facility]ANDIDA DDETWG304.000 - 30.873 ppm04/21/2025 6:38 AM EDTHealthTrackRx at [facility]Care HealthCANDIDA KRUSEINot Thlwhvhx06.000 - 30.873 ppm 04/21/2025 6:38 AM EDTHealthTrackRx at [facility] CenterPortCHLAMYDIA BCUNYGHFNGU566.000 - 31.586 ppm04/21/2025 6:38 AM EDTHealthTrackRx at [facility] HealthCHLAMYDIA TRACHOMATIS Not Lhtyzdeo43.000 - 31.586 ppm04/21/2025 6:38 AM EDTHealthTrackRx at [facility] GARDNERELLA PZICJWORZ296.961 - 24.689 ppm04/21/2025 6:38 AM EDTHealthTrackRx at [facility]Care HealthGARDNERELLA VAGINALISNot Akuxmyej52.961 - 24.689 ppm04/21/2025 6:38 AM EDTHealthTrackRx at [facility]Care HealthMEGASPHAERA (TYPES 1, 2)019.961 - 24.689 ppm 04/21/2025 6:38 AM EDTHealthTrackRx at [facility]Care HealthMEGASPHAERA (TYPES 1, 2)Not Oxwyssun37.961 - 24.689 ppm04/21/2025 6:38 AM EDTHealthTrackRx at [facility] NEISSERIA RBHYHGIJWQO103.000 - 32.587 ppm04/21/2025 6:38 AM EDTHealthTrackRx at [facility]Care HealthNEISSERIA GONORRHOEAENot Mkmhvyeb05.000 - 32.587 ppm04/21/2025 6:38 AM EDTHealthTrackRx at LabPortTRICHOMONAS JYDJWAGBD017.000 - 31.995 ppm 04/21/2025 6:38 AM EDTHealthTrackRx at LabPortTRICHOMONAS VAGINALISNot Ovnbkgdy65.000 - 31.995 ppm04/21/2025 6:38 AM EDTHealthTrackRx at [facility] MYCOPLASMA NUFRCANCKX432.961 - 24.689 ppm04/21/2025 6:38 AM EDTHealthTrackRx at MultiCare HealthMYCOPLASMA GENITALIUMNot Jdtfpvoi92.961 - 24.689 ppm04/21/2025 6:38 AM EDTHealthTrackRx at MultiCare HealthSpecimen (Source)Anatomical Location / LateralityCollection Method / VolumeCollection TimeReceived TimeTissue 04/20/2025 11:56 AM EDT04/21/2025 1:37 AM EDT Narrative Authorizing ProviderResult TypeResult StatusAmy Beaverton PALAB BLOOD ORDERABLES Final ResultPerforming OrganizationAddressCity/State/ZIP CodePhone Number [facility] [address] [address] * IGP,APTIMA HPV,AGE GDLN (04/20/2025 11:25 AM EDT)ComponentValueRef RangeTest MethodAnalysis TimePerformed AtPathologist SignatureAGE GDLN ACOG TESTINGNote. TBHComment: ?? TESTS ? RESULT ??FLAG ??UNITS ?REF RANGE ??LAB ?? Clinician Provided Cytology Information ?? Source.............End[facility] ?? Other.............. ?? No. of containers..01 ThinPrep Vial Age Algo ACOG Hilda... ??21-29 ? 01 ?FLAG LEGEND: ?L-Low Normal,H-High Normal,LL-Alert Low,HH-Alert High <-Panic Low,>-Panic High,A-Abnormal,AA-Critical Abnormal Performed at: 01 =G ?[facility] ?? [address], [place] ??[phone] ?? Maricarmen Grubbs MD, IGP, RFX APTIMA HPV ASCUNote.TBHComment: ?? TESTS ? RESULT ??FLAG ??UNITS ?REF RANGE ??LAB DIAGNOSIS: ?02 ?? NEGATIVE FOR INTRAEPITHELIAL LESION OR MALIGNANCY. Specimen adequacy: ?02 ?? Satisfactory for evaluation. No endocervical component is identified. Performed by: ? 02 ?? Aarti Gavin, Asset Analyst ([facility]) . ? 02 Note: ? Note ?02 ?? The Pap smear is a screening test designed to aid in the ?? detection of premalignant and malignant conditions of the ?? uterine cervix. ??It is not a diagnostic procedure and ?? should not be used as the sole means of detecting cervical ?? cancer. ??Both false-positive and false-negative reports do ?? occur. Test Methodology: ? Note ?02 ?? This liquid based ThinPrep(R) pap test was screened with ?? the use of an image guided system. . ? 02 ?? The HPV DNA reflex criteria were not met with this specimen ?? result therefore, no HPV testing was performed. ?FLAG LEGEND: ?L-Low Normal,H-High Normal,LL-Alert Low,HH-Alert High <-Panic Low,>-Panic High,A-Abnormal,AA-Critical Abnormal Performed at: 02 WB ?[facility] ?? [address] [place] ??[phone] ?? Maricarmen Grubbs MD, Performed at: ??=G - [facility] [address], [place] ??[id number] Bank Guard: Maricarmen Grubbs MD, Phone: ??[phone] Performed at: ??WB - [facility] [address] ??[id number] Bank Guard: Maricarmne Grubbs MD, Phone: ??[phone] Specimen (Source)Anatomical Location / LateralityCollection Method / Volume Collection TimeReceived Time04/20/2025 11:25 AM EDT04/20/2025 3:24 PM EDT Narrative [facility] - 04/22/2025 11:08 AM EDT SPATULA-ALONE ENDOCERVIX Authorizing ProviderResult TypeResult StatusAmy Beaverton PALAB BLOOD ORDERABLES Final ResultPerforming OrganizationAddressCity/State/ZIP CodePhone Number [facility] * Pap Smear (04/20/2025 12:00 AM EDT)Specimen (Source)Anatomical Location / LateralityCollection Method / VolumeCollection TimeReceived TimeSwabCervical swab / Unknown Narrative Authorizing ProviderResult TypeResult StatusAmy Beaverton PALAB CYTOLOGY ORDERABLES Final ResultPerforming OrganizationAddressCity/State/ZIP CodePhone Number EXTERNAL LAB from Last 3 Months Insurance * Guarantor: Priyanka ShuklaAccount TypeRelation to PatientDate of BirthPhone Billing AddressPersonal/YjpwziXelz1997 [address] [place] [address]
[2025-06-30 11:54] LABS: Hematocrit 35.5 % (36.0-48.0); Hemoglobin 12.0 g/dL (12.0-16.0); Immature Granulocytes Abs Auto 0.06 10^3/uL (0.00-0.03); Immature Granulocytes Pct Auto 0.7 % (0.0-0.5); Lymphocytes Absolute Auto 1.3 10^3/uL (1.2-3.8); Mean Corpuscular HGB Conc 33.8 g/dL (29.9-35.2); Mean Corpuscular Hemoglobin 31.4 pg (26.7-34.0); Mean Corpuscular Volume 92.9 fL (81.0-99.0); Platelet Count 188 10^3/uL (150-450); Red Blood Count 3.82 10^6/uL (4.20-5.40); White Blood Count 8.4 10^3/uL (4.0-11.0)
[2025-06-30 13:39] LABS: Glucose 1 Hour 101 mg/dL (<130)
== END 2025-06-30 09:52 | disposition home or self-care (01) ==
LOC: LAB 09:53
PROVIDERS: Visit Provider Physician Assistant
DX: Z13.1 Encounter for screening for diabetes mellitus (principal)
CPT/HCPCS: 36415; 82950; 85025

== ENCOUNTER 2025-08-31 20:14 | Outpatient (REF) | payer SELFPAY ==
--- OUTSIDE RECORDS SUMMARY | 2025-08-31 16:00 | XMS_ITS | Encounter Summary ---
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 Name Role Phone Unavailable Primary Care Provider Unavailabl e Reason for Visit * ReasonCommentsRoutine Visit Encounter Details DateTypeDepartmentCare Team (Latest Contact Info)Patqbgkyhhq16/29/2025 4:00 PM ESTRoutine [facility] Jessica OBGYN [address] [place] [address] Blanquita Mathews, DEEPTHI [address] [place] [address] 35 weeks gestation of ([facility]); Third trimester ([facility]); Gastroesophageal reflux disease without esophagitis Social History Tobacco UseTypesPacks/DayYears UsedDateSmoking Tobacco: NeverSmokeless Tobacco: NeverAlcohol UseStandard Drinks/WeekCommentsNever0 (1 standard drink = 0.6 oz pure alcohol)Alcohol: 1 or 2 drinks on typical day/monthly or less.AUDIT-CAnswer Date RecordedQ1: How often do you have a drink containing alcohol?Monthly or less07/13/2023Q2: How many drinks containing alcohol do you have on a typical day when you are drinking?1 or Q3: How often do you have six or more drinks on one occasion?Never07/13/2023Estimated Date of DeliveryComments Yes09/30/2025ased on last menstrual period of 12/24/2024 (Exact Date)Sex and Gender InformationValueDate RecordedSex Assigned at BirthNot on fileLegal Sex Lgekdz7711/15/2022 7:27 PM EDTGender NeqyppjtGbknuf82/15/2023 7:27 PM EDTSexual OrientationNot on filedocumented as of this encounter Last Filed Vital Signs Vital SignReadingTime TakenCommentsBlood Ngjlpknw725/7008/31/2025 4:34 PM EST Pulse--Temperature--Respiratory Rate--Oxygen Saturation--Inhaled Oxygen Concentration--Llhjwr26.3 kg (174 lb 12.8 oz)08/31/2025 4:34 PM ESTHeight--Body Mass Index30.9602/02/2023 9:28 AM EDTdocumented in this encounter Plan of Treatment DateTypeDepartmentCare Team (Latest Contact Info)Aihgaprlnxg49/07/2026 11:00 AM ESTRoutine [facility] Jessica OBG[facility] [address] [place] [address] Sanjeev Casey DO [address] [place] [address] NameTypePriorityAssociated DiagnosesOrder ScheduleCULTURE, GROUP B STREP WITH SUSCEPTIBLITYLabRoutine Third trimester ([facility]) Expected: 08/31/2025, Expires: 08/31/2026documented as of this encounter Procedures Procedure NamePriorityDate/TimeAssociated DiagnosisCommentsPOCT URINALYSIS BQFAPMXFCiismjh04/29/2025 4:43 PM EST 35 weeks gestation of ([facility]) Third trimester ([facility]) documented in this encounter Results * (ABNORMAL) POCT urinalysis dipstick manually resulted (08/31/2025 4:43 PM EST) ComponentValueRef RangeTest MethodAnalysis TimePerformed AtPathologist SignatureColor, UAYellowClarity, UAClearGlucose, UANegativeNegative - 2000(110) ++++ mg/dLBilirubin, UANegativeNegative - 4(70) +++ mg/dLKetones, UA NegativeNegative - 160(16) ++++ mg/dLSpec Grav, UA1.0301 - 1.03Blood, UA NegativeNegative - 50 Enrique/mcLpH, UA6.05 - 9Protein, UATraceNegative - 2000(20) ++++ mg/dLUrobilinogen, UA0.20.2 - 12 mg/dLLeukocytes, UANegativeNegative - 500+++ Lizzeth/mcLNitrite, UANegativeNegative - PositiveSpecimen (Source) Anatomical Location / LateralityCollection Method / VolumeCollection Time Received RwxdFmirz20/29/2025 4:43 PM EST Narrative Authorizing ProviderResult TypeResult StatusBlanquita Mathews NPPOINT OF CARE TEST ENTER/EDIT ORDERABLESFinal Result documented in this encounter Visit Diagnoses Diagnosis 35 weeks gestation of ([facility]) Third trimester ([facility]) state, incidental Gastroesophageal reflux disease without esophagitis Esophageal reflux documented in this encounter
--- OUTSIDE RECORDS SUMMARY | 2025-08-31 20:20 | XMS_ITS | CCD ---
Demographics Address [address] [place] [address] Home Phone Mobile Phone Preferred Language en Marital Status Unknown Caodaism Affiliation Unknown Race White Ethnic Group Not or Lati no Author Organization [facility] Care Team Providers Care Dry Wall Applicator Name Role Phone Kyle Pepe Attending Unavailable Kyle Pepe Admitting Unavailable Shannon Glez Primary Care Unavailable MD Shannon Glez Primary Care Provider [phone] MD Kyle Pepe Admit Provider [phone] MD Kyle Pepe Attending Provider FIONA [...] Lilly Attending Unavailable Unavailable Primary Care Provider Unavailchino e Unavailable Primary Care Provider UnavailSANJEEV Fleming Attending Unavailable MAMIE ADLER Attending Unavailable MAMIE ADLER Referring Unavailable SANJEEV CASEY Attending Unavailable MAMIE ADLER Attending Unavailable SANJEEV CASEY Attending Unavailable MAMIE ADLER Attending Unavailable Medications Current Medications MedicationDrug Class(es)DatesSig (Normalized)Sig (Original)cephalexin 500 mg oral capsule (1 source)Cephalosporin AntibacterialStart: 10-11-2023 End: 47-56-3958ghyf 1 capsule by mouth in the morningcephalexin (Keflex) 500 MG capsule Indications: S/P Take 1 capsule (500 mg) by mouth in the morning and 1 capsule (500 mg) before bedtime. Do all this for 5 days. 10 capsule 0 10/11/2023 10/16/2023 ActiveDULoxetine 30 mg delayed release oral capsule (1 source)Serotonin and Norepinephrine Reuptake InhibitorStart: 68-04-9527zjze 30 mg by mouth once daily at bedtimeDuloxetine Active 30 MG PO Daily at bedtime July 03, 2022 12:00amfamotidine 20 mg oral tablet (20 sources)Histamine-2 Receptor AntagonistStart: 02-27-2025 End: 13-27-9203gmiu 1 tablet by mouth once dailyfamotidine (Pepcid) 20 MG tablet Indications: Gastroesophageal Reflux Disease , Heartburn Take 1 tablet (20 mg) by mouth Daily 30 tablet 3 02/27/2025 Activefluconazole 100 mg oral tablet (1 source)Azole AntifungalStart: 10-08-2023 End: 90-10-5783gbzy 1 tablet by mouth in the morningfluconazole (Diflucan) 100 MG tablet Indications: Thrush Take 1 tablet (100 mg) by mouth in the morning for 10 days. 10 tablet 0 10/08/2023 10/18/2023 Active1.5 ml fremanezumab-vfrm 150 mg/ml prefilled syringe (1 source)Start: 36-60-9324Bglqufuwlgsh-Vfrm (Ajovy Autoinjector) 225 mg/1.5 mL Auto-Injector Active 225 MG SUBCUT every week June 30, 2022 12:00amPrenatal Bajwaylj-Jii-Iz-FA (, w/Iron & FA,) 27-0.8 MG tablet (20 sources)Start: 47-10-3864Skzofcya Cerlzgtc-Ual-Ls-FA (, w/Iron & FA,) 27-0.8 MG tablet 1 (one) time each day at the same time. 01/01/2023 Active Start: 91-11-2073Xpeadxmd Bzlzbtwg-Oug-Vo-FA (, w/Iron & FA,) 27-0.8 MG tablet 1 (one) time each day at the same time. 0 01/01/2023 ActivetraZODone hydrochloride 50 mg oral tablet (1 source)Serotonin Reuptake InhibitorStart: 12-36-4890xbsq 50 mg by mouth once daily at bedtimeTrazodone Active 50 MG PO Daily at bedtime July 03, 2022 12:00am Problems Active Problems Problem ClassificationProblemDateDocumented DateEpisodic/ChronicAnxiety disorders (3 sources)Anxiety disorder, unspecified; Translations: [Anxiety]Onset: 024419-88-4635IufjrqwA Codes: Natural/environment (1 source)Exposure to other specified factors, initial encounter; Translations: [EXPOSURE OTHER SPEC FACTORS INITIAL]Onset: 98-26-8610QipibqmgOqbjnvisopyal and screening for infectious disease (3 sources)Encounter for screening for human papillomavirus (HPV); Translations: [Exposure to sexually transmissible disorder]Onset: 388313-80-8481Xubxsmzh Joint disorders and dislocations; trauma-related (2 sources)Unspecified internal derangement of left knee; Translations: [Derangement of left knee]Onset: 692395-61-6271KstpmauKonipvyur disorders (1 source)Missed period; Translations: [Irregular menstruation, unspecified] 48-47-4912FvnxqnqRdrx disorders (1 source)Bipolar disorder, unspecified; Translations: [Bipolar disorder, unspecified]Onset: 25-93-4950EtbgauvGxpmw complications of (1 source)Gastroesophageal reflux disease in ; Translations: [Diseases of the digestive system complicating , unspecified trimester]02-27-2025 EpisodicOther complications of (2 sources) size does not accord with dates; Translations: [Uterine size- date discrepancy, second trimester]09-21-6229AzhcvqkoCacjd female genital disorders (2 sources)Vaginal discharge; Translations: [Other specified noninflammatory disorders of vagina]39-26-0697WolxavsxNugfw non-traumatic joint disorders (3 sources)Pain in left knee; Translations: [PAIN IN LEFT KNEE]Onset: 09-06-2022 EpisodicOther and delivery including normal (14 sources); Translations: [Encounter for supervision of normal , unspecified, unspecified trimester]25-84-1866FbdamxtuCvusl screening for suspected conditions (not mental disorders or infectious disease) (8 sources)Encounter for screening for malignant neoplasm of cervix; Translations: [Patient encounter status]Onset: 64-79-3121JhtcncmoFosanncv codes; unclassified (2 sources)Gestation period, 12 weeks; Translations: [12 weeks gestation of ]59-42-8860RfbacbpvAkosjdzw codes; unclassified (2 sources)Gestation period, 16 weeks; Translations: [16 weeks gestation of ]64-48-7142PambdpbcUognjjtp codes; unclassified (2 sources)Gestation period, 20 weeks; Translations: [20 weeks gestation of ]00-07-0305UdibmurxVccmbkzr codes; unclassified (2 sources)Gestation period, 24 weeks; Translations: [24 weeks gestation of ]56-64-2336VzztmcfuJtfdeqni codes; unclassified (2 sources)Gestation period, 26 weeks; Translations: [26 weeks gestation of ]52-41-1994WeuisrteBlxwbymk codes; unclassified (2 sources)Gestation period, 28 weeks; Translations: [28 weeks gestation of ]66-19-0673IsalenxmSvwharv and strains (2 sources)Sprain of unspecified site of left knee, initial encounter; Translations: [Unspecified sprain of right wrist, initial encounter]Onset: 42-46-3890EmutktacScgwodm and intentional self-inflicted injury (6 sources)Poisoning by unspecified drugs, medicaments and biological substances, intentional self-harm, initial encounter; Translations: [Suicidal ideations]Onset: 932408-44-0663Mdxudqrw Past or Other Problems Problem ClassificationProblemDateDocumented DateEpisodic/ChronicE Codes: Fall (1 source)Fall on same level from slipping, tripping and stumbling with subsequent striking against unspecified object, initial encounter; Translations: [FALL SAME LVL SLIP STRK UNS OBJ INT]Onset: 34-07-7344NggjqsjzHfpam non- traumatic joint disorders (4 sources)Pain in left wrist; Translations: [PAIN IN LEFT WRIST]Onset: 67-49-3320Xxryaknf Results Test NameValueInterpretationReference RangeFacilityALL CBC WITH AUTO DIFFon 57-00-9208TWSGYQSUY ABSOLUTE AUTO0.0NOMS HealthcareBasophils/100 WBC (Bld)0.4 % 0.2 - 2.0 %NOMS HealthcareEosinophils/100 WBC (Bld)3.3 %0.9 - 7.0 %[facility] HospitalErythrocyte distribution width (RBC) [Ratio]13.3 %11.0 - 15.0 %NOM HealthcareHematocrit (Bld) [Volume fraction]35.5 %Low36.0 - 48.0 %[facility] HealthcareHemoglobin (Bld) [Mass/Vol]12.0 g/dL12.0 - 16.0 g/dLUniversity of Missouri Children's Hospital IMMATURE GRANULOCYTES ABS AUTO0.06HighNONortheast Regional Medical CenterImmature granulocytes/100 WBC (Bld)0.7 %High0.0 - 0.5 %[facility] HealthcareInterpretation and review of laboratory resultsAbnormalNOAK HealthcareLYMPHOCYTES ABSOLUTE AUTO1.3NOMS [facility] Medical CenterLymphocytes/100 WBC (Bld)15.6 %Low20.5 - 60.0 %[facility] CenterH (RBC) [Entitic mass]31.4 pg26.7 - 34.0 pgNOSaint Joseph Hospital of KirkwoodHC (RBC) [Mass/Vol] 33.8 g/dL29.9 - 35.2 g/dLMineral Area Regional Medical CenterV (RBC) [Entitic vol]92.9 fL81.0 - 99.0 fLNONortheast Regional Medical CenterMONOCYTES ABSOLUTE AUTO0.6NOMS HealthcareMonocytes/100 WBC (Bld)6.9 %1.7 - 12.0 %NOM HealthcareNEUTROPHILS ABSOLUTE AUTO6.1N[facility] Healthcare Neutrophils/100 WBC (Bld)73.1 %43.0 - 75.0 %NOMS HealthcarePlatelet mean volume (Bld) [Entitic vol]10.0 fL9.5 - 13.5 fLNOMS HealthcareTBH EO #0.3NOMS Healthcare TBH LVZ252NSBR HealthcareTBH RBC3.82LowNOMS HealthcareTBH WBC8.4NOMS Healthcare CLINISYNCNOMS HealthcareUrinalysis macro (dipstick) panel (U)on 06-30-2025 Bilirubin, UANegativeNegative - 4(70) +++ mg/dLNOMS HealthcareBlood, UANegative Negative - 50 Enrique/mcLNOMS HealthcareClarity, UAClearNOMS HealthcareColor, UA YellowNOMS HealthcareGlucose, UANegativeNegative - 1999(110) ++++ mg/dLNOMS HealthcareInterpretation and review of laboratory resultsNormalNOAK Healthcare Ketones, UANegativeNegative - 160(16) ++++ mg/dLNOMS HealthcareLeukocytes, UA NegativeNegative - 500+++ Lizzeth/mcLNOMS HealthcareNitrite, UANegativeNegative - PositiveNOMS HealthcarepH, UA6.55 - 9NOMS HealthcareProtein, UANegativeNegative - 1999(20) ++++ mg/dLNOMS HealthcareSpec Grav, UA1.0301 - 1.03NOAK Healthcare Urobilinogen, UA1.00.2 - 12 mg/dLNOMS HealthcareNOMS HealthcareUrinalysis macro (dipstick) panel (U)on 10-19-4653Pgkotbxtk, UANegativeNegative - 4(70) +++ mg/dL NOMS HealthcareBlood, UANegativeNegative - 50 Enrique/mcLNOMS HealthcareClarity, UA ClearNOMS HealthcareColor, UAYellowNOMS HealthcareGlucose, UANegativeNegative - 2000(110) ++++ mg/dLNOMS HealthcareInterpretation and review of laboratory resultsNormalNOMS HealthcareKetones, UANegativeNegative - 160(16) ++++ mg/dLNOMS HealthcareLeukocytes, UANegativeNegative - 500+++ Lizzeth/mcLNOMS HealthcareNitrite, UANegativeNegative - PositiveNOMS HealthcarepH, UA6.05 - 9N[facility] Healthcare Protein, UANegativeNegative - 1999(20) ++++ mg/dLNOMS HealthcareSpec Grav, UA 1.0151 - 1.03NOMS HealthcareUrobilinogen, UA0.20.2 - 12 mg/dLNONortheast Regional Medical CenterNOAK HealthcareUS OB 14+ WEEKS ANATOMY SCANon 20-00-9520NO OB 14+ WEEKS ANATOMY SCAN FINDINGS: Comparison made with prior examination February 27, 2025. A single, live intrauterine is present with normal cardiac rate of 144 beats per minute. Normal activity and amniotic fluid volume. Morphology is grossly normal. The cervix is long and closed, 4.3 cm. The placenta is anterior, inferior margin 5.5 cm from the closed internal cervical os. The current sonographic age is 20 weeks and 4 days, based on the following measurements: BPD 4.8 cm (20 weeks, 4 days) Head Circumference 17.7 cm (20 weeks, 1 day) Abdominal Circumference 15.6 cm (20 weeks, 5 days) Femur Length 3.4 cm (20 weeks, 6 days) Placenta Anterior Grade I Weight (g) by Percentile 44.1 % * These measurements result in an estimated date of delivery of October 01, 2025. The current estimated weight is 371 grams (0 pounds, 13 ounces). IMPRESSION: Single, live intrauterine , current sonographic age of 20 weeks and 4 days, with an estimated date of delivery of October 01, 2025 (prior HOLDEN October 01, 2025). * Estimated Weight (g) by Percentile is based upon an accurate estimated age based on last menstrual period. TRANSCRIBED BY: ELECTRONICALLY SIGNED BY: Tracy [place] AvailableComment on above:Order Comment: US OB ANATOMY SINGLE W US OB CERVICAL LENGTH Estimated Date of Delivery: 09/30/25 Gestational Age as of 04/20/2025: 47o9aKmvuqltats macro (dipstick) panel (U)on 52-26-5745Bbtkxdyvh, UANegativeNegative - 4(70) +++ mg/dLNOMS HealthcareBlood, UANegativeNegative - 50 Enrique/mcLNOMS HealthcareClarity, UAClearNOMS Healthcare Color, UAYellowNOMS HealthcareGlucose, UANegativeNegative - 1999(110) ++++ mg/dL NOMS HealthcareInterpretation and review of laboratory resultsNormalNOMS HealthcareKetones, UANegativeNegative - 160(16) ++++ mg/dLUniversity of [facility] Leukocytes, UANegativeNegative - 500+++ Lizzeth/mcLNOAK HealthcareNitrite, UA NegativeNegative - PositiveNOAK HealthcarepH, UA65 - 9NOAK HealthcareProtein, UA NegativeNegative - 2000(20) ++++ mg/dLSALT LAKE REGIONAL MEDICAL [facility]ENTER HealthcareSpec Grav, UA1.021 - 1.03 [facility] HospitalUrobilinogen, UA0.20.2 - 12 mg/dLNovant Health Pender Medical Center IGP,APTIMA HPV,AGE GDLNon 13-10-5913WZX GDLN ACOG TESTINGNote.[facility] Comment on above:TESTS RESULT FLAG UNITS REF RANGE LAB Clinician Provided Cytology Information Source.............Endocervix Other.............. No. of containers..01 ThinPrep Vial Age Algo ACOG Hilda... - 01 FLAG LEGEND: L-Low Normal,H-High Normal,LL-Alert Low,HH-Alert High <-Panic Low,>-Panic High,A-Abnormal,AA-Critical Abnormal Performed at: 01 =G [facility] [address] [address] Maricarmen Grubbs MD, IGP, RFX APTIMA HPV ASCUNote.[facility] HospitalComment on above:TESTS RESULT FLAG UNITS REF RANGE LAB DIAGNOSIS: 02 NEGATIVE FOR INTRAEPITHELIAL LESION OR MALIGNANCY. Specimen adequacy: 02 Satisfactory for evaluation. No endocervical component is identified. Performed by: 02 Aarti Gavin Machine Turner ([facility]) . 02 Note: Note 02 The Pap smear is a screening test designed to aid in the detection of premalignant and malignant conditions of the uterine cervix. It is not a diagnostic procedure and should not be used as the sole means of detecting cervical cancer. Both false-positive and false-negative reports do occur. Test Methodology: Note 02 This liquid based ThinPrep(R) pap test was screened with the use of an image guided system. . 02 The HPV DNA reflex criteria were not met with this specimen result therefore, no HPV testing was performed. FLAG LEGEND: L-Low Normal,H-High Normal,LL-Alert Low,HH-Alert High <-Panic Low,>-Panic High,A-Abnormal,AA-Critical Abnormal Performed at: [address] [address] Maricarmen Grubbs MD, Performed at: =G - [facility] [address] [id number] Fbi Profiler: Maricarmen Grubbs MD, Phone: [phone] Performed at: [facility] [id number] Fbi Profiler: Maricarmen Grubbs MD, Phone: [phone] SPATULA-ALONE ENDOCERVIX CLINISYNCNOMS HealthcareRECURRENT VAGINITIS (HTRX)on 40-90-6394XVTGXTIOI VAGINAE 0NOMS HealthcareATOPOBIUM VAGINAENot detectedNOMS HealthcareBVAB 2,3 (BACTERIAL VAGINOSIS ASSOCIATED BACTERIA 2, 3); MOBILUNCUS PKN0EOGE HealthcareBVAB 2,3 (BACTERIAL VAGINOSIS ASSOCIATED BACTERIA 2, 3); MOBILUNCUS SPPNot detectedNOMS HealthcareCANDIDA ALBICANS, PARAPSILOSIS, CYZNAXKNLN9PRCX HealthcareCANDIDA ALBICANS, PARAPSILOSIS, TROPICALISNot detectedNOMS HealthcareCANDIDA GLABRATA0 NOMS HealthcareCANDIDA GLABRATANot detectedNOMS HealthcareCANDIDA OYUQSW5MKYM HealthcareCANDIDA KRUSEINot detectedNOMS HealthcareCHLAMYDIA HBVKOLJHGJH5RDCN HealthcareCHLAMYDIA TRACHOMATISNot detectedNOMS HealthcareGARDNERELLA VAGINALIS0 NOMS HealthcareGARDNERELLA VAGINALISNot detectedNOMS HealthcareMEGASPHAERA (TYPES 1, 2)0NOMS HealthcareMEGASPHAERA (TYPES 1, 2)Not detectedNOMS Healthcare MYCOPLASMA LXWBXYLDRX2AFSS HealthcareMYCOPLASMA GENITALIUMNot detectedNOMS HealthcareNEISSERIA IBYVGGTEFZO1OYUA HealthcareNEISSERIA GONORRHOEAENot detected NOMS HealthcareTRICHOMONAS URVSNPCOE8YUOH HealthcareTRICHOMONAS VAGINALISNot detectedNOMS HealthcareNOMS HealthcareUrinalysis macro (dipstick) panel (U)on 98-86-3870Qatkdhmmd, UANegativeNegative - 4(70) +++ mg/dLNOAK HealthcareBlood, UANegativeNegative - 50 Enrique/mcLNOAK HealthcareClarity, UAClearNOMS Healthcare Color, UAYellowNOMS HealthcareGlucose, UANegativeNegative - 2000(110) ++++ mg/dL NOMS HealthcareInterpretation and review of laboratory resultsNormalNOMS HealthcareKetones, UANegativeNegative - 160(16) ++++ mg/dLNOAK Healthcare Leukocytes, UANegativeNegative - 500+++ Lizzeth/mcLNOMS HealthcareNitrite, UA NegativeNegative - PositiveNOMS HealthcarepH, UA65 - 9NOMS HealthcareProtein, UA NegativeNegative - 2000(20) ++++ mg/dLUniversity of Missouri Children's HospitalSpec Grav, UA1.0251 - 1.03 NOMS HealthcareUrobilinogen, UA0.20.2 - 12 mg/dLNovant Health Pender Medical Center36 on 91-48-426287Keh to call back to schedule an apptNormalUniUniversity Hospitals Ahuja Medical CenterTelephoneon [id number] Rosalva Hardin 1995 F Date Provider Department Center 03/16/2025 RONNY AZAR MP ORTHO MPORTHO No family history on file Reason for Visit and Comments: NEW DOL DIAGNOSIS APPROVED [Other]NormalUnMercy HospitalBOX TESTon 45-68-7123HWW TEST SENT OUTUNSaint Thomas - Midtown HospitalPmicqibzghUDC3QZIVSPOIS Healthcare GQB653[facility]'s HospitalCLINISYNCNSaint Luke's North Hospital–Barry RoadHCG ( test) Ql (U) on 08-87-0896Udum Test, UrPositiveNegativeBothwell Regional Health Center Panel Informationon 91-48-4134Mfcgemseumtfxq and review of laboratory resultsAbFormerly [facility] HealthcareUS OB TRANSVAGINALon 02-44-5126VC OB TRANSVAGINALEXAM: US OB TRANSVAGINAL HISTORY: Dating. COMPARISON: None [...] II, MD, PHD at 01-Mar-2025 10:04:28 PM [facility] TeleradiologyNormalNot AvailableComment on above:Order Comment: US OB TRANSVAGINAL No LMP recorded.Urinalysis macro (dipstick) panel (U)on 43-36-4759Rxumkrdav, UA NegativeNegative - 4(70) +++ mg/dLNOMS HealthcareBlood, UANegativeNegative - 50 Enrique/mcLNOMS HealthcareClarity, UAClearNOMS HealthcareColor, UAYellowNOMS HealthcareGlucose, UANegativeNegative - 2000(110) ++++ mg/dLNOMS Healthcare Ketones, UANegativeNegative - 160(16) ++++ mg/dLNOMS HealthcareLeukocytes, UA NegativeNegative - 500+++ Lizzeth/mcLNOMS HealthcareNitrite, UANegativeNegative - PositiveNOMS HealthcarepH, UA8.55 - 9NOMS HealthcareProtein, UATraceNegative - 2000(20) ++++ mg/dLNOMS HealthcareSpec Grav, UA1.021 - 1.03N[facility] Healthcare Urobilinogen, UA0.20.2 - 12 mg/dLNOMS HealthcareUS OB GROWTHon 37-70-9838IhyPol[place], [place] [address] Ultrasound Report Signed Patient: ROSALVA HARDIN MR#: [id number] : 1995 Acct:[id number] Age/Sex: 28 / F ADM Date: 08/17/23 Loc: US Attending Dr: Sanjeev Casey D.O. Ordering Physician: Sanjeev Casey D.O. Date of Service: 08/17/23 Procedure(s): US OB growth Accession Number(s): [id number] cc: FAMILY,HEALTH SER ; Sanjeev Casey D.O. [place] [address] Patient Name: ROSALVA HARDIN MRN: [id number] date: 1995 Sex: F Assigned Patient Location: US Current Patient Location: Accession/Order Number: [id number] Exam Date: 08/17/2023 11:15 Report Date: 08/17/2023 [...] Signed By: 08/17/23 1211 DD/ 1208 TD/TT: Mechanic Sound Technician:OSCARHRadiology, Radiologist, - 08/17/2023 [place] [address] Ultrasound Report Signed Patient: ROSALVA HARDIN MR#: [id number] : 1995 Acct:[id number] Age/Sex: 28 / F ADM Date: 08/17/23 Loc: US Attending Dr: Sanjeev Casey D.O. Ordering Physician: Sanjeev Casey D.O. Date of Service: 08/17/23 Procedure(s): US OB growth Accession Number(s): [id number] cc: FAMILY,HEALTH SER ; Sanjeev Casey D.O. [place] [id number] Patient Name: ROSALVA HARDIN MRN: [id number] date: 1995 Sex: F Assigned Patient Location: US Current Patient Location: US Accession/Order Number: [id number] Exam Date: 08/17/2023 11:15 Report Date: 08/17/2023 [...] Signed By: 08/17/23 1211 DD/ 1208 TD/TT: Mechanic Sound Technician: MARY DyeRadiology Study observation (narrative)MARY DyeUS OB GROWTHOrdered By: Radiologist Radiology on 28-26-3532LVWP [place] Work Phone: [facility] Medicine Office/Clinic Noteon 66-12-0057Ukdtjq Medicine Office/Clinic NoteChief Complaint EST cough congestion HPI Staff 28 [...] created with voice recognition software. Occasional wrong-word or?kdiiv-r-trsx? substitutions may have occurred due to the inherent limitations of voice recognitionsoftware. 28-year-old female who is currently 26 weeks [...] some sinus pressure and bilateral ear pressure. Shewants to make sure that she does not have a sinus infection but also states she does not know what cowj-jzr-bjhmsgy medications she is able to take. She [...] similar symptoms but denies any other recent sickcontacts or recent travel. She does note she did take a home COVID- 19 test a couple days ago that was [...] any pain. May use flonase for symptomatic tx.Contact lightning rod erector to confirm flonase is safe usage in addition to plain robitussin. Follow up with PCPif not improving over next --- days or significantly worsening symptoms. Patient verbalized understanding of tx plan. Ordered: fluticasone nasal, 1 spray(s), Nasal, BID for 7 day(s), 16 gm, Refill(s) 0, each nostril, [facility], 159, cm, 06/06/23 11:45:00 EDT, Height/Length Dosing, 76, kg, 06/06/23 11:45:00 EDT, Weight Dosing Follow-up With When Contact Information Newton DUNCAN, Shannon Murphy [address] [place] [address]- Additional Instructions: Patient Education Upper Respiratory Infection, Adult Problem List/Past Medical History Ongoing Acute medial meniscus tear of left knee Anxiety Chlamydia Episodic mood disorder. Lower back pain Posttraumatic stress disorder Suicide attempt Historical No qualifying data Procedure/Surgical History Dilation and curettage. Medications Flonase 0.05 mg/inh Rock, 1 spray(s), Nasal, BID Allergies No Known Allergies Social History Alcohol - Low Risk, 12/09/2022 Current, 1-2 times per month, Household alcohol concerns: No., 12/09/2022 Substance Abuse - Low Risk, 12/09/2022 (more content not included)...[facility] HospitalComment on above: Result Comment: Electronically Signed By: Maxx WHALEN, Papi Green\.br\Date and Time Signed: 06/06/2313:07 EDTPatient Educationon 21-60-9791Edjaryo Education Infectious Disease Upper Respiratory Infection, Adult An upper respiratory infection (URI) is a common viral infection of the nose, throat, and upper airpassages that lead to the lungs. The most [...] to help relieve symptoms, such as: ? Qjul-oqo-dwrdmag cold medicines. ? Cough suppressants. Coughing is [...] other clear broths. General instructions ? Take vjkn-bdw-rzxxojn and prescription medicines only as told by your health care provider. Theseinclude cold medicines, fever reducers, and cough suppressants. [...] seconds. If soap and water are not available,use hand licensed loan officer assistant. ? Avoid touching your mouth, face, eyes, [...] emergency. Get help (more content not included)... NormalCleveland Clinic Avon HospitalT - Assessmentson 82-55-8855UM - Assessments [id number]:127NormalMansfield HospitalCoding Summary.on 38-48-3969Cpfnqi Summary. CD:[id number]+PGhlYWQ+QX1AAUOlU60elLXnuD7nW2IOCOcDRmpoQZHDTXsZWwSqkwVvD Q4aiAYjEBHj [file] YXBzZTog (more content not included)...NormalFisher Western Maryland Hospital CenterConsent for Treatmenton 93-28-9327Jgszmzz for Treatment [id number]#1.00CD:127NormBlanchard Valley Health System Bluffton HospitalT - Orderson 52-64-9870AI - Orders [id number]#1.00CD:127NoCleveland ClinicT - Otheron 55-81-6748ZL - Other [id number]#1.00CD:127[facility] West HospitalFamurphy army hospital Medicine Office/Clinic Noteon 52-11-7324Qtociz Medicine Office/Clinic NoteChief Complaint EST muffled hearing, ear pain and [...] of ongoing nasal congestion, nasal drainage, sinus pressure.Symptoms started 1-1/2 weeks ago. Had sore throat [...] PRN tylenol/ibuprofen for pain and/or fever encouraged. Mayuse claritin D, flonase for symptomatic tx. Follow up with PCP if not improving over next 5-7 days with ATB or significantly worsening. Patient and/or parent verbalized understanding of treatment plan. Ordered: amoxicillin-clavulanate, = 1 tab(s), Oral, q12hr, X 7 day(s), # 14 tab(s), Refills(s) 0, [facility], 160, cm, 12/09/22 13:50:00 EDT, [...] Recorded measles/mumps/rubella virus vacci (more content not included)...[facility] HospitalComment on above:Result Comment: Electronically Signed By: Katherin PETERSEN CNP\Date and Time Signed: 12/09/22 14:16 EDTPatient Educationon 67-94-7780Odjvtxs EducationInfectious Disease Sinusitis, Adult Sinusitis is inflammation of your sinuses. Sinuses are hollow spaces in the bones around your face.Your sinuses are located: ? Around your eyes. [...] a feeling of pressure around the affected sinuses.Other symptoms include: ? Stuffy nose or congestion. [...] home: Medicines ? Take, use, or apply wopx-zei-yxwaqac and prescription medicines only as told by [...] told by your health care provider. You yajaira this in the bathroom while a hot [...] exposure to germs. If soap and water arenot available, use hand licensed loan officer assistant. ? Do not smoke. Avoid being around [...] severe pain or swell (more content not included)...[facility] HospitalProvider Letteron 16-41-3352Rxwxnvkh Letter December 09, 2022 ROSALVA HARDIN [address] [place] [address] WILFREDGLENDASA Murphy 1995 To Whom It May Concern, Please excuse above patient from work. Date of Illness:12-09-2022 May Return to Work On:next scheduled work day Restrictions: _ Comments: _ Sincerely, [facility] [address] [place] [address], [place] [address] LjpgwbIgwkajClermont County Hospital Medicine Office/Clinic Noteon 25-85-7097Rrfdmk Medicine Office/Clinic NoteChief Complaint EST cough, sore throat, headache, sinus [...] Acute pharyngitis, unspecified) Ordered: Rapid Strep POC 72988 Follow-up With When Contact Information Newton DUNCAN, [address] [place] [address]- Additional Instructions: Patient Education Antibiotic Resistance Upper [...] Given Postpone due to refusal SARS-CoV-2 mRNA (stacian 5y-11y) vac - Not Given Postpone due [...] Canals and TM appear normal bilaterally. TM?s intact,not inflamed, with normal light reflex. Hearing grossly normal to conversational speech Nose: mild nasal mucosa inflammation and edema mild discomfort o (more content not included)...[facility] HospitalComment on above:Result Comment: Electronically Signed By: EFRA Mejias APRN, Aurora X\.hattie\Date and Time Signed: 12/04/22 12:31 EDTPatient Educationon 00-36-8462Ffjoiha Education Infectious Disease Antibiotic Resistance Antibiotics are [...] from animals that were treated with antibiotics. Antibiotic- resistant bacteria can be passed through the food. [...] on the type of infection, but they mayinclude: ? A fever. ? Warmth, redness, and [...] not stop taking the medicine even if youstart to feel better. ? If you have been taking it for more than 10 days, ask your health care provider or pharmacist if you should keep taking it. ? Do not save unused antibiotics to use at a later date. Get rid of unused medicine as told by yourhealth care provider or pharmacist. Preventing infection ? [...] ? Before and after (more content not included)...[facility] HospitalPatient Letter [facility] 66-03-7630Xkgchqi Letter [facility] December 04, 2022 [address]IN [address] [place] [phone] Please excuse ROSALVA HARDIN from work . Date and/or Time of Absence: From: 12/04/22 To: 12/05/22 Restrictions: None Comments: Please excuse due to an acute illness. Provider Signature: Sunshine Mejias APRN, DEPUTY ATTORNEY GENERAL-C Nurse Practitioner [address] [place] [address] NoCleveland Clinic South Pointe HospitalCNOVon [phone] Visit (LOORRM) WILFREDROSALVA Katherine ([id number]) 1995 F Date Time Provider Department 11/13/22 9:30 AM AUDREY MORGAN During your visit today, we recorded the following information about you: Weight Height 59 kg 1.6 m Allergies As of Date: 11/13/2022 (Not on File) Date Reviewed: 11/13/2022 Reviewed by: Monie Salmon MA - Fully Assessed Reason for Visit: New [[id number]] Primary Visit Diagnosis:Acute pain of left knee [M25.562] Other Visit Diagnosis:Internal derangement of left knee [M23.92] Problem List As Of Date: 11/13/2022 (None) Encounter Status:Closed by AUDREY MORGAN II on 11/14/22[facility] CenterXR KNEE 4V AP/PA BOTH+LAT/LETHA LTon 74-61-0545XT KNEE 4V AP/PA BOTH+LAT/LETHA LT* * *Final Report* * * DATE OF [...] dislocation. No joint effusion. IMPRESSION: Normal radiographs. Mechanic Sound Technician: PSCB Transcribe Date/Time: Nov 13 2022 9:55A Dictated by : EBENEZER HORAN MD This examination was interpreted and the report reviewed and electronically signed by: OPAL WARE MD on Nov 13 2022 9:51PM EST [id number] Memorial HospitalXR Knee - left 4 Viewson 73-81-2772WKZKWILLUD: Normal radiographs. Mechanic Sound Technician: [facility] Transcribe Date/Time: Nov 13 2022 9:55A Dictated by : EBENEZER HORAN MD This examination was interpreted and the report reviewed and electronically signed by: OPAL WARE MD on Nov 13 2022 9:51PM EST DIVISION OF RADIOLOGY* * *Final Report* * * DATE OF [...] or dislocation. No joint effusion. DIVISION OF RADIOLOGYProvider, [facility] [place] - 11/13/2022 * * *Final Report* * [...] No joint effusion. IMPRESSION IMPRESSION: Normal radiographs. Mechanic Sound Technician: PSCB Transcribe Date/Time: Nov 13 2022 9:55A Dictated by : EBENEZER HORAN MD This examination was interpreted and the report reviewed and electronically signed by: OPAL WARE MD on Nov 13 2022 9:51PM EST [facility] HospitalRadiology Study observation (narrative)[facility] HospitalXR Knee - left 4 ViewsOrdered By: Ccf Provider on 89-84-4299Eipklyjic ClinicMRI KNEE LT WO CONon 35-82-1660AVK KNEE LT WO CONEXAMINATION: MRI KNEE LT WO CON HISTORY: Sprain of left [...] inferior articular surface Electronically authenticated by: RONNY Jean: 2022-10-11 19:17[facility] DaytonED Noteon 39-65-2068TH Note [id number]#1.00CD:127[facility] HospitalComment on above:Other Comment: WRONG FOLDEROutside Recordson 07-12-2022 Outside [id number]#1.00CD:127[facility] HospitalCoding Summary.on 32-47-2831Upitml Summary. CD:[id number]:[id number]+PGhlYWQ+SG0OQFCnR81olBVwcY6VQ5wEVU7SYYDILKYPAZ4FOK5jb ZT9NIrtG4PigsXb [file] c2U6 (more content not included)...[facility] HospitalCholesterol [Mass/volume] in Serum or PlasmaOrdered By: Kyle Pepe on 06-30-2022 Cholesterol [Mass/Vol]135 mg/lU897-020VrvlxjhlgSt. Anthony'S HospitalComment on above:Chol less than 200 mg/dl low riskChol 201-239 mg/dl borderline riskChol 240 mg/dl and greater high riskCholesterol in LDL Calc [Mass/Vol]Ordered By: Kyle Pepe on 31-91-1088Rowgzcmlkyh in LDL [Mass/Vol]66 mg/dL0-100St. Anthony'S HospitalComment on above:LDL ATP III CLASSIFICATIONLDL less than 100 mg/dL OptimalLDL 100-129 mg/dL Near or above oktcvmtHKX741-996 mg/dL Borderline highLDL 160-189 mg/dL HighLDL greater than 189 mg/dL Very high Cholesterol in VLDL Calc [Mass/Vol]Ordered By: Kyle Pepe on 06-30-2022 Cholesterol in VLDL [Mass/Vol]4 mg/dLCleveland Clinic Mentor Hospital Clinical Summaryon 10-13-2906CI Clinical Summary [address] [address] ED Clinical Summary Person Information Name: ROSALVA HARDIN [facility] Age: 27 Years : 1995 Sex: Female Language: Latvian PCP: Shannon Glez MD Marital Status: Single [...] 06/29/2022 23:43:15 06/29/2022 23:43:15 06/29/2022 23:43:15 ADDRESS: [address] [place] [phone] [facility] DOC NOTES: MEDICAL INFORMATION: Prescriptions Given: Medications to Continue with No Changes Other Medications diphenhydrAMINE (Benadryl 25 mg Cap) 1-2 cap(s) By Mouth 3 times a day as needed as needed for itching. Refills: 0. famotidine (Pepcid 20 mg Tab) 1 Tablets By Mouth 2 times a day. Refills: 0. PATIENT EDUCATION INFORMATION: Instructions: Follow up: DIAGNOSIS: 1:Suicidal ideationNoIjeoma Monroe Medical CenterED Patient Education Noteon 68-57-5760SD Patient Education NoteNormedwinCarolinaeast Medical Centerrobert Monroe Medical CenterED Patient Summaryon 15-51-4767WD Patient Summary [place] [id number] Patient Discharge Instructions Person Information Name: ROSALVA HARDIN Age: 27 Years Arrival Date: 06/29/2022 17:33:15 Discharge Diagnosis: 1:Suicidal ideation Primary Care Physician: Shannon Glez MD Provider Information Primary Provider: Sai Vasquez DO Advanced Geodesist:Arnoldo Wellington PA-C The exam and treatment you received in the Emergency Department were for an urgent problem and are not intended as complete care. It is important that you follow up with a doctor, nurse practitioner,or physician?s payroll assistant for ongoing care. If your symptoms become worse or you do not improve as expected and you are unable to reach your usual health care provider, you should return to the Emergency Department. We are available 24 hours a day. ROSALVA HARDIN has been given the following list of patient education materials, prescriptions andfollow-up instructions: Follow-up Instructions: In the event that this physician does not participate in your insurance network, please consult with your insurance company to find a nearby participating provider. Patient Education Materials: A MESSAGE TO ALL PATIENTS REGARDING OPIOIDS PRESCRIPTION OPIOIDS: WHAT YOU NEED TO KNOW Prescription opioids can be used to help relieve cbiprwqk-ky-foasmo pain and are often prescribed following a [...] and have fewer risks and side effects. Optionsmay include: ? Pain relievers such as acetaminophen, [...] unused prescription opioids: Find your community drug take- back program or yourpharmacy mail-back program, or flush them down the toilet, following guidance from the Food and Drug Administration (www.fda.gov/Drugs/ResourcesForYou). ? Visit www.cdc.gov/drugoverdose to learn about the risks of opioids abuse and overdose. ? If you believe you may be struggling with addiction, tell your health health care law specialist and ask for guidance or call SAMA?S National Helpline at 2-926-823-CISE. v Source: US Department of Health and Human Services/Center for Disease Control & Prevention [facility] Medications Given: Medication Dose Rou (more content not included)...[facility] HospitalEMS Documentationon 19-15-6617QXL Documentation [id number]#1.00CD:127NormalMansfield HospitalLipid Panelon 39-17-5352Ypzbmcoafzh [Mass/Vol]135 mg/lJSol600-317JtgdaksyeSt. Anthony'S HospitalComment on above:Result Comment: Chol less than 200 mg/dl low risk Chol 201-239 mg/dl borderline risk Chol 240 mg/dl and greater high riskPerformed By: #### TSH3 wRFLX, FITQ40DT, LIPID #### [facility] [address] [place] [address] USACholesterol in HDL [Mass/Vol]65 mg/aOPfjbwv98-26CyzakzbpkSt. Anthony'S HospitalComment on above:Result Comment: HDL CHOL ATP-III CLASSIFICATION Cardiovascular Risk HDL > or equal to 60 mg/dL LOW HDL < 40 mg/dL HIGHPerformed By: #### TSH3 wRFLX, GAWH60TK, LIPID #### [facility] [address] [place] [address] USACholesterol.total/Cholesterol in HDL [Mass ratio]2.1 {ratio}Normal<5.0St. Anthony'S HospitalComment on above:Performed By: #### TSH3 wRFLX, [id number], LIPID #### [facility] [address] [place] [address] USALDL Cholesterol,Dxlhwswcav38 mg/dLNormal0-100St. Anthony'S HospitalComment on above:Result Comment: LDL ATP III CLASSIFICATION LDL less than 100 mg/dL Optimal LDL 100-129 mg/dL Near or above optimal LDL 130-159 mg/dL Borderline high LDL 160-189 mg/dL High LDL greater than 189 mg/dL Very highPerformed By: #### TSH3 wRFLX, [id number], LIPID #### [facility] [address] [place] [address] USATriglyceride w/Qjavgq97 mg/uAPim26-223MldxmhmcySt. Anthony'S HospitalComment on above:Result Comment: TRIG ATP III CLASSIFICATION TRIG less than 150 mg/dL Normal TRIG 150-199 mg/dL Borderline high TRIG 200-500 mg/dL High TRIG greater than 500 mg/dL Very high Standard traceable to the Center for Disease Conrtrol and Prevention (CDC) test method.Performed By: #### TSH3 wRFLX, [id number], LIPID #### [facility] [address] [place] [address] USAVLDL CHOLESTEROL4 mg/dLNormalSt. Anthony'S HospitalComment on above:Performed By: #### TSH3 wRFLX, [id number], LIPID #### [facility] [address] [place] [address] USANo Panel InformationOrdered By: Kyle Pepe on 574567-Hglwgbh Vitamin D Total22.3 ng/sN28-521LbtsnkzalSt. Anthony'S HospitalComment on above:VITAMIN D STATUS 25(OH)VITAMIN D RANGE (ng/mL) Deficient <20 Insufficient 20 to <46Dlnlwwmbah08 to 100Reference: Constantino MF,Claudio NC, Martin IBRAHIM, et al. Evaluation,treatment, and prevention of vitamin D deficiency; an Endocrine Society clinical practice guideline. JCEM. 2010; 96 (7):1911-30.Serum or plasma high density lipoprotein (HDL) cholesterol measurementOrdered By: Kyle Pepe on 78-18-0689Vkikcmtgmmj in HDL [Mass/Vol] 65 mg/dS97-89MijkruwldSt. Anthony'S HospitalComment on above:HDL CHOL ATP-III CLASSIFICATION Cardiovascular RiskHDL > or equal to 60 mg/dL LOWHDL < 40 mg/dL HIGHSerum or plasma total cholesterol/high density lipoprotein (HDL) cholesterol mass ratOrdered By: Kyle Pepe on 56-29-0652Uxbclpbswsp.total/Cholesterol in HDL [Mass ratio]2.1 {ratio}<5.0[facility] DL <= 0.005 mIU/L QnOrdered By: Kyle Pepe on 09-12-1698GCD Qn1.66 m[IU]/L 0.45-5.33St. Anthony'S HospitalThyroid Stim Hormone w/Rflxon 44-79-5722Wesmkxi Stim Hormone w/Rflx1.66 u[iU]/mLNormal0.45-5.33St. Anthony'S HospitalComment on above:Performed By: #### TSH3 wRFLX, [id number], LIPID #### [facility] [address] [place] [address] USATransfer Documentson 76-37-2750Ueppkhop Documents [id number]#1.00CD:[address] [place], [place] [address]Triglyceride [Mass/volume] in Serum or PlasmaOrdered By: Kyle Pepe on 14-63-7772Dcmcqmfailbg [Mass/Vol]20 mg/hX94-049HyyewxqjjSt. Anthony'S HospitalComment on above:TRIG ATP III CLASSIFICATIONTRIG less than 150 mg/dL NormalTRIG 150-199 mg/dL Borderline highTRIG 200-500 mg/dL High TRIG greater than 500 mg/dL Very highStandard traceable to the Center for Disease Conrtrol and Prevention (CDC) test method.Valuables Checkliston 36-91-2193Zttiglpmy [id number]#1.00CD:[address] [place], [place] [address]Vitamin D 25 Hydroxy Totalon 03-68-9084Jimcdwt D 25 Hydroxy Total 22.3 ng/pHIwn88-485XoabxuethSt. Anthony'S HospitalComment on above:Result Comment: VITAMIN D STATUS 25(OH)VITAMIN D RANGE (ng/mL) Deficient <20 Insufficient 20 to <30 Sufficient 30 to 100 Reference: Constantino MF,Claudio NC, Martin IBRAHIM, et al. Evaluation,treatment, and prevention of vitamin D deficiency; an Endocrine Society clinical practice guideline. JCEM. 2010; 96(7):1911-30. PERFORMED BY: [place] [address] PATHOLOGIST BUILDING SERVICEMAN JUNIE ARMENDARIZ M.D.Performed By: #### TSH3 wRFLX, [id number], LIPID #### [facility] [address] [place] [address] USAAcetamnphn Lvlon 94-33-5754Etdccwmjrcrfo [Mass/Vol]ug/mL Ddq34-67FwufdfMansfield HospitalComment on above:Performed By: #### 6745524, 3325023, 4964075, 63063317, 7411899, 4700590 ####[facility] [address] [place], [place] [address]Jdrl Diffon 56-09-5595Qmmxqmsyj/100 WBC (Bld)0.6 %Normal0.0-2.0Mansfield HospitalComment on above:Order Comment: Order Added by Discern Expert.Performed By: #### 4847034, 1337506, 3293559, 37414487, 8253766, 6938504 ####[address] [address]Rvojotsmj/Leukocytes Auto (Bld) [Pure # fraction]0.1 E9/LNormal0.0-0.2FMercy Health Kings Mills HospitalComment on above: Order Comment: Order Added by Discern Expert.Performed By: #### 4579445, 7596682, 0148140, 90639910, 1083144, 6568016 ####[place] [address] [place], [place] [address]Lzodzixjzud/100 WBC (Bld)2.9 %Normal 0.0-8.0M[facility]field HospitalComment on above:Order Comment: Order Added by Discern Expert.Performed By: #### 0689174, 9873247, 5069270, 49741815, 4838648, 1887737 ####[place] [address] [place], [place] [address]Dcsdnkzrgnh/Leukocytes Auto (Bld) [Pure # fraction]0.3 E9/LNormal0.0-0.5 Mansfield HospitalComment on above:Order Comment: Order Added by Discern Expert.Performed By: #### 8938333, 9906039, 4929465, 86909860, 5143637, 4757889 ####[place] [place], [place] [address]Joctvfganar/100 WBC (Bld)24.2 %Vylrjc15.0-50.0[facility] Comment on above:Order Comment: Order Added by Discern Expert.Performed By: #### 2025911, 3752704, 1822150, 22933888, 5872431, 7110947 ####[place] [address] [place], [place] [address]Ogxidptunat/Leukocytes Auto (Bld) [Pure # fraction]2.3 E9/LNormal1.0-4.0M[facility]field HospitalComment on above:Order Comment: Order Added by Discern Expert.Performed By: #### 0605188, 7916850, 5055154, 35596894, 3753957, 0931647 ####[address] [address]Rivgttjaf/100 WBC (Bld)6.5 % Normal4.0-14.0Mansfield HospitalComment on above:Order Comment: Order Added by Discern Expert.Performed By: #### 8242686, 8457561, 3303369, 42797114, 1394834, 0828855 ####[address] [address]Mdpvphbbd/Leukocytes Auto (Bld) [Pure # fraction]0.6 E9/L Normal0.2-1.0M[facility]field HospitalComment on above:Order Comment: Order Added by Discern Expert.Performed By: #### 8573496, 9981587, 7530403, 07566750, 9451766, 4747718 ####[address] [address]Ejrmechobjo/100 WBC (Bld)65.8 %Xryfng94.0-75.0M[facility]field HospitalComment on above:Order Comment: Order Added by Discern Expert. Performed By: #### 5498325, 7575289, 2415262, 01656769, 6800881, 2592417 ####[address] [place] [address] Neutrophils/Leukocytes Auto (Bld) [Pure # fraction]6.4 E9/LNormal2.0-7.5FMercy Health Kings Mills HospitalComment on above:Order Comment: Order Added by Discern Expert.Performed By: #### 9892109, 2577342, 2003336, 30287143, 2794940, 8065471 ####[address] [address]MEK w/ Auto Diffon 90-42-3084Sbaurnsnmoq distribution width (RBC) [Ratio]11.9 % Jfzmjs24.9-14.2FMercy Health Kings Mills HospitalComment on above:Performed By: #### 7639559, 6023375, 1578875, 65422411, 6752692, 9419621 ####[address] [address]Mvajrbthpv (Bld) [Volume fraction]37.9 %Cikeom44.0-46.0M[facility]field HospitalComment on above: Performed By: #### 5491643, 2827363, 7883517, 35260553, 7135633, 9044270 ####[address] [address] Hemoglobin (Bld) [Mass/Vol]13.2 g/wFCoivxs58.0-16.0[facility] Comment on above:Performed By: #### 8945404, 4551284, 4749880, 69754972, 5382732, 5834180 ####[place] [place], [place] [address]WUO (RBC) [Entitic mass]30.8 xlCeqmdb15.0-34.0M[facility]field HospitalComment on above:Performed By: #### 0459005, 1587535, 8932421, 90327384, 4928150, 7260267 ####[address] [place], [place] [address]JIPZ (RBC) [Mass/Vol]34.8 g/lEPgjtmz18.4-36.0M[facility] HospitalComment on above:Performed By: #### 3152579, 2628039, 5154228, 03851188, 2537547, 4365225 ####[place] [place], [place] [address]BDK (RBC) [Entitic vol]88.4 fLNormal 80.0-100.0M[facility]field HospitalComment on above:Performed By: #### 5892159, 6480597, 5516121, 86233317, 9976458, 9367366 ####[address] [address]Mtoayred mean volume (Bld) [Entitic vol]8.7 fLNormal6.4-10.8M[facility]field HospitalComment on above: Performed By: #### 5027334, 8788683, 8882628, 17801855, 0549096, 6652285 ####[address] [address] Platelets (Bld) [#/Vol]256.0 E9/SLaaiwn883.0-500.0[facility] Comment on above:Performed By: #### 2445292, 0391184, 0702350, 44329695, 6560098, 9878123 ####[address] [address]QWV (Bld) [#/Vol]4.3 E12/LNormal4.3-5.9M[facility]field HospitalComment on above:Performed By: #### 6778460, 4391561, 2004304, 96315911, 3881016, 4472002 ####[address] [address]UTT corrected for nucl RBC Auto (Bld) [#/Vol]9.7 E9/LNormal 4.0-11.0M[facility]field HospitalComment on above:Performed By: #### 5336296, 2374733, 7447039, 01282230, 0419194, 5890263 ####[address] [address]KHEmw 99-23-8609Phupwak [Mass/Vol]4.7 g/dLNormal3.3-5.0M[facility]field HospitalComment on above:Performed By: #### 7647139, 0865246, 8188038, 40888568, 9856137, 7335540 ####[address] [address]Tamxpyb/Globulin (S) [Mass conc ratio]1.4Manqsi4.1-2.2FMercy Health Kings Mills HospitalComment on above:Performed By: #### 3500621, 9303961, 4780057, 70680998, 3783884, 3521162 ####[address] [address]LXF [Catalytic activity/Vol]59 Int._Unit/WFnxdin86-42UljbxzMansfield HospitalComment on above:Performed By: #### 5753248, 8005596, 3039762, 48372072, 8120742, 8295171 ####[address] [address]RBI No additional P-5'-P [Catalytic activity/Vol]17 Int._Unit/LNormal6-46M[facility]field HospitalComment on above:Performed By: #### 1240448, 4582626, 8325797, 59176095, 3105412, 4870490 ####[address] [address]HYZ [Catalytic activity/Vol]20 Int._Unit/LNormal5-43M[facility] HospitalComment on above:Performed By: #### 8914568, 6266761, 9262032, 22317215, 1597391, 9429154 ####[address] [address]Hsjzfhasd [Mass/Vol] 1.1 mg/dLNormal0.0-1.1FMercy Health Kings Mills HospitalComment on above:Performed By: #### 0467846, 8554837, 3078466, 69933295, 5674971, 9522359 ####[facility] [address] [place], [place] [address]Xenkihosbx [Mass/Vol] 0.7 mg/dLNormal0.5-1.3FMercy Health Kings Mills HospitalComment on above:Performed By: #### 0080327, 7512886, 5864980, 32301403, 8729472, 2094440 ####[facility] [address] [place] [address]Mcqothrw (S) [Mass/Vol]3.6 g/dLNormal1.4-4.0M[facility] HospitalComment on above: Performed By: #### 0721102, 7521215, 8244123, 92201406, 2920197, 9911660 ####[facility] [address] [place] [address] Protein [Mass/Vol]8.3 g/dLHigh6.0-7.8M[facility] HospitalComment on above:Performed By: #### 2728681, 4603446, 2268632, 14536467, 7311947, 3176996 ####[address] [place], [place] [address]Acqf nitrogen [Mass/Vol]9 mg/dLNormal5-21M[facility]field HospitalComment on above: Performed By: #### 0910324, 2381085, 5187448, 97416168, 0674927, 7972142 ####[facility] [address] [place], [place] [address]Ftuw nitrogen/Creatinine [Mass ratio]13 No BptdiRiiaju64-35QmvodjMansfield HospitalComment on above:Performed By: #### 0380460, 5793816, 6084376, 93533427, 4880371, 1822253 ####[facility] [address] [place], [place] [address]Bggna gap [Moles/Vol]14 mmol/LNormal6-16M[facility]field HospitalComment on above:Performed By: #### 4810921, 7923525, 3313896, 12955728, 8956336, 8749298 ####[facility] [address] [place], [place] [address]Aglbhyu [Mass/Vol]9.9 mg/dLNormal8.9-11.1FMercy Health Kings Mills HospitalComment on above:Performed By: #### 1262287, 9670718, 2770843, 11229127, 3735973, 2178690 ####[facility] [address] [place], [place] [address]Ubgdjoxd [Moles/Vol]102 mmol/HDfovxl370-694KidvpwMansfield HospitalComment on above:Performed By: #### 2059967, 0374688, 2596111, 06170121, 6508014, 0192657 ####[facility] [address] [place], [place] [address]ZN0 [Moles/Vol]24 mmol/DDvnxhq85-24 [facility] HospitalComment on above:Performed By: #### 8634837, 2793794, 1281074, 65009762, 6058825, 3529762 ####[facility] [address] [place], [place] [address]Sxeexsd [Mass/Vol]103 mg/dLNormal 55-199M[facility]field HospitalComment on above:Result Comment: If this glucose result represents a fasting glucose, interpretation should refer tothe following reference range: 55-99 mg/dLPerformed By: #### 4422662, 0616305, 3131241, 99000990, 1621562, 9495685 ####[facility] [address] [place], [place] [address]Eoqwzvhgp [Moles/Vol]4.1 mmol/LNormal 3.5-5.3FMercy Health Kings Mills HospitalComment on above:Performed By: #### 8075168, 0895848, 1777053, 75366955, 3949991, 6904947 ####[facility] [address] [place], [place] [address]Zpiaga [Moles/Vol]136 mmol/LNormal 135-145M[facility]field HospitalComment on above:Performed By: #### 3220111, 1274814, 8182112, 11555087, 3867483, 8635489 ####[facility] [address] [place], [place] [address]Sokmxnx for Treatmenton 06-29-2022 Consent for [id number]#1.00CD:127Normal [facility] CenterED Note-Physicianon 17-93-8435UC Note-PhysicianBasic Information Time Seen: Arnoldo Wellington PA-C 06/29/2022 17:39 Chief Complaint pt arrives via [facility] for suicidal ideations. pt states she took 6 200mg ibuprofen around History of Present Illness 27-year-old female comes to the ED for evaluation of suicidal ideation. She has a history of depression. States she has tried to harm her self in the past. She describes increased stress recently andtoday she took 6 200 mg ibuprofen tablets. [...] MHP. She was accepted for placement at [facility] by Dr. Pepe. Assessment/Plan 1. [...] 34.8 gm/dL (06/29/22 18:01:00) RDW: 11.9 % (06/29/22 18::00) Platelet: 256 E9/L (06/29/22::00) MPV: 8.7 fL (06/29/22::00) Neutro Auto: 65.8 % (06/29/22::00) Lymph Auto: 24.2 % (06/29/22::00) [place] Auto: 6.5 % (06/29/22::00) Eos Auto: 2.9 % (06/29/22::00) Basophil Auto: 0.6 % (06/29/22::00) Neutro Absolute: 6.4 E9/L (06/29/22::00) Lymph Absolute: 2.3 E9/L (06/29/22::00) [place] Absolute: 0.6 E9/L (06/29/22::00) Eos Absolute: 0.3 E9/L (06/29/22::00) Basophil Absolute: 0.1 E9/L (06/29/22::00) Glucose Lvl: 103 mg/dL (06/29/22::00) BUN: 9 mg/dL (06/29/22::00) Creatinine: 0.7 mg/dL (06/29/22::) eGFR: >60 (06/29/22::) eGFR AA: >60 (06/29/22::00) BUN/Creat Ratio: 13 (06/29/22::00) Sodium Lvl: 136 mmol/L (06/29/22::00) Potassium Lvl: 4.1 mmol/L (06/29/22::00) Chloride: 102 mmol/L (06/29/22::00) CO2: 24 mmol/L (06/29/22::00) AGAP: 14 mEq/L (06/29/22::00) Calcium Lvl: 9.9 mg/dL (06/29/22::00) Alk Phos: 59 Int._Unit/L (10/27/22 18:01:00) ALT: 17 Int._Unit/L (06/29/22 18:01:00) AST: 20 Int._Unit/L (06/29/22 18:01:00) Total Protein: 8.3 gm/dL High (06/29/22 18:01:00) Albumin Lvl: 4.7 gm/dL (06/29/22 18:01:00) Globulin: 3.6 gm/dL (06/29/22 18:01:00) A/G Ratio: 1.3 (06/29/22 18:01:00) Bili Total: 1.1 mg/dL (06/29/22 18:01:00) Acetaminoph Lvl: <10 Low (10 (more content not included)...[facility] HospitalComment on above:Result Comment: Electronically Signed By: Arnoldo Wellington PA-C\.br\Date and Time Signed: 06/29/2218:19 EDT\.br\Electronically Co-Signed By: Lili Hollis DO\.br\Date and Time Co- Signed: 06/29/22 20:35 EDT\.br\Electronically Co-Signed By: Sai Vasquez DO\.br\Date and Time Co-Signed: 06/30/22 19:05 EDTEthanolon 35-25-3198Rhdslml [Mass/Vol]mg/dLNormal<=7[facility] CenterComment on above:Performed By: #### [id number] ####[address] [address]Wkgpo COVID Antigen (MC)on 80-83-5343Hemao COV Int NEG Ctl PassNoCleveland Clinic South Pointe HospitalComment on above:Performed By: #### [id number] ####[address] [address]Howdb COV Int POS CtlPassNormGuernsey Memorial HospitalComment on above: Performed By: #### [id number] ####[address]SARS-CoV+SARS-CoV-2 (COVID-19) Ag IA.rapid Ql (Resp) Not detectedNormalNot DetectedMansfield HospitalComment on above:Result Comment: The card.io System for Rapid Detection of SARS-CoV-2 is a chromatographic digital immunoassay intended for the direct and qualitative detection of SARS-CoV-2 nucleocapsid antigensin nasal swabs from individuals who are suspected [...] For in vitro diagnostic use. In the [facility], only for use under an Emergency Use [...] of proteins from SARS-CoV-2, not for any otherviruses or pathogens; and, in the [place], this test is only authorized for the duration of the declaration that circumstances exist justifying the authorization of emergency use of in vitro diagnostics for detection and/or diagnosis of the virus that causes COVID-19 under Section 564(b)(1) of the Act,21 U.S.C. ? 360bbb-3(b)(1), unless the authorization is terminated or revoked sooner.Performed By: #### [id number] ####[facility] Vbhlpyiabz166 [address] Luna, [id number] TO INTENSIVE CARE UNIT FOR CONDITION OF INTEREST:FIND:PT:NONormalMansfield Hospital Comment on above:Performed By: #### [id number] ####[place] [address] [facility], [id number] IN A HEALTHCARE SETTING:FIND:PT:[facility] HospitalComment on above:Performed By: #### [id number] ####[address]FIRST TEST FOR CONDITION OF INTEREST:FIND:PT:YESNormalMansfield HospitalComment on above:Performed By: #### [id number] ####[address]HAS SYMPTOMS RELATED TO CONDITION OF INTEREST:FIND:PT:[facility] Comment on above:Performed By: #### [id number] ####[address]HOSPITALIZED FOR CONDITION OF INTEREST:FIND:PT:[facility] HospitalComment on above:Performed By: #### [id number] ####[address]PREGNANCY STATUS:FIND:PT:[facility] Comment on above:Performed By: #### [id number] ####[address]RESIDES IN A CONGREGATE CARE SETTING:FIND:PT:[facility] HospitalComment on above:Performed By: #### [id number] ####[address], YX[address]Pkoorhouppyi 99-67-3037Holqrcqxxoj [Mass/Vol]mg/dLLow- Mansfield HospitalComment on above:Performed By: #### [id number], [id number], [id number], [id number], [id number], [id number] ####[facility] [address] [place] [address]J BetaHcg Qualon 89-76-0840NXA.beta subunit (U) [Moles/Vol][facility]acon[facility] HospitalComment on above:Performed By: #### [id number] ####[address] [place], [place] [address]W Drug Screenon 07-12-2501Ylffhxopnrqi Screen method >1000 ng/mL Ql (U)NegativermalNegPomerene Hospital Comment on above:Result Comment: Negative Cutoff: <1000 ng/mLPerformed By: #### [id number] ####[address] [address]Fwawvvopsknr Screen Ql (U)[facility] Comment on above:Result Comment: Negative Cutoff: <200 ng/mLPerformed By: #### [id number] ####[address] [address]Ldndtpsmcxebmct Ql (U)[facility] HospitalrmalNegPomerene Hospital Comment on above:Result Comment: Negative Cutoff: <200 ng/mLPerformed By: #### [id number] ####[address] [address]Wsifcke Ql (U)[facility] HospitalNormalNegativeMansfield HospitalComment on above:Result Comment: Negative Cutoff: <300 ng/mLPerformed By: #### [id number] ####[address] [address] Opiates Screen Ql (U)NegativeNormalNegativeMansfield HospitalComment on above:Result Comment: Negative Cutoff: <300 ng/mLPerformed By: #### [id number] ####[address] [address] Phencyclidine Screen method >25 ng/mL Ql (U)[facility] Regional HospitalrmalNegativeMansfield HospitalComment on above:Result Comment: Negative Cutoff: <25 ng/mL These drug screen results are to be used for medical (i.e., treatment) purposes only. Unconfirmed drug screening results must not be used for non-medical purposes (e.g., employment testing, legal testing).Performed By: #### [id number] ####[address] [place] [address] Tetrahydrocannabinol Screen method >50 ng/mL Ql (U)NegativeNormalNegativeMansfield HospitalComment on above:Result Comment: Negative Cutoff: <50 ng/mL Performed By: #### [id number] ####[address] [place], [place] [address]lQNPrg 65-79-1339SCU/1.73 sq M.predicted among blacks MDRD (S/P/Bld) [Vol rate/Area]mL/min/{1.73_m2}Normal>=59Mansfield HospitalComment on above:Order Comment: Order added by Discern Expert. Result Comment: eGFR is race adjusted. AA=.Performed By: #### [id number], [id number], [id number], [id number], [id number], [id number] ####[address] [place], [place] [address]TYJ/1.73 sq M.predicted among non-blacks MDRD (S/P/Bld) [Vol rate/Area]mL/min/{1.73_m2}Normal>=59Mansfield HospitalComment on above:Order Comment: Order added by Discern Expert. Result Comment: Chronic kidney disease could be indicated at eGFR's of less than 60 mL/min/1.73m2. Kidney failure is indicated at less than 15 mL/min/1.73m2. Performed By: #### [id number], [id number], [id number], [id number], [id number], [id number] ####[address] [place] [address] Coding Summary.on 20-23-4272Hgptmd Summary. CD:[id number]:[id number]+PGhlYWQ+SW9TVKJuC88clPTbzE3RX6bUMQ3ZQTOLDXPASQ0BRE5uw RA8PYuoT5DjsxOt [file] [facility] (more content not included)...NormalMansfield HospitalCT Head or Brain w/ + w/o Contraston 69-62-2906AM Head or Brain w/ + w/o ContrastExam Date/Time: 06/12/2022 11:32 EDT Reason for Exam: [...] Contrast: Isovue 300 Contrast amount in ml's: 100NormGuernsey Memorial HospitalConsent for Treatmenton 63-99-8486Adgfnpy for Treatment [id number]#1.00CD:127NormGuernsey Memorial HospitalPREGNANCY URon 44-06-8008TBERPUEYC, QUALNegativeNormalNEGATIVEThe [facility] CenterComment on above:Performed By: #### PREGU #### [facility] [address] [place] [address] Dr. Jorge Vera ACOG PANEL 2: 21 to 29on 03-24-2022..NormalThe [facility] on above:Performed By: #### [id number] #### [facility] [address] [place] [address] Dr. Jorge PerezDIAGNOSIS:[facility] on above: Result Comment: NEGATIVE FOR INTRAEPITHELIAL LESION OR MALIGNANCY. THIS SPECIMEN WAS RESCREENED PART OF OUR VALUE STREAM MANAGER PROGRAM.Performed By: #### [id number] #### [place] [address] Dr[address] Jorge PerezMethodology:CommentDiley Ridge Medical Center on above: Result Comment: This liquid based ThinPrep(R) pap test was screened with the use of an image guided system.Performed By: #### [id number] #### [place] [address] Dr[address] Jorge PerezNote:CommentDiley Ridge Medical Center on above:Result Comment: The Pap smear is a screening test designed to aid in the detection of premalignant and malignant conditions of the uterine cervix. It is not a diagnostic procedure and should not be used as the sole means of detecting cervical cancer. Both false-positive and false-negative reports do occur. .Performed By: #### [id number] #### [place] [address] [address] Joreg PerezPerformed by:[facility] on above: Result Comment: Micheal Fraire Paint Department Supervisor (ASCP)Performed By: #### [id number] #### [place] [address] Dr[address] Jorge PerezQC reviewed by:[facility] on above:Result Comment: Karina Khanna, Paint Department Supervisor (ASCP)Performed By: #### [id number] #### [place] [address] Dr[address] Jorge PerezReflex Criteria:[facility] on above:Result Comment: The HPV DNA reflex criteria were not met with this specimen result therefore, no HPV testing was performed. .Performed By: #### [id number] #### [facility] [address] [place] [address] Dr. Jorge PerezSpecimen adequacy:CommentKindred Hospital DaytonComment on above:Result Comment: Satisfactory for evaluation. Endocervical and/or squamous metaplastic cells (endocervical component) are present.Performed By: #### [id number] #### [facility] [address] [address] [address] Jorge PerezAge Gdln ACOG Akogjij31-23NbxbluWwhNewark HospitalComment on above:Performed By: #### [id number] #### [facility] [address] [place] [address] Dr. Jorge Perez Vital Signs Date TimeVital SignValuePerforming PohcbxddmXhhijafm94-72-2595 11:43-0500Body mass index (BMI) [Ratio]28.7 kg/m2Mamie Ankur PA Work Phone: [phone] [place], [place] [address]Xvyxqgbrct77-97-5299 11:43-0500Body qufret63.48 kgMamie Ankur PA Work Phone: [phone] [place], [place] [address]Xcnegxfnxe59-00-4444 11:43-0500Diastolic blood exhdlmvp89 mm[Hg]Mamie Adler PA Work Phone: [phone] [place], [place] [address]Lhuoylzvhs62-62-9251 11:43-0500Systolic blood yejwfdlg890 mm[Hg]Mamie OSBORNE Work Phone: [phone] HospitalLtbhlpuxqq51-42-9437 11:31-0400Body mass index (BMI) [Ratio]28.01 kg/i1Rmgwk Carmela DO Work Phone: [phone] HospitalZubtmvbzxv54-48-4174 11:31-0400Body jahkzv38.72 kgCorey Carmela DO Work Phone: [phone] HospitalQxdbtcatlq68-45-2107 11:31-0400Diastolic blood qufxgmwm27 mm[Hg]Sanjeev Carmela DO Work Phone: [phone] HospitalUniversity [facility]'s HospitalZirbnmvzol54-23-2055 11:31-0400Systolic blood oyldxtdp390 mm[Hg]Sanjeev Carmela DO Work Phone: [facility] HospitalAwkkjpdnrx73-09-9954 11:37-0400Body mass index (BMI) [Ratio]27.68 kg/m2Amy Ankur PA Work Phone: [phone] [place], [place] [address]Mimotsdnyt51-25-6550 11:37-0400Body kjlbci90.88 kgAmy Ankur PA Work Phone: [phone] [place], [place] [address]Lkyqogwacb09-06-6872 11:37-0400Diastolic blood rrqvydgb79 mm[Hg]Mamie Adler PA Work Phone: [phone] [place], [place] [address]Awpmglabev24-64-7753 11:37-0400Systolic blood qigjbylw270 mm[Hg]Mamie Adler PA Work Phone: [phone] [place], [place] [address]Lbwiwrjoaw68-78-9660 09:43-0400Body mass index (BMI) [Ratio]25.95 kg/m1Jipjq Carmela DO Work Phone: [phone] [place], [place] [address]Youlbrkydj80-06-0638 09:43-0400Body afhtqp57.45 kgCorey Carmela DO Work Phone: [phone] [place] [address]-15-2025 09:43-0400Diastolic blood kowkwfsj44 mm[Hg]Sanjeev Carmela DO Work Phone: [phone] [place] [address]-15-2025 09:43-0400Systolic blood zxmwjzvi838 mm[Hg]Sanjeev Carmela DO Work Phone: [phone] [place], [place] [address]Mkcydzhbmu14-06-7444 11:40-0400Body mass index (BMI) [Ratio]24.94 kg/m2Amy Ankur PA Work Phone: [phone] [place], [place] [address]Jromcmnpxr89-47-3579 11:40-0400Body qpjjro11.87 kgAmy Ankur PA Work Phone: [phone] [place] [address]-18-2025 11:40-0400Diastolic blood nzdtnake51 mm[Hg]Mamie Adler PA Work Phone: [phone] [place], [place] [address]Solvtablrf44-59-5781 11:40-0400Systolic blood cncdgyfb205 mm[Hg]Mamie Ankur PA Work Phone: [facility] HospitalUlgjfmlezw25-53-2211 11:32-0400Body mass index (BMI) [Ratio]24 kg/a8Rdqcm Carmela DO Work Phone: [facility] HospitalXfmizhqrhe27-85-6774 11:32-0400Body xezohm05.46 kgCorerc Amadoro DO Work Phone: [facility] HospitalEgbcqcublj31-59-4797 11:32-0400Diastolic blood mm[Hg]Sanjeevrc Casey DO Work Phone: [facility] HospitalAvqmalmhfo13-78-9308 11:32-0400Systolic blood zwwtltyy655 mm[Hg]Sanjeev Casey DO Work Phone: [facility] HospitalYvmvmcejzy80-13-9317 11:13-0400Body mass index (BMI) [Ratio]24.11 kg/c4[facility]tsozC[facility]06-27-2025 11:13-0400Body weight 61.75 kgC[facility] Hospital06-27-2025 11:13-0400Diastolic blood mugemyvm78 mm[Hg][facility]06-27-2025 11:13-0400Systolic blood mm[Hg][facility]02-08-2024 15:40-0500Body mass index (BMI) [Ratio] 27.81 kg/m2Mamie OSBORNE Work Phone: [facility] HospitalXnitdepmxo83-90-9455 15:40-0500Body nmkifc51.22 kgMamie OSBORNE Work Phone: [facility] HospitalHcxbpzakmm91-46-1045 15:40-0500Diastolic blood tuawbzzp87 mm[Hg]Mamie OSBORNE Work Phone: [facility] HospitalMbxeuqbugv52-48-4262 15:40-0500Systolic blood mm[Hg]Mamie OSBORNE Work Phone: [facility] HospitalXivvxwypic98-70-1673 07:30-0400Body temperature 97.8 [degF]MD Shannon Glez Work Phone: [phone]10-31-2022 07:30-0400 Diastolic blood mipgdxfb49 mm[Hg]MD Shannon Glez Work Phone: [phone] [place], [place] [address]10-31-2022 07:30-0400 Heart rate93 /minMD Shannon Glez Work Phone: [phone] [place], [place] 1171310-31-2022 07:30-0400 Respiratory rate16 /minMD Shannon Glez Work Phone: [phone] [place], [place] 1171310-31-2022 07:30-0400 SaO2% (BldA) [Mass fraction]98 %MD Shannon Glez Work Phone: [phone] [place], [place] 1171310-31-2022 07:30-0400 Systolic blood hxbysvnt456 mm[Hg]MD Shannon Glez Work Phone: [phone] [place], [place] 1171310-28-2022 15:55-0400 Body odyksi971.02 cmMD Shannon Glez Work Phone: [phone] [place], [place] 1171310-28-2022 03:18-0400 Body .15 kgMD Shannon Glez Work Phone: [phone] Encounters Encounter DateEncounter TypeCare ProviderFacilityStart: 07-14-2025 End: 48-47-3102zkubdedowlVCC RAMEYNot AvailableStart: 07-14-2025 End: 65-20-4069Prvacl outpatient visit 15 minutesMamie OSBORNE Work Phone: NOWB [facility] OBGYNComment on above:Size of fetus inconsistent with dates in second trimester ([facility]) (Primary Dx); Third trimester ([facility]); 28 weeks gestation of ([facility])Start: 06-30-2025 End: 20-96-2659Zxndyxihj Result EncounterMamie OSBORNE Work Phone: NOVC External Department UnsolicitedStart: 06-30-2025 End: 09-49-5231Jpstpekkf Result EncounterMamie OSBORNE Work Phone: MARY External Department UnsolicitedStart: 06-30-2025 End: 34-58-2402obfowfzhfqEARVD FAZIONot AvailableStart: 06-30-2025 End: 90-46-8771Xyamiz outpatient visit 15 minutesCorey Carmela DO Work Phone: NO [facility]wood OBGYNComment on above:Second trimester ([facility]); 26 weeks gestation of ([facility])Start: 06-15-2025 End: 03-23-1312Lpfaqa Marian OSBORNE Work Phone: NO Jessica OBGYNStart: 06-15-2025 End: 44-74-1300Oflxhh Marian OSBORNE Work Phone: NO Jessica OBGYNStart: 06-15-2025 End: 20-52-9493ayvhzcxanoAQC RAMEYNot AvailableStart: 06-15-2025 End: 31-14-3824Cbssmz outpatient visit 15 minutesMamie OSBORNE Work Phone: NO Jessica OBGYNComment on above:Second trimester ([facility]); 24 weeks gestation of ([facility]); Diabetes mellitus screeningStart: 05-18-2025 End: 82-06-5589fbfujrrglaHORMI FAZIONot AvailableStart: 05-18-2025 End: 27-61-0053Bituyi outpatient visit 15 minutesCorey Carmela DO Work Phone: NOMS Garwood OBGYNComment on above:Second trimester ([facility]); 20 weeks gestation of ([facility])Start: 05-18-2025 End: 57-02-9461jaemndltimNLM RAMEYNot AvailableStart: 04-20-2025 End: 54-22-8488Juaqhp Marian OSBORNE Work Phone: NO Jessica OBGYNStart: 04-20-2025 End: 21-71-8178Zbadcv Marian OSBORNE Work Phone: NOMS Jessica OBGYNStart: 04-20-2025 End: 50-18-9535Tuuhkxbhg Result EncounterMamie Ankur OSBORNE Work Phone: noms External Department UnsolicitedStart: 04-20-2025 End: 41-88-7559Hnuvylpc Result EncounterMamie Ankur OSBORNE Work Phone: noms External Department UnsolicitedStart: 04-20-2025 End: 04-93-9551vbzifjcudeEMR YULISAChloé AvailableStart: 04-20-2025 End: 34-60-3280Gvimhiy encounter procedureMamie Ankur OSBORNE Work Phone: [facility] Work Phone: Start: 04-20-2025 End: 50-83-9527Eruspxnj preventive med est patient 18-39 yrsMamie Ankur OSBORNE Work Phone: noms Garwood OBGYNComment on above:Well woman exam with routine gynecological exam; Second trimester ([facility]); 16 weeks gestation of ([facility]); Vaginal discharge; STD exposure; Screening, , for anatomic survey ([facility])Start: 03-23-2025 End: 43-28-1336Mxmzcj flowsheetCorey Carmela DO Work Phone: noms BCP OBStart: 03-23-2025 End: 52-96-5162Pnqnvh flowsheetCorey Carmela DO Work Phone: noms BCP OBStart: 03-23-2025 End: 69-07-0957ibiyzxgtaiXKOPS FAZIONot AvailableStart: 03-23-2025 End: 37-56-1305Tskrgv outpatient visit 15 minutesCorey Carmela DO Work Phone: noms BCP OBComment on above:First trimester ([facility]); 12 weeks gestation of ([facility])Start: 03-13-2025 End: 28-40-6349Pbwaupwxa Result EncounterCorey Carmela DO Work Phone: noms External Department UnsolicitedStart: 03-13-2025 End: 74-84-5607Qmaojossp Result EncounterCorey Carmela DO Work Phone: noms External Department UnsolicitedStart: 02-27-2025 End: 25-57-9441Coqyjw outpatient visit 5 minutesFaalejo Scales Noms Bcp ObNOMS BCP OBComment on above:GA: 8m5aCzdix: 02-27-2025 End: 75-93-5649mhjiwhczxnOOEDQ FAZIONot AvailableStart: 10-11-2023 End: 66-47-2155Weoyre outpatient visit 10 minutesMamie OSBORNE Work Phone: noms BCP OBComment on above:S/P C-sectionStart: 08-17-2023 End: 90-51-2855Tqvoenqmd Result EncounterCorey Carmela DO Work Phone: noms External Department UnsolicitedStart: 08-17-2023 End: 33-51-0553Akbxkjppp Result EncounterCorey Carmela DO Work Phone: noms External Department UnsolicitedStart: 06-06-2023 End: 61-90-0140sxmtupkvqjIidef M. DempseyFacility:CC LaykStart: 12-25-2022 End: 65-34-3969jgjchlmeyjBVHT N THOMPSONFacility:FTMCStart: 12-09-2022 End: 84-89-2197lpzmexnrvpUromgx M BAILEYFacility:CC NorronniekStart: 12-04-2022 End: 85-91-3434eqgmedlgouXqiafh X OrzechFacility:CC NorwalkStart: 11-13-2022 End: 96-26-7617ujhktwjuygEBBFGNM C KOLCZUNFacility:[facility] Start: 11-13-2022 End: 66-61-0124Hnakihbktt hospital visit by physicianArden Morgan 1 Work Phone: RadiologyComment on above:Internal derangement of left knee [M23.92]Start: 10-11-2022 End: 96-33-2831znnifjxzkiBDDIUFFS EBERLYFacility:I5Biedc: 09-06-2022 End: 48-36-1535zlrwxlopghFRTE THOMPSONFacility:E0Umgis: 06-30-2022 End: 98-82-6893Ryavwlqmmk and management of inpatientAdeyemi Afshin Facility:[facility]: 06-30-2022 End: 72-88-2372Ohlmogfssc and management of inpatientMD Shannon Glez Work Phone: [facility] SouthStart: 06-29-2022 End: 29-02-7766Npkfoelut department patient visitSai MurphySadi VasquezFacility:[facility] Start: 06-12-2022 End: 42-20-3529wzbssfyadmOakkdhabadu M. HassettFacility:FTBALDWIN PARK HOSPITALtart: 04-04-2022 End: 19-74-4657ohkuvmpvwlTMCA THOMPSONFacility:A9Ugtrp: 03-20-2022 End: 36-24-4310yvtwebivvkZC SANJEEV FAZIOFacility:H1 Procedures DateProcedureProcedure DetailPerforming ClinicianStart: 98-08-3255Gcjuj dip stick/tablet rgnt non-auto w/o micrscpCorey Carmela DO Work Phone: Start: 59-05-6024KPY CBC WITH AUTO Yael OSBORNE Work Phone: Start: 98-88-3768Xthno dip stick/tablet rgnt non-auto w/o micrscpAronnell OSBORNE Work Phone: Start: 86-79-6603Eeihi dip stick/tablet rgnt non-auto w/o micrscpCorey Carmela DO Work Phone: Start: 89-89-5630ZOFHXKHFP VAGINITIS (HTRX)Mamie OSBORNE Work Phone: Start: 20-93-1182[facility]C,APTIMA HPV,AGE GDLNMamie OSBORNE Work Phone: Start: 97-55-7314Washe dip stick/tablet rgnt non-auto w/o micrscpCorey Carmela DO Work Phone: Start: 60-36-4354FUZ TESTCorey Carmela DO Work Phone: Start: 60-37-5288Yjfua dip stick/tablet rgnt non-auto w/o micrscpCorey Carmela DO Work Phone: Start: 18-45-9113SU OB GROWTHCorey Carmela DO Work Phone: Start: 81-01-3828Bmrlzmbfex exam knee complete 4/more viewsAudrey Morgan MD Work Phone: H/O: sectionS/P C-sectionMamie OSBORNE Work Phone: Plan of Treatment DateCare ActivityDetailAuthorStart: 06-21-9063Xmthg microalbumin profile DTaP,Tdap,Td Vaccine (8 - Td or Tdap)[facility] Systemtart: 07-29-2025 End: 33-36-1705Udynscw encounter dcayoqgre62/26/2025 1:40 PM EST Routine [facility] [address] [facility] [address] [id number] Sanjeev Casey DO [address] [place], [place] [address] NOM[facility] Jessica OBGYNStart: 07-29-2025 End: 52-49-3917Jqtmwipxcuwe / ancillary services kfywrjfzli21/26/2025 1:00 PM EST Ancillary Procedure [facility] [address] [place] [address] [facility]wood OBGYNStart: 07-14-2025 End: 94-15-0761IW for pregnancyUS OB follow up transabdominal approach Imaging Routine Size of fetus inconsistent with dates in second trimester ([facility]) Expected: 07/14/2025, Expires: 11/11/2025[facility] Work Phone: comment on above:Expected: 07/14/2025, Expires: 11/11/2025Start: 07-14-2025 End: 69-61-1366Ewqxpzh encounter cvrhbzami55/11/2025 11:20 AM EST Routine [facility] [address] [place] [address] Mamie Adler PA [address] [place], [place] [address] N[facility] Jessica OBGYNStart: 06-30-2025 End: 66-91-9221Xsfaxah encounter itngszxvw80/28/2025 11:00 AM EDT Routine [facility] [address] [place] [address] Sanjeev Casey DO [address] [place] [place], [place] [address] [facility] Jessica OBGYNStart: 06-15-2025 End: 82-64-8516CGO panel - Blood by Automated countCBC Lab Routine Diabetes mellitus screening Expected: 06/15/2025 (Approximate), Expires: 06/15/2026[facility] Work Phone: comment on above:Expected: 06/15/2025 (Approximate), Expires: 06/15/2026Start: 06-15-2025 End: 16-19-2472Hixpsnkcnsr of glucose 1 hour after glucose challenge for glucose tolerance testGlucose tolerance, 1 hour Lab Routine Diabetes mellitus screening Expected: 06/15/2025 (Approximate), Expires: 06/15/2026[facility]:Expected: 06/15/2025 (Approximate), Expires: 06/15/2026Start: 06-15-2025 End: 20-29-7005Arzozvm encounter csguziljr81/13/2025 11:30 AM EDT Routine [facility] [address] [place] [address] Mamie Adler, PA [address] [place] [address] [facility] Jessica OBGYNStart: 05-18-2025 End: [id number] encounter /15/2025 9:30 AM EDT Routine [facility] [address] [place], [id number] Sanjeev Casey DO [address] [place] [address] [facility] Jessica OBGYNStart: 05-18-2025 End: [id number] / ancillary services cdcvviqsvd03/15/2025 8:30 AM EDT Ancillary Procedure [facility] [address] [place] [address] [facility]BGYNStart: 04-20-2025 End: 06-28-3679Bvnjs fetoprotein, maternalAlpha fetoprotein, maternal Lab Routine Second trimester ([facility]) 16 weeks gestation of ([facility]) Expected: 04/20/2025 (Approximate), Expires: 10/21/2025[facility] Healthcare Comment on above:Expected: 04/20/2025 (Approximate), Expires: 10/21/2025Start: 04-20-2025 End: 11-94-0548GD for pregnancyUS OB 14+ weeks anatomy scan Imaging Routine Screening, , for anatomic survey ([facility]) Expected: 04/20/2025, Expires: 07/21/2025[facility] HealthcareComment on above:Expected: 04/20/2025, Expires: 07/21/2025Start: 04-20-2025 End: 24-76-3260Bfvjvnm encounter nbwgfzkyv08/18/2025 11:20 AM EDT Routine [facility] [address] [place] [id number] Mamie Adler PA [address] [place], [place] [id number] [facility] OBStart: 03-23-2025 End: 30-26-6067Wjalsuk encounter spivorqaf63/21/2025 11:10 AM EDT Routine [facility] [address] [place] [phone] Sanjeev Casey, DO [address] [address] [facility] OBStart: 02-27-2025 End: 58-92-5173CXZ/RhABO/Rh Lab Routine Missed menses , unspecified gestational age ([facility]) Expected: 02/27/2025 (Approximate), Expires: 02/27/2026[facility] HealthcareComment on above:Expected: 02/27/2025 (Approximate), Expires: 02/27/2026Start: 02-27-2025 End: 74-97-3163Skees type and Indirect antibody screen panel - BloodType and screen Lab Routine Missed menses , unspecified gestational age ([facility]) Expected: 02/27/2025 (Approximate), Expires: 02/27/2026[facility] Healthcare Comment on above:Expected: 02/27/2025 (Approximate), Expires: 02/27/2026Start: 02-27-2025 End: 73-44-3961Jziic of abuse panel - Urine by Screen methodRapid drug screen, urine Lab Routine , unspecified gestational age ([facility]) Encounter for supervision of normal first in first trimester ([facility]) Expected: 02/27/2025 (Approximate), Expires: 02/27/2026[facility] HealthcareComment on above: Expected: 02/27/2025 (Approximate), Expires: 02/27/2026Start: 02-19-2025 End: 06-41-8636ZE Pelvis transvaginalUS OB transvaginal Imaging Routine Missed menses Expected: 02/19/2025, Expires: 05/22/2025[facility] Work Phone: comment on above:Expected: 02/19/2025, Expires: 05/22/2025Start: 07-33-5170Ntihr-19 Vaccine ( season)Covid-19 Vaccine ( season)[facility] 09-72-0656Mibwkgely vaccination Influenza Vaccine (#1)[facility]: 10-25-2023 End: 16-82-1467tpcwupmiqi32/22/2024 2:30 PM EST Visit [facility] [address] [place] [phone] Mamie Adler PA [address] [place] [address] [facility] OBStart: 47-23-5502WbhkhpzsxAdena Pike Medical Centertart: 06-30-2022 Referral to Social ServicesAdena Pike Medical Centertart: 06-30-2022 Hospital admissionAdena Pike Medical Centertart: 35-37-1779Ifwhnjloj for malignant neoplasm of cervixCervical Cancer ScreeningOhio State Health Systemtart: 08-70-9461Duogzzs ScreeningAnxiety ScreeningOhio State Health Systemtart: 2015 Depression ScreeningDepression ScreeningOhio State Health Systemtart: 2015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 and learn coping skills during hospitalization. On the day ofdischarge she reported she is feeling better. She [...] No activity restrictions. Instructions: Anxiety, Adult ([place]), [facility] [place] Instructions Stand Alone Forms: Work/School Release Form Prescriptions: New trazodone 50 mg Tablet 50 mg PO QHS PRN (Reason: Insomnia) Qty: 30 0RF duloxetine 30 mg Capsule,Delayed Release(Dr/Ec) 30 mg PO QHS 30 Days Qty: 30 0RF Continued Ajovy Autoinjector 225 mg/1.5 mL Auto-Injector 225 mg SUBCUT QWEEK Follow Up: [facility] [Outside] [facility] [Outside] - 07/07/22 10:45 am (Psychiatry: 07/07/22 @ 10:45am with Fiona Grier CNP Therapy: Sunday07/14/22 @ 11:00am with [place] ) Documented By: Kyle Pepe MD 07/03/22 1107 Signed By: <Electronically signed by Kyle Pepe MD> 07/03/22 132[address] [facility] Work Phone: 1(784) 731-428210-30-2022 Progress note Author Kyle Pepe [facility] July 02, 2022 12:56pmNote Date/TimeOct2021 12:55pm[place] [address] Psychiatry Progress Note Signed Patient: Rosalva Hardin MR#: [id number] : 1995 Acct:[id number] Age/Sex: 27 / F Adm Date: 2 Loc: Room: [address] [place] [address] Type : ADM IN Attending Dr: Kyle Pepe MD Copies to: ~ Date of Service: 07/02/2022 Subjective Subjective Narrative: Ms. Hardin reported that she is doing okay. She reported that she slept fairly well last night. She denied any side effects from current medications. She denied any suicidal thoughts at this time. Shestated that she lives with her boyfriend but [...] signed by Kyle Pepe MD> 07/02/22 [address] [facility] Work Phone: 1(156) 716-435610-29-2022 Progress note Author Kyle Pepe [facility] July 01, 2022 12:46pmNote Date/TimeOctober 2021 9:01[place] [address] Psychiatry Progress Note Signed Patient: Rosalva Hardin MR#: [id number] : 1995 Acct:[id number] Age/Sex: 27 / F Adm Date: 2 Loc: Room: [address] [place] [address] Type : ADM IN Attending Dr: Kyle [...] and denies side effects. Patient has been a ttending group therapy and mingling with other patients. She reports her appetite has been fine andshe has been sleeping well. Mental status exam [...] the encounter. I reviewed the history and performedthe dougherty elements of the physical examination. I formulated the plan of care and confirmed this withthe resident as noted below. Patient reported that she is tolerating the medications. She reported that her depression has been improving and is usually not too bad when she is around a lot of people. She currently lives at homewith her boyfriend which she stated is safe [...] therapy. She follows with outpatient [facility]. Continue Cymbalta 30 mg daily Monitor suicidal behaviors for safety of self (15-minute face check) Recommend attending groups and psychoeducation for building coping skills Risks, benefits and indications of medications were discussed with the patient Documented By: Areli Barbosa DO, RES 07/01/22 0901 Signed By: <Electronically signed by DO CHERRY Barbosa> 07/01/22 1041 <Electronically signed by Kyle Pepe MD> 07/01/22 1246 [facility] Work Phone: 1(946) 824-191910-28-2022 History and physical note Author Kyle Pepe [facility] June 30, 2022 4:32pmNote Date/TimeOctober 2021 9:25[place] [address] Psychiatry H&P Signed Patient: Rosalva Hardin MR#: [id number] : 1995 Acct:[id number] Age/Sex: 27 / F Adm Date: 2 Loc: Room: [address] [place] [address] Type: ADM IN Attending Dr: Kyle Pepe MD Copies to: MD Shannon Gillespie MD, DO, RES~ Date of Service: 06/30/2022 HPI History of Present Illness History of present illness: Ms. Hardin is a 27 year old female that was admitted to [facility] for attempted overdose. Patient states she took 6 Motrin pills and called emergency services immediately after as she became afraid of whatwould happen. Patient endorses suicidal ideation with multiple plans and history of self-harm by scratching herself. She endorses several life stressors and states her best friend of 13 years is no longer her friend. She states her boyfriend is a good support system and waited in the emergency roomwith her last night. Patient states shehas had [...] nurse practitioner and the therapist at [facility].Patient states she has been diagnosed with generalized anxiety disorder in the past.She states her doctor is working her up for unspecified bipolar disorder. Patient does endorse somemanic symptoms but states they onlylast for short [...] Reports childhood trauma Living: With boyfriend Employment: [employer] Mental status exam Appearance: Grossly normal [...] the encounter. I reviewed the history and performedthe dougherty elements of the physical examination. I formulated the plan of care and confirmed this withthe resident as noted below. Patient presenting due to concern for depression and suicidal ideation. She does report being on medications in the past that she stated were not helpful. She does not report any sustained periods ofmania in the past. She is open to medications at this time. She reported that she saw neurologist in the past andhas been diagnosed with anxiety induced migraines. [facility]?: No Medical History (Updated [...] suicidal thoughts at the moment. Patient states shanel is working her up for possible bipolar [...] 06/30/22 0925 Signed By: <Electronically signed by DO CHERRY Barbosa> 06/30/22 1211 <Electronically signed by Kyle Pepe MD> 06/30/22 1632 [facility] Work Phone: 1(628) 298-163108-02-2022 NotePROCEDURE: XR WRIST LT MIN 3 V HISTORY: Bone injury ; acute left wrist pain after falling COMPARISON: None. FINDINGS: BONES:No fracture, acute abnormality, or significant arthropathy. SOFT TISSUES:No visible soft tissue swelling. EFFUSION:None visible. OTHER: Negative. IMPRESSION: 1. No acute bone abnormality. Electronically authenticated by: BRYAN ESPINO Date: 2022-04-04 14:16[facility] note* Diagnosis Onset Date Resolution Status Anxiety acuteSuicidal ideationacuteSuicide attempt by drug overdoseacute [facility] Work Phone: Evaluation note* Diagnosis S/P documented in this encounter [facility] HealthcareEvaluation note* Diagnosis Internal derangement of left knee Unspecified internal derangement of knee [facility] Diagnosis Missed menses , unspecified gestational age ([facility]) Encounter for supervision of normal first in first trimester ([facility]) Gastroesophageal reflux in ([facility]) documented in this encounter [facility] HealthcareEvaluation note* Diagnosis First trimester ([facility]) state, incidental 12 weeks gestation of ([facility]) documented in this encounter [facility] HealthcareEvaluation note* Diagnosis Well woman exam with routine gynecological exam Routine gynecological examination Second trimester ([facility]) state, incidental 16 weeks gestation of ([facility]) Vaginal discharge Leukorrhea, not specified as infective STD exposure Screening, , for anatomic survey ([facility]) Encounter for anatomic survey documented in this encounter [facility]* Diagnosis Second trimester ([facility]) state, incidental 20 weeks gestation of ([facility]) [facility]* Diagnosis Second trimester ([facility]) state, incidental 24 weeks gestation of ([facility]) Diabetes mellitus screening Screening for diabetes mellitus documented [facility]* Diagnosis Second trimester ([facility]) state, incidental 26 weeks gestation of ([facility]) [facility]* Diagnosis Size of fetus inconsistent with dates in second trimester ([facility])- Primary Third trimester ([facility]) state, incidental 28 weeks gestation of ([facility]) [facility] Dis[facility] instructions Additional Instructions Regular diet. No activity restrictions.[facility] Work Phone: Reason for referral (narrative)* Diagnostic Procedure Only (Routine) - ClosedSpecialtyDiagnoses / ProceduresReferred By Contact Referred To ContactXR IMAGING Diagnoses Internal derangement of left knee Procedures XR KNEE GENERAL 4V AP BOTH/PA BOTH/LAT/MERC LEFT RADIOLOGIC EXAM KNEE COMPLETE 4/MORE VIEWS Audrey Morgan MD [address] [place] [address] [place] [address] Referral IDStatusReasonColfax DateExpiration DateVisits RequestedVisits [id number] Auto-Generated Referral / [facility]Reason for visit Narrative* Diagnostic Procedure Only (Routine) - ClosedSpecialtyDiagnoses / ProceduresReferred By ContactReferred To Contact XR IMAGING Diagnoses Internal derangement of left knee Procedures XR KNEE GENERAL 4V AP BOTH/PA BOTH/LAT/MERC LEFT RADIOLOGIC EXAM KNEE COMPLETE 4/MORE VIEWS Audrey Morgan MD [address] [place] [address] [place] [address] Referral IDStatusReasonStart DateExpiration DateVisits RequestedVisits [id number] Auto-Generated Referral / [facility] Summary Purpose Family History Relationship Condition [...] section and content) DATE CREATED AUTHOR 07/03/2022 [facility] DATE CREATED AUTHOR AUTHOR'S ORGANIZ ATION 10/12/2022 [facility] DATE CREATED AUTHOR AUTHOR'S ORGANIZ ATION 11/15/2022 [facility] DATE CREATED AUTHOR AUTHOR'S ORGANIZ ATION 06/10/2023 [facility] DATE CREATED AUTHOR AUTHOR'S ORGANIZ ATION 03/20/2025 [facility] DATE CREATED AUTHOR AUTHOR'S ORGANIZ ATION 07/15/2025 [facility] EPIC Care Teams (unrecognized sec tion and content) Team Status: Inactive Member Role Status Dates Shannon Glez MD Primary Care Provider Active Kandace Gillespie Provider, Attending ProviderActive Team Status: Active Member Role Status Dates Shannon Glez MD Primary Care Provider Active Reason for Visit (unrecogniz ed section and content) ReasonCommentsPost-op VisitIncision checkReasonCommentsAmenorrheaReasonComments Routine VisitReasonCommentsRoutine VisitWell Women VisitSTI Screening Source Comments (unrecognize d section and content) In the event this informatio n is protected by the Federal Confidentiality of Alcohol and Drug Abuse Patient Records regulations: The Federal rules restrict any use of the information to criminally investigate or prosecute any alcohol or drug abuse patient.[facility] FOR RECORDS PERTAINING TO PATIENTS WHO [...] BE BASED ON THE PRIMARY CLINICAL RECORDS. [facility] [employer] [facility]. provides no warranty or guarantee of the accuracy or completeness of information in this document.
--- OUTSIDE RECORDS SUMMARY | 2025-08-31 20:21 | XMS_ITS | Clinical Summary ---
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.edu/. Last address used for [id number] [facility]3CommentsUnknownSex and Gender InformationValueDate RecordedSex Assigned at BirthNot on fileLegal RamIurquy47/15/2023 12:22 PM ESTGender IdentityNot on fileSexual OrientationNot on file Last Filed Vital Signs Vital SignReadingTime TakenCommentsBlood Pressure--Pulse--Temperature-- Respiratory Rate--Oxygen Saturation--Inhaled Oxygen Concentration--Ysceip92 kg (130 lb)11/14/2022 8:31 AM CFVXacrrk362 cm (5' 3 )11/14/2022 8:31 AM EDTBody Mass Index23.03011/14/2022 8:31 AM EDT Plan of Treatment Health MaintenanceDue DateLast DoneCommentsAnxiety Bgtghughi61/27/2015Depression Haslkqtfb67/27/2015HIV Xqbmloohp46/27/2015Hepatitis C Vsangfhfw05/27/2015 Cervical Cancer Mayjuxsgd08/27/2018Covid-19 Vaccine (1 - 2024- season) 2025Influenza Vaccine (#1)5109/28/2012, 08/13/2008DTaP,Tdap,Td Vaccine (8 - Td or Tdap)6002/14/2016, 02/12/2009, 04/01/2002, Additional history existsHPV AciqtojHunmhpgvm42/12/2009, 10/30/2008, 08/13/2008Hepatitis B WoncdjtIyhkopjqu07/13/2016, [birth year], Additional history exists Insurance
--- OUTSIDE RECORDS SUMMARY | 2025-08-31 20:21 | XMS_ITS | Clinical Summary ---
Demographics Address [address] [place] [address] Home Phone Mobile Phone Email Address Preferred Language en Marital Status Unmarried Anabaptist Affiliation Unknown Race White Ethnic Group Not or Lati no Author Organization [facility] Address [address] [place] [address] Support Name Relationship Address Phone Glenn Marks Significant other 09/[address] [place] [address] December Aguila Mother [address] [place] [address] Care Team Providers Care Customer Marketing Intern Name Role Phone Unavailable Primary Care Provider Unavailabl e Allergies No known active allergies Medications MedicationSigDispense QuantityRefillsLast FilledStart DateEnd DateStatus Zwbjeisr-Fyb-Pf-FA (, w/Iron & FA,) 27-0.8 MG tablet 1 (one) time each day at the same time.01/01/2023ctive omeprazole (PriLOSEC) [address] tucker Indications:Gastroesophageal Reflux Disease,HeartburnTake 1 capsule (20 mg) by mouth in the morning. Take before meals. Do not crush or chew. 30 capsule 5Active Encounters DateTypeDepartmentCare SjefLovrcaibnip41/29/2025 4:00 PM ESTRoutine [facility] Jessica AMADOR [facility] [place] [phone] Blanquita Mathews NP 35 weeks gestation of ([facility]); Third trimester ([facility]); Gastroesophageal reflux disease without /29/2025amboo flowsheet NOMRoopa AMADOR [facility] [place] [phone] Blanquita Mathews NP 08/12/2025 1:20 PM ESTRoutine [facility] Jessica AMADOR [address] [place], [place] [address] [place] [address] Mamie Pascual PA 31 weeks gestation of ([facility]); Third trimester ([facility]); Gastroesophageal reflux disease without lposszyfcjt62/10/2025amboo flowsheet [facility] Jessica [address] [place] [address] Mamie Pascual PA 07/29/2025 1:40 PM ESTRoutine [facility] Jessica AMADOR [address] [place] [address] [place] [phone] Sanjeev Casey, Third trimester ([facility]); 31 weeks gestation of ([facility]); Gastroesophageal reflux disease without rpjiwsmybbm17/26/2025 1:00 PM EST Ancillary Procedure [facility] Jessica [address] [place] [phone] Size of fetus inconsistent with dates in second trimester ([facility])07/14/2025 11:20 AM ESTRoutine [facility]OM[facility] Jessica [address] [place] [address] Mamie Pascual PA Size of fetus inconsistent with dates in second trimester ([facility]) (Primary Dx); Third trimester ([facility]); 28 weeks gestation of ([facility])07/14/2025amb flowsheet [facility] Jessica [address] [place] [address] Mamie Pascual PA 07/01/2025Patient Outreach [facility] [address] [place] [address] Mamie Tim LPN 06/30/2025 11:00 AM EDTRoutine [facility] [address] [place] [address] [place] [phone] Sanjeev Casey, Second trimester ([facility]); 26 weeks gestation of ([facility])06/30/2025bstract [facility] [address] [place] [address] Mamie Tim LPN 06/30/2025linisync Result Encounter NOMS External Department Unsolicited Mamie Pascual PA 06/15/2025 11:30 AM EDTRoutine NOMS Jessica AMADOR [address] [facility] [place] [phone] Mamie Pascual PA Second trimester ([facility]); 24 weeks gestation of ([facility]); Diabetes mellitus xpcqodrqe84/13/2025amboo flowsheet [facility] Jessica AMADOR [address] [facility] [place] [address] Mamie Pascual PA 06/08/2025Travelfrom Last 3 Months Family History Medical HistoryRelationNameCommentsMental [...] RecordedSex Assigned at BirthNot on fileLegal Sex Zahpea4811/15/2022 7:27 PM EDTGender GdvivehrAhhbmf27/15/2023 7:27 PM EDTSexual OrientationNot on file Last Filed Vital Signs Vital SignReadingTime TakenCommentsBlood Ymrcnctu091/7008/31/2025 4:34 PM EST Pulse--Temperature--Respiratory Rate--Oxygen Saturation--Inhaled Oxygen Concentration--Rdfign63.3 kg (174 lb 12.8 oz)08/31/2025 4:34 PM OHAWrqjzz564 cm (5' 3 )02/02/2023 9:28 AM EDTBody Mass Index30.9602/02/2023 9:28 AM EDT Plan of Treatment DateTypeDepartmentCare Team (Latest Contact Info)Cokskmdmlse50/07/2026 11:00 AM ESTRoutine [facility] Jessica OBGYN [address] [facility] [place] [phone] Sanjeev Casey DO [address] [address] Procedures Procedure NamePriorityDate/TimeAssociated DiagnosisCommentsPOCT URINALYSIS SBHRFTOXQrldkvj56/29/2025 4:43 PM EST 35 weeks gestation of ([facility]) Third trimester ([facility]) POCT URINALYSIS WPSLVCIADrkvrxd62/10/2025 2:20 PM EST 31 weeks gestation of ([facility]) POCT URINALYSIS WLXMDZEKAxmvmyr56/26/2025 2:26 PM EST Third trimester ([facility]) 31 weeks gestation of ([facility]) US OB FOLLOW UP TRANSABDOMINAL GKIUJGPHJfmixku65/26/2025 1:17 PM EST Size of fetus inconsistent with dates in second trimester ([facility]) POCT URINALYSIS HUMWBHYUErtbpcp00/28/2025 11:32 AM EDT 26 weeks gestation of ([facility]) GLUCOSE 1 UNXRVzasasb35/28/2025 11:02 AM EDT ALL CBC WITH AUTO FJFGBmybplo68/28/2025 11:02 AM EDT POCT URINALYSIS NCIFJAREDypbgjs53/13/2025 1:39 PM EDT Second trimester ([facility]) from Last 3 Months Results * (ABNORMAL) POCT urinalysis dipstick manually resulted (08/31/2025 4:43 PM EST) Only the most recent of5 resultswithin the time period is included. ComponentValueRef RangeTest MethodAnalysis TimePerformed AtPathologist Signature Color, UAYellowClarity, UAClearGlucose, UANegativeNegative - 2000(110) ++++ mg/dLBilirubin, UANegativeNegative - 4(70) +++ mg/dLKetones, UANegativeNegative - 160(16) ++++ mg/dLSpec Grav, UA1.0301 - 1.03Blood, UANegativeNegative - 50 Enrique/mcLpH, UA6.05 - 9Protein, UATraceNegative - 2000(20) ++++ mg/dLUrobilinogen, UA0.20.2 - 12 mg/dLLeukocytes, UANegativeNegative - 500+++ Lizzeth/mcLNitrite, UA NegativeNegative - PositiveSpecimen (Source)Anatomical Location / Laterality Collection Method / VolumeCollection TimeReceived KkiiNqfhb46/29/2025 4:43 PM EST Narrative Authorizing ProviderResult TypeResult StatusBlanquita Mathews NPPOINT OF CARE TEST ENTER/EDIT ORDERABLESFinal Result * US OB follow up transabdominal approach (07/29/2025 1:17 PM EST)Anatomical RegionLateralityModalityBodyUltrasoundSpecimen (Source)Anatomical Location / LateralityCollection Method / VolumeCollection TimeReceived Time08/04/2025 10:04 AM EST Impressions 08/04/2025 10:40 AM EST Single, live intrauterine , current sonographic age of 31 weeks and 4 days, with an estimated date of delivery of September 26, 2025. (prior HOLDEN October 01, 2025) * ??Estimated Weight (g) by Percentile is based upon an accurate estimated age based onlast menstrual period. ?? TRANSCRIBED BY: ? ELECTRONICALLY SIGNED BY: Alejandro Guadalupe MD Narrative 08/04/2025 10:40 AM EST FINDINGS: Comparison May 18, 2025 A single, live intrauterine is present with normal cardiac rate of 136 beats per minute. Normal activity and amniotic fluid volume. Amniotic fluid index is 15 cm. ??Morphology is grossly normal. The cervix is not seen due to positioning. ??The current sonographic age is 31 weeks and 4 days, based on the following measurements: ?BPD ? 7.9 cm (31 weeks, 4 days) ?Head Circumference ?28.8 cm (31 weeks, 4 days) ?Abdominal Circumference ?27.7 cm (31 weeks, 5 days) ?Femur Length ?6.1 cm (31 weeks, 4 days) ?Presentation ? Cephalic ? Weight (g) by Percentile ?? 60.4 % * ??(prior 44.1%) These measurements result in an estimated date of delivery of September 26, 2025. ??The current estimated weight is 1810 grams (4 pounds, 0 ounces). ?? Procedure Note Alejandro Guadalupe MD - 08/04/2025 FINDINGS: Comparison May 18, 2025 A single, live intrauterine is present with normal cardiacrate of 136 beats per minute. Normal activity and amniotic fluidvolume. Amniotic fluid index is 15 cm. Morphology is grossly normal. Thecervix is not seen due to positioning. The current sonographic ageis 31 weeks and 4 days, based on the following measurements: BPD 7.9 cm (31 weeks, 4 days) Head Circumference 28.8 cm (31 weeks, 4 days) Abdominal Circumference 27.7 cm (31 weeks, 5 days) Femur Length 6.1 cm (31 weeks, 4 days) Presentation Cephalic Weight (g) by Percentile 60.4 % * (prior 44.1%) These measurements result in an estimated date of delivery of September. The current estimated weight is 1810 grams (4 pounds, 0ounces). IMPRESSION: Single, live intrauterine , current sonographic age of 31 weeksand 4 days, with an estimated date of delivery of September 26, 2025.(prior HOLDEN October 01, 2025) * Estimated Weight (g) by Percentile is based upon an accurateestimated age based on last menstrual period. TRANSCRIBED BY: ELECTRONICALLY SIGNED BY: Alejandro Guadalupe MD Authorizing ProviderResult TypeResult StatusAmy Ankur SOTELO OB US PROCEDURES Final Result * GLUCOSE 1 HOUR (06/30/2025 11:02 AM EDT)ComponentValueRef RangeTest Method Analysis TimePerformed AtPathologist SignatureGLUCOSE 1 HQZM894<130 mg/dLTBH Specimen (Source)Anatomical Location / LateralityCollection Method / Volume Collection TimeReceived Time06/30/2025 11:02 AM EDT1 11:13 AM EDT Narrative [facility] - 06/30/2025 1:58 PM EDT Authorizing ProviderResult TypeResult StatusAmy Ankur TRAORE BLOOD ORDERABLES Final ResultPerforming OrganizationAddressCity/State/ZIP CodePhone Number [facility] * (ABNORMAL) ALL CBC WITH AUTO DIFF (06/30/2025 11:02 AM EDT)ComponentValueRef RangeTest MethodAnalysis TimePerformed AtPathologist SignatureTBH WBC8.44.0 - 11.0 10 3/uLTBHTBH RBC3.82(L)4.20 - 5.40 10 6/uLTBHTBH HGB12.012.0 - 16.0 g/dL TBHTBH HCT35.5(L)36.0 - 48.0 %TBHTBH MCV92.981.0 - 99.0 fLTBHTBH MCH31.426.7 - 34.0 pgTBHTBH MCHC33.829.9 - 35.2 g/dLTBHTBH RDW13.311.0 - 15.0 %TBHTBH QSI784 150 - 450 10 3/uLTBHTBH MPV10.09.5 - 13.5 fLTBHNEUTROPHILS PERCENT AUTO73.1 43.0 - 75.0 %TBHLYMPHOCYTES PERCENT AUTO15.6(L)20.5 - 60.0 %TBHMONOCYTES PERCENT AUTO6.91.7 - 12.0 %TBHTBH EO %3.30.9 - 7.0 %TBHBASOPHILS PERCENT AUTO 0.40.2 - 2.0 %TBHIMMATURE GRANULOCYTES PCT AUTO0.7(H)0.0 - 0.5 %TBHNEUTROPHILS ABSOLUTE AUTO6.11.4 - 6.5 10 3/uLTBHLYMPHOCYTES ABSOLUTE AUTO1.31.2 - 3.8 10 3/uLTBHMONOCYTES ABSOLUTE AUTO0.60.3 - 0.8 10 3/uLTBHTBH EO #0.30.0 - 0.7 10 3/uLTBHBASOPHILS ABSOLUTE AUTO0.00.0 - 0.1 10 3/uLTBHIMMATURE GRANULOCYTES ABS AUTO0.06(H)0.00 - 0.03 10 3/uLTBHSpecimen (Source)Anatomical Location / LateralityCollection Method / VolumeCollection TimeReceived Time06/30/2025 11:02 AM EDT1 11:13 AM EDT Narrative [facility] - 06/30/2025 11:55 AM EDT Authorizing ProviderResult TypeResult StatusAmy Ankur PACLINISYNCFinal Result Performing OrganizationAddressCity/State/ZIP CodePhone Number [facility] from Last 3 Months
--- OUTSIDE RECORDS SUMMARY | 2025-08-31 20:21 | XMS_ITS | Patient Health Record ---
Author Organization [employer] [facility] Teleborderic es Address [address] [place] [address] Care Team Providers Care Specifications Checker Name Role Phone Dominic Morenoreilly Primary Care Provider [phone] Allergies No Known Allergies Reason For Referral [...] nts DTap (DAPTACEL) Unknown 1997 Administered DTap (DAPTACEL)Ymuqzuc3808/06/1997AdministeredDTap (DAPTACEL)Pifvwcw8610/08/1997 AdministeredDTap (DAPTACEL)Drthgcg2203/02/2000AdministeredDTap (DAPTACEL)Unknown 04/01/2002AdministeredHepA - Havrix (ped/adol 2 dose)Swzjgzz5703/20/2007 AdministeredHepatitis A YEXAAAiucysi21/11/2008dministeredHepatitis B ADULT Ytfwkkd71 1997AdministeredHepB - Engerix (Peds/Adol)Zdiwsvf2205/27/1997 AdministeredHepB - Engerix (Peds/Adol)Dlkwsbv7210/08/1997AdministeredHib - ActHIB Vasxzqr6705/27/1997AdministeredHib - PwgFLXMrkclkm1997AdministeredHib - WlmTVKYtcjwvj67/05/1998AdministeredHib - LoyQBLZpdmews81/30/2000AdministeredHPV - Gardasil 9Vdrcwqq31/11/2008dministeredHPV - Gardasil 6Cxkwfnt77/27/2009 AdministeredHPV - Gardasil 7Bcxlril29/12/2009dministeredInfluenza 3+ PRIVATE Snakggf6008/13/2008dministeredInfluenza 3+ ZPOELFAYnkeupj97/26/2013dministered Meningococcal (MENACTRA)Ldvtsor6102/12/20090870MzybjoqzbrwfNWVZbyswes26/30/2000 XzzvdbfiutelUQXDbvgppo90/30/2002AdministeredPolio, VJBXvzpvkx1997 AdministeredPolio, GPAUzicidq1997AdministeredPolio, BJAFiadokf99/30/2000 AdministeredPolio, EMFJrhbxna16/30/0495NzfvzppjgzjpDCFNDfaxmhj34/12/2009 NufgsskhnyuiLFARAfwnqpw26/24/2024AdministeredVaricella (VARIVAX)Unknown 03/02/2000Administered Social History Tobacco Use: Social [...] in the past year?1 or 2 (0 points)Peyavi7QercgpbfovoysqWwciodkhFfjgmyghz affecting healthPoor/Risky Behaviors:Denies-Communication Barrier:Language Barrier?:No Tobacco Use:Social InfoQuestionAnswerNotesTobacco Control (Standard)Tobacco use: Nonsmoker Problems Problem Type SNOMED Code ICD Code Onset Dates Problem Status W/U Status Risk Notes Problem Anxiety (01099388) Anxiety (F41.9) ActiveconfirmedProblemChronic fatigue syndrome (45527456)Chronic fatigue (R53.82)ActiveconfirmedProblemEpisodic mood disorder (77408756961719)Episodic mood disorder (F39)ActiveconfirmedProblemPosttraumatic stress disorder (49614822)Post traumatic stress disorder (PTSD) (F43.10)ActiveconfirmedProblem Body mass index 20-24 - normal (045384447)BMI 20.0-20.9, adult (Z68.20)Active confirmed Plan Of Treatment Pending Test Test Name Order Date CBC w/ Auto Diff 02/28/2024 CMP 02/28/2024 Iron 02/28/2024 Insurance Providers Payer Name Payer Address Payer Phone Subscriber Number Group Number Insured Name Patient Relationship to Insured Coverage Start Date Coverage End Date BH [employer] [place] Medicaid [address] [address] [place] [address] [id number] Sara HARDIN - patient is the nrfgnxe3910/04/2023H Wrap CFC HumanaPO [address] [place] [id number], ELISSASelrick - patient is the jfqgzly4710/04/2023zBH [employer]-termed 10/03/[address] [place] [id number], ELISSASelrick - patient is the [id number] MEDICAID CFC after [employer]-termed 10/03/22[address] [place] [id number], ELISSASelf - patient is the [id number] CFC after [employer]-termed 10/03/22[address] [place] [id number], ELISSASelrick - patient is the [id number] ADVANTAGE- termed 10/03/22[address] [place] [phone], GLENDABrandonrick - patient is the [id number] DQ [employer]- termed 10/03/22[address] [place] [phone] [id number], GLENDABrandonrick - patient is the [id number] zDental MEDICAID CFC after [employer]-termed 10/03/[address] [place] [id number], ELISSASelf - patient is the [id number] [facility] [address] [place] [phone], ELISSASelf - patient is the insured /[facility] [address] [place] [address] [id number], ELISSASelf - patient is the insured /nthem Medical [place] MedicaidPO [address] [place] [id number], ELISSASelf - patient is the insured /09/2022Wrap [facility] [place] [address] [id number], ELISSASelf - patient is the insured /[place] MEDICAID [place] [place] [phone] [id number], ELISSASelf - patient is the [id number] Medical (General) History Medical History History ICD Code Anxiety MiscarriageSurgical History Surgery Date(Month/Year) D&C 07/2021 09/2023 Hospitalization History Reason Date(Month/Year) Child
--- OUTSIDE RECORDS SUMMARY | 2025-08-31 20:21 | XMS_ITS | Encounter Summary ---
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 Name Role Phone Unavailable Primary Care Provider Unavailabl e Encounter Details DateTypeDepartmentCare Team (Latest Contact Info)Fwqhggcnelj93/29/2025Bamboo flowsheet [facility] Jessica OBGYMaday [address] [place] [address] Blanquita Mathews, DEEPTHI [address] [place] [address] Social History Tobacco UseTypesPacks/DayYears UsedDateSmoking Tobacco: NeverSmokeless [...] RecordedSex Assigned at BirthNot on fileLegal Sex Wewcgf4311/15/2022 7:27 PM EDTGender MvxkeehqUduxjm27/15/2023 7:27 PM EDTSexual OrientationNot on filedocumented as of this encounter Plan of Treatment DateTypeDepartmentCare Team (Latest Contact Info)Janwxjwswdr90/07/2026 11:00 AM ESTRoutine [facility] Jessica OBGYN [address] [place] [address] Sanjeev Casey DO [address] [place] [address] documented as of this encounter Visit Diagnoses Not on filedocumented in this encounter
--- OUTSIDE RECORDS SUMMARY | 2025-08-31 20:21 | XMS_ITS | Clinical Summary ---
Author Organization [facility] Address [address] [place] [address] Care Team Providers Care Director Of Women'S Services Name Role Phone None, Provided MD Primary Care Provider Unavaila ble Allergies No known active allergies Medications No known medications Active Problems ProblemNoted DateDiagnosed DatePatellar maltracking, left04/24/2023Sprain of left knee04/24/2023atellar dislocation, left, initial ildosnqve96/22/2023 CommentsYes Social History Tobacco UseTypesPacks/DayYears UsedDateSmoking Tobacco: [...] partner or ex-partner?No12/31/2023HQ-2 AnswerDate RecordedPatient Health Questionnaire-2 [id number] Safety & EnvironmentAnswerDate RecordedWithin the last year, have you been afraid of your partner or ex-partner?No12/31/2023Within the last year, have you been humiliated or emotionally abused in other ways by your partner or ex-partner?No12/31/2023 Within the last year, have you been kicked, hit, slapped, or otherwise physically hurt by your partner or ex-partner?No12/31/2023Within the last year, have you been raped or forced to have any kind of sexual activity by your part ner or ex-partner?No12/31/2023hysically or Sexually AbusedNot on file12/31/2023 CommentsYesSex and Gender InformationValueDate RecordedSex Assigned at BirthNot on fileLegal OncGjvekf21/08/2023 4:32 PM EDTGender IdentityNot on file Sexual OrientationNot on file Last Filed Vital Signs Vital SignReadingTime TakenCommentsBlood Pressure--Pulse--Temperature-- Respiratory Rate--Oxygen Saturation--Inhaled Oxygen Concentration--Kyhmeu85 kg (150 lb)04/24/2023 10:54 AM CQVIoicqt036 cm (5' 3 )04/24/2023 10:54 AM EDTBody Mass Index26.5708 10:54 AM EDT Plan of Treatment Health MaintenanceDue DateLast DoneCommentsVaricella Vaccines (2 of 2 - 2-dose childhood series)Depression Neypdojsy48/27/2009Pap Smear 2018Adult Uqgwnde38COVID-19 Vaccine ( season) 2025Influenza Vaccine (#1), 08/13/2008Zoster Vaccines (1 of 2)HIB LmkaurnqPorbamxck91/30/2000, 1997, 1997, Additional history existsIPV AssruhduTvklrxpmg77/30/2002, 03/02/2000, 1997, Additional history existsHPV VaccinesCompleted 02/12/2009, [...]
== END 2025-08-31 20:15 | disposition home or self-care (01) ==
LOC: LAB 20:14
PROVIDERS: Visit Provider Nurse Practitioner Family
DX: Z34.93 Encounter for supervision of normal pregnancy, unspecified, third trimester (principal); Z3A.35 35 weeks gestation of pregnancy
CPT/HCPCS: 87081